=== PATIENT | male | born 1950 | race Caucasian/White ===

== ENCOUNTER 2016-04-13 21:10 | Observation (INO) ==
[2016-04-13] MEDS ORDERED: Ondansetron 4 MG/2 ML VIAL IV ONE (21:21)
[2016-04-13] MEDS ORDERED: Ipratropium/Albuterol Neb 3 ML IH ONE (21:21)
[2016-04-13] MEDS ORDERED: *HR* Morphine 2 MG/ML SYRINGE IV ONE (21:21)
--- NOTE | 2016-04-13 21:24 | Emergency Department Note ---
Disposition Clinical Impression: Chest pain, Edema, COPD (chronic obstructive pulmonary disease) Disposition: Admitted As Inpatient Condition: Fair Referrals: Talita Coffey, FIRE FIGHTER [Primary Care Provider] - Forms: ED Satisfaction Letter Time of Disposition: 23:10 Chest Pain HPI - General Chief Complaint: ED Chest Pain Stated Complaint: chest pain Time Seen by Provider: 04/13/16 21:22 Source: patient, EMS Mode of arrival: EMS Limitations: no limitations Vital Signs Reviewed: Yes Nursing Notes Reviewed: Yes - History of Present Illness HPI Narrative: This is a 65-year-old male who presents with midsternal chest pain starting about 2 hours ago. Patient states that associated shortness of breath. Patient 's not had any cardiac history but he does state he has chronic leg swelling. Patient states he was recently admitted last month for sepsis due to pneumonia. Patient does have COPD but does not wear oxygen at home although while he was rehabbing after his pneumonia he was wearing oxygen. Patient is not running any fevers. Pt complaint: chest pain Onset (ago): hour(s) (2) Severity scale (1-10): 4 - Related Data Home Medications Medication Instructions Recorded Confirmed Cyanocobalamin (Vitamin B-12) 1,000 mcg PO DAILY 01/25/16 03/01/16 [Vitamin B12] Folic Acid 400 mcg PO DAILY 01/25/16 03/01/16 Lovastatin [Mevacor] 20 mg PO DAILY 01/25/16 03/01/16 Mometasone/Formoterol [Dulera 200 2 puff IH BID 01/25/16 03/01/16 Mcg/5 Mcg Inhaler] Potassium Chloride [Klor-Con 10] 20 meq PO DAILY 01/25/16 03/01/16 Albuterol Sulfate [Albuterol 2 puff IH Q6HR PRN 03/01/16 03/01/16 Inhaler] Previous Rx's Medication Instructions Recorded Albuterol Neb [Proventil Neb] 2.5 mg IH Q4HR PRN #30 vial.neb 10/20/15 Ipratropium/Albuterol Neb [Duoneb] 3 ml IH Q6HR 30 Days 01/30/16 OxyCODONE Immed Rel [Roxicodone 5 5 mg PO Q6HR PRN #25 tablet 01/30/16 MG] Amlodipine [Norvasc] 10 mg PO DAILY #0 tablet 03/05/16 Beclomethasone Diprop 80mcg [QVAR 2 puff IH BIDR puff 03/05/16 80 mcg] Cefuroxime PO [Ceftin] 500 mg PO Q12HR #6 tablet 03/05/16 Metoprolol [Lopressor] 25 mg PO BID #60 tablet 03/05/16 Moxifloxacin HCl [Avelox] 400 mg PO DAILY #3 tablet 03/05/16 PredniSONE 40 mg PO DAILY tablet 03/05/16 Tiotropium [Spiriva] 18 mcg IH DAILYR inh 03/05/16 L.acidoph,Paracasei, B.lactis 1 each PO DAILY #30 capsule 04/01/16 [Probiotic] Ondansetron ODT [Zofran ODT] 4 mg SL Q6HR #14 tab.rapdis 04/01/16 Allergies Allergy/AdvReac Type Severity Reaction Status Date / Time ibuprofen [From Motrin] AdvReac Gastrointestinal Verified 04/13/16 21:16 Upset levofloxacin [From Levaquin] AdvReac See Verified 04/13/16 21:16 Comments All systems ED: reviewed and negative except as stated. Constitutional: Denies: fever, chills, weakness, weight change Eyes: Denies: eye pain, eye discharge, vision change ENT ED: Denies: ear pain, throat pain, dental pain, hearing loss, epistaxis, congestion, dysphagia Cardiovascular: Reports: chest pain. Denies: palpitations, dyspnea on exertion , edema, syncope Respiratory: Reports: dyspnea. Denies: cough, wheezes, hemoptysis, stridor Gastrointestinal: Denies: abdominal pain, nausea, vomiting, diarrhea, constipation, hematemesis, melena, hematochezia Genitourinary: Denies: urgency, dysuria, frequency, hematuria Musculoskeletal: Denies: back pain, neck pain, arthralgia, myalgia Integumentary: Denies: rash, abrasion, lesions Neurological: Denies: headache, weakness, numbness, paresthesias, confusion, abnormal gait, vertigo Psychiatric: Denies: anxiety, depression, suicidal thoughts, homicidal thoughts , auditory hallucinations, visual hallucinations Endocrine: Denies: fatigue Hematological/Lymphatic: Denies: easy bleeding, easy bruising Allergic/Immunologic: Denies: facial swelling, urticaria Chest Pain PMH - Past Medical History Medical history: Reports: asthma, COPD, hypertension Surgical history: Reports: other Psychiatric history: Reports: depression - Social History Smoking Status: Current every day smoker Alcohol use: Reports: none Drug use: Reports: none Physical Exam - General Limitations: no limitations General appearance: alert, in no apparent distress - Head Head exam: atraumatic, normocephalic, normal inspection - Eye Eye exam: Present: normal appearance, PERRL, EOMI - ENT ENT exam: normal exam, normal oropharynx, mucous membranes moist - Expanded ENT Exam External ear exam: Present: normal external inspection Mouth exam: Present: normal external inspection Teeth exam: Present: normal inspection Throat exam: Present: normal inspection - Neck Neck exam: Present: normal inspection, full ROM, trachea midline - Chest Chest inspection: Present: normal inspection, symmetric chest wall rise - Respiratory Respiratory exam: Present: wheezes, other (rhonchi) - Cardiovascular Cardiovascular exam: Present: regular rate, normal rhythm, normal heart sounds - Abdominal Exam Abdominal exam: Present: soft, Non-Tender. Absent: tenderness, distention, guarding, rebound, rigidity - Extremities Exam Extremities exam: Present: normal inspection, full ROM. Absent: tenderness, pedal edema - Expanded Upper Extremity Exam Shoulder exam: Present: normal inspection, full ROM Arm exam: Present: normal inspection, full ROM Elbow exam: Present: normal inspection, full ROM Forearm/Wrist exam: Present: normal inspection, full ROM Hand exam: Present: normal inspection, full ROM Vascular exam: Normal: capillary refill, radial pulse - Expanded Lower Extremity Exam Hip/Pelvis exam: Present: normal inspection, full ROM Upper leg exam: Present: normal inspection, full ROM Knee exam: Present: normal inspection, full ROM Lower leg exam: Present: normal inspection, full ROM Ankle exam: Present: normal inspection, full ROM Foot/toe exam: Present: normal inspection, full ROM Neurovascular/Tendon exam: Absent: motor deficit, sensory deficit, tendon deficit - Back Exam Back exam: Present: normal inspection, full ROM. Absent: tenderness - Neurological Exam Neurological exam: Present: alert, oriented X3 - Expanded Neurological Exam Patient oriented to: Present: person, place, time Coma Scale Eye Opening: Spontaneous Coma Scale Motor Response: Obeys Commands Coma Scale Verbal Response: Oriented Coma Scale Total: 15 - Psychiatric Psychiatric exam: Present: normal affect, normal mood - Skin Skin exam: Present: warm, dry, intact, normal color Course - Consultations Consultation #1: I spoke with Dr. Poonam kenyon to admit. Time: 23:27 Vital Signs Temperature 98.8 F 04/13/16 21:13 Pulse Rate 62 04/13/16 21:13 Respiratory Rate 16 04/13/16 21:13 Blood Pressure 185/106 04/13/16 21:13 O2 Sat by Pulse Oximetry 97 04/13/16 21:13 Temperature 98.8 F 04/13/16 21:13 Pulse Rate 62 04/13/16 22:03 Respiratory Rate 20 04/13/16 22:03 Blood Pressure 146/80 04/13/16 22:03 O2 Sat by Pulse Oximetry 100 04/13/16 22:03 Oxygen Delivery Oxygen Delivery Aerosol Mask Chest Pain - Medical Records Medical records reviewed: Yes I reviewed the patient's medical records. - Lab Data Lab results reviewed: Yes I reviewed the patient's lab results. Result diagrams: 04/13/16 21:15 04/13/16 21:15 Lab Results 04/13/16 04/13/16 04/13/16 Range/Units 21:15 21:15 21:15 WBC 7.1 (4.3-11.1) K/mcL RBC 4.92 (4.19-5.50) M/mcL Hgb 15.5 (12.9-16.9) g/dL Hct 48.3 (37.5-50.1) % MCV 98.2 (83.0-100.0) fL MCH 31.5 (28.0-33.3) pg MCHC 32.1 (31.6-35.5) g/dL RDW 13.2 (11.5-14.5) % Plt Count 229 (140-400) K/mcL MPV 9.9 (9.4-12.4) fL Immature Gran % 0.4 (0-4) % Seg Neutrophils % 73.7 % Lymphocytes % 15.0 % Monocytes % 9.9 % Eosinophils % 0.6 % Basophils % 0.4 % Neutrophils # 5.2 (1.6-8.9) K/mcL Lymphocytes # 1.1 (0.6-4.6) K/mcL Monocytes # 0.7 (0.0-1.3) K/mcL Eosinophils # 0.0 (0.0-0.6) K/mcL Basophils # 0.0 (0.0-0.2) K/mcL PT 12.3 H (9.4-12.1) Seconds INR 1.1 APTT 27.6 (26.0-36.0) Seconds D-Dimer 906 H (0-500) ng/mLFEU Sodium 142 (136-145) mEq/L Potassium 4.1 (3.5-4.5) mEq/L Chloride 101 (98-109) mEq/L Carbon Dioxide 30 H (19-29) mEq/L BUN 16 (8-26) mg/dL Creatinine 1.14 (0.72-1.25) mg/dL Est GFR ( Amer) > 60 (> 60) Est GFR (Non-Af Amer) > 60 (> 60) BUN/Creatinine Ratio 14 (6-26) Glucose 94 (70-99) mg/dL Calculated Osmolality 295 (280-300) Calcium 9.5 (8.6-10.8) mg/dL Troponin I (0-0.03) ng/mL B-Natriuretic Peptide (0-100) pg/mL 04/13/16 04/13/16 Range/Units 21:15 21:15 WBC (4.3-11.1) K/mcL RBC (4.19-5.50) M/mcL Hgb (12.9-16.9) g/dL Hct (37.5-50.1) % MCV (83.0-100.0) fL MCH (28.0-33.3) pg MCHC (31.6-35.5) g/dL RDW (11.5-14.5) % Plt Count (140-400) K/mcL MPV (9.4-12.4) fL Immature Gran % (0-4) % Seg Neutrophils % % Lymphocytes % % Monocytes % % Eosinophils % % Basophils % % Neutrophils # (1.6-8.9) K/mcL Lymphocytes # (0.6-4.6) K/mcL Monocytes # (0.0-1.3) K/mcL Eosinophils # (0.0-0.6) K/mcL Basophils # (0.0-0.2) K/mcL PT (9.4-12.1) Seconds INR APTT (26.0-36.0) Seconds D-Dimer (0-500) ng/mLFEU Sodium (136-145) mEq/L Potassium (3.5-4.5) mEq/L Chloride (98-109) mEq/L Carbon Dioxide (19-29) mEq/L BUN (8-26) mg/dL Creatinine (0.72-1.25) mg/dL Est GFR ( Amer) (> 60) Est GFR (Non-Af Amer) (> 60) BUN/Creatinine Ratio (6-26) Glucose (70-99) mg/dL Calculated Osmolality (280-300) Calcium (8.6-10.8) mg/dL Troponin I 0.01 (0-0.03) ng/mL B-Natriuretic Peptide 47 (0-100) pg/mL - Radiology Data Radiology results reviewed: Yes I reviewed the patient's radiology results. - EKG Data EKG attestation: Yes I reviewed and interpreted this EKG. EKG shows normal: sinus rhythm Rate: bradycardia (58) Rhythm: NSR Grabill/QRS: normal Interpretation: no acute changes, normal EKG
[2016-04-13 21:30] LABS: Basophils % 0.4 %; Eosinophils % 0.6 %; Hematocrit 48.3 % (37.5-50.1); Hemoglobin 15.5 g/dL (12.9-16.9); Immature Granulocytes % 0.4 % (0-4); Lymphocytes # 1.1 K/mcL (0.6-4.6); Mean Corpuscular HGB Conc 32.1 g/dL (31.6-35.5); Mean Corpuscular Hemoglobin 31.5 pg (28.0-33.3); Mean Corpuscular Volume 98.2 fL (83.0-100.0); Mean Platelet Volume 9.9 fL (9.4-12.4); Monocytes # 0.7 K/mcL (0.0-1.3); Monocytes % 9.9 %; Neutrophils # 5.2 K/mcL (1.6-8.9); Platelet Count 229 K/mcL (140-400); Red Blood Count 4.92 M/mcL (4.19-5.50); Red Cell Distribution Width 13.2 % (11.5-14.5); Segmented Neutrophils % 73.7 %
[2016-04-13 21:38] LABS: INR 1.1; Prothrombin Time 12.3 Seconds (9.4-12.1)
[2016-04-13 21:40] LABS: Activated Partial Thrombo Time 27.6 Seconds (26.0-36.0)
[2016-04-13 21:42] LABS: BUN/Creatinine Ratio 14 (6-26); Blood Urea Nitrogen 16 mg/dL (8-26); Calcium 9.5 mg/dL (8.6-10.8); Carbon Dioxide 30 mEq/L (19-29); Chloride 101 mEq/L (98-109); Glucose 94 mg/dL (70-99); Osmolality,Calculated 295 (280-300); Potassium 4.1 mEq/L (3.5-4.5); Sodium 142 mEq/L (136-145); eGFR For African Americans > 60 (> 60); eGFR For Non-African Americans > 60 (> 60)
[2016-04-14] MEDS ORDERED: Albuterol 2.5 MG/3 ML NEBULIZER IH PRN (04:02)
[2016-04-14] MEDS ORDERED: *HR* OxyCODONE Immed Rel 5 MG TABLET PO PRN (04:02)
[2016-04-14] MEDS ORDERED: Naloxone 0.4 MG/ML INJ IVP PRN (04:08)
[2016-04-14] MEDS ORDERED: Acetaminophen 325 MG TABLET PO PRN (04:08)
[2016-04-14] MEDS ORDERED: 0.9 % Sodium Chloride 1,000 ML IVC SCH (04:15)
--- NOTE | 2016-04-14 04:21 | Internal Med History&Physical ---
<Urszula Goldman Chad - Last Filed: 04/14/16 05:30> Date of Encounter: 04/14/16 Time of Encounter: 03:15 Assessment and Plan (1) Chest pain Status: Acute EKG: sinus rhythm without evidence of acute ischemia CTA: No evidence of PE -evidence of coronary artery calcification -severe emphysema -no pneumothorax Troponins 0.01, trend q 6hr 28% ASCVD 10-year risk Consult cardiology due significant to risk factors Qualifiers: Chest pain type: unspecified Qualified Code(s): R07.9 - Chest pain, unspecified (2) COPD (chronic obstructive pulmonary disease) Status: Chronic continue home medication Qualifiers: COPD type: emphysema Emphysema type: unspecified Qualified Code(s): J43.9 - Emphysema, unspecified (3) Hypertension Status: Chronic continue home medication Qualifiers: Hypertension type: essential hypertension Qualified Code(s): I10 - Essential (primary) hypertension (4) Tobacco abuse Status: Chronic continues to smoke mini-cigars despite recent PNA with sepsis (5) DVT prophylaxis Status: Acute Internal Medicine - H&P: HPI Chief complaint: chest pain Admitted From: Emergency Dept History of present illness: Mr. Steven is a 65 year old male who presented to the hospital with chest pain that began around 19:30. Patient was napping at the time and awakened with an "uncomfortable feeling" and located in sub-sternal area. Pain was 1/10 at onset and 3-4/10 at its worst. Pain radiated through body to scapulae bilaterally. Sitting up made chest pain worse. Nothing made pain better. He states that pain felt like pleuritic pain he has had in the past. However, this pain was more superior in the chest than previous pain. Patient called EMS. EMS administered baby aspirin en route to ED. Patient states that pain improved while on way to hospital. Patient with recent history of pneumonia with sepsis on 02/29/16. Admits dizziness, palpitations, dyspnea that improved with "fresh cold air. Denies headache, syncope, near syncope, diaphoresis, fever, chills, nasal discharge, racing heart, nausea, vomiting During the time of patient interview, patient complained of sudden onset left shoulder pain radiating down the left arm. Pain was a 3/10 and described as piercing. Patient denied associated chest pain, neck pain, or dyspnea. Past Med Surg Social Fam HX - Past Medical History Medical history: asthma, COPD, hypertension Psychiatric history: depression - Past Surgical History Surgical History: other - Social History Smoking Status: Current every day smoker Smokeless Tobacco Status: No Alcohol use: none Drug use: none - Family History Mother Adopted: No Family Member Ethnicity: Non- Living Status: Age at : 42 Cause of : Lung cancer Hx Family Cardiac Disorders: No Hx Family Respiratory Disorders: No Hx Family Cancer: Yes (lung cancer) Hx Family GI Disorders: No Hx Family Endocrine Disorder: No Hx Family Neuromuscular Disorders: No Hx Family Neurologic Disorders: No Hx Family HEENT Disorders: No Hx Family Autoimmune Disorders: No Father Hx Family Respiratory Disorders: Yes (COPD) Internal Medicine - H&P: Meds Albuterol Neb [Proventil Neb] 2.5 mg IH Q4HR PRN #30 vial.neb 10/20/15 [Rx] Cyanocobalamin (Vitamin B-12) [Vitamin B12] 1,000 mcg PO DAILY 01/25/16 [History ] Folic Acid 400 mcg PO DAILY 01/25/16 [History] Lovastatin [Mevacor] 20 mg PO DAILY 01/25/16 [History] Mometasone/Formoterol [Dulera 200 Mcg/5 Mcg Inhaler] 2 puff IH BID 01/25/16 [ History] Potassium Chloride [Klor-Con 10] 20 meq PO DAILY 01/25/16 [History] Ipratropium/Albuterol Neb [Duoneb] 3 ml IH Q6HR 30 Days 01/30/16 [Rx] Albuterol Sulfate [Albuterol Inhaler] 2 puff IH Q6HR PRN 03/01/16 [History] Metoprolol [Lopressor] 25 mg PO BID #60 tablet 04/14/16 [Rx] PredniSONE 10 mg PO DAILY 04/14/16 [History] Tiotropium [Spiriva] 18 mcg IH DAILY 04/14/16 [History] Allergies ibuprofen [From Motrin] Adverse Reaction (Verified 04/13/16 21:16) Gastrointestinal Upset levofloxacin [From Levaquin] Adverse Reaction (Verified 04/14/16 08:07) Weakness All Systems PM: A 10-system review of systems was performed and is negative for pertinent findings except as documented above in the HPI. - Constitutional Vitals: Temp Pulse Resp BP Pulse Ox 97.6 F 80 19 158/96 92 L 04/14/16 03:51 04/14/16 03:51 04/14/16 03:51 04/14/16 03:51 04/14/16 03:51 General appearance: Present: cooperative, A&O X 3, pleasant - Eye Eye exam: Present: EOMI - Neck Neck exam general surgery: Present: full ROM, supple - Respiratory Respiratory exam: Present: CTAB, prolonged expiratory phase - Cardiovascular Cardiovascular exam: Present: RRR, +S1, +S2 - GI/Abdominal GI/Abdominal exam: Present: normal bowel sounds. Absent: hepatomegaly, splenomegaly, tenderness - Extremities Exam Extremities exam: Present: pedal edema (trace pitting edema), tenderness ( palpation lower extremities bilaterally), warm - Psychiatric Psychiatric exam: Present: anxious, normal affect Internal Med - H&P Results - Labs CBC & Chem 7: 04/13/16 21:15 04/13/16 21:15 - Attending Attestation I examined this patient and my medical decision-making was reviewed with the CREDIT COLLECTION SPECIALIST/PA/Advanced Practice Nurse/Resident Physician. I agree with the documented findings, disposition and treatment plan as described except to the extent set forth below. <Arcelia Levin R - Last Filed: 04/15/16 11:28> Date of Encounter: 04/14/16 Internal Medicine - H&P: HPI History of present illness: Mr. Steven is a 65 year old male All Systems PM: A 10-system review of systems was performed and is negative for pertinent findings except as documented above in the HPI. - Constitutional Vitals: Temp Pulse Resp BP Pulse Ox 98.2 F 71 18 133/76 89 L 04/14/16 07:25 04/14/16 07:25 04/14/16 07:25 04/14/16 07:25 04/14/16 07:25 Internal Med - H&P Results - Labs CBC & Chem 7: 04/13/16 21:15 04/13/16 21:15 - Attending Attestation Agree with management plan
[2016-04-14] MEDS ORDERED: Cefuroxime PO 500 MG TABLET PO SCH (06:00)
[2016-04-14 07:29] VITALS: BP 133/76
[2016-04-14] MEDS ORDERED: levoFLOXacin 500 MG TABLET PO SCH (09:00)
[2016-04-14] MEDS ORDERED: Pantoprazole 40 MG VIAL IVP SCH (09:00)
[2016-04-14] MEDS ORDERED: predniSONE 20 MG TABLET PO SCH (09:00)
[2016-04-14] MEDS ORDERED: Tiotropium 18 MCG inhalation IH SCH (10:00)
[2016-04-14] MEDS ORDERED: Beclomethasone 80mcg MDI IH SCH (10:00)
[2016-04-14] MEDS ORDERED: Regadenoson 0.4 MG/5 ML SYRINGE IVP ONE (10:09)
[2016-04-14] MEDS: Ipratropium/Albuterol Neb 3 ML IH SCH ×2 (10:51→15:44)
[2016-04-14] MEDS ORDERED: Ipratropium/Albuterol Neb 3 ML IH SCH (11:00)
--- NOTE | 2016-04-14 11:50 | Electrocardiograph Report ---
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
--- NOTE | 2016-04-14 12:29 | Nuclear Medicine Stress Report ---
Regadenoson Nuclear Stress Name: Ellis Steven Date of Study: 04/14/2016 Date: 1950 Ht: 70.0 in Medical Record#: [id number] Age: 65 Wt: 166.0 lb Gender: Male Order #: [id number] Location: [facility] Room: [facility] Supervising Provider: Augie Vaughn CNP Reading Physician: Alex Reyes DO, TERRY BENSON FASNC Ordering Physician: Desiree Du CNP Primary Care Physician: Talita Coffey CNP Stress Technologist: Fina Arellano [employer]INDER STE[employer], [employer] Receiving Supervisor: Byron Moulton Indications: Chest Pain Impression: Pharmacologic stress ECG is negative for ischemia at level of heart rate achieved. Gated EF = 77%. Small size, mild intensity, fixed basal inferior perfusion defect. Wall motion is normal. These findings are consistent with artifact. Perfusion imaging was negative for ischemia or infarct. History: Hypertension Hypercholesteremia History of Smoking Stress Test Summary: Stress Test Type: Pharmacologic Regadenoson 0.4mg/5ml given IV Baseline Information: Initial Heart Rate: 79 Blood Pressure: 120/80 Stress Information: Test Terminated Due to (primary): As per protocol Maximum Blood Pressure: 104/70 Maximum Heart Rate: 96 Percent Maximum Heart Rate Achieved: 62 Double Product: 9984 METS Reached: 1 Symptoms: No chest symptoms Nuclear Summary: SPECT myocardial perfusion imaging using Tc99m Sestamibi given intravenously was performed at rest and following cardiac stress testing. The resting images were obtained following initial dose of 9.9 mCi. Following stress an additional dose of 28.0 mCi was given at peak exercise or 30 seconds post regadenoson infusion. Medication Given: Time Medication Dose Units Route Findings: Stress Note * Resting ECG demonstrated normal sinus rhythm. * No baseline arrhythmias were noted. * Pharmacologic stress ECG is negative for ischemia at level of heart rate achieved. * No arrhythmias were noted during stress. * Patient had no chest pain during stress. * Normal hemodynamic responses to pharmacologic stress. Study Quality * Study quality is average. Gated EF % * Gated EF = 77%. Left Ventricle * The left ventricle is not dilated. LVEDV = 66 mL. * Normal wall motion. Inferior Perfusion Rest * The basal inferior segment shows a mild reduction in perfusion. Inferior Perfusion Stress * The basal inferior segment shows a mild reduction in perfusion. TID * No evidence of transient ischemic dilatation. TID ratio = 1.12. Lung Uptake * There is no evidence of increase lung uptake. Updated by Alex Reyes DO, MARCELINO, TERRY, [place] on 04/14/2016 12:24:09 PM electronically signed on 04/14/2016 12:25:16 PM with status of Final
--- NOTE | 2016-04-14 14:10 | Electrocardiograph Report ---
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
--- NOTE | 2016-04-14 14:24 | Discharge Summary ---
Date of Encounter: 04/14/16 Time of Encounter: 13:15 - Discharge Diagnosis (1) Chest pain Priority: Primary Status: Resolved Comments: Patient has denied chest pain since admission. Chest x-ray negative. PE ruled out with CTA. Stress test negative for ischemia or infarct, ACS ruled out. Recommend follow-up outpatient. Qualifiers: Chest pain type: unspecified Qualified Code(s): R07.9 - Chest pain, unspecified (2) COPD (chronic obstructive pulmonary disease) Priority: Secondary Status: Chronic Comments: Patient stating he has recently been started on Xolair, Spiriva, and albuterol and states that his COPD is well controlled. Recommend continued follow-up outpatient. He denied shortness of breath above his normal day of discharge. Qualifiers: COPD type: emphysema Emphysema type: unspecified Qualified Code(s): J43.9 - Emphysema, unspecified (3) DVT prophylaxis Priority: Primary Status: Acute Comments: Observation patient. Up ad jose. (4) Hypertension Priority: Secondary Status: Chronic Comments: Hypertensive at times in the middle of the night however normotensive during the day, metoprolol dosage increased and changed to metoprolol tartrate to allow for BID dosing. Recommend continued outpatient monitoring at home, keeping a log, and following up outpatient. Qualifiers: Hypertension type: essential hypertension Qualified Code(s): I10 - Essential (primary) hypertension (5) Tobacco abuse Priority: Secondary Status: Chronic Comments: Patient declined smoking cessation counseling. - Discharge Medications Prescriptions: Metoprolol [Lopressor] 25 mg PO BID #60 tablet Home Medications: Albuterol Neb [Proventil Neb] 2.5 mg IH Q4HR PRN #30 vial.neb 10/20/15 [Rx] Cyanocobalamin (Vitamin B-12) [Vitamin B12] 1,000 mcg PO DAILY 01/25/16 [History ] Folic Acid 400 mcg PO DAILY 01/25/16 [History] Lovastatin [Mevacor] 20 mg PO DAILY 01/25/16 [History] Mometasone/Formoterol [Dulera 200 Mcg/5 Mcg Inhaler] 2 puff IH BID 01/25/16 [ History] Potassium Chloride [Klor-Con 10] 20 meq PO DAILY 01/25/16 [History] Ipratropium/Albuterol Neb [Duoneb] 3 ml IH Q6HR 30 Days 01/30/16 [Rx] Albuterol Sulfate [Albuterol Inhaler] 2 puff IH Q6HR PRN 03/01/16 [History] Metoprolol [Lopressor] 25 mg PO BID #60 tablet 04/14/16 [Rx] PredniSONE 10 mg PO DAILY 04/14/16 [History] Tiotropium [Spiriva] 18 mcg IH DAILY 04/14/16 [History] Allergies/Adverse Reactions: Allergies ibuprofen [From Motrin] Adverse Reaction (Verified 04/13/16 21:16) Gastrointestinal Upset levofloxacin [From Levaquin] Adverse Reaction (Verified 04/14/16 08:07) Weakness Procedures/tests Complete & Pending: Procedures Performed prior 72 hours Category Date Time Status NM kwan perf SPECT multi [NM] Routine Exams 04/14/16 08:25 Taken EKG [ECG 12 lead ECG] [ECG] Routine Y 04/14/16 03:30 Completed SP pharm nuclear stress Routine Y 04/14/16 08:25 Completed Date of admission: 04/13/16 23:49 Primary care physician: Tailta Coffey CNP Consults: 04/14/16 11:37 Consult to Pest Management Supervisor [CONS] Routine Reason for SW Consult: Discharge planning Discharging clinician: Desiree Du Anticipated date of discharge: 04/14/16 - Patient Status Disposition: Home, Self-Care Condition: Fair Functional capacity at discharge: independent ambulation Overall status at discharge: patient is back to baseline - Discharge Instructions Follow Up With: Talita Coffey CNP [Primary Care Provider] - 04/20/16 11:00 am Additional Instructions: Follow-up with primary care provider as scheduled - Diet and Activity Activity: increase activity as tolerated Diet: low salt diet Hospital course: Mr. Steven is a 65 year old male with past medical history of COPD, hypertension, tobacco abuse. Patient presented to the emergency department chief complaint chest pain that began on the evening of presentation. Patient sitting and was taking a nap and was awakened with an uncomfortable feeling located substernally. Patient stating this pain radiated through his body to her scapulae bilaterally. He stated the pain was worsened with sitting up and was not abated with anything. Patient stating his pain had improved via EMS on his way to the hospital. Of note, patient with recent admission secondary to pneumonia with sepsis on 02/29/16 with resultant ECF stay at [facility]. Workup in the emergency department unremarkable. Chest x-ray negative for acute processes and compatible with chronic COPD. Patient was admitted to the hospitalist service for further evaluation and management. Chest CTA negative for PE and also revealed nodules to the right lower lobe that are likely inflammatory etiology. Patient denies shortness of breath above his normal throughout this admission. He denied chest pain on day of discharge. He had a nuclear stress test that was negative for ischemia or infarct. As he was asymptomatic without chest pain or shortness of breath, he was discharged home in stable condition with close outpatient follow-up recommended. Of note, patient has acquired a portable pulse oximetry meter and was noted to be continually obssessing over his heart rate and pulse ox levels. Reassurance was provided and the patient was encouraged to stop monitoring unless he becomes symptomatic. ITS Impressions Chest X-Ray 04/13/16 21:20 IMPRESSION: 1. No acute cardiopulmonary process identified. 2. Chronic findings compatible with COPD. D/ / Dru Bonilla MD / Dru Bonilla MD Interpreting Provider: Dru Bonilla MD Chest CTA 04/13/16 22:14 IMPRESSION: 1. No definite scan evidence for pulmonary embolus. 2. Coronary artery disease. 3. Emphysema. 4. Clustered poorly defined nodules in the posterior right lower lobe are probably inflammatory. The smaller centrilobular nodules in the left lower lobe are also likely inflammatory or may represent atypical infection. D/ / Tommy Bonner MD / Tommy Bonner MD Interpreting Provider: Tommy Bonner MD Nuclear stress test impression: Pharmacologic stress ECG is negative for ischemia at the level of heart rate achieved. Gated ejection fraction equals 77 %. Small size, mild intensity, fixed basal inferior perfusion defect. Wall motion is normal. These findings are consistent with artifact. Perfusion imaging was negative for ischemia or infarct. - Time Spent with Patient Total time spent providing and/or coordinating discharge services: - Constitutional Vitals: Temp Pulse Resp BP Pulse Ox 98.2 F 71 18 133/76 89 L 04/14/16 07:25 04/14/16 07:25 04/14/16 07:25 04/14/16 07:25 04/14/16 07:25 General appearance: Present: cooperative, A&O X 3, pleasant, no acute distress, answers questions appropriately - Head Head exam: Present: atraumatic, normocephalic - Eye Eye exam: Present: PERRL, conjuntiva pink, sclera anicteric Pupils: Present: PERRL - Neck Neck exam general surgery: Present: supple, trachea midline. Absent: lymphadenopathy - Respiratory Respiratory exam: Present: decreased breath sounds. Absent: accessory muscle use, rales, respiratory distress, rhonchi, wheezes - Cardiovascular Cardiovascular exam: Present: RRR, +S1, +S2. Absent: diastolic murmur, gallop, rubs, systolic murmur - GI/Abdominal GI/Abdominal exam: Present: normal bowel sounds, soft, no peritoneal signs. Absent: distended, tenderness - Extremities Exam Extremities exam: Present: warm, radial pulses palpable and symetrical. Absent : calf tenderness, cyanotic, pedal edema - Neurological Exam Neurological exam: Present: alert, CN II-XII intact, normal gait, oriented X3, no focal deficits, strengths equal and symetr throughout. Absent: pronater drift, facial droop, speech deficit - Skin Skin exam: Present: dry, intact, normal color, warm
== END 2016-04-14 16:30 | disposition home or self-care (01) ==
LOC: EMEROO 21:10 → 3BNU 21:10
PROVIDERS: ADMIT Nurse Practitioner Family; ATTEND Nurse Practitioner Family

== ENCOUNTER 2016-05-17 09:37 | Inpatient (IN) ==
[2016-05-17 12:10] LABS: Bilirubin,Urine Negative (Negative); Blood,Urine Negative (Negative); Clarity,Urine Clear (Clear); Color,Urine Yellow (Yellow); Glucose,Urine (UA) Normal (Normal); Ketones,Urine Negative (Negative); Leukocyte Esterase,Urine Trace (Negative); Nitrite,Urine Negative (Negative); PH,Urine 6.5 pH Units (5.0-8.0); Protein,Urine Negative (Neg-Trace); Specific Gravity,Urine 1.011 (1.010-1.025); Urobilinogen,Urine Normal (Normal)
[2016-05-17 12:12] LABS: Bacteria,Urine None Seen per hpf (None-Few); Hyaline Casts,Urine None Seen per lpf (None-Few); RBC,Urine 0-3 per hpf (0-3); Squamous Epithelial Cell,Urine Moderate per lpf (None-Few); WBC,Urine 0-3 per hpf (0-3)
[2016-05-17 12:23] LABS: Basophils % 0.1 %; Hematocrit 49.7 % (37.5-50.1); Hemoglobin 15.8 g/dL (12.9-16.9); Immature Granulocytes % 0.4 % (0-4); Lymphocytes # 0.4 K/mcL (0.6-4.6); Lymphocytes % 4.3 %; Mean Corpuscular HGB Conc 31.8 g/dL (31.6-35.5); Mean Corpuscular Hemoglobin 31.3 pg (28.0-33.3); Mean Corpuscular Volume 98.4 fL (83.0-100.0); Mean Platelet Volume 9.4 fL (9.4-12.4); Monocytes # 0.2 K/mcL (0.0-1.3); Monocytes % 2.1 %; Platelet Count 172 K/mcL (140-400); Red Blood Count 5.05 M/mcL (4.19-5.50); Red Cell Distribution Width 13.8 % (11.5-14.5); Segmented Neutrophils % 93.1 %
[2016-05-17 12:36] LABS: BUN/Creatinine Ratio 15 (6-26); Blood Urea Nitrogen 17 mg/dL (8-26); C-Reactive Protein 1 mg/L (Less than 5); Calcium 9.2 mg/dL (8.6-10.8); Carbon Dioxide 32 mEq/L (19-29); Chloride 98 mEq/L (98-109); Creatine Kinase 57 Units/L (30-200); Glucose 98 mg/dL (70-99); Magnesium 2.2 mg/dL (1.6-2.6); Osmolality,Calculated 290 (280-300); Phosphorous 3.4 mg/dL (2.3-4.7); Potassium 4.4 mEq/L (3.5-4.5); Sodium 139 mEq/L (136-145); eGFR For African Americans > 60 (> 60); eGFR For Non-African Americans > 60 (> 60)
[2016-05-18 01:11] LABS: Basophils % 0.1 %; Eosinophils % 0.2 %; Hematocrit 42.1 % (37.5-50.1); Immature Granulocytes % 0.6 % (0-4); Lymphocytes # 1.1 K/mcL (0.6-4.6); Mean Corpuscular HGB Conc 32.5 g/dL (31.6-35.5); Mean Corpuscular Hemoglobin 32.2 pg (28.0-33.3); Mean Corpuscular Volume 98.8 fL (83.0-100.0); Mean Platelet Volume 9.7 fL (9.4-12.4); Monocytes # 0.8 K/mcL (0.0-1.3); Monocytes % 8.7 %; Neutrophils # 7.1 K/mcL (1.6-8.9); Platelet Count 157 K/mcL (140-400); Red Blood Count 4.26 M/mcL (4.19-5.50); Red Cell Distribution Width 13.7 % (11.5-14.5); Segmented Neutrophils % 78.4 %
[2016-05-18 01:22] LABS: BUN/Creatinine Ratio 15 (6-26); Blood Urea Nitrogen 19 mg/dL (8-26); Calcium 7.8 mg/dL (8.6-10.8); Carbon Dioxide 31 mEq/L (19-29); Chloride 99 mEq/L (98-109); Glucose 118 mg/dL (70-99); Osmolality,Calculated 289 (280-300); Potassium 4.4 mEq/L (3.5-4.5); Sodium 138 mEq/L (136-145); eGFR For African Americans > 60 (> 60); eGFR For Non-African Americans 58 (> 60)
[2016-05-18 01:26] LABS: Hemoglobin 13.7 g/dL (12.9-16.9)
[2016-05-19 06:12] LABS: Basophils % 0.1 %; Eosinophils # 0.1 K/mcL (0.0-0.6); Eosinophils % 0.7 %; Hematocrit 43.3 % (37.5-50.1); Hemoglobin 13.7 g/dL (12.9-16.9); Immature Granulocytes % 0.5 % (0-4); Lymphocytes # 1.3 K/mcL (0.6-4.6); Lymphocytes % 18.1 %; Mean Corpuscular HGB Conc 31.6 g/dL (31.6-35.5); Mean Corpuscular Hemoglobin 30.9 pg (28.0-33.3); Mean Corpuscular Volume 97.7 fL (83.0-100.0); Mean Platelet Volume 9.8 fL (9.4-12.4); Monocytes # 0.7 K/mcL (0.0-1.3); Monocytes % 9.1 %; Neutrophils # 5.3 K/mcL (1.6-8.9); Platelet Count 156 K/mcL (140-400); Red Blood Count 4.43 M/mcL (4.19-5.50); Red Cell Distribution Width 13.4 % (11.5-14.5); Segmented Neutrophils % 71.5 %
[2016-05-19 06:30] LABS: Chol/HDL Ratio 2.9 (0-4.9)
[2016-05-19 06:34] LABS: BUN/Creatinine Ratio 20 (6-26); Blood Urea Nitrogen 21 mg/dL (8-26); Calcium 7.8 mg/dL (8.6-10.8); Carbon Dioxide 32 mEq/L (19-29); Chloride 102 mEq/L (98-109); Glucose 106 mg/dL (70-99); Osmolality,Calculated 287 (280-300); Potassium 4.6 mEq/L (3.5-4.5); Sodium 137 mEq/L (136-145); eGFR For African Americans > 60 (> 60); eGFR For Non-African Americans > 60 (> 60)
[2016-05-19 06:50] LABS: Hemoglobin A1C 5.2 %
[2016-05-20 05:44] VITALS: BP 153/97
[2016-05-20 07:55] LABS: Bilirubin,Urine Negative (Negative); Blood,Urine Negative (Negative); Clarity,Urine Clear (Clear); Color,Urine Yellow (Yellow); Glucose,Urine (UA) Normal (Normal); Ketones,Urine Negative (Negative); Leukocyte Esterase,Urine Trace (Negative); Nitrite,Urine Negative (Negative); Protein,Urine Negative (Neg-Trace); Specific Gravity,Urine 1.013 (1.010-1.025); Urobilinogen,Urine Normal (Normal)
[2016-05-20 07:57] LABS: Bacteria,Urine None Seen per hpf (None-Few); Hyaline Casts,Urine None Seen per lpf (None-Few); RBC,Urine 0-3 per hpf (0-3); Squamous Epithelial Cell,Urine None Seen per lpf (None-Few); WBC,Urine 0-3 per hpf (0-3)
== END 2016-05-20 12:55 | disposition home or self-care (01) | DRG 66 ==
LOC: EMEROO 09:37 → 2NENU 09:37 → SUATTDRO 17:29 → 2NENU 20:48
PROVIDERS: ADMIT Internal Medicine; ATTEND Internal Medicine

== ENCOUNTER 2016-05-20 13:17 | Observation (INO) ==
[2016-05-20] MEDS ORDERED: Albuterol 2.5 MG/3 ML NEBULIZER IH ONE (14:06)
[2016-05-20 14:08] LABS: Basophils % 0.3 %; Eosinophils # 0.1 K/mcL (0.0-0.6); Hematocrit 45.2 % (37.5-50.1); Hemoglobin 14.6 g/dL (12.9-16.9); Immature Granulocytes % 0.3 % (0-4); Immature Platelets 4.7 % (1.1-6.1); Lymphocytes # 1.5 K/mcL (0.6-4.6); Lymphocytes % 16.3 %; Mean Corpuscular HGB Conc 32.3 g/dL (31.6-35.5); Mean Corpuscular Hemoglobin 31.3 pg (28.0-33.3); Mean Platelet Volume 9.6 fL (9.4-12.4); Monocytes # 0.8 K/mcL (0.0-1.3); Monocytes % 9.2 %; Neutrophils # 6.6 K/mcL (1.6-8.9); Platelet Count 172 K/mcL (140-400); Red Blood Count 4.66 M/mcL (4.19-5.50); Red Cell Distribution Width 13.6 % (11.5-14.5); Segmented Neutrophils % 72.9 %
[2016-05-20 14:21] LABS: Alanine Aminotransferase 26 Units/L (0-55); Albumin 2.8 g/dL (3.5-5.0); Alkaline Phosphatase 63 Units/L (38-126); Aspartate Amino Transferase 22 Units/L (5-34); BUN/Creatinine Ratio 17 (6-26); Bilirubin,Direct 0.2 mg/dL (0.0-0.5); Bilirubin,Indirect 0.2 mg/dL (0.0-1.2); Bilirubin,Total 0.4 mg/dL (0.2-1.2); Blood Urea Nitrogen 17 mg/dL (8-26); Calcium 7.5 mg/dL (8.6-10.8); Carbon Dioxide 24 mEq/L (19-29); Chloride 107 mEq/L (98-109); Ethanol < 10 mg/dL (0-10); Globulin 2.9 g/dL (2.4-3.5); Glucose 148 mg/dL (70-99); Osmolality,Calculated 290 (280-300); Potassium 4.4 mEq/L (3.5-4.5); Sodium 138 mEq/L (136-145); Total Protein 5.7 g/dL (6.0-8.3); eGFR For African Americans > 60 (> 60); eGFR For Non-African Americans > 60 (> 60)
[2016-05-20 14:22] LABS: INR 1.1; Prothrombin Time 11.4 Seconds (9.4-12.1)
[2016-05-20 14:24] LABS: Activated Partial Thrombo Time 26.7 Seconds (26.0-36.0)
--- NOTE | 2016-05-20 14:32 | Emergency Department Note ---
Disposition Clinical Impression: Ataxia Disposition: Admitted As Inpatient Condition: Fair Referrals: NO,PCP [Primary Care Provider] - Forms: ED Satisfaction Letter Time of Disposition: 14:43 General Adult HPI - General Chief complaint: ED General Medical Stated complaint: Unsteady Gait Time Seen by Provider: 05/20/16 13:57 Source: patient Mode of arrival: ambulatory Limitations: no limitations Nursing Notes Reviewed: Yes Vital Signs Reviewed: Yes - History of Present Illness HPI Narrative: Patient presents after having been discharged earlier this morning after several days admission for "mini strokes" and difficulty walking. On his way out the door the hospital to the [facility], he felt that he was unsteady and was not going to be able to go home. He turned around and signed into the emergency department. He does not report any new complaints since discharge. Just a continuation of the symptoms for which she was admitted. Pt Subjective Complaint: Unsteady walking Pain Scale: 0 Worsens with: other (Walking) Associated symptoms: Reports: denies other symptoms Treatments Prior to Arrival: none - Related Data Home Medications Medication Instructions Recorded Confirmed Cyanocobalamin (Vitamin B-12) 1,000 mcg PO DAILY 01/25/16 05/17/16 [Vitamin B12] Folic Acid 400 mcg PO DAILY 01/25/16 05/17/16 Lovastatin [Mevacor] 20 mg PO DAILY 01/25/16 05/17/16 Mometasone/Formoterol [Dulera 200 2 puff IH BID 01/25/16 05/17/16 Mcg/5 Mcg Inhaler] Potassium Chloride [Klor-Con 10] 20 meq PO DAILY 01/25/16 05/17/16 Albuterol Sulfate [Albuterol 2 puff IH Q6HR PRN 03/01/16 05/17/16 Inhaler] PredniSONE 10 mg PO DAILY 04/14/16 04/14/16 Tiotropium [Spiriva] 18 mcg IH DAILY 04/14/16 05/17/16 Furosemide [Lasix] 20 mg PO DAILY 05/17/16 05/17/16 Omeprazole 20 mg PO DAILY 05/18/16 05/18/16 Previous Rx's Medication Instructions Recorded Albuterol Neb [Proventil Neb] 2.5 mg IH Q4HR PRN #30 vial.neb 10/20/15 Metoprolol [Lopressor] 25 mg PO BID #60 tablet 04/14/16 PredniSONE 40 mg PO DAILY #14 tablet 05/09/16 Aspirin 81 mg PO DAILY #30 tab.chew 05/20/16 Allergies Allergy/AdvReac Type Severity Reaction Status Date / Time ibuprofen [From Motrin] AdvReac Gastrointestinal Verified 04/13/16 21:16 Upset levofloxacin [From Levaquin] AdvReac Weakness Verified 04/14/16 08:07 All systems ED: reviewed and negative except as stated. Constitutional: Denies: fever, chills Cardiovascular: Denies: chest pain Respiratory: Denies: dyspnea Gastrointestinal: Denies: abdominal pain Musculoskeletal: Denies: back pain Past Medical History - Past Medical History Attestation: Yes The following information was validated with the patient. Source: old records reviewed, nursing notes reviewed Medical history: Reports: asthma, COPD, GERD, hypertension, TIA Surgical history: Reports: other (tonsillectomy, inguinal hernia repair) Psychiatric history: Reports: depression - Social History Smoking Status: Current every day smoker Smokeless Tobacco Status: No Alcohol use: Reports: none Drug use: Reports: none Physical Exam - General Limitations: no limitations General appearance: alert, in no apparent distress - Head Head exam: atraumatic, normocephalic - Eye Eye exam: Present: normal appearance, PERRL - ENT ENT exam: normal exam, mucous membranes moist, normal external ear exam - Neck Neck exam: Present: normal inspection, full ROM - Chest Chest inspection: Present: normal inspection, symmetric chest wall rise. Absent : tenderness - Respiratory Respiratory exam: Present: wheezes (faint wheezes at bases). Absent: respiratory distress - Cardiovascular Cardiovascular exam: Present: regular rate, normal rhythm, normal heart sounds - Abdominal Exam Abdominal exam: Present: soft, Non-Tender - Extremities Exam Extremities exam: Present: full ROM. Absent: tenderness - Neurological Exam Neurological exam: Present: alert, oriented X3 - Psychiatric Psychiatric exam: Present: normal affect, normal mood - Skin Skin exam: Present: warm, dry Course Course Narrative: The patient was just discharged from the hospital for the complaint that he is pointing out at this time. He did not actually even get to the transport that was taking him home before he decided to turn around and sign back into the emergency department. I did not feel an ER visit was necessary for this and contacted hospitalist to evaluate the patient to decide whether he needed to be readmitted or discharged home. It was decided that he could just be sent upstairs to the room he was just discharged from. However we tried to make that arrangement, that management said that we were not allowed to do that and that he had to have a start over workup done. So I did not exam and did not find any acute illness. Laboratory workup was initiated and so far no acute changes. I put in an order for him to be admitted. We are waiting for the bed assignment. Vital Signs Temperature 97.7 F 05/20/16 13:22 Pulse Rate 87 05/20/16 13:22 Respiratory Rate 18 05/20/16 13:22 Blood Pressure 147/90 05/20/16 13:22 O2 Sat by Pulse Oximetry 96 05/20/16 13:22 Temperature 97.7 F 05/20/16 13:22 Pulse Rate 87 05/20/16 13:57 Respiratory Rate 18 05/20/16 13:57 Blood Pressure 147/90 05/20/16 13:57 O2 Sat by Pulse Oximetry 96 05/20/16 13:57 Oxygen Delivery Oxygen Delivery Room Air Medical Decision Making - Medical Records Medical records reviewed: Yes I reviewed the patient's medical records. - Lab Data Lab results reviewed: Yes I reviewed the patient's lab results. Result diagrams: 05/20/16 14:01 05/20/16 14:01 Lab Results 05/20/16 05/20/16 05/20/16 Range/Units 14:01 14:01 14:01 WBC 9.0 (4.3-11.1) K/mcL RBC 4.66 (4.19-5.50) M/mcL Hgb 14.6 (12.9-16.9) g/dL Hct 45.2 (37.5-50.1) % MCV 97.0 (83.0-100.0) fL MCH 31.3 (28.0-33.3) pg MCHC 32.3 (31.6-35.5) g/dL RDW 13.6 (11.5-14.5) % Plt Count 172 (140-400) K/mcL MPV 9.6 (9.4-12.4) fL Immature Gran % 0.3 (0-4) % Seg Neutrophils % 72.9 % Lymphocytes % 16.3 % Monocytes % 9.2 % Eosinophils % 1.0 % Basophils % 0.3 % Neutrophils # 6.6 (1.6-8.9) K/mcL Lymphocytes # 1.5 (0.6-4.6) K/mcL Monocytes # 0.8 (0.0-1.3) K/mcL Eosinophils # 0.1 (0.0-0.6) K/mcL Basophils # 0.0 (0.0-0.2) K/mcL Immature Plt Fraction 4.7 (1.1-6.1) % PT 11.4 (9.4-12.1) Seconds INR 1.1 APTT 26.7 (26.0-36.0) Seconds Sodium 138 (136-145) mEq/L Potassium 4.4 (3.5-4.5) mEq/L Chloride 107 (98-109) mEq/L Carbon Dioxide 24 (19-29) mEq/L BUN 17 (8-26) mg/dL Creatinine 1.03 (0.72-1.25) mg/dL Est GFR ( Amer) > 60 (> 60) Est GFR (Non-Af Amer) > 60 (> 60) BUN/Creatinine Ratio 17 (6-26) Glucose 148 H (70-99) mg/dL Calculated Osmolality 290 (280-300) Calcium 7.5 L (8.6-10.8) mg/dL Total Bilirubin 0.4 (0.2-1.2) mg/dL Direct Bilirubin 0.2 (0.0-0.5) mg/dL Indirect Bilirubin 0.2 (0.0-1.2) mg/dL AST 22 (5-34) Units/L ALT 26 (0-55) Units/L Alkaline Phosphatase 63 (38-126) Units/L Troponin I (0-0.03) ng/mL Serum Total Protein 5.7 L (6.0-8.3) g/dL Albumin 2.8 L (3.5-5.0) g/dL Globulin 2.9 (2.4-3.5) g/dL Albumin/Globulin Ratio 1.0 L (1.1-2.2) Ethyl Alcohol < 10 (0-10) mg/dL 05/20/16 Range/Units 14:01 WBC (4.3-11.1) K/mcL RBC (4.19-5.50) M/mcL Hgb (12.9-16.9) g/dL Hct (37.5-50.1) % MCV (83.0-100.0) fL MCH (28.0-33.3) pg MCHC (31.6-35.5) g/dL RDW (11.5-14.5) % Plt Count (140-400) K/mcL MPV (9.4-12.4) fL Immature Gran % (0-4) % Seg Neutrophils % % Lymphocytes % % Monocytes % % Eosinophils % % Basophils % % Neutrophils # (1.6-8.9) K/mcL Lymphocytes # (0.6-4.6) K/mcL Monocytes # (0.0-1.3) K/mcL Eosinophils # (0.0-0.6) K/mcL Basophils # (0.0-0.2) K/mcL Immature Plt Fraction (1.1-6.1) % PT (9.4-12.1) Seconds INR APTT (26.0-36.0) Seconds Sodium (136-145) mEq/L Potassium (3.5-4.5) mEq/L Chloride (98-109) mEq/L Carbon Dioxide (19-29) mEq/L BUN (8-26) mg/dL Creatinine (0.72-1.25) mg/dL Est GFR ( Amer) (> 60) Est GFR (Non-Af Amer) (> 60) BUN/Creatinine Ratio (6-26) Glucose (70-99) mg/dL Calculated Osmolality (280-300) Calcium (8.6-10.8) mg/dL Total Bilirubin (0.2-1.2) mg/dL Direct Bilirubin (0.0-0.5) mg/dL Indirect Bilirubin (0.0-1.2) mg/dL AST (5-34) Units/L ALT (0-55) Units/L Alkaline Phosphatase (38-126) Units/L Troponin I 0.01 (0-0.03) ng/mL Serum Total Protein (6.0-8.3) g/dL Albumin (3.5-5.0) g/dL Globulin (2.4-3.5) g/dL Albumin/Globulin Ratio (1.1-2.2) Ethyl Alcohol (0-10) mg/dL - EKG Data EKG #1 EKG attestation: Yes I reviewed and interpreted this EKG. EKG shows normal: sinus rhythm, axis, intervals, QRS complexes, ST-T waves Rate: normal Interpretation: no acute changes, normal EKG
[2016-05-20 16:10] LABS: Bilirubin,Urine Negative (Negative); Blood,Urine Negative (Negative); Clarity,Urine Clear (Clear); Color,Urine Yellow (Yellow); Glucose,Urine (UA) Normal (Normal); Ketones,Urine Negative (Negative); Leukocyte Esterase,Urine Trace (Negative); Nitrite,Urine Negative (Negative); PH,Urine 5.5 pH Units (5.0-8.0); Protein,Urine Negative (Neg-Trace); Specific Gravity,Urine 1.015 (1.010-1.025); Urobilinogen,Urine Normal (Normal)
[2016-05-20 16:15] LABS: Bacteria,Urine None Seen per hpf (None-Few); Hyaline Casts,Urine None Seen per lpf (None-Few); RBC,Urine 0-3 per hpf (0-3); Squamous Epithelial Cell,Urine Few per lpf (None-Few)
[2016-05-20 16:37] LABS: Amphetamine Screen,Urine Negative ng/mL (Cutoff=1000); Barbiturate Screen,Urine Negative ng/mL (Cutoff=200); Benzodiazepines Screen,Urine Negative ng/mL (Cutoff=200); Cannabinoid Screen,Urine Negative ng/mL (Cutoff = 50); Cocaine Screen,Urine Negative ng/mL (Cutoff= 300); Opiate Screen,Urine Negative ng/mL (Cutoff=300); Phencyclidine Screen,Urine Negative ng/mL (Cutoff=25)
[2016-05-20] MEDS ORDERED: Albuterol 2.5 MG/3 ML NEBULIZER IH PRN (19:54)
[2016-05-20] MEDS ORDERED: Naloxone 0.4 MG/ML INJ IVP PRN (19:56)
[2016-05-20] MEDS: Ipratropium/Albuterol Neb 3 ML IH SCH (21:41)
--- NOTE | 2016-05-20 22:48 | Internal Med History&Physical ---
<Tequila Guzman - Last Filed: 05/20/16 23:21> Date of Encounter: 05/20/16 Time of Encounter: 22:45 Assessment and Plan (1) Leg weakness, bilateral Current visit: No Status: Acute Patient presents with leg weakness bilaterally when trying to walk. He reports that this is the same he had on admission a few days ago. This has completely resolved at this time. On previous admission, patient had MRI showeing ischemic foci in the right semiovale and right MCA watershed area. I do not believe that this is a new stroke at this time. Seeing as patient just had a MRI, carotid duplex and ECHO within the last week, new tests are not indicated at this time. Will monitor patient overnight, consult PT/OT and provide symptomatic care. If patient does not feel safe going home, social consult might be indicated. (2) CVA (cerebral vascular accident) Current visit: No Status: Acute MRI during previous admission showed ischemic foci in the right centrum semiovale and right MCA [place] area. Patient's symptoms are a continuation of this and he reports no new symptoms at this time. Will continue with medical and supportive therapy. Qualifiers: CVA mechanism: embolism Precerebral and cerebral artery: unspecified cerebral artery Qualified Code(s): I63.40 - Cerebral infarction due to embolism of unspecified cerebral artery (3) COPD (chronic obstructive pulmonary disease) Current visit: No Status: Chronic Patient with history of COPD. Will continue home medications and nebulizer treatments. Qualifiers: COPD type: emphysema Emphysema type: unspecified Qualified Code(s): J43.9 - Emphysema, unspecified (4) Hypertension Current visit: No Status: Chronic Patient with history of hypertension. Will monitor blood pressure and continue home medications. Qualifiers: Hypertension type: essential hypertension Qualified Code(s): I10 - Essential (primary) hypertension (5) DVT prophylaxis Current visit: No Status: Acute Heparin for DVT prophylaxis. Internal Medicine - H&P: HPI Chief complaint: Unstead on feet Admitted From: Emergency Dept History of present illness: Mr. Steven is a 65 year old male with PMH of COPD, HTN, GERD and sepsis secondary to pneumonia who presented to the ED shortly after discharge stating he felt unstead on his feet. Patient was admitted 05/17/2016 with bilateral LE weakness, trouble walking and unsteady gate. MRI of brain showed small foci of acute iscemia at the right central semi ovale at the right MCA watershed territory. Patient was seen by neurology who receommended medicla and supportive care. Carotid duplex revealed no carotid artery stenosis and ECHO revelaed EFof 79% with mild left ventricular diastolic disfunction. Patient was discharged earlier today. On the way to his cab, he says he felt like his feet were unsteady, "like jello," exactly like when he first presented. He also reports some tingling in his left and numbness along his left crawford. He lives alone and did not feel safe going home so he returned to the ED for admission. Patient denies any ANTON, changes in vision, SOB, chest pain, nausea/ vomiting, abdominal pain, or changes in bowel or bladder. He reports no new symptoms. In the ED, patient was afebrile, vital signs within normal limits. On exam, patient is awake and alert. He reports that his symptoms have completely resolved and right now he has no complaints. Heart regular rate and rhythm. Lungs clear to auscultation. Extraoccular movements and peripheral vision intact. Upper and lower strength equal bilaterally. Sensation intact upper and lower extremities. No focal neurological changes on exam. Past Med Surg Social Fam HX - Past Medical History Medical history: asthma, COPD, GERD, hypertension, TIA Psychiatric history: depression - Past Surgical History Surgical History: other - Social History Smoking Status: Current every day smoker Smokeless Tobacco Status: No Alcohol use: none Drug use: none - Family History Mother Adopted: No Family Member Ethnicity: Non- Living Status: Hx Family Cardiac Disorders: No Hx Family Respiratory Disorders: No Hx Family Cancer: Yes (lung cancer) Hx Family GI Disorders: No Hx Family Endocrine Disorder: No Hx Family Neuromuscular Disorders: No Hx Family Neurologic Disorders: No Hx Family HEENT Disorders: No Hx Family Autoimmune Disorders: No Father Living Status: Hx Family Respiratory Disorders: Yes (COPD) Internal Medicine - H&P: Meds Albuterol Neb [Proventil Neb] 2.5 mg IH Q4HR PRN #30 vial.neb 10/20/15 [Rx] Cyanocobalamin (Vitamin B-12) [Vitamin B12] 1,000 mcg PO DAILY 01/25/16 [History ] Folic Acid 400 mcg PO DAILY 01/25/16 [History] Lovastatin [Mevacor] 20 mg PO DAILY 01/25/16 [History] Mometasone/Formoterol [Dulera 200 Mcg/5 Mcg Inhaler] 2 puff IH BID 01/25/16 [ History] Potassium Chloride [Klor-Con 10] 20 meq PO DAILY 01/25/16 [History] Albuterol Sulfate [Albuterol Inhaler] 2 puff IH Q6HR PRN 03/01/16 [History] Metoprolol [Lopressor] 25 mg PO BID #60 tablet 04/14/16 [Rx] PredniSONE 10 mg PO DAILY 04/14/16 [History] Tiotropium [Spiriva] 18 mcg IH DAILY 04/14/16 [History] PredniSONE 40 mg PO DAILY #14 tablet 05/09/16 [Rx] Furosemide [Lasix] 20 mg PO DAILY 05/17/16 [History] Omeprazole 20 mg PO DAILY 05/18/16 [History] Aspirin 81 mg PO DAILY #30 tab.chew 05/20/16 [Rx] Allergies ibuprofen [From Motrin] Adverse Reaction (Verified 04/13/16 21:16) Gastrointestinal Upset levofloxacin [From Levaquin] Adverse Reaction (Verified 04/14/16 08:07) Weakness All Systems PM: A 10-system review of systems was performed and is negative for pertinent findings except as documented above in the HPI. - Constitutional Constitutional: weakness, no chills, no fever(s) - EENT Eyes: no change in vision Nose, mouth and throat: no nasal congestion, no sore throat - Cardiovascular Cardiovascular ROS IM: no chest pain, no diaphoresis, no dyspnea on exertion, no edema, no irregular heart rhythm, no lightheadedness - Respiratory Respiratory: no cough, no dyspnea, no hemoptysis, no wheezing - Gastrointestinal Gastrointestinal: no abdominal pain, no constipation, no diarrhea, no nausea, no vomiting - Genitourinary Genitourinary ROS male: no difficulty urinating - Musculoskeletal Musculoskeletal ROS IM: tingling Additional comments: Unsteady gate. - Neurological Neurological ROS: tingling, weakness, no confusion, no headache(s), no loss of vision - Constitutional Vitals: Temp Pulse Resp BP Pulse Ox 98.0 F 64 16 123/73 96 05/20/16 20:18 05/20/16 20:18 05/20/16 21:42 05/20/16 20:18 05/20/16 21:42 General appearance: Present: A&O X 3, pleasant, no acute distress, answers questions appropriately - Head Head exam: Present: atraumatic, normal inspection, normocephalic - Eye Eye exam: Present: EOMI, normal appearance. Absent: nystagmus - Respiratory Respiratory exam: Present: CTAB. Absent: rales, rhonchi, wheezes - Cardiovascular Cardiovascular exam: Present: RRR - GI/Abdominal GI/Abdominal exam: Present: soft. Absent: guarding, rebound, rigid, tenderness - Extremities Exam Extremities exam: Present: normal inspection, warm. Absent: pedal edema - Neurological Exam Neurological exam: Present: alert, CN II-XII intact, oriented X3, no focal deficits Internal Med - H&P Results - Labs CBC & Chem 7: 05/20/16 14:01 05/20/16 14:01 Labs: Urine 05/20/16 Range/Units 15:49 Urine Color Yellow (Yellow) Urine Clarity Clear (Clear) Urine pH 5.5 (5.0-8.0) pH Units Ur Specific [place] 1.015 (1.010-1.025) Urine Protein Negative (Neg-Trace) mg/dL Urine Glucose (UA) Normal (Normal) mg/dL <Gigi Rahman - Last Filed: 05/21/16 01:32> Date of Encounter: 05/20/16 Time of Encounter: 21:30 Assessment and Plan (1) CVA (cerebral vascular accident) Current visit: No Status: Acute Qualifiers: CVA mechanism: embolism Precerebral and cerebral artery: unspecified cerebral artery Qualified Code(s): I63.40 - Cerebral infarction due to embolism of unspecified cerebral artery (2) COPD (chronic obstructive pulmonary disease) Current visit: No Status: Chronic Qualifiers: COPD type: emphysema Emphysema type: unspecified Qualified Code(s): J43.9 - Emphysema, unspecified (3) Hypertension Current visit: No Status: Chronic Qualifiers: Hypertension type: essential hypertension Qualified Code(s): I10 - Essential (primary) hypertension (4) Leg weakness, bilateral Current visit: No Status: Acute Internal Medicine - H&P: HPI History of present illness: Mr. Steven is a 65 year old male All Systems PM: A 10-system review of systems was performed and is negative for pertinent findings except as documented above in the HPI. - Constitutional Vitals: Temp Pulse Resp BP Pulse Ox 97.6 F 54 16 144/82 94 L 05/21/16 00:01 05/21/16 00:01 05/21/16 00:01 05/21/16 00:01 05/21/16 00:01 Internal Med - H&P Results - Labs CBC & Chem 7: 05/20/16 14:01 05/20/16 14:01 Labs: Urine 05/20/16 Range/Units 15:49 Urine Color Yellow (Yellow) Urine Clarity Clear (Clear) Urine pH 5.5 (5.0-8.0) pH Units Ur Specific [place] 1.015 (1.010-1.025) Urine Protein Negative (Neg-Trace) mg/dL Urine Glucose (UA) Normal (Normal) mg/dL - Attending Attestation This document has been at least partially created by [employer] recognition technology by Dr. Rahman. Errors in grammar, wording or other phrases may exist. If errors are found after the documentation is signed, they will be addressed individually in the addendum section of this document when appropriate. I examined this patient and my medical decision-making was reviewed with the Resident Physician. I agree with the documented history of present illness, review of systems, past medical, surgical social and family histories and examination findings, disposition and treatment plan as described above except to any changes set forth below. 65-year-old male patient with recently diagnosed stroke was discharged from the hospital earlier today and Returned to the ER with complaints of instability and ataxia. His symptoms have mostly subsided now. Prior to discharge he was evaluated by physical therapy and neurology and cleared for discharge. Patient lives alone at home and he did not feel safe to go home and so he returned to the ER. Denies any speech abnormalities, focal weakness or numbness. Physical examination: Patient is awake alert and oriented. Not in any distress. Respiratory exam shows normal breath sounds, prolonged expiration. Cardiovascular exam shows normal S1 and S2 and regular rhythm. Abdomen is soft and nontender. Neurologic exam shows normal cranial nerves, no focal deficits. Normal strength and sensation. Bilateral lower extremity weakness: Patient currently does not demonstrate any weakness on examination. Does not appear to be having new stroke at this time. Will continue management with physical therapy. Also social insurance administrator consult for discharge planning. Recent CVA: In the right MCA watershed area. Continue physical therapy. No focal deficits at this time. COPD: Not in acute exacerbation. Continue nebs as needed. Chest x-ray shows no pneumonia.
[2016-05-21] MEDS: Ipratropium/Albuterol Neb 3 ML IH SCH ×3 (04:33→15:47)
[2016-05-21] MEDS: *HR* Heparin 5,000 UNIT/ML VIAL SQ SCH ×2 (06:27→14:32)
[2016-05-21] MEDS ORDERED: Nicotine 14 MG PATCH.TD24 TD SCH (06:34)
[2016-05-21] MEDS ORDERED: Aspirin 81 MG TAB.CHEW PO SCH (09:00)
[2016-05-21] MEDS ORDERED: Furosemide 20 MG TABLET PO SCH (09:00)
[2016-05-21] MEDS ORDERED: Cyanocobalamin (B-12) 1,000 MCG TABLET PO SCH (09:00)
[2016-05-21] MEDS ORDERED: Tiotropium 18 MCG inhalation IH SCH (09:00)
[2016-05-21] MEDS ORDERED: Folic Acid 1 MG TABLET PO SCH (09:00)
[2016-05-21] MEDS ORDERED: predniSONE 10 MG TABLET PO SCH (09:00)
--- NOTE | 2016-05-21 09:40 | Internal Med Progress Note ---
Date of Encounter: 05/21/16 Time of Encounter: 08:55 - Assessment and plan (1) Leg weakness, bilateral Current Visit: No Status: Acute Assessment and plan: Pt states that he feels better today and that he did well with his PT. Labs and vitals are WNL. Will continue to monitor VS and labs. (2) CVA (cerebral vascular accident) Current Visit: No Status: Acute Assessment and plan: Pt has no deficits. Neuro exam is WNL. Pt reports chucky hand numbness which has been going on for at least a month. Pt has no difficulty with grasp, they are strong and equal chucky, as is leg strength. Pt's speech is normal. Monitor VS. Qualifiers: CVA mechanism: embolism Precerebral and cerebral artery: unspecified cerebral artery Qualified Code(s): I63.40 - Cerebral infarction due to embolism of unspecified cerebral artery (3) COPD (chronic obstructive pulmonary disease) Current Visit: Yes Status: Chronic Assessment and plan: Lungs are clear and diminished throughout. Pt denies increase in sputum, actually states that he has a decrease today. Sats 94% on room air. He speaks easily in full sentences and denies LAURENT with PT this a.m. Continue nebs prn Monitor labs Qualifiers: COPD type: emphysema Emphysema type: unspecified Qualified Code(s): J43.9 - Emphysema, unspecified (4) Hypertension Current Visit: No Status: Chronic Assessment and plan: Vitals stable today. Continue to monitor. Qualifiers: Hypertension type: essential hypertension Qualified Code(s): I10 - Essential (primary) hypertension - Subjective Interval history: Pt is alert and oriented, sitting at bs in chair. He recounts history of yesterday and states that he just didn't feel well. He does state that he feels better today, but does not think that he is ready to go home. He feels that another day would make him more ready to go home. He voiced concern that his friend who normally helps him is gone for the weekend, however, the friend goes away every weekend. He also feels that part of the problem yesterday was that he had his hospital slipper socks on with his shoes which made him feel as if he were "walking on bubbles". Today he is going to try his diabetic socks instead. He denies any SOB or dyspnea, reports decreased sputum with cough, and said that he felt really good after his PT this a.m. - Constitutional Vitals: Temp Pulse Resp BP Pulse Ox 98.4 F 71 16 134/88 94 L 05/21/16 07:30 05/21/16 07:30 05/21/16 07:30 05/21/16 07:30 05/21/16 07:30 General appearance: Present: cooperative, A&O X 3, pleasant, no acute distress, answers questions appropriately - Neck Neck exam general surgery: Absent: lymphadenopathy, tenderness - Respiratory Respiratory exam: Present: decreased breath sounds, CTAB. Absent: accessory muscle use, chest wall tenderness, rales, rhonchi, wheezes, tachypnea - Cardiovascular Cardiovascular exam: Present: RRR, +S1, +S2. Absent: tachycardia - GI/Abdominal GI/Abdominal exam: Present: normal bowel sounds, soft. Absent: tenderness - Extremities Exam Extremities exam: Present: normal capillary refill, pedal edema. Absent: calf tenderness Additional comments: Pt has edema to ankles and states that shins are tender to palpation, however, pulses are palpable and he has no pretibial edema. - Neurological Exam Neurological exam: Present: alert, oriented X3. Absent: no focal deficits, strengths equal and symetr throughout, facial droop, speech deficit - Psychiatric Psychiatric exam: Present: anxious, normal affect Additional comments: Pt verbalizes anxiety about going home alone. Internal Medicine: Result - Labs CBC & Chem 7: 05/20/16 14:01 05/20/16 14:01 Labs: Urine 05/20/16 Range/Units 15:49 Urine Color Yellow (Yellow) Urine Clarity Clear (Clear) Urine pH 5.5 (5.0-8.0) pH Units Ur Specific [place] 1.015 (1.010-1.025) Urine Protein Negative (Neg-Trace) mg/dL Urine Glucose (UA) Normal (Normal) mg/dL - ABG Interpretation ABG results: PT/INR, D-dimer PT 11.4 Seconds (9.4-12.1) 05/20/16 14:01 Consult Discharge Plan - Plan Referrals: Talita Coffey, [employer] [Primary Care Provider] -
--- NOTE | 2016-05-21 12:01 | Electrocardiograph Report ---
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
--- NOTE | 2016-05-21 14:43 | Discharge Summary ---
<Almaz Cohen - Last Filed: 05/21/16 14:38> Date of Encounter: 05/21/16 Time of Encounter: 14:30 - Discharge Diagnosis (1) Leg weakness, bilateral Priority: Primary Status: Acute Comments: Pt states that he feels better today and did well with his PT. Chucky hand grasp strong, as is chucky leg strength. Pt has +2 pedal pulses in BUE and BLE. Labs are WNL. Pt to f/u with PCP. (2) CVA (cerebral vascular accident) Priority: Secondary Status: Acute Comments: Stable. No deficits. Pt to follow up with PCP. Qualifiers: CVA mechanism: embolism Precerebral and cerebral artery: unspecified cerebral artery Qualified Code(s): I63.40 - Cerebral infarction due to embolism of unspecified cerebral artery (3) COPD (chronic obstructive pulmonary disease) Priority: Secondary Status: Chronic Comments: Pt well controlled at this time. Denies increase in need for nebs or increase in sputum. Lungs are clear, no leukocytosis, no need for antibiotics on discharge. Continue home medications and follow up with PCP. Qualifiers: COPD type: emphysema Emphysema type: unspecified Qualified Code(s): J43.9 - Emphysema, unspecified (4) Hypertension Priority: Secondary Status: Chronic Comments: Chronic. Continue home medications. Follow up with PCP. Qualifiers: Hypertension type: essential hypertension Qualified Code(s): I10 - Essential (primary) hypertension (5) Anxiety Priority: Secondary Status: Acute Comments: Will give Vistaril prn for anxiety. Follow up with PCP for evaluation. - Discharge Medications Prescriptions: HydrOXYzine Pamoate [Vistaril] 25 mg PO Q6H PRN #20 capsule PRN Reason: Anxiety Home Medications: Albuterol Neb [Proventil Neb] 2.5 mg IH Q4HR PRN #30 vial.neb 10/20/15 [Rx] Cyanocobalamin (Vitamin B-12) [Vitamin B12] 1,000 mcg PO DAILY 01/25/16 [History ] Folic Acid 400 mcg PO DAILY 01/25/16 [History] Lovastatin [Mevacor] 20 mg PO DAILY 01/25/16 [History] Mometasone/Formoterol [Dulera 200 Mcg/5 Mcg Inhaler] 2 puff IH BID 01/25/16 [ History] Potassium Chloride [Klor-Con 10] 20 meq PO DAILY 01/25/16 [History] Albuterol Sulfate [Albuterol Inhaler] 2 puff IH Q6HR PRN 03/01/16 [History] Metoprolol [Lopressor] 25 mg PO BID #60 tablet 04/14/16 [Rx] PredniSONE 10 mg PO DAILY 04/14/16 [History] Tiotropium [Spiriva] 18 mcg IH DAILY 04/14/16 [History] PredniSONE 40 mg PO DAILY #14 tablet 05/09/16 [Rx] Furosemide [Lasix] 20 mg PO DAILY 05/17/16 [History] Omeprazole 20 mg PO DAILY 05/18/16 [History] Aspirin 81 mg PO DAILY #30 tab.chew 05/20/16 [Rx] HydrOXYzine Pamoate [Vistaril] 25 mg PO Q6H PRN #20 capsule 05/21/16 [Rx] Allergies/Adverse Reactions: Allergies ibuprofen [From Motrin] Adverse Reaction (Verified 04/13/16 21:16) Gastrointestinal Upset levofloxacin [From Levaquin] Adverse Reaction (Verified 04/14/16 08:07) Weakness Date of admission: 05/20/16 14:43 Primary care physician: Talita Coffey CNP Consults: 05/20/16 19:58 Consult to Occupational Therapy [CONS] Routine Comment: Evaluate, develop and implement POC Consult to Physical Therapy [CONS] Routine Comment: Evaluate, develop and implement POC Consult to Fabrication Inspector [CONS] Routine Reason for SW Consult: Discharge Planning Discharging clinician: Almaz Cohen Anticipated date of discharge: 05/21/16 - Patient Status Disposition: Home, Self-Care Condition: Good Functional capacity at discharge: independent ambulation Overall status at discharge: patient is back to baseline - Discharge Instructions Follow Up With: Talita Coffey CNP [Primary Care Provider] - Additional Instructions: Follow up with your primary care provider within 1-2 weeks. - Diet and Activity Activity: resume usual activities as tolerated Diet: advance to your usual diet Hospital course: Mr. Steven is a 65 year old male who was discharged from [facility] yesterday after admission for pneumonia and sepsis, was outside to get into his taxi and began to not feel well, weak, and came back inside and signed in to be seen in the ED. Pt was readmitted for evaluation for weakness, CVA, COPD, and HTN. Pt had an uneventful night on the unit and today states that he feels better, however, would like to have another day in the hospital to "mentally prepare" for going home. Pt lives alone in a 1 bedroom apartment above a garage in town. He is close to public transportation, grocery shopping, and has food at home. He is concerned that his friend who normally helps him is out of town for the weekend. His lungs are clear and he is not in respiratory distress, speaks easily. Since imaging was done a few days ago, none were repeated. Labs are WNL exept for glucose, which was 148, however his A1c was WNL yesterday. Pt has no deficits from CVA, which was diagnosed by MRI on 05/18, few small foci of acute ischemia at the R central semi ovale at the R MCA watershed territory. During his last stay he was evaluated by PT and OT who determine he had no needs. Pt has an upright and steady gait during this admission. Pt is stable for discharge. ITS Impressions Chest X-Ray 05/20/16 13:58 IMPRESSION: Negative portable chest x-ray. No evidence of acute cardiopulmonary disease. D/ / Angel Cuenca MD / Angel Cuenca MD Interpreting Provider: Angel Cuenca MD - Time Spent with Patient Total time spent providing and/or coordinating discharge services: Greater than 30 minutes Specific discharge activities: Pt required extra encouragement with provider and Hiv/Aids Care Nurse for extended time. - Constitutional Vitals: Temp Pulse Resp BP Pulse Ox 97.8 F 58 16 133/81 94 L 05/21/16 11:00 05/21/16 11:21 05/21/16 11:21 05/21/16 11:21 05/21/16 11:21 General appearance: Present: cooperative, A&O X 3, pleasant, no acute distress, answers questions appropriately - Eye Eye exam: Present: normal appearance, conjuntiva pink - ENT ENT exam: Present: mucous membranes moist, normal external ear exam - Neck Neck exam general surgery: Present: normal inspection, trachea midline. Absent : lymphadenopathy, tenderness - Respiratory Respiratory exam: Present: decreased breath sounds, CTAB. Absent: rales, rhonchi, stridor, wheezes, tachypnea - Cardiovascular Cardiovascular exam: Present: RRR, +S1, +S2 - GI/Abdominal GI/Abdominal exam: Present: normal bowel sounds, soft. Absent: tenderness - Extremities Exam Extremities exam: Present: full ROM, normal capillary refill, normal inspection , warm, radial pulses palpable and symetrical. Absent: calf tenderness, pedal edema, tenderness - Neurological Exam Neurological exam: Present: alert, oriented X3, no focal deficits, strengths equal and symetr throughout. Absent: facial droop, speech deficit - Psychiatric Psychiatric exam: Present: anxious, normal affect <Orion DuDesiree - Last Filed: 05/21/16 15:35> Date of Encounter: 05/21/16 Procedures/tests Complete & Pending: Procedures Performed prior 72 hours Category Date Time Status ECG 12 lead ECG [ECG] Routine Y 05/20/16 14:06 Completed Date of admission: 05/20/16 14:43 Primary care physician: Talita Coffey CNP Consults: 05/20/16 19:58 Consult to Occupational Therapy [CONS] Routine Comment: Evaluate, develop and implement POC Consult to Physical Therapy [CONS] Routine Comment: Evaluate, develop and implement POC Consult to Fabrication Inspector [CONS] Routine Reason for SW Consult: Discharge Planning Hospital course: Patient seen and examined. On examination, patient alert and oriented 3. Patient stating he no longer has weakness and was noted to have an upright and steady gait throughout this admission. Abnormal urinalysis noted however urine culture from 05/19/16 negative. Patient denies dysuria. Tox screen negative. After lengthy discussion with the patient in concert with geriatric social worker, patient came back to the hospital for social reasons. He lives alone and the neighbor that typically checks on him bleeds every weekend and he states he does not want to be alone. He was evaluated before he was discharged yesterday and OT and PT surmise T had no needs. Patient was educated to do not stay in the hospital simply because he is lonely at home. He denies feeling unsafe. He denies any threats to himself. He has clear anxiety when speaking and tends to perseverate on worst care scenarios. He is scattered and unable to focus on one topic. He continually brings up his "sepsis" problem stating that it will never fully go away and he is scared that his sepsis will keep coming back. Overall, he is safe and he is able to make medical decisions. Strongly recommend outpatient therapy and becoming involved in extracurricular activities to make new acquaintances and to keep him busy. There is not a safety or medical issue that would necessitate this patient being kept in the inpatient hospital setting. He was discharged home in stable condition. - Time Spent with Patient Total time spent providing and/or coordinating discharge services: - Constitutional Vitals: Temp Pulse Resp BP Pulse Ox 97.7 F 74 18 128/81 96 05/21/16 15:04 05/21/16 15:04 05/21/16 15:04 05/21/16 15:04 05/21/16 15:04 General appearance: Present: cooperative, A&O X 3, pleasant, no acute distress, answers questions appropriately - Head Head exam: Present: atraumatic, normocephalic - Eye Eye exam: Present: PERRL, conjuntiva pink, sclera anicteric Pupils: Present: PERRL - Neck Neck exam general surgery: Present: supple, trachea midline. Absent: lymphadenopathy - Respiratory Respiratory exam: Present: decreased breath sounds. Absent: accessory muscle use, CTAB, rales, respiratory distress, rhonchi, wheezes - Cardiovascular Cardiovascular exam: Present: RRR, +S1, +S2. Absent: diastolic murmur, gallop, rubs, systolic murmur - GI/Abdominal GI/Abdominal exam: Present: normal bowel sounds, soft, no peritoneal signs. Absent: distended, tenderness - Extremities Exam Extremities exam: Present: warm, radial pulses palpable and symetrical. Absent : calf tenderness, cyanotic, pedal edema - Neurological Exam Neurological exam: Present: alert, CN II-XII intact, normal gait, oriented X3, no focal deficits, strengths equal and symetr throughout. Absent: pronater drift, facial droop, speech deficit - Psychiatric Psychiatric exam: Present: anxious. Absent: suicidal ideation - Expanded Psychiatric Exam Focused psych exam: Present: loose associations, perseverating, pressured speech , psychomotor agitation, restlessness - Skin Skin exam: Present: dry, intact, normal color, warm
[2016-05-21 15:05] VITALS: BP 128/81
--- NOTE | 2016-05-21 17:10 | Electrocardiograph Report ---
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
== END 2016-05-21 16:15 | disposition home or self-care (01) ==
LOC: EMEROO 13:17 → 3NENU 13:17 → SUATTDRO 14:43 → 3BNU 15:06
PROVIDERS: ADMIT Internal Medicine; ATTEND Nurse Practitioner Family

== ENCOUNTER 2016-08-26 14:17 | Inpatient (IN) ==
--- NOTE | 2016-08-26 14:27 | Emergency Department Note ---
Disposition Clinical Impression: Acute exacerbation of chronic obstructive airways disease, Abnormal EKG, HTN ( hypertension), HLD (hyperlipidemia), Frail elderly, Cerebrovascular disease, History of stroke Disposition: Admitted As Inpatient Referrals: NO,PCP [Primary Care Provider] - General Adult HPI - General Stated complaint: LIZETH Time Seen by Provider: 08/26/16 14:23 - History of Present Illness HPI Narrative: 65-year-old male with a history of COPD reports emergency department complaining of shortness of breath. The patient has had a cough. He states he is becoming increasingly short of breath with particular exacerbations while ambulating. He reports he cannot walk very for without becoming significantly short of breath. He has taken 3 nebulizers today. He has had a cough but no coughing of blood leg swelling or pain or syncope. There is no history of acute chest pain no abdominal pain vomiting or diarrhea. No back pain urinary symptoms sore throat runny nose or ear pain. No trouble moving the arms or legs independently. The patient reports a remote stroke about 3-4 months ago, he underwent rehabilitation denies any significant residual or acute neurologic changes. There is no history of rash. The patient usually wears oxygen at home , 2 L nasal cannula. - Related Data Home Medications Medication Instructions Recorded Confirmed Cyanocobalamin (Vitamin B-12) 1,000 mcg PO DAILY 01/25/16 05/20/16 [Vitamin B12] Folic Acid 400 mcg PO DAILY 01/25/16 05/20/16 Lovastatin [Mevacor] 20 mg PO DAILY 01/25/16 05/20/16 Mometasone/Formoterol [Dulera 200 2 puff IH BID 01/25/16 05/20/16 Mcg/5 Mcg Inhaler] Potassium Chloride [Klor-Con 10] 20 meq PO DAILY 01/25/16 05/20/16 Albuterol Sulfate [Albuterol 2 puff IH Q6HR PRN 03/01/16 05/20/16 Inhaler] Tiotropium [Spiriva] 18 mcg IH DAILY 04/14/16 05/20/16 predniSONE [PredniSONE] 10 mg PO DAILY 04/14/16 05/20/16 Furosemide [Lasix] 20 mg PO DAILY 05/17/16 05/20/16 Omeprazole 20 mg PO DAILY 05/18/16 05/20/16 Previous Rx's Medication Instructions Recorded Albuterol Neb [Proventil Neb] 2.5 mg IH Q4HR PRN #30 vial.neb 10/20/15 Metoprolol [Lopressor] 25 mg PO BID #60 tablet 04/14/16 predniSONE [PredniSONE] 40 mg PO DAILY #14 tablet 05/09/16 Aspirin 81 mg PO DAILY #30 tab.chew 05/20/16 HydrOXYzine Pamoate [Vistaril] 25 mg PO Q6H PRN #20 capsule 05/21/16 GuaiFENesin ER [Mucinex] 1,200 mg PO BID #20 tbbp.12hr 07/27/16 cephALEXin [Keflex] 500 mg PO QID #40 capsule 07/27/16 predniSONE [PredniSONE] 60 mg PO DAILY 5 Days 07/27/16 predniSONE [PredniSONE] 20 mg PO BIDWM #12 tablet 08/09/16 Allergies Allergy/AdvReac Type Severity Reaction Status Date / Time ibuprofen [From Motrin] AdvReac Gastrointestinal Verified 06/11/16 21:48 Upset levofloxacin [From Levaquin] AdvReac Weakness Verified 06/11/16 21:48 All systems ED: reviewed and negative except as stated. Past Medical History - Past Medical History Medical history: Reports: COPD, hypertension, other Surgical history: Reports: other Psychiatric history: Reports: depression - Social History Smoking Status: Current every day smoker Smokeless Tobacco Status: No Alcohol use: Reports: none Drug use: Reports: none Physical Exam - General Limitations: no limitations General appearance: alert, in no apparent distress - Head Head exam: atraumatic, normocephalic, normal inspection - Eye Eye exam: Present: normal appearance, PERRL, EOMI. Absent: scleral icterus, conjunctival injection, miosis, mydriasis, periorbital swelling - ENT ENT exam: normal exam, normal oropharynx, mucous membranes moist, TM's normal bilaterally, normal external ear exam - Neck Neck exam: Present: normal inspection, full ROM, trachea midline - Chest Chest inspection: Present: symmetric chest wall rise. Absent: tenderness - Respiratory Respiratory exam: Present: prolonged expiratory phase. Absent: normal lung sounds bilaterally, respiratory distress, wheezes, stridor, accessory muscle use - Cardiovascular Cardiovascular exam: Present: regular rate, normal rhythm, normal heart sounds - Abdominal Exam Abdominal exam: Present: soft, Non-Tender, normal bowel sounds. Absent: tenderness, distention, guarding, rebound, rigidity, pulsatile mass - Extremities Exam Extremities exam: Present: normal inspection, full ROM, normal capillary refill. Absent: tenderness, pedal edema, joint swelling, calf tenderness - Expanded Lower Extremity Exam Lower leg exam: Absent: Homans' sign Neurovascular/Tendon exam: Absent: normal capillary refill, pulse deficit, motor deficit, sensory deficit, tendon deficit, extremity cold to touch, pallor - Back Exam Back exam: Present: normal inspection, full ROM. Absent: tenderness, CVA tenderness (R), CVA tenderness (L), vertebral tenderness - Neurological Exam Neurological exam: Present: alert, oriented X3, CN II-XII intact. Absent: motor sensory deficit - Psychiatric Psychiatric exam: Present: normal affect, normal mood - Skin Skin exam: Present: warm, dry, intact. Absent: normal color (Forearms bilaterally dorsal surface show what appear to be darkened lesions non- blanchable purpural type. No crepitance or bleeding or open lesion. Other exposed skin is unremarkable in appearance.), rash, cyanosis, diaphoresis, erythema, pallor, mottled Course Vital Signs Temperature 98.4 F 08/26/16 14:18 Pulse Rate 61 08/26/16 14:18 Respiratory Rate 22 08/26/16 14:18 Blood Pressure 137/96 08/26/16 14:18 O2 Sat by Pulse Oximetry 98 08/26/16 14:18 Temperature 98.4 F 08/26/16 14:18 Pulse Rate 60 08/26/16 16:33 Respiratory Rate 18 08/26/16 16:33 Blood Pressure 142/83 08/26/16 16:33 O2 Sat by Pulse Oximetry 98 08/26/16 16:33 Oxygen Delivery Oxygen Delivery Nasal Cannula Medical Decision Making - [facility] Narrative Medical decision making narrative: The patient is elderly, has a history of CPD and does not usually require oxygen. He was somewhat tachypneic in the ED and describes significant dyspnea particularly with exertion. He had taken 3 nebulizer treatments at home and was still short of breath on arrival. We gave him an albuterol neb (because he does not like duo nebs, he reports they cause him difficulty and a medication reaction) and noted his peak flow was still 90. Solu-Medrol was given in the ED as well as antibiotic therapy. Blood cultures were sent. The patient was provided with 2 L of oxygen which brought his saturations into the 90s. He appeared to be stable. The patient states that he is so short of breath when he exerts himself that he does not feel comfortable going home. When he went to radiology describes significant dyspnea as well. Based on the patient's apparent failed outpatient therapy with 4 nebulizers and a peak flow reportedly about 90 and known COPD I thought it be appropriate to admit the patient for observation. He is highly agreeable. The patient does display abnormalities on his EKG, troponin negative, he is not experiencing chest pain. I discussed the case with the hospitalist on-call who has accepted the patient to their care. The patient is currently stable on oxygen pending admission. - Lab Data Lab results reviewed: Yes I reviewed the patient's lab results. Result diagrams: 08/26/16 15:36 08/26/16 15:36 Lab Results 08/26/16 08/26/16 08/26/16 Range/Units 15:36 15:36 15:36 WBC 7.1 (4.3-11.1) K/mcL RBC 4.96 (4.19-5.50) M/mcL Hgb 15.6 (12.9-16.9) g/dL Hct 49.2 (37.5-50.1) % MCV 99.2 (83.0-100.0) fL MCH 31.5 (28.0-33.3) pg MCHC 31.7 (31.6-35.5) g/dL RDW 13.1 (11.5-14.5) % Plt Count 171 (140-400) K/mcL MPV 9.9 (9.4-12.4) fL Immature Gran % 0.1 (0-4) % Seg Neutrophils % 85.3 % Lymphocytes % 7.5 % Monocytes % 6.6 % Eosinophils % 0.1 % Basophils % 0.4 % Neutrophils # 6.0 (1.6-8.9) K/mcL Lymphocytes # 0.5 L (0.6-4.6) K/mcL Monocytes # 0.5 (0.0-1.3) K/mcL Eosinophils # 0.0 (0.0-0.6) K/mcL Basophils # 0.0 (0.0-0.2) K/mcL PT (9.4-12.1) Seconds INR APTT (26.0-36.0) Seconds Sodium 141 (136-145) mEq/L Potassium 4.4 (3.5-4.5) mEq/L Chloride 100 (98-109) mEq/L Carbon Dioxide 33 H (19-29) mEq/L BUN 17 (8-26) mg/dL Creatinine 1.04 (0.72-1.25) mg/dL Est GFR ( Amer) > 60 (> 60) Est GFR (Non-Af Amer) > 60 (> 60) BUN/Creatinine Ratio 16 (6-26) Glucose 101 H (70-99) mg/dL Calculated Osmolality 294 (280-300) Lactic Acid 0.9 (0.5-2.2) mmol/L Calcium 9.0 (8.6-10.8) mg/dL Total Bilirubin 0.6 (0.2-1.2) mg/dL Direct Bilirubin 0.2 (0.0-0.5) mg/dL Indirect Bilirubin 0.4 (0.0-1.2) mg/dL AST 20 (5-34) Units/L ALT 22 (0-55) Units/L Alkaline Phosphatase 87 (38-126) Units/L Troponin I (0-0.03) ng/mL C-Reactive Protein (Less than 5) mg/L B-Natriuretic Peptide (0-100) pg/mL Serum Total Protein 6.9 (6.0-8.3) g/dL Albumin 3.5 (3.5-5.0) g/dL Globulin 3.4 (2.4-3.5) g/dL Albumin/Globulin Ratio 1.0 L (1.1-2.2) 08/26/16 08/26/16 08/26/16 Range/Units 15:36 15:36 15:36 WBC (4.3-11.1) K/mcL RBC (4.19-5.50) M/mcL Hgb (12.9-16.9) g/dL Hct (37.5-50.1) % MCV (83.0-100.0) fL MCH (28.0-33.3) pg MCHC (31.6-35.5) g/dL RDW (11.5-14.5) % Plt Count (140-400) K/mcL MPV (9.4-12.4) fL Immature Gran % (0-4) % Seg Neutrophils % % Lymphocytes % % Monocytes % % Eosinophils % % Basophils % % Neutrophils # (1.6-8.9) K/mcL Lymphocytes # (0.6-4.6) K/mcL Monocytes # (0.0-1.3) K/mcL Eosinophils # (0.0-0.6) K/mcL Basophils # (0.0-0.2) K/mcL PT 12.1 (9.4-12.1) Seconds INR 1.1 APTT 27.9 (26.0-36.0) Seconds Sodium (136-145) mEq/L Potassium (3.5-4.5) mEq/L Chloride (98-109) mEq/L Carbon Dioxide (19-29) mEq/L BUN (8-26) mg/dL Creatinine (0.72-1.25) mg/dL Est GFR ( Amer) (> 60) Est GFR (Non-Af Amer) (> 60) BUN/Creatinine Ratio (6-26) Glucose (70-99) mg/dL Calculated Osmolality (280-300) Lactic Acid (0.5-2.2) mmol/L Calcium (8.6-10.8) mg/dL Total Bilirubin (0.2-1.2) mg/dL Direct Bilirubin (0.0-0.5) mg/dL Indirect Bilirubin (0.0-1.2) mg/dL AST (5-34) Units/L ALT (0-55) Units/L Alkaline Phosphatase (38-126) Units/L Troponin I 0.00 (0-0.03) ng/mL C-Reactive Protein (Less than 5) mg/L B-Natriuretic Peptide 38 (0-100) pg/mL Serum Total Protein (6.0-8.3) g/dL Albumin (3.5-5.0) g/dL Globulin (2.4-3.5) g/dL Albumin/Globulin Ratio (1.1-2.2) 08/26/16 Range/Units 15:36 WBC (4.3-11.1) K/mcL RBC (4.19-5.50) M/mcL Hgb (12.9-16.9) g/dL Hct (37.5-50.1) % MCV (83.0-100.0) fL MCH (28.0-33.3) pg MCHC (31.6-35.5) g/dL RDW (11.5-14.5) % Plt Count (140-400) K/mcL MPV (9.4-12.4) fL Immature Gran % (0-4) % Seg Neutrophils % % Lymphocytes % % Monocytes % % Eosinophils % % Basophils % % Neutrophils # (1.6-8.9) K/mcL Lymphocytes # (0.6-4.6) K/mcL Monocytes # (0.0-1.3) K/mcL Eosinophils # (0.0-0.6) K/mcL Basophils # (0.0-0.2) K/mcL PT (9.4-12.1) Seconds INR APTT (26.0-36.0) Seconds Sodium (136-145) mEq/L Potassium (3.5-4.5) mEq/L Chloride (98-109) mEq/L Carbon Dioxide (19-29) mEq/L BUN (8-26) mg/dL Creatinine (0.72-1.25) mg/dL Est GFR ( Amer) (> 60) Est GFR (Non-Af Amer) (> 60) BUN/Creatinine Ratio (6-26) Glucose (70-99) mg/dL Calculated Osmolality (280-300) Lactic Acid (0.5-2.2) mmol/L Calcium (8.6-10.8) mg/dL Total Bilirubin (0.2-1.2) mg/dL Direct Bilirubin (0.0-0.5) mg/dL Indirect Bilirubin (0.0-1.2) mg/dL AST (5-34) Units/L ALT (0-55) Units/L Alkaline Phosphatase (38-126) Units/L Troponin I (0-0.03) ng/mL C-Reactive Protein 8 H (Less than 5) mg/L B-Natriuretic Peptide (0-100) pg/mL Serum Total Protein (6.0-8.3) g/dL Albumin (3.5-5.0) g/dL Globulin (2.4-3.5) g/dL Albumin/Globulin Ratio (1.1-2.2) - Radiology Data Radiology results reviewed: Yes I reviewed the patient's radiology results.
[2016-08-26] MEDS ORDERED: methylPREDNISolone 125 MG/2 ML VIAL IVP ONE (14:34)
[2016-08-26] MEDS ORDERED: Albuterol 2.5 MG/3 ML NEBULIZER IH ONE (14:40)
[2016-08-26] MEDS ORDERED: Azithromycin 500 MG in D5% in Water 250 ML IVPB ONE (15:22)
[2016-08-26 15:46] LABS: Basophils % 0.4 %; Eosinophils % 0.1 %; Hematocrit 49.2 % (37.5-50.1); Hemoglobin 15.6 g/dL (12.9-16.9); Immature Granulocytes % 0.1 % (0-4); Lymphocytes # 0.5 K/mcL (0.6-4.6); Lymphocytes % 7.5 %; Mean Corpuscular HGB Conc 31.7 g/dL (31.6-35.5); Mean Corpuscular Hemoglobin 31.5 pg (28.0-33.3); Mean Corpuscular Volume 99.2 fL (83.0-100.0); Mean Platelet Volume 9.9 fL (9.4-12.4); Monocytes # 0.5 K/mcL (0.0-1.3); Monocytes % 6.6 %; Platelet Count 171 K/mcL (140-400); Red Blood Count 4.96 M/mcL (4.19-5.50); Red Cell Distribution Width 13.1 % (11.5-14.5); Segmented Neutrophils % 85.3 %
[2016-08-26 15:54] LABS: INR 1.1; Prothrombin Time 12.1 Seconds (9.4-12.1)
[2016-08-26 15:56] LABS: Activated Partial Thrombo Time 27.9 Seconds (26.0-36.0)
[2016-08-26 16:01] LABS: Alanine Aminotransferase 22 Units/L (0-55); Albumin 3.5 g/dL (3.5-5.0); Alkaline Phosphatase 87 Units/L (38-126); Aspartate Amino Transferase 20 Units/L (5-34); BUN/Creatinine Ratio 16 (6-26); Bilirubin,Direct 0.2 mg/dL (0.0-0.5); Bilirubin,Indirect 0.4 mg/dL (0.0-1.2); Bilirubin,Total 0.6 mg/dL (0.2-1.2); Blood Urea Nitrogen 17 mg/dL (8-26); Carbon Dioxide 33 mEq/L (19-29); Chloride 100 mEq/L (98-109); Globulin 3.4 g/dL (2.4-3.5); Glucose 101 mg/dL (70-99); Osmolality,Calculated 294 (280-300); Potassium 4.4 mEq/L (3.5-4.5); Sodium 141 mEq/L (136-145); Total Protein 6.9 g/dL (6.0-8.3); eGFR For African Americans > 60 (> 60); eGFR For Non-African Americans > 60 (> 60)
[2016-08-26] MEDS ORDERED: Ondansetron 4 MG/2 ML VIAL IVP PRN (19:44)
[2016-08-26] MEDS ORDERED: Naloxone 0.4 MG/ML INJ IVP PRN (19:44)
[2016-08-26] MEDS ORDERED: Acetaminophen 325 MG TABLET PO PRN (19:44)
--- NOTE | 2016-08-26 19:48 | Internal Med History&Physical ---
Date of Encounter: 08/26/16 Time of Encounter: 19:46 Assessment and Plan (1) Acute exacerbation of chronic obstructive airways disease Current visit: Yes Status: Acute Patient is acute COPD his admission. Patient will be admitted to inpatient status. Expected to be in the hospital for at least 2 midnights. Moderate risk of worsening respiratory failure and the possible need for intubation. Expected discharge disposition is to home. Breathing treatments around the clock. Steroids and antibiotics. (2) HTN (hypertension) Current visit: Yes Status: Chronic Patient has well-controlled blood pressure. Continue home medications. Qualifiers: Hypertension type: essential hypertension Qualified Code(s): I10 - Essential (primary) hypertension (3) History of stroke Current visit: Yes Status: Chronic History of the stroke in the past (4) Tobacco abuse Current visit: Yes Status: Chronic Counseled regarding cessation. Nicotine patch Internal Medicine - H&P: HPI Chief complaint: Shortness of breath Admitted From: Emergency Dept Plans for Post Hospital Care: Home History of present illness: Mr. Steven is a 65 year old male with a history of COPD who continues to smoke cigarettes present is emergency Department due to sudden onset shortness of breath. Patient states that he does not use oxygen at home. His shortness of breath started worsening today morning associated with chest tightness and wheezing. He denies having any cough or sputum production. He denies any fever or chills. He denies feeling lightheaded, having chest pain, orthopnea or paroxysmal nocturnal dyspnea. The patient denies any headache or palpitations. He denies any changes in his weight or appetite. He reports some rash on both his arms. Past Med Surg Social Fam HX - Past Medical History Attestation: Yes The following information was validated with the patient. Source: patient Medical history: COPD, CVA, hypertension, other Psychiatric history: depression - Past Surgical History Surgical History: non-contributory, other - Social History Smoking Status: Current every day smoker Packs per day: 1/2 Smokeless Tobacco Status: No Alcohol use: none Drug use: none Current living situation: Home - Independent Activity Level: Independent ambulation Recent Out of Country Travel Within the Last 8 Weeks: No Exposure or Possible Exposure to Illness During Travel: No - Family History Mother Adopted: No Family Member Ethnicity: Non- Living Status: Hx Family Cardiac Disorders: No Hx Family Respiratory Disorders: No Hx Family Cancer: Yes (lung cancer) Hx Family GI Disorders: No Hx Family Endocrine Disorder: No Hx Family Neuromuscular Disorders: No Hx Family Neurologic Disorders: No Hx Family HEENT Disorders: No Hx Family Autoimmune Disorders: No Father Living Status: Hx Family Respiratory Disorders: Yes (COPD) Internal Medicine - H&P: Meds Albuterol Neb [Proventil Neb] 2.5 mg IH Q4HR PRN #30 vial.neb 10/20/15 [Rx] Cyanocobalamin (Vitamin B-12) [Vitamin B12] 1,000 mcg PO DAILY 01/25/16 [History ] Lovastatin [Mevacor] 40 mg PO DAILY 01/25/16 [History] Mometasone/Formoterol [Dulera 200 Mcg/5 Mcg Inhaler] 2 puff IH BID 01/25/16 [ History] Potassium Chloride [Klor-Con 10] 20 meq PO DAILY 01/25/16 [History] Albuterol Sulfate [Albuterol Inhaler] 2 puff IH Q4H PRN 03/01/16 [History] Metoprolol [Lopressor] 25 mg PO BID #60 tablet 04/14/16 [Rx] Tiotropium [Spiriva] 18 mcg IH DAILY 04/14/16 [History] Furosemide [Lasix] 20 mg PO DAILY 05/17/16 [History] Aspirin 81 mg PO DAILY #30 tab.chew 05/20/16 [Rx] Acetaminophen [Tylenol] 500 mg PO Q6H PRN 08/26/16 [History] Ergocalciferol (VITAMIN D2) [Vitamin D] 400 unit PO DAILY 08/26/16 [History] Folic Acid 0.4 mg PO DAILY 08/26/16 [History] Lansoprazole [Prevacid] 15 mg PO QAM 08/26/16 [History] Primidone [Mysoline] 50 mg PO BID 08/26/16 [History] predniSONE [PredniSONE] 10 mg PO DAILY 08/26/16 [History] Allergies ibuprofen [From Motrin] Adverse Reaction (Verified 06/11/16 21:48) Gastrointestinal Upset levofloxacin [From Levaquin] Adverse Reaction (Verified 06/11/16 21:48) Weakness All Systems PM: A 10-system review of systems was performed and is negative for pertinent findings except as documented above in the HPI. Review of systems: 10 systems have been reviewed and are negative except as mentioned in the history of present illness - Constitutional Vitals: Temp Pulse Resp BP Pulse Ox 98.4 F 60 19 135/86 97 08/26/16 14:18 08/26/16 19:01 08/26/16 19:38 08/26/16 19:38 08/26/16 19:01 Exam: Gen.: Lying in bed. Mild distress. Eyes: Pupils equal, round and reactive to light. Extraocular muscles intact. ENT: Moist mucous membranes. No oropharyngeal erythema or discharge. Chest: Reduced air entry bilaterally. Intermittent end expiratory wheezing present. Not using accessory muscles of respiration. CVS: First and second heart sounds present. No murmurs, rubs or gallops. Abdomen: Soft, nontender, nondistended. Bowel sounds present. No hepatosplenomegaly. Skin: No decubitus ulcers appreciated. Erythematous rash on bilateral forearms on the dorsal aspect. EXCEL ANALYST: No focal neuro deficits present. Psychiatric: Alert, awake and oriented to time, place and person. Lymphatic system: No lymphadenopathy appreciated Internal Med - H&P Results - Labs CBC & Chem 7: 08/26/16 15:36 08/26/16 15:36 - Diagnostic Studies Chest x-ray Status: image reviewed by me (No acute infiltrate or abnormality detected)
[2016-08-26] MEDS: Ipratropium Neb 0.5 MG NEBULIZER IH SCH ×2 (19:53→23:09)
[2016-08-26] MEDS: Albuterol 2.5 MG/3 ML NEBULIZER IH SCH ×2 (19:53→23:10)
[2016-08-26] MEDS: Doxycycline 100 MG CAPSULE PO SCH (20:56)
[2016-08-26] MEDS: 0.9 % Sodium Chloride 1,000 ML IVC SCH (20:57)
[2016-08-26] MEDS: methylPREDNISolone 125 MG/2 ML VIAL IVP SCH (23:50)
[2016-08-27] MEDS: Albuterol 2.5 MG/3 ML NEBULIZER IH SCH ×6 (03:22→23:13)
[2016-08-27] MEDS: Ipratropium Neb 0.5 MG NEBULIZER IH SCH (03:22)
[2016-08-27 05:16] LABS: Basophils % 0.1 %; Hematocrit 43.7 % (37.5-50.1); Hemoglobin 14.2 g/dL (12.9-16.9); Immature Granulocytes % 0.3 % (0-4); Immature Platelets 5.3 % (1.1-6.1); Lymphocytes # 0.4 K/mcL (0.6-4.6); Lymphocytes % 5.2 %; Mean Corpuscular HGB Conc 32.5 g/dL (31.6-35.5); Mean Corpuscular Hemoglobin 31.8 pg (28.0-33.3); Mean Corpuscular Volume 97.8 fL (83.0-100.0); Mean Platelet Volume 10.3 fL (9.4-12.4); Monocytes # 0.1 K/mcL (0.0-1.3); Monocytes % 1.8 %; Neutrophils # 6.2 K/mcL (1.6-8.9); Platelet Count 172 K/mcL (140-400); Red Blood Count 4.47 M/mcL (4.19-5.50); Red Cell Distribution Width 12.9 % (11.5-14.5); Segmented Neutrophils % 92.6 %
[2016-08-27 05:34] LABS: Alanine Aminotransferase 19 Units/L (0-55); Albumin 3.1 g/dL (3.5-5.0); Alkaline Phosphatase 75 Units/L (38-126); Aspartate Amino Transferase 20 Units/L (5-34); BUN/Creatinine Ratio 18 (6-26); Bilirubin,Total 0.7 mg/dL (0.2-1.2); Blood Urea Nitrogen 17 mg/dL (8-26); Calcium 8.5 mg/dL (8.6-10.8); Carbon Dioxide 29 mEq/L (19-29); Chloride 100 mEq/L (98-109); Globulin 3.1 g/dL (2.4-3.5); Glucose 132 mg/dL (70-99); Osmolality,Calculated 291 (280-300); Potassium 4.4 mEq/L (3.5-4.5); Sodium 139 mEq/L (136-145); Total Protein 6.2 g/dL (6.0-8.3); eGFR For African Americans > 60 (> 60); eGFR For Non-African Americans > 60 (> 60)
[2016-08-27] MEDS: methylPREDNISolone 125 MG/2 ML VIAL IVP SCH ×2 (07:48→16:54)
[2016-08-27] MEDS: Doxycycline 100 MG CAPSULE PO SCH ×2 (07:49→20:09)
[2016-08-27] MEDS: Nicotine 7 MG PATCH.TD24 TD SCH (07:49)
[2016-08-27] MEDS: 0.9 % Sodium Chloride 1,000 ML IVC SCH (09:33)
--- NOTE | 2016-08-27 15:32 | Internal Med Progress Note ---
Date of Encounter: 08/27/16 Time of Encounter: 09:00 - Assessment and plan (1) Acute exacerbation of chronic obstructive airways disease Current Visit: No Status: Acute Assessment and plan: Patient reports having shortness of breath and chest tightness for the last 4 days. He follows closely with his nurse navigator who urged him to go to urgent care, instead he came to the emergency department. He is been admitted for exacerbation of COPD. His lungs are very tight, lung sounds are diminished but clear. There is no wheezing, rhonchi, Rales. He is not in respiratory distress, he speaks easily in full sentences. He is wearing supplemental oxygen. Sats are within normal limits. There is no peripheral edema. He does have a moist sounding nonproductive cough. I have added Robitussin-DM to his regimen. Continue steroids and antibiotics Breathing treatments Monitor labs and patient condition Oxygen, titrate to maintain sats greater than 92%. (2) HTN (hypertension) Current Visit: Yes Status: Chronic Assessment and plan: Chronic. Well controlled in inpatient setting. Continue home medications. Qualifiers: Hypertension type: essential hypertension Qualified Code(s): I10 - Essential (primary) hypertension (3) HLD (hyperlipidemia) Current Visit: Yes Status: Acute Assessment and plan: Chronic. Continue home medications. Qualifiers: Hyperlipidemia type: unspecified Qualified Code(s): E78.5 - Hyperlipidemia , unspecified (4) History of stroke Current Visit: Yes Status: Chronic (5) Tobacco abuse Current Visit: Yes Status: Chronic Assessment and plan: We discussed smoking cessation. Patient is currently using a nicotine patch. Will discuss on discharge whether he will take them home. - Time Spent With Patient less than 15 minutes - Subjective Interval history: Patient sitting up in bed, alert and oriented, eating breakfast and watching TV. He is a very pleasant talkative man. He was seen and assessed at about 09 100. He says he began having trouble approximately 4 days ago. He does follow closely with his nurse navigator. Apparently she instructed him to go to urgent care, however he went to the emergency department was admitted. Patient' s lungs sound tight, clear no wheezing or rhonchi or rales heard. Patient is wearing oxygen and maintaining his sats well. He reports having dry skin and is requesting lotion. It is at his bedside. He also states he has not had a bowel movement and I will add Colace to his regimen, as well as Robitussin for his moist sounding nonproductive cough. - Constitutional Vitals: Temp Pulse Resp BP Pulse Ox 98.2 F 88 16 137/76 95 08/27/16 15:08 08/27/16 15:08 08/27/16 15:08 08/27/16 15:08 08/27/16 15:08 General appearance: Present: cooperative, A&O X 3, pleasant, answers questions appropriately - Head Head exam: Present: normal inspection - Eye Eye exam: Present: normal appearance, conjuntiva pink - ENT ENT exam: Present: mucous membranes moist, normal exam, normal external ear exam - Neck Neck exam general surgery: Present: normal inspection. Absent: lymphadenopathy , tenderness - Respiratory Respiratory exam: Present: decreased breath sounds, CTAB. Absent: accessory muscle use, rales, respiratory distress, rhonchi, wheezes - Cardiovascular Cardiovascular exam: Present: RRR, +S1, +S2. Absent: clicks, diastolic murmur, gallop, systolic murmur - GI/Abdominal GI/Abdominal exam: Present: normal bowel sounds, soft. Absent: distended, firm , hepatomegaly, tenderness - Extremities Exam Extremities exam: Present: warm, radial pulses palpable and symetrical. Absent : pedal edema, tenderness - Skin Skin exam: Present: dry, normal color, warm. Absent: rash Internal Medicine: Result - Labs CBC & Chem 7: 08/27/16 03:59 08/27/16 03:59 Labs: Short CBC 08/27/16 Range/Units 03:59 WBC 6.7 (4.3-11.1) K/mcL Hgb 14.2 (12.9-16.9) g/dL Hct 43.7 (37.5-50.1) % Plt Count 172 (140-400) K/mcL Neutrophils # 6.2 (1.6-8.9) K/mcL BMP 08/27/16 03:59 Sodium 139 Potassium 4.4 Chloride 100 Carbon Dioxide 29 BUN 17 Creatinine 0.93 Glucose 132 H Calcium 8.5 L Liver Function 08/27/16 Range/Units 03:59 Total Bilirubin 0.7 (0.2-1.2) mg/dL AST 20 (5-34) Units/L ALT 19 (0-55) Units/L Alkaline Phosphatase 75 (38-126) Units/L Albumin 3.1 L (3.5-5.0) g/dL - ABG Interpretation ABG results: PT/INR, D-dimer PT 12.1 Seconds (9.4-12.1) 08/26/16 15:36 Consult Discharge Plan - Plan
[2016-08-27] MEDS: Furosemide 20 MG TABLET PO SCH (16:54)
[2016-08-27] MEDS: Primidone 50 MG TABLET PO SCH (20:09)
[2016-08-28] MEDS: 0.9 % Sodium Chloride 1,000 ML IVC SCH
[2016-08-28] MEDS: Albuterol 2.5 MG/3 ML NEBULIZER IH SCH ×4 (04:01→16:13)
--- NOTE | 2016-08-28 08:51 | Electrocardiograph Report ---
[place] [address] Test Date: 2016-08-26 Pat Name: Ellis Steven Department: 104 Room: 3B16 Gender: M [employer] Supervisor: VI : 1950 Requested By: [place] Order Number: [id number] Reading MD: Alex Reyes DO Measurements Intervals Tibbie Rate: 61 P: 80 CT: 148 QRS: 63 QRSD: 81 T: 66 QT: 405 QTc: 408 Interpretive Statements SINUS RHYTHM WITH SINUS ARRHYTHMIA INTERPRETATION BASED ON A DEFAULT AGE OF 40 YEARS Electronically Signed On 08-28-2016 8:49:24 EDT by Alex Reyes DO
[2016-08-28] MEDS ORDERED: Cholecalciferol (D-3) 1,000 UNIT TABLET PO SCH (09:00)
[2016-08-28] MEDS ORDERED: predniSONE 10 MG TABLET PO SCH (09:00)
[2016-08-28] MEDS ORDERED: Cyanocobalamin (B-12) 1,000 MCG TABLET PO SCH (09:00)
[2016-08-28] MEDS ORDERED: Aspirin 81 MG TAB.CHEW PO SCH (09:00)
[2016-08-28] MEDS ORDERED: Tiotropium 18 MCG inhalation IH SCH (09:00)
[2016-08-28] MEDS ORDERED: Famotidine 20 MG TABLET PO SCH (09:00)
[2016-08-28] MEDS ORDERED: (Folic Acid [Folic Acid] 0.4 MG) PO SCH (09:00)
[2016-08-28] MEDS: Primidone 50 MG TABLET PO SCH (09:27)
[2016-08-28] MEDS: Doxycycline 100 MG CAPSULE PO SCH (09:27)
[2016-08-28] MEDS: methylPREDNISolone 125 MG/2 ML VIAL IVP SCH ×2 (09:27)
[2016-08-28] MEDS: Furosemide 20 MG TABLET PO SCH (09:27)
[2016-08-28] MEDS: Nicotine 7 MG PATCH.TD24 TD SCH (09:28)
[2016-08-28 15:29] VITALS: BP 134/79
--- NOTE | 2016-08-28 16:09 | Discharge Summary ---
Date of Encounter: 08/28/16 Time of Encounter: 09:55 - Discharge Diagnosis (1) Acute exacerbation of chronic obstructive airways disease Priority: Primary Status: Acute Comments: Patient reports shortness of breath and chest tightness for the last 5 days. Patient states he follows closely with his nurse navigator and will get good follow-up on discharge. He has much better air movement in his lungs today. He is not as tight. He remains diminished but clear. There are no rales, rhonchi, or wheezing. He denies cough today, states that the Robitussin is working for him. I will send home a prescription for this. He is in no respiratory distress progressed and speaks easily in full sentences. He has been weaned off supplemental oxygen. His tach remained within normal limits. He did not pass his 6 minute walk for oxygen qualification. Staff states the patient was holding his breath to decrease his sats, with start breathing again and then say he was short of breath. Staff kept pulse ox on his finger and spoke to him and his sats remained stable and above 95 continuously while he was talking. Patient will go home on a steroid taper and with Robitussin and antibiotics. (2) HTN (hypertension) Priority: Secondary Status: Chronic Comments: Chronic. Continue home medications. Qualifiers: Hypertension type: essential hypertension Qualified Code(s): I10 - Essential (primary) hypertension (3) HLD (hyperlipidemia) Priority: Secondary Status: Chronic Comments: Chronic. Continue home medications. Qualifiers: Hyperlipidemia type: unspecified Qualified Code(s): E78.5 - Hyperlipidemia , unspecified (4) History of stroke Priority: Secondary Status: Chronic (5) Tobacco abuse Priority: Secondary Status: Chronic Comments: Patient has been successfully using a nicotine patch while he was here. I will give patient a prescription to take home with him to aid in his smoking cessation. - Discharge Medications Prescriptions: GuaiFENesin/Dextromethorphan [Robitussin/Dm] 10 ml PO Q6HR PRN #240 udc PRN Reason: Cough Doxycycline 100 mg PO BID #14 capsule Nicotine Patch [Nicoderm] 7 mg TD DAILY #15 patch.td24 predniSONE [PredniSONE] 40 mg PO DAILY #41 tablet Home Medications: Albuterol Neb [Proventil Neb] 2.5 mg IH Q4HR PRN #30 vial.neb 10/20/15 [Rx] Cyanocobalamin (Vitamin B-12) [Vitamin B12] 1,000 mcg PO DAILY 01/25/16 [History ] Lovastatin [Mevacor] 40 mg PO DAILY 01/25/16 [History] Mometasone/Formoterol [Dulera 200 Mcg/5 Mcg Inhaler] 2 puff IH BID 01/25/16 [ History] Potassium Chloride [Klor-Con 10] 20 meq PO DAILY 01/25/16 [History] Albuterol Sulfate [Albuterol Inhaler] 2 puff IH Q4H PRN 03/01/16 [History] Metoprolol [Lopressor] 25 mg PO BID #60 tablet 04/14/16 [Rx] Tiotropium [Spiriva] 18 mcg IH DAILY 04/14/16 [History] Furosemide [Lasix] 20 mg PO DAILY 05/17/16 [History] Aspirin 81 mg PO DAILY #30 tab.chew 05/20/16 [Rx] Acetaminophen [Tylenol] 500 mg PO Q6H PRN 08/26/16 [History] Ergocalciferol (VITAMIN D2) [Vitamin D] 400 unit PO DAILY 08/26/16 [History] Folic Acid 0.4 mg PO DAILY 08/26/16 [History] Lansoprazole [Prevacid] 15 mg PO QAM 08/26/16 [History] Primidone [Mysoline] 50 mg PO BID 08/26/16 [History] predniSONE [PredniSONE] 10 mg PO DAILY 08/26/16 [History] Doxycycline 100 mg PO BID #14 capsule 08/28/16 [Rx] GuaiFENesin/Dextromethorphan [Robitussin/Dm] 10 ml PO Q6HR PRN #240 udc [Rx] Nicotine Patch [Nicoderm] 7 mg TD DAILY #15 patch.td24 08/28/16 [Rx] predniSONE [PredniSONE] 40 mg PO DAILY #41 tablet 08/28/16 [Rx] Allergies/Adverse Reactions: Allergies ibuprofen [From Motrin] Adverse Reaction (Verified 06/11/16 21:48) Gastrointestinal Upset levofloxacin [From Levaquin] Adverse Reaction (Verified 06/11/16 21:48) Weakness Date of admission: 08/26/16 19:44 Primary care physician: Talita Coffey CNP Consults: 08/26/16 20:37 Consult to Nutrition [CONS] Routine Comment: Consulting Provider: NUTRITION Reason for Dietary Consult: MST Score 08/27/16 13:53 Consult to Pickling Solution Maker [CONS] Routine Reason for SW Consult: Patient Nurse Navigator requesting social service Discharging clinician: Almaz Cohen Anticipated date of discharge: 08/28/16 - Patient Status Disposition: Home, Self-Care Condition: Good Functional capacity at discharge: independent ambulation Overall status at discharge: patient is progressing back to baseline - Discharge Instructions Follow Up With: NO,PCP [Non-Partnered Physician] - Forms: ED Satisfaction Letter Additional Instructions: Please take your antibiotic, steroids, Robitussin as directed. I have given you a prescription for NicoDerm patches for smoking cessation Follow up with her primary care provider within the next week to 10 days for a follow-up appointment. Return to the emergency department as needed. Please stay in contact with your nurse navigator. Interval History: Patient presented to the emergency department for all T day history of shortness of breath, dyspnea. Patient admitted for acute exacerbation of COPD. He was requiring supplemental oxygen, he was weaned successfully. He does not qualify for home oxygen. His lung sounds are diminished throughout, there is air movement and there are no rales, wheezing, rhonchi. Patient does not have peripheral edema. He has been treated with steroids antibiotics, breathing treatments. He will continue this treatment at home. He remains in good contact with his nurse navigator, I have encouraged him to reach out to her for assistance. I also recommend he follow-up with his primary care provider for hospital follow-up visit. He is agreeable. We discussed smoking cessation and he has been successfully using a nicotine patch but he has been in the hospital. I sent him a prescription for these. He will do a long steroid taper, as well as doxycycline for 7 days. He is in no distress. He is able to walk in the hallways and speak with staff without any difficulty. He speaks easily in full sentences. His vital signs and labs are within normal limits. He has adequate resources upon discharge for assistance with COPD. He says he is going to call a cab for transportation , he says he has money to pay for it. He says he has neighbors who help with transportation issues. He is a very pleasant, well spoken man. He is ready for discharge. Hospital course: Mr. Steven is a 65 year old male Time spent discussing smoking cessation with patient: 3 to 10 minutes - Time Spent with Patient Total time spent providing and/or coordinating discharge services: Less than 30 minutes - Constitutional Vitals: Temp Pulse Resp BP Pulse Ox 97.3 F L 61 18 134/79 95 08/28/16 15:29 08/28/16 15:29 08/28/16 15:29 08/28/16 15:29 08/28/16 16:02 General appearance: Present: cooperative, A&O X 3, pleasant, no acute distress, answers questions appropriately - Head Head exam: Present: normal inspection - Eye Eye exam: Present: normal appearance, conjuntiva pink - ENT ENT exam: Present: mucous membranes moist, normal exam, normal external ear exam - Neck Neck exam general surgery: Present: normal inspection. Absent: lymphadenopathy , tenderness - Respiratory Respiratory exam: Present: decreased breath sounds, CTAB. Absent: rales, respiratory distress, rhonchi, stridor, wheezes - Cardiovascular Cardiovascular exam: Present: RRR, +S1, +S2. Absent: clicks, diastolic murmur, gallop, systolic murmur - GI/Abdominal GI/Abdominal exam: Present: soft. Absent: distended, hepatomegaly, tenderness - Extremities Exam Extremities exam: Present: warm, radial pulses palpable and symetrical. Absent : pedal edema, tenderness - Neurological Exam Neurological exam: Present: alert, oriented X3, no focal deficits, strengths equal and symetr throughout. Absent: altered, facial droop, speech deficit
[2016-08-29] MEDS ORDERED: predniSONE 20 MG TABLET PO SCH (09:00)
== END 2016-08-28 17:17 | disposition home or self-care (01) | DRG 192 ==
LOC: EMEROO 14:17 → 3BNU 14:17
PROVIDERS: ADMIT Registered Nurse; ATTEND Registered Nurse

== ENCOUNTER 2016-10-03 20:10 | Observation (INO) ==
[2016-10-03] MEDS ORDERED: Ipratropium/Albuterol Neb 3 ML IH ONE (20:14)
[2016-10-03] MEDS ORDERED: methylPREDNISolone 125 MG/2 ML VIAL IVP ONE (20:14)
--- NOTE | 2016-10-03 20:34 | Emergency Department Note ---
Disposition Clinical Impression: COPD exacerbation Disposition: Admitted As Inpatient Condition: Fair SOB HPI - General Chief Complaint: ED Shortness of Breath/Dyspnea Stated Complaint: "chapo" Time Seen by Provider: 10/03/16 20:14 Source: patient, EMS Mode of arrival: EMS Limitations: no limitations Nursing Notes Reviewed: Yes Vital Signs Reviewed: Yes - History of Present Illness Patient is a 65-year-old male with a history of COPD presents to the emergency department via EMS for shortness of breath. He states that this began Tuesday and progressively gotten worse. He has tried to use his inhalers and nebulizers at home. He states that he is having to use them more frequently and went to urgent care today. Patient says his oxygen saturation is 94% resting and 83% with exertion at home. Patient denies having any fever or chills. He states that he tries to cough to clear his lungs but it is nonproductive. Patient denies ever having a based on BiPAP or intubated. He states that moving or exerting himself seems to make his shortness of breath worse. - Related Data Home Medications Medication Instructions Recorded Confirmed Cyanocobalamin (Vitamin B-12) 1,000 mcg PO DAILY 01/25/16 08/26/16 [Vitamin B12] Lovastatin [Mevacor] 40 mg PO DAILY 01/25/16 08/26/16 Mometasone/Formoterol [Dulera 200 2 puff IH BID 01/25/16 08/26/16 Mcg/5 Mcg Inhaler] Potassium Chloride [Klor-Con 10] 20 meq PO DAILY 01/25/16 08/26/16 Albuterol Sulfate [Albuterol 2 puff IH Q4H PRN 03/01/16 08/26/16 Inhaler] Tiotropium [Spiriva] 18 mcg IH DAILY 04/14/16 08/26/16 Furosemide [Lasix] 20 mg PO DAILY 05/17/16 08/26/16 Acetaminophen [Tylenol] 500 mg PO Q6H PRN 08/26/16 08/26/16 Ergocalciferol (VITAMIN D2) 400 unit PO DAILY 08/26/16 08/26/16 [Vitamin D] Folic Acid 0.4 mg PO DAILY 08/26/16 08/26/16 Lansoprazole [Prevacid] 15 mg PO QAM 08/26/16 08/26/16 Primidone [Mysoline] 50 mg PO BID 08/26/16 08/26/16 predniSONE [PredniSONE] 10 mg PO DAILY 08/26/16 08/26/16 Previous Rx's Medication Instructions Recorded Albuterol Neb [Proventil Neb] 2.5 mg IH Q4HR PRN #30 vial.neb 10/20/15 Metoprolol [Lopressor] 25 mg PO BID #60 tablet 04/14/16 Aspirin 81 mg PO DAILY #30 tab.chew 05/20/16 Doxycycline 100 mg PO BID #14 capsule 08/28/16 GuaiFENesin/Dextromethorphan 10 ml PO Q6HR PRN #240 udc 08/28/16 [Robitussin/Dm] Nicotine Patch [Nicoderm] 7 mg TD DAILY #15 patch.td24 08/28/16 Docusate Sodium [Colace] 100 mg PO BID #60 capsule 09/12/16 Polyethylene Glycol 3350 [MiraLAX 1 scoop PO BID 7 Days 09/12/16 Powder Bulk 17.9 Oz] Allergies Allergy/AdvReac Type Severity Reaction Status Date / Time ibuprofen [From Motrin] AdvReac Gastrointestinal Verified 06/11/16 21:48 Upset levofloxacin [From Levaquin] AdvReac Weakness Verified 06/11/16 21:48 All systems ED: reviewed and negative except as stated. Constitutional: Denies: fever, chills Cardiovascular: Reports: other (Chest tightness) Respiratory: Reports: dyspnea Gastrointestinal: Denies: abdominal pain, nausea Genitourinary: Denies: urgency, dysuria Past Medical History - Past Medical History Medical history: Reports: COPD Surgical history: Reports: non-contributory, other Psychiatric history: Reports: anxiety, depression - Social History Smoking Status: Unknown if ever smoked Smokeless Tobacco Status: No Alcohol use: Reports: none Drug use: Reports: none Physical Exam - General Limitations: no limitations General appearance: alert - Head Head exam: atraumatic, normocephalic - Neck Neck exam: Present: normal inspection, full ROM, trachea midline - Chest Chest inspection: Present: symmetric chest wall rise - Respiratory Respiratory exam: Present: other (Patient has increased respiratory rate with decreased breath sounds bilaterally.) - Cardiovascular Cardiovascular exam: Present: regular rate, normal rhythm, normal heart sounds, +S1, +S2 - Abdominal Exam Abdominal exam: Present: soft, tenderness Abdominal tenderness: Present: RUQ, epigastrium - Extremities Exam Extremities exam: Present: other (Mild swelling bilateral lower extremities) - Neurological Exam Neurological exam: Present: alert, oriented X3 - Psychiatric Psychiatric exam: Present: normal affect, normal mood - Skin Skin exam: Present: other (Patient has multiple bruising and skin lesions on his arms.) Course Vital Signs Temperature 98.3 F 10/03/16 20:15 Pulse Rate 69 10/03/16 20:15 Respiratory Rate 18 10/03/16 20:15 Blood Pressure 147/107 10/03/16 20:15 O2 Sat by Pulse Oximetry 95 10/03/16 20:15 Temperature 98.3 F 10/03/16 20:15 Pulse Rate 68 10/03/16 22:57 Respiratory Rate 16 10/03/16 22:57 Blood Pressure 129/76 10/03/16 22:57 O2 Sat by Pulse Oximetry 97 10/03/16 22:57 Oxygen Delivery Oxygen Delivery Nasal Cannula Shortness of Breath/Dyspnea - [facility] Narrative Medical decision making narrative: Patient 65-year-old male presents to the emergency room for shortness of breath. D-Dimer was elevated at 3947 so we have ordered a CTA of the chest to evaluate for a pulmonary embolism. CT of the chest was negative for pulmonary embolism but shows extensive emphysema. Due to the patient requiring oxygen to maintain his oxygen saturations we will admit the patient the hospital. I spoke with the hospitalist Dr. Quinn at 11:25pm and he has accepted the patient to their service. - Medical Records Medical records reviewed: Yes I reviewed the patient's medical records. - Lab Data Lab results reviewed: Yes I reviewed the patient's lab results. Result diagrams: 10/03/16 20:16 10/03/16 20:16 Lab Results 10/03/16 10/03/16 10/03/16 Range/Units 20:16 20:16 20:16 WBC 5.4 (4.3-11.1) K/mcL RBC 4.57 (4.19-5.50) M/mcL Hgb 14.2 (12.9-16.9) g/dL Hct 45.1 (37.5-50.1) % MCV 98.7 (83.0-100.0) fL MCH 31.1 (28.0-33.3) pg MCHC 31.5 L (31.6-35.5) g/dL RDW 13.2 (11.5-14.5) % Plt Count 235 (140-400) K/mcL MPV 9.8 (9.4-12.4) fL Immature Gran % 0.2 (0-4) % Seg Neutrophils % 74.0 % Lymphocytes % 14.2 % Monocytes % 11.0 % Eosinophils % 0.2 % Basophils % 0.4 % Neutrophils # 4.0 (1.6-8.9) K/mcL Lymphocytes # 0.8 (0.6-4.6) K/mcL Monocytes # 0.6 (0.0-1.3) K/mcL Eosinophils # 0.0 (0.0-0.6) K/mcL Basophils # 0.0 (0.0-0.2) K/mcL Immature Plt Fraction 3.7 (1.1-6.1) % D-Dimer (0-500) ng/mLFEU Sodium 145 (136-145) mEq/L Potassium 4.2 (3.5-4.5) mEq/L Chloride 107 (98-109) mEq/L Carbon Dioxide 34 H (19-29) mEq/L BUN 13 (8-26) mg/dL Creatinine 0.95 (0.72-1.25) mg/dL Est GFR ( Amer) > 60 (> 60) Est GFR (Non-Af Amer) > 60 (> 60) BUN/Creatinine Ratio 14 (6-26) Glucose 118 H (70-99) mg/dL Calculated Osmolality 301 H (280-300) Lactic Acid (0.5-2.2) mmol/L Calcium 8.7 (8.6-10.8) mg/dL Total Bilirubin 0.4 (0.2-1.2) mg/dL Direct Bilirubin 0.2 (0.0-0.5) mg/dL Indirect Bilirubin 0.2 (0.0-1.2) mg/dL AST 20 (5-34) Units/L ALT 16 (0-55) Units/L Alkaline Phosphatase 85 (38-126) Units/L Troponin I 0.02 (0-0.03) ng/mL B-Natriuretic Peptide (0-100) pg/mL Serum Total Protein 6.2 (6.0-8.3) g/dL Albumin 3.1 L (3.5-5.0) g/dL Globulin 3.1 (2.4-3.5) g/dL Albumin/Globulin Ratio 1.0 L (1.1-2.2) 10/03/16 10/03/16 10/03/16 Range/Units 20:16 20:16 20:36 WBC (4.3-11.1) K/mcL RBC (4.19-5.50) M/mcL Hgb (12.9-16.9) g/dL Hct (37.5-50.1) % MCV (83.0-100.0) fL MCH (28.0-33.3) pg MCHC (31.6-35.5) g/dL RDW (11.5-14.5) % Plt Count (140-400) K/mcL MPV (9.4-12.4) fL Immature Gran % (0-4) % Seg Neutrophils % % Lymphocytes % % Monocytes % % Eosinophils % % Basophils % % Neutrophils # (1.6-8.9) K/mcL Lymphocytes # (0.6-4.6) K/mcL Monocytes # (0.0-1.3) K/mcL Eosinophils # (0.0-0.6) K/mcL Basophils # (0.0-0.2) K/mcL Immature Plt Fraction (1.1-6.1) % D-Dimer 3947 H (0-500) ng/mLFEU Sodium (136-145) mEq/L Potassium (3.5-4.5) mEq/L Chloride (98-109) mEq/L Carbon Dioxide (19-29) mEq/L BUN (8-26) mg/dL Creatinine (0.72-1.25) mg/dL Est GFR ( Amer) (> 60) Est GFR (Non-Af Amer) (> 60) BUN/Creatinine Ratio (6-26) Glucose (70-99) mg/dL Calculated Osmolality (280-300) Lactic Acid 0.8 (0.5-2.2) mmol/L Calcium (8.6-10.8) mg/dL Total Bilirubin (0.2-1.2) mg/dL Direct Bilirubin (0.0-0.5) mg/dL Indirect Bilirubin (0.0-1.2) mg/dL AST (5-34) Units/L ALT (0-55) Units/L Alkaline Phosphatase (38-126) Units/L Troponin I (0-0.03) ng/mL B-Natriuretic Peptide 244 H (0-100) pg/mL Serum Total Protein (6.0-8.3) g/dL Albumin (3.5-5.0) g/dL Globulin (2.4-3.5) g/dL Albumin/Globulin Ratio (1.1-2.2) - Radiology Data Radiology results reviewed: Yes I reviewed the patient's radiology results. Chest X-Ray 10/03/16 20:25 IMPRESSION: No acute process. D/ / Alex Tan MD / Alex Tan MD Interpreting Provider: Alex Tan MD Chest CTA 10/03/16 20:59 IMPRESSION: No evidence of pulmonary embolus. Severe emphysema. Unchanged pulmonary nodules measuring up to 6 mm since 2016. RECOMMENDATIONS: Fleischner Society guidelines for follow-up and management of incidentally detected pulmonary nodules: Multiple Solid Nodules: Nodule size equals 6-8 mm In a low-risk patient, CT at 3-6 months, then consider CT at 18-24 months. In a high-risk patient, CT at 3-6 months, then CT at 18-24 months. D/ / Skylar Rai MD / Skylar Rai MD Interpreting Provider: Skylar Rai MD - EKG Data EKG attestation: Yes I reviewed and interpreted this EKG. EKG results narrative: EKG shows sinus rhythm at a rate of 65 bpm, MD interval 145, QRS duration of 74 , QTC 394 with a normal axis. No ischemic changes noted on this EKG. Attestation Statement - Attestation Attestation: I personally interviewed and examined this patient and my medical decision- making was reviewed with the ED Resident Physician, Dr. Mercado. I agree with the documented findings, disposition and treatment plan as described except to the extent set forth below. Patient is a 65-year-old white male with a history of COPD who comes in today with gradually worsening shortness of breath and nonproductive cough over the past 24-48 hours. Patient denies any fevers or chills, no chest pain pressure or heaviness, no production of cough, no hemoptysis. No posttussive emesis. I agree patient's physical exam findings as documented. Patient had some mild improvement following serial do nebs and IV steroids. Portal chest x-ray was unremarkable. Labs revealed a significantly elevated d- dimer cepacia did undergo CTA of the chest which shows severe emphysema but no evidence of PE or infiltrate. He should still requiring supplemental oxygen which he is not currently on at home. The patient would benefit from hospitalization and continued pulmonary therapy. Patient was accepted by the hospitalist for further evaluation and management.
[2016-10-03 20:37] LABS: Basophils % 0.4 %; Eosinophils % 0.2 %; Hematocrit 45.1 % (37.5-50.1); Hemoglobin 14.2 g/dL (12.9-16.9); Immature Granulocytes % 0.2 % (0-4); Immature Platelets 3.7 % (1.1-6.1); Lymphocytes # 0.8 K/mcL (0.6-4.6); Lymphocytes % 14.2 %; Mean Corpuscular HGB Conc 31.5 g/dL (31.6-35.5); Mean Corpuscular Hemoglobin 31.1 pg (28.0-33.3); Mean Corpuscular Volume 98.7 fL (83.0-100.0); Mean Platelet Volume 9.8 fL (9.4-12.4); Monocytes # 0.6 K/mcL (0.0-1.3); Platelet Count 235 K/mcL (140-400); Red Blood Count 4.57 M/mcL (4.19-5.50); Red Cell Distribution Width 13.2 % (11.5-14.5)
[2016-10-03 20:46] LABS: Alanine Aminotransferase 16 Units/L (0-55); Albumin 3.1 g/dL (3.5-5.0); Alkaline Phosphatase 85 Units/L (38-126); Aspartate Amino Transferase 20 Units/L (5-34); BUN/Creatinine Ratio 14 (6-26); Bilirubin,Direct 0.2 mg/dL (0.0-0.5); Bilirubin,Indirect 0.2 mg/dL (0.0-1.2); Bilirubin,Total 0.4 mg/dL (0.2-1.2); Blood Urea Nitrogen 13 mg/dL (8-26); Calcium 8.7 mg/dL (8.6-10.8); Carbon Dioxide 34 mEq/L (19-29); Chloride 107 mEq/L (98-109); Globulin 3.1 g/dL (2.4-3.5); Glucose 118 mg/dL (70-99); Osmolality,Calculated 301 (280-300); Potassium 4.2 mEq/L (3.5-4.5); Sodium 145 mEq/L (136-145); Total Protein 6.2 g/dL (6.0-8.3); eGFR For African Americans > 60 (> 60); eGFR For Non-African Americans > 60 (> 60)
[2016-10-03] MEDS ORDERED: Albuterol 2.5 MG/3 ML NEBULIZER IH ONE (21:35)
--- NOTE | 2016-10-04 00:13 | Internal Med History&Physical ---
Date of Encounter: 10/04/16 Time of Encounter: 00:10 Assessment and Plan (1) COPD exacerbation Current visit: Yes Status: Acute Support with breathing treatments, supplemental oxygen, cough suppressants/ expectorants He did receive 125 mg of Solumedrol in ED, will continue 40 mg q8hr Start Zithromax IV and continue home Dulera As stated in HPI, patient does not want fpc oxygen at home (2) HTN (hypertension) Current visit: No Status: Chronic Vitals stable since admission Continue home Lopressor Qualifiers: Hypertension type: essential hypertension Qualified Code(s): I10 - Essential (primary) hypertension (3) History of stroke Current visit: No Status: Chronic Continue home ASA, Statin, BB (4) Tobacco abuse Current visit: No Status: Chronic Nicotine patch (5) DVT prophylaxis Current visit: No Status: Acute Heparin 5000 units BID Internal Medicine - H&P: HPI Chief complaint: shortness of breath Admitted From: Home Plans for Post Hospital Care: Home History of present illness: Mr. Steven is a 65 year old male who presents to emergency department with shortness of breath that started Tuesday. Patient states that he woke up on Tuesday and was more short of breath in usual, given his emphysema. He has a pulse oximetry on home and it read in the low 90s which is slightly lower than average. When he tried to exert himself, his shortness of breath worsened and his O2 fell in the 80s. He states the symptoms are getting worse since then and his inhalers have not been as effective as a normally are. He has also had a nonproductive cough during that time but was able to cough up some clear sputum while in the ED. He also complains of chest pain with inspiration. He denies any fevers, chills, nausea, vomiting, diarrhea. He was at home alone and is not on oxygen, and does not want to rely on it in the future either. Past Med Surg Social Fam HX - Past Medical History Medical history: COPD Psychiatric history: anxiety, depression - Past Surgical History Surgical History: non-contributory, other - Social History Smoking Status: Unknown if ever smoked Smokeless Tobacco Status: No Alcohol use: none Drug use: none - Family History Mother Adopted: No Family Member Ethnicity: Non- Living Status: Hx Family Cardiac Disorders: No Hx Family Respiratory Disorders: No Hx Family Cancer: Yes (lung cancer) Hx Family GI Disorders: No Hx Family Endocrine Disorder: No Hx Family Neuromuscular Disorders: No Hx Family Neurologic Disorders: No Hx Family HEENT Disorders: No Hx Family Autoimmune Disorders: No Father Living Status: Hx Family Respiratory Disorders: Yes (COPD) Internal Medicine - H&P: Meds Albuterol Neb [Proventil Neb] 2.5 mg IH Q4HR PRN #30 vial.neb 10/20/15 [Rx] Cyanocobalamin (Vitamin B-12) [Vitamin B12] 1,000 mcg PO DAILY 01/25/16 [History ] Lovastatin [Mevacor] 40 mg PO DAILY 01/25/16 [History] Mometasone/Formoterol [Dulera 200 Mcg/5 Mcg Inhaler] 2 puff IH BID 01/25/16 [ History] Potassium Chloride [Klor-Con 10] 20 meq PO DAILY 01/25/16 [History] Albuterol Sulfate [Albuterol Inhaler] 2 puff IH Q4H PRN 03/01/16 [History] Metoprolol [Lopressor] 25 mg PO BID #60 tablet 04/14/16 [Rx] Tiotropium [Spiriva] 18 mcg IH DAILY 04/14/16 [History] Furosemide [Lasix] 20 mg PO DAILY 05/17/16 [History] Aspirin 81 mg PO DAILY #30 tab.chew 05/20/16 [Rx] Acetaminophen [Tylenol] 500 mg PO Q6H PRN 08/26/16 [History] Ergocalciferol (VITAMIN D2) [Vitamin D] 400 unit PO DAILY 08/26/16 [History] Folic Acid 0.4 mg PO DAILY 08/26/16 [History] Lansoprazole [Prevacid] 15 mg PO QAM 08/26/16 [History] Primidone [Mysoline] 50 mg PO BID 08/26/16 [History] predniSONE [PredniSONE] 10 mg PO DAILY 08/26/16 [History] Doxycycline 100 mg PO BID #14 capsule 08/28/16 [Rx] GuaiFENesin/Dextromethorphan [Robitussin/Dm] 10 ml PO Q6HR PRN #240 udc [Rx] Nicotine Patch [Nicoderm] 7 mg TD DAILY #15 patch.td24 08/28/16 [Rx] Docusate Sodium [Colace] 100 mg PO BID #60 capsule 09/12/16 [Rx] Polyethylene Glycol 3350 [MiraLAX Powder Bulk 17.9 Oz] 1 scoop PO BID 7 Days [Rx] Allergies ibuprofen [From Motrin] Adverse Reaction (Verified 06/11/16 21:48) Gastrointestinal Upset levofloxacin [From Levaquin] Adverse Reaction (Verified 06/11/16 21:48) Weakness All Systems PM: A 10-system review of systems was performed and is negative for pertinent findings except as documented above in the HPI. - Constitutional Constitutional: no chills, no fever(s), no night sweats - EENT Eyes: no change in vision, no discharge, no pain, no photophobia Ears: no ear discharge, no ear pain, no tinnitus Nose, mouth and throat: no dysphagia, no nasal discharge, no neck pain, no sore throat - Cardiovascular Cardiovascular ROS IM: no chest pain, no diaphoresis, no dyspnea, no lightheadedness, no palpitations, no syncope - Respiratory Respiratory: dyspnea, dyspnea on exertion, pain on inspiration, change in phlegm color, no cough, no wheezing, no excessive phlegm production - Gastrointestinal Gastrointestinal: constipation, no abdominal pain, no diarrhea, no hematemesis, no hematochezia, no melena, no nausea, no vomiting - Musculoskeletal Musculoskeletal ROS IM: no numbness, no tingling - Integumentary Integumentary IM: no rash, no unusual bruising - Neurological Neurological ROS: no confusion, no convulsions, no focal weakness, no numbness, no tingling, no tremor(s) - Hematologic/Lymphatic Hematologic/Lymphatic: no easy bruising - Constitutional Vitals: Temp Pulse Resp BP Pulse Ox 98.3 F 68 18 137/80 97 10/03/16 20:15 10/03/16 22:57 10/03/16 23:51 10/03/16 23:51 10/03/16 22:57 General appearance: Present: cooperative, pleasant, no acute distress, answers questions appropriately - Head Head exam: Present: atraumatic, normocephalic - Eye Eye exam: Present: PERRL, conjuntiva pink, sclera anicteric - Neck Neck exam general surgery: Present: supple, trachea midline. Absent: lymphadenopathy - Respiratory Respiratory exam: Present: decreased breath sounds. Absent: accessory muscle use, rales, rhonchi, wheezes - Cardiovascular Cardiovascular exam: Present: RRR, +S1, +S2. Absent: diastolic murmur, gallop, rubs, systolic murmur - GI/Abdominal GI/Abdominal exam: Present: normal bowel sounds, soft, no peritoneal signs. Absent: distended, tenderness - Extremities Exam Extremities exam: Present: pedal edema (trace pitting), warm, radial pulses palpable and symetrical. Absent: calf tenderness, cyanotic - Neurological Exam Neurological exam: Present: alert, no focal deficits. Absent: facial droop, speech deficit - Skin Skin exam: Present: dry, intact Internal Med - H&P Results - Labs CBC & Chem 7: 10/03/16 20:16 10/03/16 20:16
[2016-10-04] MEDS ORDERED: Ondansetron ODT 4 MG TAB.RAPDIS SL PRN (00:39)
[2016-10-04] MEDS ORDERED: Naloxone 0.4 MG/ML INJ IVP PRN (00:39)
[2016-10-04] MEDS ORDERED: Acetaminophen 325 MG TABLET PO PRN (00:39)
[2016-10-04] MEDS ORDERED: Albuterol 2.5 MG/3 ML NEBULIZER IH PRN (00:44)
[2016-10-04] MEDS ORDERED: Azithromycin 500 MG in D5% in Water 250 ML IVPB SCH (01:00)
[2016-10-04] MEDS ORDERED: Ipratropium/Albuterol Neb 3 ML IH SCH (04:00)
[2016-10-04] MEDS: Ipratropium/Albuterol Neb 3 ML IH SCH ×4 (04:58→21:45)
[2016-10-04 05:41] LABS: Hematocrit 44.1 % (37.5-50.1); Hemoglobin 13.8 g/dL (12.9-16.9); Immature Granulocytes % 0.2 % (0-4); Lymphocytes # 0.3 K/mcL (0.6-4.6); Lymphocytes % 6.3 %; Mean Corpuscular HGB Conc 31.3 g/dL (31.6-35.5); Mean Corpuscular Hemoglobin 30.9 pg (28.0-33.3); Mean Corpuscular Volume 98.7 fL (83.0-100.0); Mean Platelet Volume 9.9 fL (9.4-12.4); Monocytes # 0.1 K/mcL (0.0-1.3); Monocytes % 2.7 %; Neutrophils # 4.3 K/mcL (1.6-8.9); Platelet Count 199 K/mcL (140-400); Red Blood Count 4.47 M/mcL (4.19-5.50); Red Cell Distribution Width 13.2 % (11.5-14.5); Segmented Neutrophils % 90.8 %
[2016-10-04] MEDS: *HR* Heparin 5,000 UNIT/ML VIAL SQ SCH ×2 (05:48→18:09)
[2016-10-04 05:55] LABS: BUN/Creatinine Ratio 14 (6-26); Blood Urea Nitrogen 13 mg/dL (8-26); Calcium 8.5 mg/dL (8.6-10.8); Carbon Dioxide 34 mEq/L (19-29); Chloride 102 mEq/L (98-109); Glucose 131 mg/dL (70-99); Osmolality,Calculated 294 (280-300); Sodium 141 mEq/L (136-145); eGFR For African Americans > 60 (> 60); eGFR For Non-African Americans > 60 (> 60)
[2016-10-04] MEDS: Aspirin 81 MG TAB.CHEW PO SCH (08:21)
[2016-10-04] MEDS: Primidone 50 MG TABLET PO SCH ×2 (08:21→21:54)
[2016-10-04] MEDS: Nicotine 7 MG PATCH.TD24 TD SCH (08:21)
[2016-10-04] MEDS: MethylPREDNISolone 40 MG/ML VIAL IVP SCH ×2 (08:21→15:30)
[2016-10-04] MEDS: Tiotropium 18 MCG inhalation IH SCH (11:10)
--- NOTE | 2016-10-04 12:46 | Event Note ---
Date of Encounter: 10/04/16 Time of Encounter: 10:00 Patient seen and examined. On examination, patient sitting upright in bed. Patient alert and oriented 3 and quite verbose. He denies pain at this time. He states his shortness of breath is improving. Chest x-ray negative. Chest CTA negative for acute processes. He is currently on 2 L per nasal cannula continuously. He does not use oxygen at home and at this point, he is adamantly refusing to be on oxygen at home. He does however continue to smoke. He states that he smokes a pack of cigarette type cigars with a filter every 3 -4 days. Patient justifies continuing to smoke because he states he does not inhale very deeply and he states that after he smokes, that he is able to cough up all of his phlegm. He states that he has tried Mucinex for this but it does not work as well as his cigars do. He was counseled at length regarding progression of his COPD with continued cigar abuse but he continues to justify it as an expectorant and because he does not inhale very deeply. He did not want to discuss smoking cessation and Justifying smoking. On examination, patient with mildly increased work of breathing. Aeration is poor with diffuse expiratory wheezing present throughout. If he continues to smoke, he was informed that he will likely need oxygen at home in the near future which is something he is trying to avoid. Patient also stating that he will now refused to take azithromycin. Patient has thin skin to his posterior forearms that are slightly ecchymotic and he blames this on azithromycin. He states he does not want it. He also has an adverse reaction listed on levofloxacin, will try him on PO Doxycycline. He is endorsing a regular diet. We will continue to wean his oxygen as he tolerates and continue treatment for COPD exacerbation. ITS Impressions Chest X-Ray 10/03/16 20:25 IMPRESSION: No acute process. D/ / Alex Tan MD / Alex Tan MD Interpreting Provider: Alex Tan MD Chest CTA 10/03/16 20:59 IMPRESSION: No evidence of pulmonary embolus. Severe emphysema. Unchanged pulmonary nodules measuring up to 6 mm since 2016. RECOMMENDATIONS: Fleischner Society guidelines for follow-up and management of incidentally detected pulmonary nodules: Multiple Solid Nodules: Nodule size equals 6-8 mm In a low-risk patient, CT at 3-6 months, then consider CT at 18-24 months. In a high-risk patient, CT at 3-6 months, then CT at 18-24 months. D/ / Skylar Rai MD / Skylar Rai MD Interpreting Provider: Skylar Rai MD
[2016-10-04] MEDS ORDERED: Mag Hydrox/Al Hydrox/Simeth 30 ML UDC PO PRN (14:30)
[2016-10-04] MEDS: Doxycycline 100 MG CAPSULE PO SCH (21:54)
[2016-10-05] MEDS: MethylPREDNISolone 40 MG/ML VIAL IVP SCH ×3 (00:11→17:33)
[2016-10-05] MEDS: Ipratropium/Albuterol Neb 3 ML IH SCH ×4 (04:01→22:24)
--- NOTE | 2016-10-05 06:16 | Electrocardiograph Report ---
[place] [id number] Test Date: 2016-10-03 Pat Name: Ellis Steven Department: 102 Room: 3B Gender: M Cage Manager: Isrrael : 1950 Requested By: Victorino Mercado Order Number: [id number] Reading MD: Phu Howard MD Measurements Intervals [place] Rate: 65 P: 76 MT: 145 QRS: 70 QRSD: 74 T: 72 QT: 382 QTc: 394 Interpretive Statements SINUS RHYTHM LOW QRS VOLTAGE IN PRECORDIAL LEADS Electronically Signed On 10-05-2016 6:14:43 EDT by Phu Hoawrd MD
[2016-10-05] MEDS: *HR* Heparin 5,000 UNIT/ML VIAL SQ SCH ×2 (06:57→17:38)
[2016-10-05] MEDS: Primidone 50 MG TABLET PO SCH ×2 (08:27→20:08)
[2016-10-05] MEDS: Aspirin 81 MG TAB.CHEW PO SCH (08:27)
[2016-10-05] MEDS: Doxycycline 100 MG CAPSULE PO SCH ×2 (08:27→20:08)
[2016-10-05] MEDS: Tiotropium 18 MCG inhalation IH SCH (08:27)
[2016-10-05] MEDS: Nicotine 7 MG PATCH.TD24 TD SCH (08:28)
--- NOTE | 2016-10-05 16:21 | Internal Med Progress Note ---
Date of Encounter: 10/05/16 Time of Encounter: 09:50 - Assessment and plan (1) Acute exacerbation of chronic obstructive airways disease Current Visit: No Status: Acute Assessment and plan: Acute exacerbation. Continue breathing treatments, oxygen, Mucinex. Continue Solu-Medrol 40 mg q8h Zithromax 500 mg IV daily Continue Dulera home dose (2) Hypertension Current Visit: No Status: Chronic Assessment and plan: Stable. Chronic. Continue home medication. Qualifiers: Hypertension type: essential hypertension Qualified Code(s): I10 - Essential (primary) hypertension (3) Tobacco abuse Current Visit: No Status: Chronic Assessment and plan: Patient using nicotine patch. We will continue to school guidance counselor on smoking cessation (4) DVT prophylaxis Current Visit: No Status: Acute Assessment and plan: Subcutaneous heparin daily. - Time Spent With Patient less than 15 minutes - Subjective Interval history: Patient was seen and assessed at about 950 this morning. He is sitting up in his chair, watching TV. He is alert awake, oriented, engaging. He appears to have some anxiety about his pulse ox. He has his own portable pulse ox and he monitors his pulse ox frequently. Patient alerts primary nurse to the fact that even when he is on oxygen, his sats decrease into the 60s when he is up moving around his room. He is in no distress, his lungs are diminished with some faint wheezing heard. He is wearing supplemental oxygen. His no peripheral edema. Will continue current treatment plan and plan to discharge tomorrow. - Constitutional Vitals: Temp Pulse Resp BP Pulse Ox 97.9 F 56 18 135/75 98 10/05/16 16:12 10/05/16 16:12 10/05/16 16:12 10/05/16 16:12 10/05/16 16:12 General appearance: Present: cooperative, pleasant, no acute distress, answers questions appropriately - Head Head exam: Present: normal inspection - Eye Eye exam: Present: normal appearance, conjuntiva pink - ENT ENT exam: Present: mucous membranes moist, normal exam, normal external ear exam - Neck Neck exam general surgery: Present: normal inspection. Absent: lymphadenopathy , tenderness - Respiratory Respiratory exam: Present: decreased breath sounds, CTAB, wheezes. Absent: chest wall tenderness, prolonged expiratory phase, rales, respiratory distress, rhonchi, stridor, tachypnea - Cardiovascular Cardiovascular exam: Present: RRR, +S1, +S2. Absent: clicks, diastolic murmur, gallop, systolic murmur - GI/Abdominal GI/Abdominal exam: Present: normal bowel sounds, soft. Absent: hepatomegaly, tenderness - Extremities Exam Extremities exam: Present: normal capillary refill, warm, radial pulses palpable and symetrical. Absent: pedal edema, tenderness - Neurological Exam Neurological exam: Present: alert, oriented X3, no focal deficits. Absent: facial droop, speech deficit - Skin Skin exam: Present: dry, intact, normal color, rash, warm Internal Medicine: Result - Labs CBC & Chem 7: 10/04/16 05:13 10/04/16 05:13 - ABG Interpretation ABG results: PT/INR, D-dimer D-Dimer 3947 ng/mLFEU (0-500) H 10/03/16 20:16 Consult Discharge Plan - Plan Referrals: Talita Coffey, [employer]ORD[employer] [Primary Care Provider] -
[2016-10-06] MEDS: MethylPREDNISolone 40 MG/ML VIAL IVP SCH ×3 (00:35→18:25)
[2016-10-06] MEDS: Ipratropium/Albuterol Neb 3 ML IH SCH ×3 (04:18→15:30)
[2016-10-06] MEDS: *HR* Heparin 5,000 UNIT/ML VIAL SQ SCH ×2 (05:41→18:25)
[2016-10-06] MEDS: Primidone 50 MG TABLET PO SCH (09:00)
[2016-10-06] MEDS: Doxycycline 100 MG CAPSULE PO SCH (09:00)
[2016-10-06] MEDS: Aspirin 81 MG TAB.CHEW PO SCH (09:00)
[2016-10-06] MEDS: Nicotine 7 MG PATCH.TD24 TD SCH (09:01)
[2016-10-06] MEDS: Tiotropium 18 MCG inhalation IH SCH (10:36)
--- NOTE | 2016-10-06 15:05 | Discharge Summary ---
Date of Encounter: 10/06/16 Time of Encounter: 09:40 - Discharge Diagnosis (1) Acute exacerbation of chronic obstructive airways disease Priority: Primary Status: Acute Comments: Acute exacerbation. Patient has been treated with steroids and antibiotics. He will continue his inhalers and home medications. He will be discharged with antibiotics and steroid taper. He also qualifies for home oxygen during this visit. Initially he refused to try to qualify, the qualify for 2 L. Lungs are clear diminished with faint wheezing heard. Right base. Patient will need to follow-up for pulmonary nodules with primary care physician for repeat CT in 3-6 months. Chest X-Ray 10/03/16 20:25 IMPRESSION: No acute process. D/ / Alex Tan MD / Alex Tan MD Interpreting Provider: Alex Tan MD Chest CTA 10/03/16 20:59 IMPRESSION: No evidence of pulmonary embolus. Severe emphysema. Unchanged pulmonary nodules measuring up to 6 mm since 2016. RECOMMENDATIONS: Fleischner Society guidelines for follow-up and management of incidentally detected pulmonary nodules: Multiple Solid Nodules: Nodule size equals 6-8 mm In a low-risk patient, CT at 3-6 months, then consider CT at 18-24 months. In a high-risk patient, CT at 3-6 months, then CT at 18-24 months. D/ / Skylar Rai MD / Skylar Rai MD Interpreting Provider: Skylar Rai MD (2) Hypertension Priority: Secondary Status: Chronic Comments: Chronic. Continue home medications. Qualifiers: Hypertension type: essential hypertension Qualified Code(s): I10 - Essential (primary) hypertension (3) Tobacco abuse Priority: Secondary Status: Chronic Comments: Patient is using nicotine patches. We discussed smoking cessation. He will go home with nicotine patches. (4) DVT prophylaxis Priority: Secondary Status: Acute Comments: Subcutaneous heparin. - Discharge Medications Prescriptions: Azithromycin [Zithromax] 250 mg PO Q24H #7 tablet GuaiFENesin ER [Mucinex] 1,200 mg PO BID PRN #60 PRN Reason: Cough Nicotine Patch [Nicoderm] 7 mg TD DAILY #28 predniSONE [PredniSONE] 10 mg PO DAILY #41 Home Medications: Albuterol Neb [Proventil Neb] 2.5 mg IH Q4HR PRN #30 vial.neb 10/20/15 [Rx] Lovastatin [Mevacor] 40 mg PO HS 01/25/16 [History] Mometasone/Formoterol [Dulera 200 Mcg/5 Mcg Inhaler] 2 puff IH BID 01/25/16 [ History] Albuterol Sulfate [Albuterol Inhaler] 2 puff IH Q4H PRN 03/01/16 [History] Metoprolol [Lopressor] 25 mg PO BID #60 tablet 04/14/16 [Rx] Aspirin 81 mg PO DAILY #30 tab.chew 05/20/16 [Rx] Acetaminophen [Tylenol] 500 mg PO Q6H PRN 08/26/16 [History] Lansoprazole [Prevacid] 15 mg PO QAM 08/26/16 [History] Primidone [Mysoline] 50 mg PO BID 08/26/16 [History] Calcium Carbonate/Vitamin D3 [Calcium 600-Vit D3 400 Tablet] 1 tab PO DAILY [History] Theophylline Anhydrous [Curt-24] 100 mg PO DAILY 10/04/16 [History] hydrOXYzine pamoate [HydrOXYzine Pamoate] 25 mg PO Q6H PRN 10/04/16 [History] Azithromycin [Zithromax] 250 mg PO Q24H #7 tablet 10/06/16 [Rx] GuaiFENesin ER [Mucinex] 1,200 mg PO BID PRN #60 10/06/16 [Rx] Nicotine Patch [Nicoderm] 7 mg TD DAILY #28 10/06/16 [Rx] Tiotropium [Spiriva] 18 mcg IH DAILY inh 10/06/16 [Rx] predniSONE [PredniSONE] 10 mg PO DAILY #41 10/06/16 [Rx] Allergies/Adverse Reactions: Allergies ibuprofen [From Motrin] Adverse Reaction (Verified 06/11/16 21:48) Gastrointestinal Upset levofloxacin [From Levaquin] Adverse Reaction (Verified 06/11/16 21:48) Weakness Date of admission: 10/03/16 23:46 Primary care physician: Talita Coffey CNP Discharging clinician: Almaz Cohen Anticipated date of discharge: 10/06/16 - Patient Status Disposition: Home, Self-Care Condition: Good Functional capacity at discharge: independent ambulation Overall status at discharge: patient is progressing back to baseline - Discharge Instructions Follow Up With: Talita Coffey CNP [Primary Care Provider] - Forms: ED Satisfaction Letter Additional Instructions: Please follow-up with her primary care physician in the next 7-10 days for repeat evaluation. Wear your oxygen as needed. Continue home medications To continue medications as directed. Follow-up with your nurse navigator. Wear your nicotine patches daily. Turning to the emergency department as needed for any new or concerning problems or if her symptoms return or worsen. - Diet and Activity Activity: increase activity as tolerated, wear oxygen at all times Diet: advance to your usual diet Interval History: Mr. Amor is a 65-year-old male who presents to the emergency department shortness of breath that started 2 days prior to admission. Patient states that he awakened on Tuesday was more short of breath than usual. He patient has his own portable pulse ox read in the low 90s which is slightly lower than average for him. Patient does have a lot of anxiety and spends a great deal of time monitoring has pulse ox. Patient stated when he tried to exert himself is short of breath became worse and his oxygen following the 80s percent. Reports increased need for inhalers recently and a nonproductive cough. He denies fever , chills, nausea, vomiting, diarrhea. Patient was initially resistant to having home oxygen, however he did qualify today. He is in chronic, stable state, still requiring oxygen 2 L via nasal cannula at discharge. He will be discharged with home oxygen. He is in frequent close contact with his nurse navigator and I have encouraged him to notify her of the change. He has been treated with IV antibiotics, IV steroids, oxygen, breathing treatments. Home with Zithromax for 5 days, long steroid taper, home oxygen, he will continue his normal inhalers and breathing treatments at home. His lungs are diminished in all posterior garcia with faint wheezing heard in right base. Patient does not have any difficulty talking, speaks easily in full sentences. He does however become short of breath and his sats drop with exertion. Chest CTA showed no evidence of pulmonary embolus, severe emphysema, and unchanged pulmonary nodules measuring up to 6 mm that are stable, first seen in 2016. He will need to follow up with primary care for repeat CT in 3-6 months. Labs are stable, vital signs are stable within normal limits. Patient is ready for discharge. Hospital course: Mr. Amor is a 65 year old male - Time Spent with Patient Total time spent providing and/or coordinating discharge services: Less than 30 minutes - Constitutional Vitals: Temp Pulse Resp BP Pulse Ox 97.7 F 74 16 147/84 90 10/06/16 11:24 10/06/16 11:24 10/06/16 11:24 10/06/16 11:24 10/06/16 14:48 General appearance: Present: cooperative, A&O X 3, pleasant, no acute distress, answers questions appropriately - Head Head exam: Present: normal inspection - Eye Eye exam: Present: normal appearance, conjuntiva pink - ENT ENT exam: Present: mucous membranes moist, normal exam, normal external ear exam - Neck Neck exam general surgery: Present: normal inspection. Absent: lymphadenopathy , tenderness - Respiratory Respiratory exam: Present: decreased breath sounds, wheezes, tachypnea. Absent : chest wall tenderness, CTAB, rales, respiratory distress, rhonchi, stridor - Cardiovascular Cardiovascular exam: Present: RRR, +S1, +S2. Absent: clicks, diastolic murmur, gallop, systolic murmur - GI/Abdominal GI/Abdominal exam: Present: normal bowel sounds. Absent: distended, hepatomegaly (000), tenderness - Extremities Exam Extremities exam: Present: normal capillary refill, warm, radial pulses palpable and symetrical. Absent: pedal edema, tenderness - Neurological Exam Neurological exam: Present: alert, normal gait, oriented X3, strengths equal and symetr throughout. Absent: altered, facial droop, speech deficit - Skin Skin exam: Present: dry, intact, normal color, warm
[2016-10-06 16:05] VITALS: BP 157/92
== END 2016-10-06 19:12 | disposition home or self-care (01) ==
LOC: 3BNU 20:10 → EMEROO 20:10 → 3BNU 23:51
PROVIDERS: ADMIT Internal Medicine; ATTEND Nurse Practitioner Family

== ENCOUNTER 2017-02-28 18:45 | Inpatient (IN) ==
[2017-02-28] MEDS ORDERED: predniSONE 20 MG TABLET PO ONE (18:53)
[2017-02-28] MEDS ORDERED: Ipratropium/Albuterol Neb 3 ML IH ONE (18:53)
--- NOTE | 2017-02-28 19:03 | Emergency Department Note ---
Disposition Clinical Impression: COPD exacerbation Disposition: Admitted As Inpatient Condition: Good Time of Disposition: 20:10 General Adult HPI - General Chief complaint: ED Shortness of Breath/Dyspnea Stated complaint: LIZETH Time Seen by Provider: 02/28/17 18:51 Source: patient, EMS Mode of arrival: EMS Limitations: no limitations Nursing Notes Reviewed: Yes Vital Signs Reviewed: Yes - History of Present Illness HPI Narrative: 66-year-old male presenting to the emergency department with chief complaint of increased shortness of breath. Patient states for the past week he is not having progressive shortness of breath. Then just prior to arrival started getting worse. Patient does have a significant history of COPD. EMS provided him with 1 DuoNeb treatment which he states made him feel moderately better. Patient also describes having chest tightness. He believes this is from the cough that he is not having. He denies any stent placement or open-heart surgeries. He denies being on any anticoagulation. Patient states his cough has progressively change and has now become productive. He denies any fever, nausea or vomiting. - Related Data Home Medications Medication Instructions Recorded Confirmed Lovastatin [Mevacor] 40 mg PO HS 01/25/16 02/28/17 Mometasone/Formoterol [Dulera 200 2 puff IH BID 01/25/16 02/28/17 Mcg/5 Mcg Inhaler] Albuterol Sulfate [Albuterol 2 puff IH Q4H PRN 03/01/16 02/28/17 Inhaler] Acetaminophen [Tylenol] 500 mg PO Q6H PRN 08/26/16 02/28/17 Primidone [Mysoline] 50 mg PO BID 08/26/16 02/28/17 Calcium Carbonate/Vitamin D3 1 tab PO BID 10/04/16 02/28/17 [Calcium 600-Vit D3 400 Tablet] Theophylline Anhydrous [Curt-24] 100 mg PO DAILY 10/04/16 02/28/17 Docusate [Colace] 100 mg PO BID PRN 11/02/16 02/28/17 Furosemide [Lasix] 20 mg PO DAILY PRN 11/02/16 02/28/17 Potassium Chloride [Klor-Con] 20 meq PO DAILY PRN 11/02/16 02/28/17 Roflumilast [Daliresp] 500 mcg PO DAILY 11/02/16 02/28/17 Buspirone HCl [Buspar] 15 mg PO BID 02/28/17 02/28/17 Famotidine [Pepcid] 20 mg PO DAILY 02/28/17 02/28/17 GuaiFENesin ER [Mucinex] 600 mg PO BID PRN 02/28/17 02/28/17 Ipratropium/Albuterol Neb [Duoneb] 3 ml IH Q6H PRN 02/28/17 02/28/17 Tiotropium [place] [Spiriva 2 puff IH DAILY 02/28/17 02/28/17 Respimat] predniSONE [PredniSONE] 10 mg PO DAILY 02/28/17 02/28/17 Previous Rx's Medication Instructions Recorded Metoprolol [Lopressor] 25 mg PO BID #60 tablet 04/14/16 Aspirin 81 mg PO DAILY #30 tab.chew 05/20/16 Allergies Allergy/AdvReac Type Severity Reaction Status Date / Time azithromycin [From Zithromax] AdvReac See Verified 12/06/16 17:31 Comments hydrochlorothiazide AdvReac Difficulty Verified 12/06/16 17:31 Breathing ibuprofen [From Motrin] AdvReac Gastrointestinal Verified 12/06/16 17:31 Upset levofloxacin [From Levaquin] AdvReac See Verified 12/06/16 17:31 Comments All systems ED: reviewed and negative except as stated. Constitutional: Denies: fever, chills Eyes: Reports: as per HPI ENT ED: Reports: as per HPI Cardiovascular: Denies: chest pain, palpitations Respiratory: Reports: cough, dyspnea, sputum production Gastrointestinal: Denies: abdominal pain, nausea, vomiting Genitourinary: Reports: as per HPI Musculoskeletal: Reports: as per HPI Integumentary: Denies: rash, abrasion Neurological: Reports: as per HPI Psychiatric: Reports: as per HPI Endocrine: Reports: as per HPI Hematological/Lymphatic: Reports: as per HPI Allergic/Immunologic: Reports: as per HPI Past Medical History - Past Medical History Attestation: Yes The following information was validated with the patient. Medical history: Reports: COPD Surgical history: Reports: non-contributory, other Psychiatric history: Reports: anxiety, depression - Social History Smoking Status: Current every day smoker Smokeless Tobacco Status: No Alcohol use: Reports: none Drug use: Reports: none Physical Exam - General Limitations: no limitations General appearance: alert, in no apparent distress - Head Head exam: atraumatic, normocephalic, normal inspection - Eye Eye exam: Present: normal appearance. Absent: scleral icterus, conjunctival injection - Chest Chest inspection: Present: normal inspection, symmetric chest wall rise. Absent : tenderness, rash - Respiratory Respiratory exam: Present: other (Decreased breath sounds bilaterally anterior and posterior) - Cardiovascular Cardiovascular exam: Present: regular rate, normal rhythm, normal heart sounds - Abdominal Exam Abdominal exam: Present: soft, Non-Tender. Absent: distention, guarding, rebound - Extremities Exam Extremities exam: Present: normal inspection, full ROM - Neurological Exam Neurological exam: Present: alert, oriented X3 - Psychiatric Psychiatric exam: Present: normal affect, normal mood - Skin Skin exam: Present: warm, intact Course Course Narrative: 66-year-old male with known history of COPD presenting to the emergency department with chief complaint of shortness of breath and increase sputum production and cough. Patient has decreased breath sounds on physical exam. He is alert and oriented 3 and room stable vital signs at this time. We will provide him with duo nebs along with steroids, chest x-ray and basic labs. Disposition most likely be admission for COPD exacerbation. Pending results. Patient agrees with this plan. - Reevaluation(s) Reevaluation #1: All the patient's lab work and radiographs have resulted within normal limits. We will admit the patient at this time for a COPD exacerbation. Patient is alert and oriented 3 in the room and stable vital signs at this time. He agrees with this plan. Dr. Mcclain accepts the patient. Vital Signs Temperature 98.0 F 02/28/17 18:57 Pulse Rate 81 02/28/17 18:57 Respiratory Rate 22 02/28/17 18:57 Blood Pressure 197/119 02/28/17 18:57 O2 Sat by Pulse Oximetry 99 02/28/17 18:57 Temperature 98.0 F 02/28/17 18:57 Pulse Rate 81 02/28/17 18:57 Respiratory Rate 20 02/28/17 19:14 Blood Pressure 197/119 02/28/17 18:57 O2 Sat by Pulse Oximetry 97 02/28/17 20:04 Oxygen Delivery Oxygen Delivery Nasal Cannula Medical Decision Making - Lab Data Result diagrams: 02/28/17 19:31 02/28/17 19:31 Lab Results 02/28/17 02/28/17 02/28/17 Range/Units 19:31 19:31 19:31 WBC 6.0 (4.3-11.1) K/mcL RBC 5.09 (4.19-5.50) M/mcL Hgb 15.7 (12.9-16.9) g/dL Hct 49.3 (37.5-50.1) % MCV 96.9 (83.0-100.0) fL MCH 30.8 (28.0-33.3) pg MCHC 31.8 (31.6-35.5) g/dL RDW 13.7 (11.5-14.5) % Plt Count 191 (140-400) K/mcL MPV 9.9 (9.4-12.4) fL Immature Gran % 0.2 (0-4) % Seg Neutrophils % 74.8 % Lymphocytes % 14.8 % Monocytes % 9.5 % Eosinophils % 0.2 % Basophils % 0.5 % Neutrophils # 4.5 (1.6-8.9) K/mcL Lymphocytes # 0.9 (0.6-4.6) K/mcL Monocytes # 0.6 (0.0-1.3) K/mcL Eosinophils # 0.0 (0.0-0.6) K/mcL Basophils # 0.0 (0.0-0.2) K/mcL Sodium 144 (136-145) mEq/L Potassium 4.4 (3.5-4.5) mEq/L Chloride 103 (98-109) mEq/L Carbon Dioxide 32 H (19-29) mEq/L BUN 15 (8-26) mg/dL Creatinine 1.18 (0.72-1.25) mg/dL Est GFR ( Amer) > 60 (> 60) Est GFR (Non-Af Amer) > 60 (> 60) BUN/Creatinine Ratio 13 (6-26) Glucose 103 H (70-99) mg/dL Calculated Osmolality 299 (280-300) Calcium 10.1 (8.6-10.8) mg/dL Troponin I 0.01 (0-0.03) ng/mL
[2017-02-28 19:41] LABS: Basophils % 0.5 %; Eosinophils % 0.2 %; Hematocrit 49.3 % (37.5-50.1); Hemoglobin 15.7 g/dL (12.9-16.9); Immature Granulocytes % 0.2 % (0-4); Lymphocytes # 0.9 K/mcL (0.6-4.6); Lymphocytes % 14.8 %; Mean Corpuscular HGB Conc 31.8 g/dL (31.6-35.5); Mean Corpuscular Hemoglobin 30.8 pg (28.0-33.3); Mean Corpuscular Volume 96.9 fL (83.0-100.0); Mean Platelet Volume 9.9 fL (9.4-12.4); Monocytes # 0.6 K/mcL (0.0-1.3); Monocytes % 9.5 %; Neutrophils # 4.5 K/mcL (1.6-8.9); Platelet Count 191 K/mcL (140-400); Red Blood Count 5.09 M/mcL (4.19-5.50); Red Cell Distribution Width 13.7 % (11.5-14.5); Segmented Neutrophils % 74.8 %
[2017-02-28 19:59] LABS: BUN/Creatinine Ratio 13 (6-26); Blood Urea Nitrogen 15 mg/dL (8-26); Calcium 10.1 mg/dL (8.6-10.8); Carbon Dioxide 32 mEq/L (19-29); Chloride 103 mEq/L (98-109); Glucose 103 mg/dL (70-99); Osmolality,Calculated 299 (280-300); Potassium 4.4 mEq/L (3.5-4.5); Sodium 144 mEq/L (136-145); eGFR For African Americans > 60 (> 60); eGFR For Non-African Americans > 60 (> 60)
--- NOTE | 2017-02-28 20:12 | Emergency Department Note ---
START Narrative - START START: I examined this patient and my medical decision-making was reviewed with the SCIENTIFIC AIDE/PA/Advanced Practice Nurse/Resident Physician. I agree with the documented findings, disposition and treatment plan as described except to the extent set forth below. ED attending: Patient's emergency medicine resident Dr. Divine Maddox. Please see copy of this note for H&P evaluation and management and ED disposition. We both had independent [id number] time in contact with this patient. Briefly: A 66-year-old male smoker COPD presents with a cough and shortness of breath. Chest x-ray shows no acute process CBC troponin within normal limits patient's lungs mild expiratory wheezing despite IV steroids and DuoNeb's. Patient admitted to the hospitalist in stable condition.
[2017-02-28] MEDS ORDERED: Nitroglycerin 1 INCH/GM PACKET TP ONE (20:59)
[2017-02-28] MEDS ORDERED: Nitroglycerin 1 INCH/GM PACKET ONE (21:01)
[2017-02-28] MEDS ORDERED: Furosemide 20 MG TABLET PO PRN (21:35)
[2017-02-28] MEDS ORDERED: *HR* Morphine 2 MG/ML SYRINGE IVP PRN (21:38)
[2017-02-28] MEDS ORDERED: Ondansetron 4 MG/2 ML VIAL IVP PRN (21:38)
[2017-02-28] MEDS ORDERED: Naloxone 0.4 MG/ML INJ IVP PRN (21:38)
--- NOTE | 2017-02-28 21:42 | Internal Med History&Physical ---
Date of Encounter: 02/28/17 Time of Encounter: 21:10 Assessment and Plan (1) Acute exacerbation of chronic obstructive airways disease Current visit: Yes Status: Acute Acute exacerbation of COPD Continue DuoNeb breathing treatment, IV Solu-Medrol, Spiriva, Mucinex, Theophylline IV Morphine PRN, Tylenol PRN, O2 via NC Chest x-ray - no acute process, moderate to severe emphysema EKG - sinus rhythm with no acute ST-T changes Troponin - 0.01 BNP - 52 Cardiac telemetry, pulse ox, labs in a.m., monitor closely (2) Hypertension Current visit: Yes Status: Chronic Essential hypertension, controlled, monitor Continue home dose of Lopressor Qualifiers: Hypertension type: essential hypertension Qualified Code(s): I10 - Essential (primary) hypertension (3) Tobacco abuse Current visit: Yes Status: Chronic Patient states he smokes cigars daily, counseled about cessation Declines nicotine patch (4) HLD (hyperlipidemia) Current visit: Yes Status: Chronic Continue Zocor Qualifiers: Hyperlipidemia type: unspecified Qualified Code(s): E78.5 - Hyperlipidemia , unspecified (5) History of stroke Current visit: Yes Status: Chronic History of CVA, with no residual deficits Continue aspirin, Zocor (6) DVT prophylaxis Current visit: Yes Status: Acute Heparin subcutaneous Internal Medicine - H&P: HPI Chief complaint: Shortness of breath Admitted From: Emergency Dept Plans for Post Hospital Care: Home History of present illness: Mr. Steven is a 66 year old male with past medical history of advanced COPD, hypertension, essential tremor, hyperlipidemia, anxiety and depression. Patient presented to ED with complaints of shortness of breath and cough. Examined in the room. Patient is awake and alert. Not in any distress. Able to provide all history. No family members at bedside. Patient states he developed shortness of breath cough about a week ago. Symptoms are gradually worsening. He states he does have a productive cough with clear sputum. Symptoms are worse with exertion. Patient uses 2 L O2 via NC at home. Patient denies chest pain or palpitations. States he has used his rescue inhaler and breathing treatments without any relief. He decided to come to the ED because of worsening shortness of breath even at rest. No alleviating factors. No other associated symptoms. No other acute complaints. Initial workup in the ED is negative. Patient is being admitted for acute COPD exacerbation. He will need DuoNeb breathing treatment, IV steroids and empiric IV antibiotics. Patient has been explained about his condition and plan of care in detail. He understood and agreed. No unanswered questions. CODE STATUS full code. Past Med Surg Social Fam HX - Past Medical History Medical history: COPD, CVA, hyperlipidemia, hypertension Psychiatric history: anxiety, depression - Past Surgical History Surgical History: non-contributory, other - Social History Smoking Status: Current every day smoker Packs per day: 0.5 Smokeless Tobacco Status: No Alcohol use: none Drug use: none - Family History Mother Adopted: No Family Member Ethnicity: Non- Living Status: Hx Family Cardiac Disorders: Yes (uncle, grandparents) Hx Family Respiratory Disorders: Yes (self,father) Hx Family Cancer: Yes (mother) Hx Family GI Disorders: No Hx Family Endocrine Disorder: No Hx Family Neuromuscular Disorders: No Hx Family Neurologic Disorders: Yes (self) Hx Family HEENT Disorders: No Hx Family Autoimmune Disorders: No Father Living Status: Hx Family Respiratory Disorders: Yes (COPD) Internal Medicine - H&P: Meds Lovastatin [Mevacor] 40 mg PO HS 01/25/16 [History] Mometasone/Formoterol [Dulera 200 Mcg/5 Mcg Inhaler] 2 puff IH BID 01/25/16 [ History] Albuterol Sulfate [Albuterol Inhaler] 2 puff IH Q4H PRN 03/01/16 [History] Metoprolol [Lopressor] 25 mg PO BID #60 tablet 04/14/16 [Rx] Aspirin 81 mg PO DAILY #30 tab.chew 05/20/16 [Rx] Acetaminophen [Tylenol] 500 mg PO Q6H PRN 08/26/16 [History] Primidone [Mysoline] 50 mg PO BID 08/26/16 [History] Calcium Carbonate/Vitamin D3 [Calcium 600-Vit D3 400 Tablet] 1 tab PO BID [History] Theophylline Anhydrous [Curt-24] 100 mg PO DAILY 10/04/16 [History] Docusate [Colace] 100 mg PO BID PRN 11/02/16 [History] Furosemide [Lasix] 20 mg PO DAILY PRN 11/02/16 [History] Potassium Chloride [Klor-Con] 20 meq PO DAILY PRN 11/02/16 [History] Roflumilast [Daliresp] 500 mcg PO DAILY 11/02/16 [History] Buspirone HCl [Buspar] 15 mg PO BID 02/28/17 [History] Famotidine [Pepcid] 20 mg PO DAILY 02/28/17 [History] GuaiFENesin ER [Mucinex] 600 mg PO BID PRN 02/28/17 [History] Ipratropium/Albuterol Neb [Duoneb] 3 ml IH Q6H PRN 02/28/17 [History] Tiotropium [place] [Spiriva Respimat] 2 puff IH DAILY 02/28/17 [History] predniSONE [PredniSONE] 10 mg PO DAILY 02/28/17 [History] 3 Allergy/AdvReac Type Severity Reaction Status Date / Time azithromycin [From Zithromax] AdvReac See Verified 12/06/16 17:31 Comments hydrochlorothiazide AdvReac Difficulty Verified 12/06/16 17:31 Breathing ibuprofen [From Motrin] AdvReac Gastrointestinal Verified 12/06/16 17:31 Upset levofloxacin [From Levaquin] AdvReac See Verified 12/06/16 17:31 Comments All Systems PM: A 10-system review of systems was performed and is negative for pertinent findings except as documented above in the HPI. - Constitutional Constitutional: fatigue, no fever(s), no weakness - EENT Eyes: no blurry vision - Cardiovascular Cardiovascular ROS IM: dyspnea, dyspnea on exertion, orthopnea, no chest pain, no diaphoresis, no edema, no lightheadedness, no palpitations, no syncope - Respiratory Respiratory: cough, dyspnea, dyspnea on exertion, wheezing, chest congestion, excessive phlegm production, no hemoptysis - Gastrointestinal Gastrointestinal: no abdominal pain, no bloating, no cramping, no diarrhea, no hematemesis, no hematochezia, no melena, no nausea, no vomiting - Genitourinary Genitourinary ROS male: no dysuria - Neurological Neurological ROS: no abnormal gait, no confusion, no dizziness, no focal weakness, no memory loss, no numbness, no tingling - Constitutional Vitals: Temp Pulse Resp BP Pulse Ox 97.9 F 90 16 158/83 99 02/28/17 21:23 02/28/17 21:23 02/28/17 21:23 02/28/17 21:23 02/28/17 21:41 General appearance: Present: cooperative, A&O X 3, pleasant, no acute distress, answers questions appropriately - Head Head exam: Present: atraumatic - Eye Eye exam: Present: EOMI - ENT ENT exam: Present: mucous membranes dry - Respiratory Respiratory exam: Present: decreased breath sounds (Diminished breath sounds in both bases), wheezes (Mild bilateral), tachypnea. Absent: accessory muscle use , rales, respiratory distress, rhonchi - Cardiovascular Cardiovascular exam: Present: RRR, +S1, +S2 - GI/Abdominal GI/Abdominal exam: Present: soft. Absent: distended, firm, guarding, tenderness - Extremities Exam Extremities exam: Present: radial pulses palpable and symmetrical. Absent: calf tenderness, cyanotic, pedal edema - Neurological Exam Neurological exam: Present: alert, oriented X3, no focal deficits. Absent: facial droop, speech deficit Internal Med - H&P Results - Labs CBC & Chem 7: 02/28/17 19:31 02/28/17 19:31
[2017-02-28 22:37] LABS: INR 1.1; Prothrombin Time 12.1 Seconds (9.4-12.1)
[2017-02-28] MEDS: MethylPREDNISolone 40 MG/ML VIAL IVP SCH (22:59)
[2017-02-28] MEDS: Aspirin 81 MG TAB.CHEW PO SCH (22:59)
[2017-02-28] MEDS: Ipratropium/Albuterol Neb 3 ML IH SCH (23:26)
[2017-03-01 01:43] LABS: Bilirubin,Urine Negative (Negative); Blood,Urine Negative (Negative); Clarity,Urine Clear (Clear); Color,Urine Yellow (Yellow); Glucose,Urine (UA) Normal (Normal); Ketones,Urine Negative (Negative); Leukocyte Esterase,Urine Negative (Negative); Nitrite,Urine Negative (Negative); Protein,Urine Negative (Neg-Trace); Specific Gravity,Urine 1.028 (1.010-1.025); Urobilinogen,Urine Normal (Normal)
[2017-03-01] MEDS: Ipratropium/Albuterol Neb 3 ML IH SCH ×5 (03:34→22:06)
[2017-03-01] MEDS: *HR* Heparin 5,000 UNIT/ML VIAL SQ SCH ×2 (06:06→17:04)
[2017-03-01 06:33] LABS: BUN/Creatinine Ratio 18 (6-26); Blood Urea Nitrogen 18 mg/dL (8-26); Calcium 8.4 mg/dL (8.6-10.8); Carbon Dioxide 29 mEq/L (19-29); Chloride 102 mEq/L (98-109); Glucose 130 mg/dL (70-99); Magnesium 1.6 mg/dL (1.6-2.6); Osmolality,Calculated 294 (280-300); Potassium 4.6 mEq/L (3.5-4.5); Sodium 140 mEq/L (136-145); eGFR For African Americans > 60 (> 60); eGFR For Non-African Americans > 60 (> 60)
[2017-03-01] MEDS: MethylPREDNISolone 40 MG/ML VIAL IVP SCH ×2 (08:29→21:04)
[2017-03-01] MEDS: Primidone 50 MG TABLET PO SCH ×2 (08:30→21:06)
[2017-03-01] MEDS: Aspirin 81 MG TAB.CHEW PO SCH (08:30)
[2017-03-01] MEDS: Famotidine 20 MG TABLET PO SCH (08:30)
[2017-03-01] MEDS: (Roflumilast [Daliresp] 500 MCG) PO SCH (08:33)
[2017-03-01] MEDS: (Mometasone/Formoterol [Dulera 200 Mcg/5 Mcg Inhaler]) IH SCH ×2 (08:33→21:18)
[2017-03-01] MEDS ORDERED: CALCIUM CARBONATE PO SCH (09:00)
[2017-03-01] MEDS ORDERED: VITAMIN D3 PO SCH (09:00)
[2017-03-01] MEDS ORDERED: Ipratropium/Albuterol Neb 3 ML IH PRN (09:20)
[2017-03-01] MEDS ORDERED: Tiotropium 18 MCG inhalation IH SCH (10:00)
--- NOTE | 2017-03-01 10:02 | Internal Med Progress Note ---
Date of Encounter: 03/01/17 Time of Encounter: 09:05 - Assessment and plan (1) Acute exacerbation of chronic obstructive airways disease Current Visit: Yes Status: Acute Assessment and plan: continue systemic steroids (solumedrol 40mg IV q12h), bronchodilator support O2 supplementation monitor O2 sat, goal O2 sat: 88-92% will continue to closely monitor (2) Difficulty urinating Current Visit: Yes Status: Acute Assessment and plan: started on Tamsulosin 0.4mg PO qd if symptoms persist, will consider urology evaluation (3) History of stroke Current Visit: Yes Status: Chronic Assessment and plan: no residual deficits continue asa, statin (4) HLD (hyperlipidemia) Current Visit: Yes Status: Chronic Assessment and plan: continue statin therapy Qualifiers: Hyperlipidemia type: unspecified Qualified Code(s): E78.5 - Hyperlipidemia , unspecified (5) Hypertension Current Visit: Yes Status: Chronic Assessment and plan: BP within acceptable range continue home meds Qualifiers: Hypertension type: essential hypertension Qualified Code(s): I10 - Essential (primary) hypertension (6) Tobacco abuse Current Visit: Yes Status: Chronic Assessment and plan: smoking cessation counseling provided patient refused nicotine replacement therapy (7) DVT prophylaxis Current Visit: Yes Status: Acute Assessment and plan: Heparin SQ - Subjective Interval history: Patient seen and examined at bedside. Resting in bed and reports of improvement from previous day. reports of being an everyday smoker and is not ready to quit. States at home he uses oxygen as needed, however currently remains O2 dependent. Also reports of difficulty urinating, reports of straining during urination and has extensive family history of BPH. - Constitutional Vitals: Temp Pulse Resp BP Pulse Ox 98.0 F 62 18 126/76 98 03/01/17 09:55 03/01/17 09:55 03/01/17 09:55 03/01/17 09:55 03/01/17 09:55 General appearance: Present: cooperative, A&O X 3, pleasant, no acute distress, answers questions appropriately - Head Head exam: Present: atraumatic, normocephalic - Eye Eye exam: Present: conjuntiva pink, sclera anicteric - Respiratory Respiratory exam: Present: decreased breath sounds (diffusely), wheezes ( bilateral expiratory wheezing). Absent: respiratory distress - Cardiovascular Cardiovascular exam: Present: RRR, +S1, +S2. Absent: diastolic murmur, gallop, rubs, systolic murmur - GI/Abdominal GI/Abdominal exam: Present: normal bowel sounds, soft, no peritoneal signs. Absent: distended, tenderness - Extremities Exam Extremities exam: Present: warm, radial pulses palpable and symmetrical. Absent : calf tenderness, cyanotic, pedal edema - Neurological Exam Neurological exam: Present: alert, oriented X3 - Psychiatric Psychiatric exam: Present: normal affect, normal mood Internal Medicine: Result - Labs CBC & Chem 7: 02/28/17 19:31 03/01/17 05:32 Labs: BMP 03/01/17 05:32 Sodium 140 Potassium 4.6 H Chloride 102 Carbon Dioxide 29 BUN 18 Creatinine 1.02 Glucose 130 H Calcium 8.4 L D Urine 03/01/17 Range/Units 01:15 Urine Color Yellow (Yellow) Urine Clarity Clear (Clear) Urine pH 6.0 (5.0-8.0) pH Units Ur Specific [place] 1.028 H (1.010-1.025) Urine Protein Negative (Neg-Trace) mg/dL Urine Glucose (UA) Normal (Normal) mg/dL - ABG Interpretation ABG results: PT/INR, D-dimer PT 12.1 Seconds (9.4-12.1) 02/28/17 00:36 Consult Discharge Plan - Plan Referrals: Talita Coffey, HAT BINDER [Primary Care Provider] -
--- NOTE | 2017-03-01 11:44 | Electrocardiograph Report ---
[place] [id number] Test Date: 2017-02-28 Pat Name: Ellis Steven Department: 103 Room: 3B Gender: M [employer] Agent: JOCELYN : 1950 Requested By: Divine Maddox Order Number: [id number] Reading MD: Graciela Mulligan Measurements Intervals [place] Rate: 73 P: 70 CO: 142 QRS: 71 QRSD: 77 T: 70 QT: 371 QTc: 396 Interpretive Statements SINUS RHYTHM Electronically Signed On 03-01-2017 11:42:20 EST by Graciela Mulligan
[2017-03-02] MEDS: Ipratropium/Albuterol Neb 3 ML IH SCH ×4 (03:55→21:35)
[2017-03-02 05:08] LABS: Hematocrit 38.7 % (37.5-50.1); Immature Granulocytes % 0.1 % (0-4); Lymphocytes # 0.3 K/mcL (0.6-4.6); Lymphocytes % 4.2 %; Mean Corpuscular Hemoglobin 30.7 pg (28.0-33.3); Mean Corpuscular Volume 95.8 fL (83.0-100.0); Mean Platelet Volume 10.3 fL (9.4-12.4); Monocytes # 0.5 K/mcL (0.0-1.3); Monocytes % 6.5 %; Neutrophils # 6.4 K/mcL (1.6-8.9); Platelet Count 154 K/mcL (140-400); Red Blood Count 4.04 M/mcL (4.19-5.50); Red Cell Distribution Width 13.6 % (11.5-14.5); Segmented Neutrophils % 89.2 %
[2017-03-02 05:10] LABS: Hemoglobin 12.4 g/dL (12.9-16.9)
[2017-03-02 05:15] LABS: BUN/Creatinine Ratio 19 (6-26); Blood Urea Nitrogen 24 mg/dL (8-26); Calcium 8.1 mg/dL (8.6-10.8); Carbon Dioxide 33 mEq/L (19-29); Chloride 102 mEq/L (98-109); Glucose 140 mg/dL (70-99); Osmolality,Calculated 298 (280-300); Potassium 4.5 mEq/L (3.5-4.5); Sodium 141 mEq/L (136-145); eGFR For African Americans > 60 (> 60); eGFR For Non-African Americans 57 (> 60)
[2017-03-02] MEDS: *HR* Heparin 5,000 UNIT/ML VIAL SQ SCH ×2 (08:00→17:32)
[2017-03-02] MEDS: Aspirin 81 MG TAB.CHEW PO SCH (08:16)
[2017-03-02] MEDS: Primidone 50 MG TABLET PO SCH ×2 (08:16→21:51)
[2017-03-02] MEDS: Cholecalciferol (D-3) 1,000 UNIT TABLET PO SCH (08:16)
[2017-03-02] MEDS: Famotidine 20 MG TABLET PO SCH (08:17)
[2017-03-02] MEDS: MethylPREDNISolone 40 MG/ML VIAL IVP SCH ×2 (08:17→21:50)
[2017-03-02] MEDS: (Mometasone/Formoterol [Dulera 200 Mcg/5 Mcg Inhaler]) IH SCH ×2 (08:18→21:52)
[2017-03-02] MEDS: (Roflumilast [Daliresp] 500 MCG) PO SCH (08:18)
--- NOTE | 2017-03-02 08:42 | Internal Med Progress Note ---
Date of Encounter: 03/02/17 Time of Encounter: 08:35 - Assessment and plan (1) Acute exacerbation of chronic obstructive airways disease Current Visit: Yes Status: Acute Assessment and plan: continue systemic steroids (solumedrol 40mg IV q12h), bronchodilator support O2 supplementation monitor O2 sat, goal O2 sat: 88-92% will continue to closely monitor (2) Urinary retention Current Visit: Yes Status: Acute Assessment and plan: continue Tamsulosin 0.4mg PO qd Pt unable to void due to which indwelling carrasco cath was placed urology consultation requested f/u renal US (3) History of stroke Current Visit: Yes Status: Chronic Assessment and plan: no residual deficits continue asa, statin (4) HLD (hyperlipidemia) Current Visit: Yes Status: Chronic Assessment and plan: continue statin therapy Qualifiers: Hyperlipidemia type: unspecified Qualified Code(s): E78.5 - Hyperlipidemia , unspecified (5) Hypertension Current Visit: Yes Status: Chronic Assessment and plan: BP within acceptable range continue home meds Qualifiers: Hypertension type: essential hypertension Qualified Code(s): I10 - Essential (primary) hypertension (6) Tobacco abuse Current Visit: Yes Status: Chronic Assessment and plan: smoking cessation counseling provided patient refused nicotine replacement therapy (7) DVT prophylaxis Current Visit: Yes Status: Acute Assessment and plan: Heparin SQ (8) EMILIANO (acute kidney injury) Current Visit: Yes Status: Acute Assessment and plan: likely secondary to diuretic therapy vs. urinary retention will hold today's Lasix dose will obtain Renal US avoid nephrotoxic agents closely monitor renal function - Subjective Interval history: Patient seen and examined at bedside. Patient reports of improvement in his shortness of breath, however noted to become hypoxic with minimal ambulation. Will continue systemic steroids. Also noted to have difficulty voiding, due to which carrasco catheter was placed. Urology consultation requested for urinary retention noted to have EMILIANO, will obtain renal US - Constitutional Vitals: Temp Pulse Resp BP Pulse Ox 98.1 F 63 16 136/82 100 03/02/17 08:10 03/02/17 08:10 03/02/17 08:10 03/02/17 08:10 03/02/17 08:26 General appearance: Present: cooperative, A&O X 3, pleasant, no acute distress, answers questions appropriately - Head Head exam: Present: atraumatic, normocephalic - Eye Eye exam: Present: conjuntiva pink, sclera anicteric - Respiratory Respiratory exam: Present: decreased breath sounds. Absent: accessory muscle use, respiratory distress, wheezes - Cardiovascular Cardiovascular exam: Present: RRR, +S1, +S2. Absent: diastolic murmur, gallop, rubs, systolic murmur - GI/Abdominal GI/Abdominal exam: Present: normal bowel sounds, soft, no peritoneal signs. Absent: distended, tenderness - Extremities Exam Extremities exam: Present: warm, radial pulses palpable and symmetrical. Absent : calf tenderness - Neurological Exam Neurological exam: Present: alert, oriented X3 - Psychiatric Psychiatric exam: Present: normal affect, normal mood Internal Medicine: Result - Labs CBC & Chem 7: 03/02/17 03:36 03/02/17 03:36 Labs: Short CBC 03/02/17 Range/Units 03:36 WBC 7.2 (4.3-11.1) K/mcL Hgb 12.4 L D (12.9-16.9) g/dL Hct 38.7 (37.5-50.1) % Plt Count 154 (140-400) K/mcL Neutrophils # 6.4 (1.6-8.9) K/mcL BMP 03/02/17 03:36 Sodium 141 Potassium 4.5 Chloride 102 Carbon Dioxide 33 H BUN 24 Creatinine 1.26 H Glucose 140 H Calcium 8.1 L - ABG Interpretation ABG results: PT/INR, D-dimer PT 12.1 Seconds (9.4-12.1) 02/28/17 00:36 Consult Discharge Plan - Plan Referrals: Talita Coffey, INDUSTRIAL CAFETERIA MANAGER [Primary Care Provider] -
--- NOTE | 2017-03-02 10:49 | Event Note ---
Date of Encounter: 03/02/17 Time of Encounter: 10:49 attempted to see patient. patient off floor. will reeval tomorrow am.
[2017-03-03] MEDS: Ipratropium/Albuterol Neb 3 ML IH SCH ×4 (04:09→22:11)
[2017-03-03 04:11] LABS: Hematocrit 39.8 % (37.5-50.1); Hemoglobin 12.5 g/dL (12.9-16.9); Immature Granulocytes % 0.2 % (0-4); Lymphocytes # 0.2 K/mcL (0.6-4.6); Lymphocytes % 4.4 %; Mean Corpuscular HGB Conc 31.4 g/dL (31.6-35.5); Mean Corpuscular Hemoglobin 30.3 pg (28.0-33.3); Mean Corpuscular Volume 96.4 fL (83.0-100.0); Mean Platelet Volume 10.2 fL (9.4-12.4); Monocytes # 0.2 K/mcL (0.0-1.3); Monocytes % 3.3 %; Neutrophils # 4.8 K/mcL (1.6-8.9); Platelet Count 147 K/mcL (140-400); Red Blood Count 4.13 M/mcL (4.19-5.50); Red Cell Distribution Width 13.7 % (11.5-14.5); Segmented Neutrophils % 92.1 %
[2017-03-03 04:16] LABS: BUN/Creatinine Ratio 20 (6-26); Blood Urea Nitrogen 19 mg/dL (8-26); Calcium 7.8 mg/dL (8.6-10.8); Carbon Dioxide 30 mEq/L (19-29); Chloride 104 mEq/L (98-109); Glucose 139 mg/dL (70-99); Magnesium 1.9 mg/dL (1.6-2.6); Osmolality,Calculated 295 (280-300); Phosphorous 2.7 mg/dL (2.3-4.7); Potassium 4.8 mEq/L (3.5-4.5); Sodium 140 mEq/L (136-145); eGFR For African Americans > 60 (> 60); eGFR For Non-African Americans > 60 (> 60)
[2017-03-03] MEDS: *HR* Heparin 5,000 UNIT/ML VIAL SQ SCH ×2 (06:31→17:24)
[2017-03-03] MEDS: MethylPREDNISolone 40 MG/ML VIAL IVP SCH ×2 (07:33→20:39)
[2017-03-03] MEDS: Primidone 50 MG TABLET PO SCH ×2 (07:34→20:39)
[2017-03-03] MEDS: Famotidine 20 MG TABLET PO SCH (07:34)
[2017-03-03] MEDS: Cholecalciferol (D-3) 1,000 UNIT TABLET PO SCH (07:34)
[2017-03-03] MEDS: Aspirin 81 MG TAB.CHEW PO SCH (07:34)
[2017-03-03] MEDS: (Roflumilast [Daliresp] 500 MCG) PO SCH (07:37)
--- NOTE | 2017-03-03 09:00 | Internal Med Progress Note ---
Date of Encounter: 03/03/17 Time of Encounter: 08:20 - Assessment and plan (1) Acute exacerbation of chronic obstructive airways disease Current Visit: Yes Status: Acute Assessment and plan: continue systemic steroids (solumedrol 40mg IV q12h), bronchodilator support. Will d/c IV steroids after tonight's dose and start Prednisone 40mg PO qd in am O2 supplementation monitor O2 sat, goal O2 sat: 88-92% will continue to closely monitor likely d/c in am if remains clinically stable (2) Urinary retention Current Visit: Yes Status: Acute Assessment and plan: continue Tamsulosin 0.4mg PO qd Pt unable to void due to which indwelling carrasco cath was placed renal US: No mass, atrophy, or hydronephrosis noted (3) History of stroke Current Visit: Yes Status: Chronic Assessment and plan: no residual deficits continue asa, statin (4) HLD (hyperlipidemia) Current Visit: Yes Status: Chronic Assessment and plan: continue statin therapy Qualifiers: Hyperlipidemia type: unspecified Qualified Code(s): E78.5 - Hyperlipidemia , unspecified (5) Hypertension Current Visit: Yes Status: Chronic Assessment and plan: BP within acceptable range continue home meds Qualifiers: Hypertension type: essential hypertension Qualified Code(s): I10 - Essential (primary) hypertension (6) Tobacco abuse Current Visit: Yes Status: Chronic Assessment and plan: smoking cessation counseling provided patient refused nicotine replacement therapy (7) DVT prophylaxis Current Visit: Yes Status: Acute Assessment and plan: Heparin SQ (8) EMILIANO (acute kidney injury) Current Visit: Yes Status: Resolved Assessment and plan: likely secondary to diuretic therapy vs. urinary retention Resolved Will restart lasix at a lower dose given pedal edema avoid nephrotoxic agents closely monitor renal function - Subjective Interval history: Patient seen and examined at bedside. Patient states overnight he felt short of breath despite nebulizer treatments, and does not feel he is ready to go home. Currently saturating well on room air however requires oxygen with ambulation. - Constitutional Vitals: Temp Pulse Resp BP Pulse Ox 98.4 F 65 16 129/79 98 03/03/17 07:06 03/03/17 07:06 03/03/17 07:06 03/03/17 07:06 03/03/17 07:06 General appearance: Present: cooperative, A&O X 3, pleasant, no acute distress, answers questions appropriately - Head Head exam: Present: atraumatic, normocephalic - Eye Eye exam: Present: conjuntiva pink, sclera anicteric - Respiratory Respiratory exam: Present: decreased breath sounds. Absent: respiratory distress, wheezes - Cardiovascular Cardiovascular exam: Present: RRR, +S1, +S2. Absent: diastolic murmur, gallop, rubs, systolic murmur - GI/Abdominal GI/Abdominal exam: Present: normal bowel sounds, soft, no peritoneal signs. Absent: distended, tenderness - Extremities Exam Extremities exam: Present: pedal edema (trace pedal edema), warm, radial pulses palpable and symmetrical. Absent: calf tenderness - Neurological Exam Neurological exam: Present: alert, oriented X3 - Psychiatric Psychiatric exam: Present: normal affect, normal mood Internal Medicine: Result - Labs CBC & Chem 7: 03/03/17 03:39 03/03/17 03:39 Labs: Short CBC 03/03/17 Range/Units 03:39 WBC 5.2 (4.3-11.1) K/mcL Hgb 12.5 L (12.9-16.9) g/dL Hct 39.8 (37.5-50.1) % Plt Count 147 (140-400) K/mcL Neutrophils # 4.8 (1.6-8.9) K/mcL BMP 03/03/17 03:39 Sodium 140 Potassium 4.8 H Chloride 104 Carbon Dioxide 30 H BUN 19 Creatinine 0.95 Glucose 139 H Calcium 7.8 L - ABG Interpretation ABG results: PT/INR, D-dimer PT 12.1 Seconds (9.4-12.1) 02/28/17 00:36 - Impressions Impressions Retroperitoneum Ultrasound 03/02/17 10:30 IMPRESSION: No focal renal mass, atrophy, or hydronephrosis. Incidental note made of moderately increased echotexture diffusely throughout the liver related to hepatic steatosis. D/ / Oneil Schaffer MD / Oneil Schaffer MD Interpreting Provider: Oneil Schaffer MD Consult Discharge Plan - Plan Referrals: Talita Coffey, VULNERABILITY RESEARCHER [Primary Care Provider] -
[2017-03-03] MEDS: Furosemide 20 MG TABLET PO SCH (10:04)
[2017-03-03] MEDS: Budesonide/Formoterol 160/4.5 MDI IH SCH ×2 (11:31→22:11)
--- NOTE | 2017-03-03 16:20 | Urology - Consult Note ---
Date of Encounter: 03/03/17 Time of Encounter: 16:18 - Assessment and Plan (1) Urinary retention Current Visit: Yes Status: Acute Assessment and plan: Recommend for patient to keep catheter in place. Continue with Flomax. Patient will need follow-up with me next Tuesday or Tuesday for voiding trial. Urology CN:ANDREW Consult date: 03/03/17 Reason for consult Urology: Other (urinary retention) Requesting physician: Nazia Crowe History of present illness: Ellis is a 66-year-old male who was admitted for COPD exacerbation was found to be in urinary retention. Catheter was placed with 500 mL's of urine returned. Patient believes this issue has been slowly worsening over the past few months. He has been placed on Flomax since arriving to the hospital. Past Med Surg Social Fam HX - Past Medical History Medical history: COPD, CVA, hyperlipidemia, hypertension Psychiatric history: anxiety, depression - Past Surgical History Surgical History: non-contributory, other - Social History Smoking Status: Current every day smoker Packs per day: 0.5 Smokeless Tobacco Status: No Alcohol use: none Drug use: none - Family History Mother Adopted: No Family Member Ethnicity: Non- Living Status: Hx Family Cardiac Disorders: Yes (uncle, grandparents) Hx Family Respiratory Disorders: Yes (self,father) Hx Family Cancer: Yes (mother) Hx Family GI Disorders: No Hx Family Endocrine Disorder: No Hx Family Neuromuscular Disorders: No Hx Family Neurologic Disorders: Yes (self) Hx Family HEENT Disorders: No Hx Family Autoimmune Disorders: No Father Living Status: Hx Family Respiratory Disorders: Yes (COPD) Medications and Allergies Lovastatin [Mevacor] 40 mg PO HS 01/25/16 [History] Mometasone/Formoterol [Dulera 200 Mcg/5 Mcg Inhaler] 2 puff IH BID 01/25/16 [ History] Albuterol Sulfate [Albuterol Inhaler] 2 puff IH Q4H PRN 03/01/16 [History] Metoprolol [Lopressor] 25 mg PO BID #60 tablet 04/14/16 [Rx] Aspirin 81 mg PO DAILY #30 tab.chew 05/20/16 [Rx] Acetaminophen [Tylenol] 500 mg PO Q6H PRN 08/26/16 [History] Primidone [Mysoline] 50 mg PO BID 08/26/16 [History] Calcium Carbonate/Vitamin D3 [Calcium 600-Vit D3 400 Tablet] 1 tab PO BID [History] Theophylline Anhydrous [Curt-24] 100 mg PO DAILY 10/04/16 [History] Docusate [Colace] 100 mg PO BID PRN 11/02/16 [History] Furosemide [Lasix] 20 mg PO DAILY PRN 11/02/16 [History] Potassium Chloride [Klor-Con] 20 meq PO DAILY PRN 11/02/16 [History] Roflumilast [Daliresp] 500 mcg PO DAILY 11/02/16 [History] Buspirone HCl [Buspar] 15 mg PO BID 02/28/17 [History] Famotidine [Pepcid] 20 mg PO DAILY 02/28/17 [History] GuaiFENesin ER [Mucinex] 600 mg PO BID PRN 02/28/17 [History] Ipratropium/Albuterol Neb [Duoneb] 3 ml IH Q6H PRN 02/28/17 [History] Tiotropium [place] [Spiriva Respimat] 2 puff IH DAILY 02/28/17 [History] predniSONE [PredniSONE] 10 mg PO DAILY 02/28/17 [History] 3 Allergy/AdvReac Type Severity Reaction Status Date / Time azithromycin [From Zithromax] AdvReac See Verified 12/06/16 17:31 Comments hydrochlorothiazide AdvReac Difficulty Verified 12/06/16 17:31 Breathing ibuprofen [From Motrin] AdvReac Gastrointestinal Verified 12/06/16 17:31 Upset levofloxacin [From Levaquin] AdvReac See Verified 12/06/16 17:31 Comments Review of Systems - Constitutional no chills - EENT Nose, mouth and throat: no dizziness - Cardiovascular no chest pain - Respiratory as per HPI - Gastrointestinal no abdominal pain - Genitourinary as per HPI - Musculoskeletal no back pain - Integumentary no erythema - Neurological no confusion - Psychiatric no anxiety Exam Initial Vital Signs Temp Pulse Resp BP Pulse Ox 98.0 F 81 22 197/119 99 02/28/17 18:57 02/28/17 18:57 02/28/17 18:57 02/28/17 18:57 02/28/17 18:57 - General physical appearance Present: well developed - Eyes Present: PERRL - ENT Present: normal nares - Respiratory Present: normal respiratory effort - Cardiovascular Cardiovascular exam IM: RRR - Abdomen Abdomen: Present: soft - Genitourinary other (Urine clear in catheter) - Integumentary Present: no rash - Neurologic Present: normal coordination Urology Results - Labs 03/03/17 03:39 03/03/17 03:39 Abnormal lab results RBC 4.13 M/mcL (4.19-5.50) L 03/03/17 03:39 Hgb 12.5 g/dL (12.9-16.9) L 03/03/17 03:39 MCHC 31.4 g/dL (31.6-35.5) L 03/03/17 03:39 Lymphocytes # 0.2 K/mcL (0.6-4.6) L 03/03/17 03:39 Potassium 4.8 mEq/L (3.5-4.5) H 03/03/17 03:39 Carbon Dioxide 30 mEq/L (19-29) H 03/03/17 03:39 Glucose 139 mg/dL (70-99) H 03/03/17 03:39 POC Glucose 107 (58-89) H 03/02/17 20:53 Calcium 7.8 mg/dL (8.6-10.8) L 03/03/17 03:39 Ur Specific [place] 1.028 (1.010-1.025) H 03/01/17 01:15 Diabetes panel 03/03/17 Range/Units 03:39 Sodium 140 (136-145) mEq/L Potassium 4.8 H (3.5-4.5) mEq/L Chloride 104 (98-109) mEq/L Carbon Dioxide 30 H (19-29) mEq/L BUN 19 (8-26) mg/dL Creatinine 0.95 (0.72-1.25) mg/dL Glucose 139 H (70-99) mg/dL Calcium 7.8 L (8.6-10.8) mg/dL Calcium panel 03/03/17 Range/Units 03:39 Calcium 7.8 L (8.6-10.8) mg/dL Phosphorus 2.7 (2.3-4.7) mg/dL Pituitary panel 03/03/17 Range/Units 03:39 Sodium 140 (136-145) mEq/L Potassium 4.8 H (3.5-4.5) mEq/L Chloride 104 (98-109) mEq/L Carbon Dioxide 30 H (19-29) mEq/L BUN 19 (8-26) mg/dL Creatinine 0.95 (0.72-1.25) mg/dL Glucose 139 H (70-99) mg/dL Calcium 7.8 L (8.6-10.8) mg/dL Adrenal panel 03/03/17 Range/Units 03:39 Sodium 140 (136-145) mEq/L Potassium 4.8 H (3.5-4.5) mEq/L Chloride 104 (98-109) mEq/L Carbon Dioxide 30 H (19-29) mEq/L BUN 19 (8-26) mg/dL Creatinine 0.95 (0.72-1.25) mg/dL Glucose 139 H (70-99) mg/dL Calcium 7.8 L (8.6-10.8) mg/dL All other labs normal. Consult Discharge Plan - Plan Referrals: Talita Coffey, POWDER CORE TESTER [Primary Care Provider] -
[2017-03-04] MEDS: Ipratropium/Albuterol Neb 3 ML IH SCH ×4 (03:52→21:37)
[2017-03-04] MEDS: *HR* Heparin 5,000 UNIT/ML VIAL SQ SCH ×2 (05:49→17:00)
[2017-03-04 06:12] LABS: Hematocrit 39.5 % (37.5-50.1); Hemoglobin 12.4 g/dL (12.9-16.9); Immature Granulocytes % 0.4 % (0-4); Lymphocytes # 0.4 K/mcL (0.6-4.6); Lymphocytes % 6.8 %; Mean Corpuscular HGB Conc 31.4 g/dL (31.6-35.5); Mean Corpuscular Hemoglobin 30.5 pg (28.0-33.3); Mean Corpuscular Volume 97.1 fL (83.0-100.0); Mean Platelet Volume 10.4 fL (9.4-12.4); Monocytes # 0.5 K/mcL (0.0-1.3); Monocytes % 8.7 %; Neutrophils # 4.7 K/mcL (1.6-8.9); Platelet Count 153 K/mcL (140-400); Red Blood Count 4.07 M/mcL (4.19-5.50); Red Cell Distribution Width 13.5 % (11.5-14.5); Segmented Neutrophils % 84.1 %
[2017-03-04 06:23] LABS: BUN/Creatinine Ratio 18 (6-26); Blood Urea Nitrogen 18 mg/dL (8-26); Calcium 8.1 mg/dL (8.6-10.8); Carbon Dioxide 29 mEq/L (19-29); Chloride 104 mEq/L (98-109); Glucose 156 mg/dL (70-99); Magnesium 2.1 mg/dL (1.6-2.6); Osmolality,Calculated 295 (280-300); Phosphorous 2.3 mg/dL (2.3-4.7); Potassium 4.3 mEq/L (3.5-4.5); Sodium 140 mEq/L (136-145); eGFR For African Americans > 60 (> 60); eGFR For Non-African Americans > 60 (> 60)
[2017-03-04] MEDS: Cholecalciferol (D-3) 1,000 UNIT TABLET PO SCH (08:21)
[2017-03-04] MEDS: Furosemide 20 MG TABLET PO SCH (08:21)
[2017-03-04] MEDS: Primidone 50 MG TABLET PO SCH ×2 (08:21→20:03)
[2017-03-04] MEDS: Famotidine 20 MG TABLET PO SCH (08:24)
[2017-03-04] MEDS: predniSONE 20 MG TABLET PO SCH (08:37)
[2017-03-04] MEDS: (Roflumilast [Daliresp] 500 MCG) PO SCH (08:37)
[2017-03-04] MEDS: Aspirin 81 MG TAB.CHEW PO SCH (08:37)
[2017-03-04] MEDS: Budesonide/Formoterol 160/4.5 MDI IH SCH ×2 (10:21→21:37)
[2017-03-04] MEDS ORDERED: Benzonatate 100 MG CAPSULE PO PRN (10:21)
--- NOTE | 2017-03-04 10:25 | Internal Med Progress Note ---
Date of Encounter: 03/04/17 Time of Encounter: 10:22 - Assessment and plan (1) Tobacco abuse Current Visit: Yes Status: Chronic Assessment and plan: smoking cessation counseling provided patient refused nicotine replacement therapy (2) Acute exacerbation of chronic obstructive airways disease Current Visit: Yes Status: Acute Assessment and plan: Improved patient is hesitant to be discharged today despite being clinically improved Repeat CXR shows no acute disease Continue current management add tessalonn pearls and flonase Possible discharge home [place] (3) HTN (hypertension) Current Visit: Yes Status: Chronic Assessment and plan: Controlled, continue home meds Qualifiers: Hypertension type: essential hypertension Qualified Code(s): I10 - Essential (primary) hypertension (4) HLD (hyperlipidemia) Current Visit: Yes Status: Chronic Assessment and plan: continue statin therapy Qualifiers: Hyperlipidemia type: unspecified Qualified Code(s): E78.5 - Hyperlipidemia , unspecified (5) Urinary retention Current Visit: Yes Status: Acute Assessment and plan: continue Tamsulosin 0.4mg PO qd Pt unable to void due to which indwelling carrasco cath was placed renal US: No mass, atrophy, or hydronephrosis noted eval noted, for follow up in clinic for voiding trial (6) History of stroke Current Visit: Yes Status: Chronic Assessment and plan: no residual deficits continue asa, statin - Subjective Interval history: Seen and evaluated at bedside No new complains - Constitutional Vitals: Temp Pulse Resp BP Pulse Ox 98.1 F 65 18 152/84 100 03/04/17 06:43 03/04/17 06:43 03/04/17 06:43 03/04/17 06:43 03/04/17 06:43 General appearance: Present: cooperative, A&O X 3, pleasant, no acute distress, answers questions appropriately - Head Head exam: Present: atraumatic, normocephalic - Eye Eye exam: Present: PERRL, conjuntiva pink, sclera anicteric Pupils: Present: PERRL - Neck Neck exam general surgery: Present: supple, trachea midline. Absent: lymphadenopathy - Respiratory Respiratory exam: Present: CTAB. Absent: accessory muscle use, rales, rhonchi, wheezes - Cardiovascular Cardiovascular exam: Present: RRR, +S1, +S2. Absent: diastolic murmur, gallop, rubs, systolic murmur - GI/Abdominal GI/Abdominal exam: Present: normal bowel sounds, soft, no peritoneal signs. Absent: distended, tenderness - Extremities Exam Extremities exam: Present: warm, radial pulses palpable and symmetrical. Absent : calf tenderness, cyanotic, pedal edema - Neurological Exam Neurological exam: Present: alert, CN II-XII intact, oriented X3, no focal deficits. Absent: pronater drift, facial droop, speech deficit - Skin Skin exam: Present: dry, intact Internal Medicine: Result - Labs CBC & Chem 7: 03/04/17 05:39 03/04/17 05:39 Labs: Short CBC 03/04/17 Range/Units 05:39 WBC 5.6 (4.3-11.1) K/mcL Hgb 12.4 L (12.9-16.9) g/dL Hct 39.5 (37.5-50.1) % Plt Count 153 (140-400) K/mcL Neutrophils # 4.7 (1.6-8.9) K/mcL BMP 03/04/17 05:39 Sodium 140 Potassium 4.3 Chloride 104 Carbon Dioxide 29 BUN 18 Creatinine 1.01 Glucose 156 H Calcium 8.1 L - ABG Interpretation ABG results: PT/INR, D-dimer PT 12.1 Seconds (9.4-12.1) 02/28/17 00:36 Consult Discharge Plan - Plan Referrals: Talita Coffey TRIAGE LICENSED PRACTICAL NURSE [Primary Care Provider] - 03/10/17 11:00 am
[2017-03-04] MEDS: Fluticasone Propionate Nasal 50 MCG/SPRAY BOTTLE NS SCH (11:13)
[2017-03-05] MEDS: Ipratropium/Albuterol Neb 3 ML IH SCH ×4 (03:53→20:48)
[2017-03-05] MEDS: *HR* Heparin 5,000 UNIT/ML VIAL SQ SCH ×2 (05:37→16:58)
[2017-03-05] MEDS: Cholecalciferol (D-3) 1,000 UNIT TABLET PO SCH (08:14)
[2017-03-05] MEDS: Aspirin 81 MG TAB.CHEW PO SCH (08:15)
[2017-03-05] MEDS: Furosemide 20 MG TABLET PO SCH (08:15)
[2017-03-05] MEDS: Famotidine 20 MG TABLET PO SCH (08:15)
[2017-03-05] MEDS: Primidone 50 MG TABLET PO SCH ×2 (08:16→20:41)
[2017-03-05] MEDS: predniSONE 20 MG TABLET PO SCH (08:16)
[2017-03-05] MEDS: (Roflumilast [Daliresp] 500 MCG) PO SCH (08:16)
[2017-03-05] MEDS: Fluticasone Propionate Nasal 50 MCG/SPRAY BOTTLE NS SCH (08:24)
[2017-03-05] MEDS: Budesonide/Formoterol 160/4.5 MDI IH SCH ×2 (10:45→20:48)
--- NOTE | 2017-03-05 11:49 | Internal Med Progress Note ---
Date of Encounter: 03/05/17 Time of Encounter: 11:47 - Assessment and plan (1) Tobacco abuse Current Visit: Yes Status: Chronic Assessment and plan: smoking cessation counseling provided patient refused nicotine replacement therapy (2) Acute exacerbation of chronic obstructive airways disease Current Visit: Yes Status: Acute Assessment and plan: Improved patient is hesitant to be discharged today despite being clinically improved Repeat CXR shows no acute disease Continue current management (3) HTN (hypertension) Current Visit: Yes Status: Chronic Assessment and plan: Controlled, continue home meds Qualifiers: Hypertension type: essential hypertension Qualified Code(s): I10 - Essential (primary) hypertension (4) HLD (hyperlipidemia) Current Visit: Yes Status: Chronic Assessment and plan: continue statin therapy Qualifiers: Hyperlipidemia type: unspecified Qualified Code(s): E78.5 - Hyperlipidemia , unspecified (5) Urinary retention Current Visit: Yes Status: Acute Assessment and plan: continue Tamsulosin 0.4mg PO qd Pt unable to void due to which indwelling carrasco cath was placed renal US: No mass, atrophy, or hydronephrosis noted eval noted, for follow up in clinic for voiding trial (6) History of stroke Current Visit: Yes Status: Chronic Assessment and plan: no residual deficits continue asa, statin - Subjective Interval history: Seen and evaluated at bedside No new complains - Constitutional Vitals: Temp Pulse Resp BP Pulse Ox 98.4 F 83 16 130/84 94 03/05/17 10:59 03/05/17 10:59 03/05/17 10:59 03/05/17 10:59 03/05/17 10:59 General appearance: Present: cooperative, A&O X 3, pleasant, no acute distress, answers questions appropriately - Head Head exam: Present: atraumatic, normocephalic - Eye Eye exam: Present: PERRL, conjuntiva pink, sclera anicteric Pupils: Present: PERRL - Neck Neck exam general surgery: Present: supple, trachea midline. Absent: lymphadenopathy - Respiratory Respiratory exam: Present: CTAB. Absent: accessory muscle use, rales, rhonchi, wheezes - Cardiovascular Cardiovascular exam: Present: RRR, +S1, +S2. Absent: diastolic murmur, gallop, rubs, systolic murmur - GI/Abdominal GI/Abdominal exam: Present: normal bowel sounds, soft, no peritoneal signs. Absent: distended, tenderness - Extremities Exam Extremities exam: Present: warm, radial pulses palpable and symmetrical. Absent : calf tenderness, cyanotic, pedal edema - Neurological Exam Neurological exam: Present: alert, CN II-XII intact, oriented X3, no focal deficits. Absent: pronater drift, facial droop, speech deficit - Skin Skin exam: Present: dry, intact Internal Medicine: Result - Labs CBC & Chem 7: 03/04/17 05:39 03/04/17 05:39 - ABG Interpretation ABG results: PT/INR, D-dimer PT 12.1 Seconds (9.4-12.1) 02/28/17 00:36 Consult Discharge Plan - Plan Referrals: Talita Coffey FREIGHT BROKER AGENT [Primary Care Provider] - 03/10/17 11:00 am
[2017-03-06] MEDS: Ipratropium/Albuterol Neb 3 ML IH SCH ×4 (03:24→22:12)
[2017-03-06] MEDS: *HR* Heparin 5,000 UNIT/ML VIAL SQ SCH ×2 (05:12→16:50)
[2017-03-06] MEDS: Fluticasone Propionate Nasal 50 MCG/SPRAY BOTTLE NS SCH (07:28)
[2017-03-06] MEDS: Primidone 50 MG TABLET PO SCH ×2 (07:28→19:46)
[2017-03-06] MEDS: Aspirin 81 MG TAB.CHEW PO SCH (07:28)
[2017-03-06] MEDS: Cholecalciferol (D-3) 1,000 UNIT TABLET PO SCH (07:28)
[2017-03-06] MEDS: Famotidine 20 MG TABLET PO SCH (07:29)
[2017-03-06] MEDS: Furosemide 20 MG TABLET PO SCH (07:29)
[2017-03-06] MEDS: (Roflumilast [Daliresp] 500 MCG) PO SCH (07:29)
[2017-03-06] MEDS: Budesonide/Formoterol 160/4.5 MDI IH SCH ×2 (08:27→22:13)
[2017-03-06 08:31] LABS: Basophils % 0.3 %; Eosinophils % 0.4 %; Hematocrit 43.4 % (37.5-50.1); Hemoglobin 13.6 g/dL (12.9-16.9); Immature Granulocytes % 0.1 % (0-4); Lymphocytes # 0.5 K/mcL (0.6-4.6); Lymphocytes % 6.1 %; Mean Corpuscular HGB Conc 31.3 g/dL (31.6-35.5); Mean Corpuscular Hemoglobin 30.4 pg (28.0-33.3); Mean Corpuscular Volume 97.1 fL (83.0-100.0); Mean Platelet Volume 10.1 fL (9.4-12.4); Monocytes # 0.8 K/mcL (0.0-1.3); Monocytes % 10.9 %; Platelet Count 142 K/mcL (140-400); Red Blood Count 4.47 M/mcL (4.19-5.50); Red Cell Distribution Width 13.8 % (11.5-14.5); Segmented Neutrophils % 82.2 %
[2017-03-06 08:44] LABS: Alanine Aminotransferase 22 Units/L (0-55); Albumin 2.8 g/dL (3.5-5.0); Albumin/Globulin Ratio 0.9 (1.1-2.2); Alkaline Phosphatase 60 Units/L (38-126); Aspartate Amino Transferase 19 Units/L (5-34); BUN/Creatinine Ratio 14 (6-26); Bilirubin,Total 0.3 mg/dL (0.2-1.2); Blood Urea Nitrogen 14 mg/dL (8-26); Calcium 8.3 mg/dL (8.6-10.8); Carbon Dioxide 33 mEq/L (19-29); Chloride 97 mEq/L (98-109); Glucose 102 mg/dL (70-99); Osmolality,Calculated 283 (280-300); Potassium 4.5 mEq/L (3.5-4.5); Sodium 136 mEq/L (136-145); Total Protein 5.8 g/dL (6.0-8.3); eGFR For African Americans > 60 (> 60); eGFR For Non-African Americans > 60 (> 60)
--- NOTE | 2017-03-06 09:46 | Internal Med Progress Note ---
Date of Encounter: 03/06/17 Time of Encounter: 09:42 - Assessment and plan (1) Influenza A Current Visit: Yes Status: Acute Assessment and plan: Tamiflu 03/25 Supportive care (2) Tobacco abuse Current Visit: Yes Status: Chronic Assessment and plan: smoking cessation counseling provided patient refused nicotine replacement therapy (3) Acute exacerbation of chronic obstructive airways disease Current Visit: Yes Status: Acute Assessment and plan: Improved Repeat CXR 03/04 shows no acute disease Now has influenza, nit wheezing this morning Donebs prn Has completed his course of steroids Continue current management (4) HTN (hypertension) Current Visit: Yes Status: Chronic Assessment and plan: Controlled, continue home meds Qualifiers: Hypertension type: essential hypertension Qualified Code(s): I10 - Essential (primary) hypertension (5) HLD (hyperlipidemia) Current Visit: Yes Status: Chronic Assessment and plan: continue statin therapy Qualifiers: Hyperlipidemia type: unspecified Qualified Code(s): E78.5 - Hyperlipidemia , unspecified (6) Urinary retention Current Visit: Yes Status: Acute Assessment and plan: continue Tamsulosin 0.4mg PO qd Pt unable to void due to which indwelling carrasco cath was placed renal US: No mass, atrophy, or hydronephrosis noted eval noted, for follow up in clinic for voiding trial (7) History of stroke Current Visit: Yes Status: Chronic Assessment and plan: no residual deficits continue asa, statin - Subjective Interval history: Seen and evaluated at bedside Admitted for COPDE which has moslty resolved and patient completed therapy He developed high grade fevers this morning, sepsis work up sent Patient does not meet criteria Blood culture sent and pending Urine analysis and Urine culture ordered CXR not repeated, normal 03/04 Influenza A positive, will start Tamiflu 75 mg bid - Constitutional Vitals: Temp Pulse Resp BP Pulse Ox 100.2 F H 85 15 139/76 91 03/06/17 07:28 03/06/17 07:28 03/06/17 07:28 03/06/17 07:28 03/06/17 07:28 General appearance: Present: cooperative, A&O X 3, pleasant, no acute distress, answers questions appropriately - Head Head exam: Present: atraumatic, normocephalic - Eye Eye exam: Present: PERRL, conjuntiva pink, sclera anicteric Pupils: Present: PERRL - Neck Neck exam general surgery: Present: supple, trachea midline. Absent: lymphadenopathy - Respiratory Respiratory exam: Present: CTAB. Absent: accessory muscle use, rales, rhonchi, wheezes - Cardiovascular Cardiovascular exam: Present: RRR, +S1, +S2. Absent: diastolic murmur, gallop, rubs, systolic murmur - GI/Abdominal GI/Abdominal exam: Present: normal bowel sounds, soft, no peritoneal signs. Absent: distended, tenderness - Extremities Exam Extremities exam: Present: warm, radial pulses palpable and symmetrical. Absent : calf tenderness, cyanotic, pedal edema - Neurological Exam Neurological exam: Present: alert, CN II-XII intact, oriented X3, no focal deficits. Absent: pronater drift, facial droop, speech deficit - Skin Skin exam: Present: dry, intact Internal Medicine: Result - Labs CBC & Chem 7: 03/06/17 08:19 03/06/17 08:19 Labs: Short CBC 03/06/17 Range/Units 08:19 WBC 7.4 (4.3-11.1) K/mcL Hgb 13.6 (12.9-16.9) g/dL Hct 43.4 (37.5-50.1) % Plt Count 142 (140-400) K/mcL Neutrophils # 6.0 (1.6-8.9) K/mcL BMP 03/06/17 08:19 Sodium 136 Potassium 4.5 Chloride 97 L Carbon Dioxide 33 H BUN 14 Creatinine 1.00 Glucose 102 H Calcium 8.3 L Liver Function 03/06/17 Range/Units 08:19 Total Bilirubin 0.3 (0.2-1.2) mg/dL AST 19 (5-34) Units/L ALT 22 (0-55) Units/L Alkaline Phosphatase 60 (38-126) Units/L Albumin 2.8 L (3.5-5.0) g/dL - ABG Interpretation ABG results: PT/INR, D-dimer PT 12.1 Seconds (9.4-12.1) 02/28/17 00:36 Consult Discharge Plan - Plan Referrals: Talita Coffey, VICE PRESIDENT [employer] [Primary Care Provider] - 03/10/17 11:00 am
[2017-03-06 10:37] LABS: Bilirubin,Urine Negative (Negative); Blood,Urine Moderate (Negative); Clarity,Urine Clear (Clear); Color,Urine Yellow (Yellow); Glucose,Urine (UA) Normal (Normal); Ketones,Urine Negative (Negative); Leukocyte Esterase,Urine Negative (Negative); Nitrite,Urine Negative (Negative); PH,Urine 6.5 pH Units (5.0-8.0); Protein,Urine Negative (Neg-Trace); Specific Gravity,Urine 1.013 (1.010-1.025); Urobilinogen,Urine Normal (Normal)
[2017-03-06 10:39] LABS: Bacteria,Urine None Seen per hpf (None-Few); Hyaline Casts,Urine None Seen per lpf (None-Few); Squamous Epithelial Cell,Urine None Seen per lpf (None-Few); WBC,Urine 0-3 per hpf (0-3)
[2017-03-06] MEDS: Acetaminophen 325 MG TABLET PO PRN ×2 (15:39→23:53)
[2017-03-07] MEDS: Ipratropium/Albuterol Neb 3 ML IH SCH ×4 (04:06→21:24)
[2017-03-07] MEDS: *HR* Heparin 5,000 UNIT/ML VIAL SQ SCH ×2 (05:26→17:24)
[2017-03-07 08:18] LABS: Basophils % 0.4 %; Eosinophils % 0.8 %; Hematocrit 46.4 % (37.5-50.1); Hemoglobin 14.5 g/dL (12.9-16.9); Immature Granulocytes % 0.2 % (0-4); Lymphocytes # 0.3 K/mcL (0.6-4.6); Lymphocytes % 6.1 %; Mean Corpuscular HGB Conc 31.3 g/dL (31.6-35.5); Mean Corpuscular Hemoglobin 30.4 pg (28.0-33.3); Mean Corpuscular Volume 97.3 fL (83.0-100.0); Mean Platelet Volume 10.7 fL (9.4-12.4); Monocytes # 0.5 K/mcL (0.0-1.3); Monocytes % 10.4 %; Neutrophils # 4.2 K/mcL (1.6-8.9); Platelet Count 138 K/mcL (140-400); Red Blood Count 4.77 M/mcL (4.19-5.50); Red Cell Distribution Width 13.6 % (11.5-14.5); Segmented Neutrophils % 82.1 %
[2017-03-07 08:22] LABS: BUN/Creatinine Ratio 17 (6-26); Blood Urea Nitrogen 18 mg/dL (8-26); Calcium 8.8 mg/dL (8.6-10.8); Carbon Dioxide 37 mEq/L (19-29); Chloride 90 mEq/L (98-109); Glucose 119 mg/dL (70-99); Osmolality,Calculated 281 (280-300); Potassium 4.4 mEq/L (3.5-4.5); Sodium 134 mEq/L (136-145); eGFR For African Americans > 60 (> 60); eGFR For Non-African Americans > 60 (> 60)
[2017-03-07] MEDS: Primidone 50 MG TABLET PO SCH ×2 (09:07→19:48)
[2017-03-07] MEDS: Acetaminophen 325 MG TABLET PO PRN ×2 (09:08→17:24)
[2017-03-07] MEDS: Aspirin 81 MG TAB.CHEW PO SCH (09:08)
[2017-03-07] MEDS: Cholecalciferol (D-3) 1,000 UNIT TABLET PO SCH (09:08)
[2017-03-07] MEDS: Famotidine 20 MG TABLET PO SCH (09:08)
[2017-03-07] MEDS: Furosemide 20 MG TABLET PO SCH (09:09)
[2017-03-07] MEDS: Fluticasone Propionate Nasal 50 MCG/SPRAY BOTTLE NS SCH (09:11)
[2017-03-07] MEDS: Budesonide/Formoterol 160/4.5 MDI IH SCH ×2 (10:56→21:24)
[2017-03-07] MEDS: (Roflumilast [Daliresp] 500 MCG) PO SCH (11:56)
--- NOTE | 2017-03-07 14:45 | Internal Med Progress Note ---
Date of Encounter: 03/07/17 Time of Encounter: 14:45 - Assessment and plan (1) Influenza A Current Visit: Yes Status: Acute Assessment and plan: Tamiflu 2/5 Supportive care (2) Tobacco abuse Current Visit: Yes Status: Chronic Assessment and plan: smoking cessation counseling provided patient refused nicotine replacement therapy (3) Acute exacerbation of chronic obstructive airways disease Current Visit: Yes Status: Acute Assessment and plan: Improved Repeat CXR 03/04 shows no acute disease Now has influenza, nit wheezing this morning Donebs prn Has completed his course of steroids Continue current management (4) HTN (hypertension) Current Visit: Yes Status: Chronic Assessment and plan: Controlled, continue home meds Qualifiers: Hypertension type: essential hypertension Qualified Code(s): I10 - Essential (primary) hypertension (5) HLD (hyperlipidemia) Current Visit: Yes Status: Chronic Assessment and plan: continue statin therapy Qualifiers: Hyperlipidemia type: unspecified Qualified Code(s): E78.5 - Hyperlipidemia , unspecified (6) Urinary retention Current Visit: Yes Status: Acute Assessment and plan: continue Tamsulosin 0.4mg PO qd Pt unable to void due to which indwelling carrasco cath was placed renal US: No mass, atrophy, or hydronephrosis noted eval noted, for follow up in clinic for voiding trial (7) History of stroke Current Visit: Yes Status: Chronic Assessment and plan: no residual deficits continue asa, statin - Subjective Interval history: Seen and evaluated at bedside Admitted for COPDE which has moslty resolved and patient completed therapy He developed high grade fevers 03/06, sepsis work up negative till date Patient does not meet sepsis criteria Blood culture sent and pending Urine analysis and Urine culture ordered CXR not repeatedX2 normal Influenza A positive, continue Tamiflu 75 mg bid He has no new complains today, he is very anxious at baseline - Constitutional Vitals: Temp Pulse Resp BP Pulse Ox 99.2 F 71 16 103/66 98 03/07/17 11:15 03/07/17 11:15 03/07/17 11:15 03/07/17 11:15 03/07/17 11:15 General appearance: Present: cooperative, A&O X 3, pleasant, no acute distress, answers questions appropriately - Head Head exam: Present: atraumatic, normocephalic - Eye Eye exam: Present: PERRL, conjuntiva pink, sclera anicteric Pupils: Present: PERRL - Neck Neck exam general surgery: Present: supple, trachea midline. Absent: lymphadenopathy - Respiratory Respiratory exam: Present: CTAB. Absent: accessory muscle use, rales, rhonchi, wheezes - Cardiovascular Cardiovascular exam: Present: RRR, +S1, +S2. Absent: diastolic murmur, gallop, rubs, systolic murmur - GI/Abdominal GI/Abdominal exam: Present: normal bowel sounds, soft, no peritoneal signs. Absent: distended, tenderness - Extremities Exam Extremities exam: Present: warm, radial pulses palpable and symmetrical. Absent : calf tenderness, cyanotic, pedal edema - Neurological Exam Neurological exam: Present: alert, CN II-XII intact, oriented X3, no focal deficits. Absent: pronater drift, facial droop, speech deficit - Skin Skin exam: Present: dry, intact Internal Medicine: Result - Labs CBC & Chem 7: 03/07/17 06:19 03/07/17 06:19 Labs: Short CBC 03/07/17 Range/Units 06:19 WBC 5.1 (4.3-11.1) K/mcL Hgb 14.5 (12.9-16.9) g/dL Hct 46.4 (37.5-50.1) % Plt Count 138 L (140-400) K/mcL Neutrophils # 4.2 (1.6-8.9) K/mcL BMP 03/07/17 06:19 Sodium 134 L Potassium 4.4 Chloride 90 L Carbon Dioxide 37 H BUN 18 Creatinine 1.07 Glucose 119 H Calcium 8.8 - ABG Interpretation ABG results: PT/INR, D-dimer PT 12.1 Seconds (9.4-12.1) 02/28/17 00:36 - Impressions Impressions Chest X-Ray 03/07/17 08:05 IMPRESSION: Mild bibasilar atelectasis. D/ / 03/07/2017 09:01:29 Oliver Snow MD / benji Interpreting Provider: Oliver Snow MD Consult Discharge Plan - Plan Referrals: Talita Coffey, INFORMATION CLERK [Primary Care Provider] - 03/10/17 11:00 am
[2017-03-08] MEDS: Ipratropium/Albuterol Neb 3 ML IH SCH ×4 (04:13→22:08)
[2017-03-08] MEDS: *HR* Heparin 5,000 UNIT/ML VIAL SQ SCH ×2 (05:51→18:06)
[2017-03-08] MEDS: Furosemide 20 MG TABLET PO SCH (08:02)
[2017-03-08] MEDS: Primidone 50 MG TABLET PO SCH ×2 (08:03→20:24)
[2017-03-08] MEDS: Aspirin 81 MG TAB.CHEW PO SCH (08:03)
[2017-03-08] MEDS: Famotidine 20 MG TABLET PO SCH (08:03)
[2017-03-08] MEDS: Cholecalciferol (D-3) 1,000 UNIT TABLET PO SCH (08:03)
[2017-03-08] MEDS: (Roflumilast [Daliresp] 500 MCG) PO SCH (08:04)
[2017-03-08] MEDS: Fluticasone Propionate Nasal 50 MCG/SPRAY BOTTLE NS SCH (08:04)
[2017-03-08] MEDS: Budesonide/Formoterol 160/4.5 MDI IH SCH ×2 (10:30→22:07)
--- NOTE | 2017-03-08 18:10 | Internal Med Progress Note ---
Date of Encounter: 03/08/17 Time of Encounter: 14:25 - Assessment and plan (1) Tobacco abuse Current Visit: Yes Status: Chronic Assessment and plan: smoking cessation counseling provided patient refused nicotine replacement therapy Patient states he does not want nicotine patches for discharge. (2) HTN (hypertension) Current Visit: Yes Status: Chronic Assessment and plan: Controlled, continue home meds. Follow with primary care for any necessary adjustments modifications. Qualifiers: Hypertension type: essential hypertension Qualified Code(s): I10 - Essential (primary) hypertension (3) HLD (hyperlipidemia) Current Visit: Yes Status: Chronic Assessment and plan: Chronic. Continue home medications. Qualifiers: Hyperlipidemia type: unspecified Qualified Code(s): E78.5 - Hyperlipidemia , unspecified (4) History of stroke Current Visit: Yes Status: Chronic Assessment and plan: Prior history of CVA. No residual deficits. Continue aspirin and statin. (5) COPD exacerbation Current Visit: Yes Status: Acute Assessment and plan: Patient appears to be in no distress. Lungs are clear and diminished throughout. He is not requiring subtotal oxygen. Repeat chest x-ray on 12:15 shows no acute disease. Continue duo nebs as needed Patient continued his course of steroids prior to today. Patient will be discharged tomorrow. No need for steroids or antibiotics on discharge. He will continue his normal home medications. (6) Urinary retention Current Visit: Yes Status: Acute Assessment and plan: Patient was unable to void. Arguelles was placed. He is expecting it to be removed today in the office, however he was still admitted. He has been placed on stimulus and 0.4 mg by mouth daily. Patient had a renal ultrasound with no mass, no atrophy, no hydronephrosis or hydroureter noted. Patient will follow up in the office for Arguelles removal and voiding trial. (7) Influenza A Current Visit: Yes Status: Acute Assessment and plan: Tamiflu 5/10 Supportive care. In no distress. There is no wheezing, rhonchi, rails, productive cough. Patient is stable for discharge tomorrow. He will continue Tamiflu and supportive treatment at home. - Time Spent With Patient less than 15 minutes - Subjective Interval history: Patient was seen and assessed at 1425. He is sitting up in the bedside chair. He is in no distress. I suggested patient go home today, he became anxious and stated that he needed to go home tomorrow. He came up with multiple barriers to his discharge. He denies headache, blurred vision, neck pain, nausea vomiting or diarrhea, abdominal pain. We discussed him preparing for discharge tomorrow. - Constitutional Vitals: Temp Pulse Resp BP Pulse Ox 98.5 F 86 16 132/87 98 03/08/17 15:02 03/08/17 15:02 03/08/17 15:18 03/08/17 15:02 03/08/17 15:18 General appearance: Present: cooperative, A&O X 3, pleasant, no acute distress, answers questions appropriately - Head Head exam: Present: atraumatic, normal inspection, normocephalic - Eye Eye exam: Present: normal appearance, conjuntiva pink, sclera anicteric - Neck Neck exam general surgery: Present: normal inspection, supple, trachea midline. Absent: lymphadenopathy, tenderness - Respiratory Respiratory exam: Present: CTAB. Absent: accessory muscle use, chest wall tenderness, decreased breath sounds, prolonged expiratory phase, rales, rhonchi , stridor, wheezes - Cardiovascular Cardiovascular exam: Present: RRR, +S1, +S2. Absent: diastolic murmur, gallop, rubs, systolic murmur - GI/Abdominal GI/Abdominal exam: Present: normal bowel sounds, soft, no peritoneal signs. Absent: distended, hepatomegaly, tenderness - Extremities Exam Extremities exam: Present: warm, radial pulses palpable and symmetrical. Absent : calf tenderness, cyanotic, pedal edema - Neurological Exam Neurological exam: Present: alert, oriented X3, no focal deficits, strengths equal and symetr throughout, pronater drift. Absent: facial droop, speech deficit - Skin Skin exam: Present: dry, intact, normal color, warm. Absent: rash Internal Medicine: Result - Labs CBC & Chem 7: 03/07/17 06:19 03/07/17 06:19 - ABG Interpretation ABG results: PT/INR, D-dimer PT 12.1 Seconds (9.4-12.1) 02/28/17 00:36 Consult Discharge Plan - Plan Referrals: Talita Coffey, CHINCHILLA FARMER [Primary Care Provider] - 03/10/17 11:00 am
[2017-03-09] MEDS: Ipratropium/Albuterol Neb 3 ML IH SCH ×4 (04:30→21:36)
[2017-03-09] MEDS: *HR* Heparin 5,000 UNIT/ML VIAL SQ SCH ×2 (05:04→17:49)
[2017-03-09] MEDS: Fluticasone Propionate Nasal 50 MCG/SPRAY BOTTLE NS SCH (08:53)
[2017-03-09] MEDS: Famotidine 20 MG TABLET PO SCH (08:54)
[2017-03-09] MEDS: Primidone 50 MG TABLET PO SCH ×2 (08:54→20:59)
[2017-03-09] MEDS: Furosemide 20 MG TABLET PO SCH (08:54)
[2017-03-09] MEDS: Cholecalciferol (D-3) 1,000 UNIT TABLET PO SCH (08:54)
[2017-03-09] MEDS: Aspirin 81 MG TAB.CHEW PO SCH (08:54)
[2017-03-09] MEDS: (Roflumilast [Daliresp] 500 MCG) PO SCH (08:55)
[2017-03-09] MEDS: Budesonide/Formoterol 160/4.5 MDI IH SCH ×2 (10:26→21:36)
--- NOTE | 2017-03-09 17:36 | Internal Med Progress Note ---
Date of Encounter: 03/09/17 Time of Encounter: 08:55 - Assessment and plan (1) Tobacco abuse Current Visit: Yes Status: Chronic Assessment and plan: Patient continues to nicotine replacement therapy Patient states he does not want nicotine patches for discharge. States he has doing well on his own. (2) HTN (hypertension) Current Visit: Yes Status: Chronic Assessment and plan: Well-controlled in the hospital. Continue home meds. Continue monitor vital signs per orders. Qualifiers: Hypertension type: essential hypertension Qualified Code(s): I10 - Essential (primary) hypertension (3) HLD (hyperlipidemia) Current Visit: Yes Status: Chronic Assessment and plan: Chronic. Continue home medications. Qualifiers: Hyperlipidemia type: unspecified Qualified Code(s): E78.5 - Hyperlipidemia , unspecified (4) History of stroke Current Visit: Yes Status: Chronic Assessment and plan: Prior history of CVA. No residual deficits. Continue aspirin and statin. (5) COPD exacerbation Current Visit: Yes Status: Acute Assessment and plan: Patient appears to be in no distress. Lungs are clear and diminished throughout. He is requiring supplemental oxygen. Repeat chest x-ray on 03/04 shows no acute disease. Continue duo nebs as needed Patient no longer receiving steroids. No need for steroids or antibiotics on discharge. He will continue his normal home medications. (6) Urinary retention Current Visit: Yes Status: Acute Assessment and plan: Patient was unable to void. Arguelles was placed. He is expecting it to be removed today in the office, however he was still admitted. He has been placed on Tamulosin 0.4 mg by mouth daily. Patient had a renal ultrasound with no mass, no atrophy, no hydronephrosis or hydroureter noted. Patient will follow up in the office for Arguelles removal and voiding trial. (7) Influenza A Current Visit: Yes Status: Acute Assessment and plan: Tamiflu 09/27 Supportive care. In no distress. There is no wheezing, rhonchi, rails, productive cough. Patient is stable for discharge when accepted at [facility]. He will continue Tamiflu and supportive treatment. - Time Spent With Patient less than 15 minutes - Subjective Interval history: Patient was seen and assessed at 0855. He is sitting up in the bedside chair. He is in no distress. Patient reports that he is weak and unable to walk today. He came up with multiple barriers to his discharge again today. He denies headache, blurred vision, neck pain, nausea vomiting or diarrhea, abdominal pain. We discussed him preparing for discharge tomorrow. He was evaluated by physical therapy today. They have recommended SNF rehabilitation. Patient is agreeable. public health social worker is on board. Patient would like to go to the [facility]. - Constitutional Vitals: Temp Pulse Resp BP Pulse Ox 98.2 F 89 18 123/80 98 03/09/17 15:53 03/09/17 15:53 03/09/17 15:53 03/09/17 15:53 03/09/17 15:53 General appearance: Present: cooperative, A&O X 3, pleasant, no acute distress, answers questions appropriately - Head Head exam: Present: atraumatic, normocephalic - Eye Eye exam: Present: PERRL, conjuntiva pink, sclera anicteric Pupils: Present: PERRL - Neck Neck exam general surgery: Present: supple, trachea midline. Absent: lymphadenopathy, tenderness - Respiratory Respiratory exam: Present: CTAB, rhonchi. Absent: accessory muscle use, chest wall tenderness, rales, respiratory distress, wheezes - Cardiovascular Cardiovascular exam: Present: RRR, +S1, +S2. Absent: diastolic murmur, gallop, rubs, systolic murmur - GI/Abdominal GI/Abdominal exam: Present: normal bowel sounds, soft, no peritoneal signs. Absent: distended, hepatomegaly, tenderness - Extremities Exam Extremities exam: Present: warm, radial pulses palpable and symmetrical. Absent : calf tenderness, cyanotic, pedal edema - Neurological Exam Neurological exam: Present: alert, oriented X3, no focal deficits. Absent: facial droop, speech deficit - Skin Skin exam: Present: dry, intact, normal color, warm. Absent: petechiae Internal Medicine: Result - Labs CBC & Chem 7: 03/07/17 06:19 03/07/17 06:19 - ABG Interpretation ABG results: PT/INR, D-dimer PT 12.1 Seconds (9.4-12.1) 02/28/17 00:36 Consult Discharge Plan - Plan Referrals: Talita Coffey, AUTOMOTIVE GLASS TECHNICIAN [Primary Care Provider] - 03/10/17 11:00 am
[2017-03-10] MEDS: Ipratropium/Albuterol Neb 3 ML IH SCH ×3 (04:22→16:06)
[2017-03-10] MEDS: *HR* Heparin 5,000 UNIT/ML VIAL SQ SCH (05:50)
[2017-03-10] MEDS ORDERED: Nitrofurantoin (BID) 100 MG CAPSULE PO SCH (08:00)
[2017-03-10] MEDS: Furosemide 20 MG TABLET PO SCH (08:54)
[2017-03-10] MEDS: Cholecalciferol (D-3) 1,000 UNIT TABLET PO SCH (08:56)
[2017-03-10] MEDS: Primidone 50 MG TABLET PO SCH (08:56)
[2017-03-10] MEDS: Famotidine 20 MG TABLET PO SCH (08:57)
[2017-03-10] MEDS: Aspirin 81 MG TAB.CHEW PO SCH (08:57)
[2017-03-10 10:28] VITALS: BP 142/88
[2017-03-10] MEDS: (Roflumilast [Daliresp] 500 MCG) PO SCH (10:53)
[2017-03-10] MEDS: Budesonide/Formoterol 160/4.5 MDI IH SCH (11:29)
--- NOTE | 2017-03-10 13:12 | Discharge Summary ---
Date of Encounter: 03/10/17 Time of Encounter: 10:15 - Discharge Diagnosis (1) COPD exacerbation Priority: Primary Status: Acute Comments: Patient appears to be in no distress. Lungs are clear and diminished throughout with some ronchi in the anterior inferior lung garcia. He is requiring supplemental oxygen. Repeat chest x-ray on 03/04 shows no acute disease. Continue duo nebs as needed at [facility]. Patient no longer receiving steroids. No need for steroids or antibiotics on discharge. He will continue his normal home medications. (2) Urinary retention Priority: Secondary Status: Acute Comments: His Arguelles catheter placed, he missed her appointment with urology for voiding trial. Arguelles was removed yesterday patient is voiding normally. (3) Tobacco abuse Priority: Secondary Status: Chronic Comments: Patient has had no nicotine replacement therapy since he has been here. He declines need for nicotine patches on discharge. (4) HTN (hypertension) Priority: Secondary Status: Chronic Comments: Chronic. Continue home medications. Qualifiers: Hypertension type: essential hypertension Qualified Code(s): I10 - Essential (primary) hypertension (5) HLD (hyperlipidemia) Priority: Secondary Status: Chronic Comments: Chronic. Continue home medications. Qualifiers: Hyperlipidemia type: unspecified Qualified Code(s): E78.5 - Hyperlipidemia , unspecified (6) History of stroke Priority: Secondary Status: Chronic Comments: Prior history of CVA. No residual deficits. Continue ASA and Statin. (7) Influenza A Priority: Secondary Status: Acute Comments: Supportive treatment. Patient has received 9/10 doses. Last dose will be tonight. (8) UTI (urinary tract infection) due to Enterococcus Priority: Secondary Status: Acute Comments: Positive UTI. Urine culture. Bacteria is enterococcus faecalis, pt has started Macrobid 100mg po bid. Continue at discharge. - Discharge Medications Prescriptions: Nitrofurantoin (BID) [Macrobid] 100 mg PO BIDWM #20 capsule Oseltamivir [Tamiflu] 75 mg PO BID #1 capsule Home Medications: Lovastatin [Mevacor] 40 mg PO HS 01/25/16 [History] Mometasone/Formoterol [Dulera 200 Mcg/5 Mcg Inhaler] 2 puff IH BID 01/25/16 [ History] Albuterol Sulfate [Albuterol Inhaler] 2 puff IH Q4H PRN 12/12/16 [History] Metoprolol [Lopressor] 25 mg PO BID #60 tablet 04/14/16 [Rx] Aspirin 81 mg PO DAILY #30 tab.chew 05/20/16 [Rx] Acetaminophen [Tylenol] 500 mg PO Q6H PRN 08/26/16 [History] Primidone [Mysoline] 50 mg PO BID 08/26/16 [History] Calcium Carbonate/Vitamin D3 [Calcium 600-Vit D3 400 Tablet] 1 tab PO BID [History] Theophylline Anhydrous [Curt-24] 100 mg PO DAILY 10/04/16 [History] Docusate [Colace] 100 mg PO BID PRN 11/02/16 [History] Furosemide [Lasix] 20 mg PO DAILY PRN 11/02/16 [History] Potassium Chloride [Klor-Con] 20 meq PO DAILY PRN 11/02/16 [History] Roflumilast [Daliresp] 500 mcg PO DAILY 11/02/16 [History] Buspirone HCl [Buspar] 15 mg PO BID 02/28/17 [History] Famotidine [Pepcid] 20 mg PO DAILY 02/28/17 [History] GuaiFENesin ER [Mucinex] 600 mg PO BID PRN 02/28/17 [History] Ipratropium/Albuterol Neb [Duoneb] 3 ml IH Q6H PRN 02/28/17 [History] Tiotropium Cambria [Spiriva Respimat] 2 puff IH DAILY 02/28/17 [History] predniSONE [PredniSONE] 10 mg PO DAILY 02/28/17 [History] Nitrofurantoin (BID) [Macrobid] 100 mg PO BIDWM #20 capsule 03/10/17 [Rx] Oseltamivir [Tamiflu] 75 mg PO BID #1 capsule 03/10/17 [Rx] Allergies/Adverse Reactions: 3 Allergy/AdvReac Type Severity Reaction Status Date / Time azithromycin [From Zithromax] AdvReac See Verified 12/06/16 17:31 Comments hydrochlorothiazide AdvReac Difficulty Verified 12/06/16 17:31 Breathing ibuprofen [From Motrin] AdvReac Gastrointestinal Verified 12/06/16 17:31 Upset levofloxacin [From Levaquin] AdvReac See Verified 12/06/16 17:31 Comments Date of admission: 02/28/17 21:38 Primary care physician: Talita Coffey CNP Consults: 03/02/17 08:37 Consult to Urology [CONS] Routine Consulting Provider: Nelson Hernandez Reason for Consult: urinary retention Call Completed: Yes 03/08/17 15:44 Consult to Physical Therapy [CONS] Routine Comment: Evaluate, develop and implement POC Reason for Consult: Evaluation OT [Consult to Occupational Therapy] [CONS] Routine Comment: Evaluate, develop and implement POC Reason for Consult: Evaluation Discharging clinician: Almaz Cohen Anticipated date of discharge: 03/10/17 - Patient Status Disposition: Transfer SNF Condition: Good Functional capacity at discharge: uses cane/walker Overall status at discharge: patient is progressing back to baseline - Discharge Instructions Follow Up With: Talita Coffey CNP [Primary Care Provider] - 03/10/17 11:00 am - Diet and Activity Activity: as per physical therapy Diet: advance to your usual diet Hospital course: Mr. Steven is a 66 year old male with prior history of COPD, hypertension, hyperlipidemia. Patient presents with shortness of breath and cough. Diagnosed with the flu. He has completed 9/10 doses of Tamiflu. Last dose will be tonight. He is being treated for COPD exacerbation, there are no antibiotics or steroids needed at this time. Patient is not using supplemental oxygen above his normal baseline of 2 L. Patient is also being treated for urinary tract infection, patient had a Arguelles for urinary retention, and his been discontinued and patient is voiding normally. He is being sent to the [facility] with a prescription for Macrobid 100 mg by mouth twice a day 7 days. He will need to follow up with primary care and urology. His labs are stable, vitals are stable and within normal limits. Patient is stable and ready for discharge. - Time Spent with Patient Total time spent providing and/or coordinating discharge services: Less than 30 minutes - Constitutional Vitals: Temp Pulse Resp BP Pulse Ox 98.0 F 71 18 142/88 97 03/10/17 10:27 03/10/17 10:27 03/10/17 11:33 03/10/17 10:27 03/10/17 11:33 General appearance: Present: cooperative, A&O X 3, pleasant, no acute distress, answers questions appropriately - Head Head exam: Present: atraumatic, normal inspection, normocephalic - Eye Eye exam: Present: conjuntiva pink, sclera anicteric - Neck Neck exam general surgery: Present: supple, trachea midline. Absent: lymphadenopathy - Respiratory Respiratory exam: Present: decreased breath sounds, CTAB, rhonchi, wheezes. Absent: accessory muscle use, chest wall tenderness, rales - Cardiovascular Cardiovascular exam: Present: RRR, +S1, +S2. Absent: diastolic murmur, gallop, rubs, systolic murmur - GI/Abdominal GI/Abdominal exam: Present: normal bowel sounds, soft, no peritoneal signs. Absent: distended, tenderness - Extremities Exam Extremities exam: Present: warm, radial pulses palpable and symmetrical. Absent : calf tenderness, cyanotic, pedal edema - Neurological Exam Neurological exam: Present: alert, oriented X3, no focal deficits, strengths equal and symetr throughout. Absent: facial droop, speech deficit - Skin Skin exam: Present: dry, intact, normal color, warm. Absent: rash
--- NOTE | 2017-03-10 13:34 | Physician Discharge Referral ---
ExtendedCare Referral Info Transfer To: [facility] Provider in Charge after Transfer: PCP Institutional Level of Care: Intermediate - Diagnosis (1) COPD exacerbation Priority: Primary Status: Acute (2) Urinary retention Priority: Secondary Status: Acute (3) Tobacco abuse Priority: Secondary Status: Chronic (4) HTN (hypertension) Priority: Secondary Status: Chronic (5) HLD (hyperlipidemia) Priority: Secondary Status: Chronic (6) History of stroke Priority: Secondary Status: Chronic (7) Influenza A Priority: Secondary Status: Acute (8) UTI (urinary tract infection) due to Enterococcus Priority: Secondary Status: Acute Prognosis: Good Aware of Diagnosis: Patient - Transfer Medications Prescriptions: Nitrofurantoin (BID) [Macrobid] 100 mg PO BIDWM #20 capsule Oseltamivir [Tamiflu] 75 mg PO BID #1 capsule Home Medications: Lovastatin [Mevacor] 40 mg PO HS 01/25/16 [History] Mometasone/Formoterol [Dulera 200 Mcg/5 Mcg Inhaler] 2 puff IH BID 01/25/16 [ History] Albuterol Sulfate [Albuterol Inhaler] 2 puff IH Q4H PRN 03/01/16 [History] Metoprolol [Lopressor] 25 mg PO BID #60 tablet 04/14/16 [Rx] Aspirin 81 mg PO DAILY #30 tab.chew 05/20/16 [Rx] Acetaminophen [Tylenol] 500 mg PO Q6H PRN 08/26/16 [History] Primidone [Mysoline] 50 mg PO BID 08/26/16 [History] Calcium Carbonate/Vitamin D3 [Calcium 600-Vit D3 400 Tablet] 1 tab PO BID [History] Theophylline Anhydrous [Curt-24] 100 mg PO DAILY 10/04/16 [History] Docusate [Colace] 100 mg PO BID PRN 11/02/16 [History] Furosemide [Lasix] 20 mg PO DAILY PRN 11/02/16 [History] Potassium Chloride [Klor-Con] 20 meq PO DAILY PRN 11/02/16 [History] Roflumilast [Daliresp] 500 mcg PO DAILY 11/02/16 [History] Buspirone HCl [Buspar] 15 mg PO BID 02/28/17 [History] Famotidine [Pepcid] 20 mg PO DAILY 02/28/17 [History] GuaiFENesin ER [Mucinex] 600 mg PO BID PRN 02/28/17 [History] Ipratropium/Albuterol Neb [Duoneb] 3 ml IH Q6H PRN 02/28/17 [History] Tiotropium [place] [Spiriva Respimat] 2 puff IH DAILY 02/28/17 [History] predniSONE [PredniSONE] 10 mg PO DAILY 02/28/17 [History] Nitrofurantoin (BID) [Macrobid] 100 mg PO BIDWM #20 capsule 03/10/17 [Rx] Oseltamivir [Tamiflu] 75 mg PO BID #1 capsule 03/10/17 [Rx] Allergies/Adverse Reactions: 3 Allergy/AdvReac Type Severity Reaction Status Date / Time azithromycin [From Zithromax] AdvReac See Verified 12/06/16 17:31 Comments hydrochlorothiazide AdvReac Difficulty Verified 12/06/16 17:31 Breathing ibuprofen [From Motrin] AdvReac Gastrointestinal Verified 12/06/16 17:31 Upset levofloxacin [From Levaquin] AdvReac See Verified 12/06/16 17:31 Comments - Respiratory Orders Oxygen / L per min (2L/nasal canula) Smoking Cessation: Smoking cessation has been advised. For more information, call the [place] Tobacco Quit Line at 5-596-KSNR-NOW. - Lab Orders Lab Orders: CBC, U/A - Ancillary Orders May use pressure relief devices daily prn, May go on GEO w/family/respon green party w /meds at nurse discretion PRN, May consult with Dentist, Body Design Checker, Field Human Resources Manager PRN - Advance Directives Living Will: No Code Status: Full Code - Mobility Orders Ambulate - Rehabiliation Orders Rehab Potential: Good Rehab Orders: ROM Exercises, Evaluation for Physical Therapy, Evaluation for Occupational Therapy, Evaluation for Speech Therapy - Treatments Skin tear care topically daily PRN per policy, May check for fecal impaction rectally daily PRN, Fleet enema rectally every other day PRN cleansing purposes - Diet Orders Regular CERTIFICATION: I certify that the transfer of the above named patient to an Extended Care Facility is necessary for the continuing treatment of the diagnosis listed. The above information is true and accurate reflection of patient's current condition. Confidential - Redisclosure prohibited without a patient's written consent.
== END 2017-03-10 16:32 | DRG 191 ==
LOC: 3BNU 18:45 → EMEROO 18:45 → 3BNU 21:09 → SUATTDRO 21:38
PROVIDERS: ADMIT Family Medicine; ATTEND Internal Medicine

== ENCOUNTER 2017-03-23 07:36 | Inpatient (IN) ==
[2017-03-23 08:45] LABS: Basophils % 0.5 %; Eosinophils # 0.1 K/mcL (0.0-0.6); Eosinophils % 0.9 %; Hematocrit 40.1 % (37.5-50.1); Hemoglobin 12.6 g/dL (12.9-16.9); Immature Granulocytes % 0.4 % (0-4); Lymphocytes # 1.2 K/mcL (0.6-4.6); Lymphocytes % 15.4 %; Mean Corpuscular HGB Conc 31.4 g/dL (31.6-35.5); Mean Corpuscular Hemoglobin 30.4 pg (28.0-33.3); Mean Corpuscular Volume 96.9 fL (83.0-100.0); Mean Platelet Volume 10.2 fL (9.4-12.4); Monocytes # 0.7 K/mcL (0.0-1.3); Monocytes % 9.7 %; Neutrophils # 5.4 K/mcL (1.6-8.9); Platelet Count 258 K/mcL (140-400); Red Blood Count 4.14 M/mcL (4.19-5.50); Red Cell Distribution Width 13.5 % (11.5-14.5); Segmented Neutrophils % 73.1 %
[2017-03-23] MEDS ORDERED: Ipratropium/Albuterol Neb 3 ML IH ONE (08:49)
[2017-03-23] MEDS ORDERED: methylPREDNISolone 125 MG/2 ML VIAL IVP ONE (08:49)
--- NOTE | 2017-03-23 08:53 | Emergency Department Note ---
Disposition Clinical Impression: Healthcare-associated pneumonia Disposition: Admitted As Inpatient Condition: Good Chest Pain HPI - General Chief Complaint: ED Chest Pain Stated Complaint: chest pain Time Seen by Provider: 03/23/17 07:38 Source: patient, EMS Mode of arrival: EMS Limitations: no limitations Vital Signs Reviewed: Yes Nursing Notes Reviewed: Yes - History of Present Illness HPI Narrative: 66-year-old male history of COPD on oxygen as needed who presents to the ER with a chief complaint of chest pain and shortness of breath. Patient reports he started having some intermittent chest pain starting this morning. States he is also had a cough that became productive this morning. Recent hospitalization for influenza and COPD exacerbation. Went to longterm facility for rehabilitation. Denies a prior history of cardiac disease. No fevers, nausea, vomiting. Has had productive sputum which is yellow. Patient given 1 DuoNeb treatment prior to arrival. No other complaints. Pt complaint: chest pain Onset (ago): hour(s) Duration: intermittent Onset: during rest Pain Location: left chest Severity: mild Severity scale (1-10): 2 Quality: sharp Pain Radiation: none Improves with: nothing Worsens with: movement Context: recent illness Associated symptoms: Reports: dyspnea. Denies: nausea, vomiting Treatments prior to arrival chest pain: other - Related Data On Oral Contraceptives: No Home Medications Medication Instructions Recorded Confirmed Lovastatin [Mevacor] 40 mg PO HS 01/25/16 03/23/17 Mometasone/Formoterol [Dulera 200 2 puff IH BID 01/25/16 03/23/17 Mcg/5 Mcg Inhaler] Acetaminophen [Tylenol] 500 mg PO Q6H PRN 08/26/16 03/23/17 Primidone [Mysoline] 50 mg PO BID 08/26/16 03/23/17 Calcium Carbonate/Vitamin D3 1 tab PO BID 10/04/16 03/23/17 [Calcium 600-Vit D3 400 Tablet] Theophylline Anhydrous [Curt-24] 100 mg PO DAILY 10/04/16 03/23/17 Docusate [Colace] 100 mg PO BID PRN 11/02/16 03/23/17 Roflumilast [Daliresp] 500 mcg PO DAILY 11/02/16 03/23/17 Buspirone HCl [Buspar] 15 mg PO BID 02/28/17 03/23/17 Famotidine [Pepcid] 20 mg PO DAILY 02/28/17 03/23/17 GuaiFENesin ER [Mucinex] 600 mg PO Q12H 02/28/17 03/23/17 Ipratropium/Albuterol Neb [Duoneb] 3 ml IH Q6H PRN 02/28/17 03/23/17 predniSONE [PredniSONE] 10 mg PO DAILY 02/28/17 03/23/17 Tiotropium [Spiriva] 18 mcg IH 0700 03/23/17 03/23/17 Previous Rx's Medication Instructions Recorded Metoprolol [Lopressor] 25 mg PO BID #60 tablet 04/14/16 Aspirin 81 mg PO DAILY #30 tab.chew 05/20/16 Allergies Allergy/AdvReac Type Severity Reaction Status Date / Time azithromycin [From Zithromax] AdvReac See Verified 03/23/17 07:44 Comments hydrochlorothiazide AdvReac Difficulty Verified 03/23/17 07:44 Breathing ibuprofen [From Motrin] AdvReac Gastrointestinal Verified 03/23/17 07:44 Upset levofloxacin [From Levaquin] AdvReac See Verified 03/23/17 07:44 Comments All systems ED: reviewed and negative except as stated. Constitutional: Denies: fever Cardiovascular: Reports: chest pain Respiratory: Reports: cough, dyspnea, sputum production Gastrointestinal: Denies: abdominal pain, nausea, vomiting Chest Pain PMH - Past Medical History Medical history: Reports: COPD, CVA, hyperlipidemia, hypertension Surgical history: Reports: non-contributory, other Psychiatric history: Reports: anxiety, depression - Social History Smoking Status: Current some day smoker Alcohol use: Reports: none Drug use: Reports: none Physical Exam - General Limitations: no limitations General appearance: alert, in no apparent distress - Head Head exam: atraumatic, normocephalic - Eye Eye exam: Present: normal appearance - ENT ENT exam: normal exam - Neck Neck exam: Present: normal inspection, full ROM - Chest Chest inspection: Present: normal inspection, symmetric chest wall rise - Respiratory Respiratory exam: Present: prolonged expiratory phase, other (Diminished breath sounds bilaterally) - Cardiovascular Cardiovascular exam: Present: regular rate, normal rhythm, normal heart sounds - Abdominal Exam Abdominal exam: Present: soft, Non-Tender. Absent: tenderness - Extremities Exam Extremities exam: Present: normal inspection, full ROM - Expanded Upper Extremity Exam Shoulder exam: Present: normal inspection, full ROM Arm exam: Present: normal inspection, full ROM Elbow exam: Present: normal inspection, full ROM Forearm/Wrist exam: Present: normal inspection, full ROM Hand exam: Present: normal inspection, full ROM - Expanded Lower Extremity Exam Hip/Pelvis exam: Present: normal inspection, full ROM Upper leg exam: Present: normal inspection, full ROM Knee exam: Present: normal inspection, full ROM Lower leg exam: Present: normal inspection, full ROM Ankle exam: Present: normal inspection, full ROM Foot/toe exam: Present: normal inspection, full ROM - Neurological Exam Neurological exam: Present: alert, other (GCS 15. Nonfocal) - Psychiatric Psychiatric exam: Present: normal affect - Skin Skin exam: Present: warm, dry, intact Course Course Narrative: Patient seen and examined. Vital signs reviewed. Noted to be 90% on room air here. We will obtain an EKG, chest x-ray as well as labs including troponin. DuoNeb and IV Solu-Medrol ordered. - Reevaluation(s) Reevaluation #1: Updated patient on findings. Agreeable with staying in the hospital. Vital Signs Temperature 97.9 F 03/23/17 07:37 Pulse Rate 75 03/23/17 07:37 Respiratory Rate 16 03/23/17 07:37 Blood Pressure 149/92 03/23/17 07:37 O2 Sat by Pulse Oximetry 97 03/23/17 07:37 Temperature 97.9 F 03/23/17 07:37 Pulse Rate 81 03/23/17 09:40 Respiratory Rate 16 03/23/17 09:40 Blood Pressure 138/87 03/23/17 09:40 O2 Sat by Pulse Oximetry 95 03/23/17 09:40 Oxygen Delivery Oxygen Delivery Nasal Cannula Chest Pain - MDM Narrative Medical decision making narrative: 66-year-old male presents to the ER due to chest pain and productive cough. Recent hospitalization for influenza and COPD exacerbation. Hemodynamically stable. X-ray showing bilateral lower lobe opacities. Likely post-influenza pneumonia. Patient given vancomycin and cefepime. Admitted to the hospitalist service. - Lab Data Lab results reviewed: Yes I reviewed the patient's lab results. Result diagrams: 03/23/17 08:16 03/23/17 08:16 Lab Results 03/23/17 03/23/17 03/23/17 Range/Units 08:16 08:16 08:16 WBC 7.5 (4.3-11.1) K/mcL RBC 4.14 L (4.19-5.50) M/mcL Hgb 12.6 L (12.9-16.9) g/dL Hct 40.1 (37.5-50.1) % MCV 96.9 (83.0-100.0) fL MCH 30.4 (28.0-33.3) pg MCHC 31.4 L (31.6-35.5) g/dL RDW 13.5 (11.5-14.5) % Plt Count 258 (140-400) K/mcL MPV 10.2 (9.4-12.4) fL Immature Gran % 0.4 (0-4) % Seg Neutrophils % 73.1 % Lymphocytes % 15.4 % Monocytes % 9.7 % Eosinophils % 0.9 % Basophils % 0.5 % Neutrophils # 5.4 (1.6-8.9) K/mcL Lymphocytes # 1.2 (0.6-4.6) K/mcL Monocytes # 0.7 (0.0-1.3) K/mcL Eosinophils # 0.1 (0.0-0.6) K/mcL Basophils # 0.0 (0.0-0.2) K/mcL Sodium 139 (136-145) mEq/L Potassium 3.8 (3.5-5.1) mEq/L Chloride 101 (98-107) mEq/L Carbon Dioxide 33 H (23-29) mEq/L BUN 18 (8-23) mg/dL Creatinine 1.05 (0.70-1.30) mg/dL Est GFR ( Amer) > 60 (> 60) Est GFR (Non-Af Amer) > 60 (> 60) BUN/Creatinine Ratio 17 (6-26) Glucose 97 (70-105) mg/dL Calculated Osmolality 290 (280-300) Lactic Acid (0.5-2.2) mmol/L Calcium 8.8 (8.6-10.3) mg/dL Troponin I (< 0.04) ng/mL B-Natriuretic Peptide 89 (Less than 100) pg/mL 03/23/17 03/23/17 Range/Units 08:16 09:19 WBC (4.3-11.1) K/mcL RBC (4.19-5.50) M/mcL Hgb (12.9-16.9) g/dL Hct (37.5-50.1) % MCV (83.0-100.0) fL MCH (28.0-33.3) pg MCHC (31.6-35.5) g/dL RDW (11.5-14.5) % Plt Count (140-400) K/mcL MPV (9.4-12.4) fL Immature Gran % (0-4) % Seg Neutrophils % % Lymphocytes % % Monocytes % % Eosinophils % % Basophils % % Neutrophils # (1.6-8.9) K/mcL Lymphocytes # (0.6-4.6) K/mcL Monocytes # (0.0-1.3) K/mcL Eosinophils # (0.0-0.6) K/mcL Basophils # (0.0-0.2) K/mcL Sodium (136-145) mEq/L Potassium (3.5-5.1) mEq/L Chloride (98-107) mEq/L Carbon Dioxide (23-29) mEq/L BUN (8-23) mg/dL Creatinine (0.70-1.30) mg/dL Est GFR ( Amer) (> 60) Est GFR (Non-Af Amer) (> 60) BUN/Creatinine Ratio (6-26) Glucose (70-105) mg/dL Calculated Osmolality (280-300) Lactic Acid 0.8 (0.5-2.2) mmol/L Calcium (8.6-10.3) mg/dL Troponin I < 0.03 (< 0.04) ng/mL B-Natriuretic Peptide (Less than 100) pg/mL - Radiology Data Radiology results reviewed: Yes I reviewed the patient's radiology results. Chest X-Ray 03/23/17 07:59 IMPRESSION: 1. Emphysema. 2. Patchy bibasilar airspace opacities, appear similar compared to 03/07/2017. Cannot exclude evolving pneumonia. Continued radiographic follow-up recommended. D/ / 03/23/2017 08:18:47 Oneil Aguirre MD / [facility] Interpreting Provider: Oneil Aguirre MD - EKG Data EKG attestation: Yes I reviewed and interpreted this EKG. EKG results narrative: EKG demonstrates sinus rhythm with PACs with a rate of 64 bpm. Normal axis. Normal intervals. Normal R-wave progression. No gross ST elevations or depressions. No acute ischemic findings. No significant changes from previous EKG dated 02/28/17. Matthew - Matthew Situation: Demographics, MOA Background: Presenting Complaint, Relevant PMH, Meds, & Allergies Assessment: Vital Signs, Course and respsone to treatment, Exam Concerns, Patient/Family Expectation, Pertinant Lab Results Recommendation: Barrier(s) to disposition, Recommendation based on pending studies, treatments, or consults SCarmen Report Given to: Dr. Vik Castro Repor Time: 10:04 Attestation Statement - Attestation Attestation: I examined this patient and my medical decision-making was reviewed with the Resident Physician, Dr. Dang. I agree with the documented findings, disposition and treatment plan as described except to the extent set forth below. Patient is a 66-year-old white male with history of COPD with recent hospitalization for COPD exacerbation and influenza. Patient presents today with complaints of chest tightness diffusely across the anterior chest associated with shortness of breath and wheezing for the past 24 hours and has gradually worsened. Patient with occasional cough with productive sputum. No fevers or chills. Patient is hypoxic on room air on arrival 89-90%. Agree with the patient's physical exam findings as documented. Patient received aerosols and steroids on arrival and chest x-ray shows concerning for bilateral pneumonia. Patient was started on antibiotics for hospital-acquired pneumonia. Aerosols and continued. Patient will be admitted for an acute exacerbation COPD and bilateral pneumonia. Case was discussed with the hospitalist.
[2017-03-23] MEDS ORDERED: Cefepime HCl 2,000 MG in Water for inj. (sterile) 20 ML IVP ONE (09:07)
[2017-03-23] MEDS ORDERED: Vancomycin 1,000 MG in D5% in Water 250 ML IVPB ONE (09:07)
[2017-03-23 09:32] LABS: BUN/Creatinine Ratio 17 (6-26); Blood Urea Nitrogen 18 mg/dL (8-23); Calcium 8.8 mg/dL (8.6-10.3); Carbon Dioxide 33 mEq/L (23-29); Chloride 101 mEq/L (98-107); Glucose 97 mg/dL (70-105); Osmolality,Calculated 290 (280-300); Potassium 3.8 mEq/L (3.5-5.1); Sodium 139 mEq/L (136-145); eGFR For African Americans > 60 (> 60); eGFR For Non-African Americans > 60 (> 60)
[2017-03-23] MEDS ORDERED: Ondansetron 4 MG/2 ML VIAL IVP PRN (11:15)
[2017-03-23] MEDS ORDERED: *HR* HYDROcodone/Acet 5/325 mg TABLET PO PRN (11:15)
[2017-03-23] MEDS ORDERED: Acetaminophen 325 MG TABLET PO PRN (11:15)
[2017-03-23] MEDS ORDERED: Naloxone 0.4 MG/ML INJ IVP PRN (11:21)
[2017-03-23] MEDS: Ipratropium/Albuterol Neb 3 ML IH ONE ×2 (12:07→13:20)
--- NOTE | 2017-03-23 12:38 | Internal Med History&Physical ---
<Lucian Villar - Last Filed: 03/23/17 13:21> Date of Encounter: 03/23/17 Time of Encounter: 11:30 Assessment and Plan (1) HCAP (healthcare-associated pneumonia) Current visit: Yes Status: Acute Acute HCAP. Pt. reports being hospitalized 02/27 for flu and discharged 11 days later to SNF. Pt. developed SOB/dyspnea/cough at SNF and states he had the same sx one year ago when he had pneumonia and sepsis. 1-View CXR today shows emphysema and patchy bibasilar airspace opacities, appear similar compared to . Cannot exclude evolving pneumonia. Pt. does not currently meet sepsis criteria but will be monitored closely d/t hx of sepsis/pneumonia. Blood cultures x2. Sputum culture ordered. Legionella and strep pneumoniae antigens ordered. Cefepime and vancomycin started in ED. Will continue IVPB cefepime 2, 000 mg Q8, vancomycin w/pharmacy dosing, and add PO doxycycline 100 mg BID for infection coverage. We will adjust abx coverage based on culture results if warranted. Supplemental O2 w/titration and SpO2 monitoring. DuoNebs Q6 scheduled. Prednisone PO 20 mg BIDWM. Monitor pt., VS, and f/u labs. Pt. discussed w/Dr. Chery who agrees w/plan of care. Pt. is high risk for further morbidity d/t current sx, HCAP from recent hospitalization, COPD, and risk factors (including hx of sepsis and pneumonia). Inpatient. (2) Cough with sputum Current visit: Yes Status: Acute Acute cough w/yellow/green sputum production. Sputum culture ordered. Continue pts. Mucinex. DuoNebs Q6 scheduled. Supplemental O2 w/titration and SpO2 monitoring. Continue pts. inhalers. (3) Abnormal hemoglobin (Hgb) Current visit: Yes Status: Chronic Hx of abnormal Hgb. Hgb is 12.6 on admission today which is at same range as in February when previously admitted. Monitor H/H in a.m. labs. Fecal hemoccult ordered. (4) Difficulty urinating Current visit: Yes Status: Chronic Chronic difficulty w/urination. Pt. is unsure of prostate status or any BPH dx. PSA ordered in a.m. labs. Bladder scans PRN. Will insert Arguelles if warranted for urinary retention. Monitor I&O. (5) COPD (chronic obstructive pulmonary disease) Current visit: Yes Status: Chronic Hx of chronic COPD currently complicated by HCAP dx. Pt. is steroid-dependent for his COPD. Will increase prednisone to 20 mg BIDWM which is to be tapered back to pts. 10 mg daily by discharge w/continuation of 10 mg daily in post- discharge orders. Supplemental O2 w/titration and SpO2 monitoring. DuoNebs Q6 scheduled. Will continue pts. inhalers. Pt. being treated w/abx for current pneumonia dx which will cover any possible bronchitis. Monitor pt. and VS. Qualifiers: COPD type: unspecified COPD Qualified Code(s): J44.9 - Chronic obstructive pulmonary disease, unspecified (6) HLD (hyperlipidemia) Current visit: Yes Status: Chronic Hx of chronic HLD. Lipid panel in a.m. labs. Continue pts. lovastatin. Qualifiers: Hyperlipidemia type: pure hypercholesterolemia Qualified Code(s): E78.00 - Pure hypercholesterolemia, unspecified; E78.0 - Pure hypercholesterolemia (7) HTN (hypertension) Current visit: Yes Status: Chronic Hx of chronic HTN. Monitor pt. and VS. Continue pts. Lopressor. Qualifiers: Hypertension type: essential hypertension Qualified Code(s): I10 - Essential (primary) hypertension (8) Anxiety Current visit: Yes Status: Chronic Hx of chronic anxiety. Continue pts. Buspar. (9) DVT prophylaxis Current visit: Yes Status: Acute Heparin 5,000 units SQ Q8 for DVT prophylaxis. Monitor pt. for signs of bleeding. Internal Medicine - H&P: HPI Chief complaint: SOB/Dyspnea/Chest congestion Admitted From: Emergency Dept Plans for Post Hospital Care: Home History of present illness: Mr. Steven is a 66 year old male with medical hx of COPD, CVA, atrial defect and HTN presents from ED with chief complaint chest congestion/discomfort, shortness of breath, and dyspnea for the past several days. Pt. states he was admitted on February 27 for 11 days w/dx of flu and discharged to [facility]. While at the SNF, pt. states he was swabbed again and found + for flu. Reports yellow/green sputum and cough for the past several days. He also reports being admitted one year ago w/pneumonia and sepsis. Hx of COPD w/inhaler use, home O2 , and breathing tx PRN. Pt. reports pain in left foot/difficulty w/ambulation but denies fever, chills, nausea, vomiting, headache, changes in vision, abdominal pain, chest pain, palpitations, diarrhea, constipation, numbness, tingling, dizziness, pre-syncope, or syncope. Past Med Surg Social Fam HX - Past Medical History Source: patient, old records reviewed Medical history: COPD, CVA, hyperlipidemia, hypertension Psychiatric history: anxiety, depression - Past Surgical History Surgical History: other - Social History Smoking Status: Current some day smoker Packs per day: 2-3 filtered cigars daily Smokeless Tobacco Status: No Alcohol use: none Drug use: none Current living situation: Home, Assisted Living Activity Level: Uses cane/walker Recent Out of Country Travel Within the Last 8 Weeks: No Exposure or Possible Exposure to Illness During Travel: No - Family History Mother Adopted: No Race: Family Member Ethnicity: Non- Living Status: Age at : 42 Cause of : Lung cancer Hx Family Cancer: Yes (Lung) Hx Family Medical Disorders: No Father Adopted: No Race: Family Member Ethnicity: Non- Living Status: Age at : 45 Cause of : Emphysema Hx Family Respiratory Disorders: Yes (Emphysema from tobacco abuse) Hx Family Medical Disorders: No Brother Race: Family Member Ethnicity: Non- Living Status: Age at : 36 Cause of : Alcoholism Hx Family Psychosocial Disorders: Yes (EtOH abuse) Internal Medicine - H&P: Meds Lovastatin [Mevacor] 40 mg PO HS 01/25/16 [History] Mometasone/Formoterol [Dulera 200 Mcg/5 Mcg Inhaler] 2 puff IH BID 01/25/16 [ History] Metoprolol [Lopressor] 25 mg PO BID #60 tablet 04/14/16 [Rx] Aspirin 81 mg PO DAILY #30 tab.chew 05/20/16 [Rx] Acetaminophen [Tylenol] 500 mg PO Q6H PRN 08/26/16 [History] Primidone [Mysoline] 50 mg PO BID 08/26/16 [History] Calcium Carbonate/Vitamin D3 [Calcium 600-Vit D3 400 Tablet] 1 tab PO BID [History] Theophylline Anhydrous [Curt-24] 100 mg PO DAILY 10/04/16 [History] Docusate [Colace] 100 mg PO BID PRN 11/02/16 [History] Roflumilast [Daliresp] 500 mcg PO DAILY 11/02/16 [History] Buspirone HCl [Buspar] 15 mg PO BID 02/28/17 [History] Famotidine [Pepcid] 20 mg PO DAILY 02/28/17 [History] GuaiFENesin ER [Mucinex] 600 mg PO Q12H 02/28/17 [History] Ipratropium/Albuterol Neb [Duoneb] 3 ml IH Q6H PRN 02/28/17 [History] predniSONE [PredniSONE] 10 mg PO DAILY 02/28/17 [History] Tiotropium [Spiriva] 18 mcg IH 0700 03/23/17 [History] 3 Allergy/AdvReac Type Severity Reaction Status Date / Time azithromycin [From Zithromax] AdvReac See Verified 03/23/17 07:44 Comments hydrochlorothiazide AdvReac Difficulty Verified 03/23/17 07:44 Breathing ibuprofen [From Motrin] AdvReac Gastrointestinal Verified 03/23/17 07:44 Upset levofloxacin [From Levaquin] AdvReac See Verified 03/23/17 07:44 Comments All Systems PM: A 10-system review of systems was performed and is negative for pertinent findings except as documented above in the HPI. - Constitutional Constitutional: no chills, no fever(s), no night sweats - EENT Eyes: no change in vision, no discharge, no pain, no photophobia Ears: no ear discharge, no ear pain, no tinnitus Nose, mouth and throat: no dysphagia, no nasal discharge, no neck pain, no sore throat - Breasts Breasts: as per HPI - Cardiovascular Cardiovascular ROS IM: dyspnea, dyspnea on exertion, no chest pain, no diaphoresis, no lightheadedness, no palpitations, no syncope - Respiratory Respiratory: as per HPI, cough, dyspnea, dyspnea on exertion, wheezing, chest congestion, change in phlegm color - Gastrointestinal Gastrointestinal: no abdominal pain, no diarrhea, no hematemesis, no hematochezia, no melena, no nausea, no vomiting - Genitourinary Genitourinary ROS male: as per HPI - Musculoskeletal Musculoskeletal ROS IM: other (Pain in left foot), no numbness, no tingling - Integumentary Integumentary IM: no rash, no unusual bruising - Neurological Neurological ROS: no confusion, no convulsions, no focal weakness, no numbness, no tingling, no tremor(s) - Psychiatric Psychiatric: as per HPI, anxiety - Endocrine Endocrine IM: as per HPI - Hematologic/Lymphatic Hematologic/Lymphatic: no easy bruising - Allergic/Immunologic Allergic/Immunologic: as per HPI - Constitutional Vitals: Temp Pulse Resp BP Pulse Ox 97.9 F 78 16 142/58 96 03/23/17 07:37 03/23/17 11:00 03/23/17 11:00 03/23/17 11:00 03/23/17 12:11 General appearance: Present: cooperative, mild distress (Respiratory), A&O X 3, pleasant, answers questions appropriately - Head Head exam: Present: atraumatic, normocephalic - Eye Eye exam: Present: PERRL, conjuntiva pink, sclera anicteric Pupils: Present: PERRL - ENT ENT exam: Present: normal exam - Neck Neck exam general surgery: Present: normal inspection, supple, trachea midline. Absent: lymphadenopathy - Respiratory Respiratory exam: Present: accessory muscle use, wheezes (Inspiratory in all lobes) - Cardiovascular Cardiovascular exam: Present: RRR, +S1, +S2. Absent: diastolic murmur, gallop, rubs, systolic murmur - GI/Abdominal GI/Abdominal exam: Present: normal bowel sounds, soft, no peritoneal signs. Absent: distended, tenderness - Rectal Rectal exam: Present: deferred - Additional comments: exam deferred. - Extremities Exam Extremities exam: Present: tenderness (Left foot), warm, radial pulses palpable and symmetrical. Absent: calf tenderness, cyanotic, pedal edema - Back Exam Back exam: Present: normal inspection - Neurological Exam Neurological exam: Present: CN II-XII intact, oriented X3, no focal deficits. Absent: pronater drift, facial droop, speech deficit - Psychiatric Psychiatric exam: Present: normal affect, normal mood - Skin Skin exam: Present: dry, intact Internal Med - H&P Results - Labs CBC & Chem 7: 03/23/17 08:16 03/23/17 08:16 - EKG Data EKG shows normal: sinus rhythm - EKG Data Prior EKG available for review: yes EKG comments: 03/23/17 12:44 EKG dated 02/28/17 shows sinus rhythm. EKG dated 03/23/17 shows sinus rhythm with occasional supraventricular premature complexes and nonspecific T-wave abnormality. - Diagnostic Studies Chest x-ray Additional comments: Impressions Chest X-Ray 03/23/17 07:59 IMPRESSION: 1. Emphysema. 2. Patchy bibasilar airspace opacities, appear similar compared to 03/07/2017. Cannot exclude evolving pneumonia. Continued radiographic follow-up recommended. D/ / 03/23/2017 08:18:47 Oneil Aguirre MD / [facility] Interpreting Provider: Oneil Aguirre MD <El Chery - Last Filed: 03/23/17 16:35> Date of Encounter: 03/23/17 Time of Encounter: 13:00 - Constitutional Vitals: Temp Pulse Resp BP Pulse Ox 97.8 F 84 20 135/81 97 03/23/17 14:16 03/23/17 14:16 03/23/17 15:22 03/23/17 14:16 03/23/17 15:22 General appearance: Present: cooperative, mild distress, A&O X 3, pleasant - ENT ENT exam: Present: mucous membranes dry, normal exam - Neck Neck exam general surgery: Present: normal inspection, supple - Respiratory Respiratory exam: Present: rales (few scattered), rhonchi, wheezes. Absent: chest wall tenderness, CTAB - Cardiovascular Cardiovascular exam: Present: RRR, +S1, +S2 - GI/Abdominal GI/Abdominal exam: Present: normal bowel sounds, soft. Absent: distended, rebound, tenderness - Extremities Exam Extremities exam: Present: warm, radial pulses palpable and symmetrical. Absent : joint swelling - Back Exam Back exam: Present: normal inspection. Absent: CVA tenderness (L), CVA tenderness (R) - Skin Skin exam: Present: dry, warm. Absent: rash Internal Med - H&P Results - Labs CBC & Chem 7: 03/23/17 08:16 03/23/17 08:16 - EKG Data -: EKG Interpreted by Myself EKG shows normal: sinus rhythm - EKG Data EKG comments: 03/23/17 16:24 NSR; no acute changes - Diagnostic Studies Chest x-ray Status: image reviewed by me (scant bibasilar opacities) - Attending Attestation I discussed the patient KING [place]MON, PMH, ROS, lab data, and exam findings with Brandon Villar CNP. I then saw and examined patient independently as well. Patient recently hospitalized with Influenza and now has signs and symptoms of pneumonia. Patient at high risk for decompensation and increased morbidity due to his COPD, recent hospitalization and ECF stay. I agree with the need for IV antibiotics, COPD treatment, and re-admission to the hospital. Other than my comments above and noted exam findings, I agree with Brandon's assessment and plan.
[2017-03-23] MEDS: 0.9 % Sodium Chloride 1,000 ML IVC SCH (14:22)
[2017-03-23] MEDS: Ipratropium/Albuterol Neb 3 ML IH SCH ×2 (15:22→22:01)
--- NOTE | 2017-03-23 16:22 | Electrocardiograph Report ---
[place] [id number] Test Date: 2017-03-23 Pat Name: Ellis Steven Department: 104 Room: 3B Gender: M [employer]: AM : 1950 Requested By: Barrie Dang Order Number: [id number] Reading MD: Zamzam De Santiago Measurements Intervals [place] Rate: 64 P: 29 MN: 139 QRS: 61 QRSD: 78 T: 67 QT: 304 QTc: 314 Interpretive Statements SINUS RHYTHM WITH OCCASIONAL SUPRAVENTRICULAR PREMATURE COMPLEXES NONSPECIFIC T-WAVE ABNORMALITY Electronically Signed On 03-23-2017 16:20:56 EST by Zamzam De Santiago
[2017-03-23] MEDS: predniSONE 20 MG TABLET PO SCH (16:28)
[2017-03-23] MEDS: Cefepime HCl 2,000 MG in Water for inj. (sterile) 20 ML 20 ML IVP SCH ×2 (16:28→23:56)
[2017-03-23] MEDS: *HR* Heparin 5,000 UNIT/ML VIAL SQ SCH ×2 (16:28→23:55)
[2017-03-23] MEDS ORDERED: NON-FORMULARY MEDICATION 1 EACH EACH (Calcium Carbonate/Vitamin D3 [Calcium 600-Vit D3 400 PO SCH (21:00)
[2017-03-23] MEDS ORDERED: Vancomycin 1,000 MG in D5% in Water 250 ML IVPB SCH (21:00)
[2017-03-23] MEDS: Doxycycline 100 MG CAPSULE PO SCH (21:17)
[2017-03-23] MEDS: Vancomycin 1,000 MG in D5% in Water 250 ML IVPB SCH (21:17)
[2017-03-23] MEDS: Primidone 50 MG TABLET PO SCH (21:19)
[2017-03-23] MEDS: Budesonide/Formoterol 160/4.5 MDI IH SCH (22:01)
[2017-03-24] MEDS: Ipratropium/Albuterol Neb 3 ML IH SCH ×4 (03:58→21:38)
[2017-03-24 05:41] LABS: Basophils % 0.1 %; Hematocrit 36.1 % (37.5-50.1); Hemoglobin 11.4 g/dL (12.9-16.9); Immature Granulocytes % 0.4 % (0-4); Lymphocytes % 8.8 %; Mean Corpuscular HGB Conc 31.6 g/dL (31.6-35.5); Mean Corpuscular Hemoglobin 30.2 pg (28.0-33.3); Mean Corpuscular Volume 95.8 fL (83.0-100.0); Mean Platelet Volume 10.1 fL (9.4-12.4); Monocytes % 7.4 %; Platelet Count 227 K/mcL (140-400); Red Blood Count 3.77 M/mcL (4.19-5.50); Red Cell Distribution Width 13.3 % (11.5-14.5); Segmented Neutrophils % 83.3 %
[2017-03-24 05:42] LABS: Lymphocytes # 0.7 K/mcL (0.6-4.6); Monocytes # 0.6 K/mcL (0.0-1.3); Neutrophils # 6.9 K/mcL (1.6-8.9)
[2017-03-24 05:55] LABS: Alanine Aminotransferase 22 Units/L (7-52); Albumin 2.7 g/dL (3.5-5.7); Albumin/Globulin Ratio 0.9 (1.1-2.2); Alkaline Phosphatase 50 Units/L (34-104); Aspartate Amino Transferase 13 Units/L (13-39); BUN/Creatinine Ratio 20 (6-26); Bilirubin,Total 0.3 mg/dL (0.3-1.0); Blood Urea Nitrogen 19 mg/dL (8-23); Calcium 8.1 mg/dL (8.6-10.3); Carbon Dioxide 29 mEq/L (23-29); Chloride 104 mEq/L (98-107); Chol/HDL Ratio 3.3 (0-4.9); Cholesterol 159 mg/dL (< 200); Globulin 2.9 g/dL (2.4-3.5); Glucose 157 mg/dL (70-105); HDL Cholesterol 48 mg/dL (40-59); Hemoglobin A1C 5.1 %; LDL Cholesterol,Calculated 99 mg/dL (0-99); Magnesium 1.9 mg/dL (1.6-2.6); Osmolality,Calculated 290 (280-300); Potassium 3.9 mEq/L (3.5-5.1); Sodium 137 mEq/L (136-145); Total Protein 5.6 g/dL (6.4-8.9); Triglycerides 62 mg/dL (< 150); eGFR For African Americans > 60 (> 60); eGFR For Non-African Americans > 60 (> 60)
[2017-03-24] MEDS ORDERED: Tiotropium 18 MCG inhalation IH SCH (07:00)
[2017-03-24] MEDS ORDERED: (Roflumilast [Daliresp] 500 MCG) PO SCH (09:00)
[2017-03-24] MEDS: *HR* Heparin 5,000 UNIT/ML VIAL SQ SCH ×3 (09:32→23:20)
[2017-03-24] MEDS: Cefepime HCl 2,000 MG in Water for inj. (sterile) 20 ML 20 ML IVP SCH ×3 (09:32→23:21)
[2017-03-24] MEDS: Doxycycline 100 MG CAPSULE PO SCH ×2 (09:32→19:55)
[2017-03-24] MEDS: Primidone 50 MG TABLET PO SCH ×2 (09:32→19:55)
[2017-03-24] MEDS: predniSONE 20 MG TABLET PO SCH ×2 (09:33→16:08)
[2017-03-24] MEDS: Vancomycin 1,000 MG in D5% in Water 250 ML IVPB SCH ×2 (09:33→22:07)
[2017-03-24] MEDS: Famotidine 20 MG TABLET PO SCH (09:33)
[2017-03-24] MEDS: Aspirin 81 MG TAB.CHEW PO SCH (09:33)
[2017-03-24] MEDS: Budesonide/Formoterol 160/4.5 MDI IH SCH ×2 (10:07→21:38)
[2017-03-24] MEDS: 0.9 % Sodium Chloride 1,000 ML IVC SCH (12:29)
--- NOTE | 2017-03-24 17:48 | Internal Med Progress Note ---
Date of Encounter: 03/24/17 Time of Encounter: 10:45 - Assessment and plan (1) HCAP (healthcare-associated pneumonia) Current Visit: Yes Status: Acute Assessment and plan: Patient was admitted in February for flu, he stayed for 11 days was sent to [facility]. He developed shortness of breath, dyspnea, productive cough and states that he told the nursing staff for multiple days that he needed to come to the emergency room and they were hesitant to send him. Patient insists that he is still septic from one year ago and he has never gotten better. X-ray showed emphysema and patchy bibasilar airspace opacities that appears similar to chest x-ray from 03/07/2017. Evolving pneumonia cannot be excluded. Patient has no sepsis criteria Legionella and strep pneumo antigens were negative, sputum culture was negative. Patient is being treated with vancomycin and cefepime and by mouth doxycycline. We will continue oxygen, DuoNeb nebs and prednisone. (2) COPD (chronic obstructive pulmonary disease) Current Visit: Yes Status: Chronic Assessment and plan: Plan as above. Qualifiers: COPD type: unspecified COPD Qualified Code(s): J44.9 - Chronic obstructive pulmonary disease, unspecified (3) Hypertension Current Visit: Yes Status: Chronic Assessment and plan: Chronic. Monitor vital signs continue home medications. Qualifiers: Hypertension type: essential hypertension Qualified Code(s): I10 - Essential (primary) hypertension (4) DVT prophylaxis Current Visit: Yes Status: Acute Assessment and plan: Heparin subcutaneous daily. (5) HLD (hyperlipidemia) Current Visit: Yes Status: Chronic Assessment and plan: Chronic. Continue home medications. Qualifiers: Hyperlipidemia type: pure hypercholesterolemia Qualified Code(s): E78.00 - Pure hypercholesterolemia, unspecified; E78.0 - Pure hypercholesterolemia (6) Anxiety Current Visit: Yes Status: Chronic Assessment and plan: Patient with chronic anxiety. Continue home medications. May add hydroxyzine as needed. (7) Cough with sputum Current Visit: Yes Status: Acute Assessment and plan: Plan as above. (8) Abnormal hemoglobin (Hgb) Current Visit: Yes Status: Chronic Assessment and plan: Stool occult blood was positive. Hemoglobin is 11.4. Patient has no signs of bleeding and denies dark tarry stools. Monitor labs in the morning. Iron studies, B12, folate have been ordered. - Time Spent With Patient less than 15 minutes - Subjective Interval history: Patient was seen and assessed at bedside at 10:45 AM. He is alert, awake, oriented. His lungs are clear diminished. Patient states that he is not feeling well. He verbalizes concern that despite having the flu when he left here, he was diagnosed with flu again at the [facility] and placed in a room with the patient who also had the flu. He denies any headache, nausea vomiting , abdominal pain. He denies any back pain. He denies productive cough. - Constitutional Vitals: Temp Pulse Resp BP Pulse Ox 98.0 F 64 16 117/71 97 03/24/17 16:10 03/24/17 16:10 03/24/17 16:28 03/24/17 16:10 03/24/17 16:28 General appearance: Present: cooperative, mild distress, A&O X 3, pleasant, no acute distress, answers questions appropriately - Head Head exam: Present: atraumatic, normal inspection, normocephalic - Eye Eye exam: Present: conjuntiva pink, sclera anicteric - Neck Neck exam general surgery: Present: normal inspection, supple, trachea midline. Absent: lymphadenopathy, tenderness - Respiratory Respiratory exam: Present: decreased breath sounds, CTAB. Absent: accessory muscle use, chest wall tenderness, rales, respiratory distress, rhonchi, wheezes - Cardiovascular Cardiovascular exam: Present: RRR, +S1, +S2. Absent: diastolic murmur, gallop, rubs, systolic murmur - GI/Abdominal GI/Abdominal exam: Present: normal bowel sounds, soft, no peritoneal signs. Absent: distended, hepatomegaly, tenderness - Extremities Exam Extremities exam: Present: normal capillary refill, normal inspection, warm, radial pulses palpable and symmetrical. Absent: calf tenderness, cyanotic, pedal edema, tenderness - Neurological Exam Neurological exam: Present: alert, CN II-XII intact, oriented X3, no focal deficits. Absent: altered, facial droop, speech deficit - Skin Skin exam: Present: dry, intact, normal color, warm. Absent: rash Internal Medicine: Result - Labs CBC & Chem 7: 03/24/17 05:22 03/24/17 05:22 Labs: Short CBC 03/24/17 Range/Units 05:22 WBC 8.3 (4.3-11.1) K/mcL Hgb 11.4 L (12.9-16.9) g/dL Hct 36.1 L (37.5-50.1) % Plt Count 227 (140-400) K/mcL Neutrophils # 6.9 (1.6-8.9) K/mcL BMP 03/24/17 05:22 Sodium 137 Potassium 3.9 Chloride 104 Carbon Dioxide 29 BUN 19 Creatinine 0.95 Glucose 157 H Calcium 8.1 L Liver Function 03/24/17 Range/Units 05:22 Total Bilirubin 0.3 (0.3-1.0) mg/dL AST 13 (13-39) Units/L ALT 22 (7-52) Units/L Alkaline Phosphatase 50 (34-104) Units/L Albumin 2.7 L (3.5-5.7) g/dL Consult Discharge Plan - Plan Referrals: Talita Coffey, FIRE TECHNICIAN [Primary Care Provider] -
[2017-03-24] MEDS ORDERED: Aminoglycoside Consult 1 EACH MC ONE (20:59)
[2017-03-25] MEDS: 0.9 % Sodium Chloride 1,000 ML IVC SCH (02:36)
[2017-03-25] MEDS: Ipratropium/Albuterol Neb 3 ML IH SCH ×4 (03:41→22:51)
[2017-03-25 06:37] LABS: Basophils % 0.4 %; Eosinophils % 0.1 %; Hematocrit 34.1 % (37.5-50.1); Immature Granulocytes % 0.3 % (0-4); Lymphocytes # 0.8 K/mcL (0.6-4.6); Lymphocytes % 11.7 %; Mean Corpuscular HGB Conc 32.3 g/dL (31.6-35.5); Mean Corpuscular Hemoglobin 30.8 pg (28.0-33.3); Mean Corpuscular Volume 95.5 fL (83.0-100.0); Mean Platelet Volume 10.1 fL (9.4-12.4); Monocytes # 0.7 K/mcL (0.0-1.3); Monocytes % 9.5 %; Neutrophils # 5.3 K/mcL (1.6-8.9); Platelet Count 190 K/mcL (140-400); Red Blood Count 3.57 M/mcL (4.19-5.50); Red Cell Distribution Width 13.3 % (11.5-14.5)
[2017-03-25 06:55] LABS: % Iron Saturation 35 % (20-55); Alanine Aminotransferase 26 Units/L (7-52); Albumin 2.6 g/dL (3.5-5.7); Alkaline Phosphatase 44 Units/L (34-104); Aspartate Amino Transferase 16 Units/L (13-39); BUN/Creatinine Ratio 18 (6-26); Bilirubin,Total 0.2 mg/dL (0.3-1.0); Blood Urea Nitrogen 17 mg/dL (8-23); Calcium 7.8 mg/dL (8.6-10.3); Carbon Dioxide 26 mEq/L (23-29); Chloride 108 mEq/L (98-107); Globulin 2.5 g/dL (2.4-3.5); Glucose 104 mg/dL (70-105); Iron 80 mcg/dL (65-175); Osmolality,Calculated 288 (280-300); Potassium 4.1 mEq/L (3.5-5.1); Sodium 138 mEq/L (136-145); Total Protein 5.1 g/dL (6.4-8.9); Transferrin 161 mg/dL (203-362); eGFR For African Americans > 60 (> 60); eGFR For Non-African Americans > 60 (> 60)
[2017-03-25 07:17] LABS: Folate 8.2 ng/mL (3.0-16.0)
[2017-03-25] MEDS: *HR* Heparin 5,000 UNIT/ML VIAL SQ SCH ×2 (08:47→15:48)
[2017-03-25] MEDS: predniSONE 20 MG TABLET PO SCH ×2 (08:48→15:48)
[2017-03-25] MEDS: Aspirin 81 MG TAB.CHEW PO SCH (08:48)
[2017-03-25] MEDS: Cefepime HCl 2,000 MG in Water for inj. (sterile) 20 ML 20 ML IVP SCH ×2 (08:48→15:48)
[2017-03-25] MEDS: Vancomycin 1,000 MG in D5% in Water 250 ML IVPB SCH ×2 (08:49→18:54)
[2017-03-25] MEDS: Primidone 50 MG TABLET PO SCH (08:49)
[2017-03-25] MEDS: Famotidine 20 MG TABLET PO SCH (08:49)
[2017-03-25] MEDS: Doxycycline 100 MG CAPSULE PO SCH (08:49)
[2017-03-25] MEDS: Budesonide/Formoterol 160/4.5 MDI IH SCH ×2 (10:03→22:51)
--- NOTE | 2017-03-25 11:41 | Gastroenterology Consult Note ---
<Charo Ceja - Last Filed: 03/25/17 11:39> Date of Encounter: 03/25/17 Time of Encounter: 10:30 - Assessment and plan (1) Anemia Status: Acute Assessment and plan: 66 year old with multiple comorbid conditions who has had drop in hemoglobin. He denies any abdominal symptoms or bloody, tarry stools. He has never had colonoscopy. Will schedule for outpatient scopes once pneumonia is improved. Qualifiers: Anemia type: unspecified type Qualified Code(s): D64.9 - Anemia, unspecified - Time Spent With Patient Total time spent is greater than 50% in coordination of care (as documented) at patient's floor/unit and/or counseling patient: GI History of Present Illness - Data of Consult Patient: new to practice Consult date: 03/25/17 Requesting Physician: Newton Hightower MD - Consult Narrative Reason for consult: anemia History of present illness: Mr. Steven is a 66 year old male with medical hx of COPD, CVA, atrial defect and HTN. He presents from ED with chief complaint of chest congestion/discomfort , shortness of breath, and dyspnea for the past several days. He was admitted on February 27 for 11 days w/dx of flu and discharged to [facility]. He denies fever, chills, nausea, vomiting, headache, changes in vision, abdominal pain, chest pain, palpitations, diarrhea, constipation, numbness, tingling, dizziness, pre-syncope, or syncope. He has had drop in hgb forom 14.5 in February to . He denies any bloody or tarry stools. He denies diarrhea. He has occasional constipation and takes docusate as needed. He has occasional GERD and is controlled on omeprazole at home. He has ate breakfast this morning. Colonoscopy: denies EGD: denies NSAIDS/ASA: ASA 81 mg Anticoagulants: none Past Med Surg Social Fam HX - Past Medical History Medical history: COPD, CVA, hyperlipidemia, hypertension Psychiatric history: anxiety, depression - Past Surgical History Surgical History: other - Social History Smoking Status: Current some day smoker Packs per day: 2-3 filtered cigars daily Smokeless Tobacco Status: No Alcohol use: none Drug use: none - Family History Brother Race: Family Member Ethnicity: Non- Living Status: Age at : 36 Cause of : Alcoholism Hx Family Psychosocial Disorders: Yes (EtOH abuse) Mother Adopted: No Race: Family Member Ethnicity: Non- Living Status: Age at : 42 Cause of : Lung cancer Hx Family Cardiac Disorders: No Hx Family Respiratory Disorders: No Hx Family Cancer: Yes (Lung) Hx Family GI Disorders: No Hx Family Genitourinary Disorders: No Hx Family Endocrine Disorder: No Hx Family Musculoskeletal Disorders: No Hx Family Neuromuscular Disorders: No Hx Family Neurologic Disorders: No Hx Family HEENT Disorders: No Hx Family Autoimmune Disorders: No Hx Family Reproductive Disorders: No Hx Family Psychosocial Disorders: No Hx Family Medical Disorders: No Father Adopted: No Race: Family Member Ethnicity: Non- Living Status: Age at : 45 Cause of : Emphysema Hx Family Cardiac Disorders: No Hx Family Respiratory Disorders: Yes (Emphysema from tobacco abuse) Hx Family Cancer: No Hx Family GI Disorders: No Hx Family Genitourinary Disorders: No Hx Family Endocrine Disorder: No Hx Family Musculoskeletal Disorders: No Hx Family Neuromuscular Disorders: No Hx Family Neurologic Disorders: No Hx Family HEENT Disorders: No Hx Family Autoimmune Disorders: No Hx Family Reproductive Disorders: No Hx Family Psychosocial Disorders: No Hx Family Medical Disorders: No Review of Systems: GI: as per [facility] GENERAL: denies fever, has some chills EYES: denies yellow discoloration ENT: denies pain with swallowing or difficulty swallowing CARDIO: see HPI RESP: No Shortness of breath with exertion : denies change in color of urine NEURO: weakness HEME: Denies any bruising MS: chronic joint and back pain. DERM: denies rash or itching PSYCH: history of anxiety or depression - Constitutional Vitals: Temp Pulse Resp BP Pulse Ox 98.1 F 60 15 123/78 98 03/25/17 07:12 03/25/17 07:12 03/25/17 07:12 03/25/17 07:12 03/25/17 07:12 Exam: CONSTITUTIONAL:~alert, no acute distress.~HEAD:~normocephalic.~EYES:~no jaundice.~NECK:~no obvious swelling.~HEART:~regular rate and rhythm, no murmurs. ~LUNGS:~bilateral good air entry.~ABDOMEN:~non distended, soft, non tender, no masses papable, no organomegaly.~RECTAL EXAM:~Deferred.~EXTREMITIES:~no clubbing , cyanosis or edema.~SKIN:~no stigmata of chronic liver disease.~NEUROLOGIC:~no obvious focal defect.~~~~ Results - Labs CBC & Chem 7: 03/25/17 06:19 03/25/17 06:19 Labs: Last Result Calcium 7.8 mg/dL (8.6-10.3) L 03/25/17 06:19 Iron 80 mcg/dL (65-175) 03/25/17 06:19 % Saturation 35 % (20-55) 03/25/17 06:19 Transferrin 161 mg/dL (203-362) L 03/25/17 06:19 Troponin I < 0.03 ng/mL (< 0.04) 03/23/17 08:16 Triglycerides 62 mg/dL (< 150) 03/24/17 05:22 Vitamin B12 429 pg/mL (250-1100) 03/25/17 06:19 Folate 8.2 ng/mL (3.0-16.0) 03/25/17 06:19 Stool Occult Blood Positive (Negative) A 03/23/17 17:30 Entire Visit Hgb 11.0 g/dL (12.9-16.9) L 03/25/17 06:19 Hct 34.1 % (37.5-50.1) L 03/25/17 06:19 Total Bilirubin 0.2 mg/dL (0.3-1.0) L 03/25/17 06:19 AST 16 Units/L (13-39) 03/25/17 06:19 ALT 26 Units/L (7-52) 03/25/17 06:19 Folate 8.2 ng/mL (3.0-16.0) 03/25/17 06:19 Consult Discharge Plan - Plan Referrals: Talita Coffey, PSYCHOLOGY LECTURER [Primary Care Provider] - Prescriptions: Doxycycline 100 mg PO BID #12 capsule <Chris Munroe - Last Filed: 04/06/17 13:25> Date of Encounter: 03/25/17 - Time Spent With Patient Total time spent is greater than 50% in coordination of care (as documented) at patient's floor/unit and/or counseling patient: GI History of Present Illness - Data of Consult Requesting Physician: Newton Hightower MD - Consult Narrative History of present illness: Mr. Steven is a 66 year old male - Constitutional Vitals: Temp Pulse Resp BP Pulse Ox 97.8 F 64 16 111/71 98 03/25/17 15:59 03/25/17 15:59 03/25/17 15:59 03/25/17 15:59 03/25/17 15:59 Results - Labs CBC & Chem 7: 03/25/17 06:19 03/25/17 06:19 Labs: Last Result Calcium 7.8 mg/dL (8.6-10.3) L 03/25/17 06:19 Iron 80 mcg/dL (65-175) 03/25/17 06:19 % Saturation 35 % (20-55) 03/25/17 06:19 Transferrin 161 mg/dL (203-362) L 03/25/17 06:19 Troponin I < 0.03 ng/mL (< 0.04) 03/23/17 08:16 Triglycerides 62 mg/dL (< 150) 03/24/17 05:22 Vitamin B12 429 pg/mL (250-1100) 03/25/17 06:19 Folate 8.2 ng/mL (3.0-16.0) 03/25/17 06:19 Stool Occult Blood Positive (Negative) A 03/23/17 17:30 Entire Visit Hgb 11.0 g/dL (12.9-16.9) L 03/25/17 06:19 Hct 34.1 % (37.5-50.1) L 03/25/17 06:19 Total Bilirubin 0.2 mg/dL (0.3-1.0) L 03/25/17 06:19 AST 16 Units/L (13-39) 03/25/17 06:19 ALT 26 Units/L (7-52) 03/25/17 06:19 Folate 8.2 ng/mL (3.0-16.0) 03/25/17 06:19 - Attending Attestation I have personally performed a face to face evaluation on this patient. I have reviewed and agree with the care plan. History and Exam by me shows:pneumonia. Plan outpatient work up. Thank you.
--- NOTE | 2017-03-25 12:08 | Discharge Summary ---
Date of Encounter: 03/25/17 Time of Encounter: 11:05 - Discharge Diagnosis (1) HCAP (healthcare-associated pneumonia) Priority: Primary Status: Acute Comments: Patient was admitted in February for flu, after 11 days was sent to [facility]. He developed shortness of breath, dyspnea, productive cough and states that he told the nursing staff for multiple days that he needed to come to the emergency room and they were hesitant to send him. Patient insists that he is still septic from one year ago and he has never gotten better. X-ray showed emphysema and patchy bibasilar airspace opacities that appears similar to chest x-ray from 03/07/2017. Evolving pneumonia cannot be excluded. Patient has no sepsis criteria Legionella and strep pneumo antigens were negative, sputum culture was negative. Patient is being treated with vancomycin and cefepime and by mouth doxycycline, will continue at [facility]. PowerGlyde is being placed. We will continue oxygen, DuoNeb nebs and prednisone at [facility]CF. Pt with faint wheezing in post bases, he is in no distress. He is wearing supplemental 02 and will continue at [facility]CF. He has a productive cough with off white sputum. He has no fever, chills, diaphoresis. (2) COPD (chronic obstructive pulmonary disease) Priority: Secondary Status: Chronic Comments: Plan as above. Qualifiers: COPD type: unspecified COPD Qualified Code(s): J44.9 - Chronic obstructive pulmonary disease, unspecified (3) Hypertension Priority: Secondary Status: Chronic Comments: chronic. Continue home medications. Qualifiers: Hypertension type: essential hypertension Qualified Code(s): I10 - Essential (primary) hypertension (4) HLD (hyperlipidemia) Priority: Secondary Status: Chronic Comments: Chronic. Continue home medications. Qualifiers: Hyperlipidemia type: pure hypercholesterolemia Qualified Code(s): E78.00 - Pure hypercholesterolemia, unspecified; E78.0 - Pure hypercholesterolemia (5) Anxiety Priority: Secondary Status: Chronic Comments: Chronic. Continue home medications. (6) Cough with sputum Priority: Secondary Status: Acute Comments: Plan as above. (7) Abnormal hemoglobin (Hgb) Priority: Secondary Status: Chronic Comments: Stool occult blood was positive. Hemoglobin is 11.0. Patient has no signs of bleeding and denies dark tarry stools or abdominal pain. Iron studies, B12, folate are WNL. GI was consulted, will follow up with pt and colonoscopy outpatient. (8) DVT prophylaxis Priority: Secondary Status: Acute Comments: Heparin SQ BID - Discharge Medications Prescriptions: Doxycycline 100 mg PO BID #12 capsule Home Medications: Lovastatin [Mevacor] 40 mg PO HS 01/25/16 [History] Mometasone/Formoterol [Dulera 200 Mcg/5 Mcg Inhaler] 2 puff IH BID 01/25/16 [ History] Metoprolol [Lopressor] 25 mg PO BID #60 tablet 04/14/16 [Rx] Aspirin 81 mg PO DAILY #30 tab.chew 05/20/16 [Rx] Acetaminophen [Tylenol] 500 mg PO Q6H PRN 08/26/16 [History] Primidone [Mysoline] 50 mg PO BID 08/26/16 [History] Calcium Carbonate/Vitamin D3 [Calcium 600-Vit D3 400 Tablet] 1 tab PO BID [History] Theophylline Anhydrous [Curt-24] 100 mg PO DAILY 10/04/16 [History] Docusate [Colace] 100 mg PO BID PRN 11/02/16 [History] Roflumilast [Daliresp] 500 mcg PO DAILY 11/02/16 [History] Buspirone HCl [Buspar] 15 mg PO BID 02/28/17 [History] Famotidine [Pepcid] 20 mg PO DAILY 02/28/17 [History] GuaiFENesin ER [Mucinex] 600 mg PO Q12H 02/28/17 [History] Ipratropium/Albuterol Neb [Duoneb] 3 ml IH Q6H PRN 02/28/17 [History] Tiotropium [Spiriva] 18 mcg IH 0700 03/23/17 [History] Doxycycline 100 mg PO BID #12 capsule 03/25/17 [Rx] Ipratropium/Albuterol Neb [Duoneb] 3 ml IH [id number] inhsol 03/25/17 [Rx] predniSONE [PredniSONE] 20 mg PO BIDWM tablet 03/25/17 [Rx] Allergies/Adverse Reactions: 3 Allergy/AdvReac Type Severity Reaction Status Date / Time azithromycin [From Zithromax] AdvReac See Verified 03/23/17 07:44 Comments hydrochlorothiazide AdvReac Difficulty Verified 03/23/17 07:44 Breathing ibuprofen [From Motrin] AdvReac Gastrointestinal Verified 03/23/17 07:44 Upset levofloxacin [From Levaquin] AdvReac See Verified 03/23/17 07:44 Comments Date of admission: 03/23/17 13:03 Primary care physician: Talita Coffey CNP Consults: 03/25/17 07:43 Consult to Gastroenterology [CONS] Routine Consulting Provider: Gastroenterology Gordon Reason for Consult: Anemia and positive stool occult blood. Iron studies, B12 , Folate normal. Hgb 12.6-11.0 since 03/23. Call Completed: Yes 03/25/17 11:25 Consult to Urology [CONS] Routine Consulting Provider: Urology Mary Reason for Consult: Urinary retention with elevated PSA. Spoke with Dr. Kong. Time Notified: 11:26 Call Completed: Yes Discharging clinician: Almaz Cohen Anticipated date of discharge: 03/25/17 - Patient Status Disposition: Transfer SNF Condition: Good Functional capacity at discharge: uses cane/walker Overall status at discharge: patient is progressing back to baseline - Discharge Instructions Follow Up With: Talita Coffey CNP [Primary Care Provider] - - Diet and Activity Activity: as per physical therapy Diet: advance to your usual diet Hospital course: Mr. Steven is a 66 year old male with PMH of anxiety, HLD, HTN, COPD who presents to the ED with c/o increased SOB. Pt with suspected evolving pneumonia. He is being treated with PO doxycycline, IV Vancomycin and IV Cefepime. He is getting Duonebs, po steroids, and 02, as well as his home medications. He will continue the IV medications at the ECF. He is stable, vitals are WNL and pt is wearing 3L 02, maintaining sats at 99-100%. Pt has mild anemia and a positive stool occult blood, has been seen by GI and will be able to follow up with GI outpatient for evaluation and possible colonoscopy. Pt has been seen by urology for elevated PSA and difficulty urinating. Patient had a postvoid bladder scan of 0 mL's. PSA is probably falsely elevated due to recent Arguelles catheter placement. Patient will follow-up in the office with urology for further testing and evaluation. Patient is stable and appropriate for discharge and will return to [facility] with IV antibiotics. - Time Spent with Patient Total time spent providing and/or coordinating discharge services: Less than 30 minutes - Constitutional Vitals: Temp Pulse Resp BP Pulse Ox 97.4 F L 59 17 120/68 99 03/25/17 11:50 03/25/17 11:50 03/25/17 11:50 03/25/17 11:50 03/25/17 11:50 General appearance: Present: cooperative, mild distress, A&O X 3, pleasant, no acute distress, answers questions appropriately - Head Head exam: Present: atraumatic, normal inspection, normocephalic - Eye Eye exam: Present: normal appearance, conjuntiva pink, sclera anicteric - Neck Neck exam general surgery: Present: supple, trachea midline. Absent: lymphadenopathy, tenderness - Respiratory Respiratory exam: Present: CTAB. Absent: accessory muscle use, rales, rhonchi, wheezes - Cardiovascular Cardiovascular exam: Present: RRR, +S1, +S2. Absent: diastolic murmur, gallop, rubs, systolic murmur - GI/Abdominal GI/Abdominal exam: Present: normal bowel sounds, soft. Absent: distended, hepatomegaly, tenderness - Extremities Exam Extremities exam: Present: normal inspection, warm. Absent: calf tenderness, cyanotic, pedal edema - Neurological Exam Neurological exam: Present: alert, oriented X3, no focal deficits. Absent: facial droop, speech deficit - Skin Skin exam: Present: dry, intact, normal color, warm. Absent: rash
[2017-03-25 16:00] VITALS: BP 111/71
[2017-03-25] MEDS ORDERED: hydrALAZINE 10 MG TABLET PO PRN (17:05)
--- NOTE | 2017-03-25 17:13 | Urology - Consult Note ---
Date of Encounter: 03/25/17 Time of Encounter: 17:12 - Assessment and Plan (1) Elevated PSA Current Visit: Yes Status: Acute Assessment and plan: We will plan on having the patient follow up with me in 2-3 weeks for repeat PSA. I would not have recommended checking a PSA this closely to a catheter placement. This can falsely elevate the PSA test. (2) Urinary retention Current Visit: Yes Status: Acute Assessment and plan: Patient had bladder scan today which revealed post for residual of 0. Patient satisfied with how he is emptying his bladder. Urology CN:HPI Consult date: 03/25/17 Requesting physician: Almaz Cohen History of present illness: Ellis is a 66-year-old male with a history of urinary retention. Patient was evaluated by me in mid February for this problem. He failed to follow up after this episode. Patient now admitted for pneumonia. Patient had PSA drawn which was slightly above 15 area unsure why PSA was drawn. Minimal urinary symptoms at this time. Past Med Surg Social Fam HX - Past Medical History Medical history: COPD, CVA, hyperlipidemia, hypertension Psychiatric history: anxiety, depression - Past Surgical History Surgical History: other - Social History Smoking Status: Current some day smoker Packs per day: 2-3 filtered cigars daily Smokeless Tobacco Status: No Alcohol use: none Drug use: none - Family History Brother Race: Family Member Ethnicity: Non- Living Status: Age at : 36 Cause of : Alcoholism Hx Family Psychosocial Disorders: Yes (EtOH abuse) Mother Adopted: No Race: Family Member Ethnicity: Non- Living Status: Age at : 42 Cause of : Lung cancer Hx Family Cardiac Disorders: No Hx Family Respiratory Disorders: No Hx Family Cancer: Yes (Lung) Hx Family GI Disorders: No Hx Family Genitourinary Disorders: No Hx Family Endocrine Disorder: No Hx Family Musculoskeletal Disorders: No Hx Family Neuromuscular Disorders: No Hx Family Neurologic Disorders: No Hx Family HEENT Disorders: No Hx Family Autoimmune Disorders: No Hx Family Reproductive Disorders: No Hx Family Psychosocial Disorders: No Hx Family Medical Disorders: No Father Adopted: No Race: Family Member Ethnicity: Non- Living Status: Age at : 45 Cause of : Emphysema Hx Family Cardiac Disorders: No Hx Family Respiratory Disorders: Yes (Emphysema from tobacco abuse) Hx Family Cancer: No Hx Family GI Disorders: No Hx Family Genitourinary Disorders: No Hx Family Endocrine Disorder: No Hx Family Musculoskeletal Disorders: No Hx Family Neuromuscular Disorders: No Hx Family Neurologic Disorders: No Hx Family HEENT Disorders: No Hx Family Autoimmune Disorders: No Hx Family Reproductive Disorders: No Hx Family Psychosocial Disorders: No Hx Family Medical Disorders: No Medications and Allergies Lovastatin [Mevacor] 40 mg PO HS 01/25/16 [History] Mometasone/Formoterol [Dulera 200 Mcg/5 Mcg Inhaler] 2 puff IH BID 01/25/16 [ History] Metoprolol [Lopressor] 25 mg PO BID #60 tablet 04/14/16 [Rx] Aspirin 81 mg PO DAILY #30 tab.chew 05/20/16 [Rx] Acetaminophen [Tylenol] 500 mg PO Q6H PRN 08/26/16 [History] Primidone [Mysoline] 50 mg PO BID 08/26/16 [History] Calcium Carbonate/Vitamin D3 [Calcium 600-Vit D3 400 Tablet] 1 tab PO BID [History] Theophylline Anhydrous [Curt-24] 100 mg PO DAILY 10/04/16 [History] Docusate [Colace] 100 mg PO BID PRN 11/02/16 [History] Roflumilast [Daliresp] 500 mcg PO DAILY 11/02/16 [History] Buspirone HCl [Buspar] 15 mg PO BID 02/28/17 [History] Famotidine [Pepcid] 20 mg PO DAILY 02/28/17 [History] GuaiFENesin ER [Mucinex] 600 mg PO Q12H 02/28/17 [History] Ipratropium/Albuterol Neb [Duoneb] 3 ml IH Q6H PRN 02/28/17 [History] Tiotropium [Spiriva] 18 mcg IH 0700 03/23/17 [History] Doxycycline 100 mg PO BID #12 capsule 03/25/17 [Rx] Ipratropium/Albuterol Neb [Duoneb] 3 ml IH [id number] inhsol 03/25/17 [Rx] predniSONE [PredniSONE] 20 mg PO BIDWM tablet 03/25/17 [Rx] 3 Allergy/AdvReac Type Severity Reaction Status Date / Time azithromycin [From Zithromax] AdvReac See Verified 03/23/17 07:44 Comments hydrochlorothiazide AdvReac Difficulty Verified 03/23/17 07:44 Breathing ibuprofen [From Motrin] AdvReac Gastrointestinal Verified 03/23/17 07:44 Upset levofloxacin [From Levaquin] AdvReac See Verified 03/23/17 07:44 Comments Review of Systems - Constitutional no chills, no fever(s) - EENT Nose, mouth and throat: no throat swelling - Cardiovascular no chest pain - Respiratory no cough - Gastrointestinal no abdominal pain - Genitourinary as per HPI - Musculoskeletal no back pain - Integumentary no erythema - Neurological no confusion - Psychiatric no anxiety - Hematologic/Lymphatic no easy bleeding - Allergic/Immunologic no throat swelling Exam Initial Vital Signs Temp Pulse Resp BP Pulse Ox 97.9 F 75 16 149/92 97 03/23/17 07:37 03/23/17 07:37 03/23/17 07:37 03/23/17 07:37 03/23/17 07:37 - General physical appearance Present: well nourished - Eyes Present: PERRL - ENT Present: normal nares - Neck Present: no lymphadenopathy - Respiratory Present: normal respiratory effort - Cardiovascular Cardiovascular exam IM: RRR - Abdomen Abdomen: Present: soft. Absent: masses - Integumentary Present: no rash, no abnormal pigmentation - Neurologic Present: normal coordination Urology Results - Labs 03/25/17 06:19 03/25/17 06:19 Abnormal lab results RBC 3.57 M/mcL (4.19-5.50) L 03/25/17 06:19 Hgb 11.0 g/dL (12.9-16.9) L 03/25/17 06:19 Hct 34.1 % (37.5-50.1) L 03/25/17 06:19 Chloride 108 mEq/L (98-107) H 03/25/17 06:19 Calcium 7.8 mg/dL (8.6-10.3) L 03/25/17 06:19 Transferrin 161 mg/dL (203-362) L 03/25/17 06:19 Total Bilirubin 0.2 mg/dL (0.3-1.0) L 03/25/17 06:19 Serum Total Protein 5.1 g/dL (6.4-8.9) L 03/25/17 06:19 Albumin 2.6 g/dL (3.5-5.7) L 03/25/17 06:19 Albumin/Globulin Ratio 1.0 (1.1-2.2) L 03/25/17 06:19 Prostate Specific Ag 15.49 ng/mL (Less than 4.00) H 03/24/17 05:22 Stool Occult Blood Positive (Negative) A 03/23/17 17:30 Diabetes panel 03/25/17 Range/Units 06:19 Sodium 138 (136-145) mEq/L Potassium 4.1 (3.5-5.1) mEq/L Chloride 108 H (98-107) mEq/L Carbon Dioxide 26 (23-29) mEq/L BUN 17 (8-23) mg/dL Creatinine 0.93 (0.70-1.30) mg/dL Glucose 104 (70-105) mg/dL Calcium 7.8 L (8.6-10.3) mg/dL AST 16 (13-39) Units/L ALT 26 (7-52) Units/L Alkaline Phosphatase 44 (34-104) Units/L Albumin 2.6 L (3.5-5.7) g/dL Calcium panel 03/25/17 Range/Units 06:19 Calcium 7.8 L (8.6-10.3) mg/dL Albumin 2.6 L (3.5-5.7) g/dL Pituitary panel 03/25/17 Range/Units 06:19 Sodium 138 (136-145) mEq/L Potassium 4.1 (3.5-5.1) mEq/L Chloride 108 H (98-107) mEq/L Carbon Dioxide 26 (23-29) mEq/L BUN 17 (8-23) mg/dL Creatinine 0.93 (0.70-1.30) mg/dL Glucose 104 (70-105) mg/dL Calcium 7.8 L (8.6-10.3) mg/dL Adrenal panel 03/25/17 Range/Units 06:19 Sodium 138 (136-145) mEq/L Potassium 4.1 (3.5-5.1) mEq/L Chloride 108 H (98-107) mEq/L Carbon Dioxide 26 (23-29) mEq/L BUN 17 (8-23) mg/dL Creatinine 0.93 (0.70-1.30) mg/dL Glucose 104 (70-105) mg/dL Calcium 7.8 L (8.6-10.3) mg/dL Total Bilirubin 0.2 L (0.3-1.0) mg/dL AST 16 (13-39) Units/L ALT 26 (7-52) Units/L Alkaline Phosphatase 44 (34-104) Units/L Albumin 2.6 L (3.5-5.7) g/dL All other labs normal. Consult Discharge Plan - Plan Referrals: Talita Coffey, PAN[facility] STEWARD/STEWARDESS [Primary Care Provider] - Prescriptions: Doxycycline 100 mg PO BID #12 capsule
--- NOTE | 2017-03-25 18:36 | Physician Discharge Referral ---
ExtendedCare Referral Info Transfer To: [facility] Provider in Charge after Transfer: PCP Institutional Level of Care: Skilled - Diagnosis (1) HCAP (healthcare-associated pneumonia) Priority: Primary Status: Acute (2) COPD (chronic obstructive pulmonary disease) Priority: Secondary Status: Chronic (3) Hypertension Priority: Secondary Status: Chronic (4) HLD (hyperlipidemia) Priority: Secondary Status: Chronic (5) Anxiety Priority: Secondary Status: Chronic (6) Cough with sputum Priority: Secondary Status: Acute (7) Abnormal hemoglobin (Hgb) Priority: Secondary Status: Chronic (8) DVT prophylaxis Priority: Secondary Status: Acute Prognosis: Good - Transfer Medications Prescriptions: Doxycycline 100 mg PO BID #12 capsule Home Medications: Lovastatin [Mevacor] 40 mg PO HS 01/25/16 [History] Mometasone/Formoterol [Dulera 200 Mcg/5 Mcg Inhaler] 2 puff IH BID 01/25/16 [ History] Metoprolol [Lopressor] 25 mg PO BID #60 tablet 04/14/16 [Rx] Aspirin 81 mg PO DAILY #30 tab.chew 05/20/16 [Rx] Acetaminophen [Tylenol] 500 mg PO Q6H PRN 08/26/16 [History] Primidone [Mysoline] 50 mg PO BID 08/26/16 [History] Calcium Carbonate/Vitamin D3 [Calcium 600-Vit D3 400 Tablet] 1 tab PO BID [History] Theophylline Anhydrous [Curt-24] 100 mg PO DAILY 10/04/16 [History] Docusate [Colace] 100 mg PO BID PRN 11/02/16 [History] Roflumilast [Daliresp] 500 mcg PO DAILY 11/02/16 [History] Buspirone HCl [Buspar] 15 mg PO BID 02/28/17 [History] Famotidine [Pepcid] 20 mg PO DAILY 02/28/17 [History] GuaiFENesin ER [Mucinex] 600 mg PO Q12H 02/28/17 [History] Ipratropium/Albuterol Neb [Duoneb] 3 ml IH Q6H PRN 02/28/17 [History] Tiotropium [Spiriva] 18 mcg IH 0700 03/23/17 [History] Doxycycline 100 mg PO BID #12 capsule 03/25/17 [Rx] Ipratropium/Albuterol Neb [Duoneb] 3 ml IH [id number] inhsol 03/25/17 [Rx] predniSONE [PredniSONE] 20 mg PO BIDWM tablet 03/25/17 [Rx] Allergies/Adverse Reactions: 3 Allergy/AdvReac Type Severity Reaction Status Date / Time azithromycin [From Zithromax] AdvReac See Verified 03/23/17 07:44 Comments hydrochlorothiazide AdvReac Difficulty Verified 03/23/17 07:44 Breathing ibuprofen [From Motrin] AdvReac Gastrointestinal Verified 03/23/17 07:44 Upset levofloxacin [From Levaquin] AdvReac See Verified 03/23/17 07:44 Comments - Respiratory Orders Oxygen / L per min Smoking Cessation: Smoking cessation has been advised. For more information, call the [employer] Tobacco Quit Line at 3-676-MLLB-NOW. - Lab Orders Lab Orders: CBC, U/A, Torey 17 - Ancillary Orders May use pressure relief devices daily prn, May consult with Dentist, Broke Beater Machine Operator, Restrictive Preparation Operator PRN - Advance Directives Code Status: Full Code - Mobility Orders Chair, Ambulate - Rehabiliation Orders Rehab Potential: Good Rehab Orders: ROM Exercises, Evaluation for Physical Therapy, Evaluation for Occupational Therapy, Evaluation for Speech Therapy - Treatments Skin tear care topically daily PRN per policy, May check for fecal impaction rectally daily PRN, Fleet enema rectally every other day PRN cleansing purposes - Diet Orders Regular CERTIFICATION: I certify that the transfer of the above named patient to an Extended Care Facility is necessary for the continuing treatment of the diagnosis listed. The above information is true and accurate reflection of patient's current condition. Confidential - Redisclosure prohibited without a patient's written consent.
== END 2017-03-25 21:00 | DRG 190 ==
LOC: EMEROO 07:36 → 2ANU 07:36 → 3BNU 13:02
PROVIDERS: ADMIT Pediatrics; ATTEND Internal Medicine

== ENCOUNTER 2017-04-22 18:09 | Inpatient (IN) ==
--- NOTE | 2017-04-22 18:51 | Emergency Department Note ---
Disposition Clinical Impression: Acute kidney injury, Bilateral lower extremity edema Disposition: Admitted As Inpatient Condition: Good Time of Disposition: 20:52 Extremity Problem HPI - General Chief complaint: ED Extremity Problem,Nontraumatic Stated complaint: Leg edema with pain Time Seen by Provider: 04/22/17 18:30 Source: patient Limitations: no limitations Nursing Notes Reviewed: Yes Vital Signs Reviewed: Yes - History of Present Illness HPI Narrative: Mr. Amor, 56-year-old male, presents for evaluation of bilateral lower extremity swelling. Noticed 3-4 days ago. Patient is currently at [facility] for rehabilitation. He was previously on Lasix 20 mg daily when necessary lower extremity swelling. He has not been on his Lasix for some time. He discussed this with the physician at [facility] and, 2 days ago, they began him on his Lasix home dose. Patient notes the swelling has improved in this 2 day interval. Patient has a healing wound on the anterior distal left tibia which is being cared for by nursing [facility]. Concerned it may be developing cellulitis as it is painful to weight-bear on his left lower extremity. At baseline, he ambulates with a cane. PMH: Emphysema with COPD; 2 L nasal cannula continuous. ROS: Positive: As above Negative: Fever, chills, nausea, vomiting, chest pains, palpitations, trauma Pain Scale: 1 - Related Data Home Medications Medication Instructions Recorded Confirmed Mometasone/Formoterol [Dulera 200 2 puff IH BID 01/25/16 04/22/17 Mcg/5 Mcg Inhaler] Acetaminophen [Tylenol] 500 mg PO Q6H PRN 08/26/16 04/22/17 Primidone [Mysoline] 50 mg PO BID 08/26/16 04/22/17 Calcium Carbonate/Vitamin D3 1 tab PO BID 10/04/16 04/22/17 [Calcium 600-Vit D3 400 Tablet] Theophylline Anhydrous [Curt-24] 100 mg PO DAILY 10/04/16 04/22/17 Docusate [Colace] 100 mg PO BID PRN 11/02/16 04/22/17 Roflumilast [Daliresp] 500 mcg PO DAILY 11/02/16 04/22/17 Buspirone HCl [Buspar] 15 mg PO BID 02/28/17 04/22/17 Famotidine [Pepcid] 20 mg PO DAILY 02/28/17 04/22/17 GuaiFENesin ER [Mucinex] 600 mg PO Q12H 02/28/17 04/22/17 Tiotropium [Spiriva] 18 mcg IH 0700 03/23/17 04/22/17 Ergocalciferol (VITAMIN D2) 50,000 unit PO FR 04/22/17 04/22/17 [Vitamin D2] Furosemide [Lasix] 40 mg PO DAILY 04/22/17 04/22/17 predniSONE [PredniSONE] 10 mg PO DAILY 04/22/17 04/22/17 Previous Rx's Medication Instructions Recorded Metoprolol [Lopressor] 25 mg PO BID #60 tablet 04/14/16 Aspirin 81 mg PO DAILY #30 tab.chew 05/20/16 Ipratropium/Albuterol Neb [Duoneb] 3 ml IH [id number] inhsol 03/25/17 Lidocaine Patch [Lidoderm 5% patch] 1 each TP DAILY PRN #7 adh..patch 04/01/17 Allergies Allergy/AdvReac Type Severity Reaction Status Date / Time azithromycin [From Zithromax] AdvReac See Verified 03/23/17 07:44 Comments hydrochlorothiazide AdvReac Difficulty Verified 03/23/17 07:44 Breathing ibuprofen [From Motrin] AdvReac Gastrointestinal Verified 03/23/17 07:44 Upset levofloxacin [From Levaquin] AdvReac See Verified 03/23/17 07:44 Comments All systems ED: reviewed and negative except as stated. Review of Systems: As Per HPI Past Medical History - Past Medical History Medical history: Reports: COPD, CVA, hyperlipidemia, hypertension Surgical history: Reports: other Psychiatric history: Reports: anxiety, depression - Social History Smoking Status: Current some day smoker Smokeless Tobacco Status: No Alcohol use: Reports: none Drug use: Reports: none Physical Exam Vital Signs Reviewed General: Patient is alert, oriented, and in no acute distress. HEENT: No facial asymmetry. Head is normocephalic and atraumatic. PERRLA, EOMI. oral mucosa moist. Trachea midline. Cardiovascular: Heart regular rate and rhythm without clicks, rubs, gallops, or murmurs. No JVD. PMI nondisplaced. Bilateral posterior tibial and dorsalis pedis pulses 2/4 and equal. 1+ pitting pedal edema equal bilaterally to just proximal of the ankle. Respiratory: Symmetric chest rise with poor respiratory effort. Prolonged x- ray phase. Bilateral breath sounds are globally diminished without wheezing, crackles, or rhonchi. Abdomen: Bowel sounds present normoactive x-4 quadrants. Abdomen is soft, nondistended, and nontender. No organomegaly noted. Musculoskeletal: Spontaneously moving all extremities. Skin: 1 cm diameter as sharp with overlying Steri-Strips on distal left anterior tibia; nonbleeding, no discharge, surrounding erythema and is nontender and extends to but not beyond his sock line. Neuro: Alert and oriented x4. Sensation light touch intact with decreased sensation bilaterally in the plantar surfaces. Psych: Patient's affect is appropriate for situation. - General Limitations: no limitations General appearance: alert, in no apparent distress Course Course Narrative: Patient presents for evaluation of bilateral lower extremity edema that has been slightly improving with Lasix. He is a history of acute kidney injury secondary to sepsis. Labwork returned showing acute kidney injury in the setting of volume overload with pedal edema. Additionally, he has peripheral vascular disease with ecchymosis overlying several of his left toes and left lateral aspect of his foot likely secondary to the injury just proximal to this ecchymosis. LARRY: Right brachial 160, right PT 180, right BP 180. Right PT/brachial 1.13. Right DP/brachial 1.11. Left brachial 160, left PT 173, left DP 180. Left PT/brachial 1.08. Left DP/ brachial 1.13 I discussed the patient with the hospitalist who agrees to accept the patient for continued evaluation and management for acute kidney injury in the setting of volume overload edema. Patient is clinically not in congestive heart failure. Vital Signs Temperature 97.6 F 04/22/17 18:12 Pulse Rate 85 04/22/17 18:12 Respiratory Rate 18 04/22/17 18:12 Blood Pressure 130/83 04/22/17 18:12 O2 Sat by Pulse Oximetry 96 04/22/17 18:12 Temperature 97.6 F 04/22/17 21:37 Pulse Rate 76 04/22/17 21:37 Respiratory Rate 18 04/22/17 21:37 Blood Pressure 168/96 04/22/17 21:37 O2 Sat by Pulse Oximetry 95 04/22/17 21:49 Oxygen Delivery Oxygen Delivery Room Air Extremity Problem, Nontraumati - Lab Data Lab results reviewed: Yes I reviewed the patient's lab results. Result diagrams: 04/22/17 19:07 04/22/17 19:07 Lab Results 04/22/17 04/22/17 04/22/17 Range/Units 19:07 19:07 19:07 WBC 6.5 (4.3-11.1) K/mcL RBC 4.52 (4.19-5.50) M/mcL Hgb 13.8 (12.9-16.9) g/dL Hct 44.0 (37.5-50.1) % MCV 97.3 (83.0-100.0) fL MCH 30.5 (28.0-33.3) pg MCHC 31.4 L (31.6-35.5) g/dL RDW 15.3 H (11.5-14.5) % Plt Count 171 (140-400) K/mcL MPV 9.5 (9.4-12.4) fL Immature Gran % 0.5 (0-4) % Seg Neutrophils % 71.6 % Lymphocytes % 14.3 % Monocytes % 12.8 % Eosinophils % 0.3 % Basophils % 0.5 % Neutrophils # 4.7 (1.6-8.9) K/mcL Lymphocytes # 0.9 (0.6-4.6) K/mcL Monocytes # 0.8 (0.0-1.3) K/mcL Eosinophils # 0.0 (0.0-0.6) K/mcL Basophils # 0.0 (0.0-0.2) K/mcL Sodium 141 (136-145) mEq/L Potassium 4.2 (3.5-5.1) mEq/L Chloride 101 (98-107) mEq/L Carbon Dioxide 35 H (23-29) mEq/L BUN 27 H (8-23) mg/dL Creatinine 1.41 H (0.70-1.30) mg/dL Est GFR ( Amer) > 60 (> 60) Est GFR (Non-Af Amer) 50 L (> 60) BUN/Creatinine Ratio 19 (6-26) Glucose 100 (70-105) mg/dL Calculated Osmolality 297 (280-300) Calcium 8.5 L (8.6-10.3) mg/dL Troponin I < 0.03 (< 0.04) ng/mL B-Natriuretic Peptide (Less than 100) pg/mL 04/22/17 Range/Units 19:07 WBC (4.3-11.1) K/mcL RBC (4.19-5.50) M/mcL Hgb (12.9-16.9) g/dL Hct (37.5-50.1) % MCV (83.0-100.0) fL MCH (28.0-33.3) pg MCHC (31.6-35.5) g/dL RDW (11.5-14.5) % Plt Count (140-400) K/mcL MPV (9.4-12.4) fL Immature Gran % (0-4) % Seg Neutrophils % % Lymphocytes % % Monocytes % % Eosinophils % % Basophils % % Neutrophils # (1.6-8.9) K/mcL Lymphocytes # (0.6-4.6) K/mcL Monocytes # (0.0-1.3) K/mcL Eosinophils # (0.0-0.6) K/mcL Basophils # (0.0-0.2) K/mcL Sodium (136-145) mEq/L Potassium (3.5-5.1) mEq/L Chloride (98-107) mEq/L Carbon Dioxide (23-29) mEq/L BUN (8-23) mg/dL Creatinine (0.70-1.30) mg/dL Est GFR ( Amer) (> 60) Est GFR (Non-Af Amer) (> 60) BUN/Creatinine Ratio (6-26) Glucose (70-105) mg/dL Calculated Osmolality (280-300) Calcium (8.6-10.3) mg/dL Troponin I (< 0.04) ng/mL B-Natriuretic Peptide 52 (Less than 100) pg/mL - EKG Data EKG attestation: Yes I reviewed and interpreted this EKG. EKG results narrative: EKG dated to April 2017 and 19:16 interpreted as sinus rhythm with a rate of 75. Normal intervals. Normal axis. Nonspecific ST-T wave changes. Compared to previous dated 03/23/2017 showing no acute change in comparison. Attestation Statement - Attestation Attestation: I, Chris Lunsford, examined this patient and my medical decision-making was reviewed with the INCLUSION SPECIALIST/PA/Advanced Practice Nurse/Resident Physician. I agree with the documented findings, disposition and treatment plan as described except to the extent set forth below. 56-year-old male presents emergency Department with concerns of bilateral lower extremity swelling. Patient states his symptoms have been worsening over the past few days. Patient has a history of congestive heart failure and generally takes Lasix 20 mg a day. Patient has not been given his Lasix at the correction facility. Patient also has a nonhealing wound on the lateral aspect of his leg distal left lower extremity which he sustained when he hit his leg on a wheelchair. Patient has difficulty ambulating secondary to the pain. Patient has acute kidney injury on his laboratory testing today. He is volume overloaded. He will be admitted to the hospital for further care and evaluation.
[2017-04-22 19:19] LABS: Basophils % 0.5 %; Eosinophils % 0.3 %; Hemoglobin 13.8 g/dL (12.9-16.9); Immature Granulocytes % 0.5 % (0-4); Lymphocytes # 0.9 K/mcL (0.6-4.6); Lymphocytes % 14.3 %; Mean Corpuscular HGB Conc 31.4 g/dL (31.6-35.5); Mean Corpuscular Hemoglobin 30.5 pg (28.0-33.3); Mean Corpuscular Volume 97.3 fL (83.0-100.0); Mean Platelet Volume 9.5 fL (9.4-12.4); Monocytes # 0.8 K/mcL (0.0-1.3); Monocytes % 12.8 %; Neutrophils # 4.7 K/mcL (1.6-8.9); Platelet Count 171 K/mcL (140-400); Red Blood Count 4.52 M/mcL (4.19-5.50); Red Cell Distribution Width 15.3 % (11.5-14.5); Segmented Neutrophils % 71.6 %
[2017-04-22 19:34] LABS: BUN/Creatinine Ratio 19 (6-26); Blood Urea Nitrogen 27 mg/dL (8-23); Calcium 8.5 mg/dL (8.6-10.3); Carbon Dioxide 35 mEq/L (23-29); Chloride 101 mEq/L (98-107); Glucose 100 mg/dL (70-105); Osmolality,Calculated 297 (280-300); Potassium 4.2 mEq/L (3.5-5.1); Sodium 141 mEq/L (136-145); eGFR For African Americans > 60 (> 60); eGFR For Non-African Americans 50 (> 60)
[2017-04-23] MEDS ORDERED: Naloxone 0.4 MG/ML INJ IVP PRN (00:01)
[2017-04-23] MEDS ORDERED: Acetaminophen 325 MG TABLET PO PRN (00:01)
[2017-04-23] MEDS ORDERED: traMADol 50 MG TABLET PO PRN (00:01)
--- NOTE | 2017-04-23 00:23 | Internal Med History&Physical ---
Date of Encounter: 04/22/17 Time of Encounter: 23:15 Assessment and Plan (1) Cellulitis of leg, left Current visit: Yes Status: Acute 1. Will order blood cultures. 2. Will place on Zyvox and Zosyn and monitor area of cellulitis. 3. Consult wound care for his lesion from his wheelchair accident. (2) Acute kidney injury Current visit: Yes Status: Acute 1. Likely due to intravascular volume depletion. 2. Stop Lasix and hydrate orally and intravenously. 3. Monitor I/O and renal function. 4. Adjust medications accordingly. (3) Bilateral lower extremity edema Current visit: Yes Status: Acute 1. Will check serum protein, albumin levels, and TSH. 2. Do not suspect any CHF at this time. 3. Likely due to low protein state (low oncotic pressure). 4. May need nutrition consult pending above labs. (4) DVT prophylaxis Current visit: No Status: Acute 1. Heparin SQ. Internal Medicine - H&P: HPI Chief complaint: leg swelling; redness on left leg Admitted From: Emergency Dept Plans for Post Hospital Care: Home History of present illness: Mr. Steven is a 66 year old male who presents with complaints of bilateral lower extremity edema, and redness, warmth, tenderness of his left leg. Because of increased swelling in his legs, he was started on Lasix at the [facility] where he currently resides for rehabilitation. He noticed his urine output decreasing but the edema persisting. He came to the ER for evaluation, and he was noted to have acute kidney injury. He was subsequently admitted to the hospitalist service. Patient did not receive any fluids or treatment in ER and just jsut admitted to the hospitalist service. Upon my assessment of the patient, I noticed a significant area in his left leg which appears to be acute cellulitis. It is warm, red, and tender. He states that the redness and warmth started a few days ago after he injured his foot/ leg on his wheelchair. He does have some mild bilateral edema. He states his urine output has been decreasing the last few days especially with Lasix. He feels and appears dehydrated. He was recently admitted for pneumonia and COPD, and he was in [facility] recovering with rehabilitation. He denies any fevers, worsening cough, or worsening dyspnea. He states his lung function and COPD are at their baseline presently. Past Med Surg Social Fam HX - Past Medical History Attestation: Yes The following information was validated with the patient. Source: patient, old records reviewed Medical history: COPD, CVA, hyperlipidemia, hypertension Psychiatric history: anxiety, depression - Past Surgical History Surgical History: other - Social History Smoking Status: Current some day smoker Smokeless Tobacco Status: No Alcohol use: none Drug use: none Current living situation: [facility] Activity Level: Uses cane/walker Recent Out of Country Travel Within the Last 8 Weeks: No - Family History Brother Family Member Ethnicity: Non- Living Status: Hx Family Medical Disorders: Yes (alcoholism) Mother Adopted: No Family Member Ethnicity: Non- Living Status: Hx Family Cardiac Disorders: No Hx Family Respiratory Disorders: No Hx Family Cancer: Yes (lung) Hx Family GI Disorders: No Hx Family Endocrine Disorder: No Hx Family Neuromuscular Disorders: No Hx Family Neurologic Disorders: No Hx Family HEENT Disorders: No Hx Family Autoimmune Disorders: No Father Adopted: No Family Member Ethnicity: Non- Living Status: Hx Family Cardiac Disorders: No Hx Family Respiratory Disorders: Yes (emphysemza) Hx Family Cancer: No Hx Family GI Disorders: No Hx Family Endocrine Disorder: No Hx Family Neuromuscular Disorders: No Hx Family Neurologic Disorders: No Hx Family HEENT Disorders: No Hx Family Autoimmune Disorders: No Internal Medicine - H&P: Meds Mometasone/Formoterol [Dulera 200 Mcg/5 Mcg Inhaler] 2 puff IH BID 01/25/16 [ History] Metoprolol [Lopressor] 25 mg PO BID #60 tablet 04/14/16 [Rx] Aspirin 81 mg PO DAILY #30 tab.chew 05/20/16 [Rx] Acetaminophen [Tylenol] 500 mg PO Q6H PRN 08/26/16 [History] Primidone [Mysoline] 50 mg PO BID 08/26/16 [History] Calcium Carbonate/Vitamin D3 [Calcium 600-Vit D3 400 Tablet] 1 tab PO BID [History] Theophylline Anhydrous [Curt-24] 100 mg PO DAILY 10/04/16 [History] Docusate [Colace] 100 mg PO BID PRN 11/02/16 [History] Roflumilast [Daliresp] 500 mcg PO DAILY 11/02/16 [History] Buspirone HCl [Buspar] 15 mg PO BID 02/28/17 [History] Famotidine [Pepcid] 20 mg PO DAILY 02/28/17 [History] GuaiFENesin ER [Mucinex] 600 mg PO Q12H 02/28/17 [History] Tiotropium [Spiriva] 18 mcg IH 0700 03/23/17 [History] Ipratropium/Albuterol Neb [Duoneb] 3 ml IH [id number] inhsol 03/25/17 [Rx] Lidocaine Patch [Lidoderm 5% patch] 1 each TP DAILY PRN #7 adh..patch 04/01/17 [ Rx] Ergocalciferol (VITAMIN D2) [Vitamin D2] 50,000 unit PO FR 04/22/17 [History] Furosemide [Lasix] 40 mg PO DAILY 04/22/17 [History] predniSONE [PredniSONE] 10 mg PO DAILY 04/22/17 [History] 3 Allergy/AdvReac Type Severity Reaction Status Date / Time azithromycin [From Zithromax] AdvReac See Verified 03/23/17 07:44 Comments hydrochlorothiazide AdvReac Difficulty Verified 03/23/17 07:44 Breathing ibuprofen [From Motrin] AdvReac Gastrointestinal Verified 03/23/17 07:44 Upset levofloxacin [From Levaquin] AdvReac See Verified 03/23/17 07:44 Comments - Constitutional Constitutional: no chills, no fever(s), no falls, no night sweats - EENT Eyes: no blurry vision, no change in vision Ears: no ear pain, no tinnitus Nose, mouth and throat: no nasal congestion, no sinus pressure, no sore throat - Cardiovascular Cardiovascular ROS IM: edema, no chest pain, no dyspnea, no dyspnea on exertion , no palpitations - Respiratory Respiratory: dyspnea (chronic), no cough, no hemoptysis, no dyspnea on exertion , no chest congestion, no excessive phlegm production, no change in phlegm color - Gastrointestinal Gastrointestinal: no abdominal pain, no diarrhea, no hematemesis, no hematochezia, no melena, no vomiting - Genitourinary Genitourinary ROS male: difficulty urinating (decreased urine output), no dysuria, no flank pain, no hematuria - Musculoskeletal Musculoskeletal ROS IM: no muscle cramps, no muscle weakness - Integumentary Integumentary IM: erythema (left lower leg with small skin tear), no rash, no jaundice - Neurological Neurological ROS: no dizziness, no focal weakness, no frequent falls, no headache(s) - Psychiatric Psychiatric: no anxiety, no depression - Endocrine Endocrine IM: no polydipsia, no polyphagia - Hematologic/Lymphatic Hematologic/Lymphatic: easy bruising - Allergic/Immunologic Allergic/Immunologic: wheezing (chronic), no GI upset with certain foods - Constitutional Vitals: Temp Pulse Resp BP Pulse Ox 97.6 F 76 18 168/96 95 04/22/17 21:37 04/22/17 21:37 04/22/17 21:37 04/22/17 21:37 04/22/17 21:49 General appearance: Present: cooperative, A&O X 3, pleasant, no acute distress, answers questions appropriately - Head Head exam: Present: atraumatic, normal inspection - Eye Eye exam: Present: EOMI, normal appearance, PERRL. Absent: scleral icterus Pupils: Present: normal accommodation - ENT ENT exam: Present: mucous membranes dry, normal exam - Neck Neck exam general surgery: Present: full ROM, supple. Absent: tenderness - Respiratory Respiratory exam: Present: prolonged expiratory phase, rhonchi, wheezes (faint wheezes). Absent: accessory muscle use, chest wall tenderness, rales, respiratory distress - Cardiovascular Cardiovascular exam: Present: RRR, +S1, +S2. Absent: diastolic murmur, JVD, systolic murmur - GI/Abdominal GI/Abdominal exam: Present: normal bowel sounds, soft. Absent: hepatomegaly, mass, splenomegaly, tenderness - Extremities Exam Extremities exam: Present: full ROM, normal capillary refill, pedal edema (1+ bilaterally), tenderness (area of redness, warmth, and tenderness along lower pretibial area). Absent: calf tenderness, joint swelling - Back Exam Back exam: Absent: CVA tenderness (L), CVA tenderness (R) - Neurological Exam Neurological exam: Present: alert, CN II-XII intact, oriented X3, no focal deficits - Psychiatric Psychiatric exam: Present: normal affect, normal mood - Skin Skin exam: Present: dry, erythema (LLE as noted above), warm Internal Med - H&P Results - Labs CBC & Chem 7: 04/22/17 19:07 04/22/17 19:07 - EKG Data -: EKG Interpreted by Myself - EKG Data EKG comments: 04/23/17 00:30 Sinus rhythm; no acute ST changes - Diagnostic Studies Chest x-ray Status: image reviewed by me (negative)
[2017-04-23] MEDS: 0.9 % Sodium Chloride 1,000 ML IVC SCH ×2 (00:49→11:06)
[2017-04-23 00:50] LABS: Basophils % 0.1 %; Eosinophils # 0.1 K/mcL (0.0-0.6); Eosinophils % 0.9 %; Hematocrit 40.1 % (37.5-50.1); Hemoglobin 12.7 g/dL (12.9-16.9); Immature Granulocytes % 0.6 % (0-4); Immature Platelets 3.6 % (1.1-6.1); Lymphocytes # 1.1 K/mcL (0.6-4.6); Lymphocytes % 15.6 %; Mean Corpuscular HGB Conc 31.7 g/dL (31.6-35.5); Mean Corpuscular Hemoglobin 31.1 pg (28.0-33.3); Mean Platelet Volume 9.8 fL (9.4-12.4); Monocytes # 0.7 K/mcL (0.0-1.3); Neutrophils # 4.9 K/mcL (1.6-8.9); Platelet Count 154 K/mcL (140-400); Red Blood Count 4.09 M/mcL (4.19-5.50); Red Cell Distribution Width 15.2 % (11.5-14.5); Segmented Neutrophils % 71.8 %
[2017-04-23 01:43] LABS: Alanine Aminotransferase 36 Units/L (7-52); Albumin/Globulin Ratio 1.4 (1.1-2.2); Alkaline Phosphatase 45 Units/L (34-104); Aspartate Amino Transferase 21 Units/L (13-39); BUN/Creatinine Ratio 21 (6-26); Bilirubin,Total 0.3 mg/dL (0.3-1.0); Blood Urea Nitrogen 27 mg/dL (8-23); Calcium 8.1 mg/dL (8.6-10.3); Carbon Dioxide 31 mEq/L (23-29); Chloride 104 mEq/L (98-107); Globulin 2.2 g/dL (2.4-3.5); Glucose 100 mg/dL (70-105); Magnesium 2.1 mg/dL (1.6-2.6); Osmolality,Calculated 295 (280-300); Potassium 3.7 mEq/L (3.5-5.1); Sodium 140 mEq/L (136-145); Total Protein 5.2 g/dL (6.4-8.9); eGFR For African Americans > 60 (> 60); eGFR For Non-African Americans 55 (> 60)
[2017-04-23] MEDS: Ipratropium/Albuterol Neb 3 ML IH SCH ×4 (03:38→22:31)
[2017-04-23 04:37] LABS: Bilirubin,Urine Negative (Negative); Blood,Urine Negative (Negative); Clarity,Urine Clear (Clear); Color,Urine Yellow (Yellow); Glucose,Urine (UA) Normal (Normal); Ketones,Urine Negative (Negative); Leukocyte Esterase,Urine Negative (Negative); Nitrite,Urine Negative (Negative); Protein,Urine Negative (Neg-Trace); Specific Gravity,Urine 1.024 (1.010-1.025); Urobilinogen,Urine Normal (Normal)
[2017-04-23] MEDS: *HR* Heparin 5,000 UNIT/ML VIAL SQ SCH ×2 (05:21→17:48)
[2017-04-23] MEDS: Famotidine 20 MG TABLET PO SCH (07:22)
[2017-04-23] MEDS: Aspirin 81 MG TAB.CHEW PO SCH (07:22)
[2017-04-23] MEDS: Primidone 50 MG TABLET PO SCH ×2 (07:22→21:02)
[2017-04-23] MEDS: predniSONE 10 MG TABLET PO SCH (07:22)
[2017-04-23] MEDS ORDERED: (Roflumilast [Daliresp] 500 MCG) PO SCH (09:00)
[2017-04-23] MEDS ORDERED: NON-FORMULARY MEDICATION 1 EACH EACH (Mometasone/Formoterol [Dulera 200 Mcg/5 Mcg Inhaler] IH SCH (09:00)
--- NOTE | 2017-04-23 10:37 | Internal Med Progress Note ---
Date of Encounter: 04/23/17 Time of Encounter: 10:05 - Assessment and plan (1) Cellulitis of leg, left Current Visit: Yes Status: Acute Assessment and plan: will obtain wound cultures continue IV abx (Vanco and Zosyn) f/u blood cultures pain control daily wound care will obtain b/l LE venous doppler to rule out DVT (2) Acute kidney injury Current Visit: Yes Status: Resolved Assessment and plan: Resolved renal function back to baseline will continue IV fluids x 2L total and hold lasix at this time (3) Bilateral lower extremity edema Current Visit: Yes Status: Acute Assessment and plan: likely secondary to low oncotic pressure will obtain b/l LE venous doppler (4) DVT prophylaxis Current Visit: No Status: Acute Assessment and plan: Heparin SQ (5) COPD (chronic obstructive pulmonary disease) Current Visit: No Status: Chronic Assessment and plan: not in acute exacerbation continue home meds Qualifiers: COPD type: unspecified COPD Qualified Code(s): J44.9 - Chronic obstructive pulmonary disease, unspecified (6) Tobacco abuse Current Visit: No Status: Chronic Assessment and plan: smoking cessation counseling provided pt refused nicotine replacement therapy - Subjective Interval history: Patient seen and examined at bedside. Resting in bed and reports of feeling mildly better compared to previous day. Noted to have b/l LE edema. Distal left lower extremity erythema noted, dressing intact. Mild calf tenderness on LLE. Will obtain Venous doppler to rule out DVT. - Constitutional Vitals: Temp Pulse Resp BP Pulse Ox 97.7 F 85 16 128/70 95 04/23/17 06:44 04/23/17 06:44 04/23/17 06:44 04/23/17 06:44 04/23/17 07:25 General appearance: Present: cooperative, A&O X 3, pleasant, no acute distress, answers questions appropriately - Head Head exam: Present: atraumatic, normocephalic - Eye Eye exam: Present: conjuntiva pink, sclera anicteric - Respiratory Respiratory exam: Present: CTAB. Absent: respiratory distress, wheezes - Cardiovascular Cardiovascular exam: Present: RRR, +S1, +S2. Absent: diastolic murmur, gallop, rubs, systolic murmur - GI/Abdominal GI/Abdominal exam: Present: normal bowel sounds, soft, no peritoneal signs. Absent: distended, tenderness - Extremities Exam Extremities exam: Present: calf tenderness (mild LLE calf tenderness), warm, radial pulses palpable and symmetrical (b/l LE edema, distal LLE dorsal surface erythema, open wound-dressing intact ) - Neurological Exam Neurological exam: Present: alert, oriented X3 - Psychiatric Psychiatric exam: Present: normal affect, normal mood Internal Medicine: Result - Labs CBC & Chem 7: 04/23/17 00:42 04/23/17 00:42 Labs: Short CBC 04/23/17 Range/Units 00:42 WBC 6.8 (4.3-11.1) K/mcL Hgb 12.7 L (12.9-16.9) g/dL Hct 40.1 (37.5-50.1) % Plt Count 154 (140-400) K/mcL Neutrophils # 4.9 (1.6-8.9) K/mcL BMP 04/23/17 00:42 Sodium 140 Potassium 3.7 Chloride 104 Carbon Dioxide 31 H BUN 27 H Creatinine 1.30 Glucose 100 Calcium 8.1 L Liver Function 04/23/17 Range/Units 00:42 Total Bilirubin 0.3 (0.3-1.0) mg/dL AST 21 (13-39) Units/L ALT 36 (7-52) Units/L Alkaline Phosphatase 45 (34-104) Units/L Albumin 3.0 L (3.5-5.7) g/dL Urine 04/23/17 Range/Units 04:12 Urine Color Yellow (Yellow) Urine Clarity Clear (Clear) Urine pH 6.0 (5.0-8.0) pH Units Ur Specific [place] 1.024 (1.010-1.025) Urine Protein Negative (Neg-Trace) mg/dL Urine Glucose (UA) Normal (Normal) mg/dL Consult Discharge Plan - Plan Referrals: Talita Coffey, LOCKSTITCH COAT JOINER [Primary Care Provider] -
[2017-04-23] MEDS ORDERED: Vancomycin 1,000 MG in D5% in Water 250 ML IVPB SCH ×2 (11:00→12:00)
[2017-04-23] MEDS: Tiotropium 18 MCG inhalation IH SCH (11:25)
[2017-04-24] MEDS: Ipratropium/Albuterol Neb 3 ML IH SCH ×4 (03:59→22:50)
[2017-04-24] MEDS: *HR* Heparin 5,000 UNIT/ML VIAL SQ SCH ×2 (05:24→18:26)
[2017-04-24 07:37] LABS: BUN/Creatinine Ratio 16 (6-26); Blood Urea Nitrogen 20 mg/dL (8-23); Calcium 7.8 mg/dL (8.6-10.3); Carbon Dioxide 31 mEq/L (23-29); Chloride 102 mEq/L (98-107); Glucose 112 mg/dL (70-105); Magnesium 2.1 mg/dL (1.6-2.6); Osmolality,Calculated 285 (280-300); Phosphorous 2.5 mg/dL (2.7-4.5); Potassium 3.8 mEq/L (3.5-5.1); Sodium 136 mEq/L (136-145); eGFR For African Americans > 60 (> 60); eGFR For Non-African Americans 59 (> 60)
[2017-04-24 07:54] LABS: Basophils % 0.3 %; Eosinophils # 0.1 K/mcL (0.0-0.6); Hematocrit 40.6 % (37.5-50.1); Immature Granulocytes % 0.2 % (0-4); Lymphocytes # 0.7 K/mcL (0.6-4.6); Mean Corpuscular Hemoglobin 31.3 pg (28.0-33.3); Mean Corpuscular Volume 97.6 fL (83.0-100.0); Mean Platelet Volume 10.3 fL (9.4-12.4); Monocytes # 0.5 K/mcL (0.0-1.3); Monocytes % 8.2 %; Neutrophils # 4.8 K/mcL (1.6-8.9); Platelet Count 144 K/mcL (140-400); Red Blood Count 4.16 M/mcL (4.19-5.50); Red Cell Distribution Width 14.8 % (11.5-14.5); Segmented Neutrophils % 78.3 %
[2017-04-24] MEDS: Primidone 50 MG TABLET PO SCH ×2 (09:01→21:44)
[2017-04-24] MEDS: Aspirin 81 MG TAB.CHEW PO SCH (09:01)
[2017-04-24] MEDS: Famotidine 20 MG TABLET PO SCH (09:01)
[2017-04-24] MEDS: predniSONE 10 MG TABLET PO SCH (09:01)
[2017-04-24] MEDS: Vancomycin 1,500 MG in D5% in Water 250 ML IVPB SCH (10:07)
[2017-04-24] MEDS: Tiotropium 18 MCG inhalation IH SCH (10:12)
--- NOTE | 2017-04-24 15:28 | Internal Med Progress Note ---
Date of Encounter: 04/24/17 Time of Encounter: 14:59 - Assessment and plan (1) Cellulitis of leg, left Current Visit: Yes Status: Acute Assessment and plan: continue IV abx (Vanco and Zosyn) blood cultures prelim report NO growth wound cultures prelim no growth pain control daily wound care (2) Acute kidney injury Current Visit: Yes Status: Resolved Assessment and plan: Resolved renal function back to baseline (3) Bilateral lower extremity edema Current Visit: Yes Status: Acute Assessment and plan: likely secondary to low oncotic pressure LE doppler negative for DVT (4) DVT prophylaxis Current Visit: No Status: Acute Assessment and plan: Heparin SQ (5) COPD (chronic obstructive pulmonary disease) Current Visit: No Status: Chronic Assessment and plan: not in acute exacerbation continue home meds Qualifiers: COPD type: unspecified COPD Qualified Code(s): J44.9 - Chronic obstructive pulmonary disease, unspecified (6) Tobacco abuse Current Visit: No Status: Chronic Assessment and plan: smoking cessation counseling provided pt refused nicotine replacement therapy - Subjective Interval history: Patient seen and examined at bedside. Resting in bed and reports of improvement in pain from pervious day. LE edema improved b/l LE venous doppler negative for DVT - Constitutional Vitals: Temp Pulse Resp BP Pulse Ox 98.2 F 80 16 138/85 94 04/24/17 11:28 04/24/17 11:28 04/24/17 11:28 04/24/17 11:28 04/24/17 11:28 General appearance: Present: cooperative, A&O X 3, pleasant, no acute distress, answers questions appropriately - Head Head exam: Present: atraumatic, normocephalic - Eye Eye exam: Present: conjuntiva pink, sclera anicteric - Respiratory Respiratory exam: Absent: CTAB, respiratory distress, wheezes - Cardiovascular Cardiovascular exam: Present: RRR, +S1, +S2. Absent: diastolic murmur, gallop, rubs, systolic murmur - GI/Abdominal GI/Abdominal exam: Present: normal bowel sounds, soft, no peritoneal signs. Absent: distended, tenderness - Extremities Exam Extremities exam: Present: warm, radial pulses palpable and symmetrical. Absent : calf tenderness (trace pedal edema, distal left leg erythema noted on the crawford , dressing intact ) - Neurological Exam Neurological exam: Present: alert, oriented X3 - Psychiatric Psychiatric exam: Present: normal affect, normal mood Internal Medicine: Result - Labs CBC & Chem 7: 04/24/17 06:16 04/24/17 06:16 Labs: Short CBC 04/24/17 Range/Units 06:16 WBC 6.1 (4.3-11.1) K/mcL Hgb 13.0 (12.9-16.9) g/dL Hct 40.6 (37.5-50.1) % Plt Count 144 (140-400) K/mcL Neutrophils # 4.8 (1.6-8.9) K/mcL BMP 04/24/17 06:16 Sodium 136 Potassium 3.8 Chloride 102 Carbon Dioxide 31 H BUN 20 Creatinine 1.22 Glucose 112 H Calcium 7.8 L Consult Discharge Plan - Plan Referrals: Talita Coffey, SURGERY TECHNICIAN [Primary Care Provider] -
[2017-04-24] MEDS ORDERED: Aminoglycoside Consult 1 EACH MC ONE (21:04)
[2017-04-25] MEDS: Ipratropium/Albuterol Neb 3 ML IH SCH ×2 (04:07→11:22)
[2017-04-25] MEDS: *HR* Heparin 5,000 UNIT/ML VIAL SQ SCH ×2 (05:30→17:27)
[2017-04-25 05:54] LABS: Basophils % 0.3 %; Eosinophils # 0.1 K/mcL (0.0-0.6); Eosinophils % 1.7 %; Hematocrit 43.3 % (37.5-50.1); Hemoglobin 13.6 g/dL (12.9-16.9); Immature Granulocytes % 0.3 % (0-4); Lymphocytes # 1.1 K/mcL (0.6-4.6); Lymphocytes % 19.1 %; Mean Corpuscular HGB Conc 31.4 g/dL (31.6-35.5); Mean Corpuscular Hemoglobin 30.8 pg (28.0-33.3); Mean Corpuscular Volume 98.2 fL (83.0-100.0); Mean Platelet Volume 9.9 fL (9.4-12.4); Monocytes # 0.7 K/mcL (0.0-1.3); Monocytes % 12.1 %; Neutrophils # 3.9 K/mcL (1.6-8.9); Platelet Count 158 K/mcL (140-400); Red Blood Count 4.41 M/mcL (4.19-5.50); Red Cell Distribution Width 14.7 % (11.5-14.5); Segmented Neutrophils % 66.5 %
[2017-04-25 06:36] LABS: BUN/Creatinine Ratio 16 (6-26); Blood Urea Nitrogen 19 mg/dL (8-23); Calcium 8.2 mg/dL (8.6-10.3); Carbon Dioxide 28 mEq/L (23-29); Chloride 105 mEq/L (98-107); Glucose 81 mg/dL (70-105); Magnesium 2.2 mg/dL (1.6-2.6); Osmolality,Calculated 287 (280-300); Phosphorous 3.3 mg/dL (2.7-4.5); Potassium 4.2 mEq/L (3.5-5.1); Sodium 138 mEq/L (136-145); eGFR For African Americans > 60 (> 60); eGFR For Non-African Americans > 60 (> 60)
[2017-04-25] MEDS: Aspirin 81 MG TAB.CHEW PO SCH (08:19)
[2017-04-25] MEDS: Primidone 50 MG TABLET PO SCH ×2 (08:19→21:54)
[2017-04-25] MEDS: Famotidine 20 MG TABLET PO SCH (08:20)
[2017-04-25] MEDS: predniSONE 10 MG TABLET PO SCH (08:20)
[2017-04-25] MEDS: Ipratropium/Albuterol Neb 3 ML IH PRN (11:21)
[2017-04-25] MEDS: Tiotropium 18 MCG inhalation IH SCH (11:22)
--- NOTE | 2017-04-25 12:09 | Internal Med Progress Note ---
Date of Encounter: 04/25/17 Time of Encounter: 11:05 - Assessment and plan (1) Cellulitis of leg, left Current Visit: Yes Status: Acute Assessment and plan: continue IV abx(discontinue Vanco, will continue IV Zosyn) blood cultures prelim report NO growth wound cultures prelim no growth pain control daily wound care tentative d/c in am with PO abx if continues to clinically improve (2) Acute kidney injury Current Visit: Yes Status: Resolved Assessment and plan: Resolved renal function back to baseline (3) Bilateral lower extremity edema Current Visit: Yes Status: Acute Assessment and plan: likely secondary to low oncotic pressure LE doppler negative for DVT LE edema improved since admission with leg elevation (4) DVT prophylaxis Current Visit: No Status: Acute Assessment and plan: Heparin SQ (5) COPD (chronic obstructive pulmonary disease) Current Visit: No Status: Chronic Assessment and plan: not in acute exacerbation continue home meds Qualifiers: COPD type: unspecified COPD Qualified Code(s): J44.9 - Chronic obstructive pulmonary disease, unspecified (6) Tobacco abuse Current Visit: No Status: Chronic Assessment and plan: smoking cessation counseling provided pt refused nicotine replacement therapy - Subjective Interval history: Patient seen and examined at bedside. Resting in bed and reports of improvement in pain from pervious day. LE edema improved Pt reports of having mild shortness of breath and states he is supposed to be on continuous 2L NC however he has been using it intermittently. Pt educated about the need to remain compliant with home O2. Continue O2 supplementation - Constitutional Vitals: Temp Pulse Resp BP Pulse Ox 98.2 F 73 14 119/77 95 04/25/17 11:56 04/25/17 11:56 04/25/17 11:56 04/25/17 11:56 04/25/17 11:56 General appearance: Present: cooperative, A&O X 3, pleasant, no acute distress, answers questions appropriately - Head Head exam: Present: atraumatic, normocephalic - Eye Eye exam: Present: conjuntiva pink, sclera anicteric - Respiratory Respiratory exam: Present: CTAB. Absent: respiratory distress, wheezes - Cardiovascular Cardiovascular exam: Present: RRR, +S1, +S2. Absent: diastolic murmur, gallop, rubs, systolic murmur - GI/Abdominal GI/Abdominal exam: Present: normal bowel sounds, soft, no peritoneal signs. Absent: distended, tenderness - Extremities Exam Extremities exam: Present: warm, radial pulses palpable and symmetrical (left distal LE erythema noted, wound clean with steri strips intact-improved from previous day). Absent: calf tenderness Internal Medicine: Result - Labs CBC & Chem 7: 04/25/17 05:09 04/25/17 05:09 Labs: Short CBC 04/25/17 Range/Units 05:09 WBC 5.9 (4.3-11.1) K/mcL Hgb 13.6 (12.9-16.9) g/dL Hct 43.3 (37.5-50.1) % Plt Count 158 (140-400) K/mcL Neutrophils # 3.9 (1.6-8.9) K/mcL BMP 04/25/17 05:09 Sodium 138 Potassium 4.2 Chloride 105 Carbon Dioxide 28 BUN 19 Creatinine 1.17 Glucose 81 Calcium 8.2 L Consult Discharge Plan - Plan Referrals: Talita Coffey, MANUFACTURING MAINTENANCE TECHNICIAN [Primary Care Provider] -
[2017-04-26] MEDS: Ipratropium/Albuterol Neb 3 ML IH PRN ×2 (00:06→08:01)
[2017-04-26] MEDS: Vancomycin 1,500 MG in D5% in Water 250 ML IVPB SCH (02:52)
[2017-04-26] MEDS: *HR* Heparin 5,000 UNIT/ML VIAL SQ SCH (04:55)
[2017-04-26 05:40] LABS: Basophils % 0.2 %; Eosinophils # 0.1 K/mcL (0.0-0.6); Eosinophils % 2.3 %; Hematocrit 42.6 % (37.5-50.1); Hemoglobin 13.7 g/dL (12.9-16.9); Immature Granulocytes % 0.4 % (0-4); Lymphocytes % 18.8 %; Mean Corpuscular HGB Conc 32.2 g/dL (31.6-35.5); Mean Corpuscular Hemoglobin 30.9 pg (28.0-33.3); Mean Corpuscular Volume 96.2 fL (83.0-100.0); Mean Platelet Volume 9.8 fL (9.4-12.4); Monocytes # 0.5 K/mcL (0.0-1.3); Monocytes % 9.2 %; Neutrophils # 3.6 K/mcL (1.6-8.9); Platelet Count 151 K/mcL (140-400); Red Blood Count 4.43 M/mcL (4.19-5.50); Red Cell Distribution Width 14.6 % (11.5-14.5); Segmented Neutrophils % 69.1 %
[2017-04-26 05:56] LABS: BUN/Creatinine Ratio 16 (6-26); Blood Urea Nitrogen 17 mg/dL (8-23); Calcium 8.1 mg/dL (8.6-10.3); Carbon Dioxide 31 mEq/L (23-29); Chloride 104 mEq/L (98-107); Glucose 131 mg/dL (70-105); Osmolality,Calculated 289 (280-300); Phosphorous 3.1 mg/dL (2.7-4.5); Potassium 4.1 mEq/L (3.5-5.1); Sodium 138 mEq/L (136-145); eGFR For African Americans > 60 (> 60); eGFR For Non-African Americans > 60 (> 60)
[2017-04-26] MEDS: Tiotropium 18 MCG inhalation IH SCH (08:01)
[2017-04-26] MEDS ORDERED: Furosemide 40 MG TABLET PO SCH (09:00)
[2017-04-26] MEDS: Famotidine 20 MG TABLET PO SCH (09:16)
[2017-04-26] MEDS: Aspirin 81 MG TAB.CHEW PO SCH (09:16)
[2017-04-26] MEDS: predniSONE 10 MG TABLET PO SCH (09:16)
[2017-04-26] MEDS: Primidone 50 MG TABLET PO SCH (09:17)
[2017-04-26 10:54] VITALS: BP 114/74
--- NOTE | 2017-04-26 14:23 | Discharge Summary ---
Date of Encounter: 04/26/17 Time of Encounter: 14:20 - Discharge Diagnosis (1) Cellulitis of leg, left Priority: Primary Status: Acute (2) Acute kidney injury Priority: Secondary Status: Resolved (3) Bilateral lower extremity edema Priority: Secondary Status: Acute (4) DVT prophylaxis Priority: Secondary Status: Acute (5) COPD (chronic obstructive pulmonary disease) Priority: Secondary Status: Chronic Qualifiers: COPD type: unspecified COPD Qualified Code(s): J44.9 - Chronic obstructive pulmonary disease, unspecified (6) Tobacco abuse Priority: Secondary Status: Chronic - Discharge Medications Prescriptions: Amoxicillin/Clavulanate [Augmentin] 875 mg PO BIDWM #13 tablet Tramadol HCl [Ultram] 50 mg PO Q6H PRN 3 Days #10 tab PRN Reason: moderate to severe pain Home Medications: Mometasone/Formoterol [Dulera 200 Mcg/5 Mcg Inhaler] 2 puff IH BID 01/25/16 [ History] Metoprolol [Lopressor] 25 mg PO BID #60 tablet 04/14/16 [Rx] Aspirin 81 mg PO DAILY #30 tab.chew 05/20/16 [Rx] Acetaminophen [Tylenol] 500 mg PO Q6H PRN 08/26/16 [History] Primidone [Mysoline] 50 mg PO BID 08/26/16 [History] Calcium Carbonate/Vitamin D3 [Calcium 600-Vit D3 400 Tablet] 1 tab PO BID [History] Theophylline Anhydrous [Curt-24] 100 mg PO DAILY 10/04/16 [History] Docusate [Colace] 100 mg PO BID PRN 11/02/16 [History] Roflumilast [Daliresp] 500 mcg PO DAILY 11/02/16 [History] Buspirone HCl [Buspar] 15 mg PO BID 02/28/17 [History] Famotidine [Pepcid] 20 mg PO DAILY 02/28/17 [History] GuaiFENesin ER [Mucinex] 600 mg PO Q12H 02/28/17 [History] Tiotropium [Spiriva] 18 mcg IH 0700 03/23/17 [History] Ipratropium/Albuterol Neb [Duoneb] 3 ml IH [id number] inhsol 03/25/17 [Rx] Lidocaine Patch [Lidoderm 5% patch] 1 each TP DAILY PRN #7 adh..patch 04/01/17 [ Rx] Ergocalciferol (VITAMIN D2) [Vitamin D2] 50,000 unit PO FR 04/22/17 [History] Furosemide [Lasix] 40 mg PO DAILY 04/22/17 [History] predniSONE [PredniSONE] 10 mg PO DAILY 04/22/17 [History] Amoxicillin/Clavulanate [Augmentin] 875 mg PO BIDWM #13 tablet 04/26/17 [Rx] Tramadol HCl [Ultram] 50 mg PO Q6H PRN 3 Days #10 tab 04/26/17 [Rx] Allergies/Adverse Reactions: 3 Allergy/AdvReac Type Severity Reaction Status Date / Time azithromycin [From Zithromax] AdvReac See Verified 03/23/17 07:44 Comments hydrochlorothiazide AdvReac Difficulty Verified 03/23/17 07:44 Breathing ibuprofen [From Motrin] AdvReac Gastrointestinal Verified 03/23/17 07:44 Upset levofloxacin [From Levaquin] AdvReac See Verified 03/23/17 07:44 Comments Date of admission: 04/26/17 10:06 Primary care physician: Talita Coffey CNP Discharging clinician: Nazia Crowe Anticipated date of discharge: 04/26/17 - Patient Status Disposition: Transfer SNF Condition: Good Functional capacity at discharge: independent ambulation Overall status at discharge: patient is back to baseline - Discharge Instructions Instructions: Cellulitis (DC) Follow Up With: Talita Coffey CNP [Primary Care Provider] - 04/29/17 11:00 am (Please follow up as schedule..) Additional Instructions: Please follow up with your primary care physician within five days after your discharge from the hospital. Please continue oral antibiotics as prescribed. Please continue daily wound care Resume all other medications as prescribed by your primary care physician. - Diet and Activity Activity: resume usual activities as tolerated, wear oxygen at all times, wear oxygen at night Diet: low salt diet Hospital course: Mr. Steven is a 66 year old male with PMH Of CoPD on LTOT, HTN, HLD who was admitted for LE edema and cellulitis. He was started on IV abx. He responded well to therapy with improvement in his leg pain and edema. He is from a [place] and is currently stable for discharge back to [facility] with PO abx. Pt demonstrates understanding of his diagnosis and agrees with the discharge care and plan. - Time Spent with Patient Total time spent providing and/or coordinating discharge services: Less than 30 minutes - Constitutional Vitals: Temp Pulse Resp BP Pulse Ox 98.2 F 63 16 114/74 99 04/26/17 10:53 04/26/17 10:53 04/26/17 10:53 04/26/17 10:53 04/26/17 10:53 General appearance: Present: cooperative, A&O X 3, pleasant, no acute distress, answers questions appropriately - Head Head exam: Present: atraumatic, normocephalic - Eye Eye exam: Present: conjuntiva pink, sclera anicteric - Respiratory Respiratory exam: Present: CTAB. Absent: respiratory distress, wheezes - Cardiovascular Cardiovascular exam: Present: RRR, +S1, +S2. Absent: diastolic murmur, gallop, rubs, systolic murmur - GI/Abdominal GI/Abdominal exam: Present: normal bowel sounds, soft, no peritoneal signs. Absent: distended, tenderness - Extremities Exam Extremities exam: Present: warm, radial pulses palpable and symmetrical (distal LLE erythema improved from previous day, dressing intact ). Absent: calf tenderness - Neurological Exam Neurological exam: Present: alert, oriented X3 - Psychiatric Psychiatric exam: Present: normal affect, normal mood
--- NOTE | 2017-04-26 14:26 | Physician Discharge Referral ---
ExtendedCare Referral Info Transfer To: [facility] - Diagnosis (1) Cellulitis of leg, left Priority: Primary Status: Acute (2) Acute kidney injury Priority: Secondary Status: Resolved (3) Bilateral lower extremity edema Priority: Secondary Status: Acute (4) DVT prophylaxis Priority: Secondary Status: Acute (5) COPD (chronic obstructive pulmonary disease) Priority: Secondary Status: Chronic (6) Tobacco abuse Priority: Secondary Status: Chronic - Transfer Medications Prescriptions: Amoxicillin/Clavulanate [Augmentin] 875 mg PO BIDWM #13 tablet Tramadol HCl [Ultram] 50 mg PO Q6H PRN 3 Days #10 tab PRN Reason: moderate to severe pain Home Medications: Mometasone/Formoterol [Dulera 200 Mcg/5 Mcg Inhaler] 2 puff IH BID 01/25/16 [ History] Metoprolol [Lopressor] 25 mg PO BID #60 tablet 04/14/16 [Rx] Aspirin 81 mg PO DAILY #30 tab.chew 05/20/16 [Rx] Acetaminophen [Tylenol] 500 mg PO Q6H PRN 08/26/16 [History] Primidone [Mysoline] 50 mg PO BID 08/26/16 [History] Calcium Carbonate/Vitamin D3 [Calcium 600-Vit D3 400 Tablet] 1 tab PO BID [History] Theophylline Anhydrous [Curt-24] 100 mg PO DAILY 10/04/16 [History] Docusate [Colace] 100 mg PO BID PRN 11/02/16 [History] Roflumilast [Daliresp] 500 mcg PO DAILY 11/02/16 [History] Buspirone HCl [Buspar] 15 mg PO BID 02/28/17 [History] Famotidine [Pepcid] 20 mg PO DAILY 02/28/17 [History] GuaiFENesin ER [Mucinex] 600 mg PO Q12H 02/28/17 [History] Tiotropium [Spiriva] 18 mcg IH 0700 03/23/17 [History] Ipratropium/Albuterol Neb [Duoneb] 3 ml IH [id number] inhsol 03/25/17 [Rx] Lidocaine Patch [Lidoderm 5% patch] 1 each TP DAILY PRN #7 adh..patch 04/01/17 [ Rx] Ergocalciferol (VITAMIN D2) [Vitamin D2] 50,000 unit PO FR 04/22/17 [History] Furosemide [Lasix] 40 mg PO DAILY 04/22/17 [History] predniSONE [PredniSONE] 10 mg PO DAILY 04/22/17 [History] Amoxicillin/Clavulanate [Augmentin] 875 mg PO BIDWM #13 tablet 04/26/17 [Rx] Tramadol HCl [Ultram] 50 mg PO Q6H PRN 3 Days #10 tab 04/26/17 [Rx] Allergies/Adverse Reactions: 3 Allergy/AdvReac Type Severity Reaction Status Date / Time azithromycin [From Zithromax] AdvReac See Verified 03/23/17 07:44 Comments hydrochlorothiazide AdvReac Difficulty Verified 03/23/17 07:44 Breathing ibuprofen [From Motrin] AdvReac Gastrointestinal Verified 03/23/17 07:44 Upset levofloxacin [From Levaquin] AdvReac See Verified 03/23/17 07:44 Comments - Respiratory Orders Smoking Cessation: Smoking cessation has been advised. For more information, call the [place] Tobacco Quit Line at 7-427-QWYENOW. - Rehabiliation Orders Other: Please follow up with your primary care physician within five days after your discharge from the hospital. Please continue oral antibiotics as prescribed. Please continue daily wound care Resume all other medications as prescribed by your primary care physician. CERTIFICATION: I certify that the transfer of the above named patient to an Extended Care Facility is necessary for the continuing treatment of the diagnosis listed. The above information is true and accurate reflection of patient's current condition. Confidential - Redisclosure prohibited without a patient's written consent.
--- NOTE | 2017-04-26 18:33 | Electrocardiograph Report ---
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
== END 2017-04-26 16:15 | DRG 603 ==
LOC: EMEROO 18:09 → 2ANU 18:09
PROVIDERS: ADMIT Internal Medicine; ATTEND Internal Medicine

== ENCOUNTER 2017-05-27 18:06 | Inpatient (IN) ==
--- NOTE | 2017-05-27 19:31 | Emergency Department Note ---
Disposition Clinical Impression: Lower extremity weakness Disposition: Admitted As Inpatient Condition: Fair General Adult HPI - General Chief complaint: ED Extremity Injury, Lower Stated complaint: Left leg weak/shakes in legs Time Seen by Provider: 05/27/17 19:01 Source: patient Limitations: no limitations Nursing Notes Reviewed: Yes Vital Signs Reviewed: Yes - History of Present Illness Pain Scale: 0 - Related Data Home Medications Medication Instructions Recorded Confirmed Mometasone/Formoterol [Dulera 200 2 puff IH BID 01/25/16 04/22/17 Mcg/5 Mcg Inhaler] Acetaminophen [Tylenol] 500 mg PO Q6H PRN 08/26/16 04/22/17 Primidone [Mysoline] 50 mg PO BID 08/26/16 04/22/17 Calcium Carbonate/Vitamin D3 1 tab PO BID 10/04/16 04/22/17 [Calcium 600-Vit D3 400 Tablet] Theophylline Anhydrous [Curt-24] 100 mg PO DAILY 10/04/16 04/22/17 Docusate [Colace] 100 mg PO BID PRN 11/02/16 04/22/17 Roflumilast [Daliresp] 500 mcg PO DAILY 11/02/16 04/22/17 Buspirone HCl [Buspar] 15 mg PO BID 02/28/17 04/22/17 Famotidine [Pepcid] 20 mg PO DAILY 02/28/17 04/22/17 GuaiFENesin ER [Mucinex] 600 mg PO Q12H 02/28/17 04/22/17 Tiotropium [Spiriva] 18 mcg IH 0700 03/23/17 04/22/17 Ergocalciferol (VITAMIN D2) 50,000 unit PO FR 04/22/17 04/22/17 [Vitamin D2] Furosemide [Lasix] 40 mg PO DAILY 04/22/17 04/22/17 predniSONE [PredniSONE] 10 mg PO DAILY 04/22/17 04/22/17 Previous Rx's Medication Instructions Recorded Metoprolol [Lopressor] 25 mg PO BID #60 tablet 04/14/16 Aspirin 81 mg PO DAILY #30 tab.chew 05/20/16 Ipratropium/Albuterol Neb [Duoneb] 3 ml IH [id number] inhsol 03/25/17 Lidocaine Patch [Lidoderm 5% patch] 1 each TP DAILY PRN #7 adh..patch 04/01/17 Amoxicillin/Clavulanate [Augmentin] 875 mg PO BIDWM #13 tablet 04/26/17 Tramadol HCl [Ultram] 50 mg PO Q6H PRN 3 Days #10 tab 04/26/17 Sulfamethoxazole/Trimeth DS 1 each PO BID #14 tablet 05/05/17 [Bactrim DS] predniSONE [Prednisone] 50 mg PO DAILY #5 tablet 05/05/17 Amoxicillin/Clavulanate [Augmentin] 875 mg PO BIDWM #20 tablet 05/09/17 Amoxicillin/Clavulanate [Augmentin] 875 mg PO BIDWM #20 tablet 05/09/17 Allergies Allergy/AdvReac Type Severity Reaction Status Date / Time azithromycin [From Zithromax] AdvReac See Verified 05/27/17 18:37 Comments hydrochlorothiazide AdvReac Difficulty Verified 05/27/17 18:37 Breathing ibuprofen [From Motrin] AdvReac Gastrointestinal Verified 05/27/17 18:37 Upset levofloxacin [From Levaquin] AdvReac See Verified 05/27/17 18:37 Comments Past Medical History - Past Medical History Medical history: Reports: COPD, CVA, hyperlipidemia, hypertension Surgical history: Reports: other Psychiatric history: Reports: anxiety, depression - Social History Smoking Status: Current some day smoker Smokeless Tobacco Status: No Alcohol use: Reports: none Drug use: Reports: none Physical Exam - General Limitations: no limitations General appearance: alert Course Vital Signs Temperature 98 F 05/27/17 18:38 Pulse Rate 64 05/27/17 18:38 Respiratory Rate 20 05/27/17 18:38 Blood Pressure 118/78 05/27/17 18:38 O2 Sat by Pulse Oximetry 95 05/27/17 18:38 Temperature 98 F 05/27/17 18:38 Pulse Rate 52 05/27/17 20:26 Respiratory Rate 18 05/27/17 20:26 Blood Pressure 152/99 05/27/17 20:26 O2 Sat by Pulse Oximetry 98 05/27/17 20:26 Oxygen Delivery Oxygen Delivery Room Air Medical Decision Making - MDM Narrative Medical decision making narrative: This documentation is done with the assistance of Dragon dictation. Despite efforts made to ensure accuracy, there may be inaccuracies in room service runner or spelling and typographical errors. I examined this patient and my medical decision-making was reviewed with the Resident Physician. I agree with the documented findings, disposition and treatment plan as described except to the extent set forth below. Patient seen and evaluated on arrival with Dr. Arvizu and myself, I agree with her evaluation and management plan, I supervised the care the patient's stay. Patient comes in today stays been having some weakness is been on for more than a couple days. He says maybe up to a week. He says seems affect is of slightly more on exam is using more right side he has difficulty keeping his right leg elevated his right hand he has tremors in both arms which she states had in the past 2 previous strokes before 2012 2015. Nothing new. He said he could have had a stroke recently does not any speech problems notices acute. He does walk with a cane same visits upstairs well but he just feels like his weakness makes him in stable and today did have a fall he denies any injuries. Return to CT his head check some basic labs and reassess. He does see a primary care physician but does not see neurology. 194 hrs.: Patient had an EKG performed which shows a sinus bradycardia with a rate of 50, QRS is 78, QTC of 400 he has no signs of acute ischemia compared this EKG with one he had done in April of this year and shows no changes except for rate. Head CT 05/27/17 19:26 IMPRESSION: Stable CT brain with no acute intracranial abnormality. D/ / Luis E Palmer MD / Luis E Palmer MD Interpreting Provider: Luis E Palmer MD 2020 hrs.: Patient's CT shows no signs of stroke or bleed. Were waiting on his labs to come back. And then will determine best disposition for him. It sounds like he like to go home if his lab work looks okay. Vytorin we discuss everything once his lab results come back and he is in agreement with this plan. - Lab Data Result diagrams: 05/27/17 20:02 05/27/17 20:02 Lab Results 05/27/17 05/27/17 Range/Units 20:02 20:02 WBC 7.4 (4.3-11.1) K/mcL RBC 4.51 (4.19-5.50) M/mcL Hgb 14.0 (12.9-16.9) g/dL Hct 43.5 (37.5-50.1) % MCV 96.5 (83.0-100.0) fL MCH 31.0 (28.0-33.3) pg MCHC 32.2 (31.6-35.5) g/dL RDW 13.2 (11.5-14.5) % Plt Count 190 (140-400) K/mcL MPV 10.1 (9.4-12.4) fL Immature Gran % 0.5 (0-4) % Seg Neutrophils % 80.6 % Lymphocytes % 9.7 % Monocytes % 8.6 % Eosinophils % 0.1 % Basophils % 0.5 % Neutrophils # 6.0 (1.6-8.9) K/mcL Lymphocytes # 0.7 (0.6-4.6) K/mcL Monocytes # 0.6 (0.0-1.3) K/mcL Eosinophils # 0.0 (0.0-0.6) K/mcL Basophils # 0.0 (0.0-0.2) K/mcL Sodium 140 (136-145) mEq/L Potassium 4.1 (3.5-5.1) mEq/L Chloride 107 (98-107) mEq/L Carbon Dioxide 31 H (23-29) mEq/L BUN 17 (8-23) mg/dL Creatinine 0.96 (0.70-1.30) mg/dL Est GFR ( Amer) > 60 (> 60) Est GFR (Non-Af Amer) > 60 (> 60) BUN/Creatinine Ratio 18 (6-26) Glucose 87 (70-105) mg/dL Calculated Osmolality 291 (280-300) Calcium 8.6 (8.6-10.3) mg/dL
[2017-05-27 20:23] LABS: Basophils % 0.5 %; Eosinophils % 0.1 %; Hematocrit 43.5 % (37.5-50.1); Immature Granulocytes % 0.5 % (0-4); Lymphocytes # 0.7 K/mcL (0.6-4.6); Lymphocytes % 9.7 %; Mean Corpuscular HGB Conc 32.2 g/dL (31.6-35.5); Mean Corpuscular Volume 96.5 fL (83.0-100.0); Mean Platelet Volume 10.1 fL (9.4-12.4); Monocytes # 0.6 K/mcL (0.0-1.3); Monocytes % 8.6 %; Platelet Count 190 K/mcL (140-400); Red Blood Count 4.51 M/mcL (4.19-5.50); Red Cell Distribution Width 13.2 % (11.5-14.5); Segmented Neutrophils % 80.6 %
[2017-05-27 20:38] LABS: BUN/Creatinine Ratio 18 (6-26); Blood Urea Nitrogen 17 mg/dL (8-23); Calcium 8.6 mg/dL (8.6-10.3); Carbon Dioxide 31 mEq/L (23-29); Chloride 107 mEq/L (98-107); Glucose 87 mg/dL (70-105); Osmolality,Calculated 291 (280-300); Potassium 4.1 mEq/L (3.5-5.1); Sodium 140 mEq/L (136-145); eGFR For African Americans > 60 (> 60); eGFR For Non-African Americans > 60 (> 60)
--- NOTE | 2017-05-27 20:50 | Emergency Department Note ---
Disposition Clinical Impression: Lower extremity weakness Qualifiers: Laterality: bilateral Qualified Code(s): R29.898 - Other symptoms and signs involving the musculoskeletal system Disposition: Admitted As Inpatient Condition: Fair Referrals: Talita Coffey CNP [Primary Care Provider] - Forms: ED Satisfaction Letter Time of Disposition: 20:58 General Adult HPI - General Chief complaint: ED Extremity Injury, Lower Stated complaint: Left leg weak/shakes in legs Time Seen by Provider: 05/27/17 19:01 Source: patient Limitations: no limitations Nursing Notes Reviewed: Yes Vital Signs Reviewed: Yes - History of Present Illness HPI Narrative: Patient is a 66-year-old male who presents to [facility] ED with a chief complaint of left lower extremity weakness as well as shaking in the legs. States he had a fall earlier today. Denies any head injury or loss of consciousness. States he was seen by his primary care doctor who recommended he come to the emergency department to get checked out for possible stroke. States he feels like he is not talking right either. Denies any nausea , vomiting, fever or chills. No chest pain, difficulty breathing, abdominal pain, problems with urination or bowel movements. States he has had had 2 prior strokes most recent of which was last April. States his arms have been shaky ever since then. Onset (ago): unknown Pain Scale: 0 Improves with: nothing Worsens with: nothing Associated symptoms: Reports: denies other symptoms, weakness. Denies: chest pain, fever/chills, loss of appetite, nausea/vomiting Treatments Prior to Arrival: none - Related Data Home Medications Medication Instructions Recorded Confirmed Mometasone/Formoterol [Dulera 200 2 puff IH BID 01/25/16 04/22/17 Mcg/5 Mcg Inhaler] Acetaminophen [Tylenol] 500 mg PO Q6H PRN 08/26/16 04/22/17 Primidone [Mysoline] 50 mg PO BID 08/26/16 04/22/17 Calcium Carbonate/Vitamin D3 1 tab PO BID 10/04/16 04/22/17 [Calcium 600-Vit D3 400 Tablet] Theophylline Anhydrous [Curt-24] 100 mg PO DAILY 10/04/16 04/22/17 Docusate [Colace] 100 mg PO BID PRN 11/02/16 04/22/17 Roflumilast [Daliresp] 500 mcg PO DAILY 11/02/16 04/22/17 Buspirone HCl [Buspar] 15 mg PO BID 02/28/17 04/22/17 Famotidine [Pepcid] 20 mg PO DAILY 02/28/17 04/22/17 GuaiFENesin ER [Mucinex] 600 mg PO Q12H 02/28/17 04/22/17 Tiotropium [Spiriva] 18 mcg IH 0700 03/23/17 04/22/17 Ergocalciferol (VITAMIN D2) 50,000 unit PO FR 04/22/17 04/22/17 [Vitamin D2] Furosemide [Lasix] 40 mg PO DAILY 04/22/17 04/22/17 predniSONE [PredniSONE] 10 mg PO DAILY 04/22/17 04/22/17 Previous Rx's Medication Instructions Recorded Metoprolol [Lopressor] 25 mg PO BID #60 tablet 04/14/16 Aspirin 81 mg PO DAILY #30 tab.chew 05/20/16 Ipratropium/Albuterol Neb [Duoneb] 3 ml IH [id number] inhsol 03/25/17 Lidocaine Patch [Lidoderm 5% patch] 1 each TP DAILY PRN #7 adh..patch 04/01/17 Amoxicillin/Clavulanate [Augmentin] 875 mg PO BIDWM #13 tablet 04/26/17 Tramadol HCl [Ultram] 50 mg PO Q6H PRN 3 Days #10 tab 04/26/17 Sulfamethoxazole/Trimeth DS 1 each PO BID #14 tablet 05/05/17 [Bactrim DS] predniSONE [Prednisone] 50 mg PO DAILY #5 tablet 05/05/17 Amoxicillin/Clavulanate [Augmentin] 875 mg PO BIDWM #20 tablet 05/09/17 Amoxicillin/Clavulanate [Augmentin] 875 mg PO BIDWM #20 tablet 05/09/17 Allergies Allergy/AdvReac Type Severity Reaction Status Date / Time azithromycin [From Zithromax] AdvReac See Verified 05/27/17 18:37 Comments hydrochlorothiazide AdvReac Difficulty Verified 05/27/17 18:37 Breathing ibuprofen [From Motrin] AdvReac Gastrointestinal Verified 05/27/17 18:37 Upset levofloxacin [From Levaquin] AdvReac See Verified 05/27/17 18:37 Comments All systems ED: reviewed and negative except as stated. Past Medical History - Past Medical History Attestation: Yes The following information was validated with the patient. Source: patient Medical history: Reports: COPD, CVA, hyperlipidemia, hypertension Surgical history: Reports: other Psychiatric history: Reports: anxiety, depression - Social History Smoking Status: Current some day smoker Smokeless Tobacco Status: No Alcohol use: Reports: none Drug use: Reports: none Physical Exam - General Limitations: no limitations General appearance: alert - Head Head exam: atraumatic, normocephalic, normal inspection - Eye Eye exam: Present: normal appearance, PERRL, EOMI - ENT ENT exam: normal exam, normal oropharynx, mucous membranes moist - Neck Neck exam: Present: normal inspection, full ROM, trachea midline - Chest Chest inspection: Present: normal inspection, symmetric chest wall rise - Respiratory Respiratory exam: Present: normal lung sounds bilaterally - Cardiovascular Cardiovascular exam: Present: regular rate, normal rhythm, normal heart sounds - Abdominal Exam Abdominal exam: Present: soft, Non-Tender. Absent: tenderness, distention, guarding, rebound, rigidity - Extremities Exam Extremities exam: Present: normal inspection, full ROM. Absent: tenderness, pedal edema - Back Exam Back exam: Present: normal inspection, full ROM. Absent: tenderness - Neurological Exam Neurological exam: Present: alert, oriented X3 - Expanded Neurological Exam Patient oriented to: Present: person, place, time Speech: Present: fluid speech Motor strength - LUE: 4/5 Motor strength - RUE: 4/5 Motor strength - LLE: 3/5 Motor strength - RLE: 3/5 Coma Scale Eye Opening: Spontaneous Coma Scale Motor Response: Obeys Commands Coma Scale Verbal Response: Oriented Coma Scale Total: 15 - Psychiatric Psychiatric exam: Present: normal affect, normal mood - Skin Skin exam: Present: warm, dry, intact, normal color Course Course Narrative: Patient seen and examined. Left lower extremity weakness worse today. States he fell. Unknown last known well. There was some concern for CVA. Last known well is unknown, stroke alert was not called. However CVA workup will be done in the emergency department. NIH 3- slurred speech (per pt), LLE and RLE weakness. - Reevaluation(s) Reevaluation #1: Labwork unremarkable. Patient's is a fall risk due to him being unsteady on his feet. We will need a PT evaluation. CT scan unremarkable. I discussed these findings with the patient. We will admit for weakness, CVA workup. Time: 20:56 Vital Signs Temperature 98 F 05/27/17 18:38 Pulse Rate 64 05/27/17 18:38 Respiratory Rate 20 05/27/17 18:38 Blood Pressure 118/78 05/27/17 18:38 O2 Sat by Pulse Oximetry 95 05/27/17 18:38 Temperature 98 F 05/27/17 18:38 Pulse Rate 52 05/27/17 20:26 Respiratory Rate 18 05/27/17 20:26 Blood Pressure 152/99 05/27/17 20:26 O2 Sat by Pulse Oximetry 98 05/27/17 20:26 Oxygen Delivery Oxygen Delivery Room Air Medical Decision Making - Medical Records Medical records reviewed: Yes I reviewed the patient's medical records. - Lab Data Lab results reviewed: Yes I reviewed the patient's lab results. Result diagrams: 05/27/17 20:02 05/27/17 20:02 Lab Results 05/27/17 05/27/17 Range/Units 20:02 20:02 WBC 7.4 (4.3-11.1) K/mcL RBC 4.51 (4.19-5.50) M/mcL Hgb 14.0 (12.9-16.9) g/dL Hct 43.5 (37.5-50.1) % MCV 96.5 (83.0-100.0) fL MCH 31.0 (28.0-33.3) pg MCHC 32.2 (31.6-35.5) g/dL RDW 13.2 (11.5-14.5) % Plt Count 190 (140-400) K/mcL MPV 10.1 (9.4-12.4) fL Immature Gran % 0.5 (0-4) % Seg Neutrophils % 80.6 % Lymphocytes % 9.7 % Monocytes % 8.6 % Eosinophils % 0.1 % Basophils % 0.5 % Neutrophils # 6.0 (1.6-8.9) K/mcL Lymphocytes # 0.7 (0.6-4.6) K/mcL Monocytes # 0.6 (0.0-1.3) K/mcL Eosinophils # 0.0 (0.0-0.6) K/mcL Basophils # 0.0 (0.0-0.2) K/mcL Sodium 140 (136-145) mEq/L Potassium 4.1 (3.5-5.1) mEq/L Chloride 107 (98-107) mEq/L Carbon Dioxide 31 H (23-29) mEq/L BUN 17 (8-23) mg/dL Creatinine 0.96 (0.70-1.30) mg/dL Est GFR ( Amer) > 60 (> 60) Est GFR (Non-Af Amer) > 60 (> 60) BUN/Creatinine Ratio 18 (6-26) Glucose 87 (70-105) mg/dL Calculated Osmolality 291 (280-300) Calcium 8.6 (8.6-10.3) mg/dL - Radiology Data Radiology results reviewed: Yes I reviewed the patient's radiology results. Head CT 05/27/17 19:26 IMPRESSION: Stable CT brain with no acute intracranial abnormality. D/ / Luis E Palmer MD / Luis E Palmer MD Interpreting Provider: Luis E Palmer MD
[2017-05-27] MEDS ORDERED: Acetaminophen 325 MG TABLET PO PRN (21:47)
[2017-05-27] MEDS ORDERED: traMADol 50 MG TABLET PO PRN (21:47)
[2017-05-27] MEDS ORDERED: Naloxone 0.4 MG/ML INJ IVP PRN (21:47)
--- NOTE | 2017-05-27 22:07 | Internal Med History&Physical ---
Date of Encounter: 05/27/17 Time of Encounter: 21:10 Assessment and Plan (1) Weakness of right lower extremity Current visit: Yes Status: Acute 1. Will proceed with stroke work-up given current presentation and history of stroke. 2. Will order MRI head, ECHO, Carotid Dopplers, PT/OT/ST consults. 3. Will place on ASA and STATIN. (2) COPD (chronic obstructive pulmonary disease) Current visit: Yes Status: Chronic 1. Continue home meds as appropriate. 2. Will order CXR. 3. Follow clinically and adjust meds as needed. 4. Continue home meds. Qualifiers: COPD type: emphysema Emphysema type: panlobular Qualified Code(s): J43.1 - Panlobular emphysema (3) Hypertension Current visit: No Status: Chronic 1. Continue home meds and monitor. 2. Adjust meds as necessary for BP control. Qualifiers: Hypertension type: essential hypertension Qualified Code(s): I10 - Essential (primary) hypertension (4) Bradycardia Current visit: Yes Status: Acute 1. Hold Lopressor and monitor closely. (5) DVT prophylaxis Current visit: Yes Status: Acute 1. Heparin SQ. Internal Medicine - H&P: HPI Chief complaint: RLE weakness Admitted From: Emergency Dept Plans for Post Hospital Care: Home History of present illness: Mr. Amor is a 66 year old male who presents with with a roughly 24 hour history of weakness, stumbling, and falling. He states the weakness is in his right leg. He called his PCP this afternoon who advised him to come to the ER. Workup in the ER was negative. However, given his history of 2 prior strokes and his risk of falling, he was admitted to hospitalist service for further workup and care. I saw patient in the ER and evaluated him. He complains of weakness in his right leg, which is chronic. However, the weakness is more pronounced now. He uses a cane to ambulate since his initial stroke in 2014. He ambulates fairly well with a cane, but he has been falling and stumbling more so the last 24-48 hours. He recently was just discharged from a rehabilitation/[facility] facility in last couple weeks. He lives alone at home and cares for himself. He denies any dysarthria, dysphagia, focal paralysis or numbness. 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 Despite his severe lung disease, he continues to smoke. Past Med Surg Social Fam HX - Past Medical History Attestation: Yes The following information was validated with the patient. Source: patient, old records reviewed, other (discussion with ER staff) Medical history: COPD, CVA, hyperlipidemia, hypertension Psychiatric history: anxiety, depression - Past Surgical History Surgical History: other - Social History Smoking Status: Current some day smoker Smokeless Tobacco Status: No Alcohol use: none Drug use: none Current living situation: Home - Independent Activity Level: Uses cane/walker Recent Out of Country Travel Within the Last 8 Weeks: No - Family History Brother Family Member Ethnicity: Non- Living Status: Mother Adopted: No Family Member Ethnicity: Non- Living Status: Hx Family Cardiac Disorders: No Hx Family Respiratory Disorders: No Hx Family Cancer: Yes (lung) Hx Family GI Disorders: No Hx Family Endocrine Disorder: No Hx Family Neuromuscular Disorders: No Hx Family Neurologic Disorders: No Hx Family HEENT Disorders: No Hx Family Autoimmune Disorders: No Father Adopted: No Family Member Ethnicity: Non- Living Status: Hx Family Cardiac Disorders: No Hx Family Respiratory Disorders: Yes (emphysemza) Hx Family Cancer: No Hx Family GI Disorders: No Hx Family Endocrine Disorder: No Hx Family Neuromuscular Disorders: No Hx Family Neurologic Disorders: No Hx Family HEENT Disorders: No Hx Family Autoimmune Disorders: No Internal Medicine - H&P: Meds Mometasone/Formoterol [Dulera 200 Mcg/5 Mcg Inhaler] 2 puff IH BID 01/25/16 [ History] Metoprolol [Lopressor] 25 mg PO BID #60 tablet 04/14/16 [Rx] Aspirin 81 mg PO DAILY #30 tab.chew 05/20/16 [Rx] Acetaminophen [Tylenol] 500 mg PO Q6H PRN 08/26/16 [History] Primidone [Mysoline] 50 mg PO BID 08/26/16 [History] Theophylline Anhydrous [Curt-24] 100 mg PO DAILY 10/04/16 [History] Docusate [Colace] 100 mg PO BID PRN 11/02/16 [History] Roflumilast [Daliresp] 500 mcg PO DAILY 11/02/16 [History] Buspirone HCl [Buspar] 15 mg PO BID 02/28/17 [History] Famotidine [Pepcid] 20 mg PO DAILY 02/28/17 [History] GuaiFENesin ER [Mucinex] 600 mg PO Q12H PRN 02/28/17 [History] Ipratropium/Albuterol Neb [Duoneb] 3 ml IH [id number] inhsol 03/25/17 [Rx] Ergocalciferol (VITAMIN D2) [Vitamin D2] 50,000 unit PO FR 04/22/17 [History] predniSONE [PredniSONE] 10 mg PO DAILY 04/22/17 [History] Calcium Carbonate [Calcium] 600 mg PO BIDWM 05/27/17 [History] Furosemide [Lasix] 20 mg PO DAILY PRN 05/27/17 [History] Lovastatin 40 mg PO HS 05/27/17 [History] Sertraline [Zoloft] 50 mg PO DAILY 05/27/17 [History] Tiotropium [place] [Spiriva Respimat] 2 puff IH DAILY 05/27/17 [History] 3 Allergy/AdvReac Type Severity Reaction Status Date / Time azithromycin [From Zithromax] AdvReac See Verified 05/27/17 18:37 Comments hydrochlorothiazide AdvReac Difficulty Verified 05/27/17 18:37 Breathing ibuprofen [From Motrin] AdvReac Gastrointestinal Verified 05/27/17 18:37 Upset levofloxacin [From Levaquin] AdvReac See Verified 05/27/17 18:37 Comments - Constitutional Constitutional: no chills, no fever(s), no night sweats - EENT Eyes: no blurry vision, no change in vision Ears: no ear pain, no tinnitus Nose, mouth and throat: no nasal congestion, no sinus pressure, no sore throat - Cardiovascular Cardiovascular ROS IM: no chest pain, no dyspnea, no palpitations, no syncope - Respiratory Respiratory: cough, wheezing, no hemoptysis, no chest congestion, no excessive phlegm production, no change in phlegm color - Gastrointestinal Gastrointestinal: no abdominal pain, no diarrhea, no hematemesis, no hematochezia, no melena, no vomiting - Genitourinary Genitourinary ROS male: difficulty urinating, dysuria, flank pain, no hematuria - Musculoskeletal Musculoskeletal ROS IM: no arthralgias, no back pain - Integumentary Integumentary IM: no rash, no jaundice - Neurological Neurological ROS: focal weakness (RLE weakness), frequent falls, no dizziness, no headache(s), no numbness, no paresthesias - Psychiatric Psychiatric: no anxiety, no depression - Endocrine Endocrine IM: no polydipsia, no polyuria - Hematologic/Lymphatic Hematologic/Lymphatic: no easy bruising, no lymphadenopathy - Allergic/Immunologic Allergic/Immunologic: wheezing, no GI upset with certain foods - Constitutional Vitals: Temp Pulse Resp BP Pulse Ox 97.9 F 63 18 157/80 95 05/27/17 21:14 05/27/17 21:15 05/27/17 21:15 05/27/17 22:01 05/27/17 21:14 General appearance: Present: cooperative, A&O X 3, pleasant, no acute distress, answers questions appropriately - Head Head exam: Present: atraumatic, normal inspection - Eye Eye exam: Present: EOMI, PERRL. Absent: scleral icterus Pupils: Present: normal accommodation - ENT ENT exam: Present: mucous membranes dry, normal exam, normal oropharynx - Neck Neck exam general surgery: Present: full ROM, supple. Absent: lymphadenopathy, tenderness, nuchal rigidity - Respiratory Respiratory exam: Present: decreased breath sounds, prolonged expiratory phase, rhonchi. Absent: accessory muscle use, chest wall tenderness, rales, respiratory distress, wheezes, tachypnea - Cardiovascular Cardiovascular exam: Present: distant heart sounds, RRR, +S1, +S2. Absent: diastolic murmur, JVD, systolic murmur - GI/Abdominal GI/Abdominal exam: Present: normal bowel sounds, soft. Absent: guarding, hepatomegaly, mass, rebound, splenomegaly, tenderness - Extremities Exam Extremities exam: Present: full ROM, normal capillary refill, warm, radial pulses palpable and symmetrical. Absent: calf tenderness, joint swelling, pedal edema, tenderness - Back Exam Back exam: Absent: CVA tenderness (L), CVA tenderness (R) - Neurological Exam Neurological exam: Present: alert, CN II-XII intact, oriented X3, reflexes normal. Absent: no focal deficits (subtle RLE wekaness; no loss of sensation), facial droop, speech deficit - Psychiatric Psychiatric exam: Present: normal affect, normal mood - Skin Skin exam: Present: dry, warm. Absent: rash Internal Med - H&P Results - Labs CBC & Chem 7: 05/27/17 20:02 05/27/17 20:02 - EKG Data -: EKG Interpreted by Myself EKG shows normal: sinus rhythm Rate: bradycardia - EKG Data Prior EKG available for review: yes When compared to previous EKG: there is no significant change EKG comments: 05/27/17 22:31 Sinus bradycardia - Diagnostic Studies CT scan - head Status: image reviewed by me (negative)
[2017-05-27] MEDS: Ipratropium/Albuterol Neb 3 ML IH SCH (22:19)
[2017-05-27] MEDS: Aspirin 81 MG TAB.CHEW PO SCH (22:38)
[2017-05-28 00:37] LABS: Bilirubin,Urine Negative (Negative); Blood,Urine Negative (Negative); Clarity,Urine Clear (Clear); Color,Urine Yellow (Yellow); Glucose,Urine (UA) Normal (Normal); Ketones,Urine Trace mg/dL (Negative); Leukocyte Esterase,Urine Negative (Negative); Nitrite,Urine Negative (Negative); PH,Urine 5.5 pH Units (5.0-8.0); Protein,Urine Negative (Neg-Trace); Specific Gravity,Urine > 1.030 (1.010-1.025); Urobilinogen,Urine Normal (Normal)
[2017-05-28] MEDS: Ipratropium/Albuterol Neb 3 ML IH SCH ×4 (03:59→21:36)
[2017-05-28 04:38] LABS: Basophils % 0.6 %; Eosinophils # 0.1 K/mcL (0.0-0.6); Eosinophils % 1.1 %; Hematocrit 37.6 % (37.5-50.1); Immature Granulocytes % 0.4 % (0-4); Lymphocytes # 1.1 K/mcL (0.6-4.6); Lymphocytes % 20.2 %; Mean Corpuscular HGB Conc 32.4 g/dL (31.6-35.5); Mean Corpuscular Hemoglobin 30.9 pg (28.0-33.3); Mean Corpuscular Volume 95.2 fL (83.0-100.0); Mean Platelet Volume 10.5 fL (9.4-12.4); Monocytes # 0.5 K/mcL (0.0-1.3); Neutrophils # 3.7 K/mcL (1.6-8.9); Platelet Count 165 K/mcL (140-400); Red Blood Count 3.95 M/mcL (4.19-5.50); Red Cell Distribution Width 13.2 % (11.5-14.5); Segmented Neutrophils % 67.7 %
[2017-05-28 04:45] LABS: Hemoglobin 12.2 g/dL (12.9-16.9)
[2017-05-28 04:51] LABS: INR 1.2; Prothrombin Time 12.6 Seconds (9.4-12.1)
[2017-05-28 04:53] LABS: Activated Partial Thrombo Time 27.1 Seconds (26.0-36.0)
[2017-05-28 04:59] LABS: Alanine Aminotransferase 20 Units/L (7-52); Albumin 2.8 g/dL (3.5-5.7); Albumin/Globulin Ratio 1.6 (1.1-2.2); Alkaline Phosphatase 61 Units/L (34-104); Aspartate Amino Transferase 18 Units/L (13-39); BUN/Creatinine Ratio 17 (6-26); Bilirubin,Total 0.3 mg/dL (0.3-1.0); Blood Urea Nitrogen 15 mg/dL (8-23); Carbon Dioxide 28 mEq/L (23-29); Chloride 108 mEq/L (98-107); Chol/HDL Ratio 3.2 (0-4.9); Cholesterol 160 mg/dL (< 200); Globulin 1.8 g/dL (2.4-3.5); Glucose 90 mg/dL (70-105); HDL Cholesterol 50 mg/dL (40-59); LDL Cholesterol,Calculated 98 mg/dL (0-99); Magnesium 1.9 mg/dL (1.6-2.6); Osmolality,Calculated 292 (280-300); Potassium 3.5 mEq/L (3.5-5.1); Sodium 141 mEq/L (136-145); Total Protein 4.6 g/dL (6.4-8.9); Triglycerides 61 mg/dL (< 150); eGFR For African Americans > 60 (> 60); eGFR For Non-African Americans > 60 (> 60)
[2017-05-28] MEDS: *HR* Heparin 5,000 UNIT/ML VIAL SQ SCH ×2 (06:30→17:00)
[2017-05-28] MEDS ORDERED: predniSONE 10 MG TABLET PO SCH (09:00)
[2017-05-28] MEDS ORDERED: Budesonide/Formoterol 160/4.5 MDI IH SCH (10:00)
[2017-05-28] MEDS ORDERED: Tiotropium 18 MCG inhalation IH SCH (10:00)
[2017-05-28] MEDS: Roflumilast [Daliresp] 500 MCG PO SCH (10:56)
[2017-05-28] MEDS: Aspirin 81 MG TAB.CHEW PO SCH (11:03)
[2017-05-28] MEDS: Primidone 50 MG TABLET PO SCH ×2 (11:03→20:43)
[2017-05-28] MEDS: Famotidine 20 MG TABLET PO SCH (11:03)
--- NOTE | 2017-05-28 16:41 | Internal Med Progress Note ---
Date of Encounter: 05/28/17 Time of Encounter: 16:38 - Assessment and plan (1) Weakness of right lower extremity Current Visit: Yes Status: Acute Assessment and plan: presented with bilateral lower extremity weakness which she reports was similar to previous CVAs. Head CT nonacute, brain MRI without evidence of acute infarct. Bilateral carotid Dopplers and echocardiogram pending. Cont home ASA (2) Bradycardia Current Visit: Yes Status: Acute Assessment and plan: with HRs in 50s. Heart rate continues to fluctuate but appears to be improving. Continue holding home BB. Monitor heart rate. Resume BP when able. (3) COPD (chronic obstructive pulmonary disease) Current Visit: Yes Status: Chronic Assessment and plan: per hx. Suspect exacerbation with shortness of breath, cough and wheezing. CXR non-acute. On chronic steroids at home. Increased to steroid burst, no increase in sputum production, afebrile and no elevated WBC. Hold on ATB at this time. Continue steroid burst, bronchodilators. Qualifiers: COPD type: emphysema Emphysema type: panlobular Qualified Code(s): J43.1 - Panlobular emphysema (4) History of stroke Current Visit: No Status: Chronic Assessment and plan: hx 2 prior CVAs with no neurological deficit. Head CT nonacute. Brain MRI negative for acute infarct. Continue home ASA, statin. Resume BB when heart rate allows. (5) HLD (hyperlipidemia) Current Visit: No Status: Chronic Assessment and plan: per hx. Cont home statin Qualifiers: Hyperlipidemia type: pure hypercholesterolemia Qualified Code(s): E78.00 - Pure hypercholesterolemia, unspecified; E78.0 - Pure hypercholesterolemia (6) HTN (hypertension) Current Visit: No Status: Chronic Assessment and plan: per hx. BP on the high side with SBP's in 150s. Home BB on hold secondary to bradycardia. Add amlodipine. Monitor BP and titrate PRN Qualifiers: Hypertension type: essential hypertension Qualified Code(s): I10 - Essential (primary) hypertension (7) DVT prophylaxis Current Visit: Yes Status: Acute Assessment and plan: heparin - Subjective Interval history: Seen and examined at bedside. Patient is new to me. Information obtained from chart review and patient report. Patient says he feels better on my exam. Reports an episode of right flank pain earlier this morning which is now resolved. No further lower extremity weakness. Still with some shortness of breath and nonproductive cough. Does not feel he is ready to go home today. - Constitutional Vitals: Temp Pulse Resp BP Pulse Ox 97.6 F 62 18 156/89 96 05/28/17 16:16 05/28/17 16:16 05/28/17 16:16 05/28/17 16:16 05/28/17 16:16 General appearance: Present: cooperative, A&O X 3, pleasant, no acute distress, answers questions appropriately - Head Head exam: Present: atraumatic, normocephalic - Eye Eye exam: Present: PERRL, conjuntiva pink, sclera anicteric Pupils: Present: PERRL - Neck Neck exam general surgery: Present: supple, trachea midline. Absent: lymphadenopathy - Respiratory Respiratory exam: Present: decreased breath sounds, rhonchi. Absent: accessory muscle use, rales, wheezes - Cardiovascular Cardiovascular exam: Present: RRR, +S1, +S2. Absent: diastolic murmur, gallop, rubs, systolic murmur - GI/Abdominal GI/Abdominal exam: Present: normal bowel sounds, soft, no peritoneal signs. Absent: distended, tenderness - Extremities Exam Extremities exam: Present: warm, radial pulses palpable and symmetrical. Absent : calf tenderness, cyanotic, pedal edema - Neurological Exam Neurological exam: Present: CN II-XII intact, oriented X3, no focal deficits. Absent: pronater drift, facial droop, speech deficit - Skin Skin exam: Present: dry, intact Internal Medicine: Result - Labs CBC & Chem 7: 05/28/17 03:28 05/28/17 03:28 Labs: Short CBC 05/28/17 Range/Units 03:28 WBC 5.4 (4.3-11.1) K/mcL Hgb 12.2 L D (12.9-16.9) g/dL Hct 37.6 (37.5-50.1) % Plt Count 165 (140-400) K/mcL Neutrophils # 3.7 (1.6-8.9) K/mcL BMP 05/28/17 03:28 Sodium 141 Potassium 3.5 Chloride 108 H Carbon Dioxide 28 BUN 15 Creatinine 0.89 Glucose 90 Calcium 8.0 L Liver Function 05/28/17 Range/Units 03:28 Total Bilirubin 0.3 (0.3-1.0) mg/dL AST 18 (13-39) Units/L ALT 20 (7-52) Units/L Alkaline Phosphatase 61 (34-104) Units/L Albumin 2.8 L (3.5-5.7) g/dL Urine 05/28/17 Range/Units 00:15 Urine Color Yellow (Yellow) Urine Clarity Clear (Clear) Urine pH 5.5 (5.0-8.0) pH Units Ur Specific [place] > 1.030 H (1.010-1.025) Urine Protein Negative (Neg-Trace) mg/dL Urine Glucose (UA) Normal (Normal) mg/dL - ABG Interpretation ABG results: PT/INR, D-dimer PT 12.6 Seconds (9.4-12.1) H 05/28/17 03:28 - Impressions Impressions Chest X-Ray 05/27/17 21:54 IMPRESSION: No acute process. D/ / Dru Bonilla MD / Dru Bonilla MD Interpreting Provider: Dru Bonilla MD Brain MRI 05/28/17 21:47 IMPRESSION: Cerebral atrophy. Moderate chronic small vessel ischemic changes. No acute brain parenchymal abnormality. D/ / 05/28/2017 08:44:51 Ebony Armas MD / rico Interpreting Provider: Ebony Armas MD Consult Discharge Plan - Plan Referrals: Talita Coffey, ADMIN ASST [Primary Care Provider] -
[2017-05-28] MEDS: predniSONE 20 MG TABLET PO SCH (16:59)
[2017-05-28 18:13] LABS: Adenovirus Not Detected (Not Detect); Bordetella Pertussis Not Detected (Not Detect); Chlamydophila pneumoniae Not Detected (Not Detect); Coronavirus 229E Not Detected (Not Detect); Coronavirus HKU1 Not Detected (Not Detect); Coronavirus NL63 Not Detected (Not Detect); Coronavirus OC43 Not Detected (Not Detect); Human Metapneumovirus Not Detected (Not Detect); Human Rhinovirus/Enterovirus Not Detected (Not Detect); Influenza A Subtype 2009 H1 Not Detected (Not Detect); Influenza A Untypeable Not Detected (Not Detect); Influenza B Not Detected (Not Detect); Mycoplasma pneumoniae Not Detected (Not Detect); Parainfluenza Virus 1 Not Detected (Not Detect); Parainfluenza Virus 2 Not Detected (Not Detect); Parainfluenza Virus 3 Not Detected (Not Detect); Parainfluenza Virus 4 Not Detected (Not Detect); Respiratory Syncytial Virus Not Detected (Not Detect)
[2017-05-29] MEDS: Ipratropium/Albuterol Neb 3 ML IH SCH ×4 (03:41→22:41)
[2017-05-29] MEDS: *HR* Heparin 5,000 UNIT/ML VIAL SQ SCH ×2 (05:57→17:51)
[2017-05-29 08:33] LABS: Hematocrit 38.3 % (37.5-50.1); Hemoglobin 12.2 g/dL (12.9-16.9); Mean Corpuscular HGB Conc 31.9 g/dL (31.6-35.5); Mean Corpuscular Hemoglobin 30.7 pg (28.0-33.3); Mean Corpuscular Volume 96.5 fL (83.0-100.0); Mean Platelet Volume 10.5 fL (9.4-12.4); Platelet Count 176 K/mcL (140-400); Red Blood Count 3.97 M/mcL (4.19-5.50); Red Cell Distribution Width 13.1 % (11.5-14.5)
[2017-05-29] MEDS: Primidone 50 MG TABLET PO SCH ×2 (08:48→20:18)
[2017-05-29] MEDS: predniSONE 20 MG TABLET PO SCH (08:49)
[2017-05-29] MEDS: Famotidine 20 MG TABLET PO SCH (08:50)
[2017-05-29] MEDS: Aspirin 81 MG TAB.CHEW PO SCH (08:51)
[2017-05-29] MEDS: Roflumilast [Daliresp] 500 MCG PO SCH (08:52)
--- NOTE | 2017-05-29 16:40 | Internal Med Progress Note ---
Date of Encounter: 05/29/17 Time of Encounter: 16:38 - Assessment and plan (1) Weakness of right lower extremity Current Visit: Yes Status: Acute Assessment and plan: presented with bilateral lower extremity weakness which she reports was similar to previous CVAs. Head CT nonacute, brain MRI without evidence of acute infarct. TTE with EF 60%, no valvular abnormalities, no wall motion abnormalities. Bilateral carotid Dopplers pending. Cont home ASA (2) Bradycardia Current Visit: Yes Status: Acute Assessment and plan: with HRs in 50s on arrival. HR improved with holding home BB. Resume home BB at lower dose. Monitor BP and HR (3) COPD (chronic obstructive pulmonary disease) Current Visit: Yes Status: Chronic Assessment and plan: per hx. Suspect exacerbation with shortness of breath, cough and wheezing. CXR non-acute. On chronic steroids at home. Increased to steroid burst, no increase in sputum production, afebrile and no elevated WBC. Hold on ATB at this time. Continue steroid burst, bronchodilators. Qualifiers: COPD type: emphysema Emphysema type: panlobular Qualified Code(s): J43.1 - Panlobular emphysema (4) History of stroke Current Visit: No Status: Chronic Assessment and plan: hx 2 prior CVAs with no neurological deficit. Head CT nonacute. Brain MRI negative for acute infarct. Continue home ASA, statin. Resume BB when heart rate allows. (5) HLD (hyperlipidemia) Current Visit: No Status: Chronic Assessment and plan: per hx. Cont home statin Qualifiers: Hyperlipidemia type: pure hypercholesterolemia Qualified Code(s): E78.00 - Pure hypercholesterolemia, unspecified; E78.0 - Pure hypercholesterolemia (6) HTN (hypertension) Current Visit: No Status: Chronic Assessment and plan: per hx. BP on the high side with SBP's in 150s. Home BB initially on hold due to bradycardia. BP remains slightly elevated even with the addition of amlodipine. Restart home BB at lower dose. Monitor BP and titrate PRN Qualifiers: Hypertension type: essential hypertension Qualified Code(s): I10 - Essential (primary) hypertension (7) DVT prophylaxis Current Visit: Yes Status: Acute Assessment and plan: heparin - Subjective Interval history: Seen and examined at bedside; says he feels better but does not feel well enough to go home. He is requesting another night in the hospital. No further lower extremity weakness. Has nonproductive cough but overall improved. - Constitutional Vitals: Temp Pulse Resp BP Pulse Ox 98.1 F 74 17 136/83 98 05/29/17 11:29 05/29/17 11:29 05/29/17 11:29 05/29/17 11:29 05/29/17 11:29 General appearance: Present: cooperative, A&O X 3, pleasant, no acute distress, answers questions appropriately Internal Medicine: Result - Labs CBC & Chem 7: 05/29/17 05:44 05/28/17 03:28 Labs: Short CBC 05/29/17 Range/Units 05:44 WBC 5.3 (4.3-11.1) K/mcL Hgb 12.2 L (12.9-16.9) g/dL Hct 38.3 (37.5-50.1) % Plt Count 176 (140-400) K/mcL - ABG Interpretation ABG results: PT/INR, D-dimer PT 12.6 Seconds (9.4-12.1) H 05/28/17 03:28 - Impressions Impressions Echocardiogram 05/28/17 21:47 Impressions: LVEF 60%. Normal LV chamber size, wall thickness and function. Normal right ventricular structure and function. No significant valvular dysfunction. No pulmonary hypertension. Left Ventricular Wall Motion: Rest Echo Findings All wall segments showed normal motion. Findings: Study Quality * Technically adequate exam. ECG Findings * Sinus bradycardia. Left Ventricle * LVEF 60%. * Normal LV chamber size, wall thickness and function. * Indeterminate diastolic function. Right Ventricle * Normal right ventricular structure and function. Left Atrium * Normal left atrial size. Right Atrium * Normal right atrial size. Aortic Valve * No aortic regurgitation. * No aortic stenosis. * Mildly sclerotic aortic valve leaflets. Mitral Valve * Normal mitral valve structure. * No mitral regurgitation. * No mitral stenosis. Tricuspid Valve * No tricuspid regurgitation. * Normal tricuspid valve structure. Pulmonic Valve * Pulmonic valve is not well visualized. * No pulmonic stenosis. * Trace pulmonic regurgitation. Pulmonary Artery * Normal visualized portions of the main pulmonary artery. Aorta * Normally sized aortic root. * Ascending aorta not well visualized. Pericardium * There is no pericardial effusion present. Interatrial Septum * No evidence of PFO by color Doppler. IVC * The IVC is not well evaluated. Consult Discharge Plan - Plan Referrals: Talita Coffey, RECREATION ENGINEER [Primary Care Provider] -
[2017-05-29] MEDS: Metoprolol XL (24 HR) Succ 25 MG TAB.ER.24H PO SCH (17:50)
[2017-05-29] MEDS: Furosemide 20 MG TABLET PO PRN (17:52)
[2017-05-29] MEDS: Budesonide/Formoterol 160/4.5 MDI IH SCH (22:40)
[2017-05-30] MEDS: Ipratropium/Albuterol Neb 3 ML IH SCH ×4 (04:01→22:01)
[2017-05-30] MEDS: *HR* Heparin 5,000 UNIT/ML VIAL SQ SCH ×2 (05:52→18:02)
[2017-05-30] MEDS: Aspirin 81 MG TAB.CHEW PO SCH (08:55)
[2017-05-30] MEDS: predniSONE 20 MG TABLET PO SCH (08:56)
[2017-05-30] MEDS: Famotidine 20 MG TABLET PO SCH (08:57)
[2017-05-30] MEDS: Primidone 50 MG TABLET PO SCH ×2 (08:57→20:22)
[2017-05-30] MEDS: Metoprolol XL (24 HR) Succ 25 MG TAB.ER.24H PO SCH (08:57)
[2017-05-30] MEDS: Roflumilast [Daliresp] 500 MCG PO SCH (08:59)
[2017-05-30] MEDS: Furosemide 20 MG TABLET PO PRN (09:26)
[2017-05-30] MEDS: Budesonide/Formoterol 160/4.5 MDI IH SCH ×2 (10:59→22:01)
--- NOTE | 2017-05-30 16:20 | Internal Med Progress Note ---
Date of Encounter: 05/30/17 Time of Encounter: 16:18 - Assessment and plan (1) Weakness of right lower extremity Current Visit: Yes Status: Acute Assessment and plan: presented with bilateral lower extremity weakness which she reports was similar to previous CVAs. Head CT nonacute, brain MRI without evidence of acute infarct. TTE with EF 60%, no valvular abnormalities, no wall motion abnormalities. Bilateral carotid Dopplers with non-stenotic plaque. Etiology unknown but suspect mechanical etiology with multiple comorbidities. PT/OT consult. (2) Bradycardia Current Visit: Yes Status: Acute Assessment and plan: with HRs in 50s on arrival. HR improved with holding home BB. Resume home BB at lower dose. Monitor BP and HR (3) COPD (chronic obstructive pulmonary disease) Current Visit: Yes Status: Chronic Assessment and plan: per hx. Suspect exacerbation with shortness of breath, cough and wheezing. CXR non-acute. On chronic steroids at home. Increased to steroid burst, no increase in sputum production, afebrile and no elevated WBC. Hold on ATB at this time. Continue steroid burst, bronchodilators. Qualifiers: COPD type: emphysema Emphysema type: panlobular Qualified Code(s): J43.1 - Panlobular emphysema (4) History of stroke Current Visit: No Status: Chronic Assessment and plan: hx 2 prior CVAs with no neurological deficit. Head CT nonacute. Brain MRI negative for acute infarct. Continue home ASA, statin. Resume BB when heart rate allows. (5) HLD (hyperlipidemia) Current Visit: No Status: Chronic Assessment and plan: per hx. Cont home statin Qualifiers: Hyperlipidemia type: pure hypercholesterolemia Qualified Code(s): E78.00 - Pure hypercholesterolemia, unspecified; E78.0 - Pure hypercholesterolemia (6) HTN (hypertension) Current Visit: No Status: Chronic Assessment and plan: per hx. BP on the high side with SBP's in 150s. Home BB initially on hold due to bradycardia. BP remains slightly elevated even with the addition of amlodipine. Restart home BB at lower dose. Monitor BP and titrate PRN Qualifiers: Hypertension type: essential hypertension Qualified Code(s): I10 - Essential (primary) hypertension (7) DVT prophylaxis Current Visit: Yes Status: Acute Assessment and plan: heparin - Subjective Interval history: Seen and examined at bedside; says he feels better but does not feel well enough to go home. He is requesting another night in the hospital. No further lower extremity weakness. Has nonproductive cough but overall improved. - Constitutional Vitals: Temp Pulse Resp BP Pulse Ox 97.2 F L 64 18 106/67 98 05/30/17 15:45 05/30/17 15:45 05/30/17 15:45 05/30/17 15:45 05/30/17 15:45 General appearance: Present: cooperative, A&O X 3, pleasant, no acute distress, answers questions appropriately Internal Medicine: Result - Labs CBC & Chem 7: 05/29/17 05:44 05/28/17 03:28 - ABG Interpretation ABG results: PT/INR, D-dimer PT 12.6 Seconds (9.4-12.1) H 05/28/17 03:28 - Impressions Impressions Brain MRI 05/28/17 21:47 IMPRESSION: Cerebral atrophy. Moderate chronic small vessel ischemic changes. No acute brain parenchymal abnormality. D/ / 05/28/2017 08:44:51 Ebony Armas MD / rico Interpreting Provider: Ebony Armas MD Consult Discharge Plan - Plan Referrals: Talita Coffey, LICENSING ENGINEER [Primary Care Provider] -
--- NOTE | 2017-05-30 18:42 | Electrocardiograph Report ---
[address] [place], [place] [address] Test Date: 2017-05-27 Pat Name: Ellis Amor Department: 103 Room: 3B Gender: M Chief Innovation Officer: : 1950 Requested By: Adelso Lopez Order Number: [id number] Reading MD: Phu Howard MD Measurements Intervals [place] Rate: 51 P: 33 MT: 137 QRS: 68 QRSD: 78 T: 67 QT: 422 QTc: 399 Interpretive Statements SINUS BRADYCARDIA Electronically Signed On 05-30-2017 18:40:40 EDT by Phu Howard MD
[2017-05-31] MEDS: Ipratropium/Albuterol Neb 3 ML IH SCH ×4 (04:04→21:45)
[2017-05-31] MEDS: *HR* Heparin 5,000 UNIT/ML VIAL SQ SCH ×2 (06:20→17:55)
[2017-05-31] MEDS: Primidone 50 MG TABLET PO SCH ×2 (08:20→20:40)
[2017-05-31] MEDS: Aspirin 81 MG TAB.CHEW PO SCH (08:20)
[2017-05-31] MEDS: Metoprolol XL (24 HR) Succ 25 MG TAB.ER.24H PO SCH (08:21)
[2017-05-31] MEDS: Furosemide 20 MG TABLET PO PRN (08:21)
[2017-05-31] MEDS: Famotidine 20 MG TABLET PO SCH (08:22)
[2017-05-31] MEDS: predniSONE 20 MG TABLET PO SCH (08:22)
[2017-05-31] MEDS: Roflumilast [Daliresp] 500 MCG PO SCH (08:23)
[2017-05-31] MEDS: Budesonide/Formoterol 160/4.5 MDI IH SCH ×2 (10:45→21:44)
--- NOTE | 2017-05-31 15:25 | Internal Med Progress Note ---
Date of Encounter: 05/31/17 Time of Encounter: 15:18 - Assessment and plan (1) Weakness of right lower extremity Current Visit: Yes Status: Acute Assessment and plan: presented with bilateral lower extremity weakness which she reports was similar to previous CVAs. Head CT nonacute, brain MRI without evidence of acute infarct. TTE with EF 60%, no valvular abnormalities, no wall motion abnormalities. Bilateral carotid Dopplers with non-stenotic plaque. Etiology unknown but suspect mechanical etiology with multiple comorbidities. PT/OT following (2) Bradycardia Current Visit: Yes Status: Acute Assessment and plan: with HRs in 50s on arrival. HR improved with holding home BB. Resume home BB at lower dose. Monitor BP and HR (3) COPD (chronic obstructive pulmonary disease) Current Visit: Yes Status: Chronic Assessment and plan: per hx. Suspect exacerbation with shortness of breath, cough and wheezing. CXR non-acute. On chronic steroids at home. Increased to steroid burst, no increase in sputum production, afebrile and no elevated WBC. Hold on ATB at this time. Continue steroid burst, bronchodilators. Qualifiers: COPD type: emphysema Emphysema type: panlobular Qualified Code(s): J43.1 - Panlobular emphysema (4) History of stroke Current Visit: No Status: Chronic Assessment and plan: hx 2 prior CVAs with no neurological deficit. Head CT nonacute. Brain MRI negative for acute infarct. Continue home ASA, statin, BB (5) HLD (hyperlipidemia) Current Visit: No Status: Chronic Assessment and plan: per hx. Cont home statin Qualifiers: Hyperlipidemia type: pure hypercholesterolemia Qualified Code(s): E78.00 - Pure hypercholesterolemia, unspecified; E78.0 - Pure hypercholesterolemia (6) HTN (hypertension) Current Visit: No Status: Chronic Assessment and plan: per hx. BP on the high side with SBP's in 150s. Home BB initially on hold due to bradycardia. BP remains slightly elevated even with the addition of amlodipine. Restart home BB at lower dose. Monitor BP and titrate PRN. BP improved 05/31/17 Qualifiers: Hypertension type: essential hypertension Qualified Code(s): I10 - Essential (primary) hypertension (7) Hematuria Current Visit: Yes Status: Acute Assessment and plan: On 05/31/17 afternoon. He does report right flank pain a few days ago and prior history of renal stones. Bladder scan shows 156 mL's postvoid residual. Check stat H&H, ABD/pelvis CT. Qualifiers: Hematuria type: gross Qualified Code(s): R31.0 - Gross hematuria (8) DVT prophylaxis Current Visit: Yes Status: Acute Assessment and plan: hepain - Subjective Interval history: Seen and examined at bedside; says he feels better overall but he is still unsure about discharge. Says he is unsteady on his feet and is concerned to go home. He also had an episode of acute, gross hematuria this afternoon. He does report intermittent right flank pain. Says it was severe the other morning when he woke up. Denies flank pain now. No dysuria. - Constitutional Vitals: Temp Pulse Resp BP Pulse Ox 98.7 F 94 16 126/77 95 05/31/17 15:06 05/31/17 15:06 05/31/17 15:06 05/31/17 15:06 05/31/17 15:06 General appearance: Present: cooperative, A&O X 3, pleasant, no acute distress, answers questions appropriately - Head Head exam: Present: atraumatic, normocephalic - Eye Eye exam: Present: PERRL, conjuntiva pink, sclera anicteric Pupils: Present: PERRL - Neck Neck exam general surgery: Present: supple, trachea midline. Absent: lymphadenopathy - Respiratory Respiratory exam: Present: CTAB. Absent: accessory muscle use, rales, rhonchi, wheezes - Cardiovascular Cardiovascular exam: Present: RRR, +S1, +S2. Absent: diastolic murmur, gallop, rubs, systolic murmur - GI/Abdominal GI/Abdominal exam: Present: normal bowel sounds, soft, no peritoneal signs. Absent: distended, tenderness - Extremities Exam Extremities exam: Present: warm, radial pulses palpable and symmetrical. Absent : calf tenderness, cyanotic, pedal edema - Neurological Exam Neurological exam: Present: CN II-XII intact, oriented X3, no focal deficits. Absent: pronater drift, facial droop, speech deficit - Skin Skin exam: Present: dry, intact Internal Medicine: Result - Labs CBC & Chem 7: 05/29/17 05:44 05/28/17 03:28 - ABG Interpretation ABG results: PT/INR, D-dimer PT 12.6 Seconds (9.4-12.1) H 05/28/17 03:28 Consult Discharge Plan - Plan Referrals: Talita Coffey, ONLINE MARKETING STRATEGIST [Primary Care Provider] -
[2017-05-31 16:50] LABS: Hemoglobin 12.2 g/dL (12.9-16.9)
[2017-06-01] MEDS: Ipratropium/Albuterol Neb 3 ML IH SCH ×4 (04:25→22:32)
[2017-06-01 04:46] LABS: Hematocrit 35.8 % (37.5-50.1); Hemoglobin 11.6 g/dL (12.9-16.9)
[2017-06-01] MEDS: *HR* Heparin 5,000 UNIT/ML VIAL SQ SCH ×2 (06:13→17:43)
[2017-06-01] MEDS: Metoprolol XL (24 HR) Succ 25 MG TAB.ER.24H PO SCH (09:27)
[2017-06-01] MEDS: Aspirin 81 MG TAB.CHEW PO SCH (09:27)
[2017-06-01] MEDS: Famotidine 20 MG TABLET PO SCH (09:27)
[2017-06-01] MEDS: Roflumilast [Daliresp] 500 MCG PO SCH (09:27)
[2017-06-01] MEDS: Primidone 50 MG TABLET PO SCH ×2 (09:27→21:19)
[2017-06-01] MEDS: predniSONE 20 MG TABLET PO SCH (09:27)
[2017-06-01] MEDS: Budesonide/Formoterol 160/4.5 MDI IH SCH ×2 (10:34→22:32)
[2017-06-01] MEDS: Furosemide 20 MG TABLET PO PRN (14:54)
[2017-06-01 16:39] LABS: Bilirubin,Urine Negative (Negative); Blood,Urine Negative (Negative); Clarity,Urine Turbid (Clear); Color,Urine Yellow (Yellow); Glucose,Urine (UA) Normal (Normal); Ketones,Urine Negative (Negative); Leukocyte Esterase,Urine Negative (Negative); Nitrite,Urine Negative (Negative); PH,Urine 7.5 pH Units (5.0-8.0); Protein,Urine Negative (Neg-Trace); Specific Gravity,Urine 1.023 (1.010-1.025); Urobilinogen,Urine Normal (Normal)
[2017-06-01 16:41] LABS: Bacteria,Urine None Seen per hpf (None-Few); Hyaline Casts,Urine None Seen per lpf (None-Few); Squamous Epithelial Cell,Urine Few per lpf (None-Few); WBC,Urine 0-3 per hpf (0-3)
--- NOTE | 2017-06-01 18:05 | Internal Med Progress Note ---
Date of Encounter: 06/01/17 Time of Encounter: 18:16 - Assessment and plan (1) Weakness of right lower extremity Current Visit: Yes Status: Acute Assessment and plan: presented with bilateral lower extremity weakness which she reports was similar to previous CVAs. Head CT nonacute, brain MRI without evidence of acute infarct. TTE with EF 60%, no valvular abnormalities, no wall motion abnormalities. Bilateral carotid Dopplers with non-stenotic plaque. Etiology unknown but suspect mechanical etiology with multiple comorbidities. PT/OT consult. (2) Bradycardia Current Visit: Yes Status: Acute Assessment and plan: with HRs in 50s on arrival. HR improved with holding home BB. Resume home BB at lower dose. Monitor BP and HR (3) COPD (chronic obstructive pulmonary disease) Current Visit: Yes Status: Chronic Assessment and plan: per hx. Suspect exacerbation with shortness of breath, cough and wheezing. CXR non-acute. On chronic steroids at home. Increased to steroid burst, no increase in sputum production, afebrile and no elevated WBC. Hold on ATB at this time. Continue steroid burst, bronchodilators. Qualifiers: COPD type: emphysema Emphysema type: panlobular Qualified Code(s): J43.1 - Panlobular emphysema (4) History of stroke Current Visit: No Status: Chronic Assessment and plan: hx 2 prior CVAs with no neurological deficit. Head CT nonacute. Brain MRI negative for acute infarct. Continue home ASA, statin. Resume BB when heart rate allows. (5) HLD (hyperlipidemia) Current Visit: No Status: Chronic Assessment and plan: per hx. Cont home statin Qualifiers: Hyperlipidemia type: pure hypercholesterolemia Qualified Code(s): E78.00 - Pure hypercholesterolemia, unspecified; E78.0 - Pure hypercholesterolemia (6) HTN (hypertension) Current Visit: No Status: Chronic Assessment and plan: per hx. BP on the high side with SBP's in 150s. Home BB initially on hold due to bradycardia. BP remains slightly elevated even with the addition of amlodipine. Restart home BB at lower dose. Monitor BP and titrate PRN Qualifiers: Hypertension type: essential hypertension Qualified Code(s): I10 - Essential (primary) hypertension (7) Hematuria Current Visit: Yes Status: Acute Assessment and plan: reported on 05/31 exam however UA negative for blood. ABD CT with to M&M nonobstructing left renal calculus. Hgb stable. No further workup indicated at this time. Qualifiers: Hematuria type: gross Qualified Code(s): R31.0 - Gross hematuria (8) DVT prophylaxis Current Visit: Yes Status: Acute Assessment and plan: heparin - Subjective Interval history: Seen and examined at bedside. He says he feels okay however he still does not want to be discharged home today he is asking for another night in the hospital. Will encourage patient to return home with outpatient follow-up however he stated he would just turn around and come back to the emergency room. Reviewed testing with him in detail. Plan to discharge home tomorrow - Constitutional Vitals: Temp Pulse Resp BP Pulse Ox 98.6 F 62 18 126/77 97 06/01/17 15:47 06/01/17 15:47 06/01/17 16:04 06/01/17 15:47 06/01/17 16:04 General appearance: Present: cooperative, A&O X 3, pleasant, no acute distress, answers questions appropriately - Head Head exam: Present: atraumatic, normocephalic - Eye Eye exam: Present: PERRL, conjuntiva pink, sclera anicteric Pupils: Present: PERRL - Neck Neck exam general surgery: Present: supple, trachea midline. Absent: lymphadenopathy - Respiratory Respiratory exam: Present: CTAB. Absent: accessory muscle use, rales, rhonchi, wheezes - Cardiovascular Cardiovascular exam: Present: RRR, +S1, +S2. Absent: diastolic murmur, gallop, rubs, systolic murmur - GI/Abdominal GI/Abdominal exam: Present: normal bowel sounds, soft, no peritoneal signs. Absent: distended, tenderness - Extremities Exam Extremities exam: Present: warm, radial pulses palpable and symmetrical. Absent : calf tenderness, cyanotic, pedal edema - Neurological Exam Neurological exam: Present: CN II-XII intact, oriented X3, no focal deficits. Absent: pronater drift, facial droop, speech deficit - Skin Skin exam: Present: dry, intact Internal Medicine: Result - Labs CBC & Chem 7: 06/01/17 03:25 18 03:28 Labs: Short CBC 06/01/17 Range/Units 03:25 Hgb 11.6 L (12.9-16.9) g/dL Hct 35.8 L (37.5-50.1) % Urine 06/01/17 Range/Units 16:20 Urine Color Yellow (Yellow) Urine Clarity Turbid A (Clear) Urine pH 7.5 (5.0-8.0) pH Units Ur Specific [place] 1.023 (1.010-1.025) Urine Protein Negative (Neg-Trace) mg/dL Urine Glucose (UA) Normal (Normal) mg/dL - ABG Interpretation ABG results: PT/INR, D-dimer PT 12.6 Seconds (9.4-12.1) H 05/28/17 03:28 Consult Discharge Plan - Plan Referrals: Talita Coffey, ELECTRICIAN MASTER [Primary Care Provider] -
[2017-06-01] MEDS: Neosporin OINT 15 GM TUBE TP SCH (21:18)
[2017-06-02] MEDS: Ipratropium/Albuterol Neb 3 ML IH SCH ×2 (04:10→09:29)
[2017-06-02] MEDS: *HR* Heparin 5,000 UNIT/ML VIAL SQ SCH (05:35)
[2017-06-02 09:07] LABS: Hematocrit 39.4 % (37.5-50.1); Hemoglobin 12.3 g/dL (12.9-16.9)
[2017-06-02] MEDS: Budesonide/Formoterol 160/4.5 MDI IH SCH (09:29)
[2017-06-02] MEDS: Famotidine 20 MG TABLET PO SCH (09:57)
[2017-06-02] MEDS: predniSONE 20 MG TABLET PO SCH (09:57)
[2017-06-02] MEDS: Primidone 50 MG TABLET PO SCH (09:57)
[2017-06-02] MEDS: Metoprolol XL (24 HR) Succ 25 MG TAB.ER.24H PO SCH (09:57)
[2017-06-02] MEDS: Roflumilast [Daliresp] 500 MCG PO SCH (09:58)
[2017-06-02] MEDS: Aspirin 81 MG TAB.CHEW PO SCH (09:58)
[2017-06-02] MEDS: Neosporin OINT 15 GM TUBE TP SCH (09:59)
--- NOTE | 2017-06-02 10:34 | Discharge Summary ---
Orders not resulted at time of discharge: Pending orders 06/02/17 08:06 Occult Blood,Stool [BF] Stat Date of Encounter: 06/02/17 Time of Encounter: 10:15 - Discharge Diagnosis (1) Anemia Priority: Secondary Status: Chronic Comments: Pt with intermittent anemia dating back to 2015. Repeat H and H this am was 12.3 , almost back to WNL. Pt has no hematuria, iron, percent saturation, folate, and B12 were all within normal limits in March,. Patient is stable and denies further hematuria, melena, or hematochezia. Most likely due to chronic disease, specifically COPD. Patient will need to follow up with primary care provider. Qualifiers: Anemia type: unspecified type Qualified Code(s): D64.9 - Anemia, unspecified (2) Bradycardia Priority: Secondary Status: Acute Comments: Patient's pulses within normal limits this morning. Beta rodríguez was held initially, it has been resumed at a lower dose. Follow with primary care. (3) COPD (chronic obstructive pulmonary disease) Priority: Secondary Status: Chronic Comments: Chronic. Patient is back at his baseline use. He has no wheezing. Lungs are clear and diminished throughout and he is in no respiratory distress. Continue steroid taper and bronchodilators/inhalers at home. Patient is afebrile and has no leukocytosis. Patient is back at his normal baseline O2 use. Patient has a portable tank in his room, he has oxygen at home. Qualifiers: COPD type: emphysema Emphysema type: panlobular Qualified Code(s): J43.1 - Panlobular emphysema (4) Hematuria Priority: Secondary Status: Acute Comments: Patient reported hematuria on exam to previous nurse practitioner, UA is negative for blood. Abdomen CT showed nonobstructing left renal calculus. Hemoglobin is improving and stable. No further required workup. Qualifiers: Hematuria type: gross Qualified Code(s): R31.0 - Gross hematuria (5) History of stroke Priority: Secondary Status: Chronic Comments: Per pt history. Head CT negative for acute stroke, Brain MRI negative for acute infarct. Continue ASA, statin and resume BB at lowered dose at home. (6) HLD (hyperlipidemia) Priority: Secondary Status: Chronic Comments: Continue home medications. Qualifiers: Hyperlipidemia type: pure hypercholesterolemia Qualified Code(s): E78.00 - Pure hypercholesterolemia, unspecified; E78.0 - Pure hypercholesterolemia (7) HTN (hypertension) Priority: Secondary Status: Chronic Comments: Chronic. Continue home medications. Qualifiers: Hypertension type: essential hypertension Qualified Code(s): I10 - Essential (primary) hypertension (8) Weakness of right lower extremity Priority: Primary Status: Acute Comments: Pt presented to the ED with c/o BLE weakness and reports that is was the same as his prior CVA symptoms. Heat CT and Brain MRI negative for acute infarct. Echo with preserved EF, no valvular dysfunction, no wall motion abnormalities. [place] carotid dopplers with non-stenotic plaque. Suspect mechanical etiology, pt with multiple comorbidiites that would precipitate physical deconditioning including prior CVA and COPD with frequent exacerbations. Pt will have PT/OT at home with [facility]. (9) DVT prophylaxis Priority: Secondary Status: Acute Comments: Heparin subcutaneous. Hospital course: Mr. Amor is a 66 year old male with past medical history of hypertension, hyperlipidemia, CVA, COPD. Patient presented to the emergency department with right lower extremity weakness acute exacerbation of COPD. All imaging was negative, echocardiogram with preserved ejection fraction and no valvular dysfunction, normal wall motion. Carotids are normal with nonstenotic plaque bilaterally. Unclear etiology other than mechanical, patient with multiple comorbidities that would precipitate physical deconditioning and weakness. Patient reported hematuria one point, urine was negative. Patient has intermittent anemia dating back 2 years, his hemoglobin has improved and is stable. Iron, folate, B12 all within normal limits. Patient will be discharged with [facility] and orders for physical therapy. He will continue his home medications other than metoprolol twice daily due to bradycardia. He has been switched to Toprol-XL 25 mg daily instead. This pulses within normal limits. He will also be sent home with a lengthy prednisone taper. She has returned to his normal baseline oxygen use, he has home O2, and a portable tank in his room. He is to return to his normal prednisone use after taper is completed. This [facility]. I recommend close follow-up with primary care, nurse navigator, home health, and physical therapy to avoid readmissions. Patient is stable and appropriate for discharge. - Time Spent with Patient Total time spent providing and/or coordinating discharge services: Less than 30 minutes - Discharge Medications Prescriptions: Metoprolol XL (24 HR) Succ [Toprol Xl] 25 mg PO DAILY #30 tab.er.24h predniSONE [PredniSONE] 10 mg PO DAILY #40 tablet Home Medications: Mometasone/Formoterol [Dulera 200 Mcg/5 Mcg Inhaler] 2 puff IH BID 01/25/16 [ History] Aspirin 81 mg PO DAILY #30 tab.chew 05/20/16 [Rx] Acetaminophen [Tylenol] 500 mg PO Q6H PRN 08/26/16 [History] Primidone [Mysoline] 50 mg PO BID 08/26/16 [History] Theophylline Anhydrous [Curt-24] 100 mg PO DAILY 10/04/16 [History] Docusate [Colace] 100 mg PO BID PRN 11/02/16 [History] Roflumilast [Daliresp] 500 mcg PO DAILY 11/02/16 [History] Buspirone HCl [Buspar] 15 mg PO BID 02/28/17 [History] Famotidine [Pepcid] 20 mg PO DAILY 02/28/17 [History] GuaiFENesin ER [Mucinex] 600 mg PO Q12H PRN 02/28/17 [History] Ipratropium/Albuterol Neb [Duoneb] 3 ml IH [id number] inhsol 03/25/17 [Rx] Ergocalciferol (VITAMIN D2) [Vitamin D2] 50,000 unit PO FR 04/22/17 [History] predniSONE [PredniSONE] 10 mg PO DAILY 04/22/17 [History] Calcium Carbonate [Calcium] 600 mg PO BIDWM 05/27/17 [History] Furosemide [Lasix] 20 mg PO DAILY PRN 05/27/17 [History] Lovastatin 40 mg PO HS 05/27/17 [History] Sertraline [Zoloft] 50 mg PO DAILY 05/27/17 [History] Tiotropium [place] [Spiriva Respimat] 2 puff IH DAILY 05/27/17 [History] Metoprolol XL (24 HR) Succ [Toprol Xl] 25 mg PO DAILY #30 tab.er.24h 06/02/17 [ Rx] predniSONE [PredniSONE] 10 mg PO DAILY #40 tablet 06/02/17 [Rx] Allergies/Adverse Reactions: 3 Allergy/AdvReac Type Severity Reaction Status Date / Time azithromycin [From Zithromax] AdvReac See Verified 05/27/17 18:37 Comments hydrochlorothiazide AdvReac Difficulty Verified 05/27/17 18:37 Breathing ibuprofen [From Motrin] AdvReac Gastrointestinal Verified 05/27/17 18:37 Upset levofloxacin [From Levaquin] AdvReac See Verified 05/27/17 18:37 Comments Date of admission: 05/31/17 15:30 Primary care physician: Talita Coffey CNP Consults: 05/31/17 16:37 Consult to Equipment Operat0R [CONS] Routine Reason for SW Consult: may need home health Discharging clinician: Almaz Cohen Anticipated date of discharge: 06/02/17 - Constitutional Vitals: Temp Pulse Resp BP Pulse Ox 98.6 F 62 17 140/82 97 06/02/17 07:02 06/02/17 07:02 06/02/17 09:29 06/02/17 07:02 06/02/17 09:29 General appearance: Present: cooperative, A&O X 3, pleasant, no acute distress, answers questions appropriately - Head Head exam: Present: atraumatic, normal inspection, normocephalic - Eye Eye exam: Present: normal appearance, conjuntiva pink, sclera anicteric - Neck Neck exam general surgery: Present: normal inspection, supple, trachea midline. Absent: lymphadenopathy, tenderness - Respiratory Respiratory exam: Present: CTAB. Absent: accessory muscle use, rales, rhonchi, wheezes - Cardiovascular Cardiovascular exam: Present: RRR, +S1, +S2. Absent: diastolic murmur, gallop, rubs, systolic murmur - GI/Abdominal GI/Abdominal exam: Present: normal bowel sounds, soft. Absent: distended, hepatomegaly, tenderness - Extremities Exam Extremities exam: Present: normal capillary refill, normal inspection, warm, radial pulses palpable and symmetrical. Absent: calf tenderness, cyanotic, pedal edema, tenderness - Neurological Exam Neurological exam: Present: alert, no focal deficits, strengths equal and symetr throughout. Absent: facial droop, speech deficit - Skin Skin exam: Present: dry, intact, normal color, warm. Absent: rash - Patient Status Disposition: Home Health Service Condition: Good Functional capacity at discharge: uses cane/walker Overall status at discharge: patient is back to baseline - Discharge Instructions Follow Up With: Donini,Talita N, MACHINE STITCHER [Primary Care Provider] - Additional Instructions: The prescription for your steroid taper and your new blood pressure medication has been called into [facility]. Stop taking your metoprolol twice daily and start taking Toprol XL once daily After you finish or steroid taper, he may begin taking your 10 mg prednisone daily as you normally would. You will be getting physical therapy through [facility]. Return to your normal activities and diet as tolerated. Resume your other home medications. Follow up with your nurse navigator frequently, take your medications as directed, wear your oxygen, and follow up with your primary care provider as scheduled. - Diet and Activity Activity: as per physical therapy, increase activity as tolerated, wear oxygen at all times Diet: advance to your usual diet
[2017-06-02 11:26] VITALS: BP 125/74
--- NOTE | 2017-06-02 12:26 | Physician Discharge Referral ---
Home Health/Hosp Referral Info Transfer to: Home Health Provider in Charge Post Discharge: PCP - Diagnosis (1) Anemia Priority: Secondary Status: Chronic (2) Bradycardia Priority: Secondary Status: Acute (3) COPD (chronic obstructive pulmonary disease) Priority: Primary Status: Chronic (4) Hematuria Priority: Secondary Status: Acute (5) History of stroke Priority: Secondary Status: Chronic (6) HLD (hyperlipidemia) Priority: Secondary Status: Chronic (7) HTN (hypertension) Status: Chronic (8) Weakness of right lower extremity Priority: Secondary Status: Acute (9) DVT prophylaxis Priority: Secondary Status: Acute - Respiratory Orders Oxygen / L per min (2 liters 02) Smoking Cessation: Smoking cessation has been advised. For more information, call the [place] Tobacco Quit Line at 1-533-TREA-NOW. - Diet/Nutrition Diet/Nutrition Orders: Regular - Activity Activity Orders: Up ad jose, Walker - Services Needed Following services are medically necessary services: Nursing, Home Health Aide, Physical Therapy, Occupational Therapy, Med Social Work - Transfer Medications Prescriptions: Metoprolol XL (24 HR) Succ [Toprol Xl] 25 mg PO DAILY #30 tab.er.24h predniSONE [PredniSONE] 10 mg PO DAILY #40 tablet Home Medications: Mometasone/Formoterol [Dulera 200 Mcg/5 Mcg Inhaler] 2 puff IH BID 01/25/16 [ History] Aspirin 81 mg PO DAILY #30 tab.chew 05/20/16 [Rx] Acetaminophen [Tylenol] 500 mg PO Q6H PRN 08/26/16 [History] Primidone [Mysoline] 50 mg PO BID 08/26/16 [History] Theophylline Anhydrous [Curt-24] 100 mg PO DAILY 10/04/16 [History] Docusate [Colace] 100 mg PO BID PRN 11/02/16 [History] Roflumilast [Daliresp] 500 mcg PO DAILY 11/02/16 [History] Buspirone HCl [Buspar] 15 mg PO BID 02/28/17 [History] Famotidine [Pepcid] 20 mg PO DAILY 02/28/17 [History] GuaiFENesin ER [Mucinex] 600 mg PO Q12H PRN 02/28/17 [History] Ipratropium/Albuterol Neb [Duoneb] 3 ml IH [id number] inhsol 03/25/17 [Rx] Ergocalciferol (VITAMIN D2) [Vitamin D2] 50,000 unit PO FR 04/22/17 [History] predniSONE [PredniSONE] 10 mg PO DAILY 04/22/17 [History] Calcium Carbonate [Calcium] 600 mg PO BIDWM 05/27/17 [History] Furosemide [Lasix] 20 mg PO DAILY PRN 05/27/17 [History] Lovastatin 40 mg PO HS 05/27/17 [History] Sertraline [Zoloft] 50 mg PO DAILY 05/27/17 [History] Tiotropium [place] [Spiriva Respimat] 2 puff IH DAILY 05/27/17 [History] Metoprolol XL (24 HR) Succ [Toprol Xl] 25 mg PO DAILY #30 tab.er.24h 06/02/17 [ Rx] predniSONE [PredniSONE] 10 mg PO DAILY #40 tablet 06/02/17 [Rx] Allergies/Adverse Reactions: 3 Allergy/AdvReac Type Severity Reaction Status Date / Time azithromycin [From Zithromax] AdvReac See Verified 05/27/17 18:37 Comments hydrochlorothiazide AdvReac Difficulty Verified 05/27/17 18:37 Breathing ibuprofen [From Motrin] AdvReac Gastrointestinal Verified 05/27/17 18:37 Upset levofloxacin [From Levaquin] AdvReac See Verified 05/27/17 18:37 Comments Certification: Further, I certify that my clinical findings support that this patient is homebound (i.e. absences from home require considerable and taxing effort and are for medical reasons or sikh services or infrequently or short duration when for other reasons) because: Homebound Reason: Patient requires assistance of a person or device to safely leave home, Leaving home requires considerable and taxing effort due to condition Attestation: My signature below is to certify that this patient is under my care and that I, or nurse practitioner, or a physician's benefits assistant working with me, has a face-to -face encounter with this patient.
== END 2017-06-02 14:16 | disposition home health service (06) | DRG 310 ==
LOC: EMEROO 18:06 → 3BNU 18:06
PROVIDERS: ADMIT Internal Medicine; ATTEND Registered Nurse

== ENCOUNTER 2017-06-05 17:25 | Inpatient (IN) ==
[2017-06-05] MEDS ORDERED: Ipratropium/Albuterol Neb 3 ML IH ONE (17:31)
[2017-06-05] MEDS ORDERED: Aspirin 81 MG TAB.CHEW PO ONE (17:31)
[2017-06-05] MEDS ORDERED: predniSONE 20 MG TABLET PO ONE (17:31)
--- NOTE | 2017-06-05 17:39 | Emergency Department Note ---
Disposition Clinical Impression: COPD exacerbation Chest pain Qualifiers: Chest pain type: unspecified Qualified Code(s): R07.9 - Chest pain, unspecified Cellulitis Qualifiers: Site of cellulitis: extremity Site of cellulitis of extremity: lower extremity Laterality: left Qualified Code(s): L03.116 - Cellulitis of left lower limb Disposition: Admitted As Inpatient Condition: Undetermined Time of Disposition: 19:59 Chest Pain HPI - General Chief Complaint: ED Chest Pain Stated Complaint: CP/SOB Time Seen by Provider: 06/05/17 17:31 Source: patient, EMS Mode of arrival: EMS Limitations: no limitations Vital Signs Reviewed: Yes Nursing Notes Reviewed: Yes - History of Present Illness HPI Narrative: 66-year-old male with history of COPD, hypertension, hyperlipidemia, arrives in the emergency department with shortness of breath as well as chest discomfort. The patient states this started at 4 PM this afternoon. Patient wears oxygen when necessary and last wore at roughly noon today, 5 hours ago. The patient states that he was using a breathing treatment and started experiencing some worsening shortness of breath and chest discomfort primarily on the left side. He states that it hurts worse when he takes a very deep breath but also states he is a dull aching entire time. The patient denies any previous history of FL. He states his last stress test was quite some time ago. He denies any other complaints at this time. Severity scale (1-10): 6 Quality: dull - Related Data Home Medications Medication Instructions Recorded Confirmed Mometasone/Formoterol [Dulera 200 2 puff IH BID 01/25/16 05/27/17 Mcg/5 Mcg Inhaler] Acetaminophen [Tylenol] 500 mg PO Q6H PRN 08/26/16 05/27/17 Primidone [Mysoline] 50 mg PO BID 08/26/16 05/27/17 Theophylline Anhydrous [Curt-24] 100 mg PO DAILY 10/04/16 05/27/17 Docusate [Colace] 100 mg PO BID PRN 11/02/16 05/27/17 Roflumilast [Daliresp] 500 mcg PO DAILY 11/02/16 05/27/17 Buspirone HCl [Buspar] 15 mg PO BID 02/28/17 05/27/17 Famotidine [Pepcid] 20 mg PO DAILY 02/28/17 05/27/17 GuaiFENesin ER [Mucinex] 600 mg PO Q12H PRN 02/28/17 05/27/17 Ergocalciferol (VITAMIN D2) 50,000 unit PO FR 04/22/17 05/27/17 [Vitamin D2] predniSONE [PredniSONE] 10 mg PO DAILY 04/22/17 05/27/17 Calcium Carbonate [Calcium] 600 mg PO BIDWM 05/27/17 05/27/17 Furosemide [Lasix] 20 mg PO DAILY PRN 05/27/17 05/27/17 Lovastatin 40 mg PO HS 05/27/17 05/27/17 Sertraline [Zoloft] 50 mg PO DAILY 05/27/17 05/27/17 Tiotropium [place] [Spiriva 2 puff IH DAILY 05/27/17 05/27/17 Respimat] Previous Rx's Medication Instructions Recorded Aspirin 81 mg PO DAILY #30 tab.chew 05/20/16 Ipratropium/Albuterol Neb [Duoneb] 3 ml IH [id number] inhsol 03/25/17 Metoprolol XL (24 HR) Succ [Toprol 25 mg PO DAILY #30 tab.er.24h 06/02/17 Xl] predniSONE [PredniSONE] 10 mg PO DAILY #40 tablet 06/02/17 Allergies Allergy/AdvReac Type Severity Reaction Status Date / Time azithromycin [From Zithromax] AdvReac See Verified 05/27/17 18:37 Comments hydrochlorothiazide AdvReac Difficulty Verified 05/27/17 18:37 Breathing ibuprofen [From Motrin] AdvReac Gastrointestinal Verified 05/27/17 18:37 Upset levofloxacin [From Levaquin] AdvReac See Verified 05/27/17 18:37 Comments All systems ED: reviewed and negative except as stated. Constitutional: Denies: fever, chills, weakness ENT ED: Denies: congestion Cardiovascular: Reports: chest pain, dyspnea on exertion. Denies: orthopnea, edema, syncope Respiratory: Reports: dyspnea, wheezes. Denies: cough, hemoptysis, stridor, sputum production Gastrointestinal: Denies: abdominal pain, nausea Genitourinary: Denies: urgency, dysuria Musculoskeletal: Denies: back pain, neck pain Integumentary: Denies: rash Neurological: Denies: weakness, numbness Chest Pain PMH - Past Medical History Medical history: Reports: COPD, CVA, hyperlipidemia, hypertension Surgical history: Reports: non-contributory, other Psychiatric history: Reports: anxiety, depression Prior Cardiac Testing/Procedures: Stress Test - Social History Smoking Status: Current some day smoker Alcohol use: Reports: none Drug use: Reports: none Physical Exam - General Limitations: no limitations General appearance: alert, in distress (Mild respiratory) - Head Head exam: atraumatic, normocephalic, normal inspection - Eye Eye exam: Present: normal appearance, PERRL, EOMI - ENT ENT exam: normal exam, normal oropharynx, mucous membranes moist - Neck Neck exam: Present: normal inspection, full ROM, trachea midline - Chest Chest inspection: Present: normal inspection, symmetric chest wall rise - Respiratory Respiratory exam: Present: wheezes (And poor air movement bilaterally.) - Cardiovascular Cardiovascular exam: Present: regular rate, normal rhythm, normal heart sounds - Abdominal Exam Abdominal exam: Present: soft, Non-Tender. Absent: tenderness, distention, guarding, rebound, rigidity - Extremities Exam Extremities exam: Present: full ROM, tenderness. Absent: pedal edema - Expanded Lower Extremity Exam Lower leg exam: Present: tenderness, erythema (Bilaterally worse on the left with previous surgical wounds that are well-healing.) Course Vital Signs Temperature 97.5 F L 06/05/17 17:28 Pulse Rate 54 06/05/17 17:28 Respiratory Rate 20 06/05/17 17:28 Blood Pressure 152/81 06/05/17 17:28 O2 Sat by Pulse Oximetry 97 06/05/17 17:28 Temperature 97.5 F L 06/05/17 17:28 Pulse Rate 87 06/05/17 17:53 Respiratory Rate 18 06/05/17 17:53 Blood Pressure 143/85 06/05/17 17:53 O2 Sat by Pulse Oximetry 96 06/05/17 17:53 Oxygen Delivery Oxygen Delivery Nasal Cannula Chest Pain - [facility] Narrative Medical decision making narrative: Workup in the emergency department demonstrates findings consistent with cellulitis of the left lower extremity with some mild erythema of the right lower extremity. Patient has a history of cellulitis in the past. In addition the patient did see have some relief with his DuoNeb as well as steroids. His chest pain is now subsided. Given the patient's medical history we will admit the patient to the hospital to trend troponins as well as administer medications as necessary. In addition the patient will get IV antibiotics for his cellulitis. Accepted by Dr. Edgar. - Medical Records Medical records reviewed: Yes I reviewed the patient's medical records. - Lab Data Lab results reviewed: Yes I reviewed the patient's lab results. Result diagrams: 06/05/17 18:11 06/05/17 18:11 Lab Results 06/05/17 06/05/17 06/05/17 Range/Units 18:11 18:11 18:11 WBC 7.6 (4.3-11.1) K/mcL RBC 4.70 (4.19-5.50) M/mcL Hgb 14.7 D (12.9-16.9) g/dL Hct 46.1 (37.5-50.1) % MCV 98.1 (83.0-100.0) fL MCH 31.3 (28.0-33.3) pg MCHC 31.9 (31.6-35.5) g/dL RDW 13.9 (11.5-14.5) % Plt Count 229 (140-400) K/mcL MPV 9.9 (9.4-12.4) fL Immature Gran % 0.3 (0-4) % Seg Neutrophils % 71.2 % Lymphocytes % 14.9 % Monocytes % 12.0 % Eosinophils % 1.1 % Basophils % 0.5 % Neutrophils # 5.4 (1.6-8.9) K/mcL Lymphocytes # 1.1 (0.6-4.6) K/mcL Monocytes # 0.9 (0.0-1.3) K/mcL Eosinophils # 0.1 (0.0-0.6) K/mcL Basophils # 0.0 (0.0-0.2) K/mcL PT 11.5 (9.4-12.1) Seconds INR 1.1 APTT 25.9 L (26.0-36.0) Seconds Sodium 141 (136-145) mEq/L Potassium 3.6 (3.5-5.1) mEq/L Chloride 102 (98-107) mEq/L Carbon Dioxide 32 H (23-29) mEq/L BUN 17 (8-23) mg/dL Creatinine 1.04 (0.70-1.30) mg/dL Est GFR ( Amer) > 60 (> 60) Est GFR (Non-Af Amer) > 60 (> 60) BUN/Creatinine Ratio 16 (6-26) Glucose 98 (70-105) mg/dL Calculated Osmolality 294 (280-300) Calcium 8.9 (8.6-10.3) mg/dL Troponin I < 0.03 (< 0.04) ng/mL - Radiology Data Radiology results reviewed: Yes I reviewed the patient's radiology results. Chest X-Ray 06/05/17 17:31 IMPRESSION: No acute abnormality detected. D/ / Brad Olvera MD / Brad Olvera MD Interpreting Provider: Brad Olvera MD - EKG Data EKG attestation: Yes I reviewed and interpreted this EKG. EKG results narrative: Heart rate 53 bpm. Sinus bradycardia. No ST depression, mild ST elevation that appears similar to previous EKG on 06/06/2017. No acute changes noted. Attestation Statement - Attestation Attestation: I examined this patient and my medical decision-making was reviewed with the Resident Physician, Dr. Hutchins. I agree with the documented findings, disposition and treatment plan as described except to the extent set forth below. This 66-year-old white male with a history of COPD oxygen requiring, hyperlipidemia hypertension who was just discharged from the hospital with an acute exacerbation of COPD approximately 3 days ago. She comes in with increased oxygen requirements increased work of breathing, diffuse wheezing in the bases and complaints of shortness of breath as well as left-sided chest tightness. Patient denies any change with exertion, no prior history of FL. Patient did have cycled enzymes 3 days ago during his admission which were all within normal limits. Patient also complains of some pain increased warmth to touch and redness of the left lower extremity of his lower leg and foot. He has some old scarring from prior I&D that was done remotely that is now well healed on the lower anterior surface of the leg but there is no new wounds abscess or skin breakdown that I see as a source. Patient's hemodynamically stable on arrival. I agree with patient's physical exam findings as documented. Vital signs stable on arrival. Patient's EKG was sinus rhythm with no acute ischemia. Patient placed on threat monitoring analyst continuous pulse ox breathing treatments and steroids were initiated as well as aspirin. No acute ischemia on initial EKG. Patient did get some improvement clinically with breathing treatments and relief of his chest pain. Chest x-ray shows no pneumonia. Patient was started on antibiotics for his cellulitis. Patient will be admitted for further evaluation and management, case discussed with hospitalist.
[2017-06-05 18:55] LABS: Basophils % 0.5 %; Eosinophils # 0.1 K/mcL (0.0-0.6); Eosinophils % 1.1 %; Hematocrit 46.1 % (37.5-50.1); Immature Granulocytes % 0.3 % (0-4); Lymphocytes # 1.1 K/mcL (0.6-4.6); Lymphocytes % 14.9 %; Mean Corpuscular HGB Conc 31.9 g/dL (31.6-35.5); Mean Corpuscular Hemoglobin 31.3 pg (28.0-33.3); Mean Corpuscular Volume 98.1 fL (83.0-100.0); Mean Platelet Volume 9.9 fL (9.4-12.4); Monocytes # 0.9 K/mcL (0.0-1.3); Neutrophils # 5.4 K/mcL (1.6-8.9); Platelet Count 229 K/mcL (140-400); Red Cell Distribution Width 13.9 % (11.5-14.5); Segmented Neutrophils % 71.2 %
[2017-06-05 18:56] LABS: Hemoglobin 14.7 g/dL (12.9-16.9)
[2017-06-05 19:02] LABS: INR 1.1; Prothrombin Time 11.5 Seconds (9.4-12.1)
[2017-06-05] MEDS ORDERED: cefTRIAXone 1,000 MG in Water for inj. (sterile) 20 ML 10 ML IVP ONE (19:04)
[2017-06-05 19:05] LABS: Activated Partial Thrombo Time 25.9 Seconds (26.0-36.0)
[2017-06-05 19:15] LABS: BUN/Creatinine Ratio 16 (6-26); Blood Urea Nitrogen 17 mg/dL (8-23); Calcium 8.9 mg/dL (8.6-10.3); Carbon Dioxide 32 mEq/L (23-29); Chloride 102 mEq/L (98-107); Glucose 98 mg/dL (70-105); Osmolality,Calculated 294 (280-300); Potassium 3.6 mEq/L (3.5-5.1); Sodium 141 mEq/L (136-145); eGFR For African Americans > 60 (> 60); eGFR For Non-African Americans > 60 (> 60)
[2017-06-05 19:16] LABS: Troponin I < 0.03 ng/mL (< 0.04)
[2017-06-05] MEDS ORDERED: Acetaminophen 325 MG TABLET PO PRN (22:22)
[2017-06-05] MEDS ORDERED: Naloxone 0.4 MG/ML INJ IVP PRN (22:22)
[2017-06-05] MEDS ORDERED: Ipratropium/Albuterol Neb 3 ML IH PRN (22:27)
--- NOTE | 2017-06-05 23:38 | Internal Med History&Physical ---
Date of Encounter: 06/05/17 Time of Encounter: 22:30 Assessment and Plan (1) COPD exacerbation Current visit: Yes Status: Acute Patient has a history of COPD. Presented with shortness of breath with wheezing. Chest x-ray negative. Consider COPD exacerbation. - Place patient on steroid and bronchodilator - Oxygen supportive treatment (2) Cellulitis Current visit: Yes Status: Acute Patient has skin redness. Consider cellulitis. Place patient on Vanco and Rocephin IV. May switch to by mouth antibiotic after symptoms has improved. Qualifiers: Site of cellulitis: extremity Site of cellulitis of extremity: lower extremity Laterality: left Qualified Code(s): L03.116 - Cellulitis of left lower limb (3) Chest pain Current visit: Yes Status: Acute Patient has bilateral chest wall tenderness. Chest pain has improved after nebulizer treatment. Patient denies nausea vomiting or diaphoresis. Less likely heart ischemia. However, we will close monitor patient and rule out ACS. Patient had stress test 1 year ago, which is negative per patient. - Continuous cardiac monitoring - Track 3 sets of troponin Qualifiers: Chest pain type: chest pain on breathing Qualified Code(s): R07.1 - Chest pain on breathing; R07.81 - Pleurodynia (4) DVT prophylaxis Current visit: No Status: Acute Heparin subcutaneously Internal Medicine - H&P: HPI Chief complaint: Shortness of breath Admitted From: Home Plans for Post Hospital Care: Home History of present illness: Mr. Amor is a 66 year old male with history of COPD, hypertension, presented to ER for shortness of breath and chest pain. Patient said he started having shortness of breath since 4 PM this afternoon. Patient also complaining of chest pain on bilateral chest, worsening with deep breathing. No radiation. Patient denies nausea or diaphoresis. Patient has no cough, no fever. In emergency room, he was found wheezing. He was treated with steroid and nebulizer, his shortness of breath has significantly improved. His chest pain get down from previous 3-4 out of 10 to 0.5 out of 10. Patient also complaining of lower extremity skin redness bilaterally, left more than right. Patient said he has similar problem before, diagnosed as cellulitis and improved after by mouth antibiotics. Patient was admitted for COPD exacerbation , chest pain rule out ACS, and cellulitis. Past Med Surg Social Fam HX - Past Medical History Medical history: COPD, CVA, hyperlipidemia, hypertension Psychiatric history: anxiety, depression - Past Surgical History Surgical History: non-contributory, other - Social History Smoking Status: Current some day smoker Smokeless Tobacco Status: No Alcohol use: none Drug use: none - Family History Brother Family Member Ethnicity: Non- Living Status: Mother Adopted: No Family Member Ethnicity: Non- Living Status: Hx Family Cardiac Disorders: No Hx Family Respiratory Disorders: No Hx Family Cancer: Yes (lung) Hx Family GI Disorders: No Hx Family Endocrine Disorder: No Hx Family Neuromuscular Disorders: No Hx Family Neurologic Disorders: No Hx Family HEENT Disorders: No Hx Family Autoimmune Disorders: No Father Adopted: No Family Member Ethnicity: Non- Living Status: Hx Family Cardiac Disorders: No Hx Family Respiratory Disorders: Yes (emphysemza) Hx Family Cancer: No Hx Family GI Disorders: No Hx Family Endocrine Disorder: No Hx Family Neuromuscular Disorders: No Hx Family Neurologic Disorders: No Hx Family HEENT Disorders: No Hx Family Autoimmune Disorders: No Internal Medicine - H&P: Meds Mometasone/Formoterol [Dulera 200 Mcg/5 Mcg Inhaler] 2 puff IH BID 01/25/16 [ History] Aspirin 81 mg PO DAILY #30 tab.chew 05/20/16 [Rx] Acetaminophen [Tylenol] 500 mg PO Q6H PRN 08/26/16 [History] Primidone [Mysoline] 50 mg PO BID 08/26/16 [History] Theophylline Anhydrous [Curt-24] 100 mg PO DAILY 10/04/16 [History] Docusate [Colace] 100 mg PO BID PRN 11/02/16 [History] Roflumilast [Daliresp] 500 mcg PO DAILY 11/02/16 [History] Buspirone HCl [Buspar] 15 mg PO BID 02/28/17 [History] Famotidine [Pepcid] 20 mg PO DAILY 02/28/17 [History] GuaiFENesin ER [Mucinex] 600 mg PO Q12H PRN 02/28/17 [History] Ipratropium/Albuterol Neb [Duoneb] 3 ml IH [id number] inhsol 03/25/17 [Rx] Ergocalciferol (VITAMIN D2) [Vitamin D2] 50,000 unit PO FR 04/22/17 [History] predniSONE [PredniSONE] 10 mg PO DAILY 04/22/17 [History] Calcium Carbonate [Calcium] 600 mg PO BIDWM 05/27/17 [History] Furosemide [Lasix] 20 mg PO DAILY PRN 05/27/17 [History] Lovastatin 40 mg PO HS 05/27/17 [History] Sertraline [Zoloft] 50 mg PO DAILY 05/27/17 [History] Tiotropium [place] [Spiriva Respimat] 2 puff IH DAILY 05/27/17 [History] Metoprolol XL (24 HR) Succ [Toprol Xl] 25 mg PO DAILY #30 tab.er.24h 06/02/17 [ Rx] predniSONE [PredniSONE] 10 mg PO DAILY #40 tablet 06/02/17 [Rx] 3 Allergy/AdvReac Type Severity Reaction Status Date / Time azithromycin [From Zithromax] AdvReac See Verified 05/27/17 18:37 Comments hydrochlorothiazide AdvReac Difficulty Verified 05/27/17 18:37 Breathing ibuprofen [From Motrin] AdvReac Gastrointestinal Verified 05/27/17 18:37 Upset levofloxacin [From Levaquin] AdvReac See Verified 05/27/17 18:37 Comments All Systems PM: A 10-system review of systems was performed and is negative for pertinent findings except as documented above in the HPI. - Constitutional Vitals: Temp Pulse Resp BP Pulse Ox 98.0 F 56 18 158/83 97 06/05/17 21:06 06/05/17 21:06 06/05/17 21:06 06/05/17 21:06 06/05/17 21:06 General appearance: Present: A&O X 3, no acute distress, answers questions appropriately - Head Head exam: Present: atraumatic, normocephalic - Eye Eye exam: Present: PERRL, conjuntiva pink, sclera anicteric Pupils: Present: PERRL - Neck Neck exam general surgery: Present: supple, trachea midline. Absent: lymphadenopathy - Respiratory Respiratory exam: Present: chest wall tenderness (Bilateral on the lateral chest wall), CTAB. Absent: accessory muscle use, rales, rhonchi, wheezes Additional comments: Coarse breath sounds bilaterally, no wheezing at this point - Cardiovascular Cardiovascular exam: Present: RRR, +S1, +S2. Absent: diastolic murmur, gallop, rubs, systolic murmur - GI/Abdominal GI/Abdominal exam: Present: normal bowel sounds, soft, no peritoneal signs. Absent: distended, tenderness - Extremities Exam Extremities exam: Present: warm, radial pulses palpable and symmetrical. Absent : calf tenderness, cyanotic, pedal edema Additional comments: Skin redness on bilateral lower extremity. No significant edema. No calf tenderness - Neurological Exam Neurological exam: Present: CN II-XII intact, oriented X3, no focal deficits. Absent: pronater drift, facial droop, speech deficit - Skin Skin exam: Present: dry, intact Internal Med - H&P Results - Labs CBC & Chem 7: 06/05/17 18:11 06/05/17 18:11 - EKG Data -: EKG Interpreted by Myself EKG shows normal: sinus rhythm Rate: bradycardia
[2017-06-06] MEDS ORDERED: Melatonin 3 MG TABLET PO ONE (02:06)
[2017-06-06] MEDS: Ipratropium/Albuterol Neb 3 ML IH SCH ×4 (03:43→21:59)
[2017-06-06] MEDS: *HR* Heparin 5,000 UNIT/ML VIAL SQ SCH ×2 (05:07→16:30)
[2017-06-06 05:35] LABS: Hematocrit 39.8 % (37.5-50.1); Immature Granulocytes % 0.3 % (0-4); Lymphocytes # 0.4 K/mcL (0.6-4.6); Lymphocytes % 5.9 %; Mean Corpuscular HGB Conc 31.9 g/dL (31.6-35.5); Mean Corpuscular Hemoglobin 30.7 pg (28.0-33.3); Mean Corpuscular Volume 96.1 fL (83.0-100.0); Mean Platelet Volume 10.1 fL (9.4-12.4); Monocytes # 0.4 K/mcL (0.0-1.3); Monocytes % 6.8 %; Neutrophils # 5.3 K/mcL (1.6-8.9); Platelet Count 213 K/mcL (140-400); Red Blood Count 4.14 M/mcL (4.19-5.50); Red Cell Distribution Width 13.8 % (11.5-14.5)
[2017-06-06 05:36] LABS: Hemoglobin 12.7 g/dL (12.9-16.9)
[2017-06-06 05:49] LABS: Potassium 4.5 mEq/L (3.5-5.1)
[2017-06-06 06:32] LABS: BUN/Creatinine Ratio 19 (6-26); Blood Urea Nitrogen 19 mg/dL (8-23); Calcium 8.5 mg/dL (8.6-10.3); Carbon Dioxide 27 mEq/L (23-29); Chloride 105 mEq/L (98-107); Glucose 136 mg/dL (70-105); Osmolality,Calculated 290 (280-300); Sodium 138 mEq/L (136-145); eGFR For African Americans > 60 (> 60); eGFR For Non-African Americans > 60 (> 60)
[2017-06-06] MEDS: Metoprolol XL (24 HR) Succ 25 MG TAB.ER.24H PO SCH (08:50)
[2017-06-06] MEDS: Aspirin 81 MG TAB.CHEW PO SCH (08:50)
[2017-06-06] MEDS: predniSONE 20 MG TABLET PO SCH (08:50)
[2017-06-06] MEDS: cefTRIAXone 1,000 MG in Water for inj. (sterile) 20 ML 10 ML IVP SCH (08:52)
--- NOTE | 2017-06-06 09:15 | Internal Med Progress Note ---
Date of Encounter: 06/06/17 Time of Encounter: 09:12 - Assessment and plan (1) COPD exacerbation Current Visit: Yes Status: Acute Assessment and plan: 1 patient has a history of COPD he originally presented to the ER with shortness of breath and wheezing. His chest x-ray was negative. Presently he does not have any wheezes he does not appear to be respiratory distress we will continue with his steroids as well as bronchodilators Oxygen as needed (2) Cellulitis Current Visit: Yes Status: Acute Assessment and plan: 1 lower extremities skin with redness, considered cellulitis patient was placed on vancomycin and Rocephin. We will switch to oral antibiotics after symptoms have improved. Qualifiers: Site of cellulitis: extremity Site of cellulitis of extremity: lower extremity Laterality: left Qualified Code(s): L03.116 - Cellulitis of left lower limb (3) Chest pain Current Visit: Yes Status: Acute Assessment and plan: 1 presently he has no chest pain he originally presented with chest pain on the left side during inspiration. Troponins are negative No EKG changes I do not suspect this is cardiac more likely pleuritic Qualifiers: Chest pain type: chest pain on breathing Qualified Code(s): R07.1 - Chest pain on breathing; R07.81 - Pleurodynia (4) DVT prophylaxis Current Visit: No Status: Acute Assessment and plan: Heparin subcutaneous - Subjective Interval history: Patient seen and examine at bedside. Patient denies any pain states breathing much better. Presently feel that he is breathing much better. - Constitutional Vitals: Temp Pulse Resp BP Pulse Ox 98.1 F 60 20 138/78 98 06/06/17 07:26 06/06/17 07:26 06/06/17 07:26 06/06/17 07:26 06/06/17 07:26 General appearance: Present: A&O X 3, no acute distress, answers questions appropriately - Head Head exam: Present: atraumatic, normocephalic - Eye Eye exam: Present: PERRL, conjuntiva pink, sclera anicteric Pupils: Present: PERRL - Neck Neck exam general surgery: Present: supple, trachea midline. Absent: lymphadenopathy - Respiratory Respiratory exam: Present: CTAB. Absent: accessory muscle use, rales, rhonchi, wheezes - Cardiovascular Cardiovascular exam: Present: RRR, +S1, +S2. Absent: diastolic murmur, gallop, rubs, systolic murmur - GI/Abdominal GI/Abdominal exam: Present: normal bowel sounds, soft, no peritoneal signs. Absent: distended, tenderness - Extremities Exam Extremities exam: Present: warm, radial pulses palpable and symmetrical. Absent : calf tenderness, cyanotic, pedal edema - Neurological Exam Neurological exam: Present: CN II-XII intact, oriented X3, no focal deficits. Absent: pronater drift, facial droop, speech deficit - Skin Skin exam: Present: dry, intact Internal Medicine: Result - Labs CBC & Chem 7: 06/06/17 05:02 06/06/17 05:02 Labs: Short CBC 06/06/17 Range/Units 05:02 WBC 6.1 (4.3-11.1) K/mcL Hgb 12.7 L D (12.9-16.9) g/dL Hct 39.8 (37.5-50.1) % Plt Count 213 (140-400) K/mcL Neutrophils # 5.3 (1.6-8.9) K/mcL BMP 06/06/17 05:02 Sodium 138 Potassium 4.5 Chloride 105 Carbon Dioxide 27 BUN 19 Creatinine 0.98 Glucose 136 H Calcium 8.5 L Cardiac Enzymes 06/05/17 06/06/17 Range/Units 23:03 05:02 Troponin I < 0.03 < 0.03 (< 0.04) ng/mL - ABG Interpretation ABG results: PT/INR, D-dimer PT 11.5 Seconds (9.4-12.1) 06/05/17 18:11 Consult Discharge Plan - Plan Referrals: Talita Coffey, NEUROLOGY HOSPITALIST [Primary Care Provider] -
[2017-06-07] MEDS: Ipratropium/Albuterol Neb 3 ML IH SCH ×3 (03:43→16:02)
[2017-06-07 05:26] LABS: BUN/Creatinine Ratio 20 (6-26); Blood Urea Nitrogen 21 mg/dL (8-23); Calcium 8.3 mg/dL (8.6-10.3); Carbon Dioxide 29 mEq/L (23-29); Chloride 107 mEq/L (98-107); Glucose 99 mg/dL (70-105); Osmolality,Calculated 295 (280-300); Potassium 3.9 mEq/L (3.5-5.1); Sodium 141 mEq/L (136-145); eGFR For African Americans > 60 (> 60); eGFR For Non-African Americans > 60 (> 60)
[2017-06-07 05:30] LABS: Basophils % 0.3 %; Eosinophils % 0.4 %; Hematocrit 36.7 % (37.5-50.1); Hemoglobin 11.8 g/dL (12.9-16.9); Immature Granulocytes % 0.4 % (0-4); Lymphocytes # 0.8 K/mcL (0.6-4.6); Lymphocytes % 10.8 %; Mean Corpuscular HGB Conc 32.2 g/dL (31.6-35.5); Mean Corpuscular Hemoglobin 31.4 pg (28.0-33.3); Mean Corpuscular Volume 97.6 fL (83.0-100.0); Mean Platelet Volume 10.2 fL (9.4-12.4); Monocytes # 0.9 K/mcL (0.0-1.3); Monocytes % 12.4 %; Neutrophils # 5.3 K/mcL (1.6-8.9); Platelet Count 192 K/mcL (140-400); Red Blood Count 3.76 M/mcL (4.19-5.50); Red Cell Distribution Width 13.9 % (11.5-14.5); Segmented Neutrophils % 75.7 %
[2017-06-07] MEDS: *HR* Heparin 5,000 UNIT/ML VIAL SQ SCH (06:27)
[2017-06-07] MEDS: cefTRIAXone 1,000 MG in Water for inj. (sterile) 20 ML 10 ML IVP SCH (08:31)
[2017-06-07] MEDS: Aspirin 81 MG TAB.CHEW PO SCH (08:31)
[2017-06-07] MEDS: Metoprolol XL (24 HR) Succ 25 MG TAB.ER.24H PO SCH (08:31)
[2017-06-07] MEDS: predniSONE 20 MG TABLET PO SCH (08:31)
[2017-06-07 15:16] VITALS: BP 149/87
--- NOTE | 2017-06-07 15:20 | Discharge Summary ---
- NOTES TO OUTPATIENT PROVIDER Notes to Outpatient Provider: PT recommending home PT. Date of Encounter: 06/07/17 Time of Encounter: 15:15 - Discharge Diagnosis (1) COPD exacerbation Priority: Primary Status: Acute Comments: Patient to resume his duo nebs and rhonchi dilator. He will also complete his previous prescribed course of steroids. His pulse ox has been stable on O2 at 2-3 L Minimal wheezing and no bronchospasm on exam (2) Cellulitis Priority: Primary Status: Acute Comments: Torey on left lower extremity without redness warmth or edema. No drainage noted site is healing well. We will discharge on a course of oral antibiotics. Patient is afebrile and white count is within normal limits Qualifiers: Site of cellulitis: extremity Site of cellulitis of extremity: lower extremity Laterality: left Qualified Code(s): L03.116 - Cellulitis of left lower limb (3) Chest pain Priority: Primary Status: Acute Comments: Patient had no chest pain on exam Qualifiers: Chest pain type: chest pain on breathing Qualified Code(s): R07.1 - Chest pain on breathing; R07.81 - Pleurodynia (4) Generalized weakness Priority: Primary Status: Acute Comments: The sacral therapy evaluated the patient and felt that he could get around his apartment without difficulty, they did recommend home health which has been ordered. The patient also told the physical therapist that he presents to the hospital because his apartment is in such a mass and he has had area on agency clean it multiple times. Hospital course: Mr. Amor is a 66 year old male with frequent admissions. Discussed that he has met discharge criteria. He was not happy about his discharge he felt he needed to stay a few more days. Explained that his cellulitis has resolved and his breathing is back to baseline. He then stated that he was not able to walk. Physical therapy evaluated the patient and recommended home health with physical therapy. The patient then agreed to be discharged. Please refer to the details under the assessment and plan for other information from this admission Discharge discussed with: patient, nurse, social work, other - Time Spent with Patient Total time spent providing and/or coordinating discharge services: Less than 30 minutes - Discharge Medications Prescriptions: Amoxicillin/Clavulanate [Augmentin] 875 mg PO BIDWM #14 tablet Home Medications: Mometasone/Formoterol [Dulera 200 Mcg/5 Mcg Inhaler] 2 puff IH BID 01/25/16 [ History] Aspirin 81 mg PO DAILY #30 tab.chew 05/20/16 [Rx] Acetaminophen [Tylenol] 500 mg PO Q6H PRN 08/26/16 [History] Primidone [Mysoline] 50 mg PO BID 08/26/16 [History] Theophylline Anhydrous [Curt-24] 100 mg PO DAILY 10/04/16 [History] Docusate [Colace] 100 mg PO BID PRN 11/02/16 [History] Roflumilast [Daliresp] 500 mcg PO DAILY 11/02/16 [History] Buspirone HCl [Buspar] 15 mg PO BID 02/28/17 [History] Famotidine [Pepcid] 20 mg PO DAILY 02/28/17 [History] GuaiFENesin ER [Mucinex] 600 mg PO Q12H PRN 02/28/17 [History] Ipratropium/Albuterol Neb [Duoneb] 3 ml IH [id number] inhsol 03/25/17 [Rx] Ergocalciferol (VITAMIN D2) [Vitamin D2] 50,000 unit PO FR 04/22/17 [History] Calcium Carbonate [Calcium] 600 mg PO BIDWM 05/27/17 [History] Furosemide [Lasix] 20 mg PO DAILY PRN 05/27/17 [History] Lovastatin 40 mg PO HS 05/27/17 [History] Sertraline [Zoloft] 50 mg PO DAILY 05/27/17 [History] Tiotropium [place] [Spiriva Respimat] 2 puff IH DAILY 05/27/17 [History] predniSONE [PredniSONE] 10 mg PO DAILY #40 tablet 06/02/17 [Rx] Metoprolol [Lopressor] 25 mg PO BID 06/06/17 [History] Amoxicillin/Clavulanate [Augmentin] 875 mg PO BIDWM #14 tablet 06/07/17 [Rx] Allergies/Adverse Reactions: 3 Allergy/AdvReac Type Severity Reaction Status Date / Time azithromycin [From Zithromax] AdvReac See Verified 05/27/17 18:37 Comments hydrochlorothiazide AdvReac Difficulty Verified 05/27/17 18:37 Breathing ibuprofen [From Motrin] AdvReac Gastrointestinal Verified 05/27/17 18:37 Upset levofloxacin [From Levaquin] AdvReac See Verified 05/27/17 18:37 Comments Date of admission: 06/05/17 22:22 Primary care physician: Talita Coffey CNP Consults: 06/07/17 12:57 Consult to Physical Therapy [CONS] Routine Comment: Evaluate, develop and implement POC Reason for Consult: Evaluation, patient states he can not walk Does patient have active BEDREST order?: No Is patient medically & hemodynamically stable?: Yes Consult to Physical Therapy [CONS] Stat Comment: Evaluate, develop and implement POC Reason for Consult: patient needs seen for discharged Does patient have active BEDREST order?: No Is patient medically & hemodynamically stable?: Yes Discharging clinician: Hailey Villegas Anticipated date of discharge: 06/07/17 - Constitutional Vitals: Temp Pulse Resp BP Pulse Ox 98.1 F 56 16 154/86 97 06/07/17 10:36 06/07/17 10:36 06/07/17 10:41 06/07/17 10:36 06/07/17 10:41 General appearance: Present: cooperative, A&O X 3, pleasant, no acute distress, answers questions appropriately - Head Head exam: Present: atraumatic, normocephalic - Eye Eye exam: Present: PERRL, conjuntiva pink, sclera anicteric Pupils: Present: PERRL - Neck Neck exam general surgery: Present: supple, trachea midline. Absent: lymphadenopathy - Respiratory Respiratory exam: Present: CTAB. Absent: accessory muscle use, chest wall tenderness, rales, respiratory distress, rhonchi, wheezes - Cardiovascular Cardiovascular exam: Present: RRR, +S1, +S2. Absent: diastolic murmur, gallop, rubs, systolic murmur - GI/Abdominal GI/Abdominal exam: Present: normal bowel sounds, soft, no peritoneal signs. Absent: distended, tenderness - Extremities Exam Extremities exam: Present: warm, radial pulses palpable and symmetrical. Absent : calf tenderness, cyanotic, pedal edema - Neurological Exam Neurological exam: Present: alert, CN II-XII intact, oriented X3, no focal deficits. Absent: pronater drift, facial droop, speech deficit - Skin Skin exam: Present: dry, intact, warm Additional comments: Wound on left lower extremity is healing well without any drainage, redness, heat, warmth. Patient states the spot is char filter tank tender head. He is concerned about swelling but no swelling was noted. - Patient Status Disposition: Home Health Service Condition: Undetermined Functional capacity at discharge: independent ambulation Overall status at discharge: patient is progressing back to baseline - Discharge Instructions Follow Up With: Talita Coffey CNP [Primary Care Provider] - 06/10/17 11:00 am - Diet and Activity Activity: as per physical therapy, resume usual activities as tolerated Diet: advance to your usual diet
--- NOTE | 2017-06-07 15:34 | Physician Discharge Referral ---
Home Health/Hosp Referral Info Transfer to: Home Health ([facility]) Attending Provider: armida - Diagnosis (1) COPD exacerbation Priority: Primary Status: Acute (2) Cellulitis Priority: Primary Status: Acute (3) Chest pain Priority: Primary Status: Acute - Respiratory Orders Oxygen / L per min (02 as previously ordered, patient adjusts with his own pulse ox) Smoking Cessation: Smoking cessation has been advised. For more information, call the [place] Tobacco Quit Line at 0-960-RZUH-NOW. - Diet/Nutrition Diet/Nutrition Orders: No Added Salt (TAL), Cardiac - Activity Activity Orders: Up ad jose - Services Needed Following services are medically necessary services: Nursing, Home Health Aide, Physical Therapy, Med Social Work - Transfer Medications Prescriptions: Amoxicillin/Clavulanate [Augmentin] 875 mg PO BIDWM #14 tablet Home Medications: Mometasone/Formoterol [Dulera 200 Mcg/5 Mcg Inhaler] 2 puff IH BID 01/25/16 [ History] Aspirin 81 mg PO DAILY #30 tab.chew 05/20/16 [Rx] Acetaminophen [Tylenol] 500 mg PO Q6H PRN 08/26/16 [History] Primidone [Mysoline] 50 mg PO BID 08/26/16 [History] Theophylline Anhydrous [Curt-24] 100 mg PO DAILY 10/04/16 [History] Docusate [Colace] 100 mg PO BID PRN 11/02/16 [History] Roflumilast [Daliresp] 500 mcg PO DAILY 11/02/16 [History] Buspirone HCl [Buspar] 15 mg PO BID 02/28/17 [History] Famotidine [Pepcid] 20 mg PO DAILY 02/28/17 [History] GuaiFENesin ER [Mucinex] 600 mg PO Q12H PRN 02/28/17 [History] Ipratropium/Albuterol Neb [Duoneb] 3 ml IH [id number] inhsol 03/25/17 [Rx] Ergocalciferol (VITAMIN D2) [Vitamin D2] 50,000 unit PO FR 04/22/17 [History] Calcium Carbonate [Calcium] 600 mg PO BIDWM 05/27/17 [History] Furosemide [Lasix] 20 mg PO DAILY PRN 05/27/17 [History] Lovastatin 40 mg PO HS 05/27/17 [History] Sertraline [Zoloft] 50 mg PO DAILY 05/27/17 [History] Tiotropium [place] [Spiriva Respimat] 2 puff IH DAILY 05/27/17 [History] predniSONE [PredniSONE] 10 mg PO DAILY #40 tablet 06/02/17 [Rx] Metoprolol [Lopressor] 25 mg PO BID 06/06/17 [History] Amoxicillin/Clavulanate [Augmentin] 875 mg PO BIDWM #14 tablet 06/07/17 [Rx] Allergies/Adverse Reactions: 3 Allergy/AdvReac Type Severity Reaction Status Date / Time azithromycin [From Zithromax] AdvReac See Verified 05/27/17 18:37 Comments hydrochlorothiazide AdvReac Difficulty Verified 05/27/17 18:37 Breathing ibuprofen [From Motrin] AdvReac Gastrointestinal Verified 05/27/17 18:37 Upset levofloxacin [From Levaquin] AdvReac See Verified 05/27/17 18:37 Comments Certification: Further, I certify that my clinical findings support that this patient is homebound (i.e. absences from home require considerable and taxing effort and are for medical reasons or scientology services or infrequently or short duration when for other reasons) because: Homebound Reason: Patient requires assistance of a person or device to safely leave home Attestation: My signature below is to certify that this patient is under my care and that I, or nurse practitioner, or a physician's assistant counsel working with me, has a face-to -face encounter with this patient.
[2017-06-07] MEDS ORDERED: Aminoglycoside Consult 1 EACH MC ONE (16:41)
--- NOTE | 2017-06-07 23:53 | Electrocardiograph Report ---
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
== END 2017-06-07 16:42 | disposition home health service (06) | DRG 191 ==
LOC: 3BNU 17:25 → EMEROO 17:25 → 3BNU 20:36
PROVIDERS: ADMIT Internal Medicine; ATTEND Registered Nurse

== ENCOUNTER 2017-09-02 10:06 | Inpatient (IN) ==
--- NOTE | 2017-09-02 10:14 | Emergency Department Note ---
Disposition Clinical Impression: Pleuritic chest pain Pneumonia Qualifiers: Pneumonia type: due to unspecified organism Laterality: right Lung location: lower lobe of lung Qualified Code(s): J18.1 - Lobar pneumonia, unspecified organism Disposition: Admitted As Inpatient Condition: Undetermined General Adult HPI - General Chief complaint: ED Chest Pain Stated complaint: Chest Pain Time Seen by Provider: 09/02/17 10:09 Source: EMS Limitations: no limitations - History of Present Illness Pain Scale: 7 - Related Data Home Medications Medication Instructions Recorded Confirmed Acetaminophen [Tylenol] 500 mg PO Q6H PRN 08/26/16 09/02/17 Primidone [Mysoline] 50 mg PO BID 08/26/16 09/02/17 Theophylline Anhydrous [Curt-24] 100 mg PO DAILY 10/04/16 09/02/17 Docusate [Colace] 100 mg PO BID PRN 11/02/16 09/02/17 Roflumilast [Daliresp] 500 mcg PO DAILY 11/02/16 09/02/17 Buspirone HCl [Buspar] 15 mg PO BID 02/28/17 09/02/17 GuaiFENesin ER [Mucinex] 600 mg PO Q12H PRN 02/28/17 09/02/17 Calcium Carbonate [Calcium] 600 mg PO BIDWM 05/27/17 09/02/17 Furosemide [Lasix] 20 mg PO DAILY PRN 05/27/17 09/02/17 Lovastatin 40 mg PO HS 05/27/17 09/02/17 Sertraline [Zoloft] 50 mg PO DAILY 05/27/17 09/02/17 Tiotropium [place] [Spiriva 2 puff IH DAILY 05/27/17 09/02/17 Respimat] Metoprolol [Lopressor] 25 mg PO BID 06/06/17 09/02/17 Mometasone/Formoterol [Dulera 100 2 puff IH BID 09/02/17 09/02/17 Mcg/5 Mcg Inhaler] Omeprazole [PriLOSEC] 20 mg PO DAILY 09/02/17 09/02/17 Simethicone [Gas Relief] 180 mg PO TID PRN 09/02/17 09/02/17 Tramadol HCl [Ultram] 50 - 100 mg PO QID PRN 09/02/17 09/02/17 predniSONE [PredniSONE] 20 mg PO DAILY 09/02/17 09/02/17 Previous Rx's Medication Instructions Recorded Aspirin 81 mg PO DAILY #30 tab.chew 05/20/16 Ipratropium/Albuterol Neb [Duoneb] 3 ml IH QIDR inhsol 06/17/17 Allergies Allergy/AdvReac Type Severity Reaction Status Date / Time azithromycin [From Zithromax] AdvReac See Verified 05/27/17 18:37 Comments hydrochlorothiazide AdvReac Difficulty Verified 05/27/17 18:37 Breathing ibuprofen [From Motrin] AdvReac Gastrointestinal Verified 05/27/17 18:37 Upset levofloxacin [From Levaquin] AdvReac See Verified 05/27/17 18:37 Comments Past Medical History - Past Medical History Medical history: Reports: COPD, CVA, hyperlipidemia, hypertension Surgical history: Reports: non-contributory, other Psychiatric history: Reports: anxiety, depression - Social History Smoking Status: Former smoker Smokeless Tobacco Status: No Alcohol use: Reports: none Drug use: Reports: none Physical Exam - General Limitations: no limitations General appearance: alert, in no apparent distress Course Vital Signs Temperature 97.9 F 09/02/17 10:07 Pulse Rate 60 09/02/17 10:07 Respiratory Rate 18 09/02/17 10:07 Blood Pressure 143/88 09/02/17 10:07 O2 Sat by Pulse Oximetry 98 09/02/17 10:07 Temperature 97.9 F 09/02/17 10:07 Pulse Rate 60 09/02/17 10:07 Respiratory Rate 18 09/02/17 13:01 Blood Pressure 141/81 09/02/17 13:01 O2 Sat by Pulse Oximetry 98 09/02/17 10:07 Oxygen Delivery Oxygen Delivery Nasal Cannula Medical Decision Making - Lab Data Result diagrams: 09/02/17 10:18 09/02/17 10:18 Lab Results 09/02/17 09/02/17 09/02/17 Range/Units 10:18 10:18 10:18 WBC 11.2 H (4.3-11.1) K/mcL RBC 4.68 (4.19-5.50) M/mcL Hgb 13.6 (12.9-16.9) g/dL Hct 43.6 (37.5-50.1) % MCV 93.2 (83.0-100.0) fL MCH 29.1 (28.0-33.3) pg MCHC 31.2 L (31.6-35.5) g/dL RDW 13.7 (11.5-14.5) % Plt Count 206 (140-400) K/mcL MPV 10.5 (9.4-12.4) fL Immature Gran % 0.4 (0-4) % Seg Neutrophils % 83.0 % Lymphocytes % 4.7 % Monocytes % 10.4 % Eosinophils % 1.1 % Basophils % 0.4 % Neutrophils # 9.3 H (1.6-8.9) K/mcL Lymphocytes # 0.5 L (0.6-4.6) K/mcL Monocytes # 1.2 (0.0-1.3) K/mcL Eosinophils # 0.1 (0.0-0.6) K/mcL Basophils # 0.0 (0.0-0.2) K/mcL D-Dimer 808 H (0-500) ng/mLFEU Sodium 138 (136-145) mEq/L Potassium 4.1 (3.5-5.1) mEq/L Chloride 101 (98-107) mEq/L Carbon Dioxide 31 H (23-29) mEq/L BUN 14 (8-23) mg/dL Creatinine 1.08 (0.70-1.30) mg/dL Est GFR ( Amer) > 60 (> 60) Est GFR (Non-Af Amer) > 60 (> 60) BUN/Creatinine Ratio 13 (6-26) Glucose 103 (70-105) mg/dL Calculated Osmolality 287 (280-300) Calcium 9.1 (8.6-10.3) mg/dL Total Bilirubin 0.5 (0.3-1.0) mg/dL Direct Bilirubin 0.2 (0.0-0.2) mg/dL Indirect Bilirubin 0.3 (0.0-1.2) mg/dL AST 16 (13-39) Units/L ALT 20 (7-52) Units/L Alkaline Phosphatase 74 (34-104) Units/L Troponin I < 0.03 (< 0.04) ng/mL B-Natriuretic Peptide (Less than 100) pg/mL Serum Total Protein 6.4 (6.4-8.9) g/dL Albumin 3.5 (3.5-5.7) g/dL Globulin 2.9 (2.4-3.5) g/dL Albumin/Globulin Ratio 1.2 (1.1-2.2) Lipase 23 (11-82) Units/L /15/18 Range/Units 10:18 WBC (4.3-11.1) K/mcL RBC (4.19-5.50) M/mcL Hgb (12.9-16.9) g/dL Hct (37.5-50.1) % MCV (83.0-100.0) fL MCH (28.0-33.3) pg MCHC (31.6-35.5) g/dL RDW (11.5-14.5) % Plt Count (140-400) K/mcL MPV (9.4-12.4) fL Immature Gran % (0-4) % Seg Neutrophils % % Lymphocytes % % Monocytes % % Eosinophils % % Basophils % % Neutrophils # (1.6-8.9) K/mcL Lymphocytes # (0.6-4.6) K/mcL Monocytes # (0.0-1.3) K/mcL Eosinophils # (0.0-0.6) K/mcL Basophils # (0.0-0.2) K/mcL D-Dimer (0-500) ng/mLFEU Sodium (136-145) mEq/L Potassium (3.5-5.1) mEq/L Chloride (98-107) mEq/L Carbon Dioxide (23-29) mEq/L BUN (8-23) mg/dL Creatinine (0.70-1.30) mg/dL Est GFR ( Amer) (> 60) Est GFR (Non-Af Amer) (> 60) BUN/Creatinine Ratio (6-26) Glucose (70-105) mg/dL Calculated Osmolality (280-300) Calcium (8.6-10.3) mg/dL Total Bilirubin (0.3-1.0) mg/dL Direct Bilirubin (0.0-0.2) mg/dL Indirect Bilirubin (0.0-1.2) mg/dL AST (13-39) Units/L ALT (7-52) Units/L Alkaline Phosphatase (34-104) Units/L Troponin I (< 0.04) ng/mL B-Natriuretic Peptide 295 H (Less than 100) pg/mL Serum Total Protein (6.4-8.9) g/dL Albumin (3.5-5.7) g/dL Globulin (2.4-3.5) g/dL Albumin/Globulin Ratio (1.1-2.2) Lipase (11-82) Units/L Attestation Statement - Attestation Attestation: I examined this patient and my medical decision-making was reviewed with the COTTON DISPATCHER/PA/Advanced Practice Nurse/Resident Physician. I agree with the documented findings, disposition and treatment plan as described except to the extent set forth below. I did see the patient immediately upon arrival, he does have shortness of breath as well as left-sided chest pain which is pleuritic and I did review the previous record. Patient has had [address] scans. Evaluation in progress including EKG and I did review which shows sinus bradycardia with a rate of 88 and without acute ischemic change as well as a laboratory evaluation and chest x -ray. Results pending. [id number]
--- NOTE | 2017-09-02 10:19 | Emergency Department Note ---
Disposition Clinical Impression: Pleuritic chest pain Pneumonia Qualifiers: Pneumonia type: due to unspecified organism Laterality: right Lung location: lower lobe of lung Qualified Code(s): J18.1 - Lobar pneumonia, unspecified organism Disposition: Admitted As Inpatient Condition: Undetermined Referrals: NONE,PCP [Non-Partnered Physician] - Forms: ED Satisfaction Letter Time of Disposition: 12:30 General Adult HPI - General Chief complaint: ED Chest Pain Stated complaint: Chest Pain Time Seen by Provider: 09/02/17 10:09 Source: patient, EMS Mode of arrival: EMS Limitations: no limitations Nursing Notes Reviewed: Yes Vital Signs Reviewed: Yes - History of Present Illness HPI Narrative: 66-year-old male with history of hypertension, emphysema, arrives to the emergency department with complaint of left-sided chest wall pain in his lower left chest radiating distally. He is sitting and is very sharp in nature. It is worse with taking a deep breath. In addition the patient states it is also worse with movement. He denies any other associated symptoms other than mild dyspnea but he describes the dyspnea as more associated with pain with taking a deep breath. The patient denies any hemoptysis but does admit to some green and white colored sputum change. Patient denies any unilateral leg swelling, history of DVT or PE, recent surgeries, recent immobilizations. The patient is resting comfortably in the room when lying still but any time he is moving his left chest hurts. Patient wears 2 L nasal cannula [id number]. He has no hypoxia noted on monitor at this time. Patient denies any other radiation of the pain. He denies any traumatic injury or any rashes associated with this left chest wall pain. During examination, I personally placed patient onto oxygen. Pain Scale: 7 - Related Data Home Medications Medication Instructions Recorded Confirmed Mometasone/Formoterol [Dulera 200 2 puff IH BID 01/25/16 06/13/17 Mcg/5 Mcg Inhaler] Acetaminophen [Tylenol] 500 mg PO Q6H PRN 08/26/16 06/13/17 Primidone [Mysoline] 50 mg PO BID 08/26/16 06/13/17 Theophylline Anhydrous [Curt-24] 100 mg PO DAILY 10/04/16 06/13/17 Docusate [Colace] 100 mg PO BID PRN 11/02/16 06/13/17 Roflumilast [Daliresp] 500 mcg PO DAILY 11/02/16 06/13/17 Buspirone HCl [Buspar] 15 mg PO BID 02/28/17 06/13/17 Famotidine [Pepcid] 20 mg PO DAILY 02/28/17 06/13/17 GuaiFENesin ER [Mucinex] 600 mg PO Q12H PRN 02/28/17 06/13/17 Ergocalciferol (VITAMIN D2) 50,000 unit PO FR 04/22/17 06/13/17 [Vitamin D2] Calcium Carbonate [Calcium] 600 mg PO BIDWM 05/27/17 06/13/17 Furosemide [Lasix] 20 mg PO DAILY PRN 05/27/17 06/13/17 Lovastatin 40 mg PO HS 05/27/17 06/13/17 Sertraline [Zoloft] 50 mg PO DAILY 05/27/17 06/13/17 Tiotropium [place] [Spiriva 2 puff IH DAILY 05/27/17 06/13/17 Respimat] Metoprolol [Lopressor] 25 mg PO BID 06/06/17 06/13/17 predniSONE [PredniSONE] See Taper PO DAILY 06/13/17 06/13/17 Previous Rx's Medication Instructions Recorded Aspirin 81 mg PO DAILY #30 tab.chew 05/20/16 Ipratropium/Albuterol Neb [Duoneb] 3 ml IH [id number] inhsol 03/25/17 Amoxicillin/Clavulanate [Augmentin] 875 mg PO BIDWM #14 tablet 06/07/17 Ipratropium/Albuterol Neb [Duoneb] 3 ml IH QIDR inhsol 06/17/17 Albuterol Neb [Proventil Neb] 2.5 mg IH Q4HR #30 vial.neb 06/28/17 Albuterol Sulfate [Albuterol 2 puff IH Q4HR #1 inhaler 06/28/17 Inhaler] predniSONE [PredniSONE] See Taper PO DAILY 9 Days #18 06/28/17 tablet Allergies Allergy/AdvReac Type Severity Reaction Status Date / Time azithromycin [From Zithromax] AdvReac See Verified 05/27/17 18:37 Comments hydrochlorothiazide AdvReac Difficulty Verified 05/27/17 18:37 Breathing ibuprofen [From Motrin] AdvReac Gastrointestinal Verified 05/27/17 18:37 Upset levofloxacin [From Levaquin] AdvReac See Verified 05/27/17 18:37 Comments All systems ED: reviewed and negative except as stated. Constitutional: Denies: fever, chills, weakness ENT ED: Denies: congestion Cardiovascular: Reports: chest pain (Chest wall). Denies: dyspnea on exertion, edema Respiratory: Reports: cough, dyspnea, sputum production. Denies: wheezes, hemoptysis, stridor Gastrointestinal: Denies: abdominal pain, nausea, vomiting Genitourinary: Denies: urgency, dysuria Musculoskeletal: Denies: back pain, neck pain, arthralgia, myalgia Integumentary: Denies: rash Neurological: Denies: headache, weakness, numbness, paresthesias, confusion Past Medical History - Past Medical History Attestation: Yes The following information was validated with the patient. Source: patient Medical history: Reports: COPD, CVA, hyperlipidemia, hypertension Surgical history: Reports: non-contributory, other Psychiatric history: Reports: anxiety, depression - Social History Smoking Status: Former smoker Smokeless Tobacco Status: No Alcohol use: Reports: none Drug use: Reports: none Physical Exam - General Limitations: no limitations General appearance: alert, in no apparent distress - Head Head exam: atraumatic, normocephalic, normal inspection - Eye Eye exam: Present: normal appearance, PERRL, EOMI - ENT ENT exam: normal exam, normal oropharynx, mucous membranes moist - Neck Neck exam: Present: normal inspection, full ROM, trachea midline - Chest Chest inspection: Present: normal inspection, symmetric chest wall rise, tenderness (Left chest wall along rib 10) - Respiratory Respiratory exam: Present: normal lung sounds bilaterally - Cardiovascular Cardiovascular exam: Present: regular rate, normal rhythm, normal heart sounds - Abdominal Exam Abdominal exam: Present: soft, Non-Tender, tenderness (LUQ along rib line). Absent: distention, guarding, rebound, rigidity, Medina's sign, Rovsing's sign, tenderness at McBurney's Point, hernia - Extremities Exam Extremities exam: Present: normal inspection, full ROM. Absent: tenderness, pedal edema - Neurological Exam Neurological exam: Present: alert, oriented X3 - Skin Skin exam: Present: warm, dry, intact, normal color Course Vital Signs Temperature 97.9 F 09/02/17 10:07 Pulse Rate 60 09/02/17 10:07 Respiratory Rate 18 09/02/17 10:07 Blood Pressure 143/88 09/02/17 10:07 O2 Sat by Pulse Oximetry 98 09/02/17 10:07 Temperature 97.9 F 09/02/17 10:07 Pulse Rate 60 09/02/17 10:07 Respiratory Rate 18 09/02/17 10:07 Blood Pressure 143/88 09/02/17 10:07 O2 Sat by Pulse Oximetry 98 09/02/17 10:07 Oxygen Delivery Oxygen Delivery Room Air Medical Decision Making - MDM Narrative Medical decision making narrative: Patient's workup in the emergency department demonstrates a mildly elevated leukocytosis as well as Eric d-dimer that was elevated. The patient received a CTA of the chest. At that time right lower lobe groundglass opacity was noted. Patient is allergic to Cipro and levofloxacin and currently lives at a longterm facility sent the patient was given Rocephin and vancomycin. The patient is not hypoxic this time. Given the patient's quick oxygen desaturation on ambulation and any exertion, we will admit the patient to the hospital at this time. The patient made aware and agrees to plan. No further questions or concerns noted. - Lab Data Lab results reviewed: Yes I reviewed the patient's lab results. Result diagrams: 09/02/17 10:18 09/02/17 10:18 Lab Results 09/02/17 09/02/17 09/02/17 Range/Units 10:18 10:18 10:18 WBC 11.2 H (4.3-11.1) K/mcL RBC 4.68 (4.19-5.50) M/mcL Hgb 13.6 (12.9-16.9) g/dL Hct 43.6 (37.5-50.1) % MCV 93.2 (83.0-100.0) fL MCH 29.1 (28.0-33.3) pg MCHC 31.2 L (31.6-35.5) g/dL RDW 13.7 (11.5-14.5) % Plt Count 206 (140-400) K/mcL MPV 10.5 (9.4-12.4) fL Immature Gran % 0.4 (0-4) % Seg Neutrophils % 83.0 % Lymphocytes % 4.7 % Monocytes % 10.4 % Eosinophils % 1.1 % Basophils % 0.4 % Neutrophils # 9.3 H (1.6-8.9) K/mcL Lymphocytes # 0.5 L (0.6-4.6) K/mcL Monocytes # 1.2 (0.0-1.3) K/mcL Eosinophils # 0.1 (0.0-0.6) K/mcL Basophils # 0.0 (0.0-0.2) K/mcL D-Dimer 808 H (0-500) ng/mLFEU Sodium 138 (136-145) mEq/L Potassium 4.1 (3.5-5.1) mEq/L Chloride 101 (98-107) mEq/L Carbon Dioxide 31 H (23-29) mEq/L BUN 14 (8-23) mg/dL Creatinine 1.08 (0.70-1.30) mg/dL Est GFR ( Amer) > 60 (> 60) Est GFR (Non-Af Amer) > 60 (> 60) BUN/Creatinine Ratio 13 (6-26) Glucose 103 (70-105) mg/dL Calculated Osmolality 287 (280-300) Calcium 9.1 (8.6-10.3) mg/dL Total Bilirubin 0.5 (0.3-1.0) mg/dL Direct Bilirubin 0.2 (0.0-0.2) mg/dL Indirect Bilirubin 0.3 (0.0-1.2) mg/dL AST 16 (13-39) Units/L ALT 20 (7-52) Units/L Alkaline Phosphatase 74 (34-104) Units/L Troponin I < 0.03 (< 0.04) ng/mL B-Natriuretic Peptide (Less than 100) pg/mL Serum Total Protein 6.4 (6.4-8.9) g/dL Albumin 3.5 (3.5-5.7) g/dL Globulin 2.9 (2.4-3.5) g/dL Albumin/Globulin Ratio 1.2 (1.1-2.2) Lipase 23 (11-82) Units/L /15/18 Range/Units 10:18 WBC (4.3-11.1) K/mcL RBC (4.19-5.50) M/mcL Hgb (12.9-16.9) g/dL Hct (37.5-50.1) % MCV (83.0-100.0) fL MCH (28.0-33.3) pg MCHC (31.6-35.5) g/dL RDW (11.5-14.5) % Plt Count (140-400) K/mcL MPV (9.4-12.4) fL Immature Gran % (0-4) % Seg Neutrophils % % Lymphocytes % % Monocytes % % Eosinophils % % Basophils % % Neutrophils # (1.6-8.9) K/mcL Lymphocytes # (0.6-4.6) K/mcL Monocytes # (0.0-1.3) K/mcL Eosinophils # (0.0-0.6) K/mcL Basophils # (0.0-0.2) K/mcL D-Dimer (0-500) ng/mLFEU Sodium (136-145) mEq/L Potassium (3.5-5.1) mEq/L Chloride (98-107) mEq/L Carbon Dioxide (23-29) mEq/L BUN (8-23) mg/dL Creatinine (0.70-1.30) mg/dL Est GFR ( Amer) (> 60) Est GFR (Non-Af Amer) (> 60) BUN/Creatinine Ratio (6-26) Glucose (70-105) mg/dL Calculated Osmolality (280-300) Calcium (8.6-10.3) mg/dL Total Bilirubin (0.3-1.0) mg/dL Direct Bilirubin (0.0-0.2) mg/dL Indirect Bilirubin (0.0-1.2) mg/dL AST (13-39) Units/L ALT (7-52) Units/L Alkaline Phosphatase (34-104) Units/L Troponin I (< 0.04) ng/mL B-Natriuretic Peptide 295 H (Less than 100) pg/mL Serum Total Protein (6.4-8.9) g/dL Albumin (3.5-5.7) g/dL Globulin (2.4-3.5) g/dL Albumin/Globulin Ratio (1.1-2.2) Lipase (11-82) Units/L - Radiology Data Radiology results reviewed: Yes I reviewed the patient's radiology results. Chest X-Ray 09/02/17 10:09 IMPRESSION: 1. No active pulmonary disease. 2. COPD with lower lobe chronic inflammation. D/ / Michoacano Tarango MD / Michoacano Tarango MD Interpreting Provider: Michoacano Tarango MD Chest CTA 09/02/17 11:00 IMPRESSION: No evidence of pulmonary embolism. Trace bilateral pleural effusions. Bilateral lower lobe peribronchial cuffing suggesting infectious/inflammatory bronchitis. Patchy subpleural right lower lobe ground-glass opacities suggesting atypical pneumonia. Severe paraseptal emphysema and moderate centrilobular emphysema throughout the lungs. Cholelithiasis without evidence of acute cholecystitis. D/ / 09/02/2017 12:18:32 Esteban Johnson MD / heather Interpreting Provider: Esteban Johnson MD - EKG Data EKG #1 EKG attestation: Yes I reviewed and interpreted this EKG. EKG results narrative: Heart rate 58 BPM. Sinus bradycardia. No ST elevation or depression. Similar to previous EKG on 06/28/17
[2017-09-02 10:35] LABS: Basophils % 0.4 %; Eosinophils # 0.1 K/mcL (0.0-0.6); Eosinophils % 1.1 %; Hematocrit 43.6 % (37.5-50.1); Hemoglobin 13.6 g/dL (12.9-16.9); Immature Granulocytes % 0.4 % (0-4); Lymphocytes # 0.5 K/mcL (0.6-4.6); Lymphocytes % 4.7 %; Mean Corpuscular HGB Conc 31.2 g/dL (31.6-35.5); Mean Corpuscular Hemoglobin 29.1 pg (28.0-33.3); Mean Corpuscular Volume 93.2 fL (83.0-100.0); Mean Platelet Volume 10.5 fL (9.4-12.4); Monocytes # 1.2 K/mcL (0.0-1.3); Monocytes % 10.4 %; Neutrophils # 9.3 K/mcL (1.6-8.9); Platelet Count 206 K/mcL (140-400); Red Blood Count 4.68 M/mcL (4.19-5.50); Red Cell Distribution Width 13.7 % (11.5-14.5)
[2017-09-02 10:53] LABS: Alanine Aminotransferase 20 Units/L (7-52); Albumin 3.5 g/dL (3.5-5.7); Albumin/Globulin Ratio 1.2 (1.1-2.2); Alkaline Phosphatase 74 Units/L (34-104); Aspartate Amino Transferase 16 Units/L (13-39); BUN/Creatinine Ratio 13 (6-26); Bilirubin,Direct 0.2 mg/dL (0.0-0.2); Bilirubin,Indirect 0.3 mg/dL (0.0-1.2); Bilirubin,Total 0.5 mg/dL (0.3-1.0); Blood Urea Nitrogen 14 mg/dL (8-23); Calcium 9.1 mg/dL (8.6-10.3); Carbon Dioxide 31 mEq/L (23-29); Chloride 101 mEq/L (98-107); Globulin 2.9 g/dL (2.4-3.5); Glucose 103 mg/dL (70-105); Lipase 23 Units/L (11-82); Osmolality,Calculated 287 (280-300); Potassium 4.1 mEq/L (3.5-5.1); Sodium 138 mEq/L (136-145); Total Protein 6.4 g/dL (6.4-8.9); Troponin I < 0.03 ng/mL (< 0.04); eGFR For African Americans > 60 (> 60); eGFR For Non-African Americans > 60 (> 60)
[2017-09-02] MEDS ORDERED: Isovue-370 500 ML INFUS..BTL IV ONE (11:00)
[2017-09-02] MEDS ORDERED: cefTRIAXone 1,000 MG in Water for inj. (sterile) 20 ML 10 ML IVP ONE (12:27)
--- NOTE | 2017-09-02 13:40 | Internal Med History&Physical ---
Date of Encounter: 09/02/17 Time of Encounter: 13:37 Internal Medicine - H&P: HPI History of present illness: Mr. Amor is a 66 year old male with a history of COPD, quit smoking, baseline uses 2 L nasal cannula as needed, on chronic prednisone 10 mg daily for many months now, assisted resident since June 05 for generalized weakness who presents with acute onset of left lower lung pain. Imaging evidence suspicious for atypical pneumonia. He reports waking up at 3:30 in the morning with extreme left lower lung pain that is pleuritic in character, worse on inspiration, rate 6-8 out of 10, described as sharp. Associated with cough productive of greenish sputum. Denies any fevers and chills EKG personally reviewed with rate 58, sinus bradycardia CT/CT angio chest IMPRESSION: No evidence of pulmonary embolism. Trace bilateral pleural effusions. Bilateral lower lobe peribronchial cuffing suggesting infectious/inflammatory bronchitis. Patchy subpleural right lower lobe ground-glass opacities suggesting atypical pneumonia. Severe paraseptal emphysema and moderate centrilobular emphysema throughout the lungs. Cholelithiasis without evidence of acute cholecystitis. XR/XR chest 1V portable IMPRESSION: 1. No active pulmonary disease. 2. COPD with lower lobe chronic inflammation. Past Med Surg Social Fam HX - Past Medical History Medical history: COPD, CVA, hyperlipidemia, hypertension Additional medical history: impaired mobility from previous CVA Psychiatric history: anxiety, depression - Past Surgical History Surgical History: non-contributory, other Additional surgical history: dental, herniated testicle - Social History Smoking Status: Former smoker Smokeless Tobacco Status: No Alcohol use: none Drug use: none - Family History Brother Family Member Ethnicity: Non- Living Status: Mother Adopted: No Family Member Ethnicity: Non- Living Status: Hx Family Cardiac Disorders: No Hx Family Respiratory Disorders: No Hx Family Cancer: Yes (lung) Hx Family GI Disorders: No Hx Family Endocrine Disorder: No Hx Family Neuromuscular Disorders: No Hx Family Neurologic Disorders: No Hx Family HEENT Disorders: No Hx Family Autoimmune Disorders: No Father Adopted: No Family Member Ethnicity: Non- Living Status: Hx Family Cardiac Disorders: No Hx Family Respiratory Disorders: Yes (emphysema) Hx Family Cancer: No Hx Family GI Disorders: No Hx Family Endocrine Disorder: No Hx Family Neuromuscular Disorders: No Hx Family Neurologic Disorders: No Hx Family HEENT Disorders: No Hx Family Autoimmune Disorders: No Internal Medicine - H&P: Meds Aspirin 81 mg PO DAILY #30 tab.chew 05/20/16 [Rx] Acetaminophen [Tylenol] 500 mg PO Q6H PRN 08/26/16 [History] Primidone [Mysoline] 50 mg PO BID 08/26/16 [History] Theophylline Anhydrous [Curt-24] 100 mg PO DAILY 10/04/16 [History] Docusate [Colace] 100 mg PO BID PRN 11/02/16 [History] Roflumilast [Daliresp] 500 mcg PO DAILY 11/02/16 [History] Buspirone HCl [Buspar] 15 mg PO BID 02/28/17 [History] GuaiFENesin ER [Mucinex] 600 mg PO Q12H PRN 02/28/17 [History] Calcium Carbonate [Calcium] 600 mg PO BIDWM 05/27/17 [History] Furosemide [Lasix] 20 mg PO DAILY PRN 05/27/17 [History] Lovastatin 40 mg PO HS 05/27/17 [History] Sertraline [Zoloft] 50 mg PO DAILY 05/27/17 [History] Tiotropium [place] [Spiriva Respimat] 2 puff IH DAILY 05/27/17 [History] Metoprolol [Lopressor] 25 mg PO BID 06/06/17 [History] Ipratropium/Albuterol Neb [Duoneb] 3 ml IH QIDR inhsol 06/17/17 [Rx] Mometasone/Formoterol [Dulera 100 Mcg/5 Mcg Inhaler] 2 puff IH BID 09/02/17 [ History] Omeprazole [PriLOSEC] 20 mg PO DAILY 09/02/17 [History] Simethicone [Gas Relief] 180 mg PO TID PRN 09/02/17 [History] Tramadol HCl [Ultram] 50 - 100 mg PO QID PRN 09/02/17 [History] predniSONE [PredniSONE] 20 mg PO DAILY 09/02/17 [History] 3 Allergy/AdvReac Type Severity Reaction Status Date / Time azithromycin [From Zithromax] AdvReac See Verified 05/27/17 18:37 Comments hydrochlorothiazide AdvReac Difficulty Verified 05/27/17 18:37 Breathing ibuprofen [From Motrin] AdvReac Gastrointestinal Verified 05/27/17 18:37 Upset levofloxacin [From Levaquin] AdvReac See Verified 05/27/17 18:37 Comments All Systems PM: A 10-system review of systems was performed and is negative for pertinent findings except as documented above in the HPI. Review of systems: ROS 14 point review of systems reviewed as best as possible given presentation. Pertinent positive or negative as per HPI or otherwise reviewed as negative - Constitutional Vitals: Temp Pulse Resp BP Pulse Ox 97.9 F 60 18 141/81 98 09/02/17 10:07 09/02/17 10:07 09/02/17 13:01 09/02/17 13:01 09/02/17 10:07 Exam: General - AAO x 3 Psych - Appropriate affect/speech. No agitation Eyes - NISHI. Eye lids intact. No scleral icterus Heart - Sinus heavenly. RRR. S1 and S2 present. No added HS/murmurs appreciated. No elevated JVD appreciated. Lung - Adequate air entry b/l, left lower zone crackles. No wheeze appreciated GI - Soft, non-tender. No hepatosplenomegaly/ascites. BS+ - No CVA/suprapubic tenderness or palpable bladder distension Skin - Intact. No rash/petechiae/ecchymosis. Warm extremities Internal Med - H&P Results - Labs CBC & Chem 7: 09/02/17 10:18 09/02/17 10:18 - Assessment and plan (1) HCAP (healthcare-associated pneumonia) Current Visit: No Status: Acute Assessment and plan: empiric IV cefepime, vanc, doxy send serologies incentive spirometry duonebs (2) Pleurisy Current Visit: Yes Status: Acute Assessment and plan: 2/2 PNA above (3) Hypertension Current Visit: No Status: Chronic Assessment and plan: continue medicines Qualifiers: Hypertension type: essential hypertension Qualified Code(s): I10 - Essential (primary) hypertension (4) History of stroke Current Visit: No Status: Chronic Assessment and plan: no acute findings (5) COPD (chronic obstructive pulmonary disease) Current Visit: Yes Status: Acute Assessment and plan: chronic, no acute flare continue 10 mg prednisone daily consider pred taper slowly Qualifiers: COPD type: chronic bronchitis Qualified Code(s): J41.0 - Simple chronic bronchitis - Time Spent With Patient Total time spent is greater than 50% in coordination of care (as documented) at patient's floor/unit and/or counseling patient:
[2017-09-02] MEDS ORDERED: Naloxone 0.4 MG/ML INJ IVP PRN (13:47)
[2017-09-02] MEDS ORDERED: Vancomycin 0 MG in 0.9 % Sodium Chloride 250 ML IVPB SCH (14:00)
[2017-09-02] MEDS: Doxycycline 100 MG in 0.9 % Sodium Chloride Mini Bag 100 ML IVPB SCH (15:27)
[2017-09-02] MEDS: traMADol 50 MG TABLET PO PRN (15:27)
[2017-09-02] MEDS: Ringers Solution, Lactated 1,000 ML IVC SCH (15:28)
[2017-09-02] MEDS: *HR* OxyCODONE Immed Rel 5 MG TABLET PO PRN (18:49)
[2017-09-02] MEDS: Budesonide/Formoterol 80/4.5 MDI IH SCH (20:40)
[2017-09-02] MEDS: Primidone 50 MG TABLET PO SCH (21:13)
[2017-09-02] MEDS: Cefepime HCl 2,000 MG in 0.9 % Sodium Chloride Mini Bag 100 ML IVPB SCH (21:14)
[2017-09-02] MEDS: Ipratropium/Albuterol Neb 3 ML IH SCH (22:37)
[2017-09-03] MEDS: Ipratropium/Albuterol Neb 3 ML IH SCH ×4 (03:26→23:28)
[2017-09-03] MEDS: traMADol 50 MG TABLET PO PRN ×2 (04:04→16:15)
[2017-09-03 05:39] LABS: Basophils % 0.3 %; Eosinophils # 0.1 K/mcL (0.0-0.6); Eosinophils % 1.8 %; Hematocrit 37.6 % (37.5-50.1); Immature Granulocytes % 0.3 % (0-4); Mean Corpuscular HGB Conc 31.4 g/dL (31.6-35.5); Mean Corpuscular Hemoglobin 29.1 pg (28.0-33.3); Mean Corpuscular Volume 92.6 fL (83.0-100.0); Mean Platelet Volume 10.5 fL (9.4-12.4); Monocytes % 12.3 %; Neutrophils # 5.8 K/mcL (1.6-8.9); Platelet Count 167 K/mcL (140-400); Red Blood Count 4.06 M/mcL (4.19-5.50); Red Cell Distribution Width 13.6 % (11.5-14.5); Segmented Neutrophils % 72.3 %
[2017-09-03 05:41] LABS: Hemoglobin 11.8 g/dL (12.9-16.9)
[2017-09-03 05:51] LABS: BUN/Creatinine Ratio 14 (6-26); Blood Urea Nitrogen 15 mg/dL (8-23); Calcium 8.2 mg/dL (8.6-10.3); Carbon Dioxide 29 mEq/L (23-29); Chloride 103 mEq/L (98-107); Glucose 95 mg/dL (70-105); Magnesium 1.7 mg/dL (1.6-2.6); Osmolality,Calculated 285 (280-300); Sodium 137 mEq/L (136-145); eGFR For African Americans > 60 (> 60); eGFR For Non-African Americans > 60 (> 60)
[2017-09-03] MEDS: Doxycycline 100 MG in 0.9 % Sodium Chloride Mini Bag 100 ML IVPB SCH ×2 (06:37→18:16)
[2017-09-03] MEDS: *HR* Enoxaparin 40 MG/0.4 ML SYRINGE SQ SCH (06:37)
[2017-09-03] MEDS: Ringers Solution, Lactated 1,000 ML IVC SCH (06:38)
[2017-09-03] MEDS: predniSONE 10 MG TABLET PO SCH (08:09)
[2017-09-03] MEDS: Cefepime HCl 2,000 MG in 0.9 % Sodium Chloride Mini Bag 100 ML IVPB SCH ×2 (08:09→20:23)
[2017-09-03] MEDS: Aspirin 81 MG TAB.CHEW PO SCH (08:09)
[2017-09-03] MEDS: Primidone 50 MG TABLET PO SCH ×2 (08:09→20:23)
[2017-09-03] MEDS ORDERED: (Roflumilast [Daliresp] 500 MCG) PO SCH (09:00)
[2017-09-03] MEDS ORDERED: Tiotropium 18 MCG inhalation IH SCH (10:00)
[2017-09-03] MEDS: *HR* OxyCODONE Immed Rel 5 MG TABLET PO PRN ×2 (10:12→20:23)
--- NOTE | 2017-09-03 10:19 | Internal Med Progress Note ---
Date of Encounter: 09/03/17 Time of Encounter: 10:18 - Assessment and plan (1) HCAP (healthcare-associated pneumonia) Current Visit: No Status: Acute Assessment and plan: Presents with shortness of breath, generalized weakness and pleuritic lung pain with inspiration Improving today, lungs clear/dim CTA AP&L, 2LNC,, afebrile, hemodynamically stable Imaging suspicious for atypical PNA Leukocytosis on admission Recent hospitalizations and lives in SNF Treat for HCAP Continue empiric IV cefepime, vanc, and doxy-adjust based on culture results De-escalate antibiotics and patient afebrile and stable for 48 hours serologies negative Continue incentive spirometry Continue duonebs Continue oral steroids (2) Pleurisy Current Visit: Yes Status: Acute Assessment and plan: 2/2 PNA see above (3) Hypertension Current Visit: No Status: Chronic Assessment and plan: H/O HTN, BP stable, continue anti-HTN meds, monitor Qualifiers: Hypertension type: essential hypertension Qualified Code(s): I10 - Essential (primary) hypertension (4) History of stroke Current Visit: No Status: Chronic Assessment and plan: no stroke s/sx (5) COPD (chronic obstructive pulmonary disease) Current Visit: Yes Status: Acute Assessment and plan: chronic, not in acute exacerbation continue 10 mg prednisone daily Qualifiers: COPD type: unspecified COPD Qualified Code(s): J44.9 - Chronic obstructive pulmonary disease, unspecified - Time Spent With Patient Total time spent is greater than 50% in coordination of care (as documented) at patient's floor/unit and/or counseling patient: 25 - 35 minutes - Subjective Interval history: Patient seen and examined at bedside today. No acute changes overnight. Patient reporting that shortness of breath is improving, however does continue to experience some shortness of breath with activity. Denies any cough fever or chills. Main complaints of pain on left lateral ribs likely due to pleurisy. - Constitutional Vitals: Temp Pulse Resp BP Pulse Ox 98.2 F 68 16 146/81 95 09/03/17 07:09 09/03/17 07:09 09/03/17 07:09 09/03/17 07:09 09/03/17 07:09 General appearance: Present: A&O X 3 - Head Head exam: Present: atraumatic, normocephalic - Eye Eye exam: Present: PERRL, conjuntiva pink, sclera anicteric Pupils: Present: PERRL - Neck Neck exam general surgery: Present: supple, trachea midline. Absent: lymphadenopathy - Respiratory Respiratory exam: Present: chest wall tenderness, decreased breath sounds, CTAB. Absent: accessory muscle use, rales, respiratory distress, rhonchi, wheezes, tachypnea Additional comments: Lower left lateral ribs, likely due to pleurisy - Cardiovascular Cardiovascular exam: Present: RRR, +S1, +S2. Absent: diastolic murmur, gallop, rubs, systolic murmur - GI/Abdominal GI/Abdominal exam: Present: normal bowel sounds, soft, no peritoneal signs. Absent: distended, tenderness - Extremities Exam Extremities exam: Present: warm, radial pulses palpable and symmetrical. Absent : calf tenderness, cyanotic, pedal edema - Neurological Exam Neurological exam: Present: CN II-XII intact, oriented X3, no focal deficits. Absent: pronater drift, facial droop, speech deficit - Skin Skin exam: Present: dry, intact Internal Medicine: Result - Labs CBC & Chem 7: 09/03/17 05:03 09/03/17 05:03 Labs: Short CBC 09/03/17 Range/Units 05:03 WBC 8.0 (4.3-11.1) K/mcL Hgb 11.8 L D (12.9-16.9) g/dL Hct 37.6 (37.5-50.1) % Plt Count 167 (140-400) K/mcL Neutrophils # 5.8 (1.6-8.9) K/mcL BMP 09/03/17 05:03 Sodium 137 Potassium 4.0 Chloride 103 Carbon Dioxide 29 BUN 15 Creatinine 1.05 Glucose 95 Calcium 8.2 L - ABG Interpretation ABG results: PT/INR, D-dimer D-Dimer 808 ng/mLFEU (0-500) H 09/02/17 10:18 Consult Discharge Plan - Plan Referrals: Flex De La Garza MD [Primary Care Provider] -
[2017-09-03] MEDS: Budesonide/Formoterol 80/4.5 MDI IH SCH ×2 (10:34→23:28)
[2017-09-03] MEDS ORDERED: Ketorolac 30 MG/ML VIAL IVP ONE (22:02)
[2017-09-04 02:30] LABS: Basophils # 0.1 K/mcL (0.0-0.2); Basophils % 0.7 %; Eosinophils # 0.2 K/mcL (0.0-0.6); Eosinophils % 3.1 %; Hematocrit 35.6 % (37.5-50.1); Hemoglobin 10.9 g/dL (12.9-16.9); Immature Granulocytes % 0.3 % (0-4); Lymphocytes # 0.9 K/mcL (0.6-4.6); Lymphocytes % 13.9 %; Mean Corpuscular HGB Conc 30.6 g/dL (31.6-35.5); Mean Corpuscular Hemoglobin 28.5 pg (28.0-33.3); Mean Corpuscular Volume 93.2 fL (83.0-100.0); Mean Platelet Volume 10.2 fL (9.4-12.4); Monocytes # 0.8 K/mcL (0.0-1.3); Monocytes % 12.5 %; Neutrophils # 4.7 K/mcL (1.6-8.9); Platelet Count 158 K/mcL (140-400); Red Blood Count 3.82 M/mcL (4.19-5.50); Red Cell Distribution Width 13.8 % (11.5-14.5); Segmented Neutrophils % 69.5 %
[2017-09-04 02:52] LABS: BUN/Creatinine Ratio 14 (6-26); Blood Urea Nitrogen 16 mg/dL (8-23); Calcium 8.1 mg/dL (8.6-10.3); Carbon Dioxide 30 mEq/L (23-29); Chloride 104 mEq/L (98-107); Glucose 116 mg/dL (70-105); Osmolality,Calculated 286 (280-300); Potassium 4.1 mEq/L (3.5-5.1); Sodium 137 mEq/L (136-145); eGFR For African Americans > 60 (> 60); eGFR For Non-African Americans > 60 (> 60)
[2017-09-04] MEDS: Ipratropium/Albuterol Neb 3 ML IH SCH ×4 (03:29→21:34)
[2017-09-04] MEDS: *HR* OxyCODONE Immed Rel 5 MG TABLET PO PRN ×2 (04:14→20:44)
[2017-09-04] MEDS: *HR* Enoxaparin 40 MG/0.4 ML SYRINGE SQ SCH (06:26)
[2017-09-04] MEDS: Doxycycline 100 MG in 0.9 % Sodium Chloride Mini Bag 100 ML IVPB SCH ×2 (06:27→17:28)
[2017-09-04] MEDS: predniSONE 10 MG TABLET PO SCH (07:49)
[2017-09-04] MEDS: Primidone 50 MG TABLET PO SCH ×2 (07:50→20:44)
[2017-09-04] MEDS: Aspirin 81 MG TAB.CHEW PO SCH (07:50)
[2017-09-04] MEDS: Cefepime HCl 2,000 MG in 0.9 % Sodium Chloride Mini Bag 100 ML IVPB SCH (07:50)
[2017-09-04] MEDS ORDERED: Aminoglycoside Consult 1 EACH MC ONE (08:21)
[2017-09-04] MEDS: traMADol 50 MG TABLET PO PRN (09:16)
[2017-09-04] MEDS: Budesonide/Formoterol 80/4.5 MDI IH SCH ×2 (09:44→21:35)
--- NOTE | 2017-09-04 13:03 | Internal Med Progress Note ---
Date of Encounter: 09/04/17 Time of Encounter: 13:01 - Assessment and plan (1) HCAP (healthcare-associated pneumonia) Current Visit: No Status: Acute Assessment and plan: Presents with shortness of breath, generalized weakness and pleuritic lung pain with inspiration Having productive cough with thick green/alan Imaging suspicious for atypical PNA Leukocytosis on admission today's WBC 6.7 Recent hospitalizations and lives in SNF Treat for HCAP Respiratory status Improving today, lungs continue to be clear/dim CTA AP&L. patient is on 2LNC,, afebrile, hemodynamically stable De-escalate antibiotic therapy as the patient has been afebrile and hemodynamically stable for greater than 48 hours Sputum cultures, no growth to date, blood cultures no growth to date serology negative Continue incentive spirometry Continue duonebs Continue oral steroids Check labs daily On discharge plan is to return to SNF Consult social welfare research worker (2) Pleurisy Current Visit: Yes Status: Acute Assessment and plan: 2/2 PNA see above (3) Hypertension Current Visit: No Status: Chronic Assessment and plan: H/O HTN, BP stable today, 09/04/17, continue anti-HTN meds, monitor Qualifiers: Hypertension type: essential hypertension Qualified Code(s): I10 - Essential (primary) hypertension (4) History of stroke Current Visit: No Status: Chronic Assessment and plan: History of CVA, No residual deficits Nonfocal neuro exam (5) COPD (chronic obstructive pulmonary disease) Current Visit: Yes Status: Acute Assessment and plan: chronic, not in acute exacerbation, lungs clear/diminished today was 09/04/17 continue 10 mg prednisone daily Respiratory support when necessary per [place] Qualifiers: COPD type: unspecified COPD Qualified Code(s): J44.9 - Chronic obstructive pulmonary disease, unspecified - Time Spent With Patient Total time spent is greater than 50% in coordination of care (as documented) at patient's floor/unit and/or counseling patient: 25 - 35 minutes - Subjective Interval history: Patient seen and examined at bedside today. No acute changes overnight. Patient reporting that shortness of breath is improving, however does continue to experience some shortness of breath with activity. Reporting a productive cough today, reporting thick green sputum. Continued to have complaints of pain on left lateral ribs likely due to pleurisy. - Constitutional Vitals: Temp Pulse Resp BP Pulse Ox 98.0 F 66 16 119/72 97 06/17/18 10:52 09/04/17 10:52 09/04/17 10:52 09/04/17 10:52 09/04/17 10:52 General appearance: Present: A&O X 3 - Head Head exam: Present: atraumatic, normocephalic - Eye Eye exam: Present: PERRL, conjuntiva pink, sclera anicteric Pupils: Present: PERRL - Neck Neck exam general surgery: Present: supple, trachea midline. Absent: lymphadenopathy - Respiratory Respiratory exam: Present: chest wall tenderness (Distal left lateral rib pain to palpation), decreased breath sounds, CTAB. Absent: accessory muscle use, rales, respiratory distress, rhonchi, wheezes, tachypnea - Cardiovascular Cardiovascular exam: Present: RRR, +S1, +S2. Absent: diastolic murmur, gallop, rubs, systolic murmur, tachycardia - GI/Abdominal GI/Abdominal exam: Present: normal bowel sounds, soft, tenderness (Diffuse), no peritoneal signs. Absent: distended - Extremities Exam Extremities exam: Present: warm, radial pulses palpable and symmetrical. Absent : calf tenderness, cyanotic, pedal edema - Neurological Exam Neurological exam: Present: CN II-XII intact, oriented X3, no focal deficits. Absent: pronater drift, facial droop, speech deficit - Skin Skin exam: Present: dry, intact Internal Medicine: Result - Labs CBC & Chem 7: 09/04/17 02:11 09/04/17 02:11 Labs: Short CBC 09/04/17 Range/Units 02:11 WBC 6.7 (4.3-11.1) K/mcL Hgb 10.9 L (12.9-16.9) g/dL Hct 35.6 L (37.5-50.1) % Plt Count 158 (140-400) K/mcL Neutrophils # 4.7 (1.6-8.9) K/mcL BMP 09/04/17 02:11 Sodium 137 Potassium 4.1 Chloride 104 Carbon Dioxide 30 H BUN 16 Creatinine 1.18 Glucose 116 H Calcium 8.1 L - ABG Interpretation ABG results: PT/INR, D-dimer D-Dimer 808 ng/mLFEU (0-500) H 09/02/17 10:18 Consult Discharge Plan - Plan Referrals: Flex De La Garza MD [Primary Care Provider] -
[2017-09-05] MEDS: Ipratropium/Albuterol Neb 3 ML IH SCH ×2 (03:50→12:00)
[2017-09-05 05:04] LABS: Basophils # 0.1 K/mcL (0.0-0.2); Basophils % 0.7 %; Eosinophils # 0.2 K/mcL (0.0-0.6); Hemoglobin 11.1 g/dL (12.9-16.9); Immature Granulocytes % 0.3 % (0-4); Lymphocytes % 14.7 %; Mean Corpuscular HGB Conc 30.8 g/dL (31.6-35.5); Mean Corpuscular Hemoglobin 28.6 pg (28.0-33.3); Mean Corpuscular Volume 92.8 fL (83.0-100.0); Mean Platelet Volume 10.7 fL (9.4-12.4); Monocytes # 0.8 K/mcL (0.0-1.3); Platelet Count 182 K/mcL (140-400); Red Blood Count 3.88 M/mcL (4.19-5.50); Red Cell Distribution Width 13.7 % (11.5-14.5); Segmented Neutrophils % 70.3 %
[2017-09-05 05:29] LABS: BUN/Creatinine Ratio 13 (6-26); Blood Urea Nitrogen 14 mg/dL (8-23); Calcium 8.4 mg/dL (8.6-10.3); Carbon Dioxide 30 mEq/L (23-29); Chloride 104 mEq/L (98-107); Glucose 94 mg/dL (70-105); Osmolality,Calculated 288 (280-300); Potassium 4.2 mEq/L (3.5-5.1); Sodium 139 mEq/L (136-145); eGFR For African Americans > 60 (> 60); eGFR For Non-African Americans > 60 (> 60)
[2017-09-05] MEDS: *HR* Enoxaparin 40 MG/0.4 ML SYRINGE SQ SCH (06:33)
[2017-09-05] MEDS: traMADol 50 MG TABLET PO PRN (06:39)
[2017-09-05] MEDS: Doxycycline 100 MG in 0.9 % Sodium Chloride Mini Bag 100 ML IVPB SCH (06:50)
[2017-09-05] MEDS: predniSONE 10 MG TABLET PO SCH (08:55)
[2017-09-05] MEDS: Aspirin 81 MG TAB.CHEW PO SCH (08:55)
[2017-09-05] MEDS: Primidone 50 MG TABLET PO SCH (08:55)
--- NOTE | 2017-09-05 09:08 | Electrocardiograph Report ---
[address] [address] Test Date: 2017-09-02 Pat Name: Ellis Amor Department: 103 Room: 3B Gender: M Training Instructor: : [id number] Requested By: Lucian Hutchins Order Number: [id number] Reading MD: Phu Howard Measurements Intervals [place] Rate: 58 P: 46 TN: 155 QRS: 62 QRSD: 72 T: 60 QT: 390 QTc: 386 Interpretive Statements SINUS BRADYCARDIA WITH SINUS ARRHYTHMIA Electronically Signed On 09-05-2017 9:06:23 EDT by Phu Howard
[2017-09-05 10:07] LABS: Mycoplasma pneumoniae IgG 1.22 U/L (<=0.09)
[2017-09-05] MEDS: *HR* OxyCODONE Immed Rel 5 MG TABLET PO PRN (10:50)
[2017-09-05 11:42] VITALS: BP 109/62
[2017-09-05] MEDS: Budesonide/Formoterol 80/4.5 MDI IH SCH (12:00)
--- NOTE | 2017-09-05 14:04 | Discharge Summary ---
- NOTES TO OUTPATIENT PROVIDER Notes to Outpatient Provider: treated for PNA. Back to baseline o2 use on day of D/C. No labs or diagnostic studies pending Orders not resulted at time of discharge: Pending orders 09/03/17 10:30 Culture,Blood [BC] Routine 09/04/17 12:58 Culture,Sputum with Gram Stain [RM] Routine 09/06/17 04:00 Basic Metabolic Panel AM 0400 Complete Blood Count [HEME] AM 0400 Date of Encounter: 09/05/17 Time of Encounter: 14:01 - Discharge Diagnosis (1) HCAP (healthcare-associated pneumonia) Priority: Primary Status: Acute Assessment and Plan: Presents with shortness of breath, generalized weakness and pleuritic lung pain with inspiration Patient has had recent hospitalizations and lives in SNF, likely HCAP Having productive cough with thick green/alan sputum; continuing to have cough with sputum production but it is improving Back on baseline O2, 2LNC, No respiratory distress today, Lungs; C/DIM CTA AP&L Imaging on admission suspicious for atypical PNA Leukocytosis on admission but has resolved, Today's WBC 7.1 Sputum cultures, no growth to date Discharge with doxycycline x 3 days blood cultures no growth to date serology negative Continue incentive spirometry Continue COPD medications at DC Continue oral steroids and DC Uneventful hospital course. Instructed to follow-up with PCP within 1 week of discharge. Also, return to the ED shortness of breath, fevers and rib pain persist or worsen. Patient verbalizes understanding, denies any further questions. (2) Pleurisy Priority: Secondary Status: Acute Assessment and Plan: 2/2 PNA Continues to have pain with inspiration reports pain improving in intensity today see above (3) Hypertension Priority: Secondary Status: Chronic Assessment and Plan: H/O HTN, BP stable today, 09/05/17, continue anti-HTN meds at d/c Qualifiers: Hypertension type: essential hypertension Qualified Code(s): I10 - Essential (primary) hypertension (4) History of stroke Priority: Secondary Status: Chronic Assessment and Plan: History of CVA, No residual deficits Nonfocal neuro exam (5) COPD (chronic obstructive pulmonary disease) Priority: Secondary Status: Acute Assessment and Plan: chronic, not in acute exacerbation, lungs clear/diminished today was 09/05/17 continue 10 mg prednisone daily Respiratory support when necessary per [place] Qualifiers: COPD type: unspecified COPD Qualified Code(s): J44.9 - Chronic obstructive pulmonary disease, unspecified Hospital course: Mr. Amor is a 66 year old male Please see assessment and plan for hospital course Discharge discussed with: patient, nurse, social work - Time Spent with Patient Total time spent providing and/or coordinating discharge services: Less than 30 minutes - Discharge Medications Prescriptions: Tramadol HCl [Ultram] 50 - 100 mg PO QID PRN 3 Days #12 tablet PRN Reason: Pain Home Medications: Aspirin 81 mg PO DAILY #30 tab.chew 05/20/16 [Rx] Acetaminophen [Tylenol] 500 mg PO Q6H PRN 08/26/16 [History] Primidone [Mysoline] 50 mg PO BID 08/26/16 [History] Theophylline Anhydrous [Curt-24] 100 mg PO DAILY 10/04/16 [History] Docusate [Colace] 100 mg PO BID PRN 11/02/16 [History] Roflumilast [Daliresp] 500 mcg PO DAILY 11/02/16 [History] Buspirone HCl [Buspar] 15 mg PO BID 02/28/17 [History] GuaiFENesin ER [Mucinex] 600 mg PO Q12H PRN 02/28/17 [History] Calcium Carbonate [Calcium] 600 mg PO BIDWM 05/27/17 [History] Furosemide [Lasix] 20 mg PO DAILY PRN 05/27/17 [History] Lovastatin 40 mg PO HS 05/27/17 [History] Sertraline [Zoloft] 50 mg PO DAILY 05/27/17 [History] Tiotropium [place] [Spiriva Respimat] 2 puff IH DAILY 05/27/17 [History] Metoprolol [Lopressor] 25 mg PO BID 06/06/17 [History] Ipratropium/Albuterol Neb [Duoneb] 3 ml IH QIDR inhsol 06/17/17 [Rx] Mometasone/Formoterol [Dulera 100 Mcg/5 Mcg Inhaler] 2 puff IH BID 09/02/17 [ History] Omeprazole [PriLOSEC] 20 mg PO DAILY 09/02/17 [History] Simethicone [Gas Relief] 180 mg PO TID PRN 09/02/17 [History] predniSONE [PredniSONE] 20 mg PO DAILY 09/02/17 [History] Doxycycline 100 mg PO BID 3 Days #6 capsule 09/05/17 [Rx] Tramadol HCl [Ultram] 50 - 100 mg PO QID PRN 3 Days #12 tablet 09/05/17 [Rx] Allergies/Adverse Reactions: 3 Allergy/AdvReac Type Severity Reaction Status Date / Time azithromycin [From Zithromax] AdvReac See Verified 05/27/17 18:37 Comments hydrochlorothiazide AdvReac Difficulty Verified 05/27/17 18:37 Breathing ibuprofen [From Motrin] AdvReac Gastrointestinal Verified 05/27/17 18:37 Upset levofloxacin [From Levaquin] AdvReac See Verified 05/27/17 18:37 Comments Date of admission: 09/02/17 13:47 Primary care physician: Flex De La Garza MD Consults: 09/02/17 14:04 Consult to Convenience Store Clerk [CONS] Routine Reason for SW Consult: patient from [facility] Discharging clinician: Barak Wang Anticipated date of discharge: 09/05/17 - Constitutional Vitals: Temp Pulse Resp BP Pulse Ox 98.9 F 74 18 109/62 96 09/05/17 11:41 09/05/17 11:41 09/05/17 11:41 09/05/17 11:41 09/05/17 11:41 General appearance: Present: cooperative, A&O X 3 - Head Head exam: Present: atraumatic, normocephalic - Eye Eye exam: Present: EOMI, PERRL, conjuntiva pink, sclera anicteric Pupils: Present: PERRL - Neck Neck exam general surgery: Present: supple, trachea midline. Absent: lymphadenopathy - Respiratory Respiratory exam: Present: decreased breath sounds, CTAB. Absent: accessory muscle use, rales, rhonchi, wheezes - Cardiovascular Cardiovascular exam: Present: RRR, +S1, +S2. Absent: diastolic murmur, gallop, rubs, systolic murmur - GI/Abdominal GI/Abdominal exam: Present: normal bowel sounds, soft, no peritoneal signs. Absent: distended, tenderness - Extremities Exam Extremities exam: Present: warm, radial pulses palpable and symmetrical. Absent : calf tenderness, cyanotic, pedal edema - Neurological Exam Neurological exam: Present: alert, CN II-XII intact, oriented X3, no focal deficits. Absent: pronater drift, facial droop, speech deficit - Skin Skin exam: Present: dry, intact - Patient Status Disposition: Transfer SNF Condition: Good Functional capacity at discharge: independent ambulation Overall status at discharge: patient is progressing back to baseline - Discharge Instructions Instructions: Chronic Obstructive Pulmonary Disease (DC), Pneumonia (DC) Follow Up With: Flex De La Garza MD [Primary Care Provider] - - Diet and Activity Activity: increase activity as tolerated, resume usual activities as tolerated, wear oxygen at all times, wear oxygen at night Diet: advance to your usual diet
--- NOTE | 2017-09-05 14:23 | Physician Discharge Referral ---
ExtendedCare Referral Info Transfer To: [facility] Provider in Charge after Transfer: PCP Institutional Level of Care: Skilled - Diagnosis (1) HCAP (healthcare-associated pneumonia) Priority: Primary Status: Acute (2) Pleurisy Priority: Secondary Status: Acute (3) Hypertension Priority: Secondary Status: Chronic (4) History of stroke Priority: Secondary Status: Chronic (5) COPD (chronic obstructive pulmonary disease) Priority: Secondary Status: Acute Prognosis: Good Aware of Diagnosis: Patient, Family Aware of Prognosis: Patient, Family - Transfer Medications Prescriptions: Doxycycline 100 mg PO BID 3 Days #6 capsule Tramadol HCl [Ultram] 50 - 100 mg PO QID PRN 3 Days #12 tablet PRN Reason: Pain Home Medications: Aspirin 81 mg PO DAILY #30 tab.chew 05/20/16 [Rx] Acetaminophen [Tylenol] 500 mg PO Q6H PRN 08/26/16 [History] Primidone [Mysoline] 50 mg PO BID 08/26/16 [History] Theophylline Anhydrous [Curt-24] 100 mg PO DAILY 10/04/16 [History] Docusate [Colace] 100 mg PO BID PRN 11/02/16 [History] Roflumilast [Daliresp] 500 mcg PO DAILY 11/02/16 [History] Buspirone HCl [Buspar] 15 mg PO BID 02/28/17 [History] GuaiFENesin ER [Mucinex] 600 mg PO Q12H PRN 02/28/17 [History] Calcium Carbonate [Calcium] 600 mg PO BIDWM 05/27/17 [History] Furosemide [Lasix] 20 mg PO DAILY PRN 05/27/17 [History] Lovastatin 40 mg PO HS 05/27/17 [History] Sertraline [Zoloft] 50 mg PO DAILY 05/27/17 [History] Tiotropium [place] [Spiriva Respimat] 2 puff IH DAILY 05/27/17 [History] Metoprolol [Lopressor] 25 mg PO BID 06/06/17 [History] Ipratropium/Albuterol Neb [Duoneb] 3 ml IH QIDR inhsol 06/17/17 [Rx] Mometasone/Formoterol [Dulera 100 Mcg/5 Mcg Inhaler] 2 puff IH BID 09/02/17 [ History] Omeprazole [PriLOSEC] 20 mg PO DAILY 09/02/17 [History] Simethicone [Gas Relief] 180 mg PO TID PRN 09/02/17 [History] predniSONE [PredniSONE] 20 mg PO DAILY 09/02/17 [History] Doxycycline 100 mg PO BID 3 Days #6 capsule 09/05/17 [Rx] Tramadol HCl [Ultram] 50 - 100 mg PO QID PRN 3 Days #12 tablet 09/05/17 [Rx] Allergies/Adverse Reactions: 3 Allergy/AdvReac Type Severity Reaction Status Date / Time azithromycin [From Zithromax] AdvReac See Verified 05/27/17 18:37 Comments hydrochlorothiazide AdvReac Difficulty Verified 05/27/17 18:37 Breathing ibuprofen [From Motrin] AdvReac Gastrointestinal Verified 05/27/17 18:37 Upset levofloxacin [From Levaquin] AdvReac See Verified 05/27/17 18:37 Comments - Respiratory Orders Oxygen / L per min (2LPM) Smoking Cessation: Smoking cessation has been advised. For more information, call the [place] Tobacco Quit Line at 5-175-RPBD-NOW. - Advance Directives Code Status: Full Code - Mobility Orders Ambulate - Rehabiliation Orders Rehab Potential: Good Rehab Orders: Evaluation for Physical Therapy, Evaluation for Occupational Therapy - Diet Orders Regular CERTIFICATION: I certify that the transfer of the above named patient to an Extended Care Facility is necessary for the continuing treatment of the diagnosis listed. The above information is true and accurate reflection of patient's current condition. Confidential - Redisclosure prohibited without a patient's written consent.
== END 2017-09-05 15:23 | DRG 195 ==
LOC: 3BNU 10:06 → EMEROO 10:06 → 3BNU 13:17
PROVIDERS: ADMIT Family Medicine; ATTEND Family Medicine

== ENCOUNTER 2018-01-10 15:38 | Inpatient (IN) ==
[2018-01-10] MEDS ORDERED: *HR* OxyCODONE Immed Rel 5 MG TABLET PO STA (16:11)
[2018-01-10] MEDS ORDERED: *HR* HYDROcodone/Acet 10/325 mg TABLET PO ONE (16:34)
--- NOTE | 2018-01-10 16:50 | Emergency Department Note ---
Disposition Clinical Impression: Compression fracture Compression fracture of lumbar spine, non-traumatic Qualifiers: Encounter type: subsequent encounter Lumbar vertebra fracture level: L4 Fracture healing: with routine healing Qualified Code(s): M48.56XD - Collapsed vertebra, not elsewhere classified, lumbar region, subsequent encounter for fracture with routine healing Pneumonia Qualifiers: Pneumonia type: due to unspecified organism Laterality: unspecified laterality Lung location: unspecified part of lung Qualified Code(s): J18.9 - Pneumonia, unspecified organism Disposition: Still a Patient Condition: Fair Referrals: NONE,PCP [Primary Care Provider] - Forms: ED Satisfaction Letter Back Pain HPI - General Chief Complaint: ED Back Pain/Injury Stated Complaint: back pain Time Seen by Provider: 01/10/18 15:43 Source: patient, EMS Mode of arrival: EMS Limitations: no limitations Nursing Notes Reviewed: Yes Vital Signs Reviewed: Yes - History of Present Illness HPI Narrative: 67-year-old male history of remote compression fracture presents emergency department with back pain. He is complaining of worsening pain today after taking a shower and heard a pop. He had removed his back brace at that time. Typically the pain is worse upon sitting from standing. Reports pain in the mid and lower back. Over the past month he has had required surgery for compression fracture and was then told that he had a new one which has been surgically repaired with Dr. Patterson. He has been noncompliant with physical therapy as well as his pain management and back brace while at [facility]. He typically takes 10 mg Broughton twice a day for pain as well as tramadol. He has not taken any for the past 2 days as the pain has been more tolerable. Today he had 2 hard stool bowel movements. He denies any incontinence. Denies any new injury or trauma. Denies any fall. He reports some tingling in the left leg which is chronic and nothing new. He denies any new weakness. He does not take any anticoagulants. No history of malignancy. Pt Subjective Complaint: back pain - Related Data Home Medications Medication Instructions Recorded Confirmed Acetaminophen [Tylenol] 500 mg PO Q6H PRN 08/26/16 12/16/17 Primidone [Mysoline] 50 mg PO BID 08/26/16 12/16/17 Theophylline Anhydrous [Curt-24] 100 mg PO DAILY 10/04/16 12/16/17 Docusate [Colace] 100 mg PO BID PRN 11/02/16 12/16/17 Roflumilast [Daliresp] 500 mcg PO DAILY 11/02/16 12/16/17 Buspirone HCl [Buspar] 15 mg PO BID 02/28/17 12/16/17 GuaiFENesin ER [Mucinex] 600 mg PO Q12H PRN 02/28/17 12/16/17 Calcium Carbonate [Calcium] 600 mg PO BIDWM 05/27/17 12/16/17 Lovastatin 40 mg PO HS 05/27/17 12/16/17 Sertraline [Zoloft] 50 mg PO DAILY 05/27/17 12/16/17 Tiotropium [place] [Spiriva 2 puff IH DAILY 05/27/17 12/16/17 Respimat] Metoprolol [Lopressor] 25 mg PO BID 06/06/17 12/16/17 Mometasone/Formoterol [Dulera 100 2 puff IH BID 09/02/17 12/16/17 Mcg/5 Mcg Inhaler] Omeprazole [PriLOSEC] 20 mg PO DAILY 09/02/17 12/16/17 Simethicone [Gas Relief] 180 mg PO Q4H PRN 09/02/17 12/16/17 predniSONE [PredniSONE] 20 mg PO DAILY 09/02/17 12/16/17 Calcitonin,[place],Synthetic 1 spr NS DAILY 12/16/17 12/16/17 [Calcitonin-[place]] GuaiFENesin Liq [Robitussin Liq] 200 mg PO Q6HR PRN 12/16/17 12/16/17 HYDROcodone/Acet 5/325 mg [[place] 1 tab PO Q6H PRN 12/16/17 12/16/17 5-325 mg] Ipratropium/Albuterol Neb [Duoneb] 3 ml IH QIDR PRN 12/16/17 12/16/17 Tramadol HCl [Ultram] 50 - 100 mg PO QID PRN 12/16/17 12/16/17 Previous Rx's Medication Instructions Recorded Aspirin 81 mg PO DAILY #30 tab.chew 05/20/16 Lidocaine Patch [Lidoderm 5% patch] 1 each TP DAILY PRN #10 adh..patch 09/10/17 Allergies Allergy/AdvReac Type Severity Reaction Status Date / Time azithromycin [From Zithromax] AdvReac See Verified 12/16/17 10:00 Comments hydrochlorothiazide AdvReac Difficulty Verified 12/16/17 10:00 Breathing ibuprofen [From Motrin] AdvReac Gastrointestinal Verified 12/16/17 10:00 Upset levofloxacin [From Levaquin] AdvReac See Verified 12/16/17 10:00 Comments All systems ED: reviewed and negative except as stated. Review of Systems: As Per HPI Constitutional: Denies: fever, chills, weakness ENT ED: Denies: congestion Cardiovascular: Denies: chest pain Respiratory: Denies: cough, dyspnea Gastrointestinal: Denies: abdominal pain, nausea, vomiting Musculoskeletal: Reports: back pain. Denies: neck pain, arthralgia Integumentary: Denies: rash, abrasion Neurological: Reports: numbness, paresthesias. Denies: weakness Past Medical History - Past Medical History Attestation: Yes The following information was validated with the patient. Source: patient Medical history: Reports: atrial fibrillation, COPD, CVA, DVT, hyperlipidemia, hypertension, kidney stones Surgical history: Reports: tonsilectomy, other Psychiatric history: Reports: anxiety, depression - Social History Smoking Status: Former smoker Smokeless Tobacco Status: No Alcohol use: Reports: none Drug use: Reports: none Physical Exam - General Limitations: no limitations General appearance: alert, in no apparent distress - Head Head exam: atraumatic, normocephalic, normal inspection - Chest Chest inspection: Present: normal inspection, symmetric chest wall rise - Respiratory Respiratory exam: Present: normal lung sounds bilaterally, wheezes - Cardiovascular Cardiovascular exam: Present: regular rate, normal rhythm, normal heart sounds - Abdominal Exam Abdominal exam: Present: soft, Non-Tender. Absent: tenderness, distention, guarding, rebound, rigidity - Back Exam Back exam: Present: tenderness (Lower lumbar), vertebral tenderness, straight leg raise (L). Absent: full ROM (Limited receptive peritoneal), CVA tenderness (R), CVA tenderness (L), paraspinal tenderness - Neurological Exam Neurological exam: Present: alert, oriented X3 - Expanded Neurological Exam Motor strength - LUE: 5/5 Motor strength - RUE: 5/5 Motor strength - LLE: 4/5 Motor strength - RLE: 4/5 - Psychiatric Psychiatric exam: Present: normal affect, normal mood - Skin Skin exam: Present: warm, dry, intact, normal color. Absent: rash, cyanosis, diaphoresis Course Course Narrative: Patient presents with atraumatic back pain with chronic compression fracture. Denies any red flags such as incontinence, no weakness or anticoagulation use. He has some minimal weakness to bilateral lower extremities that he reports is not new. Sensation is intact bilaterally. Low suspicion for cauda equina at this time however with the new pain and midline tenderness will evaluate with CT scan. Will give Broughton for pain. - Reevaluation(s) Reevaluation #1: CT scan shows worsening compression fracture to L1 and L2. Patient is still unable to sit up due to the pain. The CT also has incidental findings of right lower lobe pneumonia as well as a kidney stone. After further interrogation patient reports recent cough for past 4 days with some shortness of breath. Patient has history of COPD. He currently resides at nursing facility for his rehab. At this time recommend admission for the suspected pneumonia as well as pain control for his worsening compression fracture. Further workup has been initiated including laboratory workup EKG chest x-ray and initiation of antibiotics. Patient will be placed on level Floxin and cefepime. Patients in agreement with this plan. Impression is worsening compression fracture, pneumonia and kidney stone. Patient has been signed out to nighttime physician is Dr. Diaz and Dr. Garcia pending laboratory results and final disposition. Please see note for further details. Time: 19:20 Vital Signs Temperature 98.2 F 01/10/18 15:42 Pulse Rate 70 01/10/18 15:42 Respiratory Rate 18 01/10/18 15:42 Blood Pressure 144/88 01/10/18 15:42 O2 Sat by Pulse Oximetry 98 01/10/18 15:42 Temperature 98.2 F 01/10/18 15:42 Pulse Rate 50 01/10/18 18:59 Respiratory Rate 20 01/10/18 18:59 Blood Pressure 158/83 01/10/18 18:59 O2 Sat by Pulse Oximetry 99 01/10/18 18:59 Oxygen Delivery Oxygen Delivery Room Air Back Pain/Injury - MDM Narrative Medical decision making narrative: Patient was discussed with my attending physician who agrees with ED management and final disposition. They independently evaluated the patient. Please refer to their attestation to this encounter for additional information. This note was generated by Dragon voice recognition software and as a result grammatical or spelling errors may occur using this program. - Medical Records Medical records reviewed: Yes I reviewed the patient's medical records. - Radiology Data Radiology results reviewed: Yes I reviewed the patient's radiology results. Lumbar Spine CT 01/10/18 16:17 IMPRESSION: L1-L2 compression fractures of indeterminate age but new since September 11, 2017. Interval progression of loss of height of the L4 compression fracture which was present on the prior study. Right lower lobe consolidation and small right pleural effusion. Correlation for pneumonia is recommended. Follow-up to resolution is recommended. 3 mm proximal left ureteral stone with mild prominence of the proximal left ureter. D/ / Anabel Caro Cha, MD / Anabel Caro Cha, MD Interpreting Provider: Anabel Caro Cha, MD Thoracic Spine CT 01/10/18 16:17 IMPRESSION: L1-L2 compression fractures of indeterminate age but new since September 11, 2017. Interval progression of loss of height of the L4 compression fracture which was present on the prior study. Right lower lobe consolidation and small right pleural effusion. Correlation for pneumonia is recommended. Follow-up to resolution is recommended. 3 mm proximal left ureteral stone with mild prominence of the proximal left ureter. D/ / Anabel Caro Cha, MD / Anabel Caro Cha, MD Interpreting Provider: Anabel Caro Cha, MD [facility]. - [facility].B.A.[facility]. Situation: Demographics, MOA Background: Presenting Complaint, Relevant PMH, Meds, & Allergies Assessment: Vital Signs, Course and respsone to treatment, Exam Concerns, Patient/Family Expectation, Pertinant Lab Results, Outstanding Labs Recommendation: Barrier(s) to disposition, Recommendation based on pending studies, treatments, or consults [facility].B.A.R. Report Given to: Dr. Diaz and Dr. Garcia SElzaBElzaASarah Repor Time: 19:00
[2018-01-10] MEDS ORDERED: Cefepime HCl 2,000 MG in Water for inj. (sterile) 20 ML 20 ML IVP ONE (19:18)
--- NOTE | 2018-01-10 19:21 | Emergency Department Note ---
Disposition Clinical Impression: Compression fracture Compression fracture of lumbar spine, non-traumatic Qualifiers: Encounter type: subsequent encounter Lumbar vertebra fracture level: L4 Fracture healing: with routine healing Qualified Code(s): M48.56XD - Collapsed vertebra, not elsewhere classified, lumbar region, subsequent encounter for fracture with routine healing Pneumonia Qualifiers: Pneumonia type: due to unspecified organism Laterality: unspecified laterality Lung location: unspecified part of lung Qualified Code(s): J18.9 - Pneumonia, unspecified organism Disposition: Admitted As Inpatient Condition: Fair Referrals: NONE,PCP [Primary Care Provider] - Forms: ED Satisfaction Letter General Adult HPI - General Chief complaint: ED Back Pain/Injury Stated complaint: back pain Time Seen by Provider: 01/10/18 15:43 Source: patient, EMS Mode of arrival: EMS Limitations: no limitations - History of Present Illness Pain Scale: 3 - Related Data Home Medications Medication Instructions Recorded Confirmed Acetaminophen [Tylenol] 500 mg PO Q6H PRN 08/26/16 12/16/17 Primidone [Mysoline] 50 mg PO BID 08/26/16 12/16/17 Theophylline Anhydrous [Curt-24] 100 mg PO DAILY 10/04/16 12/16/17 Docusate [Colace] 100 mg PO BID PRN 11/02/16 12/16/17 Roflumilast [Daliresp] 500 mcg PO DAILY 11/02/16 12/16/17 Buspirone HCl [Buspar] 15 mg PO BID 02/28/17 12/16/17 GuaiFENesin ER [Mucinex] 600 mg PO Q12H PRN 02/28/17 12/16/17 Calcium Carbonate [Calcium] 600 mg PO BIDWM 05/27/17 12/16/17 Lovastatin 40 mg PO HS 05/27/17 12/16/17 Sertraline [Zoloft] 50 mg PO DAILY 05/27/17 12/16/17 Tiotropium [place] [Spiriva 2 puff IH DAILY 05/27/17 12/16/17 Respimat] Metoprolol [Lopressor] 25 mg PO BID 06/06/17 12/16/17 Mometasone/Formoterol [Dulera 100 2 puff IH BID 09/02/17 12/16/17 Mcg/5 Mcg Inhaler] Omeprazole [PriLOSEC] 20 mg PO DAILY 09/02/17 12/16/17 Simethicone [Gas Relief] 180 mg PO Q4H PRN 09/02/17 12/16/17 predniSONE [PredniSONE] 20 mg PO DAILY 09/02/17 12/16/17 Calcitonin,[place],Synthetic 1 spr NS DAILY 12/16/17 12/16/17 [Calcitonin-[place]] GuaiFENesin Liq [Robitussin Liq] 200 mg PO Q6HR PRN 12/16/17 12/16/17 HYDROcodone/Acet 5/325 mg [[place] 1 tab PO Q6H PRN 12/16/17 12/16/17 5-325 mg] Ipratropium/Albuterol Neb [Duoneb] 3 ml IH QIDR PRN 12/16/17 12/16/17 Tramadol HCl [Ultram] 50 - 100 mg PO QID PRN 12/16/17 12/16/17 Previous Rx's Medication Instructions Recorded Aspirin 81 mg PO DAILY #30 tab.chew 05/20/16 Lidocaine Patch [Lidoderm 5% patch] 1 each TP DAILY PRN #10 adh..patch 09/10/17 Allergies Allergy/AdvReac Type Severity Reaction Status Date / Time azithromycin [From Zithromax] AdvReac See Verified 12/16/17 10:00 Comments hydrochlorothiazide AdvReac Difficulty Verified 12/16/17 10:00 Breathing ibuprofen [From Motrin] AdvReac Gastrointestinal Verified 12/16/17 10:00 Upset levofloxacin [From Levaquin] AdvReac See Verified 12/16/17 10:00 Comments Constitutional: Denies: fever, chills, weakness ENT ED: Denies: congestion Cardiovascular: Denies: chest pain Respiratory: Denies: cough, dyspnea Gastrointestinal: Denies: abdominal pain, nausea, vomiting Musculoskeletal: Reports: back pain. Denies: neck pain, arthralgia Integumentary: Denies: rash, abrasion Neurological: Reports: numbness, paresthesias. Denies: weakness Past Medical History - Past Medical History Medical history: Reports: atrial fibrillation, COPD, CVA, DVT, hyperlipidemia, hypertension, kidney stones Surgical history: Reports: tonsilectomy, other Psychiatric history: Reports: anxiety, depression - Social History Smoking Status: Former smoker Smokeless Tobacco Status: No Alcohol use: Reports: none Drug use: Reports: none Physical Exam - General Limitations: no limitations General appearance: alert, in no apparent distress Course Vital Signs Temperature 98.2 F 01/10/18 15:42 Pulse Rate 70 01/10/18 15:42 Respiratory Rate 18 01/10/18 15:42 Blood Pressure 144/88 01/10/18 15:42 O2 Sat by Pulse Oximetry 98 01/10/18 15:42 Temperature 98.2 F 01/10/18 15:42 Pulse Rate 50 01/10/18 18:59 Respiratory Rate 20 01/10/18 18:59 Blood Pressure 158/83 01/10/18 18:59 O2 Sat by Pulse Oximetry 99 01/10/18 18:59 Oxygen Delivery Oxygen Delivery Room Air Attestation Statement - Attestation Attestation: Resident Attestation: I examined this patient and my medical decision making was reviewed with the Resident Physician. I agree with the documented findings, disposition and treatment plan as described except to the extent set forth below. We independently had [id number] contact with the patient Patient with a recent history of lumbar compression fractures. Patient has been seen by Dr. Patterson and had kyphoplasty. Patient here today for evaluation of worsening back pain. He was taking a shower and felt a pop. Patient has not been taking his pain medications at home. He will undergo analgesic therapy as well as further investigation with CT scan. Awake alert and oriented times acute distress. Patient does have significant amounts of pain when trying to sit up. He has tenderness over the lower lumbar as well as midthoracic spine. No step-off or deformity. Neurovascularly intact to the lower extremities he does have chronic weakness to the left leg. No numbness and tingling in the groin. Skin no difficulty with urination. CT scan resulted showing concern for pneumonia as well as kidney stone. Incidental findings. Patient does have an L1 and L2 compression fracture that are new from last study performed in August. The patient L1 fracture is new with 10% height loss. The L2 compression fracture he states was treated but the 40% height loss is a progression of the prior disease. Patient is unable to sit up in bed. Patient has had cough for the last several days it is turned productive in nature. He believes that he has had kidney stones in the past but has never received official diagnosis. Patient will be treated for all of the above. Patient will require admission secondary to being from a residential, having uncontrolled back pain, and inability to sit up in bed alone ambulate. Please see resident note for further details and disposition. A full workup has been ordered in regards to pneumonia and kidney stones. The pending results and admission is been signed out to Dr. Garcia.
[2018-01-10 20:05] LABS: Basophils % 0.2 %; Eosinophils % 0.4 %; Hematocrit 40.6 % (37.5-50.1); Hemoglobin 12.5 g/dL (12.9-16.9); Immature Granulocytes % 0.5 % (0-4); Lymphocytes # 0.8 K/mcL (0.6-4.6); Lymphocytes % 10.1 %; Mean Corpuscular HGB Conc 30.8 g/dL (31.6-35.5); Mean Corpuscular Hemoglobin 28.9 pg (28.0-33.3); Mean Corpuscular Volume 93.8 fL (83.0-100.0); Mean Platelet Volume 9.8 fL (9.4-12.4); Monocytes # 0.7 K/mcL (0.0-1.3); Monocytes % 8.7 %; Neutrophils # 6.5 K/mcL (1.6-8.9); Platelet Count 192 K/mcL (140-400); Red Blood Count 4.33 M/mcL (4.19-5.50); Red Cell Distribution Width 13.6 % (11.5-14.5); Segmented Neutrophils % 80.1 %
[2018-01-10] MEDS: Levofloxacin 750 MG/150 ML 750 MG/150 ML BAG IVPB ONE ×2 (20:11→20:14)
[2018-01-10] MEDS ORDERED: Azithromycin 250 MG TABLET PO ONE (20:21)
[2018-01-10 20:27] LABS: Alanine Aminotransferase 24 Units/L (7-52); Albumin 3.3 g/dL (3.5-5.7); Albumin/Globulin Ratio 1.2 (1.1-2.2); Alkaline Phosphatase 79 Units/L (34-104); Aspartate Amino Transferase 16 Units/L (13-39); BUN/Creatinine Ratio 21 (6-26); Bilirubin,Direct 0.1 mg/dL (0.0-0.2); Bilirubin,Indirect 0.2 mg/dL (0.0-1.2); Bilirubin,Total 0.3 mg/dL (0.3-1.0); Blood Urea Nitrogen 22 mg/dL (8-23); Calcium 8.4 mg/dL (8.6-10.3); Carbon Dioxide 31 mEq/L (23-29); Chloride 105 mEq/L (98-107); Globulin 2.7 g/dL (2.4-3.5); Glucose 115 mg/dL (70-105); Osmolality,Calculated 292 (280-300); Potassium 4.3 mEq/L (3.5-5.1); Sodium 139 mEq/L (136-145); Troponin I 0.03 ng/mL (< 0.04); eGFR For Non-African Americans > 60 (> 60)
--- NOTE | 2018-01-10 20:27 | Emergency Department Note ---
Disposition Clinical Impression: Compression fracture, Left ureteral calculus Compression fracture of lumbar spine, non-traumatic Qualifiers: Encounter type: subsequent encounter Lumbar vertebra fracture level: L4 Fracture healing: with routine healing Qualified Code(s): M48.56XD - Collapsed vertebra, not elsewhere classified, lumbar region, subsequent encounter for fracture with routine healing Pneumonia Qualifiers: Pneumonia type: due to unspecified organism Laterality: unspecified laterality Lung location: unspecified part of lung Qualified Code(s): J18.9 - Pneumonia, unspecified organism Disposition: Admitted As Inpatient Condition: Fair General Adult HPI - General Chief complaint: ED Back Pain/Injury Stated complaint: back pain Time Seen by Provider: 01/10/18 15:43 Source: patient, EMS Mode of arrival: EMS Limitations: no limitations Nursing Notes Reviewed: Yes Vital Signs Reviewed: Yes - History of Present Illness HPI Narrative: 67-year-old male presents emergency department with concern for worsening back pain. Patient nursing facility patient. Reports no pain in the thoracic and lumbar spine more central in nature. History of having compression fractures. Patient denies any cough, sputum production, shortness of breath, nausea, vomiting, chest pain. Refer to previous notes of the history of present illness, physical exam, medical decision-making from Dr. Garnica and Dr. Laughlin as these were signouts. Pain Scale: 3 - Related Data Home Medications Medication Instructions Recorded Confirmed Acetaminophen [Tylenol] 500 mg PO Q6H PRN 08/26/16 01/10/18 Primidone [Mysoline] 50 mg PO BID 08/26/16 01/10/18 Theophylline Anhydrous [Curt-24] 100 mg PO DAILY 10/04/16 01/10/18 Docusate [Colace] 100 mg PO BID PRN 11/02/16 01/10/18 Roflumilast [Daliresp] 500 mcg PO DAILY 11/02/16 01/10/18 Buspirone HCl [Buspar] 15 mg PO BID 02/28/17 01/10/18 GuaiFENesin ER [Mucinex] 600 mg PO Q12H PRN 02/28/17 01/10/18 Calcium Carbonate [Calcium] 600 mg PO BIDWM 05/27/17 01/10/18 Lovastatin 40 mg PO HS 05/27/17 01/10/18 Sertraline [Zoloft] 50 mg PO DAILY 05/27/17 01/10/18 Tiotropium [place] [Spiriva 2 puff IH DAILY 05/27/17 01/10/18 Respimat] Metoprolol [Lopressor] 25 mg PO BID 06/06/17 01/10/18 Mometasone/Formoterol [Dulera 100 2 puff IH BID 09/02/17 01/10/18 Mcg/5 Mcg Inhaler] Omeprazole [PriLOSEC] 20 mg PO DAILY 09/02/17 01/10/18 Simethicone [Gas Relief] 180 mg PO Q4H PRN 09/02/17 01/10/18 predniSONE [PredniSONE] 20 mg PO DAILY 09/02/17 01/10/18 Calcitonin,[place],Synthetic 1 spr NS DAILY 12/16/17 01/10/18 [Calcitonin-Jack] GuaiFENesin Liq [Robitussin Liq] 200 mg PO Q6HR PRN 12/16/17 01/10/18 HYDROcodone/Acet 5/325 mg [[place] 1 tab PO Q6H PRN 12/16/17 01/10/18 5-325 mg] Ipratropium/Albuterol Neb [Duoneb] 3 ml IH QIDR PRN 12/16/17 01/10/18 Tramadol HCl [Ultram] 50 - 100 mg PO QID PRN 12/16/17 01/10/18 HYDROcodone/Acet 5/325 mg [[place] 1 tab PO Q4H PRN 01/10/18 01/10/18 5-325 mg] Ipratropium/Albuterol Neb [Duoneb] 3 ml IH Q4HR PRN 01/10/18 01/10/18 Previous Rx's Medication Instructions Recorded Aspirin 81 mg PO DAILY #30 tab.chew 05/20/16 Allergies Allergy/AdvReac Type Severity Reaction Status Date / Time azithromycin [From Zithromax] AdvReac See Verified 12/16/17 10:00 Comments hydrochlorothiazide AdvReac Difficulty Verified 12/16/17 10:00 Breathing ibuprofen [From Motrin] AdvReac Gastrointestinal Verified 12/16/17 10:00 Upset levofloxacin [From Levaquin] AdvReac See Verified 12/16/17 10:00 Comments All systems ED: reviewed and negative except as stated. Review of Systems: As Per HPI Constitutional: Denies: fever, chills, weakness ENT ED: Denies: congestion Cardiovascular: Denies: chest pain Respiratory: Denies: cough, dyspnea Gastrointestinal: Denies: abdominal pain, nausea, vomiting Musculoskeletal: Reports: back pain. Denies: neck pain, arthralgia Integumentary: Denies: rash, abrasion Neurological: Reports: numbness, paresthesias. Denies: weakness Past Medical History - Past Medical History Medical history: Reports: atrial fibrillation, COPD, CVA, DVT, hyperlipidemia, hypertension, kidney stones Surgical history: Reports: tonsilectomy, other Psychiatric history: Reports: anxiety, depression - Social History Smoking Status: Former smoker Smokeless Tobacco Status: No Alcohol use: Reports: none Drug use: Reports: none Physical Exam - General Limitations: no limitations General appearance: alert, in no apparent distress Course Vital Signs Temperature 98.2 F 01/10/18 15:42 Pulse Rate 70 01/10/18 15:42 Respiratory Rate 18 01/10/18 15:42 Blood Pressure 144/88 01/10/18 15:42 O2 Sat by Pulse Oximetry 98 01/10/18 15:42 Temperature 98.2 F 01/10/18 15:42 Pulse Rate 79 01/10/18 22:29 Respiratory Rate 18 01/10/18 22:29 Blood Pressure 173/92 01/10/18 22:29 O2 Sat by Pulse Oximetry 98 01/10/18 22:29 Oxygen Delivery Oxygen Delivery Room Air Medical Decision Making - MDM Narrative Medical decision making narrative: CT scan of the thoracic spine reveals concern for right-sided pleural effusion and pneumonia of the right lower lobe. Does reveal interval progression of loss of height of the L4 compression fracture as well as new L1-L2 compression fractures. Patient does not havea leukocytosis. Not complaining of shortness of breath, cough, fever. However, patient states that he has had pneumonias when he has not had any symptoms before. Patient was given cefepime. We have also provided oral azithromycin. Patient reports that he thinks azithromycin IV has made him hallucinate in the past. Not an absolute contraindication to provide this medication. Patient admitted to the hospitalist who agrees to accept. Patient was in agreement with the plan as well. Still hemodynamically stable AND oxygen saturation 99% on 2 L via nasal cannula. Lumbar Spine CT 01/10/18 16:17 IMPRESSION: L1-L2 compression fractures of indeterminate age but new since September 11, 2017. Interval progression of loss of height of the L4 compression fracture which was present on the prior study. Right lower lobe consolidation and small right pleural effusion. Correlation for pneumonia is recommended. Follow-up to resolution is recommended. 3 mm proximal left ureteral stone with mild prominence of the proximal left ureter. D/ / Anabel Caro Cha, MD / Anabel Caro Cha, MD Interpreting Provider: Anabel Caro Cha, MD Thoracic Spine CT 01/10/18 16:17 IMPRESSION: L1-L2 compression fractures of indeterminate age but new since September 11, 2017. Interval progression of loss of height of the L4 compression fracture which was present on the prior study. Right lower lobe consolidation and small right pleural effusion. Correlation for pneumonia is recommended. Follow-up to resolution is recommended. 3 mm proximal left ureteral stone with mild prominence of the proximal left ureter. D/ / Anabel Caro Cha, MD / Anabel Caro Cha, MD Interpreting Provider: Anabel Caro Cha, MD Chest X-Ray 01/10/18 19:19 IMPRESSION: Bibasilar lung aeration overall improved from August 2017. D/ / Mark Maguire MD / Mark Maguire MD Interpreting Provider: Mark Maguire MD - Lab Data Result diagrams: 01/10/18 19:36 01/10/18 19:36 Lab Results 01/10/18 01/10/18 01/10/18 Range/Units 19:36 19:36 19:36 WBC 8.1 (4.3-11.1) K/mcL RBC 4.33 (4.19-5.50) M/mcL Hgb 12.5 L (12.9-16.9) g/dL Hct 40.6 (37.5-50.1) % MCV 93.8 (83.0-100.0) fL MCH 28.9 (28.0-33.3) pg MCHC 30.8 L (31.6-35.5) g/dL RDW 13.6 (11.5-14.5) % Plt Count 192 (140-400) K/mcL MPV 9.8 (9.4-12.4) fL Immature Gran % 0.5 (0-4) % Seg Neutrophils % 80.1 % Lymphocytes % 10.1 % Monocytes % 8.7 % Eosinophils % 0.4 % Basophils % 0.2 % Neutrophils # 6.5 (1.6-8.9) K/mcL Lymphocytes # 0.8 (0.6-4.6) K/mcL Monocytes # 0.7 (0.0-1.3) K/mcL Eosinophils # 0.0 (0.0-0.6) K/mcL Basophils # 0.0 (0.0-0.2) K/mcL Sodium 139 (136-145) mEq/L Potassium 4.3 (3.5-5.1) mEq/L Chloride 105 (98-107) mEq/L Carbon Dioxide 31 H (23-29) mEq/L BUN 22 (8-23) mg/dL Creatinine 1.05 (0.70-1.30) mg/dL Est GFR ( Amer) > 60 (> 60) Est GFR (Non-Af Amer) > 60 (> 60) BUN/Creatinine Ratio 21 (6-26) Glucose 115 H (70-105) mg/dL Calculated Osmolality 292 (280-300) Calcium 8.4 L (8.6-10.3) mg/dL Total Bilirubin 0.3 (0.3-1.0) mg/dL Direct Bilirubin 0.1 (0.0-0.2) mg/dL Indirect Bilirubin 0.2 (0.0-1.2) mg/dL AST 16 (13-39) Units/L ALT 24 (7-52) Units/L Alkaline Phosphatase 79 (34-104) Units/L Troponin I 0.03 (< 0.04) ng/mL B-Natriuretic Peptide 242 H (Less than 100) pg/mL Serum Total Protein 6.0 L (6.4-8.9) g/dL Albumin 3.3 L (3.5-5.7) g/dL Globulin 2.7 (2.4-3.5) g/dL Albumin/Globulin Ratio 1.2 (1.1-2.2) Urine Color (Yellow) Urine Clarity (Clear) Urine pH (5.0-8.0) pH Units Ur Specific [place] (1.010-1.025) Urine Protein (Neg-Trace) mg/dL Urine Glucose (UA) (Normal) mg/dL Urine Ketones (Negative) mg/dL Urine Blood (Negative) Urine Nitrite (Negative) Urine Bilirubin (Negative) Urine Urobilinogen (Normal) mg/dL Ur Leukocyte Esterase (Negative) Urine Microscopic RBC (0-3) per hpf Urine Microscopic WBC (0-3) per hpf Ur Squamous Epith Cells (None-Few) per lpf Urine Bacteria (None-Few) per hpf Hyaline Casts (None-Few) per lpf Ur Culture Indicated? (NO) 01/10/18 Range/Units 20:13 WBC (4.3-11.1) K/mcL RBC (4.19-5.50) M/mcL Hgb (12.9-16.9) g/dL Hct (37.5-50.1) % MCV (83.0-100.0) fL MCH (28.0-33.3) pg MCHC (31.6-35.5) g/dL RDW (11.5-14.5) % Plt Count (140-400) K/mcL MPV (9.4-12.4) fL Immature Gran % (0-4) % Seg Neutrophils % % Lymphocytes % % Monocytes % % Eosinophils % % Basophils % % Neutrophils # (1.6-8.9) K/mcL Lymphocytes # (0.6-4.6) K/mcL Monocytes # (0.0-1.3) K/mcL Eosinophils # (0.0-0.6) K/mcL Basophils # (0.0-0.2) K/mcL Sodium (136-145) mEq/L Potassium (3.5-5.1) mEq/L Chloride (98-107) mEq/L Carbon Dioxide (23-29) mEq/L BUN (8-23) mg/dL Creatinine (0.70-1.30) mg/dL Est GFR ( Amer) (> 60) Est GFR (Non-Af Amer) (> 60) BUN/Creatinine Ratio (6-26) Glucose (70-105) mg/dL Calculated Osmolality (280-300) Calcium (8.6-10.3) mg/dL Total Bilirubin (0.3-1.0) mg/dL Direct Bilirubin (0.0-0.2) mg/dL Indirect Bilirubin (0.0-1.2) mg/dL AST (13-39) Units/L ALT (7-52) Units/L Alkaline Phosphatase (34-104) Units/L Troponin I (< 0.04) ng/mL B-Natriuretic Peptide (Less than 100) pg/mL Serum Total Protein (6.4-8.9) g/dL Albumin (3.5-5.7) g/dL Globulin (2.4-3.5) g/dL Albumin/Globulin Ratio (1.1-2.2) Urine Color Yellow (Yellow) Urine Clarity Clear (Clear) Urine pH 6.5 (5.0-8.0) pH Units Ur Specific [place] 1.029 H (1.010-1.025) Urine Protein Negative (Neg-Trace) mg/dL Urine Glucose (UA) Normal (Normal) mg/dL Urine Ketones Negative (Negative) mg/dL Urine Blood Large H (Negative) Urine Nitrite Negative (Negative) Urine Bilirubin Negative (Negative) Urine Urobilinogen Normal (Normal) mg/dL Ur Leukocyte Esterase Negative (Negative) Urine Microscopic RBC TNTC H (0-3) per hpf Urine Microscopic WBC 0-3 (0-3) per hpf Ur Squamous Epith Cells Many H (None-Few) per lpf Urine Bacteria None Seen (None-Few) per hpf Hyaline Casts None Seen (None-Few) per lpf Ur Culture Indicated? NO (NO)
[2018-01-10 20:31] LABS: Bilirubin,Urine Negative (Negative); Blood,Urine Large (Negative); Clarity,Urine Clear (Clear); Color,Urine Yellow (Yellow); Glucose,Urine (UA) Normal (Normal); Ketones,Urine Negative (Negative); Leukocyte Esterase,Urine Negative (Negative); Nitrite,Urine Negative (Negative); PH,Urine 6.5 pH Units (5.0-8.0); Protein,Urine Negative (Neg-Trace); Specific Gravity,Urine 1.029 (1.010-1.025); Urobilinogen,Urine Normal (Normal)
[2018-01-10 20:35] LABS: Bacteria,Urine None Seen per hpf (None-Few); Hyaline Casts,Urine None Seen per lpf (None-Few); RBC,Urine TNTC per hpf (0-3); Squamous Epithelial Cell,Urine Many per lpf (None-Few); WBC,Urine 0-3 per hpf (0-3)
--- NOTE | 2018-01-10 20:59 | Emergency Department Note ---
Disposition Clinical Impression: Compression fracture, Left ureteral calculus Compression fracture of lumbar spine, non-traumatic Qualifiers: Encounter type: subsequent encounter Lumbar vertebra fracture level: L4 Fracture healing: with routine healing Qualified Code(s): M48.56XD - Collapsed vertebra, not elsewhere classified, lumbar region, subsequent encounter for fracture with routine healing Pneumonia Qualifiers: Pneumonia type: due to unspecified organism Laterality: unspecified laterality Lung location: unspecified part of lung Qualified Code(s): J18.9 - Pneumonia, unspecified organism Disposition: Admitted As Inpatient Condition: Fair Referrals: NONE,PCP [Primary Care Provider] - Forms: ED Satisfaction Letter General Adult HPI - General Chief complaint: ED Back Pain/Injury Stated complaint: back pain Time Seen by Provider: 01/10/18 15:43 Source: patient, EMS Mode of arrival: EMS Limitations: no limitations Nursing Notes Reviewed: Yes Vital Signs Reviewed: Yes - History of Present Illness Pain Scale: 3 - Related Data Home Medications Medication Instructions Recorded Confirmed Acetaminophen [Tylenol] 500 mg PO Q6H PRN 08/26/16 01/10/18 Primidone [Mysoline] 50 mg PO BID 08/26/16 01/10/18 Theophylline Anhydrous [Curt-24] 100 mg PO DAILY 10/04/16 01/10/18 Docusate [Colace] 100 mg PO BID PRN 11/02/16 01/10/18 Roflumilast [Daliresp] 500 mcg PO DAILY 11/02/16 01/10/18 Buspirone HCl [Buspar] 15 mg PO BID 02/28/17 01/10/18 GuaiFENesin ER [Mucinex] 600 mg PO Q12H PRN 02/28/17 01/10/18 Calcium Carbonate [Calcium] 600 mg PO BIDWM 05/27/17 01/10/18 Lovastatin 40 mg PO HS 05/27/17 01/10/18 Sertraline [Zoloft] 50 mg PO DAILY 05/27/17 01/10/18 Tiotropium [place] [Spiriva 2 puff IH DAILY 05/27/17 01/10/18 Respimat] Metoprolol [Lopressor] 25 mg PO BID 06/06/17 01/10/18 Mometasone/Formoterol [Dulera 100 2 puff IH BID 09/02/17 01/10/18 Mcg/5 Mcg Inhaler] Omeprazole [PriLOSEC] 20 mg PO DAILY 09/02/17 01/10/18 Simethicone [Gas Relief] 180 mg PO Q4H PRN 09/02/17 01/10/18 predniSONE [PredniSONE] 20 mg PO DAILY 09/02/17 01/10/18 Calcitonin,[place],Synthetic 1 spr NS DAILY 12/16/17 01/10/18 [Calcitonin-[place]] GuaiFENesin Liq [Robitussin Liq] 200 mg PO Q6HR PRN 12/16/17 01/10/18 HYDROcodone/Acet 5/325 mg [[place] 1 tab PO Q6H PRN 12/16/17 01/10/18 5-325 mg] Ipratropium/Albuterol Neb [Duoneb] 3 ml IH QIDR PRN 12/16/17 01/10/18 Tramadol HCl [Ultram] 50 - 100 mg PO QID PRN 12/16/17 01/10/18 HYDROcodone/Acet 5/325 mg [[place] 1 tab PO Q4H PRN 01/10/18 01/10/18 5-325 mg] Ipratropium/Albuterol Neb [Duoneb] 3 ml IH Q4HR PRN 01/10/18 01/10/18 Previous Rx's Medication Instructions Recorded Aspirin 81 mg PO DAILY #30 tab.chew 05/20/16 Allergies Allergy/AdvReac Type Severity Reaction Status Date / Time azithromycin [From Zithromax] AdvReac See Verified 12/16/17 10:00 Comments hydrochlorothiazide AdvReac Difficulty Verified 12/16/17 10:00 Breathing ibuprofen [From Motrin] AdvReac Gastrointestinal Verified 12/16/17 10:00 Upset levofloxacin [From Levaquin] AdvReac See Verified 12/16/17 10:00 Comments Constitutional: Denies: fever, chills, weakness ENT ED: Denies: congestion Cardiovascular: Denies: chest pain Respiratory: Denies: cough, dyspnea Gastrointestinal: Denies: abdominal pain, nausea, vomiting Musculoskeletal: Reports: back pain. Denies: neck pain, arthralgia Integumentary: Denies: rash, abrasion Neurological: Reports: numbness, paresthesias. Denies: weakness Past Medical History - Past Medical History Medical history: Reports: atrial fibrillation, COPD, CVA, DVT, hyperlipidemia, hypertension, kidney stones Surgical history: Reports: tonsilectomy, other Psychiatric history: Reports: anxiety, depression - Social History Smoking Status: Former smoker Smokeless Tobacco Status: No Alcohol use: Reports: none Drug use: Reports: none Physical Exam - General Limitations: no limitations General appearance: alert, in no apparent distress Course Vital Signs Temperature 98.2 F 01/10/18 15:42 Pulse Rate 70 01/10/18 15:42 Respiratory Rate 18 01/10/18 15:42 Blood Pressure 144/88 01/10/18 15:42 O2 Sat by Pulse Oximetry 98 01/10/18 15:42 Temperature 98.2 F 01/10/18 15:42 Pulse Rate 67 01/10/18 21:18 Respiratory Rate 16 01/10/18 21:18 Blood Pressure 162/109 01/10/18 21:18 O2 Sat by Pulse Oximetry 97 01/10/18 21:18 Oxygen Delivery Oxygen Delivery Nasal Cannula Medical Decision Making - Medical Records Medical records reviewed: Yes I reviewed the patient's medical records. - Lab Data Lab results reviewed: Yes I reviewed the patient's lab results. Result diagrams: 01/10/18 19:36 01/10/18 19:36 Lab Results 01/10/18 01/10/18 01/10/18 Range/Units 19:36 19:36 19:36 WBC 8.1 (4.3-11.1) K/mcL RBC 4.33 (4.19-5.50) M/mcL Hgb 12.5 L (12.9-16.9) g/dL Hct 40.6 (37.5-50.1) % MCV 93.8 (83.0-100.0) fL MCH 28.9 (28.0-33.3) pg MCHC 30.8 L (31.6-35.5) g/dL RDW 13.6 (11.5-14.5) % Plt Count 192 (140-400) K/mcL MPV 9.8 (9.4-12.4) fL Immature Gran % 0.5 (0-4) % Seg Neutrophils % 80.1 % Lymphocytes % 10.1 % Monocytes % 8.7 % Eosinophils % 0.4 % Basophils % 0.2 % Neutrophils # 6.5 (1.6-8.9) K/mcL Lymphocytes # 0.8 (0.6-4.6) K/mcL Monocytes # 0.7 (0.0-1.3) K/mcL Eosinophils # 0.0 (0.0-0.6) K/mcL Basophils # 0.0 (0.0-0.2) K/mcL Sodium 139 (136-145) mEq/L Potassium 4.3 (3.5-5.1) mEq/L Chloride 105 (98-107) mEq/L Carbon Dioxide 31 H (23-29) mEq/L BUN 22 (8-23) mg/dL Creatinine 1.05 (0.70-1.30) mg/dL Est GFR ( Amer) > 60 (> 60) Est GFR (Non-Af Amer) > 60 (> 60) BUN/Creatinine Ratio 21 (6-26) Glucose 115 H (70-105) mg/dL Calculated Osmolality 292 (280-300) Calcium 8.4 L (8.6-10.3) mg/dL Total Bilirubin 0.3 (0.3-1.0) mg/dL Direct Bilirubin 0.1 (0.0-0.2) mg/dL Indirect Bilirubin 0.2 (0.0-1.2) mg/dL AST 16 (13-39) Units/L ALT 24 (7-52) Units/L Alkaline Phosphatase 79 (34-104) Units/L Troponin I 0.03 (< 0.04) ng/mL B-Natriuretic Peptide 242 H (Less than 100) pg/mL Serum Total Protein 6.0 L (6.4-8.9) g/dL Albumin 3.3 L (3.5-5.7) g/dL Globulin 2.7 (2.4-3.5) g/dL Albumin/Globulin Ratio 1.2 (1.1-2.2) Urine Color (Yellow) Urine Clarity (Clear) Urine pH (5.0-8.0) pH Units Ur Specific [place] (1.010-1.025) Urine Protein (Neg-Trace) mg/dL Urine Glucose (UA) (Normal) mg/dL Urine Ketones (Negative) mg/dL Urine Blood (Negative) Urine Nitrite (Negative) Urine Bilirubin (Negative) Urine Urobilinogen (Normal) mg/dL Ur Leukocyte Esterase (Negative) Urine Microscopic RBC (0-3) per hpf Urine Microscopic WBC (0-3) per hpf Ur Squamous Epith Cells (None-Few) per lpf Urine Bacteria (None-Few) per hpf Hyaline Casts (None-Few) per lpf Ur Culture Indicated? (NO) 01/10/18 Range/Units 20:13 WBC (4.3-11.1) K/mcL RBC (4.19-5.50) M/mcL Hgb (12.9-16.9) g/dL Hct (37.5-50.1) % MCV (83.0-100.0) fL MCH (28.0-33.3) pg MCHC (31.6-35.5) g/dL RDW (11.5-14.5) % Plt Count (140-400) K/mcL MPV (9.4-12.4) fL Immature Gran % (0-4) % Seg Neutrophils % % Lymphocytes % % Monocytes % % Eosinophils % % Basophils % % Neutrophils # (1.6-8.9) K/mcL Lymphocytes # (0.6-4.6) K/mcL Monocytes # (0.0-1.3) K/mcL Eosinophils # (0.0-0.6) K/mcL Basophils # (0.0-0.2) K/mcL Sodium (136-145) mEq/L Potassium (3.5-5.1) mEq/L Chloride (98-107) mEq/L Carbon Dioxide (23-29) mEq/L BUN (8-23) mg/dL Creatinine (0.70-1.30) mg/dL Est GFR ( Amer) (> 60) Est GFR (Non-Af Amer) (> 60) BUN/Creatinine Ratio (6-26) Glucose (70-105) mg/dL Calculated Osmolality (280-300) Calcium (8.6-10.3) mg/dL Total Bilirubin (0.3-1.0) mg/dL Direct Bilirubin (0.0-0.2) mg/dL Indirect Bilirubin (0.0-1.2) mg/dL AST (13-39) Units/L ALT (7-52) Units/L Alkaline Phosphatase (34-104) Units/L Troponin I (< 0.04) ng/mL B-Natriuretic Peptide (Less than 100) pg/mL Serum Total Protein (6.4-8.9) g/dL Albumin (3.5-5.7) g/dL Globulin (2.4-3.5) g/dL Albumin/Globulin Ratio (1.1-2.2) Urine Color Yellow (Yellow) Urine Clarity Clear (Clear) Urine pH 6.5 (5.0-8.0) pH Units Ur Specific [place] 1.029 H (1.010-1.025) Urine Protein Negative (Neg-Trace) mg/dL Urine Glucose (UA) Normal (Normal) mg/dL Urine Ketones Negative (Negative) mg/dL Urine Blood Large H (Negative) Urine Nitrite Negative (Negative) Urine Bilirubin Negative (Negative) Urine Urobilinogen Normal (Normal) mg/dL Ur Leukocyte Esterase Negative (Negative) Urine Microscopic RBC TNTC H (0-3) per hpf Urine Microscopic WBC 0-3 (0-3) per hpf Ur Squamous Epith Cells Many H (None-Few) per lpf Urine Bacteria None Seen (None-Few) per hpf Hyaline Casts None Seen (None-Few) per lpf Ur Culture Indicated? NO (NO) - Radiology Data Radiology results reviewed: Yes I reviewed the patient's radiology results. Lumbar Spine CT 01/10/18 16:17 IMPRESSION: L1-L2 compression fractures of indeterminate age but new since September 11, 2017. Interval progression of loss of height of the L4 compression fracture which was present on the prior study. Right lower lobe consolidation and small right pleural effusion. Correlation for pneumonia is recommended. Follow-up to resolution is recommended. 3 mm proximal left ureteral stone with mild prominence of the proximal left ureter. D/ / Anabel Caro Cha, MD / Anabel Caro Cha, MD Interpreting Provider: Anabel Caro Cha, MD Thoracic Spine CT 01/10/18 16:17 IMPRESSION: L1-L2 compression fractures of indeterminate age but new since September 11, 2017. Interval progression of loss of height of the L4 compression fracture which was present on the prior study. Right lower lobe consolidation and small right pleural effusion. Correlation for pneumonia is recommended. Follow-up to resolution is recommended. 3 mm proximal left ureteral stone with mild prominence of the proximal left ureter. D/ / Anabel Caro Cha, MD / Anabel Caro Cha, MD Interpreting Provider: Anabel Caro Cha, MD Chest X-Ray 01/10/18 19:19 IMPRESSION: Bibasilar lung aeration overall improved from August 2017. D/ / Mark Maguire MD / Mark Maguire MD Interpreting Provider: Mark Maguire MD - EKG Data EKG #1 EKG attestation: Yes I reviewed and interpreted this EKG. EKG results narrative: EKG shows a sinus bradycardia with ventricular rate of 52. PAC. SD 133. QT 431. QTC 401. No ST segment elevation or depression or other acute ischemic changes. Attestation Statement - Attestation Attestation: I, Sree Garcia MD, personally evaluated this patient and discussed their management with the resident physician. I reviewed the resident's note and agree with the documented findings, medical decision making, and plan of care. This patient was signed out at shift change from Dr. Laughlin and Dr. Garnica. Please refer to their notes for complete details of the history and physical examination. Patient presented with increased lower back pain. He has a prior history of lumbar compression fractures. Workup revealed new compression fractures of L1 and L2 with worsening compression fracture of L4. Incidentally during workup it was also discovered that patient had a 3 mm proximal left ureteral stone with mild prominence of the proximal left ureter. Hematuria. He was also noted to have a right lower lobe consolidation and small right pleural effusion. At shift change patient is awaiting further lab workup for these additional findings prior to consulting the hospitalist for admission. He was started on antibiotics for the pneumonia. On examination patient is a well-developed well-nourished elderly male in no acute distress. He is alert and oriented 3. There is no cyanosis or diaphoresis. Breath sounds are decreased but equal bilaterally with no rales or wheezes noted. Heart regular with a mild bradycardia. Abdomen soft and nontender with normal bowel sounds. Labs and imaging reviewed. EKG shows a sinus bradycardia with a rate of 52 and a PAC but otherwise no acute changes. The hospitalist, Dr. Rodriguez, was consulted and accepted admission of the patient.
[2018-01-10] MEDS ORDERED: Naloxone 0.4 MG/ML INJ IVP PRN (23:27)
[2018-01-10] MEDS ORDERED: *HR* OxyCODONE Immed Rel 5 MG TABLET PO PRN (23:27)
[2018-01-10] MEDS ORDERED: Acetaminophen 325 MG TABLET PO PRN (23:27)
[2018-01-10] MEDS ORDERED: 0.9 % Sodium Chloride 1,000 ML IVC SCH (23:30)
[2018-01-11] MEDS: traMADol 50 MG TABLET PO PRN (00:56)
[2018-01-11] MEDS: *HR* Heparin 5,000 UNIT/ML VIAL SQ SCH ×4 (00:56→21:57)
[2018-01-11 03:47] LABS: Basophils % 0.5 %; Eosinophils # 0.1 K/mcL (0.0-0.6); Eosinophils % 1.3 %; Hematocrit 38.6 % (37.5-50.1); Immature Granulocytes % 0.5 % (0-4); Lymphocytes # 1.2 K/mcL (0.6-4.6); Lymphocytes % 15.6 %; Mean Corpuscular HGB Conc 31.1 g/dL (31.6-35.5); Mean Corpuscular Hemoglobin 29.1 pg (28.0-33.3); Mean Corpuscular Volume 93.5 fL (83.0-100.0); Mean Platelet Volume 9.8 fL (9.4-12.4); Monocytes # 0.8 K/mcL (0.0-1.3); Monocytes % 10.4 %; Neutrophils # 5.6 K/mcL (1.6-8.9); Platelet Count 174 K/mcL (140-400); Red Blood Count 4.13 M/mcL (4.19-5.50); Red Cell Distribution Width 13.8 % (11.5-14.5); Segmented Neutrophils % 71.7 %
[2018-01-11 04:10] LABS: Alanine Aminotransferase 21 Units/L (7-52); Albumin 3.2 g/dL (3.5-5.7); Albumin/Globulin Ratio 1.2 (1.1-2.2); Alkaline Phosphatase 73 Units/L (34-104); Aspartate Amino Transferase 15 Units/L (13-39); BUN/Creatinine Ratio 21 (6-26); Bilirubin,Total 0.4 mg/dL (0.3-1.0); Blood Urea Nitrogen 20 mg/dL (8-23); Calcium 8.6 mg/dL (8.6-10.3); Carbon Dioxide 31 mEq/L (23-29); Chloride 105 mEq/L (98-107); Globulin 2.6 g/dL (2.4-3.5); Glucose 86 mg/dL (70-105); Osmolality,Calculated 294 (280-300); Sodium 141 mEq/L (136-145); Total Protein 5.8 g/dL (6.4-8.9); eGFR For Non-African Americans > 60 (> 60)
[2018-01-11] MEDS ORDERED: Ipratropium/Albuterol Neb 3 ML IH PRN ×2 (06:27)
--- NOTE | 2018-01-11 08:20 | Internal Med History&Physical ---
Date of Encounter: 01/11/18 Time of Encounter: 03:00 Internal Medicine - H&P: HPI Chief complaint: Back Pain History of present illness: Mr. Amor is a 67 year old male with a past medical history of COPD, hypertension, history of CVA and recent admission and treatment for compression fracture of the L4 vertebral body status post kyphoplasty who now presents with acute back pain. Patient states that yesterday while sitting in his wheelchair he reached out to pet a dog and suddenly felt a sharp pain throughout his back. Patient reports he did not have his back brace on at that time. He denies any numbness or tingling in his extremities. Pain was exacerbated with movement involving leaning forward or backwards. CT of the lumbar spine without contrast showed L1-L2 compression fractures of indeterminate age but new since 09/11/2017. A 3 mm left ureteral stone was also noted. Patient however denies any dysuria or flank pain radiating to his groin. He was also noted to have a right lower lobe consolidation and small right pleural effusion. However pedro gustafson again denies any fever, chills, shortness of breath, or productive cough. Back pain currently stable. Labs were otherwise unremarkable. Past Med Surg Social Fam HX - Past Medical History Medical history: atrial fibrillation, COPD, CVA, DVT, hyperlipidemia, hypertension, kidney stones Additional medical history: L4 fracture. benign essential tremors. hepatitis C (patient denies - states one test positive and later test negative) Psychiatric history: anxiety, depression - Past Surgical History Surgical History: tonsilectomy, other Additional surgical history: Herniated testical repair 1961, teeth removed - Social History Smoking Status: Former smoker Smokeless Tobacco Status: No Alcohol use: none Drug use: none - Family History Brother Family Member Ethnicity: Non- Living Status: Mother Adopted: No Family Member Ethnicity: Non- Living Status: Hx Family Cardiac Disorders: No Hx Family Respiratory Disorders: No Hx Family Cancer: Yes (lung) Hx Family GI Disorders: No Hx Family Endocrine Disorder: No Hx Family Neuromuscular Disorders: No Hx Family Neurologic Disorders: No Hx Family HEENT Disorders: No Hx Family Autoimmune Disorders: No Father Adopted: No Family Member Ethnicity: Non- Living Status: Hx Family Cardiac Disorders: No Hx Family Respiratory Disorders: Yes (emphysema) Hx Family Cancer: No Hx Family GI Disorders: No Hx Family Endocrine Disorder: No Hx Family Neuromuscular Disorders: No Hx Family Neurologic Disorders: No Hx Family HEENT Disorders: No Hx Family Autoimmune Disorders: No Internal Medicine - H&P: Meds Aspirin 81 mg PO DAILY #30 tab.chew 05/20/16 [Rx] Acetaminophen [Tylenol] 500 mg PO Q6H PRN 08/26/16 [History] Primidone [Mysoline] 50 mg PO BID 08/26/16 [History] Theophylline Anhydrous [Curt-24] 100 mg PO DAILY 10/04/16 [History] Docusate [Colace] 100 mg PO BID PRN 11/02/16 [History] Roflumilast [Daliresp] 500 mcg PO DAILY 11/02/16 [History] Buspirone HCl [Buspar] 15 mg PO BID 02/28/17 [History] GuaiFENesin ER [Mucinex] 600 mg PO Q12H PRN 02/28/17 [History] Calcium Carbonate [Calcium] 600 mg PO BIDWM 05/27/17 [History] Lovastatin 40 mg PO HS 05/27/17 [History] Sertraline [Zoloft] 50 mg PO DAILY 05/27/17 [History] Tiotropium [place] [Spiriva Respimat] 2 puff IH DAILY 05/27/17 [History] Metoprolol [Lopressor] 25 mg PO BID 06/06/17 [History] Mometasone/Formoterol [Dulera 100 Mcg/5 Mcg Inhaler] 2 puff IH BID 09/02/17 [History] Omeprazole [PriLOSEC] 20 mg PO DAILY 09/02/17 [History] Simethicone [Gas Relief] 180 mg PO Q4H PRN 09/02/17 [History] predniSONE [PredniSONE] 20 mg PO DAILY 09/02/17 [History] Calcitonin,Driscoll,Synthetic [Calcitonin-Driscoll] 1 spr NS DAILY 12/16/17 [History] GuaiFENesin Liq [Robitussin Liq] 200 mg PO Q6HR PRN 12/16/17 [History] HYDROcodone/Acet 5/325 mg [[place] 5-325 mg] 1 tab PO Q6H PRN 12/16/17 [History] Ipratropium/Albuterol Neb [Duoneb] 3 ml IH QIDR PRN 12/16/17 [History] Tramadol HCl [Ultram] 50 - 100 mg PO QID PRN 12/16/17 [History] HYDROcodone/Acet 5/325 mg [[place] 5-325 mg] 1 tab PO Q4H PRN 01/10/18 [History] Ipratropium/Albuterol Neb [Duoneb] 3 ml IH Q4HR PRN 01/10/18 [History] Allergy/AdvReac Type Severity Reaction Status Date / Time azithromycin [From Zithromax] AdvReac See Verified 12/16/17 10:00 Comments hydrochlorothiazide AdvReac Difficulty Verified 12/16/17 10:00 Breathing ibuprofen [From Motrin] AdvReac Gastrointestinal Verified 12/16/17 10:00 Upset levofloxacin [From Levaquin] AdvReac See Verified 12/16/17 10:00 Comments All Systems PM: A 10-system review of systems was performed and is negative for pertinent findings except as documented above in the HPI. - Constitutional Constitutional: no chills, no fever(s), no night sweats - EENT Eyes: no change in vision, no discharge, no pain, no photophobia Ears: no ear discharge, no ear pain, no tinnitus Nose, mouth and throat: no dysphagia, no nasal discharge, no neck pain, no sore throat - Cardiovascular Cardiovascular ROS IM: no chest pain, no diaphoresis, no dyspnea, no lighthead edness, no palpitations, no syncope - Respiratory Respiratory: no cough, no dyspnea, no wheezing, no excessive phlegm production - Gastrointestinal Gastrointestinal: no abdominal pain, no diarrhea, no hematemesis, no hemat ochezia, no melena, no nausea, no vomiting - Musculoskeletal Musculoskeletal ROS IM: no numbness, no tingling - Integumentary Integumentary IM: no rash, no unusual bruising - Neurological Neurological ROS: no confusion, no convulsions, no focal weakness, no numbness, no tingling, no tremor(s) - Hematologic/Lymphatic Hematologic/Lymphatic: no easy bruising - Constitutional Vitals: Temp Pulse Resp BP Pulse Ox 98.3 F 63 16 161/88 97 01/11/18 07:14 01/11/18 07:14 01/11/18 07:14 01/11/18 07:14 01/11/18 07:14 Exam: General: Alert and oriented 3; lying in bed in no acute distress Skin:Normal color, no rash, no lesions. HEENT:EOM, pupils equal, round and reactive. Cardiovascular:Normal S1 & S2, no rubs, murmurs or gallops. No JVD. Pulse regular. Lungs:Normal breath sounds, no wheezes or crackles. Abdomen:Soft, non-tender, no rigidity. Extremities:No deformity, no edema or tenderness, no numbness; no joint swelling or clubbing. Neurological:Normal cognition and motor skills. Pulses:Carotid and radial pulses normal +2. Musculoskeletal: Tenderness palpation along the lumbar spine at the level of L1- L2. Internal Med - H&P Results - Labs CBC & Chem 7: 01/11/18 03:28 01/11/18 03:28 Labs: Short CBC 01/10/18 01/11/18 Range/Units 19:36 03:28 WBC 8.1 7.9 (4.3-11.1) K/mcL Hgb 12.5 L 12.0 L (12.9-16.9) g/dL Hct 40.6 38.6 (37.5-50.1) % Plt Count 192 174 (140-400) K/mcL Neutrophils # 6.5 5.6 (1.6-8.9) K/mcL BMP 01/10/18 01/11/18 19:36 03:28 Sodium 139 141 Potassium 4.3 4.0 Chloride 105 105 Carbon Dioxide 31 H 31 H BUN 22 20 Creatinine 1.05 0.94 Glucose 115 H 86 Calcium 8.4 L 8.6 Cardiac Enzymes 01/10/18 Range/Units 19:36 Troponin I 0.03 (< 0.04) ng/mL Liver Function 01/10/18 01/11/18 Range/Units 19:36 03:28 Total Bilirubin 0.3 0.4 (0.3-1.0) mg/dL Direct Bilirubin 0.1 (0.0-0.2) mg/dL AST 16 15 (13-39) Units/L ALT 24 21 (7-52) Units/L Alkaline Phosphatase 79 73 (34-104) Units/L Albumin 3.3 L 3.2 L (3.5-5.7) g/dL Urine 01/10/18 Range/Units 20:13 Urine Color Yellow (Yellow) Urine Clarity Clear (Clear) Urine pH 6.5 (5.0-8.0) pH Units Ur Specific [place] 1.029 H (1.010-1.025) Urine Protein Negative (Neg-Trace) mg/dL Urine Glucose (UA) Normal (Normal) mg/dL - Impressions ITS Impressions Lumbar Spine CT 01/10/18 16:17 IMPRESSION: L1-L2 compression fractures of indeterminate age but new since September 11, 2017. Interval progression of loss of height of the L4 compression fracture which was present on the prior study. Right lower lobe consolidation and small right pleural effusion. Correlation for pneumonia is recommended. Follow-up to resolution is recommended. 3 mm proximal left ureteral stone with mild prominence of the proximal left ureter. D/ / Anabel Caro Cha, MD / Anabel Caro Cha, MD Interpreting Provider: Anabel Caro Cha, MD Thoracic Spine CT 01/10/18 16:17 IMPRESSION: L1-L2 compression fractures of indeterminate age but new since September 11, 2017. Interval progression of loss of height of the L4 compression fracture which was present on the prior study. Right lower lobe consolidation and small right pleural effusion. Correlation for pneumonia is recommended. Follow-up to resolution is recommended. 3 mm proximal left ureteral stone with mild prominence of the proximal left ureter. D/ / Anabel Caro Cha, MD / Anabel Caro Cha, MD Interpreting Provider: Anabel Caro Cha, MD Chest X-Ray 01/10/18 19:19 IMPRESSION: Bibasilar lung aeration overall improved from August 2017. D/ / Mark Maguire MD / Mark Maguire MD Interpreting Provider: Mark Maguire MD - Assessment and plan (1) Compression fracture of lumbar spine, non-traumatic Current Visit: Yes Status: Chronic Assessment and plan: L1-L2 compression fracture of indeterminate age but new since 09/11/2017 in the setting of acute back pain. No other focal neurological findings at this point. Pain currently controlled. We will continue with pain management. We will keep patient NPO. Orthopedic consult in the morning. Qualifiers: Encounter type: subsequent encounter Lumbar vertebra fracture level: L2 Fracture healing: with routine healing Qualified Code(s): M48.56XD - Collapsed vertebra, not elsewhere classified, lumbar region, subsequent encounter for fracture with routine healing (2) Pleural effusion, right Current Visit: Yes Status: Acute Assessment and plan: Right lower lobe consolidation and small right pleural effusion noted on thoracic CT. Patient currently not complaining of any shortness of breath, fever or productive cough. Lung sounds clear. Appears to be chronic. We will monitor for now. Incentive spirometer due to reported mild pain with deep inspiration. (3) Left ureteral calculus Current Visit: Yes Status: Acute Assessment and plan: 3 mm proximal left ureteral stone noted on CT of spine. Patient currently asymptomatic. Likely pass on its own given its small size. We will monitor for now. (4) COPD (chronic obstructive pulmonary disease) Current Visit: No Status: Acute Assessment and plan: No evidence of acute exacerbation. Continue with home inhalers. Qualifiers: COPD type: unspecified COPD Qualified Code(s): J44.9 - Chronic obstructive pulmonary disease, unspecified (5) DVT prophylaxis Current Visit: No Status: Acute Assessment and plan: Subcutaneous heparin - Time Spent With Patient Total time spent is greater than 50% in coordination of care (as documented) at patient's floor/unit and/or counseling patient:
[2018-01-11] MEDS: Budesonide/Formoterol 80/4.5 MDI IH SCH ×2 (08:35→20:03)
[2018-01-11] MEDS ORDERED: Tiotropium 18 MCG inhalation IH SCH (09:00)
--- NOTE | 2018-01-11 09:43 | Internal Med Progress Note ---
<Poncho Ramírez - Last Filed: 01/11/18 17:48> Hospitalist Progress Note - Exam Vitals: Temp Pulse Resp BP Pulse Ox 98.3 F 63 16 161/88 98 01/11/18 07:14 01/11/18 07:14 01/11/18 08:35 01/11/18 08:35 01/11/18 08:35 - Assessment and Plan (1) DVT prophylaxis Current Visit: No Status: Acute (2) Pneumonia Current Visit: Yes Status: Acute (3) COPD (chronic obstructive pulmonary disease) Current Visit: No Status: Acute (4) Compression fracture of lumbar spine, non-traumatic Current Visit: Yes Status: Chronic (5) Left ureteral calculus Current Visit: Yes Status: Acute (6) Pleural effusion, right Current Visit: Yes Status: Acute - Time Spent with Patient Total time spent is greater than 50% in coordination of care (as documented) at patient's floor/unit and/or counseling patient: Internal Medicine: Result - Labs CBC & Chem 7: 01/11/18 03:28 01/11/18 03:28 Labs: Short CBC 01/10/18 01/11/18 Range/Units 19:36 03:28 WBC 8.1 7.9 (4.3-11.1) K/mcL Hgb 12.5 L 12.0 L (12.9-16.9) g/dL Hct 40.6 38.6 (37.5-50.1) % Plt Count 192 174 (140-400) K/mcL Neutrophils # 6.5 5.6 (1.6-8.9) K/mcL BMP 01/10/18 01/11/18 19:36 03:28 Sodium 139 141 Potassium 4.3 4.0 Chloride 105 105 Carbon Dioxide 31 H 31 H BUN 22 20 Creatinine 1.05 0.94 Glucose 115 H 86 Calcium 8.4 L 8.6 Cardiac Enzymes 01/10/18 Range/Units 19:36 Troponin I 0.03 (< 0.04) ng/mL Liver Function 01/10/18 01/11/18 Range/Units 19:36 03:28 Total Bilirubin 0.3 0.4 (0.3-1.0) mg/dL Direct Bilirubin 0.1 (0.0-0.2) mg/dL AST 16 15 (13-39) Units/L ALT 24 21 (7-52) Units/L Alkaline Phosphatase 79 73 (34-104) Units/L Albumin 3.3 L 3.2 L (3.5-5.7) g/dL Urine 01/10/18 Range/Units 20:13 Urine Color Yellow (Yellow) Urine Clarity Clear (Clear) Urine pH 6.5 (5.0-8.0) pH Units Ur Specific [place] 1.029 H (1.010-1.025) Urine Protein Negative (Neg-Trace) mg/dL Urine Glucose (UA) Normal (Normal) mg/dL - Impressions Impressions Lumbar Spine CT 01/10/18 16:17 IMPRESSION: L1-L2 compression fractures of indeterminate age but new since September 11, 2017. Interval progression of loss of height of the L4 compression fracture which was present on the prior study. Right lower lobe consolidation and small right pleural effusion. Correlation for pneumonia is recommended. Follow-up to resolution is recommended. 3 mm proximal left ureteral stone with mild prominence of the proximal left ureter. D/ / Anabel Caro Cha, MD / Anabel Caro Cha, MD Interpreting Provider: Anabel Caro Cha, MD Thoracic Spine CT 01/10/18 16:17 IMPRESSION: L1-L2 compression fractures of indeterminate age but new since September 11, 2017. Interval progression of loss of height of the L4 compression fracture which was present on the prior study. Right lower lobe consolidation and small right pleural effusion. Correlation for pneumonia is recommended. Follow-up to resolution is recommended. 3 mm proximal left ureteral stone with mild prominence of the proximal left ureter. D/ / Anabel Caro Cha, MD / Anabel Caro Cha, MD Interpreting Provider: Anabel Caro Cha, MD Chest X-Ray 01/10/18 19:19 IMPRESSION: Bibasilar lung aeration overall improved from August 2017. D/ / Mark Maguire MD / Mark Maguire MD Interpreting Provider: Mark Maguire MD Consult Discharge Plan - Plan Referrals: NONE,PCP [Primary Care Provider] - - Attending Attestation I examined this patient and my medical decision-making was reviewed with the Resident Physician on 01/11/18. I agree with the documented findings, dis position and treatment plan as described except to the extent set forth below. Mr Amor was placed in observation earlier today for back pain. Exam Alert Moderate distress moving around in bed. Mucus membranes dry Heart reg Agree with assessment and plan as above and in H&P <Micheal Corado - Last Filed: 01/11/18 18:46> Hospitalist Progress Note - Encounter Date of Encounter: 01/11/18 Time of Encounter: 09:15 - Subjective Interval History: Mr. Amor is a 61-year-old pleasant male with a past medical history of COPD, hypertension, history of CVA who was admitted to the floor because of back pain was found to have L1-L2 compression fracture on CT. Patient was admitted not too long ago for L4 vertebral body fracture status post kyphoplasty at [facility]. Endorses that he has a chronic history of COPD this endorses no worsening shortness of breath or productive sputum. Denies any sick contacts or recent travels. She endorses that he has had multiple episodes of pneumonia and was admitted to the hospital not too long ago. Endorses that he was on wheelchair trying to bend forward [place] when he heard something snap. Patient denies any radiating pain to his lower extremities. Patient was seen at the bedside. He seems to be in moderate pain because of his compression fracture. - Exam Vitals: Temp Pulse Resp BP Pulse Ox 98.3 F 63 16 161/88 97 01/11/18 07:14 01/11/18 07:14 01/11/18 07:14 01/11/18 07:14 01/11/18 07:14 Exam: gen : A&O 3, no acute distress. resp: Mild bilateral expiratory wheezing. No rhonchi/ rales. cardio: Regular rhythm, no rubs murmurs or gallops. -abdomen: Off, nontender, nondistended. - Extremities: non- Edematous, no cyanosis or clubbing. - Assessment and Plan (1) COPD (chronic obstructive pulmonary disease) Current Visit: No Status: Acute Assessment and Plan: Patient has a history of COPD. During this admission he does not appear to be an exacerbation of COPD. -Endorses no worsening cough productive sputum or shortness of breath. -Currently on DuoNeb's when necessary, symbiort 2 puffs BID, prednisone 20 mg. (2) Pneumonia Current Visit: Yes Status: Acute Assessment and Plan: - Insulin the lumbar CT showed right lower lobe consolidation and small right pleural effusion. - On Physical exam he had mild expiratory wheezing. - Currently on cefepime, continue to monitor (3) Compression fracture of lumbar spine, non-traumatic Current Visit: Yes Status: Chronic Assessment and Plan: - She due to stretching his back getting forward, in the context of recent kyphoplasty to L4 vertebrae. - Patient's lumbar CT showed L1-L2 compression fracture of indeterminate age but new since 09/11/2017. -On physical exam patient manifested be back pain but non radiating in nature with no evidence of numbness or tingling in extremities. - As per the recommendation of pain consult, there is no plan to go to the OR now . Patient is scheduled for follow-up in Dr. Patterson's office next week. (4) Left ureteral calculus Current Visit: Yes Status: Acute Assessment and Plan: - CT showed 3 mm proximal left ureteral stone noted on CT of spine. Patient currently asymptomatic. L- on physical exam patient appears to be in no acute distress for his ureteral stone. No indication for any invasive procedure because of the size of the stone. - Continue to monitor. (5) Pleural effusion, right Current Visit: Yes Status: Acute Assessment and Plan: - CT thoracic showed Right lower lobe consolidation and small right pleural effusion -On physical exam not endorsing any shortness of breath, fever or productive cough. He does have mild bilateral wheezing. -Incentive spirometry to rectify the V/Q mismatch secondary to atelectasis. (6) DVT prophylaxis Current Visit: No Status: Acute Assessment and Plan: Subcutaneous heparin - Time Spent with Patient Total time spent is greater than 50% in coordination of care (as documented) at patient's floor/unit and/or counseling patient: Internal Medicine: Result - Labs CBC & Chem 7: 01/11/18 03:28 01/11/18 03:28 Labs: Short CBC 01/10/18 01/11/18 Range/Units 19:36 03:28 WBC 8.1 7.9 (4.3-11.1) K/mcL Hgb 12.5 L 12.0 L (12.9-16.9) g/dL Hct 40.6 38.6 (37.5-50.1) % Plt Count 192 174 (140-400) K/mcL Neutrophils # 6.5 5.6 (1.6-8.9) K/mcL BMP 01/10/18 01/11/18 19:36 03:28 Sodium 139 141 Potassium 4.3 4.0 Chloride 105 105 Carbon Dioxide 31 H 31 H BUN 22 20 Creatinine 1.05 0.94 Glucose 115 H 86 Calcium 8.4 L 8.6 Cardiac Enzymes 01/10/18 Range/Units 19:36 Troponin I 0.03 (< 0.04) ng/mL Liver Function 01/10/18 01/11/18 Range/Units 19:36 03:28 Total Bilirubin 0.3 0.4 (0.3-1.0) mg/dL Direct Bilirubin 0.1 (0.0-0.2) mg/dL AST 16 15 (13-39) Units/L ALT 24 21 (7-52) Units/L Alkaline Phosphatase 79 73 (34-104) Units/L Albumin 3.3 L 3.2 L (3.5-5.7) g/dL Urine 01/10/18 Range/Units 20:13 Urine Color Yellow (Yellow) Urine Clarity Clear (Clear) Urine pH 6.5 (5.0-8.0) pH Units Ur Specific [place] 1.029 H (1.010-1.025) Urine Protein Negative (Neg-Trace) mg/dL Urine Glucose (UA) Normal (Normal) mg/dL - Impressions Impressions Lumbar Spine CT 01/10/18 16:17 IMPRESSION: L1-L2 compression fractures of indeterminate age but new since September 11, 2017. Interval progression of loss of height of the L4 compression fracture which was present on the prior study. Right lower lobe consolidation and small right pleural effusion. Correlation for pneumonia is recommended. Follow-up to resolution is recommended. 3 mm proximal left ureteral stone with mild prominence of the proximal left ureter. D/ / Anabel Caro Cha, MD / Anabel Caro Cha, MD Interpreting Provider: Anabel Caro Cha, MD Thoracic Spine CT 01/10/18 16:17 IMPRESSION: L1-L2 compression fractures of indeterminate age but new since September 11, 2017. Interval progression of loss of height of the L4 compression fracture which was present on the prior study. Right lower lobe consolidation and small right pleural effusion. Correlation for pneumonia is recommended. Follow-up to resolution is recommended. 3 mm proximal left ureteral stone with mild prominence of the proximal left ureter. D/ / Anabel Caro Cha, MD / Anabel Caro Cha, MD Interpreting Provider: Anabel Caro Cha, MD Chest X-Ray 01/10/18 19:19 IMPRESSION: Bibasilar lung aeration overall improved from August 2017. D/ / Mark Maguire MD / Mark Maguire MD Interpreting Provider: Mark Maguire MD <Poncho Ramírez - Last Filed: 01/11/18 17:48> (2) Pneumonia Qualifiers: Pneumonia type: due to unspecified organism Laterality: unspecified laterality Lung location: unspecified part of lung Qualified Code(s): J18.9 - Pneumonia, unspecified organism (3) COPD (chronic obstructive pulmonary disease) Qualifiers: COPD type: unspecified COPD Qualified Code(s): J44.9 - Chronic obstructive pulmonary disease, unspecified (4) Compression fracture of lumbar spine, non-traumatic Qualifiers: Encounter type: subsequent encounter Lumbar vertebra fracture level: L2 Fracture healing: with routine healing Qualified Code(s): M48.56XD - Collapsed vertebra, not elsewhere classified, lumbar region, subsequent encounter for fracture with routine healing <Micheal Corado - Last Filed: 01/11/18 18:46> (1) COPD (chronic obstructive pulmonary disease) Qualifiers: COPD type: unspecified COPD Qualified Code(s): J44.9 - Chronic obstructive pulmonary disease, unspecified (2) Pneumonia Qualifiers: Pneumonia type: due to unspecified organism Laterality: unspecified laterality Lung location: unspecified part of lung Qualified Code(s): J18.9 - Pneumonia, unspecified organism (3) Compression fracture of lumbar spine, non-traumatic Qualifiers: Encounter type: subsequent encounter Lumbar vertebra fracture level: L2 Fracture healing: with routine healing Qualified Code(s): M48.56XD - Collapsed vertebra, not elsewhere classified, lumbar region, subsequent encounter for fracture with routine healing
[2018-01-11] MEDS: predniSONE 20 MG TABLET PO SCH (10:14)
--- NOTE | 2018-01-11 14:03 | Pain Management Consultation ---
Date of Encounter: 01/11/18 Time of Encounter: 15:31 Assessment and Plan (1) Compression fracture of lumbar spine, non-traumatic Current Visit: Yes Status: Chronic The patient has new compression deformities at L1 and L2 1. The patient should be allowed to eat and drink normally. We do not have plans to go to the OR now. 2. The patient's is currently scheduled for follow-up in my office next week. At that time, we will ascertain whether or not he is having spontaneous healing of his new fractures or whether or not he would like to proceed with surgical repair. 3. I would like the patient had the benefit of ongoing antibiotic infusion to control suspected pneumonia prior to surgery. 4. The patient should continue as needed oral opioid as well as back bracing and rest. I encouraged him to be as active as possible. Physical therapy treatment both in the hospital and at his living facility are indicated and should be done. 5. I would also ask my hospitalist colleagues to initiate Fosamax therapy for him. Dosing should be 70 mg weekly. The assessment and plan as outlined above was discussed with the patient and/or family members who expressed understanding and agreement. All questions were answered. Qualifiers: Encounter type: subsequent encounter Lumbar vertebra fracture level: L2 Fracture healing: with routine healing Qualified Code(s): M48.56XD - Collapsed vertebra, not elsewhere classified, lumbar region, subsequent encounter for fracture with routine healing History of Present Illness Chief complaint: back pain HPI: Mr. Amor is a 67 year old male suffering with pain in the back. The patient underwent successful L4 kyphoplasty on 12/16/2017. The patient felt well for approximately one week but just prior to his postoperative visit, he noticed that the pain increased in his lower back. The pain began gradually and he experienced no falls or injuries prior to the pain in his back returning. Repeat x-ray testing indicated that there were new fractures developing at L2 and possibly at L1. The patient now has been admitted to the hospital because he had a sudden increase in his pain while bending forward. The pain began in the lower back and did not involve pain radiating into his legs. He describes the pain now as midrange, 5/10. Pain medication eases the pain and he is able to find a comfortable position while lying in bed. He does have a back brace. Past Med Surg Social Fam HX - Past Medical History Medical history: atrial fibrillation, COPD, CVA, DVT, hyperlipidemia, hypertension, kidney stones Additional medical history: L4 fracture. benign essential tremors. hepatitis C (patient denies - states one test positive and later test negative) Psychiatric history: anxiety, depression - Past Surgical History Surgical History: tonsilectomy, other Additional surgical history: Herniated testical repair 1961, teeth removed - Social History Smoking Status: Former smoker Smokeless Tobacco Status: No Alcohol use: none Drug use: none - Family History Brother Family Member Ethnicity: Non- Living Status: Mother Adopted: No Family Member Ethnicity: Non- Living Status: Hx Family Cardiac Disorders: No Hx Family Respiratory Disorders: No Hx Family Cancer: Yes (lung) Hx Family GI Disorders: No Hx Family Endocrine Disorder: No Hx Family Neuromuscular Disorders: No Hx Family Neurologic Disorders: No Hx Family HEENT Disorders: No Hx Family Autoimmune Disorders: No Father Adopted: No Family Member Ethnicity: Non- Living Status: Hx Family Cardiac Disorders: No Hx Family Respiratory Disorders: Yes (emphysema) Hx Family Cancer: No Hx Family GI Disorders: No Hx Family Endocrine Disorder: No Hx Family Neuromuscular Disorders: No Hx Family Neurologic Disorders: No Hx Family HEENT Disorders: No Hx Family Autoimmune Disorders: No Medications and Allergies Aspirin 81 mg PO DAILY #30 tab.chew 05/20/16 [Rx] Acetaminophen [Tylenol] 500 mg PO Q6H PRN 08/26/16 [History] Primidone [Mysoline] 50 mg PO BID 08/26/16 [History] Theophylline Anhydrous [Curt-24] 100 mg PO DAILY 10/04/16 [History] Docusate [Colace] 100 mg PO BID PRN 11/02/16 [History] Roflumilast [Daliresp] 500 mcg PO DAILY 11/02/16 [History] Buspirone HCl [Buspar] 15 mg PO BID 02/28/17 [History] GuaiFENesin ER [Mucinex] 600 mg PO Q12H PRN 02/28/17 [History] Calcium Carbonate [Calcium] 600 mg PO BIDWM 05/27/17 [History] Lovastatin 40 mg PO HS 05/27/17 [History] Sertraline [Zoloft] 50 mg PO DAILY 05/27/17 [History] Tiotropium [place] [Spiriva Respimat] 2 puff IH DAILY 05/27/17 [History] Metoprolol [Lopressor] 25 mg PO BID 06/06/17 [History] Mometasone/Formoterol [Dulera 100 Mcg/5 Mcg Inhaler] 2 puff IH BID 09/02/17 [History] Omeprazole [PriLOSEC] 20 mg PO DAILY 09/02/17 [History] Simethicone [Gas Relief] 180 mg PO Q4H PRN 09/02/17 [History] predniSONE [PredniSONE] 20 mg PO DAILY 09/02/17 [History] Calcitonin,[place],Synthetic [Calcitonin-[place]] 1 spr NS DAILY 12/16/17 [History] GuaiFENesin Liq [Robitussin Liq] 200 mg PO Q6HR PRN 12/16/17 [History] HYDROcodone/Acet 5/325 mg [[place] 5-325 mg] 1 tab PO Q6H PRN 12/16/17 [History] Ipratropium/Albuterol Neb [Duoneb] 3 ml IH QIDR PRN 12/16/17 [History] Tramadol HCl [Ultram] 50 - 100 mg PO QID PRN 12/16/17 [History] HYDROcodone/Acet 5/325 mg [[place] 5-325 mg] 1 tab PO Q4H PRN 01/10/18 [History] Ipratropium/Albuterol Neb [Duoneb] 3 ml IH Q4HR PRN 01/10/18 [History] Allergy/AdvReac Type Severity Reaction Status Date / Time azithromycin [From Zithromax] AdvReac See Verified 12/16/17 10:00 Comments hydrochlorothiazide AdvReac Difficulty Verified 12/16/17 10:00 Breathing ibuprofen [From Motrin] AdvReac Gastrointestinal Verified 12/16/17 10:00 Upset levofloxacin [From Levaquin] AdvReac See Verified 12/16/17 10:00 Comments Review of Systems - Constitutional Constitutional ROS IM: no photophobia, no phonophobia, no daytime sleepiness, no fever(s), no stops breathing during sleep - EENT Nose, mouth and throat: no headache(s), no neck pain, no neck trauma - Cardiovascular Cardiovascular ROS: no chest pain, no leg edema, no lightheadedness - Respiratory Respiratory: no pain on inspiration, no pain with cough - Gastrointestinal Gastrointestinal: no abdominal pain, no constipation, no diarrhea, no heartburn - Genitourinary Genitourinary ROS: no difficulty urinating, no flank pain, no urinary hesitancy - Musculoskeletal Musculoskeletal ROS: no muscle weakness, no numbness, no radiating pain into limb, no tingling - Integumentary Integumentary: no erythema, no lesions, no swelling - Neurological Neurological ROS: no abnormal gait, no behavioral changes, no focal weakness, no radicular pain - Psychiatric Psychiatric general: no anxiety, no confusion, no depression - Hematologic/Lymphatic Hematologic/Lymphatic pediatric: no easy bleeding, no easy bruising Physical Exam Initial Vital Signs Temp Pulse Resp BP Pulse Ox 98.2 F 70 18 144/88 98 01/10/18 15:42 01/10/18 15:42 01/10/18 15:42 01/10/18 15:42 01/10/18 15:42 - Additional Findings EYES:: pupils equal and round, no myosis. SKIN:: no areas of echymoses or petechiae CARDIOVASCULAR:: regular rate and rhythm, no murmurs PULMONARY:: lung garcia clear to auscultation bilaterally. Quiet, normal respiratory pattern. GASTROINTESTINAL:: active bowel sounds. MUSCULOSKELETAL PALPATION:: paraspinous musculature is tender to deep palpation in the lumbar area bilaterally. Tender in lower back STRENGTH:: RIGHT ankle dorsiflexion 5/5 :: LEFT ankle dorsiflexion 5/5 RIGHT ankle plantarflexion 5/5 :: LEFT ankle plantarflexion 5/5 RIGHT great toe dorsiflexion 5/5 :: LEFT great toe dorsiflexion 5/5 RIGHT great toe plantarflexion 5/5 :: LEFT great toe plantarflexion 5/5 NEUROLOGIC SENSATION:: hypesthesia is not noted in lower extremity dermatomes. PSYCHIATRIC:: ORIENTATION:: awake and alert. INSIGHT:: good awareness of illness. AFFECT:: pleasant. Radiology Images Viewed By Ma:: December [address] scan shows progression of L4 compression fracture and development of new are compression fractures at L1 and L2. Kyphoplasty bone cement present in L4 vertebral body. White blood cell count normal from current admission I have reviewed and agree with information documented in the scribed documentation, ROS, patient medications, allergies, medical history, surgical history, social history, and family history. Results - Labs 01/11/18 03:28 01/11/18 03:28 Abnormal lab results RBC 4.13 M/mcL (4.19-5.50) L 01/11/18 03:28 Hgb 12.0 g/dL (12.9-16.9) L 01/11/18 03:28 MCHC 31.1 g/dL (31.6-35.5) L 01/11/18 03:28 Carbon Dioxide 31 mEq/L (23-29) H 01/11/18 03:28 B-Natriuretic Peptide 242 pg/mL (Less than 100) H 01/10/18 19:36 Serum Total Protein 5.8 g/dL (6.4-8.9) L 01/11/18 03:28 Albumin 3.2 g/dL (3.5-5.7) L 01/11/18 03:28 Ur Specific [place] 1.029 (1.010-1.025) H 01/10/18 20:13 Urine Blood Large (Negative) H 01/10/18 20:13 Urine Microscopic RBC TNTC per hpf (0-3) H 01/10/18 20:13 Ur Squamous Epith Cells Many per lpf (None-Few) H 01/10/18 20:13 Diabetes panel 01/10/18 01/11/18 Range/Units 19:36 03:28 Sodium 139 141 (136-145) mEq/L Potassium 4.3 4.0 (3.5-5.1) mEq/L Chloride 105 105 (98-107) mEq/L Carbon Dioxide 31 H 31 H (23-29) mEq/L BUN 22 20 (8-23) mg/dL Creatinine 1.05 0.94 (0.70-1.30) mg/dL Glucose 115 H 86 (70-105) mg/dL Calcium 8.4 L 8.6 (8.6-10.3) mg/dL AST 16 15 (13-39) Units/L ALT 24 21 (7-52) Units/L Alkaline Phosphatase 79 73 (34-104) Units/L Albumin 3.3 L 3.2 L (3.5-5.7) g/dL Calcium panel 01/10/18 01/11/18 Range/Units 19:36 03:28 Calcium 8.4 L 8.6 (8.6-10.3) mg/dL Albumin 3.3 L 3.2 L (3.5-5.7) g/dL Pituitary panel 01/10/18 01/11/18 Range/Units 19:36 03:28 Sodium 139 141 (136-145) mEq/L Potassium 4.3 4.0 (3.5-5.1) mEq/L Chloride 105 105 (98-107) mEq/L Carbon Dioxide 31 H 31 H (23-29) mEq/L BUN 22 20 (8-23) mg/dL Creatinine 1.05 0.94 (0.70-1.30) mg/dL Glucose 115 H 86 (70-105) mg/dL Calcium 8.4 L 8.6 (8.6-10.3) mg/dL Adrenal panel 01/10/18 01/11/18 Range/Units 19:36 03:28 Sodium 139 141 (136-145) mEq/L Potassium 4.3 4.0 (3.5-5.1) mEq/L Chloride 105 105 (98-107) mEq/L Carbon Dioxide 31 H 31 H (23-29) mEq/L BUN 22 20 (8-23) mg/dL Creatinine 1.05 0.94 (0.70-1.30) mg/dL Glucose 115 H 86 (70-105) mg/dL Calcium 8.4 L 8.6 (8.6-10.3) mg/dL Total Bilirubin 0.3 0.4 (0.3-1.0) mg/dL AST 16 15 (13-39) Units/L ALT 24 21 (7-52) Units/L Alkaline Phosphatase 79 73 (34-104) Units/L Albumin 3.3 L 3.2 L (3.5-5.7) g/dL All other labs normal. Consult Discharge Plan - Plan Referrals: NONE,PCP [Primary Care Provider] -
[2018-01-11] MEDS: Cefepime HCl 2,000 MG in Water for inj. (sterile) 20 ML 20 ML IVP SCH (18:15)
[2018-01-11] MEDS: Primidone 50 MG TABLET PO SCH (21:57)
[2018-01-12 04:25] LABS: Basophils % 0.3 %; Eosinophils # 0.1 K/mcL (0.0-0.6); Eosinophils % 1.9 %; Hematocrit 40.8 % (37.5-50.1); Hemoglobin 12.7 g/dL (12.9-16.9); Immature Granulocytes % 0.3 % (0-4); Lymphocytes # 1.1 K/mcL (0.6-4.6); Lymphocytes % 17.8 %; Mean Corpuscular HGB Conc 31.1 g/dL (31.6-35.5); Mean Corpuscular Hemoglobin 28.9 pg (28.0-33.3); Mean Corpuscular Volume 92.9 fL (83.0-100.0); Monocytes # 0.7 K/mcL (0.0-1.3); Monocytes % 10.3 %; Neutrophils # 4.4 K/mcL (1.6-8.9); Platelet Count 189 K/mcL (140-400); Red Blood Count 4.39 M/mcL (4.19-5.50); Red Cell Distribution Width 13.4 % (11.5-14.5); Segmented Neutrophils % 69.4 %
[2018-01-12 04:42] LABS: BUN/Creatinine Ratio 19 (6-26); Blood Urea Nitrogen 17 mg/dL (8-23); Calcium 8.5 mg/dL (8.6-10.3); Carbon Dioxide 29 mEq/L (23-29); Chloride 102 mEq/L (98-107); Glucose 88 mg/dL (70-105); Osmolality,Calculated 285 (280-300); Potassium 4.1 mEq/L (3.5-5.1); Sodium 137 mEq/L (136-145); eGFR For Non-African Americans > 60 (> 60)
[2018-01-12] MEDS: *HR* Heparin 5,000 UNIT/ML VIAL SQ SCH ×3 (05:05→20:21)
[2018-01-12] MEDS: Cefepime HCl 2,000 MG in Water for inj. (sterile) 20 ML 20 ML IVP SCH ×2 (05:06→18:38)
[2018-01-12] MEDS: Budesonide/Formoterol 80/4.5 MDI IH SCH ×2 (07:55→20:26)
[2018-01-12] MEDS: Tiotropium 18 MCG inhalation IH SCH (09:05)
[2018-01-12] MEDS: Primidone 50 MG TABLET PO SCH ×2 (10:09→20:20)
[2018-01-12] MEDS: predniSONE 20 MG TABLET PO SCH (10:10)
[2018-01-12] MEDS: traMADol 50 MG TABLET PO PRN ×2 (10:14→20:22)
--- NOTE | 2018-01-12 10:48 | Internal Med Progress Note ---
<Corado,Micheal - Last Filed: 01/12/18 17:45> Hospitalist Progress Note - Encounter Date of Encounter: 01/12/18 Time of Encounter: 09:00 - Subjective Interval History: 01/12 Patient seen today at the bedside. He endorses no acute distress. Patient is currently on oxycodone and Tramadol for pain control for his L1-L2 compression fracture. Dr. Patterson wants to initiate Fosamax therapy for him at 70 mg weekly dosing. Spoke to the pharmacist about dosing him as an inpatient and she called outpatient pharmacy but the Fosamax only comes in box of 4. Patient will be discharged tomorrow on Fosamax . 01/11 Mr. Amor is a 61-year-old pleasant male with a past medical history of COPD, hypertension, history of CVA who was admitted to the floor because of back pain was found to have L1-L2 compression fracture on CT. Patient was admitted not too long ago for L4 vertebral body fracture status post kyphoplasty at [facility]. Endorses that he has a chronic history of COPD this endorses no worsening shortness of breath or productive sputum. Denies any sick contacts or recent travels. She endorses that he has had multiple episodes of pneumonia and was admitted to the hospital not too long ago. Endorses that he was on wheelchair trying to bend forward [place] [facility] when he heard something snap. Patient denies any radiating pain to his lower extremities. Patient was seen at the bedside. He seems to be in moderate pain because of his compression fracture. - Exam Vitals: Temp Pulse Resp BP Pulse Ox 97.8 F 63 18 149/84 96 01/12/18 07:04 01/12/18 07:04 01/12/18 07:04 01/12/18 07:04 01/12/18 07:04 Exam: General: Alert and oriented 3; lying in bed in no acute distress Skin:Normal color, no rash, no lesions. HEENT:EOM, pupils equal, round and reactive. Cardiovascular:Normal S1 & S2, no rubs, murmurs or gallops. No JVD. Pulse regular. Lungs:Normal breath sounds, no wheezes or crackles. Abdomen:Soft, non-tender, no rigidity. Extremities:No deformity, no edema or tenderness, no numbness; no joint swelling or clubbing. Neurological:Normal cognition and motor skills. Pulses:Carotid and radial pulses normal +2. Musculoskeletal: Tenderness palpation along the lumbar spine at the level of L1- L2. - Assessment and Plan (1) COPD (chronic obstructive pulmonary disease) Current Visit: No Status: Acute Assessment and Plan: Patient has a history of COPD. During this admission he does not appear to be an exacerbation of COPD. -Endorses no worsening cough productive sputum or shortness of breath. -Currently on DuoNeb's when necessary, symbiort 2 puffs BID, spiriva, and prednisone 20 mg.. (2) Compression fracture of lumbar spine, non-traumatic Current Visit: Yes Status: Chronic Assessment and Plan: Likely due to stretching his back getting forward, in the context of recent kyphoplasty to L4 vertebrae. - Patient's lumbar CT showed L1-L2 compression fracture of indeterminate age but new since 09/11/2017. -On physical exam patient manifested be back pain but non radiating in nature with no evidence of numbness or tingling in extremities. - As per the recommendation of pain consult,plan is to follow-up in Dr. Patterson's office next week. Patient also recommended to take Fosamax 70 mg weekly (3) Left ureteral calculus Current Visit: Yes Status: Acute Assessment and Plan: - CT showed 3 mm proximal left ureteral stone noted on CT of spine. Patient currently asymptomatic. L- on physical exam patient appears to be in no acute distress for his ureteral stone. No indication for any invasive procedure because of the size of the stone. - Continue to monitor. (4) DVT prophylaxis Current Visit: No Status: Acute Assessment and Plan: Subcutaneous heparin (5) Pleural effusion, right Current Visit: Yes Status: Acute Assessment and Plan: - CT thoracic showed Right lower lobe consolidation and small right pleural effusion -On physical exam not endorsing any shortness of breath, fever or productive cough. He does have mild bilateral wheezing. -Incentive spirometry to rectify the V/Q mismatch secondary to atelectasis. - Time Spent with Patient Total time spent is greater than 50% in coordination of care (as documented) at patient's floor/unit and/or counseling patient: Internal Medicine: Result - Labs CBC & Chem 7: 01/12/18 03:43 01/12/18 03:43 Labs: Short CBC 01/12/18 Range/Units 03:43 WBC 6.3 (4.3-11.1) K/mcL Hgb 12.7 L (12.9-16.9) g/dL Hct 40.8 (37.5-50.1) % Plt Count 189 (140-400) K/mcL Neutrophils # 4.4 (1.6-8.9) K/mcL BMP 01/12/18 03:43 Sodium 137 Potassium 4.1 Chloride 102 Carbon Dioxide 29 BUN 17 Creatinine 0.89 Glucose 88 Calcium 8.5 L Consult Discharge Plan - Plan Referrals: NONE,PCP [Primary Care Provider] - <Poncho Ramírez - Last Filed: 01/12/18 18:17> Hospitalist Progress Note - Exam Vitals: Temp Pulse Resp BP Pulse Ox 97.7 F 65 15 121/79 96 01/12/18 14:09 01/12/18 14:09 01/12/18 14:09 01/12/18 14:09 01/12/18 14:09 - Assessment and Plan (1) DVT prophylaxis Current Visit: No Status: Acute (2) COPD (chronic obstructive pulmonary disease) Current Visit: No Status: Acute (3) Compression fracture of lumbar spine, non-traumatic Current Visit: Yes Status: Chronic (4) Left ureteral calculus Current Visit: Yes Status: Acute (5) Pleural effusion, right Current Visit: Yes Status: Acute (6) HTN (hypertension) Current Visit: No Status: Chronic (7) Pneumonia Current Visit: Yes Status: Acute - Time Spent with Patient Total time spent is greater than 50% in coordination of care (as documented) at patient's floor/unit and/or counseling patient: Internal Medicine: Result - Labs CBC & Chem 7: 01/12/18 03:43 01/12/18 03:43 Labs: Short CBC 01/12/18 Range/Units 03:43 WBC 6.3 (4.3-11.1) K/mcL Hgb 12.7 L (12.9-16.9) g/dL Hct 40.8 (37.5-50.1) % Plt Count 189 (140-400) K/mcL Neutrophils # 4.4 (1.6-8.9) K/mcL BMP 01/12/18 03:43 Sodium 137 Potassium 4.1 Chloride 102 Carbon Dioxide 29 BUN 17 Creatinine 0.89 Glucose 88 Calcium 8.5 L - Attending Attestation I examined this patient and my medical decision-making was reviewed with the Resident Physician on 01/12/18. I agree with the documented findings, disposition and treatment plan as described except to the extent set forth below. Mr Amor is currently in observation for compression fracture and pain. He remains moderate to high risk. Mr Amor is doing OK. Still with a lot of pain. Seen by pain management and conservative management recommended. No fever or chills. No CP or SOB. Exam alert Comfortable Mucus membranes dry Heart reg No wheeze Abd soft I/P 1. Compression fracture 2. HTN Further diagnoses and plan as above Anticipate return to [facility] tomorrow. <Micheal Corado - Last Filed: 01/12/18 17:45> (1) COPD (chronic obstructive pulmonary disease) Qualifiers: COPD type: unspecified COPD Qualified Code(s): J44.9 - Chronic obstructive pulmonary disease, unspecified (2) Compression fracture of lumbar spine, non-traumatic Qualifiers: Encounter type: subsequent encounter Lumbar vertebra fracture level: L2 Fracture healing: with routine healing Qualified Code(s): M48.56XD - Collapsed vertebra, not elsewhere classified, lumbar region, subsequent encounter for fracture with routine healing <Poncho Ramírez - Last Filed: 01/12/18 18:17> (2) COPD (chronic obstructive pulmonary disease) Qualifiers: COPD type: unspecified COPD Qualified Code(s): J44.9 - Chronic obstructive pulmonary disease, unspecified (3) Compression fracture of lumbar spine, non-traumatic Qualifiers: Encounter type: subsequent encounter Lumbar vertebra fracture level: L2 Fracture healing: with routine healing Qualified Code(s): M48.56XD - Collapsed vertebra, not elsewhere classified, lumbar region, subsequent encounter for fracture with routine healing (6) HTN (hypertension) Qualifiers: Hypertension type: essential hypertension Qualified Code(s): I10 - Essential (primary) hypertension (7) Pneumonia Qualifiers: Pneumonia type: due to unspecified organism Laterality: unspecified laterality Lung location: unspecified part of lung Qualified Code(s): J18.9 - Pneumonia, unspecified organism
[2018-01-13] MEDS: *HR* HYDROcodone/Acet 5/325 mg TABLET PO PRN ×3 (03:56→22:11)
[2018-01-13] MEDS: traMADol 50 MG TABLET PO PRN ×2 (05:30→09:47)
[2018-01-13] MEDS: *HR* Heparin 5,000 UNIT/ML VIAL SQ SCH ×3 (05:31→22:06)
[2018-01-13] MEDS: Cefepime HCl 2,000 MG in Water for inj. (sterile) 20 ML 20 ML IVP SCH ×2 (05:31→17:52)
[2018-01-13 05:59] LABS: Basophils % 0.4 %; Eosinophils # 0.2 K/mcL (0.0-0.6); Eosinophils % 2.1 %; Hematocrit 40.7 % (37.5-50.1); Hemoglobin 12.7 g/dL (12.9-16.9); Immature Granulocytes % 0.4 % (0-4); Lymphocytes # 1.1 K/mcL (0.6-4.6); Mean Corpuscular HGB Conc 31.2 g/dL (31.6-35.5); Mean Corpuscular Hemoglobin 28.9 pg (28.0-33.3); Mean Corpuscular Volume 92.7 fL (83.0-100.0); Monocytes # 0.8 K/mcL (0.0-1.3); Monocytes % 10.2 %; Neutrophils # 5.4 K/mcL (1.6-8.9); Platelet Count 184 K/mcL (140-400); Red Blood Count 4.39 M/mcL (4.19-5.50); Red Cell Distribution Width 13.6 % (11.5-14.5); Segmented Neutrophils % 71.9 %
[2018-01-13] MEDS: Budesonide/Formoterol 80/4.5 MDI IH SCH ×2 (07:39→22:00)
[2018-01-13] MEDS: Tiotropium 18 MCG inhalation IH SCH (07:39)
[2018-01-13] MEDS: predniSONE 20 MG TABLET PO SCH (09:47)
[2018-01-13] MEDS: Primidone 50 MG TABLET PO SCH ×2 (09:47→22:06)
--- NOTE | 2018-01-13 10:57 | Discharge Summary ---
<Poncho Ramírez - Last Filed: 01/13/18 15:09> Orders not resulted at time of discharge: Pending orders 01/10/18 19:36 Culture,Blood [BC] Stat - Discharge Diagnosis (1) DVT prophylaxis Status: Acute (2) HTN (hypertension) Status: Chronic Qualifiers: Hypertension type: essential hypertension Qualified Code(s): I10 - Essential (primary) hypertension (3) Pneumonia Status: Acute Qualifiers: Pneumonia type: due to unspecified organism Laterality: unspecified laterality Lung location: unspecified part of lung Qualified Code(s): J18.9 - Pneumonia, unspecified organism (4) COPD (chronic obstructive pulmonary disease) Status: Acute Qualifiers: COPD type: unspecified COPD Qualified Code(s): J44.9 - Chronic obstructive pulmonary disease, unspecified (5) Compression fracture of lumbar spine, non-traumatic Status: Chronic Qualifiers: Encounter type: subsequent encounter Lumbar vertebra fracture level: L2 Fracture healing: with routine healing Qualified Code(s): M48.56XD - Collapsed vertebra, not elsewhere classified, lumbar region, subsequent encounter for fracture with routine healing (6) Left ureteral calculus Status: Acute (7) Pleural effusion, right Status: Acute Hospital course: Mr. Amor is a 67 year old male Discharge discussed with: patient - Time Spent with Patient Total time spent providing and/or coordinating discharge services: 37min - Discharge Medications Prescriptions: Alendronate Sodium/Vitamin D3 [Fosamax Plus D 70 mg-2,800 Iu] 1 tab PO QWEEK #1 tab Cefdinir 250 mg PO ONCE 1 Days #1 mls Home Medications: Aspirin 81 mg PO DAILY #30 tab.chew 05/20/16 [Rx] Acetaminophen [Tylenol] 500 mg PO Q6H PRN 08/26/16 [History] Primidone [Mysoline] 50 mg PO BID 08/26/16 [History] Theophylline Anhydrous [Curt-24] 100 mg PO DAILY 10/04/16 [History] Docusate [Colace] 100 mg PO BID PRN 11/02/16 [History] Roflumilast [Daliresp] 500 mcg PO DAILY 11/02/16 [History] Buspirone HCl [Buspar] 15 mg PO BID 02/28/17 [History] GuaiFENesin ER [Mucinex] 600 mg PO Q12H PRN 02/28/17 [History] Calcium Carbonate [Calcium] 600 mg PO BIDWM 05/27/17 [History] Lovastatin 40 mg PO HS 05/27/17 [History] Sertraline [Zoloft] 50 mg PO DAILY 05/27/17 [History] Tiotropium [place] [Spiriva Respimat] 2 puff IH DAILY 05/27/17 [History] Metoprolol [Lopressor] 25 mg PO BID 06/06/17 [History] Mometasone/Formoterol [Dulera 100 Mcg/5 Mcg Inhaler] 2 puff IH BID 09/02/17 [History] Omeprazole [PriLOSEC] 20 mg PO DAILY 09/02/17 [History] Simethicone [Gas Relief] 180 mg PO Q4H PRN 09/02/17 [History] predniSONE [PredniSONE] 20 mg PO DAILY 09/02/17 [History] Calcitonin,[place],Synthetic [Calcitonin-[place]] 1 spr NS DAILY 12/16/17 [History] GuaiFENesin Liq [Robitussin Liq] 200 mg PO Q6HR PRN 12/16/17 [History] HYDROcodone/Acet 5/325 mg [[place] 5-325 mg] 1 tab PO Q6H PRN 12/16/17 [History] Ipratropium/Albuterol Neb [Duoneb] 3 ml IH QIDR PRN 12/16/17 [History] Tramadol HCl [Ultram] 50 - 100 mg PO QID PRN 12/16/17 [History] HYDROcodone/Acet 5/325 mg [[place] 5-325 mg] 1 tab PO Q4H PRN 01/10/18 [History] Ipratropium/Albuterol Neb [Duoneb] 3 ml IH Q4HR PRN 01/10/18 [History] Alendronate Sodium/Vitamin D3 [Fosamax Plus D 70 mg-2,800 Iu] 1 tab PO QWEEK #1 tab 01/13/18 [Rx] Cefdinir 250 mg PO ONCE 1 Days #1 mls 01/13/18 [Rx] Allergies/Adverse Reactions: Allergy/AdvReac Type Severity Reaction Status Date / Time azithromycin [From Zithromax] AdvReac See Verified 12/16/17 10:00 Comments hydrochlorothiazide AdvReac Difficulty Verified 12/16/17 10:00 Breathing ibuprofen [From Motrin] AdvReac Gastrointestinal Verified 12/16/17 10:00 Upset levofloxacin [From Levaquin] AdvReac See Verified 12/16/17 10:00 Comments Date of admission: 01/10/18 22:02 Primary care physician: PCP NONE Consults: 01/10/18 23:30 Consult to Orthopedic Surgery [CONS] Routine Consulting Provider: [facility] Reason for Consult: Compression Fracture L1-L2 Call Completed: No - Constitutional Vitals: Temp Pulse Resp BP Pulse Ox 97.6 F 68 14 118/66 97 01/13/18 14:43 01/13/18 14:43 01/13/18 14:43 01/13/18 14:43 01/13/18 14:43 - Patient Status Disposition: Home, Self-Care Condition: Fair - Discharge Instructions Follow Up With: NONE,PCP [Primary Care Provider] - Additional Instructions: - resume activities as tolerated - continue with bronchdilators for COPD - use incentive spirometry to rectify the V/Q mismatch secondary to atelectesis. - follow up with Dr. Patterson as an outpatient. - Attending Attestation I examined this patient and my medical decision-making was reviewed with the Resident Physician on 01/13/18. I agree with the documented findings, disposition and treatment plan as described except to the extent set forth below. Mr Amor has been admitted for back pain associated with compression fractures. He has been seen by pain management. Pursuing conservative management. He is afebrile and ready for discharge back to ECF. Exam alert Comfortable except with movement Mucus membranes dry Heart not tachy No wheeze Abd soft Plan D/C to ECF. Follow up with Dr. Patterson as arranged. <Micheal Corado - Last Filed: 01/13/18 22:08> - NOTES TO OUTPATIENT PROVIDER Notes to Outpatient Provider: - Consider tapering his prednisone because he's being prescribed Fosamax 70mg /weekly for his osteoporesis. - follow up with Dr. Patterson for his lumbar compression Frx. Orders not resulted at time of discharge: Pending orders 01/10/18 19:36 Culture,Blood [BC] Stat 01/13/18 10:53 XR lumbar spine 1V [XR] Stat Date of Encounter: 01/13/18 Time of Encounter: 09:00 - Discharge Diagnosis (1) DVT prophylaxis Priority: Secondary Status: Acute (2) HTN (hypertension) Priority: Secondary Status: Chronic Qualifiers: Hypertension type: essential hypertension Qualified Code(s): I10 - Essential (primary) hypertension (3) Pneumonia Priority: Secondary Status: Acute Qualifiers: Pneumonia type: due to unspecified organism Laterality: unspecified laterality Lung location: unspecified part of lung Qualified Code(s): J18.9 - Pneumonia, unspecified organism (4) COPD (chronic obstructive pulmonary disease) Priority: Secondary Status: Acute Qualifiers: COPD type: unspecified COPD Qualified Code(s): J44.9 - Chronic obstructive pulmonary disease, unspecified (5) Compression fracture of lumbar spine, non-traumatic Priority: Primary Status: Chronic Qualifiers: Encounter type: subsequent encounter Lumbar vertebra fracture level: L2 F racture healing: with routine healing Qualified Code(s): M48.56XD - Collapsed vertebra, not elsewhere classified, lumbar region, subsequent encounter for fracture with routine healing (6) Left ureteral calculus Priority: Secondary Status: Acute (7) Pleural effusion, right Priority: Secondary Status: Acute Hospital course: Mr. Amor is a 67 year old male with a PMHx of chronic COPD, L4 Frx s/p kypoplasty who was admitted to the floor because of L1-L2 compression Frx. Patient was seen by Dr. Patterson who he follows for his back pain and was found not to be a candidate for any surgical intervention. Patient was on PRN pain medications for back pain. Recommendations were made by Dr. Patterson to be discharged on Fosamax 70 mg /weekly to help with osteoporosis. Patient is on his day three of his hospital stay, and today he endorsed some worsening lower lumbar back pain and we did a repeat lumbar X ray. Results are pending. Patient will be following up with Dr Patterson for his back pain as an outpatient. - Time Spent with Patient Total time spent providing and/or coordinating discharge services: Date of admission: 01/10/18 22:02 Primary care physician: PCP NONE Consults: 01/10/18 23:30 Consult to Orthopedic Surgery [CONS] Routine Consulting Provider: [facility] Reason for Consult: Compression Fracture L1-L2 Call Completed: No - Constitutional Vitals: Temp Pulse Resp BP Pulse Ox 98.3 F 52 14 156/96 97 01/13/18 07:18 01/13/18 07:18 01/13/18 07:40 01/13/18 07:18 01/13/18 07:40 Exam: General: Alert and oriented 3; lying in bed in no acute distress Skin:Normal color, no rash, no lesions. HEENT:EOM, pupils equal, round and reactive. Cardiovascular:Normal S1 & S2, no rubs, murmurs or gallops. No JVD. Pulse regular. Lungs:Normal breath sounds, no wheezes or crackles. Abdomen:Soft, non-tender, no rigidity. Extremities:No deformity, no edema or tenderness, no numbness; no joint swelling or clubbing. Neurological:Normal cognition and motor skills. Pulses:Carotid and radial pulses normal +2. Musculoskeletal: Tenderness palpation along the lumbar spine at the level of L1- L2. - Patient Status Overall status at discharge: patient is progressing back to baseline - Diet and Activity Activity: resume usual activities as tolerated Diet: low fat, low cholesterol Addendum entered and electronically signed by Micheal Corado 01/16/18 17:12: Patient underwent L1-L2 kyphoplasty, no 01/15- tolerated the procedure well. The patient endorses his pain of 4 scale 1-10. He is on [place] for pain control. She has been instructed to follow-up with Dr. Patterson's office as an outpatient. She is being sent home on a prednisone long taper because of end- stage COPD \ Additional instructions: 1. allow bandages to stay on skin, do not remove. Dr. Patterson's office will take down bandages in 7-10 days. 2. Ok to wear back brace for comfort. 3. Encourage sit on side of bed as tolerated. 4. Continue to take prednisone with long taper as directed.
--- NOTE | 2018-01-13 19:36 | Pain Management Progress Note ---
Date of Encounter: 01/13/18 Time of Encounter: 16:26 - Assessment and Plan (1) Compression fracture of lumbar spine, non-traumatic Current Visit: Yes Status: Chronic I spoke with the resident about his plan of care. Gave my cellphone number as [phone]. Plan is to discuss case after PT/OT consult. Also call me if any other issues or problems. The newer fractures at L1 and L2 are stable since first being seen on 12.27.17. I looked at today's lumbar films and compared the height measurements to those from 12.27.17 lumbar films. No change in height. Exam now shows no pain over L1 and L2 but continued pain over L4 which was previously repaired with kyphoplasty. I recommend we get a PT/OT consult and determine if he can be somewhat function al. If he is bedridden because of pain, there would be an indication to perform further kyphoplasty at L1 and L2. However, most guidelines indicate conservative care is best. Conservative care would be bracing, ambulation, mild PT/OT, oral analgesics. I am also concerned that his pain still comes from L4 and not L1 and L2. Exam is reassuring at L1 and L2. Qualifiers: Encounter type: subsequent encounter Lumbar vertebra fracture level: L2 Fracture healing: with routine healing Qualified Code(s): M48.56XD - Collapsed vertebra, not elsewhere classified, lumbar region, subsequent encounter for fracture with routine healing Subjective Patient reports: no new complaints (Feels pain in lower back, not higher back, 2/10 while sitting, higher when moving, not out of bed today, no radiating pain, pain worse since one week, able to eat and drink despite pain), voiding w/o difficulty, afebrile Objective Vital Signs - Last 8 Hours Temp Pulse Resp BP Pulse Ox 01/13/18 14:43 97.6 F 68 14 118/66 97 01/13/18 10:30 97.8 F 76 15 124/69 96 Intake and Output 01/13/18 01/13/18 01/13/18 07:59 15:59 23:59 Intake Total 0 / 0 960 / 960 Output Total 450 / 450 250 / 250 Balance -450 / -450 710 / 710 Intake: Oral 0 / 0 960 / 960 Output: Urine 100 / 100 Catheter 350 / 350 250 / 250 Other: Meal Lunch Percent of Meal Consumed 100% Weight 86 kg Patient Weight 01/13/18 23:59 Weight 86 kg - General physical appearance well developed - Eyes PERRL, normal ocular movement - Respiratory normal expansion, normal respiratory effort, clear to percussion - Neurologic other (normal sensation in lower limbs) - Musculoskeletal other (pain over L4 identified by scar. No pain over L1 or L2 spinous process, no pain with percussion of spine.) - Psychiatric oriented to time, oriented to person, oriented to place, other (talkative) - Labs 01/13/18 05:47 01/12/18 03:43 Consult Discharge Plan - Plan Additional Instructions: - resume activities as tolerated - continue with bronchdilators for COPD - use incentive spirometry to rectify the V/Q mismatch secondary to atelectesis. - follow up with Dr. Patterson as an outpatient. Referrals: NONE,PCP [Primary Care Provider] - Prescriptions: Alendronate Sodium/Vitamin D3 [Fosamax Plus D 70 mg-2,800 Iu] 1 tab PO QWEEK #1 tab Cefdinir 250 mg PO ONCE 1 Days #1 mls
--- NOTE | 2018-01-13 19:40 | Event Note ---
Date of Encounter: 01/13/18 Time of Encounter: 09:30 I examined this patient and my medical decision-making was reviewed with the Resident Physician on 01/13/18. I agree with the documented findings, disposition and treatment plan as described except to the extent set forth below. Mr Amor is currently admitted for acute compression fracture lumbar area with increased pain. He remains moderate to high risk. Mr Amor continues to have pain. It is worse when he moves. No fever or chills. No cough now. Exam alert Mild distress with movement Mucus membranes dry Heart reg No wheeze abd soft I/P 1. Lumbar compression fracture - reeval today 2. Back pain 3. Pneumonia Further diagnoses and plan as per progress note today.
[2018-01-14] MEDS: Cefepime HCl 2,000 MG in Water for inj. (sterile) 20 ML 20 ML IVP SCH ×2 (05:03→19:20)
[2018-01-14 06:08] LABS: Hemoglobin 12.6 g/dL (12.9-16.9); Mean Corpuscular HGB Conc 30.7 g/dL (31.6-35.5); Mean Corpuscular Hemoglobin 29.5 pg (28.0-33.3); Mean Platelet Volume 9.9 fL (9.4-12.4); Platelet Count 188 K/mcL (140-400); Red Blood Count 4.27 M/mcL (4.19-5.50); Red Cell Distribution Width 13.6 % (11.5-14.5)
[2018-01-14 06:16] LABS: INR 1.1; Prothrombin Time 11.9 Seconds (9.4-12.1)
[2018-01-14 06:27] LABS: BUN/Creatinine Ratio 19 (6-26); Blood Urea Nitrogen 20 mg/dL (8-23); Calcium 8.7 mg/dL (8.6-10.3); Carbon Dioxide 31 mEq/L (23-29); Chloride 106 mEq/L (98-107); Glucose 112 mg/dL (70-105); Osmolality,Calculated 297 (280-300); Potassium 4.1 mEq/L (3.5-5.1); Sodium 142 mEq/L (136-145); eGFR For Non-African Americans > 60 (> 60)
--- NOTE | 2018-01-14 07:36 | Internal Med Progress Note ---
<Oneil Hsu - Last Filed: 01/14/18 18:06> Hospitalist Progress Note - Encounter Date of Encounter: 01/14/18 Time of Encounter: 08:00 - Subjective Interval History: Patient discharge was postponed because he is unable to up in bed without severe pain. Physical/ occupational therapy assessment today determined patient was not functional enough to go back to [facility] facility. Patient denies loss of bowel or bladder function or saddle anesthesia. Stat MRI lumbar spine ordered. Depending on MRI results, Dr. Patterson may performed intervention today or tomorrow. Patient remains NPO. - Exam Vitals: Temp Pulse Resp BP Pulse Ox 98.4 F 57 16 161/81 97 01/14/18 03:12 01/14/18 03:12 01/14/18 03:12 01/14/18 03:12 01/14/18 03:12 Exam: General: Alert and oriented 3, lying in bed in no acute distress, moderate distress with sitting for Skin:Normal color, no rash, no lesions. HEENT:EOMI, pupils equal, round and reactive. Cardiovascular:Normal S1 & S2, no rubs, murmurs or gallops. No JVD. Pulse regular. Lungs:Normal breath sounds, no wheezes or crackles. Abdomen:Soft, non-tender, no rigidity. Extremities:No deformity, no edema or tenderness, no numbness; no joint swelling or clubbing. Neurological:Normal cognition and motor skills. Pulses:Carotid and radial pulses normal +2. Musculoskeletal: Tenderness TO palpation along the lumbar spine at the level of L1-L2, moderate distress with sitting or moving legs off side of bed - Assessment and Plan (1) Compression fracture of lumbar spine, non-traumatic Current Visit: Yes Status: Chronic Assessment and Plan: Lumbar CT showed L1-L2 compression fracture of indeterminate age but new since 09/11/2017. Dr. Patterson's recommended to starting Fosamax 70 mg weekly Patient discharge was postponed because he is unable to up in bed without severe pain. Physical/ occupational therapy assessment today determined patient was not functional. Stat MRI lumbar spine ordered. Depending on results, Dr. Patterson may performed intervention today or tomorrow. Patient remains NPO. (2) HTN (hypertension) Current Visit: No Status: Chronic Assessment and Plan: Continue Metoprolol Continue monitoring (3) COPD (chronic obstructive pulmonary disease) Current Visit: No Status: Chronic Assessment and Plan: Patient has a history of COPD. During this admission he does not appear to be an exacerbation of COPD. No worsening cough productive sputum or shortness of breath. Currently on DuoNeb's, symbiort 2 puffs BID, spiriva, and prednisone 20 mg. (4) Left ureteral calculus Current Visit: Yes Status: Acute Assessment and Plan: CT showed 3 mm proximal left ureteral stone noted on CT of spine. Patient currently asymptomatic. No indication for any invasive procedure because of the size of the stone. Continue to monitor. (5) Pneumonia Current Visit: Yes Status: Acute Assessment and Plan: CT thoracic showed Right lower lobe consolidation and small right pleural effusion Patient completed 7 day course of Cefepime Continue incentive spirometry - Time Spent with Patient Total time spent is greater than 50% in coordination of care (as documented) at patient's floor/unit and/or counseling patient: Internal Medicine: Result - Labs CBC & Chem 7: 01/14/18 05:15 01/14/18 05:15 Labs: Short CBC 01/14/18 Range/Units 05:15 WBC 6.3 (4.3-11.1) K/mcL Hgb 12.6 L (12.9-16.9) g/dL Hct 41.0 (37.5-50.1) % Plt Count 188 (140-400) K/mcL BMP 01/14/18 05:15 Sodium 142 Potassium 4.1 Chloride 106 Carbon Dioxide 31 H BUN 20 Creatinine 1.03 Glucose 112 H Calcium 8.7 - ABG Interpretation ABG results: PT/INR, D-dimer PT 11.9 Seconds (9.4-12.1) 01/14/18 05:15 - Pulse Oximetry Interpretation Digit-Finger Pulse Oximetry Readin (Room air) - Impressions Impressions Lumbar Spine CT 01/10/18 16:17 IMPRESSION: L1-L2 compression fractures of indeterminate age but new since September 11, 2017. Interval progression of loss of height of the L4 compression fracture which was present on the prior study. Right lower lobe consolidation and small right pleural effusion. Correlation for pneumonia is recommended. Follow-up to resolution is recommended. 3 mm proximal left ureteral stone with mild prominence of the proximal left ureter. D/ / Anabel Caro Cha, MD / Anabel Caro Cha, MD Interpreting Provider: Anabel Caro Cha, MD Thoracic Spine CT 01/10/18 16:17 IMPRESSION: L1-L2 compression fractures of indeterminate age but new since September 11, 2017. Interval progression of loss of height of the L4 compression fracture which was present on the prior study. Right lower lobe consolidation and small right pleural effusion. Correlation for pneumonia is recommended. Follow-up to resolution is recommended. 3 mm proximal left ureteral stone with mild prominence of the proximal left ureter. D/ / Anabel Caro Cha, MD / Anabel Caro Cha, MD Interpreting Provider: Anabel Caro Cha, MD Chest X-Ray 01/10/18 19:19 IMPRESSION: Bibasilar lung aeration overall improved from August 2017. D/ / Mark Maguire MD / Mark Maguire MD Interpreting Provider: Mark Maguire MD Lumbar Spine X-Ray 01/13/18 10:53 IMPRESSION: 1. Stable appearance since 12/27/2017 of the lumbar spine including compression deformities of T12, L2, and L4. 2. Mild degenerative changes as described. 3. Bony demineralization. D/ / 01/13/2018 11:49:24 Laura Johnson MD / Shantell Hernandez Interpreting Provider: Laura Johnson MD Lumbar Spine MRI 01/14/18 13:52 IMPRESSION: Compression fracture deformities involving L1 and L. There is also suggested microfracture involving the upper endplate of L3 at the midline and left of midline. There is no significant loss of height. Old fracture of L4 Multilevel degenerative disc disease as described. See above for details. D/ / Bertin Deutsch / Bertin Deutsch Interpreting Provider: Bertin Deutsch Consult Discharge Plan - Plan Additional Instructions: - resume activities as tolerated - continue with bronchdilators for COPD - use incentive spirometry to rectify the V/Q mismatch secondary to atelectesis. - follow up with Dr. Patterson as an outpatient. Referrals: NONE,PCP [Primary Care Provider] - Prescriptions: Alendronate Sodium/Vitamin D3 [Fosamax Plus D 70 mg-2,800 Iu] 1 tab PO QWEEK #1 tab <Poncho Ramírez - Last Filed: 01/14/18 18:40> Hospitalist Progress Note - Exam Vitals: Temp Pulse Resp BP Pulse Ox 98.6 F 59 17 147/86 94 01/14/18 15:16 01/14/18 15:16 01/14/18 15:16 01/14/18 15:16 01/14/18 15:16 - Assessment and Plan (1) HTN (hypertension) Current Visit: No Status: Chronic (2) COPD (chronic obstructive pulmonary disease) Current Visit: No Status: Chronic (3) Compression fracture of lumbar spine, non-traumatic Current Visit: Yes Status: Chronic (4) Left ureteral calculus Current Visit: Yes Status: Acute (5) Pneumonia Current Visit: Yes Status: Resolved - Time Spent with Patient Total time spent is greater than 50% in coordination of care (as documented) at patient's floor/unit and/or counseling patient: Internal Medicine: Result - Labs CBC & Chem 7: 01/14/18 05:15 01/14/18 05:15 Labs: Short CBC 01/14/18 Range/Units 05:15 WBC 6.3 (4.3-11.1) K/mcL Hgb 12.6 L (12.9-16.9) g/dL Hct 41.0 (37.5-50.1) % Plt Count 188 (140-400) K/mcL BMP 01/14/18 05:15 Sodium 142 Potassium 4.1 Chloride 106 Carbon Dioxide 31 H BUN 20 Creatinine 1.03 Glucose 112 H Calcium 8.7 - ABG Interpretation ABG results: PT/INR, D-dimer PT 11.9 Seconds (9.4-12.1) 01/14/18 05:15 - Impressions Impressions Lumbar Spine X-Ray 01/13/18 10:53 IMPRESSION: 1. Stable appearance since 12/27/2017 of the lumbar spine including compression deformities of T12, L2, and L4. 2. Mild degenerative changes as described. 3. Bony demineralization. D/ / 01/13/2018 11:49:24 Laura Johnson MD / Shantell Hernandez Interpreting Provider: Laura Johnson MD Lumbar Spine MRI 01/14/18 13:52 IMPRESSION: Compression fracture deformities involving L1 and L. There is also suggested microfracture involving the upper endplate of L3 at the midline and left of midline. There is no significant loss of height. Old fracture of L4 Multilevel degenerative disc disease as described. See above for details. D/ / Bertin Deutsch / Bertin Deutsch Interpreting Provider: Bertin Deutsch - Attending Attestation I examined this patient and my medical decision-making was reviewed with the Resident Physician on 01/14/18. I agree with the documented findings, disposition and treatment plan as described except to the extent set forth below. Mr Amor is currently in observation for back pain. He remains moderate to high risk at this time. Mr Amor was not discharged due to continued pain. He has been unable to move. Appreciate input from Dr. Patterson. MRI to be done today. Exam alert Comfortable lying flat Mucus membranes dry Heart reg No wheeze abd soft I/P 1. Compression fracture lumbar spine 2. Pain Further diagnoses and plan as above. <Oneil Hsu - Last Filed: 01/14/18 18:06> (1) Compression fracture of lumbar spine, non-traumatic Qualifiers: Encounter type: subsequent encounter Lumbar vertebra fracture level: L2 Fracture healing: with routine healing Qualified Code(s): M48.56XD - Collapsed vertebra, not elsewhere classified, lumbar region, subsequent encounter for fracture with routine healing (2) HTN (hypertension) Qualifiers: Hypertension type: essential hypertension Qualified Code(s): I10 - Essential (primary) hypertension (3) COPD (chronic obstructive pulmonary disease) Qualifiers: COPD type: unspecified COPD Qualified Code(s): J44.9 - Chronic obstructive pulmonary disease, unspecified <Brandon Ramírezin Oly - Last Filed: 01/14/18 18:40> (1) HTN (hypertension) Qualifiers: Hypertension type: essential hypertension Qualified Code(s): I10 - Essential (primary) hypertension (2) COPD (chronic obstructive pulmonary disease) Qualifiers: COPD type: unspecified COPD Qualified Code(s): J44.9 - Chronic obstructive pulmonary disease, unspecified (3) Compression fracture of lumbar spine, non-traumatic Qualifiers: Encounter type: subsequent encounter Lumbar vertebra fracture level: L2 Fracture healing: with routine healing Qualified Code(s): M48.56XD - Collapsed vertebra, not elsewhere classified, lumbar region, subsequent encounter for fracture with routine healing (5) Pneumonia Qualifiers: Pneumonia type: due to other aerobic Gram-negative bacteria Laterality: right Lung location: lower lobe of lung Qualified Code(s): J15.6 - Pneumonia due to other Gram-negative bacteria
[2018-01-14] MEDS: Budesonide/Formoterol 80/4.5 MDI IH SCH ×2 (08:01→20:37)
[2018-01-14] MEDS: Tiotropium 18 MCG inhalation IH SCH (08:02)
[2018-01-14] MEDS: predniSONE 20 MG TABLET PO SCH (08:25)
[2018-01-14] MEDS: Primidone 50 MG TABLET PO SCH ×2 (08:26→21:07)
[2018-01-14] MEDS: *HR* HYDROcodone/Acet 5/325 mg TABLET PO PRN ×2 (15:18→21:07)
--- NOTE | 2018-01-14 21:43 | Electrocardiograph Report ---
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
[2018-01-15] MEDS: Cefepime HCl 2,000 MG in Water for inj. (sterile) 20 ML 20 ML IVP SCH ×2 (04:50→18:26)
[2018-01-15] MEDS: *HR* HYDROcodone/Acet 5/325 mg TABLET PO PRN ×4 (04:50→22:51)
[2018-01-15 05:34] LABS: Hematocrit 39.3 % (37.5-50.1); Hemoglobin 12.4 g/dL (12.9-16.9)
[2018-01-15 05:44] LABS: INR 1.1; Prothrombin Time 12.1 Seconds (9.4-12.1)
--- NOTE | 2018-01-15 07:22 | History & Physical Report ---
Date of Encounter: 01/15/18 Time of Encounter: 08:06 24 Hour HP Update - Instructions Instructions: If the History and Physical is less than 30 days old and was completed prior to A.M. admission and or procedure and has NOT been updated on calendar day of procedure please complete this update prior to performing procedure. - Update Patient reports changes in Medical Condition: No Changes in examination, assessment, or condition: No Changes in Medication: No Preop tests/diagnostics Reviewed: Yes Pre-Op MRSA Screen: Negative Surgery Remains Indicated: Yes Consent for Planned Operative Procedure(s) Verified: Yes Additions to current History and Physical: New MRI shows worsening fractures at L1,L2,L3. Kyphoplasty indicated.
--- NOTE | 2018-01-15 07:30 | Anesthesia Evaluation PreOp ---
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 History: CVA, Other (benign essential tremor) Other Medical History: Hepatic (hep C?), Renal (stones) Anesthesia History: No Prior Anesthetic Complications Alcohol Use: none Drug use: none Medications and Allergies Aspirin 81 mg PO DAILY #30 tab.chew 05/20/16 [Rx] Acetaminophen [Tylenol] 500 mg PO Q6H PRN 08/26/16 [History] Primidone [Mysoline] 50 mg PO BID 08/26/16 [History] Theophylline Anhydrous [Curt-24] 100 mg PO DAILY 10/04/16 [History] Docusate [Colace] 100 mg PO BID PRN 11/02/16 [History] Roflumilast [Daliresp] 500 mcg PO DAILY 11/02/16 [History] Buspirone HCl [Buspar] 15 mg PO BID 02/28/17 [History] GuaiFENesin ER [Mucinex] 600 mg PO Q12H PRN 02/28/17 [History] Calcium Carbonate [Calcium] 600 mg PO BIDWM 05/27/17 [History] Lovastatin 40 mg PO HS 05/27/17 [History] Sertraline [Zoloft] 50 mg PO DAILY 05/27/17 [History] Tiotropium [place] [Spiriva Respimat] 2 puff IH DAILY 05/27/17 [History] Metoprolol [Lopressor] 25 mg PO BID 06/06/17 [History] Mometasone/Formoterol [Dulera 100 Mcg/5 Mcg Inhaler] 2 puff IH BID 09/02/17 [History] Omeprazole [PriLOSEC] 20 mg PO DAILY 09/02/17 [History] Simethicone [Gas Relief] 180 mg PO Q4H PRN 09/02/17 [History] predniSONE [PredniSONE] 20 mg PO DAILY 09/02/17 [History] Calcitonin,[place],Synthetic [Calcitonin-[place]] 1 spr NS DAILY 12/16/17 [History] GuaiFENesin Liq [Robitussin Liq] 200 mg PO Q6HR PRN 12/16/17 [History] HYDROcodone/Acet 5/325 mg [[place] 5-325 mg] 1 tab PO Q6H PRN 12/16/17 [History] Ipratropium/Albuterol Neb [Duoneb] 3 ml IH QIDR PRN 12/16/17 [History] Tramadol HCl [Ultram] 50 - 100 mg PO QID PRN 12/16/17 [History] HYDROcodone/Acet 5/325 mg [[place] 5-325 mg] 1 tab PO Q4H PRN 01/10/18 [History] Ipratropium/Albuterol Neb [Duoneb] 3 ml IH Q4HR PRN 01/10/18 [History] Alendronate Sodium/Vitamin D3 [Fosamax Plus D 70 mg-2,800 Iu] 1 tab PO QWEEK #1 tab 01/13/18 [Rx] Allergy/AdvReac Type Severity Reaction Status Date / Time azithromycin [From Zithromax] AdvReac See Verified 12/16/17 10:00 Comments hydrochlorothiazide AdvReac Difficulty Verified 12/16/17 10:00 Breathing ibuprofen [From Motrin] AdvReac Gastrointestinal Verified 12/16/17 10:00 Upset levofloxacin [From Levaquin] AdvReac See Verified 12/16/17 10:00 Comments - Meds/Allergy Pre-op Review Medications Reviewed: Yes Allergies Reviewed: Yes Beta Blockers on Current Med List: Yes If Beta Blockers taken, Date/Time (Last Dose taken): 01-14-18 metoprolol @ 21:07 Anesthesia Results - Labs 01/15/18 05:05 01/14/18 05:15 - Imaging EKG: report reviewed, image reviewed (Sinus rhythm Atrial premature complex) Additional studies: -2017 TTE: Impressions: LVEF 60%. Normal LV chamber size, wall thickness and function. Normal right ventricular structure and function. No significant valvular dysfunction. No pulmonary hypertension. Anesthesia Exam Last Vital Signs Temp 97.8 F 01/15/18 05:05 Pulse 56 01/15/18 05:05 Resp 17 01/15/18 05:05 BP 129/63 01/15/18 05:05 Pulse Ox 94 01/15/18 05:05 Weight: 88 kg NPO (# of Hours): > 8 hrs - HEENT Pupil (Motor): Pupils equal, EOMI Mallampati: II Teeth: Edentulous Oral Opening: Greater than 3 - BREAD RACKER LOC: Oriented - Cardiac Rhythm: Regular Murmur: None - Pulmonary Breath Sounds: bilateral Clear Respiratory Effort: Symmetrical Anesthesia Assess/Plan ASA Score: 4 Modified Reggie Scale for Level of Consciousness: Cooperative, oriented, and tranquil Anesthetic Plan: General Monitoring Plan: Standard Monitors Recovery Plan: PACU
[2018-01-15] MEDS ORDERED: Isovue-300 30 ML VIAL ONE (07:31)
[2018-01-15] MEDS ORDERED: *HR* Propofol 200 MG/20 ML VIAL IVP ONE (07:39)
[2018-01-15] MEDS ORDERED: *HR* FentaNYL (PF) 100 MCG/2 ML VIAL ONE (07:39)
[2018-01-15] MEDS ORDERED: Lidocaine -MPF 2% 2 ML VIAL ONE (07:40)
[2018-01-15] MEDS ORDERED: *HR* Rocuronium Bromide 50 MG/5 ML VIAL ONE (07:40)
[2018-01-15] MEDS ORDERED: Ondansetron 4 MG/2 ML VIAL ONE (07:41)
[2018-01-15] MEDS ORDERED: Dexamethasone 4 MG/ML VIAL ONE (07:41)
--- NOTE | 2018-01-15 08:00 | Internal Med Progress Note ---
<Poncho Ramírez Oly - Last Filed: 01/15/18 14:44> Hospitalist Progress Note - Exam Vitals: Temp Pulse Resp BP Pulse Ox 97.6 F 75 12 139/77 97 01/15/18 11:45 01/15/18 11:45 01/15/18 11:45 01/15/18 11:45 01/15/18 11:45 - Assessment and Plan (1) HTN (hypertension) Current Visit: No Status: Chronic (2) COPD (chronic obstructive pulmonary disease) Current Visit: No Status: Chronic (3) Compression fracture of lumbar spine, non-traumatic Current Visit: Yes Status: Chronic (4) Left ureteral calculus Current Visit: Yes Status: Acute (5) Pneumonia Current Visit: Yes Status: Resolved - Time Spent with Patient Total time spent is greater than 50% in coordination of care (as documented) at patient's floor/unit and/or counseling patient: Internal Medicine: Result - Labs CBC & Chem 7: 01/15/18 05:05 01/14/18 05:15 Labs: Short CBC 01/15/18 Range/Units 05:05 Hgb 12.4 L (12.9-16.9) g/dL Hct 39.3 (37.5-50.1) % - ABG Interpretation ABG results: PT/INR, D-dimer PT 12.1 Seconds (9.4-12.1) 01/15/18 05:05 - Impressions Impressions Lumbar Spine MRI 01/14/18 13:52 IMPRESSION: Compression fracture deformities involving L1 and L. There is also suggested microfracture involving the upper endplate of L3 at the midline and left of midline. There is no significant loss of height. Old fracture of L4 Multilevel degenerative disc disease as described. See above for details. D/ / Bertin Deutsch / Bertin Deutsch Interpreting Provider: Bertin Deutsch Fluoroscopy 01/15/18 08:00 IMPRESSION: Upper lumbar spine vertebroplasty. Refer to report. D/ / 01/15/2018 12:10:38 Dylon Meier MD / [facility] Interpreting Provider: Dylon Meier MD Lumbar Spine X-Ray 01/15/18 08:00 IMPRESSION: Intraprocedural fluoroscopic spot images as above. See separate procedure report for more information. D/ / 01/15/2018 11:31:02 Dylon Meier MD / Sh[facility] Interpreting Provider: Dylon Meier MD Xray Preliminary Report 01/15/18 08:00 IMPRESSION: Intraprocedural fluoroscopic spot images as above. See separate procedure report for more information. D/ / 01/15/2018 11:31:02 Dylon Meier MD / Shantell Hernandez Interpreting Provider: Dylon Meier MD Consult Discharge Plan - Plan Additional Instructions: - resume activities as tolerated - continue with bronchdilators for COPD - use incentive spirometry to rectify the V/Q mismatch secondary to atelectesis. - follow up with Dr. Patterson as an outpatient. Wound Care:: NO ANTICOAGULANTS OF ANY KIND (ASA, NSAID INCLUDED) FOR 24 HOURS AFTER SURGERY 1. allow bandages to stay on skin, do not remove. My office will take down bandages in 7-10 days. 2. Our spine coordinator, Nina Vang, will make the patient a follow up appointment with me in office in 7-10 days. 3. Continue oral pain medication PRN through hospital discharge if needed. 4. Ok to wear back brace for comfort. 5. Encourage sit on side of bed as tolerated. 6. I want PT to evaluate 24 hours after surgery to see if he is more functional. 7. If doing well, ok to discharge back to living facility. Referrals: NONE,PCP [Primary Care Provider] - - Attending Attestation I examined this patient and my medical decision-making was reviewed with the Resident Physician on 01/15/18. I agree with the documented findings, disp osition and treatment plan as described except to the extent set forth below. Mr Amor is currently admitted for severe back pain related to compression fractures. He had repeat kyphoplasty today. He remains moderate to high risk due to potential for worsening clinical status. Mr Amor went to OR today. No fever or chills. No CP or SOB. No GI issues. Exam alert Comfortable post op Mucus membranes dry Heart not tachy No wheeze Abd soft I/P 1. Lumbar compression fractures d/p kyphoplasty Further diagnoses and plan as above. Anticipate d/c tomorrow if stable. <Oneil Hsu - Last Filed: 01/15/18 17:14> Hospitalist Progress Note - Encounter Date of Encounter: 01/15/18 Time of Encounter: 11:45 - Subjective Interval History: Patient discharge was postponed because he was unable to sit up in bed without severe pain. Patient underwent kyphoplasty procedure on 01/15/18. Patient returned operating room in stable condition. Patient will continue to work with physical therapy prior to discharge back to residential facility - Exam Vitals: Temp Pulse Resp BP Pulse Ox 97.8 F 56 17 129/63 94 01/15/18 05:05 01/15/18 05:05 01/15/18 05:05 01/15/18 05:05 01/15/18 05:05 Exam: General: Alert and oriented 3, lying in bed in no acute distress Skin: Normal color, no rash, no lesions. HEENT: EOMI, pupils equal, round and reactive. Cardiovascular: RRR, Normal S1 & S2, no rubs, murmurs or gallops. No JVD. Pulse regular. Lungs: Normal breath sounds, no wheezes or crackles. Abdomen: Soft, non-tender, no rigidity. Extremities: No deformity, no edema or tenderness, no numbness; no joint swelling or clubbing. Neurological: Normal cognition and motor skills. Pulses: Carotid and radial pulses normal +2. Musculoskeletal: Tenderness to palpation along the lumbar spine at the level of L-spine - Assessment and Plan (1) Compression fracture of lumbar spine, non-traumatic Current Visit: Yes Status: Chronic Assessment and Plan: 01/10/[address] showed L1-L2 compression fracture of indeterminate age but new since 09/11/2017. Dr. Patterson's recommended to starting Fosamax 70 mg weekly upon discharge Patient discharge was postponed because he was unable to up in bed without severe pain. Physical/ occupational therapy assessment determined patient was not functional to return to residential facility. 01/14/18 MRI lumbar spine revealed acute compression abnormalities of L1-L3 Patient underwent kyphoplasty at L1-L3 on 01/15/[address] Patterson Patient will continue to participate in physical therapy/ occupational therapy Anticipate return to SNF tomorrow if condition stable. (2) Pneumonia Current Visit: Yes Status: Resolved Assessment and Plan: CT thoracic showed Right lower lobe consolidation and small right pleural effusion Patient completed 7 day course of Cefepime Continue incentive spirometry (3) COPD (chronic obstructive pulmonary disease) Current Visit: No Status: Chronic Assessment and Plan: Patient has a history of COPD. During this admission he does not appear to be an exacerbation of COPD. No worsening cough productive sputum or shortness of breath. Currently on DuoNeb's, symbiort 2 puffs BID, spiriva, and prednisone 20 mg. (4) HTN (hypertension) Current Visit: No Status: Chronic Assessment and Plan: Continue Metoprolol Continue monitoring (5) Left ureteral calculus Current Visit: Yes Status: Acute Assessment and Plan: CT showed 3 mm proximal left ureteral stone noted on CT of spine. Patient currently asymptomatic. No indication for any invasive procedure because of the size of the stone. Continue to monitor. - Time Spent with Patient Total time spent is greater than 50% in coordination of care (as documented) at patient's floor/unit and/or counseling patient: Internal Medicine: Result - Labs CBC & Chem 7: 01/15/18 05:05 01/14/18 05:15 Labs: Short CBC 01/15/18 Range/Units 05:05 Hgb 12.4 L (12.9-16.9) g/dL Hct 39.3 (37.5-50.1) % - ABG Interpretation ABG results: PT/INR, D-dimer PT 12.1 Seconds (9.4-12.1) 01/15/18 05:05 - Impressions Impressions Lumbar Spine MRI 01/14/18 13:52 IMPRESSION: Compression fracture deformities involving L1 and L. There is also suggested microfracture involving the upper endplate of L3 at the midline and left of midline. There is no significant loss of height. Old fracture of L4 Multilevel degenerative disc disease as described. See above for details. D/ / Bertin Deutsch / Bertin Deutsch Interpreting Provider: Bertin Deutsch <Poncho Ramírez - Last Filed: 01/15/18 14:44> (1) HTN (hypertension) Qualifiers: Hypertension type: essential hypertension Qualified Code(s): I10 - Essential (primary) hypertension (2) COPD (chronic obstructive pulmonary disease) Qualifiers: COPD type: unspecified COPD Qualified Code(s): J44.9 - Chronic obstructive pulmonary disease, unspecified (3) Compression fracture of lumbar spine, non-traumatic Qualifiers: Encounter type: subsequent encounter Lumbar vertebra fracture level: L2 Fracture healing: with routine healing Qualified Code(s): M48.56XD - Collapsed vertebra, not elsewhere classified, lumbar region, subsequent encounter for fracture with routine healing (5) Pneumonia Qualifiers: Pneumonia type: due to other aerobic Gram-negative bacteria Laterality: right Lung location: lower lobe of lung Qualified Code(s): J15.6 - Pneumonia due to other Gram-negative bacteria <Oneil Hsu - Last Filed: 01/15/18 17:14> (1) Compression fracture of lumbar spine, non-traumatic Qualifiers: Encounter type: subsequent encounter Lumbar vertebra fracture level: L2 Fracture healing: with routine healing Qualified Code(s): M48.56XD - Collapsed vertebra, not elsewhere classified, lumbar region, subsequent encounter for fracture with routine healing (2) Pneumonia Qualifiers: Pneumonia type: due to other aerobic Gram-negative bacteria Laterality: right Lung location: lower lobe of lung Qualified Code(s): J15.6 - Pneumonia due to other Gram-negative bacteria (3) COPD (chronic obstructive pulmonary disease) Qualifiers: COPD type: unspecified COPD Qualified Code(s): J44.9 - Chronic obstructive pulmonary disease, unspecified (4) HTN (hypertension) Qualifiers: Hypertension type: essential hypertension Qualified Code(s): I10 - Essential (primary) hypertension
[2018-01-15] MEDS ORDERED: EPHEDrine 50 MG/ML VIAL ONE ×2 (08:36→09:33)
[2018-01-15] MEDS ORDERED: Bupivacaine/EPI 1:200k 0.25%PF 30 ML VIAL ONE (08:52)
[2018-01-15] MEDS ORDERED: Isovue-M 200 10 ML VIAL ONE ×2 (08:52→09:47)
[2018-01-15] MEDS ORDERED: *HR* OxyCODONE/APAP 5/325 TABLET PO PRN (08:55)
[2018-01-15] MEDS ORDERED: Ondansetron 4 MG/2 ML VIAL IVP ONE (08:55)
[2018-01-15] MEDS ORDERED: *HR* HYDROmorphone (PF) 1 MG/ML SYRINGE IVP PRN (08:55)
[2018-01-15] MEDS ORDERED: KETAMINE HCL 50 MG/ML SYRINGE IV ONE (09:54)
[2018-01-15] MEDS ORDERED: *HR* Magnesium Sulfate 1 GM/2 ML VIAL ONE (09:58)
[2018-01-15] MEDS ORDERED: Neostigmine Methylsulfate 3 MG/3 ML SYRINGE ONE (10:35)
[2018-01-15] MEDS: Tiotropium 18 MCG inhalation IH SCH (10:38)
[2018-01-15] MEDS: Budesonide/Formoterol 80/4.5 MDI IH SCH ×2 (10:38→20:50)
--- NOTE | 2018-01-15 10:53 | Discharge Summary ---
Outpatient Proc Discharge Plan - Plan Additional Instructions: - resume activities as tolerated - continue with bronchdilators for COPD - use incentive spirometry to rectify the V/Q mismatch secondary to atelectesis. - follow up with Dr. Patterson as an outpatient. Wound Care:: NO ANTICOAGULANTS OF ANY KIND (ASA, NSAID INCLUDED) FOR 24 HOURS AFTER SURGERY 1. allow bandages to stay on skin, do not remove. My office will take down bandages in 7-10 days. 2. Our spine coordinator, Nina Vang, will make the patient a follow up appointment with me in office in 7-10 days. 3. Continue oral pain medication PRN through hospital discharge if needed. 4. Ok to wear back brace for comfort. 5. Encourage sit on side of bed as tolerated. 6. I want PT to evaluate 24 hours after surgery to see if he is more functional. 7. If doing well, ok to discharge back to living facility. Prescriptions: Alendronate Sodium/Vitamin D3 [Fosamax Plus D 70 mg-2,800 Iu] 1 tab PO QWEEK #1 tab Home Medications: Aspirin 81 mg PO DAILY #30 tab.chew 05/20/16 [Rx] Acetaminophen [Tylenol] 500 mg PO Q6H PRN 08/26/16 [History] Primidone [Mysoline] 50 mg PO BID 08/26/16 [History] Theophylline Anhydrous [Curt-24] 100 mg PO DAILY 10/04/16 [History] Docusate [Colace] 100 mg PO BID PRN 11/02/16 [History] Roflumilast [Daliresp] 500 mcg PO DAILY 11/02/16 [History] Buspirone HCl [Buspar] 15 mg PO BID 02/28/17 [History] GuaiFENesin ER [Mucinex] 600 mg PO Q12H PRN 02/28/17 [History] Calcium Carbonate [Calcium] 600 mg PO BIDWM 05/27/17 [History] Lovastatin 40 mg PO HS 05/27/17 [History] Sertraline [Zoloft] 50 mg PO DAILY 05/27/17 [History] Tiotropium [place] [Spiriva Respimat] 2 puff IH DAILY 05/27/17 [History] Metoprolol [Lopressor] 25 mg PO BID 06/06/17 [History] Mometasone/Formoterol [Dulera 100 Mcg/5 Mcg Inhaler] 2 puff IH BID 09/02/17 [History] Omeprazole [PriLOSEC] 20 mg PO DAILY 09/02/17 [History] Simethicone [Gas Relief] 180 mg PO Q4H PRN 09/02/17 [History] predniSONE [PredniSONE] 20 mg PO DAILY 09/02/17 [History] Calcitonin,[place],Synthetic [Calcitonin-[place]] 1 spr NS DAILY 12/16/17 [History] GuaiFENesin Liq [Robitussin Liq] 200 mg PO Q6HR PRN 12/16/17 [History] HYDROcodone/Acet 5/325 mg [[place] 5-325 mg] 1 tab PO Q6H PRN 12/16/17 [History] Ipratropium/Albuterol Neb [Duoneb] 3 ml IH QIDR PRN 12/16/17 [History] Tramadol HCl [Ultram] 50 - 100 mg PO QID PRN 12/16/17 [History] HYDROcodone/Acet 5/325 mg [[place] 5-325 mg] 1 tab PO Q4H PRN 01/10/18 [History] Ipratropium/Albuterol Neb [Duoneb] 3 ml IH Q4HR PRN 01/10/18 [History] Alendronate Sodium/Vitamin D3 [Fosamax Plus D 70 mg-2,800 Iu] 1 tab PO QWEEK #1 tab 01/13/18 [Rx]
--- NOTE | 2018-01-15 11:16 | Pain Management Procedure Note ---
Date of procedure: 01/15/18 Procedure: PHYSICIAN: DR. VINSON PREOPERATIVE DIAGNOSIS: Osteoporotic Compression Fractures at L1 and L2 POSTOPERATIVE DIAGNOSIS: Same OPERATIVE PROCEDURE: Kyphoplasty at Levels L1 and L2 COMPLICATIONS: None IMAGES SAVED: AP and Lateral Views of Trochar Tip Position Just Before Entering the Vertebral Body. AP and Lateral Views After Placement of Bone Cement. SAFETY INFORMATION: Prior to entering the operating room, we verified the following information with the patient: 1. The patient denies allergies to contrast and bone cement. 2. The patient denies taking oral anticoagulants. 3. The patient denies recently being given injectable anticoagulants. Last heparin dose was over 24 hours ago. Verified by me last night and today with resident and RN. 4. The patient denies use of herbal medications, in particular garlic and ginkgo. 5. Chronic pneumonia under control, white count normal now. 6. There have been no neurologic or new symptoms since last evaluation occurred. PROCEDURE: This patient underwent successful L4 kyphoplasty on 12/16/2017. At follow-up visit on 12/27/2017, the patient reported a pain free interval after surgery of about 1 week. However, the patient began experiencing a worsening of lower back pain one week after the December 16 L4 procedure. The patient described the pain as in the middle of his back, not involving the legs, sharp, 10/10, preventing him from standing. A radiograph was taken that day that demonstrated new compression deformities at L1 and L2. The plan at that point was conservative. The patient was released from the office back to his living facility where back bracing, oral opioid analgesics, bedrest, lifestyle modification, and physical therapy were performed. This conservative care persisted until 01/14/2018. At that point the patient had been readmitted to the hospital due to worsening pain and an inability to perform basic physical therapy treatments. The patient could only perform range of motion exercises with his upper arms and he could not tolerate any sort of activity with the lower limbs due to severe, stabbing pain in the lower back. The patient also was relegated to his bed being unable to exit the bed due to pain. During the most recent hospital admission, the patient was again treated for suspected pneumonia with cefepime infusion and bronchodilators. The patient was having a difficult time coughing and mobilizing airway secretions. I reevaluated the patient on January 13. We had physical therapy reevaluate him at my request. The physical therapy reevaluation was poor. The patient could not tolerate any out of bed functions. For that reason, a new MRI was performed of the lumbar spine which showed worsening compression deformities especially at L1 superior endplate and the entire L2 vertebral body. Micro-fracturing was also noted in L3 incidentally. The L4 vertebral body was stabilized with cement. Because of the threat of constant worsening pneumonia, loss of physical function while in bed, and debilitating pain that was not responding to typical conservative care for a period of just over 4 weeks, I decided that the patient would be best treated with urgent kyphoplasty to quickly reduce pain and allow out of bed function to prevent what could be a deadly pneumonia. I am diagnosing the patient with osteoporosis secondary to the presence of multiple vertebral fractures occurring after minor movements showed such as standing and walking. He does not have a history of trauma or even a fall from standing. He also has been exposed to corticosteroid as a long-term treatment for chronic obstructive pulmonary disease. The CT scans and lumbar radiographs all demonstrate obvious low bone density, and his history to this point noted above is diagnostic of osteoporosis. I reviewed the risks and benefits of the procedure with the patient. Specific risks discussed are circled on the consent form in blue ink. The patient was agreeable to performing repeat kyphoplasty(s) primarily at L1 and L2 and not L3. The patient was brought into the operating room on a rolling hospital bed. Routine [employer] [place] [employer] monitors were placed after verifying patient identity and surgical procedure. General anesthesia was induced and the trachea was intubated without any obvious complications. I then helped the anesthesiology team move the patient from a supine position in the hospital bed to a prone position on the operating interventional pain table. Face, chest, elbow, external genitalia, hip, knee, and foot pressure points were padded and checked to be free of hard pressure points. Pillows were placed under the patient to accentuate the decrease the thoracic kyphosis and accentuate the lumbar lordosis. Airway was verified to be secure and mechanical ventilation was easily tolerated by the patient. A surgical field was established by scrubbing the skin from the upper thorax to the gluteal cleft, covering the entire area between posterior axillary lines, with chlorohexadine solution and allowing to dry for four minutes. The surgical field was outlined with four sterile towels before applying a full body drape to cover the entire patient. Two C arms which had been drapped in the usual sterile fashion were now brought into the surgical field, and we spent the next five minutes obtaining perfect AP and lateral views of the fractured vertebral body. AP views made the superior and inferior endplates appear linear with the superior border of the pedicle being even with the superior endplate. The spinous process was equidistant between the pedicles. The lateral view showed superimposed pedicles as well as superior and inferior endplates. A right unipedicular, transpedicular approach was planned at [L1] based upon the level and fracture morphology. The right trochar was placed. I identifed the lateral tip of the ipsilateral transverse process and marked just superior to this location on skin. An eleven blade was used to make a small stab incision. A [employer] trochar with a beveled tip was introduced through skin and directed down through subcutaneous tissue and muscle to reach the surface of the posterior elements. Rashard contact was established with the superior lateral pedicle while the tip was monitored with both AP and lateral views. The beveled tip was adjusted slightly to touch the bone of the upper and outer ipsilateral pedicle. AP and lateral views verified the troachar tip as being at position one, the most posterior and lateral aspect of the pedicle. Two light taps with a mallet caused the tip to engage in cortical bone. The trochar was then oriented medially and inferiorly, and more light taps from the mallet moved the tip to the waist of the pedicle as seen on the AP and lateral views. At this point, very small movements and adjustments were made so as the trochar tip never crossed the medial border of the pedicle as the tip was advanced gently from the waist to the posterior aspect of the vertebral body. Just before reaching the posterior wall of the body, I turned the beveled tip outward so as to reduce the chance of entering the central canal. The bone at this level was very soft. Very light taps on the trochar were able to advance it. A bipedicular, transpedicular approach was planned at [L2] based upon the level and fracture morphology. The right trochar was placed. I identifed the lateral tip of the ipsilateral transverse process and marked just superior to this location on skin. An eleven blade was used to make a small stab incision. A [employer] trochar with a beveled tip was introduced through skin and directed down through s ubcutaneous tissue and muscle to reach the surface of the posterior elements. Rashard contact was established with the superior lateral pedicle while the tip was monitored with both AP and lateral views. The beveled tip was adjusted slightly to touch the bone of the upper and outer ipsilateral pedicle. AP and lateral views verified the troachar tip as being at position one, the most posterior and lateral aspect of the pedicle. Two light taps with a mallet caused the tip to engage in cortical bone. The trochar was then oriented medially and inferiorly, and more light taps from the mallet moved the tip to the waist of the pedicle as seen on the AP and lateral views. At this point, very small movements and adjustments were made so as the trochar tip never crossed the medial border of the pedicle as the tip was advanced gently from the waist to the posterior aspect of the vertebral body. Just before reaching the posterior wall of the body, I turned the beveled tip outward so as to reduce the chance of entering the central canal. I then repeated the access steps noted above on the left at L2. Now that vertebral body access had been safely achieved, each level was treated as follows. The inner stylet with the beveled tip was now removed. A bone sample was aspirated using a simple bone biopsy device. The hallow tube was placed through working channel of the trochar and monitored with AP and lateral views. Once in the middle of the vertebral body, negative pressure was applied with a 5 mL syringe and the biopsy device was pulled back and out. A plunger was used to remove the core sample, and it was sent to the lab. A hand drill was now placed via the working channel. I held the drill snuggly as it entered the proximal end of the working channel. The drill was slowly advanced being absolutely careful not to drive the drill through the anterior cortical bone. Lateral views were used to orient the bone access trochar in such a way that the endplates were not approached by the drill. I also used the perioperative imaging to orient the drill into the fracture site. The drill tip was brought to the anterior third of the vertebral body on lateral view; AP view showed the drill tip in the midline. The drill was now backed out intact. The exact same sequence of events was repeated on the contralateral side from skin marking to bone drilling. Once completed, two bone access ports were in place with drilled tracts into the fracture site. Balloon tamps 4 mL were now placed via each working channel so that the two radiopaque alexander were both distal to the distal tip of the working trochar. Fracture reduction was now begun by instilling contrast into both balloons under frequent intermittent AP and lateral fluoroscopic images. The balloons were expanded with contrast volume while the pressure of each balloon was monitored in real time. Fluoroscopic images confirmed lack of cortical bone contact or violation of cortical bone in any view. Once expanded to no more than 400 PSI, both balloons were allowed to rest in the fracture bed over a period of five to ten minutes in order to reduce the fracture as much as possible. The balloons were then deflated and removed intact. The right L1 balloon expanded to 4 ml at 130 psi. The right L2 balloon expanded to 1.6 ml at 380 psi. the left L2 balloon expanded to 1.8 ml at 300 psi. Kyphon H[employer] bone cement was loaded into the Ky[employer] cement delivery system. A sample of the cement was kept on the surgical back table to monitor viscosity. I waited until the bone cement became doughy, dull in color, and did not stick to my glove. The cement delivery systems were then placed into the voids created with the balloon tamps. I then proceeded to deliver bone cement into each void while monitoring for extra cortical spread. No obvious venous, paravertebral, or epidural spread occurred. The patient was stable throughout cement placement. Fluoroscopic images showed anterior filling of the vertebral body first without any posterior extravasation. Each cement delivery system was then removed intact, and the beveled tipped trochar stylet was replaced. I decided not to treat the left side of L1 because the MRI did not show profound edema on the left side of the L1 body. Furthermore, I wanted to keep the volume of cement low due to his poor pulmonary function. The patient did r equire albuterol nebulizer to control high airway pressures prior to cement placement. L3 was also not treated due to the very minor findings on MRI. Unfortunately, the patient is predisposed to further fracture because of longstanding steroid exposure. I then pulled out each intact trochar. The bone cement was given another four minutes, a full twenty minutes after initial mixing, to fully set up. Skin glue and steristrips were placed over the skin incisions. Sterile gauze and tegaderm were placed. The patient was returned to the supine position in a hospital bed. Emergence from general anesthesia was allowed; the trachea was extubated. The patient was moved to the recovery area. Monitoring was carried out until the patient met our discharge criteria and was released home with family support. Was there an surgeon assistant present: No Estimated blood loss (cc): 10 Specimen: 0
--- NOTE | 2018-01-15 12:13 | Anesthesia Evaluation Post Op ---
Date of Encounter: 01/15/18 Time of Encounter: 11:30 - Vital Signs Vital Signs: Last Vital Signs Temp 97.6 F 01/15/18 11:23 Pulse 70 01/15/18 11:23 Resp 14 01/15/18 11:23 BP 144/77 01/15/18 11:23 Pulse Ox 96 01/15/18 11:23 - Lungs Lungs: Clear Ascult./Percussion - Airway Airway: Non-obstructed - Cardiovascular Regular Rate - Mental Status Mental Status: Alert & Oriented, Answers Appropriately - Pain Pain Scale: 6 - Nausea Vomiting Nausea Vomiting: Not Present - Hydration Hydration: NPO - Discharge PostOp Status: Transfer Patient to floor
[2018-01-15] MEDS: predniSONE 20 MG TABLET PO SCH (12:42)
[2018-01-15] MEDS: Primidone 50 MG TABLET PO SCH ×2 (12:43→21:09)
[2018-01-16] MEDS: traMADol 50 MG TABLET PO PRN (00:10)
[2018-01-16] MEDS: *HR* HYDROcodone/Acet 5/325 mg TABLET PO PRN ×2 (04:47→13:54)
[2018-01-16] MEDS: Cefepime HCl 2,000 MG in Water for inj. (sterile) 20 ML 20 ML IVP SCH (04:48)
[2018-01-16 06:41] LABS: Hematocrit 37.7 % (37.5-50.1); Mean Corpuscular HGB Conc 31.8 g/dL (31.6-35.5); Mean Corpuscular Hemoglobin 29.6 pg (28.0-33.3); Mean Corpuscular Volume 92.9 fL (83.0-100.0); Mean Platelet Volume 10.3 fL (9.4-12.4); Platelet Count 182 K/mcL (140-400); Red Blood Count 4.06 M/mcL (4.19-5.50); Red Cell Distribution Width 13.7 % (11.5-14.5)
[2018-01-16 07:02] LABS: BUN/Creatinine Ratio 20 (6-26); Blood Urea Nitrogen 18 mg/dL (8-23); Calcium 8.6 mg/dL (8.6-10.3); Carbon Dioxide 30 mEq/L (23-29); Chloride 101 mEq/L (98-107); Glucose 111 mg/dL (70-105); Osmolality,Calculated 285 (280-300); Potassium 4.1 mEq/L (3.5-5.1); Sodium 136 mEq/L (136-145); eGFR For Non-African Americans > 60 (> 60)
[2018-01-16] MEDS: Budesonide/Formoterol 80/4.5 MDI IH SCH (08:21)
[2018-01-16] MEDS: Tiotropium 18 MCG inhalation IH SCH (08:22)
[2018-01-16] MEDS: Primidone 50 MG TABLET PO SCH (08:50)
[2018-01-16] MEDS: predniSONE 20 MG TABLET PO SCH (08:51)
--- NOTE | 2018-01-16 10:02 | Internal Med Progress Note ---
<Poncho Ramírez - Last Filed: 01/16/18 18:42> Hospitalist Progress Note - Exam Vitals: Temp Pulse Resp BP Pulse Ox 97.7 F 65 14 127/78 98 01/16/18 14:47 01/16/18 14:47 01/16/18 14:47 01/16/18 14:47 01/16/18 14:47 - Assessment and Plan (1) HTN (hypertension) Status: Chronic (2) COPD (chronic obstructive pulmonary disease) Status: Chronic (3) Compression fracture of lumbar spine, non-traumatic Status: Chronic (4) Left ureteral calculus Status: Acute (5) Pneumonia Status: Resolved (6) Osteoporosis Status: Acute - Time Spent with Patient Total time spent is greater than 50% in coordination of care (as documented) at patient's floor/unit and/or counseling patient: Internal Medicine: Result - Labs CBC & Chem 7: 01/16/18 05:58 01/16/18 05:58 Labs: Short CBC 01/16/18 Range/Units 05:58 WBC 8.1 (4.3-11.1) K/mcL Hgb 12.0 L (12.9-16.9) g/dL Hct 37.7 (37.5-50.1) % Plt Count 182 (140-400) K/mcL BMP 01/16/18 05:58 Sodium 136 Potassium 4.1 Chloride 101 Carbon Dioxide 30 H BUN 18 Creatinine 0.89 Glucose 111 H Calcium 8.6 - ABG Interpretation ABG results: PT/INR, D-dimer PT 12.1 Seconds (9.4-12.1) 01/15/18 05:05 Consult Discharge Plan - Plan Instructions: Viral Pneumonia (DC), Kyphoplasty (DC) Additional Instructions: - resume activities as tolerated - continue with bronchdilators for COPD - use incentive spirometry to rectify the V/Q mismatch secondary to atelectesis. - follow up with Dr. Patterson as an outpatient. Wound Care:: NO ANTICOAGULANTS OF ANY KIND (ASA, NSAID INCLUDED) FOR 24 HOURS AFTER SURGERY 1. allow bandages to stay on skin, do not remove. My office will take down bandages in 7-10 days. 2. Our spine coordinator, Nina Vang, will make the patient a follow up appointment with me in office in 7-10 days. 3. Continue oral pain medication PRN through hospital discharge if needed. 4. Ok to wear back brace for comfort. 5. Encourage sit on side of bed as tolerated. 6. I want PT to evaluate 24 hours after surgery to see if he is more functional. 7. If doing well, ok to discharge back to living facility. Referrals: Dung Patterson, [Partnered Physician] - 01/25/18 11:20 am Prescriptions: Alendronate Sodium/Vitamin D3 [Fosamax Plus D 70 mg-2,800 Iu] 1 tab PO QWEEK 30 Days #4 tab HYDROcodone/Acet 5/325 mg [[place] 5-325 mg] 1 tab PO Q6H PRN 5 Days #20 tab PRN Reason: post op pain predniSONE [PredniSONE] See Taper PO DAILY 20 Days #50 tablet - Attending Attestation I examined this patient and my medical decision-making was reviewed with the Resident Physician on 01/15/18. I agree with the documented findings, disposition and treatment plan as described except to the extent set forth below. Mr Amor is currently admitted for back pain related to compression fractures. He remains moderate risk. Mr Amor had kyphoplasty yesterday. He is still having pain but is going to rehab today. He is afebrile and ready for discharge. Exam Alert Mod distress when moves Mucus membranes dry Heart reg No wheeze abd soft Brace in place I/P 1. Compression fracture s/p kyphoplasty 2. Osteoporosis - taper off prednisone. Fosamax To SNF today. <Micheal Corado - Last Filed: 01/16/18 20:36> Hospitalist Progress Note - Encounter Date of Encounter: 01/16/18 Time of Encounter: 09:00 - Subjective Interval History: 01/16 Patient was seen at the bedside. He is status post day 2 of kyphoplasty. Enodrses mild distress especially with physical therapy to try to ambulate him from bed to chair. As per recommendation of Dr. Patterson patient needs to be discharged to a rehabilitation facility and follow-up with him as an outpatient to determine if he is making any functional progress. 01/12 Patient seen today at the bedside. He endorses no acute distress. Patient is currently on oxycodone and Tramadol for pain control for his L1-L2 compression fracture. Dr. Patterson wants to initiate Fosamax therapy for him at 70 mg weekly dosing. Spoke to the pharmacist about dosing him as an inpatient and she called outpatient pharmacy but the Fosamax only comes in box of 4. Patient will be discharged tomorrow on Fosamax . 01/11 Mr. Amor is a 61-year-old pleasant male with a past medical history of COPD, hypertension, history of CVA who was admitted to the floor because of back pain was found to have L1-L2 compression fracture on CT. Patient was admitted not too long ago for L4 vertebral body fracture status post kyphoplasty at [facility]. Endorses that he has a chronic history of COPD this endorses no worsening shor tness of breath or productive sputum. Denies any sick contacts or recent travels. She endorses that he has had multiple episodes of pneumonia and was admitted to the hospital not too long ago. Endorses that he was on wheelchair trying to bend forward At [place] when he heard something snap. Patient denies any radiating pain to his lower extremities. Patient was seen at the bedside. He seems to be in moderate pain because of his compression fracture. - Exam Vitals: Temp Pulse Resp BP Pulse Ox 98.1 F 58 12 125/78 98 01/16/18 07:01 01/16/18 07:01 01/16/18 08:26 01/16/18 07:01 01/16/18 08:26 Exam: General: Alert and oriented 3, lying in bed in no acute distress Skin: Normal color, no rash, no lesions. HEENT: EOMI, pupils equal, round and reactive. Cardiovascular: RRR, Normal S1 & S2, no rubs, murmurs or gallops. No JVD. Pulse regular. Lungs: Normal breath sounds, no wheezes or crackles. Abdomen: Soft, non-tender, no rigidity. Extremities: No deformity, no edema or tenderness, no numbness; no joint swelling or clubbing. Neurological: Normal cognition and motor skills. Pulses: Carotid and radial pulses normal +2. Musculoskeletal: s/o L1-L2 kyphoplasty, Tenderness to palpation along the lumbar spine at the level of L-spine - Assessment and Plan (1) Compression fracture of lumbar spine, non-traumatic Status: Chronic Assessment and Plan: -Patient is day 1 s/p kyphoplasty at L1-L3 on 01/15/[address] Patterson -01/14/18 MRI lumbar spine revealed acute compression abnormalities of L1-L3 - Recommended to continue participating physical therapy/occupation therapy - Patient will return to SNF either today or tomorrow if he is stable. - Dr. Palomares recommended to starting Fosamax 70 mg weekly upon discharge (2) HTN (hypertension) Status: Chronic Assessment and Plan: Continue Metoprolol Continue monitoring (3) COPD (chronic obstructive pulmonary disease) Status: Chronic Assessment and Plan: Patient has a history of COPD. During this admission he does not appear to be an exacerbation of COPD. No worsening cough productive sputum or shortness of breath. Currently on DuoNeb's, symbiort 2 puffs BID, spiriva, and prednisone 20 mg. (4) Left ureteral calculus Status: Acute Assessment and Plan: CT showed 3 mm proximal left ureteral stone noted on CT of spine. Patient currently asymptomatic. No indication for any invasive procedure because of the size of the stone. Continue to monitor. (5) Pneumonia Status: Resolved Assessment and Plan: CT thoracic showed Right lower lobe consolidation and small right pleural effusion Patient completed 7 day course of Cefepime as of today Continue incentive spirometry - Time Spent with Patient Total time spent is greater than 50% in coordination of care (as documented) at patient's floor/unit and/or counseling patient: Internal Medicine: Result - Labs CBC & Chem 7: 01/16/18 05:58 01/16/18 05:58 Labs: Short CBC 01/16/18 Range/Units 05:58 WBC 8.1 (4.3-11.1) K/mcL Hgb 12.0 L (12.9-16.9) g/dL Hct 37.7 (37.5-50.1) % Plt Count 182 (140-400) K/mcL BMP 01/16/18 05:58 Sodium 136 Potassium 4.1 Chloride 101 Carbon Dioxide 30 H BUN 18 Creatinine 0.89 Glucose 111 H Calcium 8.6 - ABG Interpretation ABG results: PT/INR, D-dimer PT 12.1 Seconds (9.4-12.1) 01/15/18 05:05 - Impressions Impressions Fluoroscopy 01/15/18 08:00 IMPRESSION: Upper lumbar spine vertebroplasty. Refer to report. D/ / 01/15/2018 12:10:38 Dylon Meier MD / shane Interpreting Provider: Dylon Meier MD Lumbar Spine X-Ray 01/15/18 08:00 IMPRESSION: Intraprocedural fluoroscopic spot images as above. See separate procedure report for more information. D/ / 01/15/2018 11:31:02 Dylon Meier MD / Shantell Hernandez Interpreting Provider: Dylon eMier MD Xray Preliminary Report 01/15/18 08:00 IMPRESSION: Intraprocedural fluoroscopic spot images as above. See separate procedure report for more information. D/ / 01/15/2018 11:31:02 Dylon Meier MD / Shantell Hernandez Interpreting Provider: Dylon Meier MD <Poncho Ramírez - Last Filed: 01/16/18 18:42> (1) HTN (hypertension) Qualifiers: Hypertension type: essential hypertension Qualified Code(s): I10 - Essential (primary) hypertension (2) COPD (chronic obstructive pulmonary disease) Qualifiers: COPD type: unspecified COPD Qualified Code(s): J44.9 - Chronic obstructive pulmonary disease, unspecified (3) Compression fracture of lumbar spine, non-traumatic Qualifiers: Encounter type: subsequent encounter Lumbar vertebra fracture level: L2 Fracture healing: with routine healing Qualified Code(s): M48.56XD - Collapsed vertebra, not elsewhere classified, lumbar region, subsequent encounter for fracture with routine healing (5) Pneumonia Qualifiers: Pneumonia type: due to other aerobic Gram-negative bacteria Laterality: right Lung location: lower lobe of lung Qualified Code(s): J15.6 - Pneumonia due to other Gram-negative bacteria (6) Osteoporosis Qualifiers: Osteoporosis type: other Presence of current pathological fracture: with current pathological fracture Encounter type: subsequent encounter Fracture healing: with routine healing Qualified Code(s): M80.80XD - Other osteoporosis with current pathological fracture, unspecified site, subsequent encounter for fracture with routine healing <Micheal Corado - Last Filed: 01/16/18 20:36> (1) Compression fracture of lumbar spine, non-traumatic Qualifiers: Encounter type: subsequent encounter Lumbar vertebra fracture level: L2 Fracture healing: with routine healing Qualified Code(s): M48.56XD - Collapsed vertebra, not elsewhere classified, lumbar region, subsequent encounter for fracture with routine healing (2) HTN (hypertension) Qualifiers: Hypertension type: essential hypertension Qualified Code(s): I10 - Essential (primary) hypertension (3) COPD (chronic obstructive pulmonary disease) Qualifiers: COPD type: unspecified COPD Qualified Code(s): J44.9 - Chronic obstructive pulmonary disease, unspecified (5) Pneumonia Qualifiers: Pneumonia type: due to other aerobic Gram-negative bacteria Laterality: right Lung location: lower lobe of lung Qualified Code(s): J15.6 - Pneumonia due to other Gram-negative bacteria
--- NOTE | 2018-01-16 13:48 | Pain Management Consultation ---
Date of Encounter: 01/16/18 Time of Encounter: 13:45 Assessment and Plan (1) Compression fracture of lumbar spine, non-traumatic Current Visit: Yes Status: Chronic I was able to repair the L1 and L2 fractures yesterday with kyphoplasty. I chose not to proceed with the L3 repair due to the subtle, microfracture in noted on the MRI. The amount and distribution of bone cement in a patient with poor pulmonary status was also a factor in this decision. I recommend that the patient be discharged to rehabilitation facility and follow up with me soon to determine if he is making functional progress. Appreciate colleagues initiating Fosamax. It is also a question to his medical team as to what should be done with his chronic prednisone therapy. The patient has been maintained on prednisone as a treatment for COPD for a long while. His bone density is extremely poor. During surgery yesterday, the cancellous bone in the L1 vertebral body was e xtremely delicate. I think the likelihood of repeat fractures is extremely high in his case. If it is possible to reduce or withdraw prednisone therapy, it would help the patient recover from his current fractures and prevent new ones. Qualifiers: Encounter type: subsequent encounter Lumbar vertebra fracture level: L2 Fracture healing: with routine healing Qualified Code(s): M48.56XD - Collapsed vertebra, not elsewhere classified, lumbar region, subsequent encounter for fracture with routine healing History of Present Illness Chief complaint: back pain HPI: Mr. Amor is a 67 year old male who has been recently diagnosed with osteoporosis and multiple fragility fractures in his lumbar spine. I saw the patient today in his room while he is sitting up out of bed. The patient states that he has little pain when sitting still, but he does get sharp jabs of pain that he describes as 10/10 in the right more so than left of his back. The pain is centered in the lower back mostly in the middle of his body but does favor the right side. He denies any pain traveling into his legs. He does feel weak overall from prolonged bedrest. The patient feels that he can restart physical therapy. Prior to surgery, he was unable to sit up out of bed without having severe pain. Past Med Surg Social Fam HX - Past Medical History Medical history: atrial fibrillation, COPD, CVA, DVT, hyperlipidemia, hypertension, kidney stones Additional medical history: L4 fracture. benign essential tremors. hepatitis C (patient denies - states one test positive and later test negative) Psychiatric history: anxiety, depression - Past Surgical History Surgical History: tonsilectomy, other Additional surgical history: Herniated testical repair 1961, teeth removed - Social History Smoking Status: Former smoker Smokeless Tobacco Status: No Alcohol use: none Drug use: none - Family History Brother Family Member Ethnicity: Non- Living Status: Mother Adopted: No Family Member Ethnicity: Non- Living Status: Hx Family Cardiac Disorders: No Hx Family Respiratory Disorders: No Hx Family Cancer: Yes (lung) Hx Family GI Disorders: No Hx Family Endocrine Disorder: No Hx Family Neuromuscular Disorders: No Hx Family Neurologic Disorders: No Hx Family HEENT Disorders: No Hx Family Autoimmune Disorders: No Father Adopted: No Family Member Ethnicity: Non- Living Status: Hx Family Cardiac Disorders: No Hx Family Respiratory Disorders: Yes (emphysema) Hx Family Cancer: No Hx Family GI Disorders: No Hx Family Endocrine Disorder: No Hx Family Neuromuscular Disorders: No Hx Family Neurologic Disorders: No Hx Family HEENT Disorders: No Hx Family Autoimmune Disorders: No Medications and Allergies Aspirin 81 mg PO DAILY #30 tab.chew 05/20/16 [Rx] Acetaminophen [Tylenol] 500 mg PO Q6H PRN 08/26/16 [History] Primidone [Mysoline] 50 mg PO BID 08/26/16 [History] Theophylline Anhydrous [Curt-24] 100 mg PO DAILY 10/04/16 [History] Docusate [Colace] 100 mg PO BID PRN 11/02/16 [History] Roflumilast [Daliresp] 500 mcg PO DAILY 11/02/16 [History] Buspirone HCl [Buspar] 15 mg PO BID 02/28/17 [History] GuaiFENesin ER [Mucinex] 600 mg PO Q12H PRN 02/28/17 [History] Calcium Carbonate [Calcium] 600 mg PO BIDWM 05/27/17 [History] Lovastatin 40 mg PO HS 05/27/17 [History] Sertraline [Zoloft] 50 mg PO DAILY 05/27/17 [History] Tiotropium [place] [Spiriva Respimat] 2 puff IH DAILY 05/27/17 [History] Metoprolol [Lopressor] 25 mg PO BID 06/06/17 [History] Mometasone/Formoterol [Dulera 100 Mcg/5 Mcg Inhaler] 2 puff IH BID 09/02/17 [History] Omeprazole [PriLOSEC] 20 mg PO DAILY 09/02/17 [History] Simethicone [Gas Relief] 180 mg PO Q4H PRN 09/02/17 [History] predniSONE [PredniSONE] 20 mg PO DAILY 09/02/17 [History] Calcitonin,[place],Synthetic [Calcitonin-W[place]] 1 spr NS DAILY 12/16/17 [History] GuaiFENesin Liq [Robitussin Liq] 200 mg PO Q6HR PRN 12/16/17 [History] HYDROcodone/Acet 5/325 mg [[place] 5-325 mg] 1 tab PO Q6H PRN 12/16/17 [History] Ipratropium/Albuterol Neb [Duoneb] 3 ml IH QIDR PRN 12/16/17 [History] Tramadol HCl [Ultram] 50 - 100 mg PO QID PRN 12/16/17 [History] HYDROcodone/Acet 5/325 mg [[place] 5-325 mg] 1 tab PO Q4H PRN 01/10/18 [History] Ipratropium/Albuterol Neb [Duoneb] 3 ml IH Q4HR PRN 01/10/18 [History] Alendronate Sodium/Vitamin D3 [Fosamax Plus D 70 mg-2,800 Iu] 1 tab PO QWEEK #1 tab 01/13/18 [Rx] Allergy/AdvReac Type Severity Reaction Status Date / Time azithromycin [From Zithromax] AdvReac See Verified 12/16/17 10:00 Comments hydrochlorothiazide AdvReac Difficulty Verified 12/16/17 10:00 Breathing ibuprofen [From Motrin] AdvReac Gastrointestinal Verified 12/16/17 10:00 Upset levofloxacin [From Levaquin] AdvReac See Verified 12/16/17 10:00 Comments Review of Systems - Constitutional Constitutional ROS IM: no photophobia, no phonophobia, no daytime sleepiness, no fever(s), no stops breathing during sleep - EENT Nose, mouth and throat: no headache(s), no neck pain, no neck trauma - Cardiovascular Cardiovascular ROS: no chest pain, no leg edema, no lightheadedness - Respiratory Respiratory: no pain on inspiration, no pain with cough - Gastrointestinal Gastrointestinal: no abdominal pain, no constipation, no diarrhea, no heartburn - Genitourinary Genitourinary ROS: no difficulty urinating, no flank pain, no urinary hesitancy - Musculoskeletal Musculoskeletal ROS: no muscle weakness, no numbness, no radiating pain into limb, no tingling - Integumentary Integumentary: no erythema, no lesions, no swelling - Neurological Neurological ROS: no abnormal gait, no behavioral changes, no focal weakness, no radicular pain - Psychiatric Psychiatric general: no anxiety, no confusion, no depression - Hematologic/Lymphatic Hematologic/Lymphatic pediatric: no easy bleeding, no easy bruising Physical Exam Initial Vital Signs Temp Pulse Resp BP Pulse Ox 98.2 F 70 18 144/88 98 01/10/18 15:42 01/10/18 15:42 01/10/18 15:42 01/10/18 15:42 01/10/18 15:42 - Additional Findings Constitutional: well appearing, able to sit comfortably without pain. Skin: Surgical incisions dressed, dressing intact. Cranial Nerves: CN II through X12 grossly intact HEENT: NCAT Cardiac: No lower limb edema. Respiratory: quiet, normal respiratory pattern ABD: no distention MSK: Myotome testing indicates 4/5 strength in all lower limb dermatomes with knee, ankle, and great toe flexion and extension left and right Neuro: no focal sensory deficits in any lower limb dermatome. I have reviewed and agree with information documented in the scribed documentation, ROS, patient medications, allergies, medical history, surgical history, social history, and family history. Results - Labs 01/16/18 05:58 01/16/18 05:58 Abnormal lab results RBC 4.06 M/mcL (4.19-5.50) L 01/16/18 05:58 Hgb 12.0 g/dL (12.9-16.9) L 01/16/18 05:58 Carbon Dioxide 30 mEq/L (23-29) H 01/16/18 05:58 Glucose 111 mg/dL (70-105) H 01/16/18 05:58 B-Natriuretic Peptide 242 pg/mL (Less than 100) H 01/10/18 19:36 Serum Total Protein 5.8 g/dL (6.4-8.9) L 01/11/18 03:28 Albumin 3.2 g/dL (3.5-5.7) L 01/11/18 03:28 Ur Specific [place] 1.029 (1.010-1.025) H 01/10/18 20:13 Urine Blood Large (Negative) H 01/10/18 20:13 Urine Microscopic RBC TNTC per hpf (0-3) H 01/10/18 20:13 Ur Squamous Epith Cells Many per lpf (None-Few) H 01/10/18 20:13 Diabetes panel 01/16/18 Range/Units 05:58 Sodium 136 (136-145) mEq/L Potassium 4.1 (3.5-5.1) mEq/L Chloride 101 (98-107) mEq/L Carbon Dioxide 30 H (23-29) mEq/L BUN 18 (8-23) mg/dL Creatinine 0.89 (0.70-1.30) mg/dL Glucose 111 H (70-105) mg/dL Calcium 8.6 (8.6-10.3) mg/dL Calcium panel 01/16/18 Range/Units 05:58 Calcium 8.6 (8.6-10.3) mg/dL Pituitary panel 01/16/18 Range/Units 05:58 Sodium 136 (136-145) mEq/L Potassium 4.1 (3.5-5.1) mEq/L Chloride 101 (98-107) mEq/L Carbon Dioxide 30 H (23-29) mEq/L BUN 18 (8-23) mg/dL Creatinine 0.89 (0.70-1.30) mg/dL Glucose 111 H (70-105) mg/dL Calcium 8.6 (8.6-10.3) mg/dL Adrenal panel 01/16/18 Range/Units 05:58 Sodium 136 (136-145) mEq/L Potassium 4.1 (3.5-5.1) mEq/L Chloride 101 (98-107) mEq/L Carbon Dioxide 30 H (23-29) mEq/L BUN 18 (8-23) mg/dL Creatinine 0.89 (0.70-1.30) mg/dL Glucose 111 H (70-105) mg/dL Calcium 8.6 (8.6-10.3) mg/dL All other labs normal. Consult Discharge Plan - Plan Additional Instructions: - resume activities as tolerated - continue with bronchdilators for COPD - use incentive spirometry to rectify the V/Q mismatch secondary to atelectesis. - follow up with Dr. Patterson as an outpatient. Wound Care:: NO ANTICOAGULANTS OF ANY KIND (ASA, NSAID INCLUDED) FOR 24 HOURS AFTER SURGERY 1. allow bandages to stay on skin, do not remove. My office will take down bandages in 7-10 days. 2. Our spine coordinator, Nina Vang, will make the patient a follow up appointment with me in office in 7-10 days. 3. Continue oral pain medication PRN through hospital discharge if needed. 4. Ok to wear back brace for comfort. 5. Encourage sit on side of bed as tolerated. 6. I want PT to evaluate 24 hours after surgery to see if he is more functional. 7. If doing well, ok to discharge back to living facility. Referrals: Dung Patterson, [Partnered Physician] - 01/25/18 11:20 am
[2018-01-16 14:49] VITALS: BP 127/78
--- NOTE | 2018-01-16 17:57 | Physician Discharge Referral ---
ExtendedCare Referral Info Transfer To: [facility] - Diagnosis (1) Compression fracture of lumbar spine, non-traumatic Priority: Primary Status: Chronic (2) HTN (hypertension) Priority: Secondary Status: Chronic (3) COPD (chronic obstructive pulmonary disease) Priority: Secondary Status: Chronic (4) Left ureteral calculus Priority: Secondary Status: Acute (5) Pneumonia Priority: Secondary Status: Resolved - Transfer Medications Prescriptions: Alendronate Sodium/Vitamin D3 [Fosamax Plus D 70 mg-2,800 Iu] 1 tab PO QWEEK 30 Days #4 tab HYDROcodone/Acet 5/325 mg [[place] 5-325 mg] 1 tab PO Q6H PRN 5 Days #20 tab PRN Reason: post op pain predniSONE [PredniSONE] See Taper PO DAILY 20 Days #50 tablet Home Medications: Aspirin 81 mg PO DAILY #30 tab.chew 05/20/16 [Rx] Acetaminophen [Tylenol] 500 mg PO Q6H PRN 08/26/16 [History] Primidone [Mysoline] 50 mg PO BID 08/26/16 [History] Theophylline Anhydrous [Curt-24] 100 mg PO DAILY 10/04/16 [History] Docusate [Colace] 100 mg PO BID PRN 11/02/16 [History] Roflumilast [Daliresp] 500 mcg PO DAILY 11/02/16 [History] Buspirone HCl [Buspar] 15 mg PO BID 02/28/17 [History] GuaiFENesin ER [Mucinex] 600 mg PO Q12H PRN 02/28/17 [History] Calcium Carbonate [Calcium] 600 mg PO BIDWM 05/27/17 [History] Lovastatin 40 mg PO HS 05/27/17 [History] Sertraline [Zoloft] 50 mg PO DAILY 05/27/17 [History] Tiotropium [place] [Spiriva Respimat] 2 puff IH DAILY 05/27/17 [History] Metoprolol [Lopressor] 25 mg PO BID 06/06/17 [History] Mometasone/Formoterol [Dulera 100 Mcg/5 Mcg Inhaler] 2 puff IH BID 09/02/17 [History] Omeprazole [PriLOSEC] 20 mg PO DAILY 09/02/17 [History] Simethicone [Gas Relief] 180 mg PO Q4H PRN 09/02/17 [History] Calcitonin,[place],Synthetic [Calcitonin-[place]] 1 spr NS DAILY 12/16/17 [History] GuaiFENesin Liq [Robitussin Liq] 200 mg PO Q6HR PRN 12/16/17 [History] Ipratropium/Albuterol Neb [Duoneb] 3 ml IH QIDR PRN 12/16/17 [History] Tramadol HCl [Ultram] 50 - 100 mg PO QID PRN 12/16/17 [History] HYDROcodone/Acet 5/325 mg [[place] 5-325 mg] 1 tab PO Q4H PRN 01/10/18 [History] Ipratropium/Albuterol Neb [Duoneb] 3 ml IH Q4HR PRN 01/10/18 [History] Alendronate Sodium/Vitamin D3 [Fosamax Plus D 70 mg-2,800 Iu] 1 tab PO QWEEK #1 tab 01/13/18 [Rx] Alendronate Sodium/Vitamin D3 [Fosamax Plus D 70 mg-2,800 Iu] 1 tab PO QWEEK 30 Days #4 tab 01/16/18 [Rx] HYDROcodone/Acet 5/325 mg [[place] 5-325 mg] 1 tab PO Q6H PRN 5 Days #20 tab 01/16/18 [Rx] predniSONE [PredniSONE] See Taper PO DAILY 20 Days #50 tablet 01/16/18 [Rx] Allergies/Adverse Reactions: Allergy/AdvReac Type Severity Reaction Status Date / Time azithromycin [From Zithromax] AdvReac See Verified 12/16/17 10:00 Comments hydrochlorothiazide AdvReac Difficulty Verified 12/16/17 10:00 Breathing ibuprofen [From Motrin] AdvReac Gastrointestinal Verified 12/16/17 10:00 Upset levofloxacin [From Levaquin] AdvReac See Verified 12/16/17 10:00 Comments - Respiratory Orders Smoking Cessation: Smoking cessation has been advised. For more information, call the [place] Tobacco Quit Line at 5-394-KDLJNOW. CERTIFICATION: I certify that the transfer of the above named patient to an Extended Care Facility is necessary for the continuing treatment of the diagnosis listed. The above information is true and accurate reflection of patient's current condition. Confidential - Redisclosure prohibited without a patient's written consent.
== END 2018-01-16 18:45 | DRG 515 ==
LOC: 3ANU 15:38 → EMEROOARM 15:38 → SUATTDRO 22:02 → 3ANU 22:40
PROVIDERS: ADMIT Internal Medicine; ATTEND Internal Medicine

== ENCOUNTER 2018-07-08 09:40 | Inpatient (IN) ==
--- NOTE | 2018-07-08 09:47 | Emergency Department Note ---
Disposition Clinical Impression: HCAP (healthcare-associated pneumonia) Disposition: Admitted As Inpatient Condition: Good General Adult HPI - General Stated complaint: LIZETH Time Seen by Provider: 07/08/18 09:43 - Related Data Home Medications Medication Instructions Recorded Confirmed RX: Acetaminophen [Tylenol] 500 mg PO Q6H PRN 08/26/16 06/27/18 RX: Primidone [Mysoline] 50 mg PO BID 08/26/16 06/27/18 RX: Theophylline Anhydrous 100 mg PO DAILY 10/04/16 06/27/18 [Curt-24] RX: Roflumilast [Daliresp] 500 mcg PO DAILY 11/02/16 06/27/18 RX: Buspirone HCl [Buspar] 15 mg PO BID 02/28/17 06/27/18 RX: GuaiFENesin ER [Mucinex] 600 mg PO Q12H PRN 02/28/17 06/27/18 RX: Calcium Carbonate [Calcium] 600 mg PO BIDWM 05/27/17 06/27/18 RX: Lovastatin 40 mg PO HS 05/27/17 06/27/18 RX: Sertraline [Zoloft] 50 mg PO DAILY 05/27/17 06/27/18 RX: Tiotropium [place] [Spiriva 2 puff IH DAILY 05/27/17 06/27/18 Respimat] RX: Metoprolol [Lopressor] 25 mg PO BID 06/06/17 06/27/18 RX: Mometasone/Formoterol [Dulera 2 puff IH BID 09/02/17 04/03/18 100 Mcg/5 Mcg Inhaler] RX: Omeprazole [PriLOSEC] 20 mg PO DAILY 09/02/17 06/27/18 RX: Simethicone [Gas Relief] 180 mg PO Q4H PRN 09/02/17 04/03/18 RX: GuaiFENesin Liq [Robitussin 200 mg PO Q6HR PRN 12/16/17 04/03/18 Liq] RX: Tramadol HCl [Ultram] 50 - 100 mg PO QID PRN 12/16/17 04/03/18 RX: HYDROcodone/Acet 5/325 mg 1 tab PO Q6H PRN 01/10/18 04/03/18 [[place] 5-325 mg] RX: Ipratropium/Albuterol Neb 3 ml IH Q4HR PRN 01/10/18 04/03/18 [Duoneb] RX: Albuterol Sulfate [Proair Hfa] 2 puff PO Q4H PRN 04/03/18 06/27/18 RX: Diphenoxylate/Atropine 2 each PO QID PRN 04/03/18 06/27/18 [Lomotil 2.5 mg/0.025 mg] RX: Potassium Chloride [K-Tab ER] 20 meq PO BID 04/03/18 06/27/18 Previous Rx's Medication Instructions Recorded RX: Aspirin 81 mg PO DAILY #30 tab.chew 05/20/16 RX: Alendronate Sodium/Vitamin D3 1 tab PO QWEEK #1 tab 01/13/18 [Fosamax Plus D 70 mg-2,800 Iu] RX: Doxycycline Hyclate 100 mg PO BID #14 capsule 06/27/18 Allergies Allergy/AdvReac Type Severity Reaction Status Date / Time azithromycin [From Zithromax] AdvReac See Verified 12/16/17 10:00 Comments hydrochlorothiazide AdvReac Difficulty Verified 12/16/17 10:00 Breathing ibuprofen [From Motrin] AdvReac Gastrointestinal Verified 12/16/17 10:00 Upset levofloxacin [From Levaquin] AdvReac See Verified 12/16/17 10:00 Comments Past Medical History - Past Medical History Medical history: Reports: atrial fibrillation, COPD, CVA, DVT, hyperlipidemia, hypertension, kidney stones Surgical history: Reports: tonsilectomy, other Psychiatric history: Reports: anxiety, depression - Social History Smoking Status: Former smoker Smokeless Tobacco Status: No Alcohol use: Reports: none Drug use: Reports: none Course Vital Signs Temperature 98.3 F 07/08/18 09:47 Pulse Rate 80 07/08/18 09:47 Respiratory Rate 18 07/08/18 09:47 Blood Pressure 127/97 07/08/18 09:47 O2 Sat by Pulse Oximetry 98 07/08/18 09:47 Temperature 97.9 F 07/08/18 14:14 Pulse Rate 67 07/08/18 14:14 Respiratory Rate 15 07/08/18 14:14 Blood Pressure 127/81 07/08/18 14:14 O2 Sat by Pulse Oximetry 96 07/08/18 14:14 Oxygen Delivery Oxygen Delivery Nasal Cannula Medical Decision Making - Lab Data Result diagrams: 07/08/18 09:53 07/08/18 09:53 Lab Results 07/08/18 07/08/18 07/08/18 Range/Units 09:53 09:53 10:04 WBC 11.2 H (4.3-11.1) K/mcL RBC 4.52 (4.19-5.50) M/mcL Hgb 13.2 (12.9-16.9) g/dL Hct 40.9 (37.5-50.1) % MCV 90.5 (83.0-100.0) fL MCH 29.2 (28.0-33.3) pg MCHC 32.3 (31.6-35.5) g/dL RDW 13.2 (11.5-14.5) % Plt Count 393 (140-400) K/mcL MPV 10.1 (9.4-12.4) fL Immature Gran % 0.5 (0-4) % Seg Neutrophils % 83.0 % Lymphocytes % 7.4 % Monocytes % 8.0 % Eosinophils % 0.8 % Basophils % 0.3 % Neutrophils # 9.3 H (1.6-8.9) K/mcL Lymphocytes # 0.8 (0.6-4.6) K/mcL Monocytes # 0.9 (0.0-1.3) K/mcL Eosinophils # 0.1 (0.0-0.6) K/mcL Basophils # 0.0 (0.0-0.2) K/mcL PT (9.4-12.1) Seconds INR Sodium 134 L (136-145) mEq/L Potassium 4.4 (3.5-5.1) mEq/L Chloride 103 (98-107) mEq/L Carbon Dioxide 25 (23-29) mEq/L BUN 17 (8-23) mg/dL Creatinine 0.80 (0.70-1.30) mg/dL Est GFR ( Amer) > 60 (> 60) Est GFR (Non-Af Amer) > 60 (> 60) BUN/Creatinine Ratio 21 (6-26) Glucose 121 H (70-105) mg/dL Calculated Osmolality 281 (280-300) Lactic Acid 1.3 (0.5-2.2) mmol/L Calcium 8.2 L (8.6-10.3) mg/dL Total Bilirubin 0.6 (0.3-1.0) mg/dL Direct Bilirubin 0.2 (0.0-0.2) mg/dL Indirect Bilirubin 0.4 (0.0-1.2) mg/dL AST 17 (13-39) Units/L ALT 12 (7-52) Units/L Alkaline Phosphatase 89 (34-104) Units/L Serum Total Protein 6.6 (6.4-8.9) g/dL Albumin 2.8 L (3.5-5.7) g/dL Globulin 3.8 H (2.4-3.5) g/dL Albumin/Globulin Ratio 0.7 L (1.1-2.2) 07/08/18 Range/Units 10:56 WBC (4.3-11.1) K/mcL RBC (4.19-5.50) M/mcL Hgb (12.9-16.9) g/dL Hct (37.5-50.1) % MCV (83.0-100.0) fL MCH (28.0-33.3) pg MCHC (31.6-35.5) g/dL RDW (11.5-14.5) % Plt Count (140-400) K/mcL MPV (9.4-12.4) fL Immature Gran % (0-4) % Seg Neutrophils % % Lymphocytes % % Monocytes % % Eosinophils % % Basophils % % Neutrophils # (1.6-8.9) K/mcL Lymphocytes # (0.6-4.6) K/mcL Monocytes # (0.0-1.3) K/mcL Eosinophils # (0.0-0.6) K/mcL Basophils # (0.0-0.2) K/mcL PT 15.7 H (9.4-12.1) Seconds INR 1.4 Sodium (136-145) mEq/L Potassium (3.5-5.1) mEq/L Chloride (98-107) mEq/L Carbon Dioxide (23-29) mEq/L BUN (8-23) mg/dL Creatinine (0.70-1.30) mg/dL Est GFR ( Amer) (> 60) Est GFR (Non-Af Amer) (> 60) BUN/Creatinine Ratio (6-26) Glucose (70-105) mg/dL Calculated Osmolality (280-300) Lactic Acid (0.5-2.2) mmol/L Calcium (8.6-10.3) mg/dL Total Bilirubin (0.3-1.0) mg/dL Direct Bilirubin (0.0-0.2) mg/dL Indirect Bilirubin (0.0-1.2) mg/dL AST (13-39) Units/L ALT (7-52) Units/L Alkaline Phosphatase (34-104) Units/L Serum Total Protein (6.4-8.9) g/dL Albumin (3.5-5.7) g/dL Globulin (2.4-3.5) g/dL Albumin/Globulin Ratio (1.1-2.2) Attestation Statement - Attestation Attestation: I examined this patient and my medical decision-making was reviewed with the Resident Physician. I agree with the documented findings, disposition and treatment plan as described except to the extent set forth below. [id number] time provided Patient presents by EMS after having a prehospital chest x-ray indicating pneumonia. He completed a course of doxycycline. The patient appears in no acute respiratory distress upon arrival. I evaluated this patient in conjunction with the resident physician Dr. Laughlin. I attest to supervising his interpretation of the ECG
[2018-07-08] MEDS ORDERED: Piperacillin/Tazobactam 3.375 GM in Water for inj. (sterile) 20 ML 20 ML IVP ONE (09:53)
--- NOTE | 2018-07-08 10:02 | Emergency Department Note ---
Disposition Clinical Impression: HCAP (healthcare-associated pneumonia) Disposition: Admitted As Inpatient Condition: Good Referrals: Flex De La Garza MD [Primary Care Provider] - Forms: ED Satisfaction Letter Time of Disposition: 10:52 SOB HPI - General Chief Complaint: ED Shortness of Breath/Dyspnea Stated Complaint: LIZETH Time Seen by Provider: 07/08/18 09:43 Source: patient, EMS Mode of arrival: EMS Limitations: no limitations Nursing Notes Reviewed: Yes Vital Signs Reviewed: Yes - History of Present Illness 67-year-old male history of COPD on 2 L home oxygen supplementation presents to the emergency department via EMS for difficulty in breathing. Patient is a resident at [facility]. He was recently evaluated 11 days ago for cough and was diagnosed with pneumonia. He was discharged home with doxycycline. He continues to have some dyspnea and has required increase of his oxygen to 3 L for the past 2 days. Chest x-ray was performed yesterday at the nursing facility in the report today shows persistent right lower lobe pneumonia. Patient denies any fever. Reports lower right chest pain. He continues to have her productive cough. Denies any hemoptysis. He has chronic abdominal pain which she states this is same as prior to evaluation. He has known kidney stones and gallstones. Denies any other complaints. Pt Subjective Complaint: shortness of breath, cough - Related Data Home Medications Medication Instructions Recorded Confirmed Acetaminophen [Tylenol] 500 mg PO Q6H PRN 08/26/16 06/27/18 Primidone [Mysoline] 50 mg PO BID 08/26/16 06/27/18 Theophylline Anhydrous [Curt-24] 100 mg PO DAILY 10/04/16 06/27/18 Roflumilast [Daliresp] 500 mcg PO DAILY 11/02/16 06/27/18 Buspirone HCl [Buspar] 15 mg PO BID 02/28/17 06/27/18 GuaiFENesin ER [Mucinex] 600 mg PO Q12H PRN 02/28/17 06/27/18 Calcium Carbonate [Calcium] 600 mg PO BIDWM 05/27/17 06/27/18 Lovastatin 40 mg PO HS 05/27/17 06/27/18 Sertraline [Zoloft] 50 mg PO DAILY 05/27/17 06/27/18 Tiotropium [place] [Spiriva 2 puff IH DAILY 05/27/17 06/27/18 Respimat] Metoprolol [Lopressor] 25 mg PO BID 06/06/17 06/27/18 Mometasone/Formoterol [Dulera 100 2 puff IH BID 09/02/17 04/03/18 Mcg/5 Mcg Inhaler] Omeprazole [PriLOSEC] 20 mg PO DAILY 09/02/17 06/27/18 Simethicone [Gas Relief] 180 mg PO Q4H PRN 09/02/17 04/03/18 GuaiFENesin Liq [Robitussin Liq] 200 mg PO Q6HR PRN 12/16/17 04/03/18 Tramadol HCl [Ultram] 50 - 100 mg PO QID PRN 12/16/17 04/03/18 HYDROcodone/Acet 5/325 mg [[place] 1 tab PO Q6H PRN 01/10/18 04/03/18 5-325 mg] Ipratropium/Albuterol Neb [Duoneb] 3 ml IH Q4HR PRN 01/10/18 04/03/18 Albuterol Sulfate [Proair Hfa] 2 puff PO Q4H PRN 04/03/18 06/27/18 Diphenoxylate/Atropine [Lomotil 2 each PO QID PRN 04/03/18 06/27/18 2.5 mg/0.025 mg] Potassium Chloride [K-Tab ER] 20 meq PO BID 04/03/18 06/27/18 Previous Rx's Medication Instructions Recorded Aspirin 81 mg PO DAILY #30 tab.chew 05/20/16 Alendronate Sodium/Vitamin D3 1 tab PO QWEEK #1 tab 01/13/18 [Fosamax Plus D 70 mg-2,800 Iu] Doxycycline Hyclate 100 mg PO BID #14 capsule 06/27/18 Allergies Allergy/AdvReac Type Severity Reaction Status Date / Time azithromycin [From Zithromax] AdvReac See Verified 12/16/17 10:00 Comments hydrochlorothiazide AdvReac Difficulty Verified 12/16/17 10:00 Breathing ibuprofen [From Motrin] AdvReac Gastrointestinal Verified 12/16/17 10:00 Upset levofloxacin [From Levaquin] AdvReac See Verified 12/16/17 10:00 Comments All systems ED: reviewed and negative except as stated. Review of Systems: As Per HPI Constitutional: Denies: fever, chills ENT ED: Denies: congestion Cardiovascular: Reports: chest pain Respiratory: Reports: cough, dyspnea Gastrointestinal: Reports: abdominal pain (Chronic). Denies: nausea, vomiting Genitourinary: Denies: dysuria Musculoskeletal: Denies: back pain, neck pain Neurological: Denies: headache, weakness Past Medical History - Past Medical History Attestation: Yes The following information was validated with the patient. Source: patient Medical history: Reports: atrial fibrillation, COPD, CVA, DVT, hyperlipidemia, hypertension, kidney stones Surgical history: Reports: tonsilectomy, other Psychiatric history: Reports: anxiety, depression - Social History Smoking Status: Former smoker Smokeless Tobacco Status: No Alcohol use: Reports: none Drug use: Reports: none Physical Exam - General Limitations: no limitations General appearance: alert, in no apparent distress - Head Head exam: atraumatic, normocephalic, normal inspection - Eye Eye exam: Present: normal appearance, PERRL, EOMI - ENT ENT exam: normal exam, normal oropharynx, mucous membranes moist - Neck Neck exam: Present: normal inspection, full ROM, trachea midline - Chest Chest inspection: Present: normal inspection, symmetric chest wall rise - Respiratory Respiratory exam: Present: normal lung sounds bilaterally, other (Diminished aeration bilaterally). Absent: respiratory distress, wheezes - Cardiovascular Cardiovascular exam: Present: regular rate, normal rhythm, normal heart sounds - Abdominal Exam Abdominal exam: Present: soft, tenderness, normal bowel sounds. Absent: distention, guarding, rebound, rigidity Abdominal tenderness: Present: diffuse - Extremities Exam Extremities exam: Present: normal inspection, full ROM. Absent: tenderness, pedal edema - Back Exam Back exam: Present: normal inspection, full ROM. Absent: tenderness, CVA tenderness (R), CVA tenderness (L) - Neurological Exam Neurological exam: Present: alert, oriented X3 - Psychiatric Psychiatric exam: Present: normal affect, normal mood - Skin Skin exam: Present: warm, dry, intact, normal color. Absent: rash, cyanosis, diaphoresis Course Course Narrative: Patient presents for suspected failed outpatient pneumonia therapy. Patient will receive vancomycin and Zosyn as he is a nursing facility inpatient resident for coverage of HCAP. - Reevaluation(s) Reevaluation #1: Patient has a leukocytosis of 11. Lactate is 1.3. His labs or otherwise unremarkable. Review of his prior visit showed a negative influenza tests. Concern for healthcare associated pneumonia patient will be placed on vancomycin and Zosyn and admitted for further management treatment. He is in agreement wit h this plan. He is aware of his lung mass and states it was negative after being evaluated by quantitative strategy analyst with an outpatient follow-up appointment next month. He also has a remote history of riff fractures on bilateral side. He uses a spirometer at the nursing facility but continues to have discomfort and has been less compliant. Impression is HCAP Time: 10:49 - Consultations Consultation #1: Spoke with on-call hospitalist lisa Markham to admit for HCAP. No further orders at this time Time: 10:50 Vital Signs Temperature 98.3 F 07/08/18 09:47 Pulse Rate 80 07/08/18 09:47 Respiratory Rate 18 07/08/18 09:47 Blood Pressure 127/97 07/08/18 09:47 O2 Sat by Pulse Oximetry 98 07/08/18 09:47 Temperature 98.3 F 07/08/18 09:47 Pulse Rate 80 07/08/18 09:47 Respiratory Rate 18 07/08/18 09:47 Blood Pressure 127/97 07/08/18 09:47 O2 Sat by Pulse Oximetry 96 07/08/18 09:52 Oxygen Delivery Oxygen Delivery Nasal Cannula Shortness of Breath/Dyspnea - MDM Narrative Medical decision making narrative: Patient was discussed with my attending physician who agrees with ED management and final disposition. They independently evaluated the patient. Please refer to their attestation to this encounter for additional information. This note was generated by [employer] voice recognition software and as a result grammatical or spelling errors may occur using this program. - Medical Records Medical records reviewed: Yes I reviewed the patient's medical records. - Lab Data Lab results reviewed: Yes I reviewed the patient's lab results. Result diagrams: 07/08/18 09:53 07/08/18 09:53 Lab Results 07/08/18 07/08/18 07/08/18 Range/Units 09:53 09:53 10:04 WBC 11.2 H (4.3-11.1) K/mcL RBC 4.52 (4.19-5.50) M/mcL Hgb 13.2 (12.9-16.9) g/dL Hct 40.9 (37.5-50.1) % MCV 90.5 (83.0-100.0) fL MCH 29.2 (28.0-33.3) pg MCHC 32.3 (31.6-35.5) g/dL RDW 13.2 (11.5-14.5) % Plt Count 393 (140-400) K/mcL MPV 10.1 (9.4-12.4) fL Immature Gran % 0.5 (0-4) % Seg Neutrophils % 83.0 % Lymphocytes % 7.4 % Monocytes % 8.0 % Eosinophils % 0.8 % Basophils % 0.3 % Neutrophils # 9.3 H (1.6-8.9) K/mcL Lymphocytes # 0.8 (0.6-4.6) K/mcL Monocytes # 0.9 (0.0-1.3) K/mcL Eosinophils # 0.1 (0.0-0.6) K/mcL Basophils # 0.0 (0.0-0.2) K/mcL Sodium 134 L (136-145) mEq/L Potassium 4.4 (3.5-5.1) mEq/L Chloride 103 (98-107) mEq/L Carbon Dioxide 25 (23-29) mEq/L BUN 17 (8-23) mg/dL Creatinine 0.80 (0.70-1.30) mg/dL Est GFR ( Amer) > 60 (> 60) Est GFR (Non-Af Amer) > 60 (> 60) BUN/Creatinine Ratio 21 (6-26) Glucose 121 H (70-105) mg/dL Calculated Osmolality 281 (280-300) Lactic Acid 1.3 (0.5-2.2) mmol/L Calcium 8.2 L (8.6-10.3) mg/dL Total Bilirubin 0.6 (0.3-1.0) mg/dL Direct Bilirubin 0.2 (0.0-0.2) mg/dL Indirect Bilirubin 0.4 (0.0-1.2) mg/dL AST 17 (13-39) Units/L ALT 12 (7-52) Units/L Alkaline Phosphatase 89 (34-104) Units/L Serum Total Protein 6.6 (6.4-8.9) g/dL Albumin 2.8 L (3.5-5.7) g/dL Globulin 3.8 H (2.4-3.5) g/dL Albumin/Globulin Ratio 0.7 L (1.1-2.2) - Radiology Data Radiology results reviewed: Yes I reviewed the patient's radiology results. Chest X-Ray 07/08/18 09:53 IMPRESSION: 1. Bibasilar lung infiltrates, right side greater than left, concerning for pneumonia. 2. Spiculated mass in the right mid lung field, not appreciably changed from the previous radiograph. 3. Emphysema. D/ / 07/08/2018 10:25:14 Gonzalez Alicea MD / heather Interpreting Provider: Gonzalez Alicea MD
[2018-07-08 10:18] LABS: Basophils % 0.3 %; Eosinophils # 0.1 K/mcL (0.0-0.6); Eosinophils % 0.8 %; Hematocrit 40.9 % (37.5-50.1); Hemoglobin 13.2 g/dL (12.9-16.9); Immature Granulocytes % 0.5 % (0-4); Lymphocytes # 0.8 K/mcL (0.6-4.6); Lymphocytes % 7.4 %; Mean Corpuscular HGB Conc 32.3 g/dL (31.6-35.5); Mean Corpuscular Hemoglobin 29.2 pg (28.0-33.3); Mean Corpuscular Volume 90.5 fL (83.0-100.0); Mean Platelet Volume 10.1 fL (9.4-12.4); Monocytes # 0.9 K/mcL (0.0-1.3); Neutrophils # 9.3 K/mcL (1.6-8.9); Platelet Count 393 K/mcL (140-400); Red Blood Count 4.52 M/mcL (4.19-5.50); Red Cell Distribution Width 13.2 % (11.5-14.5)
[2018-07-08 10:37] LABS: Alanine Aminotransferase 12 Units/L (7-52); Albumin 2.8 g/dL (3.5-5.7); Albumin/Globulin Ratio 0.7 (1.1-2.2); Alkaline Phosphatase 89 Units/L (34-104); Aspartate Amino Transferase 17 Units/L (13-39); BUN/Creatinine Ratio 21 (6-26); Bilirubin,Direct 0.2 mg/dL (0.0-0.2); Bilirubin,Indirect 0.4 mg/dL (0.0-1.2); Bilirubin,Total 0.6 mg/dL (0.3-1.0); Blood Urea Nitrogen 17 mg/dL (8-23); Calcium 8.2 mg/dL (8.6-10.3); Carbon Dioxide 25 mEq/L (23-29); Chloride 103 mEq/L (98-107); Globulin 3.8 g/dL (2.4-3.5); Glucose 121 mg/dL (70-105); Osmolality,Calculated 281 (280-300); Potassium 4.4 mEq/L (3.5-5.1); Sodium 134 mEq/L (136-145); Total Protein 6.6 g/dL (6.4-8.9); eGFR For Non-African Americans > 60 (> 60)
[2018-07-08] MEDS ORDERED: Naloxone 0.4 MG/ML INJ IVP PRN (10:49)
[2018-07-08] MEDS ORDERED: Piperacillin/Tazobactam 3.375 GM in 0.9 % Sodium Chloride Mini Bag 100 ML IVPB ONE (11:00)
[2018-07-08 11:47] LABS: INR 1.4; Prothrombin Time 15.7 Seconds (9.4-12.1)
--- NOTE | 2018-07-08 12:02 | Internal Med History&Physical ---
Date of Encounter: 07/08/18 Time of Encounter: 11:56 Internal Medicine - H&P: HPI Chief complaint: shortness of breath Admitted From: Home Plans for Post Hospital Care: Home History of present illness: Mr. 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 Patient presented to the ED due to shortness of breath and productive cough of one day duration. Patient reports last night he woke up with significant shortness of breath and a persistent productive cough of yellowish/clear sputum. Reports subjective fever. Also reports being treated recently with antibiotics for a possible pneumonia, but stated that he continues to have productive cough and significant weakness. Reports poor PO intake and has not been able to have a full meal for the past week. Denies chest pain, reports abdominal discomfort mainly when he coughs. Denies urinary symptoms. Past Med Surg Social Fam HX - Past Medical History Medical history: atrial fibrillation, COPD, CVA, DVT, hyperlipidemia, hypertension, kidney stones Additional medical history: Emphysema Psychiatric history: anxiety, depression - Past Surgical History Surgical History: tonsilectomy, other Additional surgical history: Herniated testical repair 1961, teeth removed - Social History Smoking Status: Former smoker Smokeless Tobacco Status: No Alcohol use: none Drug use: none - Family History Brother Family Member Ethnicity: Non- Living Status: Mother Adopted: No Family Member Ethnicity: Non- Living Status: Hx Family Cardiac Disorders: No Hx Family Respiratory Disorders: Yes Hx Family Cancer: Yes (lung) Hx Family GI Disorders: No Hx Family Endocrine Disorder: No Hx Family Neuromuscular Disorders: No Hx Family Neurologic Disorders: No Hx Family HEENT Disorders: No Hx Family Autoimmune Disorders: No Father Adopted: No Family Member Ethnicity: Non- Living Status: Hx Family Cardiac Disorders: No Hx Family Respiratory Disorders: Yes Hx Family Cancer: No Hx Family GI Disorders: No Hx Family Endocrine Disorder: No Hx Family Neuromuscular Disorders: No Hx Family Neurologic Disorders: No Hx Family HEENT Disorders: No Hx Family Autoimmune Disorders: No Internal Medicine - H&P: Meds Aspirin 81 mg PO DAILY #30 tab.chew 05/20/16 [Rx] Acetaminophen [Tylenol] 500 mg PO Q6H PRN 08/26/16 [History] Primidone [Mysoline] 50 mg PO BID 08/26/16 [History] Theophylline Anhydrous [Curt-24] 100 mg PO DAILY 10/04/16 [History] Roflumilast [Daliresp] 500 mcg PO DAILY 11/02/16 [History] Buspirone HCl [Buspar] 15 mg PO BID 02/28/17 [History] GuaiFENesin ER [Mucinex] 600 mg PO Q12H PRN 02/28/17 [History] Calcium Carbonate [Calcium] 600 mg PO BIDWM 05/27/17 [History] Lovastatin 40 mg PO HS 05/27/17 [History] Sertraline [Zoloft] 50 mg PO DAILY 05/27/17 [History] Tiotropium [place] [Spiriva Respimat] 2 puff IH DAILY 05/27/17 [History] Metoprolol [Lopressor] 25 mg PO BID 06/06/17 [History] Mometasone/Formoterol [Dulera 100 Mcg/5 Mcg Inhaler] 2 puff IH BID 09/02/17 [History] Omeprazole [PriLOSEC] 20 mg PO DAILY 09/02/17 [History] Simethicone [Gas Relief] 180 mg PO Q4H PRN 09/02/17 [History] GuaiFENesin Liq [Robitussin Liq] 200 mg PO Q6HR PRN 12/16/17 [History] Tramadol HCl [Ultram] 50 - 100 mg PO QID PRN 12/16/17 [History] HYDROcodone/Acet 5/325 mg [Gardner 5-325 mg] 1 tab PO Q6H PRN 01/10/18 [History] Ipratropium/Albuterol Neb [Duoneb] 3 ml IH Q4HR PRN 01/10/18 [History] Alendronate Sodium/Vitamin D3 [Fosamax Plus D 70 mg-2,800 Iu] 1 tab PO QWEEK #1 tab 01/13/18 [Rx] Albuterol Sulfate [Proair Hfa] 2 puff PO Q4H PRN 04/03/18 [History] Diphenoxylate/Atropine [Lomotil 2.5 mg/0.025 mg] 2 each PO QID PRN 04/03/18 [History] Potassium Chloride [K-Tab ER] 20 meq PO BID 04/03/18 [History] Doxycycline Hyclate 100 mg PO BID #14 capsule 06/27/18 [Rx] Allergy/AdvReac Type Severity Reaction Status Date / Time azithromycin [From Zithromax] AdvReac See Verified 12/16/17 10:00 Comments hydrochlorothiazide AdvReac Difficulty Verified 12/16/17 10:00 Breathing ibuprofen [From Motrin] AdvReac Gastrointestinal Verified 12/16/17 10:00 Upset levofloxacin [From Levaquin] AdvReac See Verified 12/16/17 10:00 Comments All Systems PM: A 10-system review of systems was performed and is negative for pertinent findings except as documented above in the HPI. - Constitutional Constitutional: chills, fever(s) (subjective. ), weakness - EENT Eyes: no blurry vision, no discharge - Cardiovascular Cardiovascular ROS IM: chest pain, dyspnea, dyspnea on exertion, no edema, no irregular heart rhythm, no lightheadedness, no palpitations, no paroxysmal nocturnal dyspnea - Respiratory Respiratory: cough, chest congestion, excessive phlegm production, change in phlegm color, no pain with cough - Gastrointestinal Gastrointestinal: loose stools, no abdominal pain, no diarrhea, no nausea, no vomiting - Genitourinary Genitourinary ROS male: no dysuria, no urinary frequency, no urinary hesitancy, no urinary incontinence, no urinary urgency - Musculoskeletal Musculoskeletal ROS IM: no atrophy, no muscle weakness - Integumentary Integumentary IM: no erythema, no unusual bruising - Neurological Neurological ROS: no focal weakness, no frequent falls, no headache(s) - Psychiatric Psychiatric: no anxiety, no hopelessness, no irritability - Endocrine Endocrine IM: no cold intolerance, no excessive sweating - Hematologic/Lymphatic Hematologic/Lymphatic: no lymphadenopathy - Allergic/Immunologic Allergic/Immunologic: no wheezing, no GI upset with certain foods Additional comments: Rest of a 10 review of system negative. - Constitutional Vitals: Temp Pulse Resp BP Pulse Ox 98.3 F 80 18 127/97 96 07/08/18 09:47 07/08/18 09:47 07/08/18 09:47 07/08/18 09:47 07/08/18 09:52 Exam: Vitals: Reviewed General: Alert and oriented x4. In mild distress due to generalized weakness. Skin: Normal color, no rash, no lesions. HEENT: EOM, pupils equal, round and reactive. Cardiovascular: RRR, normal S1 & S2, no rubs, murmurs or gallops. Lungs: decreased breath sounds in the left lower lobe, no wheezing or rales. Abdomen: Soft, non-tender, no rigidity. Extremities: No deformity, no edema or tenderness, no joint swelling or clubbing. Neurological: Normal cognition and motor skills. Rest of the physical exam is non contributory Internal Med - H&P Results - Labs CBC & Chem 7: 07/08/18 09:53 07/08/18 09:53 Labs: Short CBC 07/08/18 Range/Units 09:53 WBC 11.2 H (4.3-11.1) K/mcL Hgb 13.2 (12.9-16.9) g/dL Hct 40.9 (37.5-50.1) % Plt Count 393 (140-400) K/mcL Neutrophils # 9.3 H (1.6-8.9) K/mcL BMP 07/08/18 09:53 Sodium 134 L Potassium 4.4 Chloride 103 Carbon Dioxide 25 BUN 17 Creatinine 0.80 Glucose 121 H Calcium 8.2 L Liver Function 07/08/18 Range/Units 09:53 Total Bilirubin 0.6 (0.3-1.0) mg/dL Direct Bilirubin 0.2 (0.0-0.2) mg/dL AST 17 (13-39) Units/L ALT 12 (7-52) Units/L Alkaline Phosphatase 89 (34-104) Units/L Albumin 2.8 L (3.5-5.7) g/dL - Impressions ITS Impressions Chest X-Ray 07/08/18 09:53 IMPRESSION: 1. Bibasilar lung infiltrates, right side greater than left, concerning for pneumonia. 2. Spiculated mass in the right mid lung field, not appreciably changed from the previous radiograph. 3. Emphysema. D/ / 07/08/2018 10:25:14 Gonzalez Alicea MD / heather Interpreting Provider: Gonzalez Alicea MD - Diagnostic Studies Chest x-ray Status: image reviewed by me (right > left lower lobe infiltrate ) - Assessment and Plan (1) HCAP (healthcare-associated pneumonia) Current Visit: Yes Status: Acute Assessment and plan: XR/XR chest 1V portable IMPRESSION: 1. Bibasilar lung infiltrates, right side greater than left, concerning for pneumonia. 2. Spiculated mass in the right mid lung field, not appreciably changed from the previous radiograph. 3. Emphysema. patient recently treated with IV antibiotics. today presenting with shortness of breath, and productive cough. Plan Started on bronchodilators Q4RT PRN Incentive spirometry Empiric antibiotics coverage with piperacillin/tazobactam 3.375mg/IV Q8HRs plus vancomycin per pharmacy protocol. Sputum culture and gram stain Urine for atypical organism Titrate for O2Sat >92% (2) DVT prophylaxis Current Visit: No Status: Acute Assessment and plan: Heparin subcutaneous. (3) Generalized weakness Current Visit: No Status: Chronic Assessment and plan: PT/OT. (4) AF (atrial fibrillation) Current Visit: No Status: Chronic Assessment and plan: Patient reports he has been diagnosed with paroxysmal A. fib. On metoprolol for rate control. On aspirin 81 mg for secondary stroke prevention. Qualifiers: Atrial fibrillation type: unspecified Qualified Code(s): I48.91 - Unspecified atrial fibrillation (5) COPD (chronic obstructive pulmonary disease) Current Visit: No Status: Chronic Assessment and plan: Not on acute exacerbation. Continue Spiriva home medication. Started on bronchodilators every 4 hours when necessary. Qualifiers: COPD type: chronic bronchitis Chronic bronchitis type: simple Qualified Code(s): J41.0 - Simple chronic bronchitis (6) HLD (hyperlipidemia) Current Visit: No Status: Chronic Assessment and plan: On lovastatin 40 mg by mouth at bedtime. Qualifiers: Hyperlipidemia type: pure hypercholesterolemia Qualified Code(s): E78.00 - Pure hypercholesterolemia, unspecified; E78.0 - Pure hypercholesterolemia (7) Hypertension Current Visit: No Status: Chronic Assessment and plan: Blood pressures well controlled on metoprolol 25 mg by mouth twice a day. Qualifiers: Hypertension type: essential hypertension Qualified Code(s): I10 - Essential (primary) hypertension (8) Depression Current Visit: Yes Status: Chronic Assessment and plan: Continue sertraline 50 mg by mouth daily. Qualifiers: Depression Type: unspecified Qualified Code(s): F32.9 - Major depressive disorder, single episode, unspecified - Time Spent With Patient Total time spent is greater than 50% in coordination of care (as documented) at patient's floor/unit and/or counseling patient: Greater than 35 minutes (40)
[2018-07-08] MEDS: *HR* Heparin 5,000 UNIT/ML VIAL SQ SCH ×2 (13:58→21:28)
[2018-07-08] MEDS: Ipratropium/Albuterol Neb 3 ML IH SCH ×3 (14:08→19:54)
[2018-07-08] MEDS: Piperacillin/Tazobactam 3.375 GM in 0.9 % Sodium Chloride Mini Bag 100 ML IVPB SCH (17:18)
[2018-07-09] MEDS: Ipratropium/Albuterol Neb 3 ML IH SCH ×7 (00:17→23:47)
[2018-07-09] MEDS: Piperacillin/Tazobactam 3.375 GM in 0.9 % Sodium Chloride Mini Bag 100 ML IVPB SCH ×3 (01:48→16:47)
[2018-07-09 04:56] LABS: Basophils # 0.1 K/mcL (0.0-0.2); Basophils % 0.6 %; Eosinophils # 0.1 K/mcL (0.0-0.6); Eosinophils % 1.3 %; Hematocrit 37.3 % (37.5-50.1); Hemoglobin 11.9 g/dL (12.9-16.9); Immature Granulocytes % 0.6 % (0-4); Lymphocytes # 0.9 K/mcL (0.6-4.6); Lymphocytes % 9.7 %; Mean Corpuscular HGB Conc 31.9 g/dL (31.6-35.5); Mean Corpuscular Hemoglobin 29.1 pg (28.0-33.3); Mean Corpuscular Volume 91.2 fL (83.0-100.0); Monocytes # 0.8 K/mcL (0.0-1.3); Monocytes % 8.9 %; Neutrophils # 7.2 K/mcL (1.6-8.9); Platelet Count 333 K/mcL (140-400); Red Blood Count 4.09 M/mcL (4.19-5.50); Red Cell Distribution Width 13.2 % (11.5-14.5); Segmented Neutrophils % 78.9 %
[2018-07-09 05:12] LABS: BUN/Creatinine Ratio 20 (6-26); Blood Urea Nitrogen 16 mg/dL (8-23); Carbon Dioxide 24 mEq/L (23-29); Chloride 104 mEq/L (98-107); Glucose 144 mg/dL (70-105); Magnesium 1.9 mg/dL (1.6-2.6); Osmolality,Calculated 284 (280-300); Phosphorous 3.5 mg/dL (2.7-4.5); Sodium 135 mEq/L (136-145); eGFR For Non-African Americans > 60 (> 60)
[2018-07-09] MEDS: *HR* Heparin 5,000 UNIT/ML VIAL SQ SCH ×3 (05:50→21:09)
[2018-07-09] MEDS ORDERED: Aminoglycoside Consult 1 EACH MC ONE (07:25)
[2018-07-09] MEDS ORDERED: Aspirin Enteric Coated 81 MG Tablet PO SCH (09:00)
[2018-07-09] MEDS ORDERED: Tiotropium 18 MCG inhalation IH SCH (10:00)
--- NOTE | 2018-07-09 11:42 | Internal Med Progress Note ---
<Dave Oswald - Last Filed: 07/09/18 11:38> Hospitalist Progress Note - Encounter Date of Encounter: 07/09/18 Time of Encounter: 09:00 - Subjective Interval History: Patient reports his shortness of breath has improved. He denies any chest pain abdominal pain nausea vomiting. He reports some decreased urine production. He reports productive cough. He is at his baseline oxygen to 2 L. Patient initially presented to [facility] emergency room on 06/27/2018 and was found to have pneumonia and discharged with doxycycline. Patient shortness of breath did not improve and he had a repeat chest x-ray performed in the nursing facility which showed persistent right lower lobe pneumonia. - Exam Vitals: Temp Pulse Resp BP Pulse Ox 98.0 F 80 18 108/73 96 07/09/18 07:34 07/09/18 07:34 07/09/18 11:00 07/09/18 07:34 07/09/18 11:00 Exam: General: pleasant, without distress Cardiovascualr: Regular rate and rhythm with no murmur, absent gallops or rubs, absent pedal edema, radial pulses 2 out of 4 Lungs: Clear to auscultation bilaterally, not in respiratory distress Abdomen: Soft nontender, nondistended positive bowel sounds, Skin: warm and dry, absent rash, absent open wounds and nodules MSK: absent clubbing, cyanosis, joints without swelling Neuro: Cranial nerves II through XII intact, UE and LE sensation equal bila terally, UE and LEstrength 4/5, alert oriented 3, Psych: good insight and judgment - Assessment and Plan (1) Pneumonia Current Visit: Yes Status: Resolved Assessment and Plan: Chest x-ray shows bibasilar lung infiltrates, right side greater than left Speaking of mass in the right midlung field: Patient has been worked up for this mass in [place] and was found to have negative path results for malignancy Currently on home 2 L oxygen Sputum culture, blood cultures pending Patient had an influenza swab 06/27 which was negative Failed doxycycline outpatient MRSa nasal swab We will continue vancomycin and Zosyn and await sensitivities. (2) Chronic respiratory failure Current Visit: Yes Status: Acute Assessment and Plan: Secondary to COPD Continue supplemental oxygen of 2 L. (3) Inflammatory bowel disease Current Visit: Yes Status: Acute Assessment and Plan: Patient had a colonoscopy in March 2018 showing signs of ulcerative colitis and was started on budesonide. He followed up with GI outpatient and was told to continue budesonide We will continue Patient. (4) History of CVA (cerebrovascular accident) Current Visit: Yes Status: Acute Assessment and Plan: Patient has history of CVA Continue aspirin, statin (5) AF (atrial fibrillation) Current Visit: Yes Status: Chronic Assessment and Plan: Patient has history of atrial fibrillation Continue metoprolol Not on anticoagulation (6) COPD (chronic obstructive pulmonary disease) Current Visit: Yes Status: Chronic Assessment and Plan: History of COPD not an exacerbation Continue to feel Tamy Griggs (7) Lung nodule Current Visit: Yes Status: Acute Assessment and Plan: Patient has a right spiculated nodule in nodule followed by pulmonology in the outpatient setting Initial bronchoscopy with biopsy was negative Follow-up with pulmonology outpatient (8) Decreased urine output Current Visit: Yes Status: Acute Assessment and Plan: She complains of increased urine output we will obtain a bladder scan. Kidney function is stable Urinalysis negative for UTI (9) Physical deconditioning Current Visit: Yes Status: Acute Assessment and Plan: PT OT - Time Spent with Patient Total time spent is greater than 50% in coordination of care (as documented) at patient's floor/unit and/or counseling patient: Internal Medicine: Result - Labs CBC & Chem 7: 07/09/18 04:10 07/09/18 04:10 Labs: Short CBC 07/09/18 Range/Units 04:10 WBC 9.1 (4.3-11.1) K/mcL Hgb 11.9 L (12.9-16.9) g/dL Hct 37.3 L (37.5-50.1) % Plt Count 333 (140-400) K/mcL Neutrophils # 7.2 (1.6-8.9) K/mcL BMP 07/09/18 04:10 Sodium 135 L Potassium 4.0 Chloride 104 Carbon Dioxide 24 BUN 16 Creatinine 0.82 Glucose 144 H Calcium 8.0 L - ABG Interpretation ABG results: PT/INR, D-dimer PT 15.7 Seconds (9.4-12.1) H 07/08/18 10:56 Consult Discharge Plan - Plan Referrals: Flex De La Garza MD [Primary Care Provider] - <Gisselle Kingston - Last Filed: 07/09/18 13:10> Hospitalist Progress Note - Encounter Date of Encounter: 07/09/18 - Exam Vitals: Temp Pulse Resp BP Pulse Ox 98.1 F 76 16 108/70 94 07/09/18 11:42 07/09/18 11:42 07/09/18 11:42 07/09/18 11:42 07/09/18 11:42 - Assessment and Plan (1) COPD (chronic obstructive pulmonary disease) Current Visit: Yes Status: Chronic (2) Hypertension Current Visit: No Status: Chronic (3) DVT prophylaxis Current Visit: No Status: Acute (4) HCAP (healthcare-associated pneumonia) Current Visit: Yes Status: Acute (5) HLD (hyperlipidemia) Current Visit: No Status: Chronic (6) Generalized weakness Current Visit: No Status: Chronic (7) AF (atrial fibrillation) Current Visit: Yes Status: Chronic (8) Depression Current Visit: Yes Status: Chronic - Time Spent with Patient Total time spent is greater than 50% in coordination of care (as documented) at patient's floor/unit and/or counseling patient: Internal Medicine: Result - Labs CBC & Chem 7: 07/09/18 04:10 07/09/18 04:10 Labs: Short CBC 07/09/18 Range/Units 04:10 WBC 9.1 (4.3-11.1) K/mcL Hgb 11.9 L (12.9-16.9) g/dL Hct 37.3 L (37.5-50.1) % Plt Count 333 (140-400) K/mcL Neutrophils # 7.2 (1.6-8.9) K/mcL BMP 07/09/18 04:10 Sodium 135 L Potassium 4.0 Chloride 104 Carbon Dioxide 24 BUN 16 Creatinine 0.82 Glucose 144 H Calcium 8.0 L - ABG Interpretation ABG results: PT/INR, D-dimer PT 15.7 Seconds (9.4-12.1) H 07/08/18 10:56 - Attending Attestation I examined this patient and my medical decision-making was reviewed with the Resident Physician Dr Oswald. I agree with the documented findings, disposition and treatment plan as described except to the extent set forth below. Mr Steven is being observed for multifocal pna refractory to outpt treatment awake, no sob at rest but sob with exertion, + cough, denies wheezing, fevers, chills. feels as if he is retaingin urine which he notes he has done in past hospitalizations gen- awake, alert, appears stated age cv- rrr, no murmurs appreciated, no le edema lungs- course bl bases bs, no wheezing, no crackles, normal resp effort on O2 NC abd- soft, nt, nd, + bs Multifocal Bibasilar pna, orgnaism not yet known -cont nebs, vanc + zosyn, attempt to ID organism Acute on Chronic resp failure as evidenced bu inital o2 requirement greater than home 2L NC Severe COPD Emphysema Hx -pna treatment as above, nebs, wean o2 as able pAfib hx- cont home BB + asa, monitor lytes Rule out urinary retention- obtain bladder scan, straight cath prn further diagnoses and plan as noted by resident <Dave Oswald - Last Filed: 07/09/18 11:38> (1) Pneumonia Qualifiers: Pneumonia type: due to unspecified organism Laterality: right Lung location: lower lobe of lung Qualified Code(s): J18.1 - Lobar pneumonia, unspecified organism (2) Chronic respiratory failure Qualifiers: Respiratory failure complication: hypoxia Qualified Code(s): J96.11 - Chronic respiratory failure with hypoxia (5) AF (atrial fibrillation) Qualifiers: Atrial fibrillation type: chronic Qualified Code(s): I48.2 - Chronic atrial fibrillation (6) COPD (chronic obstructive pulmonary disease) Qualifiers: COPD type: chronic bronchitis Chronic bronchitis type: simple Qualified Code(s): J41.0 - Simple chronic bronchitis <Gisselle Kingston - Last Filed: 07/09/18 13:10> (1) COPD (chronic obstructive pulmonary disease) Qualifiers: COPD type: chronic bronchitis Chronic bronchitis type: simple Qualified Code(s): J41.0 - Simple chronic bronchitis (2) Hypertension Qualifiers: Hypertension type: essential hypertension Qualified Code(s): I10 - Essential (primary) hypertension (5) HLD (hyperlipidemia) Qualifiers: Hyperlipidemia type: pure hypercholesterolemia Qualified Code(s): E78.00 - Pure hypercholesterolemia, unspecified; E78.0 - Pure hypercholesterolemia (7) AF (atrial fibrillation) Qualifiers: Atrial fibrillation type: chronic Qualified Code(s): I48.2 - Chronic atrial fibrillation (8) Depression Qualifiers: Depression Type: unspecified Qualified Code(s): F32.9 - Major depressive disorder, single episode, unspecified
[2018-07-09] MEDS ORDERED: Cholestyramine 4 GM POWD.PACK PO PRN (11:46)
[2018-07-09] MEDS: BUDESONIDE 6 MG PO SCH (12:30)
[2018-07-09] MEDS ORDERED: LOVASTATIN 40 MG PO SCH (21:00)
[2018-07-09] MEDS: Primidone 50 MG TABLET PO SCH (21:09)
[2018-07-09] MEDS ORDERED: Mag Hydrox/Al Hydrox/Simeth 30 ML UDC PO PRN (21:33)
[2018-07-10] MEDS: traMADol 50 MG TABLET PO PRN ×2 (00:08→17:27)
[2018-07-10] MEDS: Piperacillin/Tazobactam 3.375 GM in 0.9 % Sodium Chloride Mini Bag 100 ML IVPB SCH ×3 (02:03→17:31)
[2018-07-10] MEDS: Ondansetron 4 MG/2 ML VIAL IVP PRN ×2 (03:53→03:57)
[2018-07-10] MEDS: Ipratropium/Albuterol Neb 3 ML IH SCH ×5 (04:31→20:09)
[2018-07-10] MEDS: *HR* Heparin 5,000 UNIT/ML VIAL SQ SCH (06:00)
[2018-07-10] MEDS: Tiotropium 18 MCG inhalation IH SCH (08:05)
[2018-07-10] MEDS: Primidone 50 MG TABLET PO SCH ×2 (08:21→20:32)
[2018-07-10] MEDS: (Roflumilast [Daliresp] 500 MCG) PO SCH (08:22)
[2018-07-10] MEDS: (Breo Ellipta 100-25 Mcg Inh) PO SCH (08:22)
[2018-07-10] MEDS: BUDESONIDE 6 MG PO SCH (08:22)
[2018-07-10] MEDS: Pantoprazole 40 MG VIAL IVP SCH ×2 (08:59→17:27)
[2018-07-10] MEDS ORDERED: Aspirin 81 MG TAB.CHEW PO SCH (09:00)
[2018-07-10 09:32] LABS: Basophils % 0.4 %; Eosinophils # 0.1 K/mcL (0.0-0.6); Eosinophils % 1.5 %; Hematocrit 39.2 % (37.5-50.1); Hemoglobin 12.6 g/dL (12.9-16.9); Immature Granulocytes % 0.3 % (0-4); Lymphocytes # 1.1 K/mcL (0.6-4.6); Lymphocytes % 11.7 %; Mean Corpuscular HGB Conc 32.1 g/dL (31.6-35.5); Mean Corpuscular Hemoglobin 29.6 pg (28.0-33.3); Mean Corpuscular Volume 92.2 fL (83.0-100.0); Mean Platelet Volume 9.8 fL (9.4-12.4); Monocytes # 0.8 K/mcL (0.0-1.3); Neutrophils # 7.2 K/mcL (1.6-8.9); Platelet Count 341 K/mcL (140-400); Red Blood Count 4.25 M/mcL (4.19-5.50); Red Cell Distribution Width 13.2 % (11.5-14.5); Segmented Neutrophils % 77.1 %
[2018-07-10 09:43] LABS: INR 1.4; Prothrombin Time 15.3 Seconds (9.4-12.1)
[2018-07-10 10:02] LABS: Alanine Aminotransferase 14 Units/L (7-52); Albumin 2.6 g/dL (3.5-5.7); Albumin/Globulin Ratio 0.8 (1.1-2.2); Alkaline Phosphatase 84 Units/L (34-104); Aspartate Amino Transferase 21 Units/L (13-39); BUN/Creatinine Ratio 14 (6-26); Bilirubin,Total 0.6 mg/dL (0.3-1.0); Blood Urea Nitrogen 12 mg/dL (8-23); Calcium 8.2 mg/dL (8.6-10.3); Carbon Dioxide 29 mEq/L (23-29); Chloride 103 mEq/L (98-107); Globulin 3.4 g/dL (2.4-3.5); Glucose 120 mg/dL (70-105); Osmolality,Calculated 287 (280-300); Potassium 4.5 mEq/L (3.5-5.1); Sodium 138 mEq/L (136-145); eGFR For Non-African Americans > 60 (> 60)
--- NOTE | 2018-07-10 11:25 | Internal Med Progress Note ---
<Dave Oswald - Last Filed: 07/10/18 12:46> Hospitalist Progress Note - Encounter Date of Encounter: 07/10/18 Time of Encounter: 12:46 - Subjective Interval History: Overnight patient had 400 mL of block vomiting. He reports epigastric pain with coughing. He reports his shortness breath is at baseline. His cough frequency has decreased. - Exam Vitals: Temp Pulse Resp BP Pulse Ox 98.6 F 76 18 116/81 96 07/10/18 07:17 07/10/18 07:17 07/10/18 08:05 07/10/18 07:17 07/10/18 08:05 Exam: General: pleasant, without distress Cardiovascualr: Regular rate and rhythm with no murmur, absent gallops or rubs, absent pedal edema, radial pulses 2 out of 4 Lungs: Clear to auscultation bilaterally, not in respiratory distress Abdomen: Soft epigastric tenderness nondistended positive bowel sounds, Skin: warm and dry, absent rash, absent open wounds and nodules MSK: absent clubbing, cyanosis, joints without swelling Neuro: Cranial nerves II through XII intact, UE and LE sensation equal bilaterally, UE and LEstrength 4/5, alert oriented 3, Psych: good insight and judgment - Assessment and Plan (1) Upper GI bleed Current Visit: Yes Status: Acute Assessment and Plan: Patient had 4 mL of black vomiting overnight. Hemoglobin is 12.6 this morning. Was 13.2 on admission Reports epigastric pain which worsens with coughing. Nothing by mouth Pantoprazole 40 IV twice a day GI consult Trend H&H (2) Pneumonia Current Visit: Yes Status: Resolved Assessment and Plan: Chest x-ray shows bibasilar lung infiltrates, right side greater than left Speaking of mass in the right midlung field: Patient has been worked up for this mass in [place] and was found to have negative path results for malignancy Currently on home 2 L oxygen Sputum culture, blood cultures pending Patient had an influenza swab 06/27 which was negative Failed doxycycline outpatient MRSa nasal swab negative Discontinue vancomycin Continue Zosyn Await culture results and sensitivity (3) Chronic respiratory failure Current Visit: Yes Status: Acute Assessment and Plan: Secondary to COPD Continue supplemental oxygen of 2 L. (4) Inflammatory bowel disease Current Visit: Yes Status: Acute Assessment and Plan: Patient had a colonoscopy in March 2018 showing signs of ulcerative colitis and was started on budesonide. He followed up with GI outpatient and was told to continue budesonide We will continue Patient. (5) History of CVA (cerebrovascular accident) Current Visit: Yes Status: Acute Assessment and Plan: Patient has history of CVA Holding aspirin due to suspected GI bleed, continue statin (6) AF (atrial fibrillation) Current Visit: Yes Status: Chronic Assessment and Plan: Patient has history of atrial fibrillation Continue metoprolol Not on anticoagulation (7) COPD (chronic obstructive pulmonary disease) Current Visit: Yes Status: Chronic (8) Lung nodule Current Visit: Yes Status: Acute Assessment and Plan: Patient has a right spiculated nodule in nodule followed by pulmonology in the outpatient setting Initial bronchoscopy with biopsy was negative Follow-up with pulmonology outpatient (9) Decreased urine output Current Visit: Yes Status: Acute Assessment and Plan: Strict I's and O's Normal kidney function (10) Physical deconditioning Current Visit: Yes Status: Acute Assessment and Plan: PT OT consult - Time Spent with Patient Total time spent is greater than 50% in coordination of care (as documented) at patient's floor/unit and/or counseling patient: Internal Medicine: Result - Labs CBC & Chem 7: 07/10/18 08:48 07/10/18 08:48 Labs: Short CBC 07/10/18 Range/Units 08:48 WBC 9.3 (4.3-11.1) K/mcL Hgb 12.6 L (12.9-16.9) g/dL Hct 39.2 (37.5-50.1) % Plt Count 341 (140-400) K/mcL Neutrophils # 7.2 (1.6-8.9) K/mcL BMP 07/10/18 08:48 Sodium 138 Potassium 4.5 Chloride 103 Carbon Dioxide 29 BUN 12 Creatinine 0.83 Glucose 120 H Calcium 8.2 L Liver Function 07/10/18 Range/Units 08:48 Total Bilirubin 0.6 (0.3-1.0) mg/dL AST 21 (13-39) Units/L ALT 14 (7-52) Units/L Alkaline Phosphatase 84 (34-104) Units/L Albumin 2.6 L (3.5-5.7) g/dL - ABG Interpretation ABG results: PT/INR, D-dimer PT 15.3 Seconds (9.4-12.1) H 07/10/18 08:48 Consult Discharge Plan - Plan Referrals: Flex De La Garza MD [Primary Care Provider] - <Gisselle Kingston - Last Filed: 07/10/18 13:05> Hospitalist Progress Note - Encounter Date of Encounter: 07/10/18 - Exam Vitals: Temp Pulse Resp BP Pulse Ox 98.3 F 97 19 113/76 99 07/10/18 11:49 07/10/18 11:49 07/10/18 11:49 07/10/18 11:49 07/10/18 11:49 - Assessment and Plan (1) COPD (chronic obstructive pulmonary disease) Current Visit: Yes Status: Chronic (2) Hypertension Current Visit: No Status: Chronic (3) DVT prophylaxis Current Visit: No Status: Acute (4) HCAP (healthcare-associated pneumonia) Current Visit: Yes Status: Acute (5) HLD (hyperlipidemia) Current Visit: No Status: Chronic (6) Generalized weakness Current Visit: No Status: Chronic (7) AF (atrial fibrillation) Current Visit: Yes Status: Chronic (8) Depression Current Visit: Yes Status: Chronic - Time Spent with Patient Total time spent is greater than 50% in coordination of care (as documented) at patient's floor/unit and/or counseling patient: Internal Medicine: Result - Labs CBC & Chem 7: 07/10/18 08:48 07/10/18 08:48 Labs: Short CBC 07/10/18 Range/Units 08:48 WBC 9.3 (4.3-11.1) K/mcL Hgb 12.6 L (12.9-16.9) g/dL Hct 39.2 (37.5-50.1) % Plt Count 341 (140-400) K/mcL Neutrophils # 7.2 (1.6-8.9) K/mcL BMP 07/10/18 08:48 Sodium 138 Potassium 4.5 Chloride 103 Carbon Dioxide 29 BUN 12 Creatinine 0.83 Glucose 120 H Calcium 8.2 L Liver Function 07/10/18 Range/Units 08:48 Total Bilirubin 0.6 (0.3-1.0) mg/dL AST 21 (13-39) Units/L ALT 14 (7-52) Units/L Alkaline Phosphatase 84 (34-104) Units/L Albumin 2.6 L (3.5-5.7) g/dL - ABG Interpretation ABG results: PT/INR, D-dimer PT 15.3 Seconds (9.4-12.1) H 07/10/18 08:48 - Attending Attestation I examined this patient and my medical decision-making was reviewed with the Resident Physician Dr Oswald. I agree with the documented findings, disposition and treatment plan as described except to the extent set forth below. Mr Steven is being observed for multifocal pna refractory to outpt treatment awake, rn notes state pt had 400 ml black vomit overnight. discussed with pt, notes that staff was in to clean him up, i see no documentation that a physician was called and he does not recall seeing one. notes he had some nausea and sore stomach after dinner and overnight epigastric pain and then brown emesis with food particles. denies further episode. no melena. no lower abd pain but cont epigastric pain today with coughing and movement. no distension. denies fevers, chills, cp, presyncope. gen- awake, alert, appears stated age eyes- no conjunctival pallor cv- rrr, no murmurs appreciated, no le edema lungs- ctable, no wheezing, no crackles or rhonchi, normal resp effort on O2 NC abd- soft, + tender to palpation epigastric regin and ruq, nd, + bs, no guarding or rigidity skin- no pallor, rash or jaundice Multifocal Bibasilar pna, orgnaism not yet known MRSA neg- dc vanc -cont nebs, zosyn, attempt to ID organism Acute on Chronic resp failure as evidenced by initial o2 requirement greater t [place] home 2L NC Severe COPD Emphysema Hx -pna treatment as above, nebs, wean o2 as able Possible Upper GIB Brown emesis -hold asa and vte ppx sqh, scds, npo, iv ppi, gi consult, follow with dr aceves for hx colitis, check occult stool, Hgb up since yesterday and hemodynamically stable, cont to monitor pAfib hx- cont home BB, monitor lytes, hold asa as above further diagnoses and plan as noted by resident <Dave Oswaldnonigayle - Last Filed: 07/10/18 12:46> (2) Pneumonia Qualifiers: Pneumonia type: due to unspecified organism Laterality: right Lung location: lower lobe of lung Qualified Code(s): J18.1 - Lobar pneumonia, unspecified organism (3) Chronic respiratory failure Qualifiers: Respiratory failure complication: hypoxia Qualified Code(s): J96.11 - Chronic respiratory failure with hypoxia (6) AF (atrial fibrillation) Qualifiers: Atrial fibrillation type: chronic Qualified Code(s): I48.2 - Chronic atrial fibrillation (7) COPD (chronic obstructive pulmonary disease) Qualifiers: COPD type: chronic bronchitis Chronic bronchitis type: simple Qualified Code(s): J41.0 - Simple chronic bronchitis <Gisselle Kingston - Last Filed: 07/10/18 13:05> (1) COPD (chronic obstructive pulmonary disease) Qualifiers: COPD type: chronic bronchitis Chronic bronchitis type: simple Qualified Code(s): J41.0 - Simple chronic bronchitis (2) Hypertension Qualifiers: Hypertension type: essential hypertension Qualified Code(s): I10 - Essential (primary) hypertension (5) HLD (hyperlipidemia) Qualifiers: Hyperlipidemia type: pure hypercholesterolemia Qualified Code(s): E78.00 - Pure hypercholesterolemia, unspecified; E78.0 - Pure hypercholesterolemia (7) AF (atrial fibrillation) Qualifiers: Atrial fibrillation type: chronic Qualified Code(s): I48.2 - Chronic atrial fibrillation (8) Depression Qualifiers: Depression Type: unspecified Qualified Code(s): F32.9 - Major depressive disorder, single episode, unspecified
[2018-07-10 13:20] LABS: Hematocrit 37.6 % (37.5-50.1); Hemoglobin 12.1 g/dL (12.9-16.9)
[2018-07-11] MEDS: Ipratropium/Albuterol Neb 3 ML IH SCH (00:11)
[2018-07-11] MEDS: Piperacillin/Tazobactam 3.375 GM in 0.9 % Sodium Chloride Mini Bag 100 ML IVPB SCH ×3 (02:18→17:35)
[2018-07-11] MEDS: Pantoprazole 40 MG VIAL IVP SCH ×2 (06:21→17:35)
--- NOTE | 2018-07-11 07:33 | Internal Med Progress Note ---
<Dipesh Wood S - Last Filed: 07/11/18 11:43> Hospitalist Progress Note - Encounter Date of Encounter: 07/11/18 Time of Encounter: 09:02 - Subjective Interval History: Pt seen at bedside. He is without acute concern or complaint. No chest pain, N/V/D. Pt does have some abdominal pain. No acute overnight events. - Exam Vitals: Temp Pulse Resp BP Pulse Ox 98.3 F 66 17 120/67 98 07/11/18 03:34 07/11/18 03:34 07/11/18 03:34 07/11/18 03:34 07/11/18 03:34 Exam: General: pleasant, without distress Cardiovascualr: Regular rate and rhythm with no murmur, absent gallops or rubs, absent pedal edema, radial pulses 2 out of 4 Lungs: Clear to auscultation bilaterally, not in respiratory distress Abdomen: Soft epigastric tenderness nondistended positive bowel sounds, Skin: warm and dry, absent rash, absent open wounds and nodules MSK: absent clubbing, cyanosis, joints without swelling Neuro: Cranial nerves II through XII intact, UE and LE sensation equal bilaterally, UE and LEstrength 4/5, alert oriented 3, Psych: good insight and judgment - Assessment and Plan (1) Upper GI bleed Current Visit: Yes Status: Acute Assessment and Plan: Pt reported to have 4mL black vomiting overnight - hemoglobin 13.2 on admission, has since decreased to 12.6 ---> 12.1 - does have a hx of Ulcerative colitis, diagnosed in Mar 2018 and given budesonide by GI - followed by GI as an outpatient Plan: - GI consulted, awaiting recommendations - IV protonix 40 mg BID - continue to monitor H&H - FEN: NPO - dispo: PTOT consulted, GI consulted, ?scopes today to eval for GIB (2) Pneumonia Current Visit: Yes Status: Acute Assessment and Plan: Pt admitted for failure of outpatient PNA therapy with doxycycline - on chronic home 2 L oxygen, at baseline oxygen level XR chest on admission showed bibasilar lung infilrates, right > left - mass in right midlung field, spiculated in appearance - emphysema - pt has had workup/biopsy of the mass in [place] and was found to be negative for malignancy Sputum cx 07/08 preliminary - gram negative coccobacilli; awaiting sensitivities Urine antigens negative Negative influenza swab on 06/27 Plan: - blood cx pending - pt currently on zosyn day will de-escalate pending sensitivities - MRSA swab negative, vancomycin d/c (3) COPD (chronic obstructive pulmonary disease) Current Visit: Yes Status: Chronic Assessment and Plan: NOT in acute exacerbation. Continue home medications. Continue home oxygen. (4) Hypertension Current Visit: No Status: Chronic Assessment and Plan: Chronic. Continue home medications. (5) DVT prophylaxis Current Visit: No Status: Chronic Assessment and Plan: scd (6) AF (atrial fibrillation) Current Visit: Yes Status: Chronic (7) Chronic respiratory failure Current Visit: No Status: Chronic Assessment and Plan: c/w 2L baseline oxygen. Secondary to COPD. (8) Inflammatory bowel disease Current Visit: Yes Status: Acute Assessment and Plan: Colonoscopy in Mar 2018 showed signs of UC - continue budesinide - GI consulted (9) History of CVA (cerebrovascular accident) Current Visit: No Status: Chronic (10) Lung nodule Current Visit: No Status: Chronic Assessment and Plan: See above for PNA. (11) Physical deconditioning Current Visit: No Status: Chronic Assessment and Plan: PTOT consulted. - Time Spent with Patient Total time spent is greater than 50% in coordination of care (as documented) at patient's floor/unit and/or counseling patient: less than 15 minutes Plan of Care Discussed with: patient Internal Medicine: Result - Labs CBC & Chem 7: 07/11/18 09:13 07/11/18 09:13 Labs: Short CBC 07/10/18 07/10/18 Range/Units 08:48 13:07 WBC 9.3 (4.3-11.1) K/mcL Hgb 12.6 L 12.1 L (12.9-16.9) g/dL Hct 39.2 37.6 (37.5-50.1) % Plt Count 341 (140-400) K/mcL Neutrophils # 7.2 (1.6-8.9) K/mcL BMP 07/10/18 08:48 Sodium 138 Potassium 4.5 Chloride 103 Carbon Dioxide 29 BUN 12 Creatinine 0.83 Glucose 120 H Calcium 8.2 L Liver Function 07/10/18 Range/Units 08:48 Total Bilirubin 0.6 (0.3-1.0) mg/dL AST 21 (13-39) Units/L ALT 14 (7-52) Units/L Alkaline Phosphatase 84 (34-104) Units/L Albumin 2.6 L (3.5-5.7) g/dL - ABG Interpretation ABG results: PT/INR, D-dimer PT 15.3 Seconds (9.4-12.1) H 07/10/18 08:48 Consult Discharge Plan - Plan Referrals: Flex De La Garza MD [Primary Care Provider] - <Gisselle Kingston - Last Filed: 07/11/18 15:15> Hospitalist Progress Note - Encounter Date of Encounter: 07/11/18 - Exam Vitals: Temp Pulse Resp BP Pulse Ox 98.4 F 69 20 109/70 93 07/11/18 15:09 07/11/18 15:09 07/11/18 15:09 07/11/18 11:17 07/11/18 15:09 - Assessment and Plan (1) COPD (chronic obstructive pulmonary disease) Current Visit: Yes Status: Chronic (2) Hypertension Current Visit: No Status: Chronic (3) DVT prophylaxis Current Visit: No Status: Chronic (4) HCAP (healthcare-associated pneumonia) Current Visit: Yes Status: Acute (5) HLD (hyperlipidemia) Current Visit: No Status: Chronic (6) Generalized weakness Current Visit: No Status: Chronic (7) AF (atrial fibrillation) Current Visit: Yes Status: Chronic (8) Depression Current Visit: Yes Status: Chronic - Time Spent with Patient Total time spent is greater than 50% in coordination of care (as documented) at patient's floor/unit and/or counseling patient: Internal Medicine: Result - Labs CBC & Chem 7: 07/11/18 09:13 07/11/18 09:13 Labs: Short CBC 07/11/18 Range/Units 09:13 WBC 7.5 (4.3-11.1) K/mcL Hgb 12.8 L (12.9-16.9) g/dL Hct 41.9 (37.5-50.1) % Plt Count 354 (140-400) K/mcL Neutrophils # 5.6 (1.6-8.9) K/mcL BMP 07/11/18 09:13 Sodium 135 L Potassium 4.3 Chloride 101 Carbon Dioxide 29 BUN 8 Creatinine 0.92 Glucose 116 H Calcium 8.3 L - ABG Interpretation ABG results: PT/INR, D-dimer PT 15.3 Seconds (9.4-12.1) H 07/10/18 08:48 - Attending Attestation I examined this patient and my medical decision-making was reviewed with the Resident Physician Dr Wood. I agree with the documented findings, disposition and treatment plan as described except to the extent set forth below. Mr Steven is being observed for multifocal pna refractory to outpt treatment He had epsiode of dark emesis concerning for gib awake, pleasant, no further emesis, cont bl lower rib and epigastric pain, cough improving, no sob gen- awake, alert, appears stated age cv- rrr, no murmurs appreciated, no le edema lungs- ctabl, no wheezing, no crackles or rhonchi, normal resp effort on O2 NC abd- soft, non tender, non distended, + bs, no guarding or rigidity skin- no pallor, rash or jaundice Multifocal Bibasilar pna, orgnaism not yet known prelim gn coccobacilli MRSA neg- dc vanc -cont nebs, zosyn,follow cxs Acute on Chronic resp failure as evidenced by initial o2 requirement greater than home 2L NC Severe COPD Emphysema Hx -pna treatment as above, nebs, wean o2 as able Possible Upper GIB Brown emesis -hold asa and vte ppx sqh, scds, iv ppi, gi consulted and eval pending, follow with dr aceves for hx colitis, Hgb stable pAfib hx- cont home BB, monitor lytes, hold asa as above further diagnoses and plan as noted by resident <Dipesh Wood S - Last Filed: 07/11/18 11:43> (2) Pneumonia Qualifiers: Pneumonia type: due to unspecified organism (3) COPD (chronic obstructive pulmonary disease) Qualifiers: COPD type: chronic bronchitis Chronic bronchitis type: simple Qualified Code(s): J41.0 - Simple chronic bronchitis (4) Hypertension Qualifiers: Hypertension type: essential hypertension Qualified Code(s): I10 - Essential (primary) hypertension (6) AF (atrial fibrillation) Qualifiers: Atrial fibrillation type: chronic Qualified Code(s): I48.2 - Chronic atrial fibrillation (7) Chronic respiratory failure Qualifiers: Respiratory failure complication: hypoxia Qualified Code(s): J96.11 - Chronic respiratory failure with hypoxia <Gisselle Kingston - Last Filed: 07/11/18 15:15> (1) COPD (chronic obstructive pulmonary disease) Qualifiers: COPD type: chronic bronchitis Chronic bronchitis type: simple Qualified Code(s): J41.0 - Simple chronic bronchitis (2) Hypertension Qualifiers: Hypertension type: essential hypertension Qualified Code(s): I10 - Essential (primary) hypertension (5) HLD (hyperlipidemia) Qualifiers: Hyperlipidemia type: pure hypercholesterolemia Qualified Code(s): E78.00 - Pure hypercholesterolemia, unspecified; E78.0 - Pure hypercholesterolemia (7) AF (atrial fibrillation) Qualifiers: Atrial fibrillation type: chronic Qualified Code(s): I48.2 - Chronic atrial fibrillation (8) Depression Qualifiers: Depression Type: unspecified Qualified Code(s): F32.9 - Major depressive disorder, single episode, unspecified
[2018-07-11] MEDS: Ipratropium/Albuterol Neb 3 ML IH PRN (08:00)
[2018-07-11] MEDS: Tiotropium 18 MCG inhalation IH SCH (08:00)
[2018-07-11] MEDS: Primidone 50 MG TABLET PO SCH ×2 (08:57→21:24)
[2018-07-11] MEDS: (Breo Ellipta 100-25 Mcg Inh) PO SCH (08:58)
[2018-07-11] MEDS: (Roflumilast [Daliresp] 500 MCG) PO SCH (08:58)
[2018-07-11] MEDS: BUDESONIDE 6 MG PO SCH (08:58)
[2018-07-11 09:34] LABS: Basophils % 0.5 %; Eosinophils # 0.2 K/mcL (0.0-0.6); Eosinophils % 2.4 %; Hematocrit 41.9 % (37.5-50.1); Hemoglobin 12.8 g/dL (12.9-16.9); Immature Granulocytes % 0.3 % (0-4); Lymphocytes % 12.7 %; Mean Corpuscular HGB Conc 30.5 g/dL (31.6-35.5); Mean Corpuscular Hemoglobin 29.1 pg (28.0-33.3); Mean Corpuscular Volume 95.2 fL (83.0-100.0); Mean Platelet Volume 9.7 fL (9.4-12.4); Monocytes # 0.7 K/mcL (0.0-1.3); Monocytes % 9.1 %; Neutrophils # 5.6 K/mcL (1.6-8.9); Platelet Count 354 K/mcL (140-400); Red Cell Distribution Width 13.1 % (11.5-14.5)
[2018-07-11 09:55] LABS: BUN/Creatinine Ratio 9 (6-26); Blood Urea Nitrogen 8 mg/dL (8-23); Calcium 8.3 mg/dL (8.6-10.3); Carbon Dioxide 29 mEq/L (23-29); Chloride 101 mEq/L (98-107); Glucose 116 mg/dL (70-105); Osmolality,Calculated 279 (280-300); Potassium 4.3 mEq/L (3.5-5.1); Sodium 135 mEq/L (136-145); eGFR For Non-African Americans > 60 (> 60)
--- NOTE | 2018-07-11 13:23 | Anesthesia Evaluation PreOp ---
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: CVA (2017 with bilat LE weakness, anxiety) Other Medical History: Hepatic (Hep C), Renal (sones) Anesthesia History: No Prior Anesthetic Complications, Past Anesthesia (tonsils, testicle, EBUS, c-scope, USE) Alcohol Use: none Drug use: none Medications and Allergies Aspirin 81 mg PO DAILY #30 tab.chew 05/20/16 [Rx] Acetaminophen [Tylenol] 500 mg PO Q6H PRN 08/26/16 [History] Primidone [Mysoline] 50 mg PO BID 08/26/16 [History] Theophylline Anhydrous [Curt-24] 100 mg PO DAILY 10/04/16 [History] Roflumilast [Daliresp] 500 mcg PO DAILY 11/02/16 [History] Buspirone HCl [Buspar] 15 mg PO BID 02/28/17 [History] GuaiFENesin ER [Mucinex] 600 mg PO Q12H PRN 02/28/17 [History] Calcium Carbonate [Calcium] 600 mg PO BIDWM 05/27/17 [History] Lovastatin 40 mg PO HS 05/27/17 [History] Sertraline [Zoloft] 50 mg PO DAILY 05/27/17 [History] Tiotropium [place] [Spiriva Respimat] 2 puff IH DAILY 05/27/17 [History] Metoprolol [Lopressor] 25 mg PO BID 06/06/17 [History] Omeprazole [PriLOSEC] 20 mg PO DAILY 09/02/17 [History] Simethicone [Gas Relief] 180 mg PO Q4H PRN 09/02/17 [History] GuaiFENesin Liq [Robitussin Liq] 200 mg PO Q6HR PRN 12/16/17 [History] Tramadol HCl [Ultram] 50 - 100 mg PO QID PRN 12/16/17 [History] HYDROcodone/Acet 5/325 mg [[place] 5-325 mg] 1 tab PO Q6H PRN 01/10/18 [History] Ipratropium/Albuterol Neb [Duoneb] 3 ml IH Q4HR PRN 01/10/18 [History] Albuterol Sulfate [Proair Hfa] 2 puff PO Q4H PRN 04/03/18 [History] Diphenoxylate/Atropine [Lomotil 2.5 mg/0.025 mg] 2 each PO QID PRN 04/03/18 [History] Potassium Chloride [K-Tab ER] 20 meq PO BID 04/03/18 [History] Alendronate Sodium/Vitamin D3 [Fosamax Plus D 70 mg-2,800 Iu] 1 tab PO WE 07/08/18 [History] Budesonide [Entocort EC] 6 mg PO DAILY 07/08/18 [History] Cholestyramine (with Sugar) [Cholestyramine Bulk Powder] 1 packet PO QID PRN 07/08/18 [History] Fluticasone/Vilanterol [Breo Ellipta 100-25 Mcg INH] 1 puff PO DAILY 07/08/18 [History] Allergy/AdvReac Type Severity Reaction Status Date / Time azithromycin [From Zithromax] AdvReac See Verified 07/08/18 16:55 Comments hydrochlorothiazide AdvReac Difficulty Verified 07/08/18 16:55 Breathing ibuprofen [From Motrin] AdvReac Gastrointestinal Verified 07/08/18 16:55 Upset levofloxacin [From Levaquin] AdvReac See Verified 07/08/18 16:55 Comments - Meds/Allergy Pre-op Review Medications Reviewed: Yes Allergies Reviewed: Yes Beta Blockers on Current Med List: Yes If Beta Blockers taken, Date/Time (Last Dose taken): today 856 Anesthesia Results - Labs 07/11/18 09:13 07/11/18 09:13 - Imaging EKG: report reviewed (Sinus rhythm Atrial premature complex Low voltage, precordial leads) Anesthesia Exam Selected Entries 07/11/18 11:17 Temperature 97.7 F Pulse Rate 96 Respiratory Rate 17 Blood Pressure 109/70 O2 Sat by Pulse Oximetry 98 Oxygen Delivery Method Room Air Weight: 80kg NPO (# of Hours): 8 - HEENT Pupil (Motor): EOMI Mallampati: II Teeth: Edentulous Oral Opening: Greater than 3 - COFFEE ATTENDANT LOC: Oriented COFFEE ATTENDANT Motor: Normal RUE, Normal LUE, Normal Face, Deficit RLE, Deficit LLE COFFEE ATTENDANT Sensory: Normal: RUE, LUE, RLE, LLE, Face - Cardiac Rhythm: Regular Murmur: None - Pulmonary Breath Sounds: bilateral Clear (decreased) Anesthesia Assess/Plan ASA Score: 4 Level of consciousness: Cooperative, Oriented Anesthetic Plan: MAC Monitoring Plan: Standard Monitors Recovery Plan: Other (agrees to MAC)
[2018-07-11] MEDS ORDERED: Lidocaine -MPF 2% 2 ML VIAL ONE (14:33)
[2018-07-11] MEDS ORDERED: *HR* Propofol 200 MG/20 ML VIAL IVP ONE (14:33)
--- NOTE | 2018-07-11 15:39 | Anesthesia Evaluation Post Op ---
Date of Encounter: 07/11/18 Time of Encounter: 15:34 - Vital Signs Vital Signs: 89/52, HR 63, SpO2 99%, RR 16 - Lungs Lungs: Clear Ascult./Percussion - Airway Airway: Non-obstructed - Cardiovascular Regular Rate - Mental Status Mental Status: Alert & Oriented, Answers Appropriately - Pain Pain Scale: 0 Pain Scale used: Numeric (1 - 10) - Nausea Vomiting Nausea Vomiting: Not Present - Hydration Hydration: NPO, Has not voided - Discharge PostOp Status: Transfer Patient to floor
--- NOTE | 2018-07-11 15:54 | Gastroenterology Consult Note ---
<Vikash Rodriguez Nathalia - Last Filed: 07/11/18 15:52> Date of Encounter: 07/11/18 Time of Encounter: 12:25 - Assessment and plan (1) Upper GI bleed Current Visit: Yes Status: Acute Assessment and plan: Patient with 400 ml black emesis overnight. Continue PPI. Continue to monitor CBC. Plan for EGD today to r/o esophagitis, gastritis, duodenitis, PUD, MW tear, or AVM. Patient educated regarding lifestyle modifications including: (1) avoidance of foods that may precipitate reflux (eg, coffee, alcohol, chocolate, fatty foods). (2) avoidance of acidic foods that may precipitate heartburn (eg, citrus, carbonated drinks, spicy foods). (3) adoption of behaviors that may reduce esophageal acid exposure (see weight loss, smoking cessation, raising the head of the bed, and avoiding recumbency for 2-3 hours after meals). (2) Inflammatory bowel disease Current Visit: Yes Status: Acute Assessment and plan: Ulcerative colitis, continue Entocort. - Time Spent With Patient Total time spent is greater than 50% in coordination of care (as documented) at patient's floor/unit and/or counseling patient: GI History of Present Illness - Data of Consult Patient: known to practice within the last 3 years Consult date: 07/11/18 Requesting Physician: Gisselle Kingston - Consult Narrative Reason for consult: GI Bleed History of present illness: Mr. Steven is a 67 year old male with PMHx of fib, COPD, CVA, DVT, HLD, HTN, ulcerative colitis on Entocort who presented to the ED with one day of SOB and productive cough. He complained of abdominal pain with coughing. We were consulted to evaluate upper GI bleed. Overnight he had 400 ml black emesis. Hgb 13.2 on admission and this AM Hgb 12.8. He continues to complain of epigastric pain with coughing. Procedures: Colonoscopy 04/11/2018 Dr. Muro: Ulcerative colitis, diverticulosis, 10 mm adenoma, two 6 mm tubular adenoma. NSAIDs: ASA Anticoagulation: None Past Med Surg Social Fam HX - Past Medical History Medical history: atrial fibrillation, COPD, CVA, DVT, hyperlipidemia, hy pertension, kidney stones Additional medical history: Emphysema Psychiatric history: anxiety, depression - Past Surgical History Surgical History: tonsilectomy, other Additional surgical history: Herniated testical repair 1961, teeth removed - Social History Smoking Status: Former smoker Smokeless Tobacco Status: No Alcohol use: none Drug use: none - Family History Brother Family Member Ethnicity: Non- Living Status: Father Adopted: No Family Member Ethnicity: Non- Living Status: Hx Family Cardiac Disorders: No Hx Family Respiratory Disorders: Yes Hx Family Cancer: No Hx Family GI Disorders: No Hx Family Endocrine Disorder: No Hx Family Neuromuscular Disorders: No Hx Family Neurologic Disorders: No Hx Family HEENT Disorders: No Hx Family Autoimmune Disorders: No Mother Adopted: No Family Member Ethnicity: Non- Living Status: Hx Family Cardiac Disorders: No Hx Family Respiratory Disorders: Yes Hx Family Cancer: Yes (lung) Hx Family GI Disorders: No Hx Family Endocrine Disorder: No Hx Family Neuromuscular Disorders: No Hx Family Neurologic Disorders: No Hx Family HEENT Disorders: No Hx Family Autoimmune Disorders: No - Gastrointestinal Gastrointestinal: Present: as per HPI - Constitutional Constitutional: as per HPI - EENT Eyes: as per HPI Ears: Present: as per HPI Nose, mouth and throat: Present: as per HPI - Cardiovascular Cardiovascular ROS: Present: as per HPI - Respiratory Respiratory IM: Present: as per HPI - Genitourinary Genitourinary: Absent: change in color, Urinary frequency - Neurological ROS Neurological GI: Present: as per HPI - Hematologic/Lymphatic Hematologic/Lymphatic pediatric: Present: as per HPI - Musculoskeletal Musculoskeletal ROS GI: Present: as per HPI - Integumentary Integumentary GI: Present: as per HPI - Psychiatric ROS Psychiatric GI: Present: as per HPI - Endocrine Endocrine IM: Present: as per HPI - Constitutional Vitals: Temp Pulse Resp BP Pulse Ox 98.4 F 67 14 119/78 94 07/11/18 15:50 07/11/18 15:50 07/11/18 15:50 07/11/18 15:50 07/11/18 15:50 General appearance: Present: cooperative, A&O X 3, no acute distress, answers questions appropriately - Head Head exam: Present: atraumatic, normocephalic - Eye Eye exam: Present: normal appearance, sclera anicteric - ENT ENT exam: Present: mucous membranes moist - Neck Neck exam general surgery: Present: normal inspection, trachea midline - Respiratory Respiratory exam: Present: CTAB. Absent: rales, rhonchi - Cardiovascular Cardiovascular exam: Present: RRR, +S1, +S2 - GI/Abdominal GI/Abdominal exam: Present: soft, tenderness (epigastric), no peritoneal signs. Absent: distended, firm, guarding - Rectal Rectal exam: Present: deferred - Extremities Exam Extremities exam: Present: warm - Neurological Exam Neurological exam: Present: no focal deficits - Psychiatric Psychiatric exam: Present: normal affect, normal mood - Skin Skin exam: Present: dry, intact, normal color, warm Results - Labs CBC & Chem 7: 07/11/18 09:13 07/11/18 09:13 Labs: Last Result Calcium 8.3 mg/dL (8.6-10.3) L 07/11/18 09:13 Gastric Occult Blood Positive (Negative) A 07/10/18 08:20 Stool Occult Blood Negative (Negative) 07/10/18 14:21 Entire Visit Hgb 12.8 g/dL (12.9-16.9) L 07/11/18 09:13 Hct 41.9 % (37.5-50.1) 07/11/18 09:13 PT 15.3 Seconds (9.4-12.1) H 07/10/18 08:48 Total Bilirubin 0.6 mg/dL (0.3-1.0) 07/10/18 08:48 AST 21 Units/L (13-39) 07/10/18 08:48 ALT 14 Units/L (7-52) 07/10/18 08:48 - ABG ABG results: PT/INR, D-dimer PT 15.3 Seconds (9.4-12.1) H 07/10/18 08:48 Consult Discharge Plan - Plan Referrals: Flex De La Garza MD [Primary Care Provider] - <Chris Munroe - Last Filed: 07/11/18 16:14> Date of Encounter: 07/11/18 - Time Spent With Patient Total time spent is greater than 50% in coordination of care (as documented) at patient's floor/unit and/or counseling patient: GI History of Present Illness - Data of Consult Requesting Physician: Gisselle Kingston - Consult Narrative History of present illness: Mr. Steven is a 67 year old male - Constitutional Vitals: Temp Pulse Resp BP Pulse Ox 98.4 F 67 14 119/78 94 07/11/18 15:50 07/11/18 15:50 07/11/18 15:50 07/11/18 15:50 07/11/18 15:50 Results - Labs CBC & Chem 7: 07/11/18 09:13 07/11/18 09:13 Labs: Last Result Calcium 8.3 mg/dL (8.6-10.3) L 07/11/18 09:13 Gastric Occult Blood Positive (Negative) A 07/10/18 08:20 Stool Occult Blood Negative (Negative) 07/10/18 14:21 Entire Visit Hgb 12.8 g/dL (12.9-16.9) L 07/11/18 09:13 Hct 41.9 % (37.5-50.1) 07/11/18 09:13 PT 15.3 Seconds (9.4-12.1) H 07/10/18 08:48 Total Bilirubin 0.6 mg/dL (0.3-1.0) 07/10/18 08:48 AST 21 Units/L (13-39) 07/10/18 08:48 ALT 14 Units/L (7-52) 07/10/18 08:48 - ABG ABG results: PT/INR, D-dimer PT 15.3 Seconds (9.4-12.1) H 07/10/18 08:48 - Attending Attestation Mr Nova presents with coffee ground emesis. He has severe COPD. Has some myofascial pain in his right chest secondary to coughing spells.Takes a baby ASA daily. Recommend EGD. Agree with the differential although given his age group one has to also consider malignancy. Further recommendations post EGD I have personally performed a face to face evaluation on this patient. I have reviewed and agree with the care plan. History and Exam by me shows:
[2018-07-12] MEDS: Piperacillin/Tazobactam 3.375 GM in 0.9 % Sodium Chloride Mini Bag 100 ML IVPB SCH ×2 (01:24→08:41)
[2018-07-12] MEDS: Pantoprazole 40 MG VIAL IVP SCH (05:45)
[2018-07-12] MEDS: Ipratropium/Albuterol Neb 3 ML IH PRN (06:09)
--- NOTE | 2018-07-12 08:13 | Discharge Summary ---
<Dipesh Wood S - Last Filed: 07/12/18 15:38> - NOTES TO OUTPATIENT PROVIDER Notes to Outpatient Provider: Complete Amoxicillin x 3 days. F/U with PCP in 1 week. Holding ASA as per GI recommendations, will allow PCP to decide to restart vs hold. Orders not resulted at time of discharge: Pending orders 07/08/18 10:04 Culture,Blood [BC] Stat 07/08/18 15:50 Sputum Culture [Culture,Sputum with Gram Stain] [RM] Stat 07/11/18 15:26 Cytology [PTH] Routine Date of Encounter: 07/12/18 Time of Encounter: 11:35 - Discharge Diagnosis (1) Upper GI bleed Priority: Secondary Status: Acute (2) Pneumonia Priority: Primary Status: Acute Qualifiers: Pneumonia type: due to unspecified organism Laterality: unspecified laterality Lung location: unspecified part of lung Qualified Code(s): J18.9 - Pneumonia, unspecified organism (3) COPD (chronic obstructive pulmonary disease) Priority: Secondary Status: Chronic Qualifiers: COPD type: chronic bronchitis Chronic bronchitis type: simple Qualified Code(s): J41.0 - Simple chronic bronchitis (4) Hypertension Priority: Secondary Status: Chronic Qualifiers: Hypertension type: essential hypertension Qualified Code(s): I10 - Essential (primary) hypertension (5) DVT prophylaxis Priority: Secondary Status: Chronic (6) AF (atrial fibrillation) Priority: Secondary Status: Chronic Qualifiers: Atrial fibrillation type: chronic Qualified Code(s): I48.2 - Chronic atrial fibrillation (7) Chronic respiratory failure Priority: Secondary Status: Chronic Qualifiers: Respiratory failure complication: hypoxia Qualified Code(s): J96.11 - Chronic respiratory failure with hypoxia (8) Inflammatory bowel disease Priority: Secondary Status: Acute (9) History of CVA (cerebrovascular accident) Priority: Secondary Status: Chronic (10) Lung nodule Priority: Secondary Status: Chronic (11) Physical deconditioning Priority: Secondary Status: Chronic Hospital course: Mr. Steven is a 67 year old male PMH of kidney stones, COPD/emphysema on 2 litters of O2, HTN, Paroxismal A.fib and HTN. Patient presented to the ED due to shortness of breath and productive cough. He was seen as an outpatient for PNA and given doxycycline and continued to have shortness of breath and a persistent productive cough of yellowish/clear sputum and a subjective fever. He had continued weakness. Reported poor PO intake and has not been able to have a full meal for the past week. Denies chest pain, reports abdominal discomfort mainly when he coughs. Denies urinary symptoms. While in the hospital he had an episode of 4mL of black vomiting. Hemoglobin dropped from 13.2 to 12.1. He does have a hx of Ulcerative colitis diagnosed in March 2018 and is followed by GI as an outpatient. The pt was scoepd on 07/11 and was found to have gastritis, nonbleeding esophageal ulcer, erosive duodenopathy w/o bleeding secondary to NSAID gastropathy. There was benign esopahgeal stricture seen. Biopsies were taken and are still pending. He was started on vancomycin and zosyn while in the hospital. Vanc was d/c after MRSA negative. Zosyn x 4 days and he will be discharged with 3 more days of amoxicillin. Blood cx ngtd. Sputum cx positive for haemophilus parahaemolyticus. Legionella/strep pneumo negative antigens. The pt is stable for discharge and is to return to [facility]. We will hold aspirin and allow outpatient PCP to decide whether or not to start aspirin again, GI recommending he have non NSAID antiplatelet added. Will also be sent home with PPI and carafate as per GI. Discharge discussed with: patient Time spent discussing smoking cessation with patient: 3 to 10 minutes - Time Spent with Patient Total time spent providing and/or coordinating discharge services: Time spent: Greater than 30 minutes - Discharge Medications Prescriptions: New Amoxicillin [Amoxil] 500 mg PO TID 3 Days #9 capsule Pantoprazole Sodium [Protonix] 40 mg PO BID 30 Days #60 tablet. Sucralfate [Carafate] 1 gm PO QIDAC 30 Days #180 tablet Continue Primidone [Mysoline] 50 mg PO BID Acetaminophen [Tylenol] 500 mg PO Q6H PRN PRN Reason: Pain Theophylline Anhydrous [Curt-24] 100 mg PO DAILY Roflumilast [Daliresp] 500 mcg PO DAILY GuaiFENesin ER [Mucinex] 600 mg PO Q12H PRN PRN Reason: Cough/Congestion Buspirone HCl [Buspar] 15 mg PO BID Sertraline [Zoloft] 50 mg PO DAILY Tiotropium [place] [Spiriva Respimat] 2 puff IH DAILY Lovastatin 40 mg PO HS Calcium Carbonate [Calcium] 600 mg PO BIDWM Metoprolol [Lopressor] 25 mg PO BID Omeprazole [PriLOSEC] 20 mg PO DAILY Simethicone [Gas Relief] 180 mg PO Q4H PRN PRN Reason: FLATULENCE GuaiFENesin Liq [Robitussin Liq] 200 mg PO Q6HR PRN PRN Reason: Cough Tramadol HCl [Ultram] 50 - 100 mg PO QID PRN PRN Reason: Mild To Moderate Pain Ipratropium/Albuterol Neb [Duoneb] 3 ml IH Q4HR PRN PRN Reason: Dyspnea Potassium Chloride [K-Tab ER] 20 meq PO BID Albuterol Sulfate [Proair Hfa] 2 puff PO Q4H PRN PRN Reason: COPD Diphenoxylate/Atropine [Lomotil 2.5 mg/0.025 mg] 2 each PO QID PRN PRN Reason: Diarrhea Alendronate Sodium/Vitamin D3 [Fosamax Plus D 70 mg-2,800 Iu] 1 tab PO WE Budesonide [Entocort EC] 6 mg PO DAILY Cholestyramine (with Sugar) [Cholestyramine Bulk Powder] 1 packet PO QID PRN PRN Reason: Diarrhea Fluticasone/Vilanterol [Breo Ellipta 100-25 Mcg INH] 1 puff PO DAILY HYDROcodone/Acet 5/325 mg [[place] 5-325 mg] 1 tab PO Q6H PRN 1 Days #4 tablet PRN Reason: Pain Discontinued Aspirin 81 mg PO DAILY #30 tab.chew Home Medications: Acetaminophen [Tylenol] 500 mg PO Q6H PRN 08/26/16 [History] Primidone [Mysoline] 50 mg PO BID 08/26/16 [History] Theophylline Anhydrous [Curt-24] 100 mg PO DAILY 10/04/16 [History] Roflumilast [Daliresp] 500 mcg PO DAILY 11/02/16 [History] Buspirone HCl [Buspar] 15 mg PO BID 02/28/17 [History] GuaiFENesin ER [Mucinex] 600 mg PO Q12H PRN 02/28/17 [History] Calcium Carbonate [Calcium] 600 mg PO BIDWM 05/27/17 [History] Lovastatin 40 mg PO HS 05/27/17 [History] Sertraline [Zoloft] 50 mg PO DAILY 05/27/17 [History] Tiotropium [place] [Spiriva Respimat] 2 puff IH DAILY 05/27/17 [History] Metoprolol [Lopressor] 25 mg PO BID 06/06/17 [History] Omeprazole [PriLOSEC] 20 mg PO DAILY 09/02/17 [History] Simethicone [Gas Relief] 180 mg PO Q4H PRN 09/02/17 [History] GuaiFENesin Liq [Robitussin Liq] 200 mg PO Q6HR PRN 12/16/17 [History] Tramadol HCl [Ultram] 50 - 100 mg PO QID PRN 12/16/17 [History] Ipratropium/Albuterol Neb [Duoneb] 3 ml IH Q4HR PRN 01/10/18 [History] Albuterol Sulfate [Proair Hfa] 2 puff PO Q4H PRN 04/03/18 [History] Diphenoxylate/Atropine [Lomotil 2.5 mg/0.025 mg] 2 each PO QID PRN 04/03/18 [History] Potassium Chloride [K-Tab ER] 20 meq PO BID 04/03/18 [History] Alendronate Sodium/Vitamin D3 [Fosamax Plus D 70 mg-2,800 Iu] 1 tab PO WE 07/08/18 [History] Budesonide [Entocort EC] 6 mg PO DAILY 07/08/18 [History] Cholestyramine (with Sugar) [Cholestyramine Bulk Powder] 1 packet PO QID PRN 07/08/18 [History] Fluticasone/Vilanterol [Breo Ellipta 100-25 Mcg INH] 1 puff PO DAILY 07/08/18 [History] Amoxicillin [Amoxil] 500 mg PO TID 3 Days #9 capsule 07/12/18 [Rx] HYDROcodone/Acet 5/325 mg [[place] 5-325 mg] 1 tab PO Q6H PRN 1 Days #4 tablet 07/12/18 [Rx] Pantoprazole Sodium [Protonix] 40 mg PO BID 30 Days #60 tablet. 07/12/18 [Rx] Sucralfate [Carafate] 1 gm PO QIDAC 30 Days #180 tablet 07/12/18 [Rx] Allergies/Adverse Reactions: Allergy/AdvReac Type Severity Reaction Status Date / Time azithromycin [From Zithromax] AdvReac See Verified 07/08/18 16:55 Comments hydrochlorothiazide AdvReac Difficulty Verified 07/08/18 16:55 Breathing ibuprofen [From Motrin] AdvReac Gastrointestinal Verified 07/08/18 16:55 Upset levofloxacin [From Levaquin] AdvReac See Verified 07/08/18 16:55 Comments Date of admission: 07/08/18 12:41 Primary care physician: Flex De La Garza MD Consults: 07/09/18 08:32 Consult to Physical Therapy [CONS] Routine Comment: Evaluate, develop and implement POC Reason for Consult: patient states he has not been able to ambulate, has been using a wheelchair. Does patient have active BEDREST order?: No Is patient medically & hemodynamically stable?: Yes Patient assessed for mobility or mobilized this visit?: Yes 07/09/18 08:36 OT [Consult to Occupational Therapy] [CONS] Routine Comment: Evaluate, develop and implement POC Reason for Consult: weakness, has been using a wheelchair instead of ambulating. Does patient have active BEDREST order?: No Is patient medically & hemodynamically stable?: Yes Patient assessed for mobility or mobilized this visit?: Yes 07/10/18 10:38 Consult to Gastroenterology [CONS] Routine Consulting Provider: Gastroentertequila Hernandez Reason for Consult: GI bleed. Patient had black vomit last night. Call Completed: Yes 07/10/18 14:56 Consult to Nurse Navigator [CONS] Routine Comment: pneumonia 07/10/18 15:24 Consult to Deputy Felony Clerk [CONS] Routine Reason for SW Consult: correction signature Discharging clinician: Dipesh Wood Anticipated date of discharge: 07/12/18 - Constitutional Vitals: Temp Pulse Resp BP Pulse Ox 97.9 F 82 17 129/86 95 07/12/18 07:20 07/12/18 07:20 07/12/18 07:20 07/12/18 07:20 07/12/18 07:20 Exam: General: pleasant, without distress Cardiovascualr: Regular rate and rhythm with no murmur, absent gallops or rubs, absent pedal edema, radial pulses 2 out of 4 Lungs: Clear to auscultation bilaterally, not in respiratory distress Abdomen: Soft nontender nondistended positive bowel sounds, Skin: warm and dry, absent rash, absent open wounds and nodules MSK: absent clubbing, cyanosis, joints without swelling Neuro: Cranial nerves II through XII intact, UE and LE sensation equal bilaterally, UE and LEstrength 4/5, alert oriented 3, Psych: good insight and judgment - Patient Status Disposition: Transfer SNF Condition: Good Overall status at discharge: patient is progressing back to baseline - Discharge Instructions Follow Up With: Flex De La Garza MD [Primary Care Provider] - - Diet and Activity Activity: as per physical therapy, increase activity as tolerated Diet: other (cardiac) <Lucio Schaeffer - Last Filed: 07/12/18 17:20> Orders not resulted at time of discharge: Pending orders 07/08/18 10:04 Culture,Blood [BC] Stat 07/11/18 15:26 Cytology [PTH] Routine Date of Encounter: 07/12/18 - Discharge Diagnosis (1) COPD (chronic obstructive pulmonary disease) Status: Chronic Qualifiers: COPD type: chronic bronchitis Chronic bronchitis type: simple Qualified Code(s): J41.0 - Simple chronic bronchitis (2) Hypertension Status: Chronic Qualifiers: Hypertension type: essential hypertension Qualified Code(s): I10 - Essential (primary) hypertension (3) DVT prophylaxis Status: Chronic (4) HCAP (healthcare-associated pneumonia) Status: Acute (5) HLD (hyperlipidemia) Status: Chronic Qualifiers: Hyperlipidemia type: pure hypercholesterolemia Qualified Code(s): E78.00 - Pure hypercholesterolemia, unspecified; E78.0 - Pure hypercholesterolemia (6) Generalized weakness Status: Chronic (7) AF (atrial fibrillation) Status: Chronic Qualifiers: Atrial fibrillation type: chronic Qualified Code(s): I48.2 - Chronic atrial fibrillation (8) Depression Status: Chronic Qualifiers: Depression Type: unspecified Qualified Code(s): F32.9 - Major depressive disorder, single episode, unspecified Hospital course: Mr. Steven is a 67 year old male - Time Spent with Patient Total time spent providing and/or coordinating discharge services: Date of admission: 07/08/18 12:41 Primary care physician: Flex De La Garza MD Consults: 07/09/18 08:32 Consult to Physical Therapy [CONS] Routine Comment: Evaluate, develop and implement POC Reason for Consult: patient states he has not been able to ambulate, has been using a wheelchair. Does patient have active BEDREST order?: No Is patient medically & hemodynamically stable?: Yes Patient assessed for mobility or mobilized this visit?: Yes 07/09/18 08:36 OT [Consult to Occupational Therapy] [CONS] Routine Comment: Evaluate, develop and implement POC Reason for Consult: weakness, has been using a wheelchair instead of ambulating. Does patient have active BEDREST order?: No Is patient medically & hemodynamically stable?: Yes Patient assessed for mobility or mobilized this visit?: Yes 07/10/18 10:38 Consult to Gastroenterology [CONS] Routine Consulting Provider: Gastroenterology Mary Reason for Consult: GI bleed. Patient had black vomit last night. Call Completed: Yes 07/10/18 14:56 Consult to Nurse Navigator [CONS] Routine Comment: pneumonia 07/10/18 15:24 Consult to Deputy Felony Clerk [CONS] Routine Reason for SW Consult: intermediate teacher signature - Constitutional Vitals: Temp Pulse Resp BP Pulse Ox 98.0 F 74 15 104/72 97 07/12/18 11:40 07/12/18 11:40 07/12/18 11:40 07/12/18 11:40 07/12/18 11:40 - Attending Attestation I examined this patient and my medical decision-making was reviewed with the Resident Physician. I agree with the documented findings, disposition and treatment plan as described except to the extent set forth below. GI did recommend changing ASA to another antiplatelet therapy that is not NSAID, since EGD showed likely NSAID gastropathy. Will defer to primary care if he should be placed on antiplatelet therapy with recent bleed or not.
[2018-07-12] MEDS: Primidone 50 MG TABLET PO SCH (08:41)
[2018-07-12] MEDS: BUDESONIDE 6 MG PO SCH (08:42)
[2018-07-12] MEDS: (Breo Ellipta 100-25 Mcg Inh) PO SCH (08:42)
[2018-07-12] MEDS: (Roflumilast [Daliresp] 500 MCG) PO SCH (08:42)
--- NOTE | 2018-07-12 09:05 | Internal Med Progress Note ---
Hospitalist Progress Note - Encounter Date of Encounter: 07/12/18 Time of Encounter: 09:05 - Subjective Interval History: Pt seen at bedside. He states he still has abdominal pain and feels very week. He was informed about findings on EGD yesterday. Otherwise, w/o complaint. - Exam Vitals: Temp Pulse Resp BP Pulse Ox 97.9 F 82 17 129/86 95 07/12/18 07:20 07/12/18 07:20 07/12/18 07:20 07/12/18 07:20 07/12/18 07:20 Exam: General: pleasant, without distress Cardiovascualr: Regular rate and rhythm with no murmur, absent gallops or rubs, absent pedal edema, radial pulses 2 out of 4 Lungs: Clear to auscultation bilaterally, not in respiratory distress Abdomen: Soft epigastric tenderness nondistended positive bowel sounds, Skin: warm and dry, absent rash, absent open wounds and nodules MSK: absent clubbing, cyanosis, joints without swelling Neuro: Cranial nerves II through XII intact, UE and LE sensation equal bilaterally, UE and LEstrength 4/5, alert oriented 3, Psych: good insight and judgment - Assessment and Plan (1) Upper GI bleed Current Visit: Yes Status: Acute Assessment and Plan: Pt reported to have 4mL black vomiting overnight - hemoglobin 13.2 on admission, has since decreased to 12.6 ---> 12.1 - does have a hx of Ulcerative colitis, diagnosed in Mar 2018 and given budesonide by GI - followed by GI as an outpatient EGD report from 07/11: - non bleeding esophagea ulcer - benign esophageal stenosis - gastritis - erosive duodenopathy w/o bleeding 2/2 NSAID gastropathy Plan: - GI consulted EGD performed 07/11/18 start carafate QID biopsies pending - IV protonix 40 mg BID - continue to monitor H&H - FEN: NPO - dispo: PTOT consulted, d/c to SNF tomorrow (2) Pneumonia Current Visit: Yes Status: Acute Assessment and Plan: Pt admitted for failure of outpatient PNA therapy with doxycycline - on chronic home 2 L oxygen, at baseline oxygen level XR chest on admission showed bibasilar lung infilrates, right > left - mass in right midlung field, spiculated in appearance - emphysema - pt has had workup/biopsy of the mass in [place] and was found to be negative for malignancy Sputum cx 07/08 preliminary - gram negative coccobacilli H. parahaemolyticus, awaiting sensitivities Urine antigens negative Negative influenza swab on 06/27 Plan: - blood cx pending, ngtd - pt currently on zosyn day will de-escalate pending sensitivities - MRSA swab negative, vancomycin d/c (3) COPD (chronic obstructive pulmonary disease) Current Visit: Yes Status: Chronic Assessment and Plan: NOT in acute exacerbation. Continue home medications. Continue home oxygen. (4) Hypertension Current Visit: No Status: Chronic Assessment and Plan: chronic, con't home medications (5) DVT prophylaxis Current Visit: No Status: Chronic Assessment and Plan: scd (6) Chronic respiratory failure Current Visit: No Status: Chronic Assessment and Plan: c/w 2L baseline oxygen. Secondary to COPD. (7) Inflammatory bowel disease Current Visit: Yes Status: Acute Assessment and Plan: Colonoscopy in Mar 2018 showed signs of UC - continue budesinide - GI consulted (8) History of CVA (cerebrovascular accident) Current Visit: No Status: Chronic (9) Lung nodule Current Visit: No Status: Chronic Assessment and Plan: See above for PNA. (10) Physical deconditioning Current Visit: No Status: Chronic Assessment and Plan: PTOT consulted. DVT Prophylaxis: scd. - Time Spent with Patient Total time spent is greater than 50% in coordination of care (as documented) at patient's floor/unit and/or counseling patient: less than 15 minutes Plan of Care Discussed with: patient Internal Medicine: Result - Labs CBC & Chem 7: 07/11/18 09:13 07/11/18 09:13 Labs: Short CBC 07/11/18 Range/Units 09:13 WBC 7.5 (4.3-11.1) K/mcL Hgb 12.8 L (12.9-16.9) g/dL Hct 41.9 (37.5-50.1) % Plt Count 354 (140-400) K/mcL Neutrophils # 5.6 (1.6-8.9) K/mcL BMP 07/11/18 09:13 Sodium 135 L Potassium 4.3 Chloride 101 Carbon Dioxide 29 BUN 8 Creatinine 0.92 Glucose 116 H Calcium 8.3 L - ABG Interpretation ABG results: PT/INR, D-dimer PT 15.3 Seconds (9.4-12.1) H 07/10/18 08:48 Consult Discharge Plan - Plan Referrals: Flex De La Garza MD [Primary Care Provider] - (2) Pneumonia Qualifiers: Pneumonia type: due to unspecified organism (3) COPD (chronic obstructive pulmonary disease) Qualifiers: COPD type: chronic bronchitis Chronic bronchitis type: simple Qualified Code(s): J41.0 - Simple chronic bronchitis (4) Hypertension Qualifiers: Hypertension type: essential hypertension Qualified Code(s): I10 - Essential (primary) hypertension (6) Chronic respiratory failure Qualifiers: Respiratory failure complication: hypoxia Qualified Code(s): J96.11 - Chronic respiratory failure with hypoxia
[2018-07-12] MEDS: Tiotropium 18 MCG inhalation IH SCH (10:04)
[2018-07-12 11:47] VITALS: BP 104/72
--- NOTE | 2018-07-12 11:53 | Physician Discharge Referral ---
ExtendedCare Referral Info Transfer To: signature Provider in Charge after Transfer: PCP Institutional Level of Care: Skilled - Diagnosis (1) Upper GI bleed Priority: Secondary Status: Acute (2) Pneumonia Priority: Primary Status: Acute (3) COPD (chronic obstructive pulmonary disease) Priority: Secondary Status: Chronic (4) Hypertension Priority: Secondary Status: Chronic (5) DVT prophylaxis Priority: Secondary Status: Chronic (6) AF (atrial fibrillation) Priority: Secondary Status: Chronic (7) Chronic respiratory failure Priority: Secondary Status: Chronic (8) Inflammatory bowel disease Priority: Secondary Status: Acute (9) History of CVA (cerebrovascular accident) Priority: Secondary Status: Chronic (10) Lung nodule Priority: Secondary Status: Chronic (11) Physical deconditioning Priority: Secondary Status: Chronic Prognosis: Good Aware of Diagnosis: Patient Aware of Prognosis: Patient - Transfer Medications Prescriptions: Amoxicillin [Amoxil] 500 mg PO TID 3 Days #9 capsule Home Medications: Acetaminophen [Tylenol] 500 mg PO Q6H PRN 08/26/16 [History] Primidone [Mysoline] 50 mg PO BID 08/26/16 [History] Theophylline Anhydrous [Curt-24] 100 mg PO DAILY 10/04/16 [History] Roflumilast [Daliresp] 500 mcg PO DAILY 11/02/16 [History] Buspirone HCl [Buspar] 15 mg PO BID 02/28/17 [History] GuaiFENesin ER [Mucinex] 600 mg PO Q12H PRN 02/28/17 [History] Calcium Carbonate [Calcium] 600 mg PO BIDWM 05/27/17 [History] Lovastatin 40 mg PO HS 05/27/17 [History] Sertraline [Zoloft] 50 mg PO DAILY 05/27/17 [History] Tiotropium [place] [Spiriva Respimat] 2 puff IH DAILY 05/27/17 [History] Metoprolol [Lopressor] 25 mg PO BID 06/06/17 [History] Omeprazole [PriLOSEC] 20 mg PO DAILY 09/02/17 [History] Simethicone [Gas Relief] 180 mg PO Q4H PRN 09/02/17 [History] GuaiFENesin Liq [Robitussin Liq] 200 mg PO Q6HR PRN 12/16/17 [History] Tramadol HCl [Ultram] 50 - 100 mg PO QID PRN 12/16/17 [History] HYDROcodone/Acet 5/325 mg [[place] 5-325 mg] 1 tab PO Q6H PRN 01/10/18 [History] Ipratropium/Albuterol Neb [Duoneb] 3 ml IH Q4HR PRN 01/10/18 [History] Albuterol Sulfate [Proair Hfa] 2 puff PO Q4H PRN 04/03/18 [History] Diphenoxylate/Atropine [Lomotil 2.5 mg/0.025 mg] 2 each PO QID PRN 04/03/18 [History] Potassium Chloride [K-Tab ER] 20 meq PO BID 04/03/18 [History] Alendronate Sodium/Vitamin D3 [Fosamax Plus D 70 mg-2,800 Iu] 1 tab PO WE 07/08/18 [History] Budesonide [Entocort EC] 6 mg PO DAILY 07/08/18 [History] Cholestyramine (with Sugar) [Cholestyramine Bulk Powder] 1 packet PO QID PRN 07/08/18 [History] Fluticasone/Vilanterol [Breo Ellipta 100-25 Mcg INH] 1 puff PO DAILY 07/08/18 [History] Amoxicillin [Amoxil] 500 mg PO TID 3 Days #9 capsule 07/12/18 [Rx] Allergies/Adverse Reactions: Allergy/AdvReac Type Severity Reaction Status Date / Time azithromycin [From Zithromax] AdvReac See Verified 07/08/18 16:55 Comments hydrochlorothiazide AdvReac Difficulty Verified 07/08/18 16:55 Breathing ibuprofen [From Motrin] AdvReac Gastrointestinal Verified 07/08/18 16:55 Upset levofloxacin [From Levaquin] AdvReac See Verified 07/08/18 16:55 Comments - Respiratory Orders Oxygen / L per min (2) Smoking Cessation: Smoking cessation has been advised. For more information, call the [employer] Tobacco Quit Line at 8-024-EXSU-NOW. - Advance Directives Code Status: Full Code - Mobility Orders Chair, Ambulate - Rehabiliation Orders Rehab Potential: Fair Rehab Orders: ROM Exercises, Evaluation for Physical Therapy, Evaluation for Occupational Therapy - Diet Orders Cardiac CERTIFICATION: I certify that the transfer of the above named patient to an Extended Care Facility is necessary for the continuing treatment of the diagnosis listed. The above information is true and accurate reflection of patient's current condition. Confidential - Redisclosure prohibited without a patient's written consent.
--- NOTE | 2018-07-12 14:17 | Gastroenterology Progress Note ---
Date of Encounter: 07/12/18 Time of Encounter: 10:20 - Assessment and plan (1) Upper GI bleed Current Visit: Yes Status: Acute Assessment and plan: EGD yesterday with nonbleeding esophageal ulcer, esophageal stenosis, gastritis, and erosive duodenopathy. Change antiplatelet to non-NSAID. Continue PPI BID. Start TID Carafate for one month. Patient educated regarding lifestyle modifications including: (1) avoidance of foods that may precipitate reflux (eg, coffee, alcohol, chocolate, fatty foods). (2) avoidance of acidic foods that may precipitate heartburn (eg, citrus, carbonated drinks, spicy foods). (3) adoption of behaviors that may reduce esophageal acid exposure (see weight loss, smoking cessation, raising the head of the bed, and avoiding recumbency for 2-3 hours after meals). (2) Inflammatory bowel disease Current Visit: Yes Status: Acute Assessment and plan: Ulcerative colitis, continue Entocort. - Time Spent With Patient Total time spent is greater than 50% in coordination of care (as documented) at patient's floor/unit and/or counseling patient: - Subjective Interval history: Patient is resting in bed without acute complaint at this time. He states his abdominal pain has improved, but would like to stay in the hospital for several more days to further improve. - Constitutional Vitals: Temp Pulse Resp BP Pulse Ox 98.0 F 74 15 104/72 97 07/12/18 11:40 07/12/18 11:40 07/12/18 11:40 07/12/18 11:40 07/12/18 11:40 General appearance: Present: cooperative, A&O X 3, no acute distress, answers questions appropriately - Head Head exam: Present: atraumatic, normocephalic - Eye Eye exam: Present: normal appearance, sclera anicteric - ENT ENT exam: Present: mucous membranes moist - Neck Neck exam general surgery: Present: normal inspection, trachea midline - Respiratory Respiratory exam: Present: CTAB. Absent: rales, rhonchi - Cardiovascular Cardiovascular exam: Present: RRR, +S1, +S2 - GI/Abdominal GI/Abdominal exam: Present: soft, tenderness (mild epigastric tenderness, improved from yesterday), no peritoneal signs. Absent: distended, firm, guarding - Rectal Rectal exam: Present: deferred - Extremities Exam Extremities exam: Present: warm - Neurological Exam Neurological exam: Present: no focal deficits - Psychiatric Psychiatric exam: Present: normal affect, normal mood - Skin Skin exam: Present: dry, intact, normal color, warm Results - Labs CBC & Chem 7: 07/11/18 09:13 07/11/18 09:13 Labs: Last Result Calcium 8.3 mg/dL (8.6-10.3) L 07/11/18 09:13 Gastric Occult Blood Positive (Negative) A 07/10/18 08:20 Stool Occult Blood Negative (Negative) 07/10/18 14:21 Entire Visit Hgb 12.8 g/dL (12.9-16.9) L 07/11/18 09:13 Hct 41.9 % (37.5-50.1) 07/11/18 09:13 PT 15.3 Seconds (9.4-12.1) H 07/10/18 08:48 Total Bilirubin 0.6 mg/dL (0.3-1.0) 07/10/18 08:48 AST 21 Units/L (13-39) 07/10/18 08:48 ALT 14 Units/L (7-52) 07/10/18 08:48 - ABG ABG results: PT/INR, D-dimer PT 15.3 Seconds (9.4-12.1) H 07/10/18 08:48 Consult Discharge Plan - Plan Referrals: Flex De La Garza MD [Primary Care Provider] - Prescriptions: Amoxicillin [Amoxil] 500 mg PO TID 3 Days #9 capsule Pantoprazole Sodium [Protonix] 40 mg PO BID 30 Days #60 tablet. Sucralfate [Carafate] 1 gm PO QIDAC 30 Days #180 tablet
== END 2018-07-12 16:48 | DRG 193 ==
LOC: EMEROOARM 09:40 → 3BNU 09:40 → SUATTDRO 12:41 → OBSVTOIN 12:41 → 3BNU 13:48
PROVIDERS: ADMIT Internal Medicine; ATTEND Internal Medicine
PROC: ENDOERT (2018-07-11 14:15)

== ENCOUNTER 2018-08-08 10:56 | Observation (INO) ==
[2018-08-08 11:51] LABS: Basophils % 0.5 %; Eosinophils # 0.2 K/mcL (0.0-0.6); Eosinophils % 3.7 %; Hematocrit 39.9 % (37.5-50.1); Hemoglobin 12.3 g/dL (12.9-16.9); Immature Granulocytes % 0.3 % (0-4); Lymphocytes # 0.5 K/mcL (0.6-4.6); Lymphocytes % 8.2 %; Mean Corpuscular HGB Conc 30.8 g/dL (31.6-35.5); Mean Corpuscular Hemoglobin 28.5 pg (28.0-33.3); Mean Corpuscular Volume 92.4 fL (83.0-100.0); Mean Platelet Volume 9.7 fL (9.4-12.4); Monocytes # 0.5 K/mcL (0.0-1.3); Monocytes % 7.4 %; Platelet Count 221 K/mcL (140-400); Red Blood Count 4.32 M/mcL (4.19-5.50); Red Cell Distribution Width 13.6 % (11.5-14.5); Segmented Neutrophils % 79.9 %
--- NOTE | 2018-08-08 11:53 | Emergency Department Note ---
Disposition Clinical Impression: Fall Qualifiers: Encounter type: initial encounter Qualified Code(s): W19.XXXA - Unspecified fall, initial encounter Pneumonia Qualifiers: Pneumonia type: due to unspecified organism Laterality: right Lung location: lower lobe of lung Qualified Code(s): J18.1 - Lobar pneumonia, unspecified organism Disposition: Admitted As Inpatient Condition: Fair Referrals: NONE,PCP [Primary Care Provider] - Forms: ED Satisfaction Letter Time of Disposition: 15:05 Fall HPI - General Chief Complaint: ED Fall Stated Complaint: fall Time Seen by Provider: 08/08/18 11:10 Source: patient, EMS Mode of arrival: EMS Limitations: no limitations Nursing Notes Reviewed: Yes Vital Signs Reviewed: Yes - History of Present Illness HPI Narrative: Agent presents emergency room for evaluation of a fall. Patient was in his bathroom this morning and slipped on some water that was on the floor. He did not lose consciousness. He is concerned because he thought he had his head. No other complaints or issues at this time. Pt Subjective Complaint: fall Onset (ago): Just [employer] Fall From: standing Fall Witnessed: no Place Fall Occurred: home Loss of Consciousness: none Prolonged Down Time?: minute(s) Symptoms Prior to Fall: none Context: tripped/slipped Location of injury: head, hip Location of injury - extremities: Left: shoulder Severity: none Severity scale (1-10): 1 Quality: burning Associated symptoms (after fall): Reports: denies - Related Data Home Medications Medication Instructions Recorded Confirmed Acetaminophen [Tylenol] 500 mg PO Q6H PRN 08/26/16 08/08/18 Primidone [Mysoline] 50 mg PO BID 08/26/16 08/08/18 Theophylline Anhydrous [Curt-24] 100 mg PO DAILY 10/04/16 08/08/18 Roflumilast [Daliresp] 500 mcg PO DAILY 11/02/16 08/08/18 GuaiFENesin ER [Mucinex] 600 mg PO Q12H PRN 02/28/17 08/08/18 Calcium Carbonate [Calcium] 600 mg PO BIDWM 05/27/17 08/08/18 Lovastatin 40 mg PO HS 05/27/17 08/08/18 Sertraline [Zoloft] 50 mg PO HS 05/27/17 08/08/18 Tiotropium [place] [Spiriva 2 puff IH DAILY 05/27/17 08/08/18 Respimat] Metoprolol [Lopressor] 25 mg PO BID 06/06/17 08/08/18 Simethicone [Gas Relief] 180 mg PO Q4H PRN 09/02/17 08/08/18 GuaiFENesin Liq [Robitussin Liq] 200 mg PO Q6HR PRN 12/16/17 08/08/18 Tramadol HCl [Ultram] 50 mg PO QID PRN 12/16/17 08/08/18 Ipratropium/Albuterol Neb [Duoneb] 3 ml IH Q4HR PRN 01/10/18 08/08/18 Albuterol Sulfate [Proair Hfa] 2 puff PO Q4H PRN 04/03/18 08/08/18 Diphenoxylate/Atropine [Lomotil 2 each PO QID PRN 04/03/18 08/08/18 2.5 mg/0.025 mg] Potassium Chloride [K-Tab ER] 20 meq PO BIDWM 04/03/18 08/08/18 Alendronate Sodium/Vitamin D3 1 tab PO WE 07/08/18 08/08/18 [Fosamax Plus D 70 mg-2,800 Iu] Budesonide [Entocort EC] 6 mg PO DAILY 07/08/18 08/08/18 Cholestyramine (with Sugar) 1 packet PO QID PRN 07/08/18 08/08/18 [Cholestyramine Bulk Powder] Fluticasone/Vilanterol [Breo 1 puff PO DAILY 07/08/18 08/08/18 Ellipta 100-25 Mcg INH] Buspirone HCl [Buspar] 15 mg PO BID 08/08/18 08/08/18 Hydrocodone/Acetaminophen [[place] 1 each PO Q6H PRN 08/08/18 08/08/18 5-325 Tablet] Polyvinyl Alcohol/Povidone 1 drop BOTH EYES TID PRN 08/08/18 08/08/18 [Artificial Tears Drops] Tramadol HCl [Ultram] 100 mg PO QID 08/08/18 08/08/18 Previous Rx's Medication Instructions Recorded Pantoprazole Sodium [Protonix] 40 mg PO BID 30 Days #60 tablet. 07/12/18 Sucralfate [Carafate] 1 gm PO QIDAC 30 Days #180 tablet 07/12/18 Allergies Allergy/AdvReac Type Severity Reaction Status Date / Time azithromycin [From Zithromax] AdvReac See Verified 07/08/18 16:55 Comments hydrochlorothiazide AdvReac Difficulty Verified 07/08/18 16:55 Breathing ibuprofen [From Motrin] AdvReac Gastrointestinal Verified 07/08/18 16:55 Upset levofloxacin [From Levaquin] AdvReac See Verified 07/08/18 16:55 Comments All systems ED: reviewed and negative except as stated. Review of Systems: As Per HPI Constitutional: Denies: fever, chills Eyes: Denies: eye pain ENT ED: Denies: congestion Cardiovascular: Denies: chest pain, palpitations, dyspnea on exertion Respiratory: Denies: cough, dyspnea, wheezes Gastrointestinal: Denies: abdominal pain, nausea, vomiting, diarrhea Genitourinary: Denies: urgency, dysuria, frequency Musculoskeletal: Denies: back pain, neck pain Integumentary: Denies: rash Neurological: Denies: headache Psychiatric: Denies: anxiety, depression Endocrine: Denies: fatigue Fall PMH - Past Medical History Medical history: Reports: atrial fibrillation, COPD, CVA, DVT, hyperlipidemia, hypertension, kidney stones Surgical history: Reports: tonsillectomy, other Psychiatric history: Reports: anxiety, depression - Social History Smoking Status: Former smoker Alcohol use: Reports: none Drug use: Reports: none Physical Exam - General Limitations: no limitations General appearance: alert, in no apparent distress - Head Head exam: atraumatic, normocephalic, normal inspection - ENT ENT exam: normal exam, normal oropharynx, mucous membranes moist - Neck Neck exam: Present: normal inspection, full ROM, trachea midline. Absent: tenderness - Chest Chest inspection: Present: normal inspection, symmetric chest wall rise. Absent: tenderness - Respiratory Respiratory exam: Present: normal lung sounds bilaterally. Absent: respiratory distress, accessory muscle use - Cardiovascular Cardiovascular exam: Present: regular rate, normal rhythm, normal heart sounds - Abdominal Exam Abdominal exam: Present: soft, Non-Tender, normal bowel sounds. Absent: tenderness, distention, guarding, rebound, rigidity - Extremities Exam Extremities exam: Present: normal inspection - Back Exam Back exam: Present: normal inspection, full ROM. Absent: tenderness - Neurological Exam Neurological exam: Present: alert, oriented X3, CN II-XII intact, normal gait - Skin Skin exam: Present: warm, dry, intact, normal color Course Course Narrative: Patient presents emergency room after slipping and falling in his bathroom and is nursing facility here today. Patient was going to the restroom and ac cidentally. On the floor. When he went to turn the pulp is patency slipped falling onto his buttock and hitting his left shoulder on the wall or floor. He does think that he hit his head but did not lose consciousness. He is on aspirin. Patient denies any other complaints outside of by Dr. benavidez left shoulder pain and generalized discomfort. Currently denying chest pain shortness of breath headache vision changes nausea vomiting or diarrhea. He does not have any fevers or chills. He has not fallen or injured himself prior to these events. Head is atraumatic. Pupils are equal and reactive. He has no reproducible midline tenderness to cervical thoracic or lumbar spine. His lungs are clear. Heart is regular. He moves both shoulders and says that the pain in the shoulder is gone at this time. He has no crepitus or deformity to the chest wall. Abdomen is soft. Pelvis is stable. He does have pain in the posterior aspect of his back. He does have the ability to move both his legs without any significant ataxia or deficit. CT imaging of the head and cervical spine along with CT imaging of the abdomen will be resulted. Chest x-ray screening labs will be ordered including an EKG. Patient is otherwise clinically stable. No other acute issues noted this point. Disposition pending full workup. Pain medication has been offered but declined at this time - Reevaluation(s) Reevaluation #1: CT imaging of the head cervical spine and abdomen are otherwise unremarkable outside of a right-sided pleural effusion and possible pneumonia. Patient has been treated for a right-sided pneumonia here within the last several weeks. He has still had a productive cough. All the injury sustained today were to the left side of his chest wall. Low clinical suspicion for pulmonary contusion at this time. Patient has had refractory pneumonia with pleural effusion. Patient is been on oral antibiotics and is still clinically showing signs of an infection in the lower lobe of the lung. IV antibiotics including vancomycin and Zosyn as well as blood cultures and lactic acid will be ordered at this time. Patient will be admitted for refractory pneumonia that is failed outpatient treatment. Hospitalist has been paged at this time. Time: 13:46 Reevaluation #2: Was discussed with the hospitalist Dr. Machuca area detailed review the presentation the symptoms medical intervention and recommendations were reviewed. No other concerns or issues at this time. Patient is otherwise cl inically stable. Will be admitted for what appears to be refractory are failed outpatient management of pneumonia. Patient is otherwise clinically stable in no distress at time of admission. Patient will be monitored here in the emergency department until the admission process is completed Time: 15:05 Vital Signs Temperature 98.3 F 08/08/18 11:03 Pulse Rate 71 08/08/18 11:03 Respiratory Rate 18 08/08/18 11:03 Blood Pressure 133/74 08/08/18 11:03 O2 Sat by Pulse Oximetry 94 08/08/18 11:03 Temperature 98.3 F 08/08/18 11:03 Pulse Rate 56 08/08/18 14:25 Respiratory Rate 16 08/08/18 14:25 Blood Pressure 124/88 08/08/18 14:25 O2 Sat by Pulse Oximetry 2 08/08/18 14:25 Oxygen Delivery Oxygen Delivery Nasal Cannula Fall - MDM Narrative Medical decision making narrative: Fall, left shoulder pain, pelvis pain - Medical Records Medical records reviewed: Yes I reviewed the patient's medical records. - Lab Data Lab results reviewed: Yes I reviewed the patient's lab results. Result diagrams: 08/08/18 11:35 08/08/18 11:35 Lab Results 08/08/18 08/08/18 08/08/18 Range/Units 11:35 11:35 11:35 WBC 6.2 (4.3-11.1) K/mcL RBC 4.32 (4.19-5.50) M/mcL Hgb 12.3 L (12.9-16.9) g/dL Hct 39.9 (37.5-50.1) % MCV 92.4 (83.0-100.0) fL MCH 28.5 (28.0-33.3) pg MCHC 30.8 L (31.6-35.5) g/dL RDW 13.6 (11.5-14.5) % Plt Count 221 (140-400) K/mcL MPV 9.7 (9.4-12.4) fL Immature Gran % 0.3 (0-4) % Seg Neutrophils % 79.9 % Lymphocytes % 8.2 % Monocytes % 7.4 % Eosinophils % 3.7 % Basophils % 0.5 % Neutrophils # 5.0 (1.6-8.9) K/mcL Lymphocytes # 0.5 L (0.6-4.6) K/mcL Monocytes # 0.5 (0.0-1.3) K/mcL Eosinophils # 0.2 (0.0-0.6) K/mcL Basophils # 0.0 (0.0-0.2) K/mcL PT 13.5 H (9.4-12.1) Seconds INR 1.2 APTT 28.5 (26.0-36.0) Seconds Sodium 136 (136-145) mEq/L Potassium 4.0 (3.5-5.1) mEq/L Chloride 103 (98-107) mEq/L Carbon Dioxide 29 (23-29) mEq/L BUN 10 (8-23) mg/dL Creatinine 0.89 (0.70-1.30) mg/dL Est GFR ( Amer) > 60 (> 60) Est GFR (Non-Af Amer) > 60 (> 60) BUN/Creatinine Ratio 11 (6-26) Glucose 121 H (70-105) mg/dL Calculated Osmolality 282 (280-300) Lactic Acid (0.5-2.2) mmol/L Calcium 8.7 (8.6-10.3) mg/dL Procalcitonin (0.00-0.15) ng/mL Urine Color (Yellow) Urine Clarity (Clear) Urine pH (5.0-8.0) pH Units Ur Specific [place] (1.010-1.025) Urine Protein (Neg-Trace) mg/dL Urine Glucose (UA) (Normal) mg/dL Urine Ketones (Negative) mg/dL Urine Blood (Negative) Urine Nitrite (Negative) Urine Bilirubin (Negative) Urine Urobilinogen (Normal) mg/dL Ur Leukocyte Esterase (Negative) Ur Culture Indicated? (NO) 08/08/18 08/08/18 08/08/18 Range/Units 11:35 12:54 14:03 WBC (4.3-11.1) K/mcL RBC (4.19-5.50) M/mcL Hgb (12.9-16.9) g/dL Hct (37.5-50.1) % MCV (83.0-100.0) fL MCH (28.0-33.3) pg MCHC (31.6-35.5) g/dL RDW (11.5-14.5) % Plt Count (140-400) K/mcL MPV (9.4-12.4) fL Immature Gran % (0-4) % Seg Neutrophils % % Lymphocytes % % Monocytes % % Eosinophils % % Basophils % % Neutrophils # (1.6-8.9) K/mcL Lymphocytes # (0.6-4.6) K/mcL Monocytes # (0.0-1.3) K/mcL Eosinophils # (0.0-0.6) K/mcL Basophils # (0.0-0.2) K/mcL PT (9.4-12.1) Seconds INR APTT (26.0-36.0) Seconds Sodium (136-145) mEq/L Potassium (3.5-5.1) mEq/L Chloride (98-107) mEq/L Carbon Dioxide (23-29) mEq/L BUN (8-23) mg/dL Creatinine (0.70-1.30) mg/dL Est GFR ( Amer) (> 60) Est GFR (Non-Af Amer) (> 60) BUN/Creatinine Ratio (6-26) Glucose (70-105) mg/dL Calculated Osmolality (280-300) Lactic Acid 1.5 (0.5-2.2) mmol/L Calcium (8.6-10.3) mg/dL Procalcitonin 0.07 (0.00-0.15) ng/mL Urine Color Yellow (Yellow) Urine Clarity Clear (Clear) Urine pH 6.0 (5.0-8.0) pH Units Ur Specific [place] 1.018 (1.010-1.025) Urine Protein Negative (Neg-Trace) mg/dL Urine Glucose (UA) Normal (Normal) mg/dL Urine Ketones Negative (Negative) mg/dL Urine Blood Negative (Negative) Urine Nitrite Negative (Negative) Urine Bilirubin Negative (Negative) Urine Urobilinogen Normal (Normal) mg/dL Ur Leukocyte Esterase Negative (Negative) Ur Culture Indicated? NO (NO) - Radiology Data Radiology results reviewed: Yes I reviewed the patient's radiology results. CT imaging of the head and cervical spine are unremarkable. CT the abdomen comments on a right pleural effusion and pneumonia. No visible signs of trauma or injury to lower pelvis. - EKG Data EKG attestation: Yes I reviewed and interpreted this EKG. EKG results narrative: EKG shows sinus rhythm. Heart rate of 57. NC interval 151. QRS duration of 82. QTC of 428. [place] is normal. No acute signs of ST segment elevation or abnormality. No acute signs of WPW or Brugada syndrome. Compared to previous EKG on 06/27/18 with no acute changes.
[2018-08-08 11:56] LABS: INR 1.2; Prothrombin Time 13.5 Seconds (9.4-12.1)
[2018-08-08 11:58] LABS: Activated Partial Thrombo Time 28.5 Seconds (26.0-36.0)
[2018-08-08 12:12] LABS: BUN/Creatinine Ratio 11 (6-26); Blood Urea Nitrogen 10 mg/dL (8-23); Calcium 8.7 mg/dL (8.6-10.3); Carbon Dioxide 29 mEq/L (23-29); Chloride 103 mEq/L (98-107); Glucose 121 mg/dL (70-105); Osmolality,Calculated 282 (280-300); Sodium 136 mEq/L (136-145); eGFR For Non-African Americans > 60 (> 60)
[2018-08-08 13:27] LABS: Bilirubin,Urine Negative (Negative); Blood,Urine Negative (Negative); Clarity,Urine Clear (Clear); Color,Urine Yellow (Yellow); Glucose,Urine (UA) Normal (Normal); Ketones,Urine Negative (Negative); Leukocyte Esterase,Urine Negative (Negative); Nitrite,Urine Negative (Negative); Protein,Urine Negative (Neg-Trace); Specific Gravity,Urine 1.018 (1.010-1.025); Urobilinogen,Urine Normal (Normal)
[2018-08-08] MEDS ORDERED: Vancomycin (wt based) 1,000 MG VIAL IVPB SCH (14:00)
[2018-08-08] MEDS ORDERED: Piperacillin/Tazobactam 3.375 GM in 0.9 % Sodium Chloride Mini Bag 100 ML IVPB SCH (16:00)
--- NOTE | 2018-08-08 16:26 | Internal Med History&Physical ---
Date of Encounter: 08/08/18 Time of Encounter: 16:24 Internal Medicine - H&P: HPI Chief complaint: fall Admitted From: Long-term Nursing Facility Plans for Post Hospital Care: [facility] History of present illness: Mr. Steven is a 67 year old male 's medical history of kidney stones, significant COPD emphysematous changes with 2 L home oxygen, hypertension, paroxysmal A. fib, depression who was recently admitted for pneumonia and was found to have some gastritis and esophageal ulcer with erosive duodenitis likely secondary to NSAID use came in after a fall. Patient finished his course of antibiotics and was doing well otherwise. Patient this morning slipped in the bathroom and lost his balance and fell on his buttocks and slightly on his left side. Came in here for further evaluation. He did hit his head slightly on the back of his head. Denied any loss of consciousness. Denies any fevers however had some on and off chills. Denies any weight loss. Patient was evaluated in the ER with labs otherwise unremarkable except mild anemia. Patient had CT abdomen and pelvis, CT spine and head CT which were unremarkable. Chest x-ray showed moderate to large amount of opacity in right lower lung suspicion of pulmonary contusion or pre-existing pneumonia. Patient did not have any fevers or chills or increase sputum production. Patient has about [id number] history of smoking however quit 1 year ago. On review of chart there were abnormal CT scan since January 2018 for which patient had bronchoscopy reportedly. Could not find a bronchoscopy report however biopsy specimen were benign on pathology report. Admission was requested for recurrent pneumonia. Patient received Zosyn in ER. Patient on aspirin before which was held on last discharge due to upper GI bleed. Patient heart rate controlled with metoprolol. Pro-calcitonin level were unremarkable. Admission was reques augustin for further management. Past Med Surg Social Fam HX - Past Medical History Medical history: atrial fibrillation, COPD, CVA, DVT, hyperlipidemia, hypertension, kidney stones Additional medical history: Emphysema Psychiatric history: anxiety, depression - Past Surgical History Surgical History: tonsillectomy, other Additional surgical history: Herniated testical repair 1961, teeth removed - Social History Smoking Status: Former smoker Smokeless Tobacco Status: No Alcohol use: none Drug use: none - Family History Brother Family Member Ethnicity: Non- Living Status: Mother Adopted: No Family Member Ethnicity: Non- Living Status: Hx Family Cardiac Disorders: No Hx Family Respiratory Disorders: Yes Hx Family Cancer: Yes (lung) Hx Family GI Disorders: No Hx Family Endocrine Disorder: No Hx Family Neuromuscular Disorders: No Hx Family Neurologic Disorders: No Hx Family HEENT Disorders: No Hx Family Autoimmune Disorders: No Father Adopted: No Family Member Ethnicity: Non- Living Status: Hx Family Cardiac Disorders: No Hx Family Respiratory Disorders: Yes Hx Family Cancer: No Hx Family GI Disorders: No Hx Family Endocrine Disorder: No Hx Family Neuromuscular Disorders: No Hx Family Neurologic Disorders: No Hx Family HEENT Disorders: No Hx Family Autoimmune Disorders: No Internal Medicine - H&P: Meds Acetaminophen [Tylenol] 500 mg PO Q6H PRN 08/26/16 [History] Primidone [Mysoline] 50 mg PO BID 08/26/16 [History] Theophylline Anhydrous [Curt-24] 100 mg PO DAILY 10/04/16 [History] Roflumilast [Daliresp] 500 mcg PO DAILY 11/02/16 [History] GuaiFENesin ER [Mucinex] 600 mg PO Q12H PRN 02/28/17 [History] Calcium Carbonate [Calcium] 600 mg PO BIDWM 05/27/17 [History] Lovastatin 40 mg PO HS 05/27/17 [History] Sertraline [Zoloft] 50 mg PO HS 05/27/17 [History] Tiotropium [place] [Spiriva Respimat] 2 puff IH DAILY 05/27/17 [History] Metoprolol [Lopressor] 25 mg PO BID 06/06/17 [History] Simethicone [Gas Relief] 180 mg PO Q4H PRN 09/02/17 [History] GuaiFENesin Liq [Robitussin Liq] 200 mg PO Q6HR PRN 12/16/17 [History] Tramadol HCl [Ultram] 50 mg PO QID PRN 12/16/17 [History] Ipratropium/Albuterol Neb [Duoneb] 3 ml IH Q4HR PRN 01/10/18 [History] Albuterol Sulfate [Proair Hfa] 2 puff PO Q4H PRN 04/03/18 [History] Diphenoxylate/Atropine [Lomotil 2.5 mg/0.025 mg] 2 each PO QID PRN 04/03/18 [History] Potassium Chloride [K-Tab ER] 20 meq PO BIDWM 04/03/18 [History] Alendronate Sodium/Vitamin D3 [Fosamax Plus D 70 mg-2,800 Iu] 1 tab PO WE 07/08/18 [History] Budesonide [Entocort EC] 6 mg PO DAILY 07/08/18 [History] Cholestyramine (with Sugar) [Cholestyramine Bulk Powder] 1 packet PO QID PRN 07/08/18 [History] Fluticasone/Vilanterol [Breo Ellipta 100-25 Mcg INH] 1 puff PO DAILY 07/08/18 [History] Pantoprazole Sodium [Protonix] 40 mg PO BID 30 Days #60 tablet. 07/12/18 [Rx] Sucralfate [Carafate] 1 gm PO QIDAC 30 Days #180 tablet 07/12/18 [Rx] Buspirone HCl [Buspar] 15 mg PO BID 08/08/18 [History] Hydrocodone/Acetaminophen [[place] 5-325 Tablet] 1 each PO Q6H PRN 08/08/18 [History] Polyvinyl Alcohol/Povidone [Artificial Tears Drops] 1 drop BOTH EYES TID PRN 08/08/18 [History] Tramadol HCl [Ultram] 100 mg PO QID 08/08/18 [History] Allergy/AdvReac Type Severity Reaction Status Date / Time azithromycin [From Zithromax] AdvReac See Verified 07/08/18 16:55 Comments hydrochlorothiazide AdvReac Difficulty Verified 07/08/18 16:55 Breathing ibuprofen [From Motrin] AdvReac Gastrointestinal Verified 07/08/18 16:55 Upset levofloxacin [From Levaquin] AdvReac See Verified 07/08/18 16:55 Comments All Systems PM: A 10-system review of systems was performed and is negative for pertinent findings except as documented above in the HPI. - Constitutional Vitals: Temp Pulse Resp BP Pulse Ox 98.3 F 56 15 117/77 92 08/08/18 11:03 08/08/18 14:25 08/08/18 15:37 08/08/18 15:37 08/08/18 14:25 Exam: Constitutional: Vitals as noted. Conversant. No Apparent Distress. Well groomed. No obvious deformities. Eyes : Sclera white, conjunctiva clear, no lid lag, PEAR[place]. ENT : Grossly normal hearing. Oropharyngeal exam unremarkable. Moist mucus membranes. No JVD, no cervical lymphadenopathy. no thyromegaly or mass. Respiratory : No accessory muscle use. Mild crackles at base. decreased air entry bilaterally Cardiovascular : RRR, +S1, +S2. no murmur, gallop, rubs. No chest wall tenderness GI/Abdominal : Soft, Non-tender, Non-distended, normal bowel sounds, soft, no peritoneal signs. no orgenomegaly or mass appreciated. no hernia. Musculoskeletal: no deformity noted. no edema or cyanosis. warm extremities, pulses palpable and symmetrical in UE/LE. no calf tenderness. tenderness on deep palpation on coccyx. Neurological: AO X3, CN II-XII grossly intact, grossly normal motor and sensory exam. Skin: hyperpigmented rash on Lt LE Internal Med - H&P Results - Labs CBC & Chem 7: 08/08/18 11:35 08/08/18 11:35 Labs: Short CBC 08/08/18 Range/Units 11:35 WBC 6.2 (4.3-11.1) K/mcL Hgb 12.3 L (12.9-16.9) g/dL Hct 39.9 (37.5-50.1) % Plt Count 221 (140-400) K/mcL Neutrophils # 5.0 (1.6-8.9) K/mcL BMP 08/08/18 11:35 Sodium 136 Potassium 4.0 Chloride 103 Carbon Dioxide 29 BUN 10 Creatinine 0.89 Glucose 121 H Calcium 8.7 Urine 08/08/18 Range/Units 12:54 Urine Color Yellow (Yellow) Urine Clarity Clear (Clear) Urine pH 6.0 (5.0-8.0) pH Units Ur Specific [place] 1.018 (1.010-1.025) Urine Protein Negative (Neg-Trace) mg/dL Urine Glucose (UA) Normal (Normal) mg/dL - EKG Data -: EKG Interpreted by Myself EKG shows normal: sinus rhythm Rate: normal - Impressions ITS Impressions Abdomen/Pelvis CT 08/08/18 11:20 IMPRESSION: New small right pleural effusion with right lower lobe atelectasis or infiltrate. Cholelithiasis. Diverticulosis. Question gastric wall thickening, nonspecific. Consider correlation to direct visualization or barium evaluation. D/ / 08/08/2018 12:48:54 Gennaro Jackman MD / heather Interpreting Provider: Gennaro Jackman MD Cervical Spine CT 08/08/18 11:20 IMPRESSION: No acute abnormality of the cervical spine. D/ / Valentina Cardona MD / Valentina Cardona MD Interpreting Provider: Valentina Cardona MD Chest X-Ray 08/08/18 11:20 IMPRESSION: Moderate to large amount of opacity in the lower right lung worrisome for pulmonary contusion. Pre-existing pneumonia as a cause for the patient's fall is another consideration. Very small right pleural effusion. Slight to mild chronic left basilar atelectasis or scarring. Mild bullous changes. D/ / Donovan Pearson MD / Donovan Pearson MD Interpreting Provider: Donovan Pearson MD Head CT 08/08/18 11:20 IMPRESSION: No acute intracranial abnormality. D/ / Valentina Cardona MD / Valentina Cardona MD Interpreting Provider: Valentina Cardona MD - Assessment and Plan (1) Abnormal CXR Current Visit: Yes Status: Acute Assessment and plan: Patient does not appear to have pneumonia However does have abnormal chest to compare to last with right-sided infiltrate. Less likely to be contusion as he did not fall on Rt side. We will obtain CT chest to further evaluate We will hold antibiotics for now given hemodynamically stable, without significant shortness of breath, normal pro calcitonin and afebrile Bronchoscopy done recently biopsy showing benign bronchial mucosa. Full report not available. We will consult pulmonology for tomorrow. We will keep nothing by mouth in case needs bronchoscopy. (2) Fall Current Visit: Yes Status: Acute Assessment and plan: Likely mechanical Obtain PT/OT. Qualifiers: Encounter type: initial encounter Qualified Code(s): W19.XXXA - Unspecified fall, initial encounter (3) Anxiety Current Visit: No Status: Acute Assessment and plan: Continue home medications (4) COPD (chronic obstructive pulmonary disease) Current Visit: No Status: Chronic Assessment and plan: Not in exacerbation Continue home inhalers including Spiriva, albuterol, and the, along with home roflumilast and theophylline Qualifiers: COPD type: emphysema Emphysema type: unspecified Qualified Code(s): J43.9 - Emphysema, unspecified (5) Chronic respiratory failure Current Visit: No Status: Chronic Assessment and plan: Continue home supplemental oxygen Qualifiers: Respiratory failure complication: hypoxia Qualified Code(s): J96.11 - Chronic respiratory failure with hypoxia (6) HTN (hypertension) Current Visit: No Status: Chronic Assessment and plan: Continue home metoprolol Qualifiers: Hypertension type: essential hypertension Qualified Code(s): I10 - Essential (primary) hypertension (7) Paroxysmal A-fib Current Visit: Yes Status: Acute Assessment and plan: Currently in sinus No on AC. Only on ASA before but stopped after recently EGD showing NSAID gastropathy c/w home metoprolol for rate control. (8) DVT prophylaxis Current Visit: No Status: Chronic Assessment and plan: epcd - Time Spent With Patient Total time spent is greater than 50% in coordination of care (as documented) at patient's floor/unit and/or counseling patient:
[2018-08-08] MEDS ORDERED: Naloxone 0.4 MG/ML INJ IVP PRN (16:32)
[2018-08-08] MEDS ORDERED: *HR* HYDROcodone/Acet 5/325 mg TABLET PO PRN (16:40)
[2018-08-08] MEDS ORDERED: Ipratropium/Albuterol Neb 3 ML IH PRN (16:40)
[2018-08-08] MEDS: Primidone 50 MG TABLET PO SCH (21:02)
[2018-08-08] MEDS: Sucralfate 1 GM TABLET PO SCH (21:02)
[2018-08-09] MEDS ORDERED: Albuterol 2.5 MG/3 ML NEBULIZER IH PRN (07:49)
[2018-08-09] MEDS ORDERED: (Fluticasone/Vilanterol [Breo Ellipta 100-25 Mcg Inh] PO SCH (09:00)
[2018-08-09] MEDS ORDERED: (Tiotropium Bromide [Spiriva Respimat] 2 PUFF) IH SCH (09:00)
[2018-08-09] MEDS ORDERED: (Roflumilast [Daliresp] 500 MCG) PO SCH (09:00)
[2018-08-09] MEDS: Sucralfate 1 GM TABLET PO SCH ×4 (09:30→20:55)
[2018-08-09] MEDS: Primidone 50 MG TABLET PO SCH ×2 (09:30→20:55)
[2018-08-09] MEDS: Budesonide/Formoterol 160/4.5 1 PUFF INH IH SCH ×2 (10:53→20:31)
[2018-08-09] MEDS: Tiotropium 18 MCG inhalation IH SCH (10:54)
--- NOTE | 2018-08-09 11:59 | Pulmonology Consult Note ---
Date of Encounter: 08/09/18 Time of Encounter: 08:00 Assessment and Plan (1) COPD (chronic obstructive pulmonary disease) Current Visit: No Status: Chronic COPD with emphysematous changes to continue bronchodilators. No evidence of acute COPD exacerbation we will hold off steroids. Patient can be discharged home tomorrow Qualifiers: COPD type: emphysema Emphysema type: panlobular Qualified Code(s): J43.1 - Panlobular emphysema (2) Pleural effusion, right Current Visit: No Status: Acute Patient has right-sided pleural effusion, parapneumonic possible patient had a recent fall will do an ultrasound examination see whether has a pocket to drain the fluid. p.s did ultrasound of the right side the chest and the left side chest right- sided has small amount of pleural effusion on the safe pocket to drain the fluid the left side is very minimal pleural effusion patient has bilateral atelect asis. Encourage patient to do incentive spirometry encouraged him to sit and more around. (3) Pneumonia Current Visit: No Status: Resolved Looks like right lower lobe consolidation already completed the antibiotic therapy currently Percocet on and is negative not much clinical symptoms of pneumonia agree with discontinuing antibiotics and watch. Qualifiers: Pneumonia type: due to unspecified organism Laterality: right Lung location: lower lobe of lung Qualified Code(s): J18.1 - Lobar pneumonia, unspecified organism (4) Chronic respiratory failure Current Visit: Yes Status: Acute Patient oxygen dependent COPD 2 L at baseline patient currently is at his baseline oxygen requirement. Qualifiers: Respiratory failure complication: hypoxia Qualified Code(s): J96.11 - Chronic respiratory failure with hypoxia History of Present Illness Consult date: 08/09/18 Requesting physician: Parvin Snow Chief complaint: Fall History of present illness: 67-year-old male with past medical history significant COPD oxygen dependent was recently treated for pneumonia. Comes with fall looks like a mechanical fall denies any chest pain chest tightness denies any palpitation or syncope. Patient has this persistent right lower lobe consolidation and pleural effusion pulmonary was consulted for evaluation for possible pneumonia. Patient denies much cough or sputum production has some chest tenderness around the bilateral rib area has some tenderness in the middle lower thoracic spine CT chest did not show any bony abnormalities or any fractures Past Med Surg Social Fam HX - Past Medical History Medical history: atrial fibrillation, COPD, CVA, DVT, hyperlipidemia, hypertension, kidney stones Additional medical history: Emphysema Psychiatric history: anxiety, depression - Past Surgical History Surgical History: tonsillectomy, other Additional surgical history: Herniated testical repair 1961, teeth removed - Social History Smoking Status: Former smoker Smokeless Tobacco Status: No Alcohol use: none Drug use: none - Family History Brother Family Member Ethnicity: Non- Living Status: Mother Adopted: No Family Member Ethnicity: Non- Living Status: Hx Family Cardiac Disorders: No Hx Family Respiratory Disorders: Yes Hx Family Cancer: Yes (lung) Hx Family GI Disorders: No Hx Family Endocrine Disorder: No Hx Family Neuromuscular Disorders: No Hx Family Neurologic Disorders: No Hx Family HEENT Disorders: No Hx Family Autoimmune Disorders: No Father Adopted: No Family Member Ethnicity: Non- Living Status: Hx Family Cardiac Disorders: No Hx Family Respiratory Disorders: Yes Hx Family Cancer: No Hx Family GI Disorders: No Hx Family Endocrine Disorder: No Hx Family Neuromuscular Disorders: No Hx Family Neurologic Disorders: No Hx Family HEENT Disorders: No Hx Family Autoimmune Disorders: No Medications and Allergies Acetaminophen [Tylenol] 500 mg PO Q6H PRN 08/26/16 [History] Primidone [Mysoline] 50 mg PO BID 08/26/16 [History] Theophylline Anhydrous [Curt-24] 100 mg PO DAILY 10/04/16 [History] Roflumilast [Daliresp] 500 mcg PO DAILY 11/02/16 [History] GuaiFENesin ER [Mucinex] 600 mg PO Q12H PRN 02/28/17 [History] Calcium Carbonate [Calcium] 600 mg PO BIDWM 05/27/17 [History] Lovastatin 40 mg PO HS 05/27/17 [History] Sertraline [Zoloft] 50 mg PO HS 05/27/17 [History] Tiotropium [place] [Spiriva Respimat] 2 puff IH DAILY 05/27/17 [History] Metoprolol [Lopressor] 25 mg PO BID 06/06/17 [History] Simethicone [Gas Relief] 180 mg PO Q4H PRN 09/02/17 [History] GuaiFENesin Liq [Robitussin Liq] 200 mg PO Q6HR PRN 12/16/17 [History] Tramadol HCl [Ultram] 50 mg PO QID PRN 12/16/17 [History] Ipratropium/Albuterol Neb [Duoneb] 3 ml IH Q4HR PRN 01/10/18 [History] Albuterol Sulfate [Proair Hfa] 2 puff PO Q4H PRN 04/03/18 [History] Diphenoxylate/Atropine [Lomotil 2.5 mg/0.025 mg] 2 each PO QID PRN 04/03/18 [History] Potassium Chloride [K-Tab ER] 20 meq PO BIDWM 04/03/18 [History] Alendronate Sodium/Vitamin D3 [Fosamax Plus D 70 mg-2,800 Iu] 1 tab PO WE 07/08/18 [History] Budesonide [Entocort EC] 6 mg PO DAILY 07/08/18 [History] Cholestyramine (with Sugar) [Cholestyramine Bulk Powder] 1 packet PO QID PRN 07/08/18 [History] Fluticasone/Vilanterol [Breo Ellipta 100-25 Mcg INH] 1 puff PO DAILY 07/08/18 [History] Pantoprazole Sodium [Protonix] 40 mg PO BID 30 Days #60 tablet. 07/12/18 [Rx] Sucralfate [Carafate] 1 gm PO QIDAC 30 Days #180 tablet 07/12/18 [Rx] Buspirone HCl [Buspar] 15 mg PO BID 08/08/18 [History] Hydrocodone/Acetaminophen [[place] 5-325 Tablet] 1 each PO Q6H PRN 08/08/18 [History] Polyvinyl Alcohol/Povidone [Artificial Tears Drops] 1 drop BOTH EYES TID PRN 08/08/18 [History] Tramadol HCl [Ultram] 100 mg PO QID 08/08/18 [History] Allergy/AdvReac Type Severity Reaction Status Date / Time azithromycin [From Zithromax] AdvReac See Verified 07/08/18 16:55 Comments hydrochlorothiazide AdvReac Difficulty Verified 07/08/18 16:55 Breathing ibuprofen [From Motrin] AdvReac Gastrointestinal Verified 07/08/18 16:55 Upset levofloxacin [From Levaquin] AdvReac See Verified 07/08/18 16:55 Comments All Systems: The remainder of the systems were reviewed and are negative Physical Examination Vital Signs: Vital Signs, Last 4 Hours Temp Pulse Resp BP Pulse Ox 08/09/18 10:50 98.2 F 54 17 142/78 97 General appearance: no acute distress Effort: normal Auscultation: bilateral: diminished breath sounds (Basilar) Cardiovascular: irregular rhythm Gastrointestinal: normoactive bowel sounds Extremities: no edema normal mental status, non-focal exam mood appropriate Results - Laboratory Findings CBC and BMP: 08/08/18 11:35 08/08/18 11:35 PT/INR, D-dimer PT 13.5 Seconds (9.4-12.1) H 08/08/18 11:35 Abnormal lab findings: Abnormal lab results Hgb 12.3 g/dL (12.9-16.9) L 08/08/18 11:35 MCHC 30.8 g/dL (31.6-35.5) L 08/08/18 11:35 0.5 K/mcL (0.6-4.6) L 08/08/18 11:35 PT 13.5 Seconds (9.4-12.1) H 08/08/18 11:35 Glucose 121 mg/dL (70-105) H 08/08/18 11:35 - Microbiology Findings Microbiology Findings: Microbiology, Last 48 Hours 08/08/18 13:58 Blood Culture - Preliminary Peripheral Venipuncture Culture is incubating and being continuously monitored for growth. Final report to follow. 08/08/18 14:03 Blood Culture - Preliminary Peripheral Venipuncture Culture is incubating and being continuously monitored for growth. Final report to follow. - Clinical Findings Intake & Output: Intake & Output 08/08/18 08/09/18 08/09/18 23:59 07:59 15:59 Intake Total 590 / 590 120 / 120 Output Total 275 / 275 200 / 200 0 / 200 Balance 315 / 315 -200 / -80 120 / -80 Consult Discharge Plan - Plan Referrals: NONE,PCP [Primary Care Provider] -
--- NOTE | 2018-08-09 14:47 | Internal Med Progress Note ---
Hospitalist Progress Note - Encounter Date of Encounter: 08/09/18 Time of Encounter: 08:23 - Subjective Interval History: Patient seen and examined this morning and was admitted no acute overnight events. Patient with mild cough and minimal expectoration. Denies any breathing difficulties or chest pain. Has some pain at the tail bone. Denies any fevers chills nausea vomiting or diarrhea. - Exam Vitals: Temp Pulse Resp BP Pulse Ox 98.2 F 54 17 142/78 97 08/09/18 10:50 08/09/18 10:50 08/09/18 10:50 08/09/18 10:50 08/09/18 10:50 Exam: General: In no acute distress. Respiratory exam: No accessory muscle use. Mild crackles at base. decreased air entry bilaterally Cardiovascular exam: RRR, +S1, +S2. no murmur, gallop, rubs. GI/Abdominal exam: Non-tender, Non-distended, normal bowel sounds, soft, no peritoneal signs. Extremities exam: no pedal edema, pulses palpable in b/l lower extremities. no calf tenderness Neurological exam: CN II-XII intact, AO X3, no focal deficits. Skin exam: hyperpigmented rash on Lt LE - Assessment and Plan (1) Abnormal CXR Current Visit: Yes Status: Acute (2) Fall Current Visit: Yes Status: Acute (3) Anxiety Current Visit: No Status: Acute (4) COPD (chronic obstructive pulmonary disease) Current Visit: No Status: Chronic (5) Chronic respiratory failure Current Visit: No Status: Chronic (6) HTN (hypertension) Current Visit: No Status: Chronic (7) Paroxysmal A-fib Current Visit: Yes Status: Acute (8) DVT prophylaxis Current Visit: No Status: Chronic - Summary of Assessment and Plan Summary of Assessment and Plan: Assessment Acute Abnormal CXR Plueral effusion Mechanical Fall Chronic Recent UGI bleed COPD Chronic respiratory failure HTN Paroxysmal Afib anxiety DVT ppx Plan - Patient does not appear to have active infection with pneumonia or sepsis. Procal normal. Finished antibiotics recently. Hold off antibiotics for now. Has Rt pleural effusioin. Pulmonology consulted. Likely to do thorocentesis under US guidance - Recent bronchoscopy with normal results. - c/w homesymbicort, theophylline, bronchodilators and supplemental oxygen - c/w home buspiron, sertralline and primidone - c/w sucralfate for NSAID gastropathy with recent UGI bleed. - c/w metoprolol - Time Spent with Patient Total time spent is greater than 50% in coordination of care (as documented) at patient's floor/unit and/or counseling patient: Internal Medicine: Result - Labs CBC & Chem 7: 08/08/18 11:35 08/08/18 11:35 - ABG Interpretation ABG results: PT/INR, D-dimer PT 13.5 Seconds (9.4-12.1) H 08/08/18 11:35 - Impressions Impressions Chest CT 08/08/18 16:35 IMPRESSION: Small to moderate right and trace left pleural effusions. There is dependent airspace disease, atelectasis and/or pneumonia. D/ / Anabel Caro Cha, MD / Anabel Caro Cha, MD Interpreting Provider: Anabel Caro Cha, MD Consult Discharge Plan - Plan Referrals: NONE,PCP [Primary Care Provider] - (2) Fall Qualifiers: Encounter type: initial encounter Qualified Code(s): W19.XXXA - Unspecified fall, initial encounter (4) COPD (chronic obstructive pulmonary disease) Qualifiers: COPD type: emphysema Emphysema type: unspecified Qualified Code(s): J43.9 - Emphysema, unspecified (5) Chronic respiratory failure Qualifiers: Respiratory failure complication: hypoxia Qualified Code(s): J96.11 - Chronic respiratory failure with hypoxia (6) HTN (hypertension) Qualifiers: Hypertension type: essential hypertension Qualified Code(s): I10 - Essential (primary) hypertension
[2018-08-09] MEDS ORDERED: NON-FORMULARY MEDICATION 1 EACH EACH (Alendronate Sodium/Vitamin D3 [Fosamax Plus D 70 Mg- PO SCH (16:40)
[2018-08-10] MEDS: Tiotropium 18 MCG inhalation IH SCH (07:55)
[2018-08-10] MEDS: Budesonide/Formoterol 160/4.5 1 PUFF INH IH SCH (07:55)
[2018-08-10] MEDS: Primidone 50 MG TABLET PO SCH (09:41)
[2018-08-10] MEDS: Sucralfate 1 GM TABLET PO SCH ×2 (09:41→12:41)
--- NOTE | 2018-08-10 11:26 | Discharge Summary ---
- NOTES TO OUTPATIENT PROVIDER Notes to Outpatient Provider: Will need follow-up chest CT in about 6 weeks for complete resolution. Orders not resulted at time of discharge: Pending orders 08/08/18 13:58 Culture,Blood [BC] Stat Date of Encounter: 08/10/18 Time of Encounter: 10:20 - Discharge Diagnosis (1) Abnormal CXR Priority: Primary Status: Acute (2) Fall Priority: Primary Status: Acute Qualifiers: Encounter type: initial encounter Qualified Code(s): W19.XXXA - Unspecified fall, initial encounter (3) Anxiety Priority: Secondary Status: Acute (4) COPD (chronic obstructive pulmonary disease) Priority: Secondary Status: Chronic Qualifiers: COPD type: emphysema Emphysema type: unspecified Qualified Code(s): J43.9 - Emphysema, unspecified (5) Chronic respiratory failure Priority: Secondary Status: Chronic Qualifiers: Respiratory failure complication: hypoxia Qualified Code(s): J96.11 - Chronic respiratory failure with hypoxia (6) HTN (hypertension) Priority: Secondary Status: Chronic Qualifiers: Hypertension type: essential hypertension Qualified Code(s): I10 - Essential (primary) hypertension (7) Paroxysmal A-fib Priority: Secondary Status: Acute (8) DVT prophylaxis Priority: Secondary Status: Chronic (9) Pleural effusion, right Priority: Primary Status: Acute Hospital course: Mr. Steven is a 67 year old male with past medical history of COPD, CVA, hypertension, atrial fibrillation who was recently discharged after treatment for pneumonia and erosive duodenitis with gastritis and esophageal ulcer came in after a fall from a [facility]. Patient was found to have pleural effusion on the right and possible pulmonary contusion however patient did not fell on his right side. Patient fell on his bottom after he slipped and he was mechanical fall. Patient had CT abdomen pelvis C-spine head CT which were unremarkable. Patient was admitted under observation for further management. TTE chest was obtained to further evaluate there was small to moderate right pleural effusion. Pulmonology was consulted. No antibiotics were started initially until further workup given there were no signs of infection and imaging findings could be from resolving pneumonia. Patient initially had some plans to have thoracentesis by pulmonology however given ultrasound findings there was no safe pocket to drain by pulmonology. Patient was not in COPD exacerbation and effusion was likely thought to be parapneumonic. Patient would be discharged today to follow up outpatient with pulmonology. No further antibiotics prescribed. Patient will need follow-up imaging per pulmonology in about 6 weeks. Patient will be discharged back to SNF for further rehabilitation as recommended by physical therapy. Discharge discussed with: patient, nurse, case management, [employer] consultant - Time Spent with Patient Total time spent providing and/or coordinating discharge services: Time spent: Greater than 30 minutes (40) - Discharge Medications Prescriptions: Continued Primidone [Mysoline] 50 mg PO BID Acetaminophen [Tylenol] 500 mg PO Q6H PRN PRN Reason: Pain Theophylline Anhydrous [Curt-24] 100 mg PO DAILY Roflumilast [Daliresp] 500 mcg PO DAILY GuaiFENesin ER [Mucinex] 600 mg PO Q12H PRN PRN Reason: Cough/Congestion Sertraline [Zoloft] 50 mg PO HS Tiotropium [place] [Spiriva Respimat] 2 puff IH DAILY Lovastatin 40 mg PO HS Calcium Carbonate [Calcium] 600 mg PO BIDWM Metoprolol [Lopressor] 25 mg PO BID Simethicone [Gas Relief] 180 mg PO Q4H PRN PRN Reason: FLATULENCE GuaiFENesin Liq [Robitussin Liq] 200 mg PO Q6HR PRN PRN Reason: Cough Tramadol HCl [Ultram] 50 mg PO QID PRN PRN Reason: Mild Pain Ipratropium/Albuterol Neb [Duoneb] 3 ml IH Q4HR PRN PRN Reason: Dyspnea Potassium Chloride [K-Tab ER] 20 meq PO BIDWM Albuterol Sulfate [Proair Hfa] 2 puff PO Q4H PRN PRN Reason: COPD Diphenoxylate/Atropine [Lomotil 2.5 mg/0.025 mg] 2 each PO QID PRN PRN Reason: Diarrhea Alendronate Sodium/Vitamin D3 [Fosamax Plus D 70 mg-2,800 Iu] 1 tab PO WE Budesonide [Entocort EC] 6 mg PO DAILY Cholestyramine (with Sugar) [Cholestyramine Bulk Powder] 1 packet PO QID PRN PRN Reason: Diarrhea Fluticasone/Vilanterol [Breo Ellipta 100-25 Mcg INH] 1 puff PO DAILY Pantoprazole Sodium [Protonix] 40 mg PO BID 30 Days #60 tablet. Sucralfate [Carafate] 1 gm PO QIDAC 30 Days #180 tablet Buspirone HCl [Buspar] 15 mg PO BID Tramadol HCl [Ultram] 100 mg PO QID Hydrocodone/Acetaminophen [[place] 5-325 Tablet] 1 each PO Q6H PRN PRN Reason: Severe Pain Polyvinyl Alcohol/Povidone [Artificial Tears Drops] 1 drop BOTH EYES TID PRN PRN Reason: Dry Eyes Home Medications: Acetaminophen [Tylenol] 500 mg PO Q6H PRN 08/26/16 [History] Primidone [Mysoline] 50 mg PO BID 08/26/16 [History] Theophylline Anhydrous [Curt-24] 100 mg PO DAILY 10/04/16 [History] Roflumilast [Daliresp] 500 mcg PO DAILY 11/02/16 [History] GuaiFENesin ER [Mucinex] 600 mg PO Q12H PRN 02/28/17 [History] Calcium Carbonate [Calcium] 600 mg PO BIDWM 05/27/17 [History] Lovastatin 40 mg PO HS 05/27/17 [History] Sertraline [Zoloft] 50 mg PO HS 05/27/17 [History] Tiotropium [place] [Spiriva Respimat] 2 puff IH DAILY 05/27/17 [History] Metoprolol [Lopressor] 25 mg PO BID 06/06/17 [History] Simethicone [Gas Relief] 180 mg PO Q4H PRN 09/02/17 [History] GuaiFENesin Liq [Robitussin Liq] 200 mg PO Q6HR PRN 12/16/17 [History] Tramadol HCl [Ultram] 50 mg PO QID PRN 12/16/17 [History] Ipratropium/Albuterol Neb [Duoneb] 3 ml IH Q4HR PRN 01/10/18 [History] Albuterol Sulfate [Proair Hfa] 2 puff PO Q4H PRN 04/03/18 [History] Diphenoxylate/Atropine [Lomotil 2.5 mg/0.025 mg] 2 each PO QID PRN 04/03/18 [History] Potassium Chloride [K-Tab ER] 20 meq PO BIDWM 04/03/18 [History] Alendronate Sodium/Vitamin D3 [Fosamax Plus D 70 mg-2,800 Iu] 1 tab PO WE 07/08/18 [History] Budesonide [Entocort EC] 6 mg PO DAILY 07/08/18 [History] Cholestyramine (with Sugar) [Cholestyramine Bulk Powder] 1 packet PO QID PRN 07/08/18 [History] Fluticasone/Vilanterol [Breo Ellipta 100-25 Mcg INH] 1 puff PO DAILY 07/08/18 [History] Pantoprazole Sodium [Protonix] 40 mg PO BID 30 Days #60 tablet. 07/12/18 [Rx] Sucralfate [Carafate] 1 gm PO QIDAC 30 Days #180 tablet 07/12/18 [Rx] Buspirone HCl [Buspar] 15 mg PO BID 08/08/18 [History] Hydrocodone/Acetaminophen [[place] 5-325 Tablet] 1 each PO Q6H PRN 08/08/18 [History] Polyvinyl Alcohol/Povidone [Artificial Tears Drops] 1 drop BOTH EYES TID PRN 08/08/18 [History] Tramadol HCl [Ultram] 100 mg PO QID 08/08/18 [History] Allergies/Adverse Reactions: Allergy/AdvReac Type Severity Reaction Status Date / Time azithromycin [From Zithromax] AdvReac See Verified 07/08/18 16:55 Comments hydrochlorothiazide AdvReac Difficulty Verified 07/08/18 16:55 Breathing ibuprofen [From Motrin] AdvReac Gastrointestinal Verified 07/08/18 16:55 Upset levofloxacin [From Levaquin] AdvReac See Verified 07/08/18 16:55 Comments Date of admission: 08/08/18 15:11 Primary care physician: PCP NONE Consults: 08/08/18 16:35 Consult to Pulmonology [CONS] Routine Consulting Provider: [facility] Reason for Consult: infiltrate on CXR Call Completed: Yes 08/08/18 16:41 Consult to [employer] [facility] [CONS] Routine Reason for SW Consult: d/c plannining; from signature 08/08/18 17:07 Consult to Physical Therapy [CONS] Routine Comment: Evaluate, develop and implement POC Reason for Consult: fall, improve mobility Does patient have active BEDREST order?: No Is patient medically & hemodynamically stable?: Yes Discharging clinician: Parvin Snow - Constitutional Vitals: Temp Pulse Resp BP Pulse Ox 98.0 F 60 18 137/80 96 08/10/18 07:18 08/10/18 07:18 08/10/18 07:55 08/10/18 07:18 08/10/18 07:55 Exam: General: In no acute distress. Respiratory exam: No accessory muscle use. Mild crackles at base. decreased air entry bilaterally Cardiovascular exam: RRR, +S1, +S2. no murmur, gallop, rubs. GI/Abdominal exam: Non-tender, Non-distended, normal bowel sounds, soft, no peritoneal signs. Extremities exam: no pedal edema, pulses palpable in b/l lower extremities. no calf tenderness Neurological exam: CN II-XII intact, AO X3, no focal deficits. Skin exam: hyperpigmented rash on Lt LE - Patient Status Disposition: Transfer SNF Condition: Fair - Discharge Instructions Follow Up With: NONE,PCP [Primary Care Provider] - - Diet and Activity Activity: as per physical therapy
[2018-08-10 11:34] VITALS: BP 113/64
--- NOTE | 2018-08-10 12:02 | Physician Discharge Referral ---
ExtendedCare Referral Info Institutional Level of Care: Skilled - Diagnosis (1) Abnormal CXR Status: Acute (2) Fall Status: Acute (3) Anxiety Status: Acute (4) COPD (chronic obstructive pulmonary disease) Status: Chronic (5) Chronic respiratory failure Status: Chronic (6) HTN (hypertension) Status: Chronic (7) Paroxysmal A-fib Status: Acute (8) DVT prophylaxis Status: Chronic (9) Pleural effusion, right Status: Acute - Transfer Medications Home Medications: Acetaminophen [Tylenol] 500 mg PO Q6H PRN 08/26/16 [History] Primidone [Mysoline] 50 mg PO BID 08/26/16 [History] Theophylline Anhydrous [Curt-24] 100 mg PO DAILY 10/04/16 [History] Roflumilast [Daliresp] 500 mcg PO DAILY 11/02/16 [History] GuaiFENesin ER [Mucinex] 600 mg PO Q12H PRN 02/28/17 [History] Calcium Carbonate [Calcium] 600 mg PO BIDWM 05/27/17 [History] Lovastatin 40 mg PO HS 05/27/17 [History] Sertraline [Zoloft] 50 mg PO HS 05/27/17 [History] Tiotropium [place] [Spiriva Respimat] 2 puff IH DAILY 05/27/17 [History] Metoprolol [Lopressor] 25 mg PO BID 06/06/17 [History] Simethicone [Gas Relief] 180 mg PO Q4H PRN 09/02/17 [History] GuaiFENesin Liq [Robitussin Liq] 200 mg PO Q6HR PRN 12/16/17 [History] Tramadol HCl [Ultram] 50 mg PO QID PRN 12/16/17 [History] Ipratropium/Albuterol Neb [Duoneb] 3 ml IH Q4HR PRN 01/10/18 [History] Albuterol Sulfate [Proair Hfa] 2 puff PO Q4H PRN 04/03/18 [History] Diphenoxylate/Atropine [Lomotil 2.5 mg/0.025 mg] 2 each PO QID PRN 04/03/18 [History] Potassium Chloride [K-Tab ER] 20 meq PO BIDWM 04/03/18 [History] Alendronate Sodium/Vitamin D3 [Fosamax Plus D 70 mg-2,800 Iu] 1 tab PO WE 07/08/18 [History] Budesonide [Entocort EC] 6 mg PO DAILY 07/08/18 [History] Cholestyramine (with Sugar) [Cholestyramine Bulk Powder] 1 packet PO QID PRN 07/08/18 [History] Fluticasone/Vilanterol [Breo Ellipta 100-25 Mcg INH] 1 puff PO DAILY 07/08/18 [History] Pantoprazole Sodium [Protonix] 40 mg PO BID 30 Days #60 tablet. 07/12/18 [Rx] Sucralfate [Carafate] 1 gm PO QIDAC 30 Days #180 tablet 07/12/18 [Rx] Buspirone HCl [Buspar] 15 mg PO BID 08/08/18 [History] Hydrocodone/Acetaminophen [[place] 5-325 Tablet] 1 each PO Q6H PRN 08/08/18 [History] Polyvinyl Alcohol/Povidone [Artificial Tears Drops] 1 drop BOTH EYES TID PRN 08/08/18 [History] Tramadol HCl [Ultram] 100 mg PO QID 08/08/18 [History] Allergies/Adverse Reactions: Allergy/AdvReac Type Severity Reaction Status Date / Time azithromycin [From Zithromax] AdvReac See Verified 07/08/18 16:55 Comments hydrochlorothiazide AdvReac Difficulty Verified 07/08/18 16:55 Breathing ibuprofen [From Motrin] AdvReac Gastrointestinal Verified 07/08/18 16:55 Upset levofloxacin [From Levaquin] AdvReac See Verified 07/08/18 16:55 Comments - Respiratory Orders Smoking Cessation: Smoking cessation has been advised. For more information, call the [place] Tobacco Quit Line at 0-315-XQNU-NOW. CERTIFICATION: I certify that the transfer of the above named patient to an Extended Care Facility is necessary for the continuing treatment of the diagnosis listed. The above information is true and accurate reflection of patient's current condition. Confidential - Redisclosure prohibited without a patient's written consent.
== END 2018-08-10 14:10 ==
LOC: 2ANU 10:56 → EMEROOARM 10:56 → SUATTDRO 15:11 → 2ANU 15:53
PROVIDERS: ADMIT Internal Medicine Nephrology; ATTEND Internal Medicine

== ENCOUNTER 2019-03-06 07:37 | Inpatient (IN) ==
[2019-03-06] MEDS ORDERED: Isovue-370 500 ML BOTTLE IVP ONE (08:32)
[2019-03-06 09:01] LABS: Basophils # 0.1 K/mcL (0.0-0.2); Basophils % 0.7 %; Eosinophils # 0.1 K/mcL (0.0-0.6); Eosinophils % 1.8 %; Hematocrit 44.9 % (37.5-50.1); Hemoglobin 14.1 g/dL (12.9-16.9); Immature Granulocytes % 0.3 % (0-4); Lymphocytes # 0.7 K/mcL (0.6-4.6); Lymphocytes % 9.5 %; Mean Corpuscular HGB Conc 31.4 g/dL (31.6-35.5); Mean Corpuscular Hemoglobin 27.9 pg (28.0-33.3); Mean Corpuscular Volume 88.9 fL (83.0-100.0); Mean Platelet Volume 9.5 fL (9.4-12.4); Monocytes # 0.7 K/mcL (0.0-1.3); Monocytes % 9.5 %; Platelet Count 263 K/mcL (140-400); Red Blood Count 5.05 M/mcL (4.19-5.50); Red Cell Distribution Width 14.9 % (11.5-14.5); Segmented Neutrophils % 78.2 %; White Blood Count 7.7 K/mcL (4.3-11.1)
[2019-03-06 09:24] LABS: BUN/Creatinine Ratio 17 (6-26); Blood Urea Nitrogen 16 mg/dL (8-23); Calcium 8.5 mg/dL (8.6-10.3); Carbon Dioxide 31 mEq/L (23-29); Chloride 98 mEq/L (98-107); Glucose 101 mg/dL (70-105); Osmolality,Calculated 293 (280-300); Potassium 4.5 mEq/L (3.5-5.1); Sodium 141 mEq/L (136-145); Troponin I < 0.03 ng/mL (< 0.04); eGFR For African Americans > 60 (> 60); eGFR For Non-African Americans > 60 (> 60)
[2019-03-06 09:31] LABS: Bilirubin,Urine Negative (Negative); Blood,Urine Negative (Negative); Clarity,Urine Clear (Clear); Color,Urine Yellow (Yellow); Glucose,Urine (UA) Normal (Normal); Ketones,Urine Negative (Negative); Leukocyte Esterase,Urine Negative (Negative); Nitrite,Urine Negative (Negative); PH,Urine 5.5 pH Units (5.0-8.0); Protein,Urine Negative (Neg-Trace); Specific Gravity,Urine 1.021 (1.010-1.025); Urobilinogen,Urine Normal (Normal)
[2019-03-06] MEDS ORDERED: Doxycycline 100 MG in 0.9 % Sodium Chloride Mini Bag 100 ML IVPB ONE (13:27)
[2019-03-06] MEDS ORDERED: cefTRIAXone 1,000 MG in 0.9 % Sodium Chloride Mini Bag 100 ML IVPB ONE (13:27)
[2019-03-06] MEDS ORDERED: Naloxone 0.4 MG/ML INJ IVP PRN (13:38)
[2019-03-06] MEDS ORDERED: Acetaminophen 325 MG TABLET PO PRN (13:38)
[2019-03-06] MEDS ORDERED: Ipratropium/Albuterol Neb 3 ML IH SCH (16:00)
[2019-03-06] MEDS: Piperacillin/Tazobactam 3.375 GM in 0.9 % Sodium Chloride Mini Bag 100 ML IVPB SCH ×2 (16:03→23:25)
[2019-03-06] MEDS: MethylPREDNISolone 40 MG/ML VIAL IVP SCH (17:57)
[2019-03-06] MEDS: *HR* Heparin 5,000 UNIT/ML VIAL SQ SCH (17:57)
[2019-03-06] MEDS: Ipratropium Neb 0.5 MG NEBULIZER IH SCH (19:59)
[2019-03-06 21:45] LABS: Adenovirus Not Detected (Not Detect); Bordetella Pertussis Not Detected (Not Detect); Chlamydophila pneumoniae Not Detected (Not Detect); Coronavirus 229E Not Detected (Not Detect); Coronavirus HKU1 Not Detected (Not Detect); Coronavirus NL63 Not Detected (Not Detect); Coronavirus OC43 Not Detected (Not Detect); Human Metapneumovirus Not Detected (Not Detect); Human Rhinovirus/Enterovirus Not Detected (Not Detect); Influenza A Subtype 2009 H1 Not Detected (Not Detect); Influenza A Untypeable Not Detected (Not Detect); Influenza B Not Detected (Not Detect); Mycoplasma pneumoniae Not Detected (Not Detect); Parainfluenza Virus 1 Not Detected (Not Detect); Parainfluenza Virus 2 Not Detected (Not Detect); Parainfluenza Virus 3 Not Detected (Not Detect); Parainfluenza Virus 4 Not Detected (Not Detect); Respiratory Syncytial Virus Not Detected (Not Detect)
[2019-03-07] MEDS: Ipratropium Neb 0.5 MG NEBULIZER IH SCH ×5 (00:44→22:35)
[2019-03-07 04:32] LABS: Basophils % 0.5 %; Hematocrit 41.1 % (37.5-50.1); Hemoglobin 12.8 g/dL (12.9-16.9); INR 1.2; Immature Granulocytes % 0.2 % (0-4); Lymphocytes # 0.5 K/mcL (0.6-4.6); Lymphocytes % 11.3 %; Mean Corpuscular HGB Conc 31.1 g/dL (31.6-35.5); Mean Corpuscular Hemoglobin 27.7 pg (28.0-33.3); Mean Platelet Volume 10.2 fL (9.4-12.4); Monocytes # 0.3 K/mcL (0.0-1.3); Monocytes % 7.6 %; Neutrophils # 3.3 K/mcL (1.6-8.9); Platelet Count 245 K/mcL (140-400); Prothrombin Time 13.4 Seconds (9.4-12.1); Red Blood Count 4.62 M/mcL (4.19-5.50); Red Cell Distribution Width 14.8 % (11.5-14.5); Segmented Neutrophils % 80.4 %; White Blood Count 4.1 K/mcL (4.3-11.1)
[2019-03-07 04:35] LABS: Activated Partial Thrombo Time 28.9 Seconds (26.0-36.0)
[2019-03-07 04:56] LABS: BUN/Creatinine Ratio 18 (6-26); Blood Urea Nitrogen 20 mg/dL (8-23); Calcium 8.8 mg/dL (8.6-10.3); Carbon Dioxide 29 mEq/L (23-29); Chloride 100 mEq/L (98-107); Glucose 168 mg/dL (70-105); Osmolality,Calculated 294 (280-300); Phosphorous 3.6 mg/dL (2.7-4.5); Potassium 4.5 mEq/L (3.5-5.1); Sodium 139 mEq/L (136-145); eGFR For African Americans > 60 (> 60); eGFR For Non-African Americans > 60 (> 60)
[2019-03-07] MEDS: *HR* Heparin 5,000 UNIT/ML VIAL SQ SCH ×2 (06:01→16:23)
[2019-03-07] MEDS: MethylPREDNISolone 40 MG/ML VIAL IVP SCH ×2 (06:02→16:23)
[2019-03-07] MEDS: Piperacillin/Tazobactam 3.375 GM in 0.9 % Sodium Chloride Mini Bag 100 ML IVPB SCH ×2 (07:54→16:23)
[2019-03-07] MEDS ORDERED: *HR* HYDROcodone/Acet 5/325 mg TABLET PO PRN (10:26)
[2019-03-07] MEDS ORDERED: Simethicone 80 MG TAB.CHEW PO PRN (15:05)
[2019-03-07] MEDS ORDERED: Cholestyramine 4 GM POWD.PACK PO PRN (15:05)
[2019-03-07] MEDS ORDERED: Ipratropium/Albuterol Neb 3 ML IH SCH (16:00)
[2019-03-07] MEDS: Sucralfate 1 GM TABLET PO SCH ×2 (16:23→20:07)
[2019-03-07] MEDS ORDERED: Budesonide Neb 0.5 MG/2 ML IH SCH (21:00)
[2019-03-07] MEDS ORDERED: Budesonide/Formoterol 160/4.5 1 PUFF INH IH SCH (22:00)
[2019-03-07] MEDS: Budesonide Neb 0.5 MG/2 ML IH SCH (22:35)
[2019-03-08] MEDS: Piperacillin/Tazobactam 3.375 GM in 0.9 % Sodium Chloride Mini Bag 100 ML IVPB SCH ×3 (00:24→16:35)
[2019-03-08] MEDS: Ipratropium Neb 0.5 MG NEBULIZER IH SCH ×4 (03:22→22:08)
[2019-03-08] MEDS: *HR* Heparin 5,000 UNIT/ML VIAL SQ SCH ×2 (05:59→16:35)
[2019-03-08] MEDS: Sucralfate 1 GM TABLET PO SCH ×4 (06:02→22:13)
[2019-03-08 06:07] LABS: Hematocrit 37.9 % (37.5-50.1); Hemoglobin 11.4 g/dL (12.9-16.9); Mean Corpuscular HGB Conc 30.1 g/dL (31.6-35.5); Mean Corpuscular Volume 93.1 fL (83.0-100.0); Platelet Count 218 K/mcL (140-400); Red Blood Count 4.07 M/mcL (4.19-5.50)
[2019-03-08 06:10] LABS: White Blood Count 7.1 K/mcL (4.3-11.1)
[2019-03-08 06:55] LABS: BUN/Creatinine Ratio 17 (6-26); Blood Urea Nitrogen 16 mg/dL (8-23); Calcium 8.5 mg/dL (8.6-10.3); Carbon Dioxide 31 mEq/L (23-29); Chloride 102 mEq/L (98-107); Glucose 102 mg/dL (70-105); Osmolality,Calculated 293 (280-300); Potassium 4.5 mEq/L (3.5-5.1); Sodium 141 mEq/L (136-145); eGFR For African Americans > 60 (> 60); eGFR For Non-African Americans > 60 (> 60)
[2019-03-08] MEDS ORDERED: NON-FORMULARY MEDICATION 1 EACH EACH (Tiotropium Br/Olodaterol Hcl [Stiolto Respimat Inhal IH SCH (09:00)
[2019-03-08] MEDS: predniSONE 20 MG TABLET PO SCH (09:12)
[2019-03-08] MEDS: Budesonide Neb 0.5 MG/2 ML IH SCH ×2 (10:21→22:08)
[2019-03-09] MEDS: Piperacillin/Tazobactam 3.375 GM in 0.9 % Sodium Chloride Mini Bag 100 ML IVPB SCH ×3 (00:25→16:30)
[2019-03-09] MEDS: Ipratropium Neb 0.5 MG NEBULIZER IH SCH ×4 (04:06→21:20)
[2019-03-09] MEDS: *HR* Heparin 5,000 UNIT/ML VIAL SQ SCH ×2 (06:20→16:29)
[2019-03-09 08:03] LABS: Hematocrit 37.6 % (37.5-50.1); Hemoglobin 11.4 g/dL (12.9-16.9); Mean Corpuscular HGB Conc 30.3 g/dL (31.6-35.5); Mean Corpuscular Hemoglobin 28.4 pg (28.0-33.3); Mean Corpuscular Volume 93.5 fL (83.0-100.0); Mean Platelet Volume 10.4 fL (9.4-12.4); Platelet Count 203 K/mcL (140-400); Red Blood Count 4.02 M/mcL (4.19-5.50); Red Cell Distribution Width 15.3 % (11.5-14.5)
[2019-03-09 08:19] LABS: BUN/Creatinine Ratio 14 (6-26); Blood Urea Nitrogen 13 mg/dL (8-23); Calcium 8.5 mg/dL (8.6-10.3); Carbon Dioxide 32 mEq/L (23-29); Chloride 102 mEq/L (98-107); Glucose 110 mg/dL (70-105); Osmolality,Calculated 295 (280-300); Potassium 4.5 mEq/L (3.5-5.1); Sodium 142 mEq/L (136-145); eGFR For African Americans > 60 (> 60); eGFR For Non-African Americans > 60 (> 60)
[2019-03-09] MEDS: Sucralfate 1 GM TABLET PO SCH ×4 (08:35→21:10)
[2019-03-09] MEDS: predniSONE 20 MG TABLET PO SCH (08:36)
[2019-03-09] MEDS: Budesonide Neb 0.5 MG/2 ML IH SCH ×2 (10:29→21:20)
[2019-03-10] MEDS: Piperacillin/Tazobactam 3.375 GM in 0.9 % Sodium Chloride Mini Bag 100 ML IVPB SCH ×3 (00:20→17:01)
[2019-03-10] MEDS: Ipratropium Neb 0.5 MG NEBULIZER IH SCH ×4 (05:10→22:06)
[2019-03-10] MEDS: *HR* Heparin 5,000 UNIT/ML VIAL SQ SCH ×2 (06:45→17:07)
[2019-03-10] MEDS: predniSONE 20 MG TABLET PO SCH (08:06)
[2019-03-10] MEDS: Sucralfate 1 GM TABLET PO SCH ×4 (08:07→21:11)
[2019-03-10] MEDS: Budesonide Neb 0.5 MG/2 ML IH SCH ×2 (10:26→22:06)
[2019-03-11] MEDS: Piperacillin/Tazobactam 3.375 GM in 0.9 % Sodium Chloride Mini Bag 100 ML IVPB SCH ×3 (00:50→15:35)
[2019-03-11] MEDS: Ipratropium Neb 0.5 MG NEBULIZER IH SCH ×4 (03:18→23:06)
[2019-03-11] MEDS: *HR* Heparin 5,000 UNIT/ML VIAL SQ SCH ×2 (04:57→16:56)
[2019-03-11 07:35] LABS: Hematocrit 40.7 % (37.5-50.1); Hemoglobin 12.1 g/dL (12.9-16.9); Mean Corpuscular HGB Conc 29.7 g/dL (31.6-35.5); Mean Corpuscular Hemoglobin 28.1 pg (28.0-33.3); Mean Corpuscular Volume 94.7 fL (83.0-100.0); Mean Platelet Volume 10.6 fL (9.4-12.4); Platelet Count 190 K/mcL (140-400); Red Cell Distribution Width 15.7 % (11.5-14.5); White Blood Count 6.9 K/mcL (4.3-11.1)
[2019-03-11] MEDS: predniSONE 20 MG TABLET PO SCH (08:31)
[2019-03-11] MEDS: Sucralfate 1 GM TABLET PO SCH ×4 (08:32→20:03)
[2019-03-11 08:59] LABS: Blood Urea Nitrogen 13 mg/dL (8-23); Calcium 8.5 mg/dL (8.6-10.3); Carbon Dioxide 32 mEq/L (23-29); Chloride 103 mEq/L (98-107); Glucose 114 mg/dL (70-105); Osmolality,Calculated 293 (280-300); Potassium 4.7 mEq/L (3.5-5.1); Sodium 141 mEq/L (136-145)
[2019-03-11] MEDS: Budesonide Neb 0.5 MG/2 ML IH SCH ×2 (09:48→23:06)
[2019-03-11 10:07] LABS: BUN/Creatinine Ratio 13 (6-26); eGFR For African Americans > 60 (> 60); eGFR For Non-African Americans > 60 (> 60)
[2019-03-12] MEDS: Piperacillin/Tazobactam 3.375 GM in 0.9 % Sodium Chloride Mini Bag 100 ML IVPB SCH ×2 (01:25→08:47)
[2019-03-12] MEDS: Ipratropium Neb 0.5 MG NEBULIZER IH SCH ×2 (03:59→09:50)
[2019-03-12] MEDS: predniSONE 20 MG TABLET PO SCH (08:45)
[2019-03-12] MEDS: Sucralfate 1 GM TABLET PO SCH ×2 (08:45→11:02)
[2019-03-12] MEDS: *HR* Heparin 5,000 UNIT/ML VIAL SQ SCH (08:47)
[2019-03-12] MEDS: Budesonide Neb 0.5 MG/2 ML IH SCH (09:50)
[2019-03-12 11:28] VITALS: BP 138/80
== END 2019-03-12 13:06 | DRG 178 ==
LOC: EMEROOARM 07:37 → 2ANU 07:37 → SUATTDRO 13:45 → 2ANU 14:30
PROVIDERS: ADMIT Internal Medicine; ATTEND Internal Medicine

== ENCOUNTER 2019-08-20 17:12 | Inpatient (IN) ==
[2019-08-20 17:37] LABS: Basophils # 0.1 K/mcL (0.0-0.2); Basophils % 0.4 %; Hematocrit 41.6 % (37.5-50.1); Hemoglobin 12.5 g/dL (12.9-16.9); Immature Granulocytes % 0.4 % (0-4); Lymphocytes # 0.5 K/mcL (0.6-4.6); Lymphocytes % 3.8 %; Mean Corpuscular Hemoglobin 27.1 pg (28.0-33.3); Mean Platelet Volume 9.9 fL (9.4-12.4); Monocytes # 0.8 K/mcL (0.0-1.3); Monocytes % 6.6 %; Neutrophils # 10.7 K/mcL (1.6-8.9); Platelet Count 322 K/mcL (140-400); Red Blood Count 4.62 M/mcL (4.19-5.50); Red Cell Distribution Width 13.9 % (11.5-14.5); Segmented Neutrophils % 88.8 %; White Blood Count 12.1 K/mcL (4.3-11.1)
[2019-08-20] MEDS ORDERED: Ipratropium/Albuterol Neb 3 ML IH ONE (17:52)
[2019-08-20] MEDS ORDERED: *HR* FentaNYL (PF) 100 MCG/2 ML VIAL IVP ONE (17:52)
[2019-08-20] MEDS ORDERED: methylPREDNISolone 125 MG/2 ML VIAL IVP ONE (17:52)
[2019-08-20 17:57] LABS: BUN/Creatinine Ratio 16 (6-26); Blood Urea Nitrogen 14 mg/dL (8-23); Calcium 9.1 mg/dL (8.6-10.3); Carbon Dioxide 30 mEq/L (23-29); Chloride 99 mEq/L (98-107); Glucose 119 mg/dL (70-105); Osmolality,Calculated 282 (280-300); Potassium 5.5 mEq/L (3.5-5.1); Sodium 135 mEq/L (136-145); Troponin I < 0.03 ng/mL (< 0.04); eGFR For African Americans > 60 (> 60); eGFR For Non-African Americans > 60 (> 60)
[2019-08-20] MEDS ORDERED: Ipratropium/Albuterol Neb 3 ML ONE (18:06)
[2019-08-20] MEDS ORDERED: Doxycycline 100 MG CAPSULE PO STA (19:12)
[2019-08-21] MEDS ORDERED: Naloxone 0.4 MG/ML INJ IVP PRN (01:05)
[2019-08-21] MEDS ORDERED: Acetaminophen IV 1,000 MG/100 ML INFUS..BTL IVPB ONE (01:05)
[2019-08-21] MEDS ORDERED: Albuterol 2.5 MG/3 ML NEBULIZER IH PRN (01:05)
[2019-08-21] MEDS ORDERED: Levalbuterol 1 PUFF INHALER IH PRN (01:08)
[2019-08-21] MEDS ORDERED: Ipratropium/Albuterol Neb 3 ML IH SCH (01:15)
[2019-08-21] MEDS ORDERED: 0.9 % Sodium Chloride 1,000 ML IVC SCH (01:15)
[2019-08-21] MEDS ORDERED: Calcium Gluconate 1gm/50mL 1 GM/50 ML BAG IVPB ONE (01:30)
[2019-08-21 03:24] LABS: Basophils % 0.1 %; Hematocrit 36.9 % (37.5-50.1); Hemoglobin 11.2 g/dL (12.9-16.9); Immature Granulocytes % 0.3 % (0-4); Lymphocytes # 0.3 K/mcL (0.6-4.6); Lymphocytes % 4.1 %; Mean Corpuscular HGB Conc 30.4 g/dL (31.6-35.5); Mean Corpuscular Hemoglobin 27.4 pg (28.0-33.3); Mean Corpuscular Volume 90.2 fL (83.0-100.0); Mean Platelet Volume 9.8 fL (9.4-12.4); Monocytes # 0.2 K/mcL (0.0-1.3); Monocytes % 3.2 %; Neutrophils # 6.4 K/mcL (1.6-8.9); Platelet Count 283 K/mcL (140-400); Red Blood Count 4.09 M/mcL (4.19-5.50); Red Cell Distribution Width 14.1 % (11.5-14.5); Segmented Neutrophils % 92.3 %; White Blood Count 6.9 K/mcL (4.3-11.1)
[2019-08-21 03:41] LABS: Alanine Aminotransferase 26 Units/L (7-52); Albumin 3.1 g/dL (3.5-5.7); Albumin/Globulin Ratio 0.9 (1.1-2.2); Alkaline Phosphatase 75 Units/L (34-104); Aspartate Amino Transferase 19 Units/L (13-39); BUN/Creatinine Ratio 19 (6-26); Bilirubin,Total 0.3 mg/dL (0.3-1.0); Blood Urea Nitrogen 18 mg/dL (8-23); Calcium 8.7 mg/dL (8.6-10.3); Carbon Dioxide 25 mEq/L (23-29); Chloride 98 mEq/L (98-107); Chol/HDL Ratio 3.3 (0-4.9); Cholesterol 126 mg/dL (< 200); Globulin 3.5 g/dL (2.4-3.5); Glucose 182 mg/dL (70-105); HDL Cholesterol 38 mg/dL (40-59); LDL Cholesterol,Calculated 78 mg/dL (0-99); Magnesium 1.9 mg/dL (1.6-2.6); Osmolality,Calculated 283 (280-300); Phosphorous 3.8 mg/dL (2.7-4.5); Potassium 4.4 mEq/L (3.5-5.1); Sodium 133 mEq/L (136-145); Total Protein 6.6 g/dL (6.4-8.9); Triglycerides 48 mg/dL (< 150); Troponin I < 0.03 ng/mL (< 0.04); eGFR For African Americans > 60 (> 60); eGFR For Non-African Americans > 60 (> 60)
[2019-08-21] MEDS: *HR* Heparin 5,000 UNIT/ML VIAL SQ SCH ×2 (06:28→18:15)
[2019-08-21 07:11] LABS: Bilirubin,Urine Negative (Negative); Blood,Urine Negative (Negative); Clarity,Urine Clear (Clear); Color,Urine Yellow (Yellow); Glucose,Urine (UA) Normal (Normal); Ketones,Urine Negative (Negative); Leukocyte Esterase,Urine Negative (Negative); Nitrite,Urine Negative (Negative); PH,Urine 5.5 pH Units (5.0-8.0); Protein,Urine Negative (Neg-Trace); Specific Gravity,Urine > 1.030 (1.010-1.025); Urobilinogen,Urine Normal (Normal)
[2019-08-21 08:06] LABS: Estimated Average Glucose 117 mg/dl
[2019-08-21] MEDS ORDERED: Doxycycline 100 MG CAPSULE PO SCH (09:00)
[2019-08-21] MEDS: predniSONE 20 MG TABLET PO SCH (09:11)
[2019-08-21] MEDS ORDERED: Ipratropium/Albuterol Neb 3 ML IH PRN (14:57)
[2019-08-21] MEDS ORDERED: Acetaminophen 325 MG TABLET PO PRN (14:57)
[2019-08-21] MEDS: Sucralfate 1 GM TABLET PO SCH ×2 (18:14→21:08)
[2019-08-21] MEDS: Doxycycline 100 MG CAPSULE PO SCH (18:14)
[2019-08-21] MEDS: Primidone 50 MG TABLET PO SCH (21:09)
[2019-08-22] MEDS: Sucralfate 1 GM TABLET PO SCH ×4 (05:46→21:23)
[2019-08-22] MEDS: *HR* Heparin 5,000 UNIT/ML VIAL SQ SCH ×2 (05:46→17:22)
[2019-08-22] MEDS: Doxycycline 100 MG CAPSULE PO SCH (05:46)
[2019-08-22] MEDS: predniSONE 20 MG TABLET PO SCH (08:45)
[2019-08-22] MEDS: Primidone 50 MG TABLET PO SCH ×2 (08:49→21:22)
[2019-08-22] MEDS: Ipratropium/Albuterol Neb 3 ML IH SCH ×2 (15:30→22:28)
[2019-08-22] MEDS ORDERED: Isovue-370 500 ML BOTTLE IVP ONE (20:06)
[2019-08-23] MEDS: Ipratropium/Albuterol Neb 3 ML IH SCH ×4 (04:08→21:21)
[2019-08-23] MEDS: *HR* Heparin 5,000 UNIT/ML VIAL SQ SCH ×2 (05:45→17:03)
[2019-08-23 07:34] LABS: Hematocrit 33.6 % (37.5-50.1); Mean Corpuscular HGB Conc 29.8 g/dL (31.6-35.5); Mean Corpuscular Hemoglobin 27.6 pg (28.0-33.3); Mean Corpuscular Volume 92.8 fL (83.0-100.0); Mean Platelet Volume 10.3 fL (9.4-12.4); Platelet Count 267 K/mcL (140-400); Red Blood Count 3.62 M/mcL (4.19-5.50); Red Cell Distribution Width 14.5 % (11.5-14.5); White Blood Count 5.8 K/mcL (4.3-11.1)
[2019-08-23 07:55] LABS: BUN/Creatinine Ratio 29 (6-26); Blood Urea Nitrogen 23 mg/dL (8-23); Calcium 7.9 mg/dL (8.6-10.3); Carbon Dioxide 30 mEq/L (23-29); Chloride 106 mEq/L (98-107); Glucose 93 mg/dL (70-105); Osmolality,Calculated 293 (280-300); Potassium 3.6 mEq/L (3.5-5.1); Sodium 140 mEq/L (136-145); eGFR For African Americans > 60 (> 60); eGFR For Non-African Americans > 60 (> 60)
[2019-08-23] MEDS: Sucralfate 1 GM TABLET PO SCH ×4 (08:58→21:11)
[2019-08-23] MEDS: predniSONE 20 MG TABLET PO SCH (08:58)
[2019-08-23] MEDS: Primidone 50 MG TABLET PO SCH ×2 (08:59→21:11)
[2019-08-24 02:11] LABS: Hemoglobin 10.1 g/dL (12.9-16.9); Mean Corpuscular HGB Conc 29.7 g/dL (31.6-35.5); Mean Corpuscular Hemoglobin 27.4 pg (28.0-33.3); Mean Corpuscular Volume 92.1 fL (83.0-100.0); Mean Platelet Volume 9.8 fL (9.4-12.4); Platelet Count 264 K/mcL (140-400); Red Blood Count 3.69 M/mcL (4.19-5.50); Red Cell Distribution Width 14.5 % (11.5-14.5); White Blood Count 5.4 K/mcL (4.3-11.1)
[2019-08-24 02:28] LABS: BUN/Creatinine Ratio 26 (6-26); Blood Urea Nitrogen 20 mg/dL (8-23); Calcium 8.3 mg/dL (8.6-10.3); Carbon Dioxide 29 mEq/L (23-29); Chloride 105 mEq/L (98-107); Glucose 162 mg/dL (70-105); Osmolality,Calculated 294 (280-300); Potassium 4.1 mEq/L (3.5-5.1); Sodium 139 mEq/L (136-145); eGFR For African Americans > 60 (> 60); eGFR For Non-African Americans > 60 (> 60)
[2019-08-24] MEDS: Ipratropium/Albuterol Neb 3 ML IH SCH ×3 (03:59→15:21)
[2019-08-24] MEDS: *HR* Heparin 5,000 UNIT/ML VIAL SQ SCH (05:50)
[2019-08-24 06:59] VITALS: BP 135/78
[2019-08-24] MEDS: Sucralfate 1 GM TABLET PO SCH ×2 (10:18→13:28)
[2019-08-24] MEDS: predniSONE 20 MG TABLET PO SCH (10:18)
[2019-08-24] MEDS: Primidone 50 MG TABLET PO SCH (10:18)
[2019-08-29] MEDS ORDERED: NON-FORMULARY MEDICATION 1 EACH EACH (Alendronate Sodium 70 MG) PO SCH (13:33)
== END 2019-08-24 15:22 | DRG 189 ==
LOC: 2NENU 17:12 → EMEROOARM 17:12 → 2NENU 22:27 → 3ANU 08-21 20:27
PROVIDERS: ADMIT Family Medicine; ATTEND Family Medicine

== ENCOUNTER 2019-11-29 08:54 | Inpatient (IN) ==
[2019-11-29] MEDS ORDERED: Ipratropium/Albuterol Neb 3 ML IH ONE (09:11)
[2019-11-29] MEDS ORDERED: methylPREDNISolone 125 MG/2 ML VIAL IVP ONE (09:11)
[2019-11-29 09:34] LABS: Basophils % 0.3 %; Eosinophils # 0.1 K/mcL (0.0-0.6); Eosinophils % 1.1 %; Hematocrit 42.8 % (37.5-50.1); Hemoglobin 12.8 g/dL (12.9-16.9); Immature Granulocytes % 0.6 % (0-4); Lymphocytes # 1.1 K/mcL (0.6-4.6); Lymphocytes % 10.4 %; Mean Corpuscular HGB Conc 29.9 g/dL (31.6-35.5); Mean Corpuscular Hemoglobin 27.9 pg (28.0-33.3); Mean Corpuscular Volume 93.2 fL (83.0-100.0); Mean Platelet Volume 10.9 fL (9.4-12.4); Monocytes # 0.8 K/mcL (0.0-1.3); Monocytes % 7.4 %; Neutrophils # 8.1 K/mcL (1.6-8.9); Platelet Count 161 K/mcL (140-400); Red Blood Count 4.59 M/mcL (4.19-5.50); Red Cell Distribution Width 13.8 % (11.5-14.5); Segmented Neutrophils % 80.2 %; White Blood Count 10.1 K/mcL (4.3-11.1)
[2019-11-29 09:55] LABS: BUN/Creatinine Ratio 15 (6-26); Blood Urea Nitrogen 15 mg/dL (8-23); Calcium 8.3 mg/dL (8.6-10.3); Carbon Dioxide 37 mEq/L (23-29); Chloride 100 mEq/L (98-107); Glucose 87 mg/dL (70-105); Osmolality,Calculated 288 (280-300); Potassium 4.2 mEq/L (3.5-5.1); Sodium 139 mEq/L (136-145); Troponin I 0.03 ng/mL (< 0.04); eGFR For African Americans > 60 (> 60); eGFR For Non-African Americans > 60 (> 60)
[2019-11-29 12:54] LABS: Adenovirus Not Detected (Not Detect); Coronavirus 229E Not Detected (Not Detect); Coronavirus HKU1 Not Detected (Not Detect); Coronavirus NL63 Not Detected (Not Detect); Coronavirus OC43 Not Detected (Not Detect); Human Metapneumovirus Not Detected (Not Detect); Human Rhinovirus/Enterovirus Not Detected (Not Detect); Influenza A Subtype 2009 H1 Not Detected (Not Detect); Influenza B Not Detected (Not Detect); SARS-CoV-2 Not Detected (Not Detect)
[2019-11-29 12:55] LABS: Bordetella Pertussis Not Detected (Not Detect); Chlamydophila pneumoniae Not Detected (Not Detect); Mycoplasma pneumoniae Not Detected (Not Detect); Parainfluenza Virus 1 Not Detected (Not Detect); Parainfluenza Virus 2 Not Detected (Not Detect); Parainfluenza Virus 3 Not Detected (Not Detect); Parainfluenza Virus 4 Not Detected (Not Detect); Respiratory Syncytial Virus Not Detected (Not Detect)
[2019-11-29] MEDS ORDERED: Aspirin 325 MG TABLET PO ONE (14:00)
[2019-11-29] MEDS ORDERED: Doxycycline 100 MG CAPSULE PO ONE (14:04)
[2019-11-29] MEDS ORDERED: Naloxone 0.4 MG/ML INJ IVP PRN (14:11)
[2019-11-29] MEDS ORDERED: Perflutren Lipid Microsphere 1.3 ML in 0.9 % Sodium Chloride 8.7 ML IVP PRN (14:13)
[2019-11-29] MEDS: Ipratropium/Albuterol Neb 3 ML IH SCH ×3 (15:42→23:11)
[2019-11-29] MEDS: MethylPREDNISolone 40 MG/ML VIAL IVP SCH (16:16)
[2019-11-29] MEDS: *HR* Heparin 5,000 UNIT/ML VIAL SQ SCH (16:19)
[2019-11-29] MEDS: Doxycycline 100 MG CAPSULE PO SCH (20:47)
[2019-11-30] MEDS: MethylPREDNISolone 40 MG/ML VIAL IVP SCH ×3 (00:16→17:34)
[2019-11-30 02:03] LABS: Hematocrit 38.2 % (37.5-50.1); Hemoglobin 11.5 g/dL (12.9-16.9); Immature Granulocytes % 0.4 % (0-4); Lymphocytes # 0.4 K/mcL (0.6-4.6); Lymphocytes % 4.5 %; Mean Corpuscular HGB Conc 30.1 g/dL (31.6-35.5); Mean Corpuscular Hemoglobin 28.3 pg (28.0-33.3); Mean Corpuscular Volume 93.9 fL (83.0-100.0); Mean Platelet Volume 11.1 fL (9.4-12.4); Monocytes # 0.5 K/mcL (0.0-1.3); Monocytes % 5.6 %; Neutrophils # 7.3 K/mcL (1.6-8.9); Platelet Count 176 K/mcL (140-400); Red Blood Count 4.07 M/mcL (4.19-5.50); Red Cell Distribution Width 13.8 % (11.5-14.5); Segmented Neutrophils % 89.5 %; White Blood Count 8.2 K/mcL (4.3-11.1)
[2019-11-30 02:30] LABS: BUN/Creatinine Ratio 22 (6-26); Blood Urea Nitrogen 20 mg/dL (8-23); Carbon Dioxide 33 mEq/L (23-29); Chloride 99 mEq/L (98-107); Glucose 149 mg/dL (70-105); Osmolality,Calculated 293 (280-300); Potassium 4.5 mEq/L (3.5-5.1); Sodium 139 mEq/L (136-145); eGFR For African Americans > 60 (> 60); eGFR For Non-African Americans > 60 (> 60)
[2019-11-30] MEDS: Ipratropium/Albuterol Neb 3 ML IH SCH ×6 (03:56→23:54)
[2019-11-30] MEDS: *HR* Heparin 5,000 UNIT/ML VIAL SQ SCH ×2 (05:57→17:34)
[2019-11-30] MEDS: Doxycycline 100 MG CAPSULE PO SCH (08:33)
[2019-11-30] MEDS ORDERED: CLEAR EYES NATURAL TEARS 15 ML BOTTLE BOTH EYES PRN (13:06)
[2019-11-30] MEDS ORDERED: Cholestyramine 4 GM POWD.PACK PO PRN (14:22)
[2019-11-30] MEDS: (Roflumilast [Daliresp] 500 MCG) PO SCH (15:07)
[2019-11-30] MEDS: Sucralfate 1 GM TABLET PO SCH ×2 (16:38→20:34)
[2019-11-30] MEDS: Primidone 50 MG TABLET PO SCH (20:34)
[2019-12-01 02:46] LABS: Hematocrit 38.3 % (37.5-50.1); Hemoglobin 11.2 g/dL (12.9-16.9); Mean Corpuscular HGB Conc 29.2 g/dL (31.6-35.5); Mean Corpuscular Hemoglobin 27.8 pg (28.0-33.3); Mean Platelet Volume 10.5 fL (9.4-12.4); Platelet Count 166 K/mcL (140-400); Red Blood Count 4.03 M/mcL (4.19-5.50); Red Cell Distribution Width 14.2 % (11.5-14.5); White Blood Count 8.8 K/mcL (4.3-11.1)
[2019-12-01 03:07] LABS: BUN/Creatinine Ratio 23 (6-26); Blood Urea Nitrogen 27 mg/dL (8-23); Calcium 8.1 mg/dL (8.6-10.3); Carbon Dioxide 37 mEq/L (23-29); Chloride 102 mEq/L (98-107); Glucose 128 mg/dL (70-105); Osmolality,Calculated 297 (280-300); Sodium 140 mEq/L (136-145); eGFR For African Americans > 60 (> 60); eGFR For Non-African Americans > 60 (> 60)
[2019-12-01] MEDS: Ipratropium/Albuterol Neb 3 ML IH SCH ×4 (03:57→16:06)
[2019-12-01] MEDS: MethylPREDNISolone 40 MG/ML VIAL IVP SCH (05:53)
[2019-12-01] MEDS: Sucralfate 1 GM TABLET PO SCH ×2 (05:53→10:01)
[2019-12-01] MEDS: *HR* Heparin 5,000 UNIT/ML VIAL SQ SCH (05:54)
[2019-12-01] MEDS ORDERED: OLODATEROL HCL IH SCH (09:00)
[2019-12-01] MEDS ORDERED: TIOTROPIUM BR IH SCH (09:00)
[2019-12-01] MEDS ORDERED: Cholecalciferol (D-3) 1,000 UNIT (25MCG) TABLET PO SCH (09:00)
[2019-12-01] MEDS: Primidone 50 MG TABLET PO SCH (10:01)
[2019-12-01] MEDS: (Roflumilast [Daliresp] 500 MCG) PO SCH (10:03)
[2019-12-01 11:47] VITALS: BP 137/82
[2019-12-05] MEDS ORDERED: NON-FORMULARY MEDICATION 1 EACH EACH (Alendronate Sodium 70 MG) PO SCH (14:22)
== END 2019-12-01 16:45 | disposition home or self-care (01) | DRG 191 ==
LOC: EMEROOARM 08:54 → 3BNU 08:54 → SUATTDRO 11-30 13:49
PROVIDERS: ADMIT Student in an Organized Health Care Education/Training Program; ATTEND Nurse Practitioner Adult Health

== ENCOUNTER 2019-12-14 10:38 | Inpatient (IN) ==
[2019-12-14 12:34] LABS: Troponin I 0.06 ng/mL (< 0.04)
[2019-12-14] MEDS ORDERED: Vancomycin 1,250 MG/262.5 ML IV.SOLN IVPB STA (12:35)
[2019-12-14 12:42] LABS: Fibrinogen 500 mg/dL (169-393)
[2019-12-14] MEDS ORDERED: Ondansetron 4 MG/2 ML VIAL IVP PRN (12:49)
[2019-12-14] MEDS ORDERED: Naloxone 0.4 MG/ML INJ IVP PRN (12:49)
[2019-12-14] MEDS ORDERED: Artificial Tears SOLN 15 ML BOTTLE BOTH EYES PRN (12:56)
[2019-12-14] MEDS ORDERED: Acetaminophen 325 MG TABLET PO PRN (12:56)
[2019-12-14 13:12] LABS: D-Dimer 2080 ng/mLFEU (0-500)
[2019-12-14] MEDS: Sucralfate 1 GM TABLET PO SCH ×3 (14:04→20:13)
[2019-12-14] MEDS: Dexamethasone 4 MG/ML VIAL IVP SCH (14:04)
[2019-12-14] MEDS: *HR* Enoxaparin 80 MG/0.8 ML SYRINGE SQ SCH (16:34)
[2019-12-14] MEDS ORDERED: *HR* Enoxaparin 30 MG/0.3 ML SYRINGE SQ SCH (18:00)
[2019-12-14 18:13] LABS: Adenovirus Not Detected (Not Detect); Coronavirus 229E Not Detected (Not Detect); Coronavirus HKU1 Not Detected (Not Detect); Coronavirus NL63 Not Detected (Not Detect); Coronavirus OC43 Not Detected (Not Detect)
[2019-12-14 18:14] LABS: Bordetella Pertussis Not Detected (Not Detect); Chlamydophila pneumoniae Not Detected (Not Detect); Human Metapneumovirus Not Detected (Not Detect); Human Rhinovirus/Enterovirus Not Detected (Not Detect); Influenza A Subtype 2009 H1 Not Detected (Not Detect); Influenza B Not Detected (Not Detect); Mycoplasma pneumoniae Not Detected (Not Detect); Parainfluenza Virus 1 Not Detected (Not Detect); Parainfluenza Virus 2 Not Detected (Not Detect); Parainfluenza Virus 3 Not Detected (Not Detect); Parainfluenza Virus 4 Not Detected (Not Detect); Respiratory Syncytial Virus Not Detected (Not Detect); SARS-CoV-2 DETECTED (Not Detect)
[2019-12-14] MEDS: Primidone 50 MG TABLET PO SCH (20:14)
[2019-12-15] MEDS: *HR* Enoxaparin 80 MG/0.8 ML SYRINGE SQ SCH (05:04)
[2019-12-15] MEDS: Primidone 50 MG TABLET PO SCH ×2 (10:00→19:43)
[2019-12-15] MEDS: Sucralfate 1 GM TABLET PO SCH ×4 (10:01→19:44)
[2019-12-15] MEDS: Dexamethasone 4 MG/ML VIAL IVP SCH (10:02)
[2019-12-15] MEDS: (Roflumilast [Daliresp] 500 MCG) PO SCH (10:17)
[2019-12-15 11:10] LABS: Hematocrit 44.9 % (37.5-50.1); Hemoglobin 13.5 g/dL (12.9-16.9); Immature Granulocytes % 0.2 % (0-4); Lymphocytes # 0.4 K/mcL (0.6-4.6); Lymphocytes % 8.9 %; Mean Corpuscular HGB Conc 30.1 g/dL (31.6-35.5); Mean Corpuscular Hemoglobin 27.3 pg (28.0-33.3); Mean Corpuscular Volume 90.7 fL (83.0-100.0); Mean Platelet Volume 11.1 fL (9.4-12.4); Monocytes # 0.3 K/mcL (0.0-1.3); Monocytes % 7.4 %; Neutrophils # 3.8 K/mcL (1.6-8.9); Platelet Count 155 K/mcL (140-400); Red Blood Count 4.95 M/mcL (4.19-5.50); Red Cell Distribution Width 14.1 % (11.5-14.5); Segmented Neutrophils % 83.5 %; White Blood Count 4.6 K/mcL (4.3-11.1)
[2019-12-15 11:31] LABS: Alanine Aminotransferase 31 Units/L (7-52); Alkaline Phosphatase 53 Units/L (34-104); Aspartate Amino Transferase 41 Units/L (13-39); BUN/Creatinine Ratio 25 (6-26); Bilirubin,Total 0.3 mg/dL (0.3-1.0); Blood Urea Nitrogen 24 mg/dL (8-23); Calcium 8.3 mg/dL (8.6-10.3); Carbon Dioxide 31 mEq/L (23-29); Chloride 98 mEq/L (98-107); Globulin 3.1 g/dL (2.4-3.5); Glucose 122 mg/dL (70-105); Magnesium 1.8 mg/dL (1.6-2.6); Osmolality,Calculated 289 (280-300); Potassium 4.1 mEq/L (3.5-5.1); Sodium 137 mEq/L (136-145); Total Protein 6.1 g/dL (6.4-8.9); eGFR For African Americans > 60 (> 60); eGFR For Non-African Americans > 60 (> 60)
[2019-12-15] MEDS: Levalbuterol 1 PUFF INHALER IH SCH ×3 (11:40→21:30)
[2019-12-15] MEDS ORDERED: Levalbuterol Neb 0.63 MG/3 ML IH SCH (12:00)
[2019-12-16] MEDS ORDERED: Melatonin 3 MG TABLET PO ONE (01:31)
[2019-12-16] MEDS: Levalbuterol 1 PUFF INHALER IH SCH ×4 (03:44→21:25)
[2019-12-16] MEDS: *HR* Enoxaparin 40 MG/0.4 ML SYRINGE SQ SCH (05:11)
[2019-12-16 08:25] LABS: Hematocrit 44.1 % (37.5-50.1); Hemoglobin 13.7 g/dL (12.9-16.9); Immature Granulocytes % 0.5 % (0-4); Lymphocytes # 0.6 K/mcL (0.6-4.6); Lymphocytes % 9.6 %; Mean Corpuscular HGB Conc 31.1 g/dL (31.6-35.5); Mean Corpuscular Hemoglobin 28.6 pg (28.0-33.3); Mean Corpuscular Volume 92.1 fL (83.0-100.0); Mean Platelet Volume 11.9 fL (9.4-12.4); Monocytes # 0.3 K/mcL (0.0-1.3); Monocytes % 4.5 %; Platelet Count 167 K/mcL (140-400); Red Blood Count 4.79 M/mcL (4.19-5.50); Red Cell Distribution Width 13.9 % (11.5-14.5); Segmented Neutrophils % 85.4 %; White Blood Count 5.8 K/mcL (4.3-11.1)
[2019-12-16 08:44] LABS: Alanine Aminotransferase 33 Units/L (7-52); Albumin 3.1 g/dL (3.5-5.7); Albumin/Globulin Ratio 1.1 (1.1-2.2); Alkaline Phosphatase 54 Units/L (34-104); Aspartate Amino Transferase 44 Units/L (13-39); BUN/Creatinine Ratio 27 (6-26); Bilirubin,Total 0.3 mg/dL (0.3-1.0); Blood Urea Nitrogen 26 mg/dL (8-23); Carbon Dioxide 33 mEq/L (23-29); Chloride 99 mEq/L (98-107); Globulin 2.9 g/dL (2.4-3.5); Glucose 93 mg/dL (70-105); Osmolality,Calculated 288 (280-300); Potassium 4.1 mEq/L (3.5-5.1); Sodium 137 mEq/L (136-145); eGFR For African Americans > 60 (> 60); eGFR For Non-African Americans > 60 (> 60)
[2019-12-16] MEDS: Dexamethasone 4 MG/ML VIAL IVP SCH (09:56)
[2019-12-16] MEDS: Aspirin Enteric Coated 81 MG Tablet PO SCH (09:57)
[2019-12-16] MEDS: Sucralfate 1 GM TABLET PO SCH ×4 (09:58→20:01)
[2019-12-16] MEDS: Primidone 50 MG TABLET PO SCH ×2 (09:58→20:02)
[2019-12-16] MEDS: (Roflumilast [Daliresp] 500 MCG) PO SCH (09:59)
[2019-12-16] MEDS ORDERED: Furosemide 20 MG/2 ML VIAL IVP ONE (10:20)
[2019-12-17] MEDS: Levalbuterol 1 PUFF INHALER IH SCH ×4 (03:03→21:43)
[2019-12-17] MEDS: *HR* Enoxaparin 40 MG/0.4 ML SYRINGE SQ SCH (04:55)
[2019-12-17] MEDS: (Roflumilast [Daliresp] 500 MCG) PO SCH (07:50)
[2019-12-17] MEDS: Aspirin Enteric Coated 81 MG Tablet PO SCH (08:34)
[2019-12-17] MEDS: Primidone 50 MG TABLET PO SCH ×2 (08:35→22:02)
[2019-12-17] MEDS: Dexamethasone 4 MG/ML VIAL IVP SCH (08:35)
[2019-12-17] MEDS: Sucralfate 1 GM TABLET PO SCH ×4 (08:35→22:02)
[2019-12-17] MEDS ORDERED: Furosemide 20 MG/2 ML VIAL IVP ONE (10:36)
[2019-12-17 11:28] LABS: Hematocrit 42.8 % (37.5-50.1); Hemoglobin 13.1 g/dL (12.9-16.9); Immature Granulocytes % 0.8 % (0-4); Lymphocytes # 0.3 K/mcL (0.6-4.6); Lymphocytes % 6.6 %; Mean Corpuscular HGB Conc 30.6 g/dL (31.6-35.5); Mean Corpuscular Hemoglobin 28.5 pg (28.0-33.3); Mean Corpuscular Volume 93.2 fL (83.0-100.0); Mean Platelet Volume 11.7 fL (9.4-12.4); Monocytes # 0.3 K/mcL (0.0-1.3); Monocytes % 5.3 %; Neutrophils # 4.3 K/mcL (1.6-8.9); Platelet Count 147 K/mcL (140-400); Red Blood Count 4.59 M/mcL (4.19-5.50); Red Cell Distribution Width 14.1 % (11.5-14.5); Segmented Neutrophils % 87.3 %; White Blood Count 4.9 K/mcL (4.3-11.1)
[2019-12-17 11:45] LABS: BUN/Creatinine Ratio 26 (6-26); Blood Urea Nitrogen 22 mg/dL (8-23); Calcium 7.3 mg/dL (8.6-10.3); Carbon Dioxide 31 mEq/L (23-29); Chloride 100 mEq/L (98-107); Glucose 105 mg/dL (70-105); Osmolality,Calculated 290 (280-300); Sodium 138 mEq/L (136-145); eGFR For African Americans > 60 (> 60); eGFR For Non-African Americans > 60 (> 60)
[2019-12-17] MEDS ORDERED: 0.9 % Sodium Chloride 250 ML ONE (12:34)
[2019-12-17] MEDS: Piperacillin/Tazobactam 3.375 GM in 0.9 % Sodium Chloride Mini Bag 100 ML IVPB SCH (16:05)
[2019-12-18] MEDS: Piperacillin/Tazobactam 3.375 GM in 0.9 % Sodium Chloride Mini Bag 100 ML IVPB SCH ×3 (01:06→15:47)
[2019-12-18 01:45] LABS: Basophils % 0.3 %; Hematocrit 38.1 % (37.5-50.1); Immature Granulocytes % 0.3 % (0-4); Lymphocytes # 0.3 K/mcL (0.6-4.6); Lymphocytes % 8.4 %; Mean Corpuscular HGB Conc 30.2 g/dL (31.6-35.5); Mean Corpuscular Hemoglobin 27.6 pg (28.0-33.3); Mean Corpuscular Volume 91.6 fL (83.0-100.0); Monocytes # 0.2 K/mcL (0.0-1.3); Monocytes % 6.2 %; Neutrophils # 3.1 K/mcL (1.6-8.9); Nucleated Red Blood Cells 0.5 /100 WBC (0); Platelet Count 152 K/mcL (140-400); Red Blood Count 4.16 M/mcL (4.19-5.50); Red Cell Distribution Width 13.9 % (11.5-14.5); Segmented Neutrophils % 84.8 %; White Blood Count 3.7 K/mcL (4.3-11.1)
[2019-12-18 01:46] LABS: Hemoglobin 11.5 g/dL (12.9-16.9)
[2019-12-18 02:06] LABS: Alanine Aminotransferase 31 Units/L (7-52); Albumin 2.6 g/dL (3.5-5.7); Alkaline Phosphatase 45 Units/L (34-104); Aspartate Amino Transferase 38 Units/L (13-39); BUN/Creatinine Ratio 26 (6-26); Bilirubin,Total 0.3 mg/dL (0.3-1.0); Blood Urea Nitrogen 22 mg/dL (8-23); Calcium 7.2 mg/dL (8.6-10.3); Carbon Dioxide 32 mEq/L (23-29); Chloride 101 mEq/L (98-107); Globulin 2.5 g/dL (2.4-3.5); Glucose 122 mg/dL (70-105); Osmolality,Calculated 293 (280-300); Potassium 3.8 mEq/L (3.5-5.1); Sodium 139 mEq/L (136-145); Total Protein 5.1 g/dL (6.4-8.9); eGFR For African Americans > 60 (> 60); eGFR For Non-African Americans > 60 (> 60)
[2019-12-18] MEDS: Levalbuterol 1 PUFF INHALER IH SCH ×5 (03:44→22:19)
[2019-12-18] MEDS: *HR* Enoxaparin 40 MG/0.4 ML SYRINGE SQ SCH (05:25)
[2019-12-18] MEDS ORDERED: Furosemide 40 MG/4 ML VIAL IVP ONE (07:19)
[2019-12-18] MEDS: (Roflumilast [Daliresp] 500 MCG) PO SCH (08:02)
[2019-12-18] MEDS: Primidone 50 MG TABLET PO SCH ×2 (08:15→21:17)
[2019-12-18] MEDS: Dexamethasone 4 MG/ML VIAL IVP SCH (08:15)
[2019-12-18] MEDS: Sucralfate 1 GM TABLET PO SCH ×4 (08:15→21:18)
[2019-12-18] MEDS: Aspirin Enteric Coated 81 MG Tablet PO SCH (08:15)
[2019-12-18 08:46] LABS: ABG Base Excess 5 mEq/L (-2 to 3); ABG HCO3 31 mEq/L (21-27); ABG Oxygen Saturation 83 % (95-98); ABG PCO2 45 mmHg (35-45); ABG PH 7.44 pH Units (7.32-7.45); ABG PO2 47 mmHg (85-104); ABG TCO2 32 mEq/L (20-26)
[2019-12-18 09:51] LABS: C-Reactive Protein 108 mg/L (Less than 10)
[2019-12-18] MEDS ORDERED: 0.9 % Sodium Chloride 250 ML ONE (13:44)
[2019-12-18] MEDS ORDERED: 0.9 % Sodium Chloride 1,000 ML IVC ONE (19:31)
[2019-12-18] MEDS ORDERED: 0.9 % Sodium Chloride 1,000 ML ONE (19:33)
[2019-12-19] MEDS: Piperacillin/Tazobactam 3.375 GM in 0.9 % Sodium Chloride Mini Bag 100 ML IVPB SCH ×3 (03:00→16:16)
[2019-12-19] MEDS: Levalbuterol 1 PUFF INHALER IH SCH ×4 (03:25→20:23)
[2019-12-19] MEDS: *HR* Enoxaparin 40 MG/0.4 ML SYRINGE SQ SCH (06:36)
[2019-12-19] MEDS: Primidone 50 MG TABLET PO SCH ×2 (08:11→22:32)
[2019-12-19] MEDS: Sucralfate 1 GM TABLET PO SCH ×4 (08:11→22:31)
[2019-12-19] MEDS: Dexamethasone 4 MG/ML VIAL IVP SCH (08:11)
[2019-12-19] MEDS: Aspirin Enteric Coated 81 MG Tablet PO SCH (08:11)
[2019-12-19] MEDS: (Roflumilast [Daliresp] 500 MCG) PO SCH (08:12)
[2019-12-19 13:04] LABS: Hematocrit 39.6 % (37.5-50.1); Lymphocytes # 0.3 K/mcL (0.6-4.6); Mean Corpuscular HGB Conc 30.3 g/dL (31.6-35.5); Mean Corpuscular Hemoglobin 28.4 pg (28.0-33.3); Mean Corpuscular Volume 93.6 fL (83.0-100.0); Mean Platelet Volume 11.4 fL (9.4-12.4); Platelet Count 175 K/mcL (140-400); Red Blood Count 4.23 M/mcL (4.19-5.50); Red Cell Distribution Width 13.9 % (11.5-14.5); White Blood Count 3.5 K/mcL (4.3-11.1)
[2019-12-19 13:16] LABS: BUN/Creatinine Ratio 27 (6-26); Blood Urea Nitrogen 21 mg/dL (8-23); Calcium 7.5 mg/dL (8.6-10.3); Carbon Dioxide 33 mEq/L (23-29); Chloride 103 mEq/L (98-107); Glucose 122 mg/dL (70-105); Osmolality,Calculated 292 (280-300); Potassium 3.7 mEq/L (3.5-5.1); Sodium 139 mEq/L (136-145); eGFR For African Americans > 60 (> 60); eGFR For Non-African Americans > 60 (> 60)
[2019-12-19 13:38] LABS: Monocytes # 0.3 K/mcL (0.0-1.3); Platelet Estimate Normal (Normal); Reactive Lymphocytes Present (Not Present)
[2019-12-19] MEDS ORDERED: Furosemide 40 MG/4 ML VIAL IVP ONE (14:50)
[2019-12-19] MEDS: Ipratropium 1 PUFF INHALER IH SCH ×3 (15:26→23:34)
[2019-12-19] MEDS ORDERED: 0.9 % Sodium Chloride 250 ML ONE (15:57)
[2019-12-19] MEDS: Budesonide/Formoterol 80/4.5 1 PUFF INH IH SCH (20:24)
[2019-12-20] MEDS: Piperacillin/Tazobactam 3.375 GM in 0.9 % Sodium Chloride Mini Bag 100 ML IVPB SCH ×3 (01:18→15:34)
[2019-12-20] MEDS: Ipratropium 1 PUFF INHALER IH SCH ×5 (03:58→21:48)
[2019-12-20] MEDS: Levalbuterol 1 PUFF INHALER IH SCH ×4 (03:58→21:49)
[2019-12-20 04:42] LABS: Hematocrit 39.6 % (37.5-50.1); Hemoglobin 11.7 g/dL (12.9-16.9); Mean Corpuscular HGB Conc 29.5 g/dL (31.6-35.5); Mean Corpuscular Hemoglobin 27.4 pg (28.0-33.3); Mean Corpuscular Volume 92.7 fL (83.0-100.0); Mean Platelet Volume 11.8 fL (9.4-12.4); Platelet Count 181 K/mcL (140-400); Red Blood Count 4.27 M/mcL (4.19-5.50); Red Cell Distribution Width 13.7 % (11.5-14.5)
[2019-12-20 04:58] LABS: Alanine Aminotransferase 29 Units/L (7-52); Albumin 2.7 g/dL (3.5-5.7); Albumin/Globulin Ratio 0.9 (1.1-2.2); Alkaline Phosphatase 51 Units/L (34-104); Aspartate Amino Transferase 33 Units/L (13-39); BUN/Creatinine Ratio 25 (6-26); Bilirubin,Total 0.4 mg/dL (0.3-1.0); Blood Urea Nitrogen 19 mg/dL (8-23); C-Reactive Protein 39 mg/L (Less than 10); Calcium 7.3 mg/dL (8.6-10.3); Carbon Dioxide 34 mEq/L (23-29); Chloride 101 mEq/L (98-107); Glucose 83 mg/dL (70-105); Lactate Dehydrogenase 236 Units/L (140-271); Magnesium 1.7 mg/dL (1.6-2.6); Osmolality,Calculated 295 (280-300); Phosphorous 2.1 mg/dL (2.7-4.5); Potassium 3.3 mEq/L (3.5-5.1); Sodium 142 mEq/L (136-145); Total Protein 5.7 g/dL (6.4-8.9); eGFR For African Americans > 60 (> 60); eGFR For Non-African Americans > 60 (> 60)
[2019-12-20 05:15] LABS: Ferritin 302 ng/mL (20-250)
[2019-12-20] MEDS: *HR* Enoxaparin 40 MG/0.4 ML SYRINGE SQ SCH (06:05)
[2019-12-20] MEDS: Aspirin Enteric Coated 81 MG Tablet PO SCH (08:02)
[2019-12-20] MEDS: Dexamethasone 4 MG/ML VIAL IVP SCH (08:02)
[2019-12-20] MEDS: Sucralfate 1 GM TABLET PO SCH ×4 (08:02→19:43)
[2019-12-20] MEDS: Primidone 50 MG TABLET PO SCH ×2 (08:02→19:44)
[2019-12-20] MEDS: (Roflumilast [Daliresp] 500 MCG) PO SCH (08:03)
[2019-12-20] MEDS: Budesonide/Formoterol 80/4.5 1 PUFF INH IH SCH ×2 (08:18→21:49)
[2019-12-21] MEDS: Levalbuterol 1 PUFF INHALER IH SCH ×4 (03:39→21:28)
[2019-12-21] MEDS: Ipratropium 1 PUFF INHALER IH SCH ×4 (03:40→21:27)
[2019-12-21] MEDS: Piperacillin/Tazobactam 3.375 GM in 0.9 % Sodium Chloride Mini Bag 100 ML IVPB SCH ×4 (06:06→20:03)
[2019-12-21] MEDS: *HR* Enoxaparin 40 MG/0.4 ML SYRINGE SQ SCH (06:07)
[2019-12-21 06:38] LABS: Hematocrit 38.6 % (37.5-50.1); Hemoglobin 11.6 g/dL (12.9-16.9); Mean Corpuscular HGB Conc 30.1 g/dL (31.6-35.5); Mean Corpuscular Hemoglobin 27.5 pg (28.0-33.3); Mean Corpuscular Volume 91.5 fL (83.0-100.0); Platelet Count 230 K/mcL (140-400); Red Blood Count 4.22 M/mcL (4.19-5.50); Red Cell Distribution Width 13.9 % (11.5-14.5); White Blood Count 4.2 K/mcL (4.3-11.1)
[2019-12-21 06:59] LABS: BUN/Creatinine Ratio 20 (6-26); Blood Urea Nitrogen 17 mg/dL (8-23); Calcium 7.8 mg/dL (8.6-10.3); Carbon Dioxide 32 mEq/L (23-29); Chloride 105 mEq/L (98-107); Glucose 86 mg/dL (70-105); Osmolality,Calculated 295 (280-300); Potassium 3.6 mEq/L (3.5-5.1); Sodium 142 mEq/L (136-145); eGFR For African Americans > 60 (> 60); eGFR For Non-African Americans > 60 (> 60)
[2019-12-21] MEDS: Budesonide/Formoterol 80/4.5 1 PUFF INH IH SCH ×2 (09:43→21:28)
[2019-12-21] MEDS: Dexamethasone 4 MG/ML VIAL IVP SCH ×2 (11:26→20:02)
[2019-12-21] MEDS: Sucralfate 1 GM TABLET PO SCH ×4 (11:27→20:02)
[2019-12-21] MEDS: Primidone 50 MG TABLET PO SCH ×2 (11:27→20:02)
[2019-12-21] MEDS: Furosemide 20 MG TABLET PO SCH (11:27)
[2019-12-21] MEDS: Aspirin Enteric Coated 81 MG Tablet PO SCH (11:27)
[2019-12-21] MEDS: (Roflumilast [Daliresp] 500 MCG) PO SCH (11:59)
[2019-12-21] MEDS ORDERED: Furosemide 40 MG/4 ML VIAL IVP ONE (14:00)
[2019-12-21] MEDS: *HR* Enoxaparin 80 MG/0.8 ML SYRINGE SQ SCH (17:14)
[2019-12-21 20:00] LABS: BUN/Creatinine Ratio 17 (6-26); Blood Urea Nitrogen 18 mg/dL (8-23); Calcium 8.1 mg/dL (8.6-10.3); Carbon Dioxide 35 mEq/L (23-29); Chloride 100 mEq/L (98-107); Glucose 182 mg/dL (70-105); Magnesium 1.7 mg/dL (1.6-2.6); Osmolality,Calculated 295 (280-300); Potassium 3.7 mEq/L (3.5-5.1); Sodium 139 mEq/L (136-145); eGFR For African Americans > 60 (> 60); eGFR For Non-African Americans > 60 (> 60)
[2019-12-22] MEDS: Ipratropium 1 PUFF INHALER IH SCH ×4 (03:34→21:37)
[2019-12-22] MEDS: Levalbuterol 1 PUFF INHALER IH SCH ×4 (03:34→21:39)
[2019-12-22] MEDS: Piperacillin/Tazobactam 3.375 GM in 0.9 % Sodium Chloride Mini Bag 100 ML IVPB SCH ×3 (04:43→19:53)
[2019-12-22] MEDS: *HR* Enoxaparin 80 MG/0.8 ML SYRINGE SQ SCH ×2 (04:43→16:03)
[2019-12-22 05:33] LABS: Hematocrit 38.3 % (37.5-50.1); Hemoglobin 11.3 g/dL (12.9-16.9); Mean Corpuscular HGB Conc 29.5 g/dL (31.6-35.5); Mean Corpuscular Hemoglobin 27.2 pg (28.0-33.3); Mean Corpuscular Volume 92.1 fL (83.0-100.0); Mean Platelet Volume 11.1 fL (9.4-12.4); Platelet Count 225 K/mcL (140-400); Red Blood Count 4.16 M/mcL (4.19-5.50); Red Cell Distribution Width 13.9 % (11.5-14.5); White Blood Count 3.6 K/mcL (4.3-11.1)
[2019-12-22 05:37] LABS: BUN/Creatinine Ratio 23 (6-26); Blood Urea Nitrogen 19 mg/dL (8-23); C-Reactive Protein 99 mg/L (Less than 10); Calcium 7.7 mg/dL (8.6-10.3); Carbon Dioxide 35 mEq/L (23-29); Chloride 100 mEq/L (98-107); Glucose 124 mg/dL (70-105); Lactate Dehydrogenase 183 Units/L (140-271); Magnesium 1.7 mg/dL (1.6-2.6); Osmolality,Calculated 296 (280-300); Phosphorous 3.1 mg/dL (2.7-4.5); Potassium 3.9 mEq/L (3.5-5.1); Sodium 141 mEq/L (136-145); eGFR For African Americans > 60 (> 60); eGFR For Non-African Americans > 60 (> 60)
[2019-12-22 05:55] LABS: Ferritin 228 ng/mL (20-250)
[2019-12-22] MEDS: Aspirin Enteric Coated 81 MG Tablet PO SCH (09:24)
[2019-12-22] MEDS: Sucralfate 1 GM TABLET PO SCH ×4 (09:24→19:51)
[2019-12-22] MEDS: Furosemide 20 MG TABLET PO SCH (09:25)
[2019-12-22] MEDS: Primidone 50 MG TABLET PO SCH ×2 (09:25→19:52)
[2019-12-22] MEDS: Dexamethasone 4 MG/ML VIAL IVP SCH ×2 (09:25→19:53)
[2019-12-22] MEDS: (Roflumilast [Daliresp] 500 MCG) PO SCH (09:26)
[2019-12-22] MEDS: Budesonide/Formoterol 80/4.5 1 PUFF INH IH SCH ×2 (10:47→21:37)
[2019-12-23] MEDS: Ipratropium 1 PUFF INHALER IH SCH ×4 (03:12→21:21)
[2019-12-23] MEDS: Levalbuterol 1 PUFF INHALER IH SCH ×4 (03:12→21:20)
[2019-12-23] MEDS: Piperacillin/Tazobactam 3.375 GM in 0.9 % Sodium Chloride Mini Bag 100 ML IVPB SCH ×3 (03:12→19:50)
[2019-12-23 03:52] LABS: Hematocrit 35.2 % (37.5-50.1); Hemoglobin 10.6 g/dL (12.9-16.9); Mean Corpuscular HGB Conc 30.1 g/dL (31.6-35.5); Mean Corpuscular Hemoglobin 27.4 pg (28.0-33.3); Mean Platelet Volume 11.3 fL (9.4-12.4); Platelet Count 231 K/mcL (140-400); Red Blood Count 3.87 M/mcL (4.19-5.50); Red Cell Distribution Width 13.8 % (11.5-14.5); White Blood Count 4.1 K/mcL (4.3-11.1)
[2019-12-23 04:10] LABS: BUN/Creatinine Ratio 28 (6-26); Blood Urea Nitrogen 24 mg/dL (8-23); Carbon Dioxide 34 mEq/L (23-29); Chloride 100 mEq/L (98-107); Glucose 167 mg/dL (70-105); Magnesium 1.7 mg/dL (1.6-2.6); Osmolality,Calculated 296 (280-300); Phosphorous 2.6 mg/dL (2.7-4.5); Potassium 3.5 mEq/L (3.5-5.1); Sodium 139 mEq/L (136-145); eGFR For African Americans > 60 (> 60); eGFR For Non-African Americans > 60 (> 60)
[2019-12-23] MEDS: *HR* Enoxaparin 80 MG/0.8 ML SYRINGE SQ SCH (05:38)
[2019-12-23] MEDS: Aspirin Enteric Coated 81 MG Tablet PO SCH (09:04)
[2019-12-23] MEDS: Sucralfate 1 GM TABLET PO SCH ×4 (09:06→19:53)
[2019-12-23] MEDS: Dexamethasone 4 MG/ML VIAL IVP SCH ×2 (09:06→19:52)
[2019-12-23] MEDS: Furosemide 40 MG/4 ML VIAL IVP SCH (09:07)
[2019-12-23] MEDS: (Roflumilast [Daliresp] 500 MCG) PO SCH (09:09)
[2019-12-23] MEDS: Budesonide/Formoterol 80/4.5 1 PUFF INH IH SCH ×2 (09:09→21:21)
[2019-12-23] MEDS: Primidone 50 MG TABLET PO SCH ×2 (09:09→19:51)
[2019-12-24] MEDS: Ipratropium 1 PUFF INHALER IH SCH ×3 (03:13→16:05)
[2019-12-24] MEDS: Levalbuterol 1 PUFF INHALER IH SCH ×3 (03:13→16:05)
[2019-12-24] MEDS: Piperacillin/Tazobactam 3.375 GM in 0.9 % Sodium Chloride Mini Bag 100 ML IVPB SCH ×2 (04:12→11:54)
[2019-12-24 04:55] LABS: Hematocrit 36.2 % (37.5-50.1); Hemoglobin 10.8 g/dL (12.9-16.9); Mean Corpuscular HGB Conc 29.8 g/dL (31.6-35.5); Mean Corpuscular Hemoglobin 27.8 pg (28.0-33.3); Mean Corpuscular Volume 93.3 fL (83.0-100.0); Mean Platelet Volume 11.3 fL (9.4-12.4); Platelet Count 209 K/mcL (140-400); Red Blood Count 3.88 M/mcL (4.19-5.50); Red Cell Distribution Width 13.9 % (11.5-14.5); White Blood Count 3.9 K/mcL (4.3-11.1)
[2019-12-24 05:18] LABS: % Iron Saturation 17 % (20-55); BUN/Creatinine Ratio 24 (6-26); Blood Urea Nitrogen 24 mg/dL (8-23); C-Reactive Protein 28 mg/L (Less than 10); Calcium 8.1 mg/dL (8.6-10.3); Carbon Dioxide 36 mEq/L (23-29); Chloride 99 mEq/L (98-107); Glucose 141 mg/dL (70-105); Iron 43 mcg/dL (65-175); Lactate Dehydrogenase 161 Units/L (140-271); Magnesium 1.5 mg/dL (1.6-2.6); Osmolality,Calculated 302 (280-300); Phosphorous 4.6 mg/dL (2.7-4.5); Potassium 3.7 mEq/L (3.5-5.1); Sodium 143 mEq/L (136-145); Transferrin 183 mg/dL (203-362); eGFR For African Americans > 60 (> 60); eGFR For Non-African Americans > 60 (> 60)
[2019-12-24 05:40] LABS: Folate 7.2 ng/mL (3.0-16.0)
[2019-12-24 05:44] LABS: Procalcitonin 0.09 ng/mL (0.00-0.15)
[2019-12-24] MEDS ORDERED: *HR* Enoxaparin 40 MG/0.4 ML SYRINGE SQ SCH (06:00)
[2019-12-24] MEDS: Primidone 50 MG TABLET PO SCH (09:27)
[2019-12-24] MEDS: Aspirin Enteric Coated 81 MG Tablet PO SCH (09:27)
[2019-12-24] MEDS: Sucralfate 1 GM TABLET PO SCH ×3 (09:27→16:46)
[2019-12-24] MEDS: Dexamethasone 4 MG/ML VIAL IVP SCH (09:28)
[2019-12-24] MEDS: Budesonide/Formoterol 80/4.5 1 PUFF INH IH SCH (09:46)
[2019-12-24] MEDS: Furosemide 40 MG/4 ML VIAL IVP SCH (09:50)
[2019-12-24] MEDS: (Roflumilast [Daliresp] 500 MCG) PO SCH (09:57)
[2019-12-24 15:58] VITALS: BP 121/80
== END 2019-12-24 17:17 | DRG 177 ==
LOC: EMEROOARM 10:38 → 2NENU 10:38 → SUATTDRO 12:38 → 2NENU 13:29 → SUATTDRO 12-15 15:24
PROVIDERS: ADMIT Pharmacist; ATTEND Internal Medicine

== ENCOUNTER 2020-04-02 23:24 | Inpatient (IN) ==
[2020-04-02] MEDS ORDERED: Isovue-370 500 ML BOTTLE IVP ONE (23:55)
[2020-04-03 00:38] LABS: Basophils % 0.3 %; Eosinophils % 0.1 %; Hematocrit 38.6 % (37.5-50.1); Hemoglobin 11.7 g/dL (12.9-16.9); Immature Granulocytes % 0.2 % (0-4); Lymphocytes # 0.3 K/mcL (0.6-4.6); Lymphocytes % 2.3 %; Mean Corpuscular HGB Conc 30.3 g/dL (31.6-35.5); Mean Corpuscular Hemoglobin 28.3 pg (28.0-33.3); Mean Corpuscular Volume 93.5 fL (83.0-100.0); Mean Platelet Volume 10.4 fL (9.4-12.4); Monocytes # 0.6 K/mcL (0.0-1.3); Monocytes % 5.4 %; Neutrophils # 9.9 K/mcL (1.6-8.9); Platelet Count 280 K/mcL (140-400); Red Blood Count 4.13 M/mcL (4.19-5.50); Red Cell Distribution Width 14.6 % (11.5-14.5); Segmented Neutrophils % 91.7 %; White Blood Count 10.8 K/mcL (4.3-11.1)
[2020-04-03 00:49] LABS: BUN/Creatinine Ratio 14 (6-26); Blood Urea Nitrogen 10 mg/dL (8-23); Calcium 8.7 mg/dL (8.6-10.3); Carbon Dioxide 34 mEq/L (23-29); Chloride 99 mEq/L (98-107); Glucose 116 mg/dL (70-105); Osmolality,Calculated 286 (280-300); Potassium 4.6 mEq/L (3.5-5.1); Sodium 138 mEq/L (136-145); eGFR For African Americans > 60 (> 60); eGFR For Non-African Americans > 60 (> 60)
[2020-04-03 00:50] LABS: Troponin I < 0.03 ng/mL (< 0.04)
[2020-04-03 01:07] LABS: Hypochromasia Present (Not Present); Platelet Estimate Normal (Normal); Toxic Granulation Present (Not Present)
[2020-04-03] MEDS ORDERED: Aspirin 81 MG TAB.CHEW PO ONE (01:59)
[2020-04-03] MEDS ORDERED: *HR* FentaNYL (PF) 100 MCG/2 ML VIAL IVP ONE (02:00)
[2020-04-03] MEDS ORDERED: Naloxone 0.4 MG/ML INJ IVP PRN (03:41)
[2020-04-03 06:34] LABS: Hematocrit 32.6 % (37.5-50.1); Mean Corpuscular HGB Conc 30.1 g/dL (31.6-35.5); Mean Corpuscular Hemoglobin 27.7 pg (28.0-33.3); Mean Corpuscular Volume 92.1 fL (83.0-100.0); Mean Platelet Volume 10.2 fL (9.4-12.4); Platelet Count 255 K/mcL (140-400); Red Blood Count 3.54 M/mcL (4.19-5.50); Red Cell Distribution Width 14.6 % (11.5-14.5); White Blood Count 10.6 K/mcL (4.3-11.1)
[2020-04-03 06:40] LABS: Hemoglobin 9.8 g/dL (12.9-16.9)
[2020-04-03] MEDS: *HR* Heparin 5,000 UNIT/ML VIAL SQ SCH ×3 (06:45→22:20)
[2020-04-03 06:56] LABS: BUN/Creatinine Ratio 17 (6-26); Blood Urea Nitrogen 11 mg/dL (8-23); Calcium 8.4 mg/dL (8.6-10.3); Carbon Dioxide 31 mEq/L (23-29); Chloride 100 mEq/L (98-107); Glucose 126 mg/dL (70-105); Osmolality,Calculated 283 (280-300); Potassium 4.3 mEq/L (3.5-5.1); Sodium 136 mEq/L (136-145); eGFR For African Americans > 60 (> 60); eGFR For Non-African Americans > 60 (> 60)
[2020-04-03] MEDS: Morphine Sulfate 2 MG/ML SYRINGE IVP PRN ×2 (08:42→14:39)
[2020-04-03] MEDS ORDERED: Perflutren Lipid Microsphere 1.3 ML in 0.9 % Sodium Chloride 8.7 ML IVP PRN (09:05)
[2020-04-03] MEDS ORDERED: Cholestyramine 4 GM POWD.PACK PO PRN (09:11)
[2020-04-03] MEDS ORDERED: Ipratropium/Albuterol Neb 3 ML IH PRN (09:11)
[2020-04-03] MEDS ORDERED: Regadenoson 0.4 MG/5 ML SYRINGE IVP ONE (10:02)
[2020-04-03] MEDS: Sucralfate 1 GM TABLET PO SCH ×3 (14:20→22:19)
[2020-04-03] MEDS: Primidone 50 MG TABLET PO SCH (22:19)
[2020-04-04] MEDS: *HR* Heparin 5,000 UNIT/ML VIAL SQ SCH ×3 (05:13→22:01)
[2020-04-04 07:48] LABS: Basophils # 0.1 K/mcL (0.0-0.2); Basophils % 0.9 %; Eosinophils # 0.2 K/mcL (0.0-0.6); Eosinophils % 3.4 %; Hematocrit 34.6 % (37.5-50.1); Hemoglobin 10.4 g/dL (12.9-16.9); Immature Granulocytes % 0.4 % (0-4); Lymphocytes # 0.6 K/mcL (0.6-4.6); Lymphocytes % 10.3 %; Mean Corpuscular HGB Conc 30.1 g/dL (31.6-35.5); Mean Corpuscular Hemoglobin 28.2 pg (28.0-33.3); Mean Corpuscular Volume 93.8 fL (83.0-100.0); Monocytes # 0.6 K/mcL (0.0-1.3); Monocytes % 10.3 %; Neutrophils # 4.2 K/mcL (1.6-8.9); Platelet Count 235 K/mcL (140-400); Red Blood Count 3.69 M/mcL (4.19-5.50); Red Cell Distribution Width 14.9 % (11.5-14.5); Segmented Neutrophils % 74.7 %; White Blood Count 5.6 K/mcL (4.3-11.1)
[2020-04-04] MEDS: Tiotropium 10 INH DOSE IH SCH (07:55)
[2020-04-04 08:15] LABS: Alanine Aminotransferase 9 Units/L (7-52); Albumin 2.6 g/dL (3.5-5.7); Albumin/Globulin Ratio 0.7 (1.1-2.2); Alkaline Phosphatase 57 Units/L (34-104); Aspartate Amino Transferase 13 Units/L (13-39); BUN/Creatinine Ratio 16 (6-26); Bilirubin,Total 0.4 mg/dL (0.3-1.0); Blood Urea Nitrogen 11 mg/dL (8-23); Calcium 8.4 mg/dL (8.6-10.3); Carbon Dioxide 33 mEq/L (23-29); Chloride 100 mEq/L (98-107); Globulin 3.6 g/dL (2.4-3.5); Glucose 94 mg/dL (70-105); Osmolality,Calculated 285 (280-300); Potassium 4.2 mEq/L (3.5-5.1); Sodium 138 mEq/L (136-145); Total Protein 6.2 g/dL (6.4-8.9); eGFR For African Americans > 60 (> 60); eGFR For Non-African Americans > 60 (> 60)
[2020-04-04 08:24] LABS: Troponin I < 0.03 ng/mL (< 0.04)
[2020-04-04] MEDS: Primidone 50 MG TABLET PO SCH ×2 (08:48→22:01)
[2020-04-04] MEDS: Sucralfate 1 GM TABLET PO SCH ×4 (08:48→22:01)
[2020-04-04] MEDS: Aspirin Enteric Coated 81 MG Tablet PO SCH (08:48)
[2020-04-04] MEDS ORDERED: (Roflumilast [Daliresp] 500 MCG) PO SCH (09:00)
[2020-04-04] MEDS ORDERED: NON-FORMULARY MEDICATION 1 EACH EACH (Tiotropium Br/Olodaterol Hcl [Stiolto Respimat Inhal IH SCH (09:00)
[2020-04-04] MEDS ORDERED: Furosemide 20 MG/2 ML VIAL IVP SCH (12:30)
[2020-04-04] MEDS: Furosemide 20 MG/2 ML VIAL IVP SCH (22:03)
[2020-04-04] MEDS: Levalbuterol 1 PUFF INHALER IH SCH (23:59)
[2020-04-05] MEDS: Ipratropium/Albuterol Neb 3 ML IH PRN ×3 (00:22→22:22)
[2020-04-05] MEDS: Levalbuterol 1 PUFF INHALER IH SCH ×4 (04:03→22:23)
[2020-04-05 04:13] LABS: Hematocrit 31.7 % (37.5-50.1); Hemoglobin 9.5 g/dL (12.9-16.9); Mean Corpuscular Hemoglobin 27.4 pg (28.0-33.3); Mean Corpuscular Volume 91.4 fL (83.0-100.0); Mean Platelet Volume 10.7 fL (9.4-12.4); Platelet Count 251 K/mcL (140-400); Red Blood Count 3.47 M/mcL (4.19-5.50); Red Cell Distribution Width 15.1 % (11.5-14.5); White Blood Count 5.6 K/mcL (4.3-11.1)
[2020-04-05 04:35] LABS: BUN/Creatinine Ratio 27 (6-26); Blood Urea Nitrogen 16 mg/dL (8-23); Calcium 8.1 mg/dL (8.6-10.3); Carbon Dioxide 34 mEq/L (23-29); Chloride 100 mEq/L (98-107); Glucose 106 mg/dL (70-105); Osmolality,Calculated 286 (280-300); Potassium 4.1 mEq/L (3.5-5.1); Sodium 137 mEq/L (136-145); eGFR For African Americans > 60 (> 60); eGFR For Non-African Americans > 60 (> 60)
[2020-04-05] MEDS: *HR* Heparin 5,000 UNIT/ML VIAL SQ SCH ×3 (05:46→20:33)
[2020-04-05] MEDS: Primidone 50 MG TABLET PO SCH ×2 (08:06→20:33)
[2020-04-05] MEDS: Aspirin Enteric Coated 81 MG Tablet PO SCH (08:06)
[2020-04-05] MEDS: Sucralfate 1 GM TABLET PO SCH ×4 (08:06→20:33)
[2020-04-05] MEDS: Morphine Sulfate 2 MG/ML SYRINGE IVP PRN (08:07)
[2020-04-05] MEDS: Furosemide 20 MG/2 ML VIAL IVP SCH ×2 (08:07→16:02)
[2020-04-05] MEDS: Tiotropium 10 INH DOSE IH SCH (10:53)
[2020-04-05] MEDS: Acetylcysteine 10% 2 ML INHSOL IH SCH ×2 (16:40→22:23)
[2020-04-06] MEDS: Levalbuterol 1 PUFF INHALER IH SCH ×4 (04:27→22:04)
[2020-04-06] MEDS: Ipratropium/Albuterol Neb 3 ML IH PRN (04:27)
[2020-04-06] MEDS: Acetylcysteine 10% 2 ML INHSOL IH SCH (04:27)
[2020-04-06 04:31] LABS: Hematocrit 31.7 % (37.5-50.1); Hemoglobin 9.3 g/dL (12.9-16.9); Mean Corpuscular HGB Conc 29.3 g/dL (31.6-35.5); Mean Corpuscular Hemoglobin 27.8 pg (28.0-33.3); Mean Corpuscular Volume 94.9 fL (83.0-100.0); Mean Platelet Volume 10.2 fL (9.4-12.4); Platelet Count 238 K/mcL (140-400); Red Blood Count 3.34 M/mcL (4.19-5.50); White Blood Count 5.1 K/mcL (4.3-11.1)
[2020-04-06 04:46] LABS: BUN/Creatinine Ratio 28 (6-26); Blood Urea Nitrogen 16 mg/dL (8-23); Carbon Dioxide 37 mEq/L (23-29); Chloride 100 mEq/L (98-107); Glucose 146 mg/dL (70-105); Osmolality,Calculated 290 (280-300); Potassium 3.9 mEq/L (3.5-5.1); Sodium 138 mEq/L (136-145); eGFR For African Americans > 60 (> 60); eGFR For Non-African Americans > 60 (> 60)
[2020-04-06] MEDS: *HR* Heparin 5,000 UNIT/ML VIAL SQ SCH ×3 (05:56→20:20)
[2020-04-06] MEDS: Sucralfate 1 GM TABLET PO SCH ×4 (07:35→20:20)
[2020-04-06] MEDS: Furosemide 20 MG/2 ML VIAL IVP SCH ×2 (07:35→17:10)
[2020-04-06] MEDS: Aspirin Enteric Coated 81 MG Tablet PO SCH (07:35)
[2020-04-06] MEDS: Primidone 50 MG TABLET PO SCH ×2 (07:35→20:20)
[2020-04-06] MEDS: Tiotropium 10 INH DOSE IH SCH (10:07)
[2020-04-06] MEDS: Morphine Sulfate 2 MG/ML SYRINGE IVP PRN (20:24)
[2020-04-07] MEDS: Levalbuterol 1 PUFF INHALER IH SCH ×2 (04:23→10:10)
[2020-04-07 05:36] LABS: Hematocrit 30.2 % (37.5-50.1); Hemoglobin 8.9 g/dL (12.9-16.9); Mean Corpuscular HGB Conc 29.5 g/dL (31.6-35.5); Mean Corpuscular Hemoglobin 27.9 pg (28.0-33.3); Mean Corpuscular Volume 94.7 fL (83.0-100.0); Mean Platelet Volume 10.3 fL (9.4-12.4); Platelet Count 230 K/mcL (140-400); Red Blood Count 3.19 M/mcL (4.19-5.50); White Blood Count 4.6 K/mcL (4.3-11.1)
[2020-04-07] MEDS: *HR* Heparin 5,000 UNIT/ML VIAL SQ SCH (05:52)
[2020-04-07] MEDS: Sucralfate 1 GM TABLET PO SCH ×2 (07:57→12:37)
[2020-04-07] MEDS: Primidone 50 MG TABLET PO SCH (07:57)
[2020-04-07] MEDS: Furosemide 20 MG/2 ML VIAL IVP SCH (07:57)
[2020-04-07] MEDS: Aspirin Enteric Coated 81 MG Tablet PO SCH (07:57)
[2020-04-07 08:16] VITALS: BP 110/71
[2020-04-07] MEDS: Tiotropium 10 INH DOSE IH SCH (10:10)
== END 2020-04-07 12:55 | DRG 204 ==
LOC: CDU 23:24 → EMEROOARM 23:24 → CDU 04-03 03:54 → 2ANU 04-04 23:44
PROVIDERS: ADMIT Student in an Organized Health Care Education/Training Program; ATTEND Student in an Organized Health Care Education/Training Program

== ENCOUNTER 2020-06-03 10:32 | Inpatient (IN) ==
[2020-06-03] MEDS ORDERED: Ipratropium/Albuterol Neb 3 ML IH ONE (10:51)
[2020-06-03 11:14] LABS: Basophils % 0.4 %; Eosinophils # 0.1 K/mcL (0.0-0.6); Hematocrit 36.3 % (37.5-50.1); Hemoglobin 10.7 g/dL (12.9-16.9); Immature Granulocytes % 0.2 % (0-4); Lymphocytes # 0.3 K/mcL (0.6-4.6); Lymphocytes % 5.7 %; Mean Corpuscular HGB Conc 29.5 g/dL (31.6-35.5); Mean Corpuscular Hemoglobin 28.5 pg (28.0-33.3); Mean Corpuscular Volume 96.5 fL (83.0-100.0); Mean Platelet Volume 10.6 fL (9.4-12.4); Monocytes # 0.1 K/mcL (0.0-1.3); Monocytes % 2.6 %; Neutrophils # 4.4 K/mcL (1.6-8.9); Platelet Count 285 K/mcL (140-400); Red Blood Count 3.76 M/mcL (4.19-5.50); Red Cell Distribution Width 15.7 % (11.5-14.5); Segmented Neutrophils % 90.1 %; White Blood Count 4.9 K/mcL (4.3-11.1)
[2020-06-03 11:23] LABS: INR 1.2; Prothrombin Time 13.8 Seconds (9.4-12.1)
[2020-06-03 11:25] LABS: Activated Partial Thrombo Time 23.2 Seconds (26.0-36.0)
[2020-06-03 12:37] LABS: Alanine Aminotransferase 20 Units/L (7-52); Albumin 2.7 g/dL (3.5-5.7); Albumin/Globulin Ratio 0.7 (1.1-2.2); Alkaline Phosphatase 69 Units/L (34-104); Aspartate Amino Transferase 21 Units/L (13-39); BUN/Creatinine Ratio 10 (6-26); Bilirubin,Direct 0.1 mg/dL (0.0-0.2); Bilirubin,Indirect 0.2 mg/dL (0.0-1.0); Bilirubin,Total 0.3 mg/dL (0.3-1.0); Blood Urea Nitrogen 8 mg/dL (8-23); Calcium 8.1 mg/dL (8.6-10.3); Carbon Dioxide 38 mEq/L (23-29); Chloride 97 mEq/L (98-107); Globulin 3.9 g/dL (2.4-3.5); Glucose 146 mg/dL (70-105); Osmolality,Calculated 283 (280-300); Potassium 4.6 mEq/L (3.5-5.1); Sodium 136 mEq/L (136-145); Total Protein 6.6 g/dL (6.4-8.9); eGFR For African Americans > 60 (> 60); eGFR For Non-African Americans > 60 (> 60)
[2020-06-03] MEDS ORDERED: Doxycycline 100 MG in 0.9 % Sodium Chloride Mini Bag 100 ML IVPB ONE (13:29)
[2020-06-03] MEDS ORDERED: MethylPREDNISolone 40 MG/ML VIAL IVP ONE (14:07)
[2020-06-03] MEDS ORDERED: Nitroglycerin 0.4 MG TAB.SUBL SL PRN (14:12)
[2020-06-03] MEDS ORDERED: Naloxone 0.4 MG/ML INJ IVP PRN (14:19)
[2020-06-03] MEDS: Albuterol 2.5 MG/3 ML NEBULIZER IH SCH ×3 (15:02→23:34)
[2020-06-03] MEDS: *HR* Heparin 5,000 UNIT/ML VIAL SQ SCH (16:46)
[2020-06-03] MEDS: Doxycycline 100 MG CAPSULE PO SCH (21:08)
[2020-06-04] MEDS: Albuterol 2.5 MG/3 ML NEBULIZER IH SCH ×3 (03:47→11:02)
[2020-06-04 05:34] LABS: Basophils % 0.3 %; Hematocrit 33.2 % (37.5-50.1); Hemoglobin 9.8 g/dL (12.9-16.9); Immature Granulocytes % 0.3 % (0-4); Lymphocytes # 0.4 K/mcL (0.6-4.6); Lymphocytes % 10.3 %; Mean Corpuscular HGB Conc 29.5 g/dL (31.6-35.5); Mean Corpuscular Hemoglobin 28.2 pg (28.0-33.3); Mean Corpuscular Volume 95.7 fL (83.0-100.0); Mean Platelet Volume 10.6 fL (9.4-12.4); Monocytes # 0.3 K/mcL (0.0-1.3); Monocytes % 6.5 %; Neutrophils # 3.3 K/mcL (1.6-8.9); Platelet Count 259 K/mcL (140-400); Red Blood Count 3.47 M/mcL (4.19-5.50); Red Cell Distribution Width 15.5 % (11.5-14.5); Segmented Neutrophils % 82.6 %
[2020-06-04] MEDS: *HR* Heparin 5,000 UNIT/ML VIAL SQ SCH ×2 (05:55→18:09)
[2020-06-04 05:57] LABS: Alanine Aminotransferase 15 Units/L (7-52); Albumin 2.6 g/dL (3.5-5.7); Albumin/Globulin Ratio 0.7 (1.1-2.2); Alkaline Phosphatase 62 Units/L (34-104); Aspartate Amino Transferase 15 Units/L (13-39); BUN/Creatinine Ratio 14 (6-26); Bilirubin,Total 0.2 mg/dL (0.3-1.0); Blood Urea Nitrogen 9 mg/dL (8-23); Calcium 8.3 mg/dL (8.6-10.3); Carbon Dioxide 36 mEq/L (23-29); Chloride 98 mEq/L (98-107); Globulin 3.6 g/dL (2.4-3.5); Glucose 143 mg/dL (70-105); Osmolality,Calculated 285 (280-300); Potassium 4.5 mEq/L (3.5-5.1); Sodium 137 mEq/L (136-145); Total Protein 6.2 g/dL (6.4-8.9); eGFR For African Americans > 60 (> 60); eGFR For Non-African Americans > 60 (> 60)
[2020-06-04] MEDS ORDERED: Roflumilast [Daliresp] 500 MCG Tablet PO SCH (09:00)
[2020-06-04 09:28] LABS: Estimated Average Glucose 111 mg/dl; Hemoglobin A1C 5.5 %
[2020-06-04] MEDS: Cholecalciferol (D-3) 1,000 UNIT (25MCG) TABLET PO SCH (10:25)
[2020-06-04] MEDS: predniSONE 20 MG TABLET PO SCH (10:25)
[2020-06-04] MEDS: Doxycycline 100 MG CAPSULE PO SCH ×2 (10:25→20:21)
[2020-06-04] MEDS: Aspirin Enteric Coated 81 MG Tablet PO SCH (10:25)
[2020-06-04] MEDS ORDERED: NON-FORMULARY MEDICATION 1 EACH EACH (Alendronate Sodium 70 MG Tablet) PO SCH (14:12)
[2020-06-04] MEDS: Albuterol 2.5 MG/3 ML NEBULIZER IH PRN (18:28)
[2020-06-04] MEDS: Mirtazapine 15 MG TABLET PO SCH (20:21)
[2020-06-04] MEDS: Primidone 50 MG TABLET PO SCH (20:22)
[2020-06-05 02:16] LABS: Hematocrit 30.1 % (37.5-50.1); Hemoglobin 8.9 g/dL (12.9-16.9); Mean Corpuscular HGB Conc 29.6 g/dL (31.6-35.5); Mean Corpuscular Hemoglobin 27.7 pg (28.0-33.3); Mean Corpuscular Volume 93.8 fL (83.0-100.0); Mean Platelet Volume 9.8 fL (9.4-12.4); Platelet Count 277 K/mcL (140-400); Red Blood Count 3.21 M/mcL (4.19-5.50); Red Cell Distribution Width 15.9 % (11.5-14.5); White Blood Count 4.9 K/mcL (4.3-11.1)
[2020-06-05 02:27] LABS: VBG HCO3 35 mEq/L (21-27); VBG PCO2 55 mmHg (41-51); VBG PH 7.41 pH Units (7.32-7.42); VBG PO2 117 mmHg (25-50)
[2020-06-05 02:35] LABS: BUN/Creatinine Ratio 13 (6-26); Blood Urea Nitrogen 12 mg/dL (8-23); Calcium 8.2 mg/dL (8.6-10.3); Carbon Dioxide 38 mEq/L (23-29); Chloride 100 mEq/L (98-107); Glucose 155 mg/dL (70-105); Osmolality,Calculated 289 (280-300); Potassium 4.5 mEq/L (3.5-5.1); Sodium 138 mEq/L (136-145); eGFR For African Americans > 60 (> 60); eGFR For Non-African Americans > 60 (> 60)
[2020-06-05] MEDS: *HR* Heparin 5,000 UNIT/ML VIAL SQ SCH ×2 (05:58→17:53)
[2020-06-05] MEDS: Aspirin Enteric Coated 81 MG Tablet PO SCH (09:16)
[2020-06-05] MEDS: predniSONE 20 MG TABLET PO SCH (09:17)
[2020-06-05] MEDS: Cholecalciferol (D-3) 1,000 UNIT (25MCG) TABLET PO SCH (09:17)
[2020-06-05] MEDS: Doxycycline 100 MG CAPSULE PO SCH ×2 (09:17→21:16)
[2020-06-05] MEDS: Primidone 50 MG TABLET PO SCH ×2 (09:17→21:16)
[2020-06-05] MEDS: Mirtazapine 15 MG TABLET PO SCH (21:16)
[2020-06-06] MEDS: *HR* Heparin 5,000 UNIT/ML VIAL SQ SCH ×2 (05:18→17:49)
[2020-06-06 06:41] LABS: Hematocrit 37.8 % (37.5-50.1); Mean Corpuscular HGB Conc 29.1 g/dL (31.6-35.5); Mean Corpuscular Hemoglobin 27.7 pg (28.0-33.3); Mean Corpuscular Volume 95.2 fL (83.0-100.0); Mean Platelet Volume 10.7 fL (9.4-12.4); Platelet Count 316 K/mcL (140-400); Red Blood Count 3.97 M/mcL (4.19-5.50); Red Cell Distribution Width 16.2 % (11.5-14.5)
[2020-06-06 07:04] LABS: BUN/Creatinine Ratio 12 (6-26); Blood Urea Nitrogen 9 mg/dL (8-23); Calcium 8.9 mg/dL (8.6-10.3); Carbon Dioxide 35 mEq/L (23-29); Chloride 101 mEq/L (98-107); Glucose 81 mg/dL (70-105); Osmolality,Calculated 286 (280-300); Potassium 4.2 mEq/L (3.5-5.1); Sodium 139 mEq/L (136-145); eGFR For African Americans > 60 (> 60); eGFR For Non-African Americans > 60 (> 60)
[2020-06-06 07:19] LABS: Ferritin 85 ng/mL (20-250)
[2020-06-06 07:24] LABS: Folate 8.2 ng/mL (3.0-16.0)
[2020-06-06] MEDS ORDERED: Lidocaine -MPF 2% 2 ML VIAL ONE (09:58)
[2020-06-06] MEDS ORDERED: *HR* Propofol 200 MG/20 ML VIAL IVP ONE (11:17)
[2020-06-06] MEDS ORDERED: *HR* FentaNYL (PF) 100 MCG/2 ML VIAL ONE (11:17)
[2020-06-06] MEDS: Aspirin Enteric Coated 81 MG Tablet PO SCH (12:51)
[2020-06-06] MEDS: Cyanocobalamin (B-12) 1,000 MCG TABLET PO SCH (12:51)
[2020-06-06] MEDS: Cholecalciferol (D-3) 1,000 UNIT (25MCG) TABLET PO SCH (12:51)
[2020-06-06] MEDS: Primidone 50 MG TABLET PO SCH ×2 (12:51→20:35)
[2020-06-06] MEDS: predniSONE 20 MG TABLET PO SCH (12:51)
[2020-06-06] MEDS: Doxycycline 100 MG CAPSULE PO SCH ×2 (12:51→20:35)
[2020-06-06] MEDS: Mirtazapine 15 MG TABLET PO SCH (20:35)
[2020-06-07 01:26] LABS: Basophils % 0.5 %; Hematocrit 32.9 % (37.5-50.1); Hemoglobin 9.8 g/dL (12.9-16.9); Immature Granulocytes % 0.2 % (0-4); Lymphocytes # 0.6 K/mcL (0.6-4.6); Mean Corpuscular HGB Conc 29.8 g/dL (31.6-35.5); Mean Corpuscular Hemoglobin 27.8 pg (28.0-33.3); Mean Corpuscular Volume 93.5 fL (83.0-100.0); Mean Platelet Volume 10.3 fL (9.4-12.4); Monocytes # 0.4 K/mcL (0.0-1.3); Monocytes % 6.6 %; Neutrophils # 4.7 K/mcL (1.6-8.9); Platelet Count 297 K/mcL (140-400); Red Blood Count 3.52 M/mcL (4.19-5.50); Segmented Neutrophils % 82.7 %; White Blood Count 5.7 K/mcL (4.3-11.1)
[2020-06-07 01:42] LABS: BUN/Creatinine Ratio 26 (6-26); Blood Urea Nitrogen 17 mg/dL (8-23); Calcium 8.5 mg/dL (8.6-10.3); Carbon Dioxide 36 mEq/L (23-29); Chloride 102 mEq/L (98-107); Glucose 152 mg/dL (70-105); Osmolality,Calculated 293 (280-300); Potassium 4.4 mEq/L (3.5-5.1); Sodium 139 mEq/L (136-145); eGFR For African Americans > 60 (> 60); eGFR For Non-African Americans > 60 (> 60)
[2020-06-07] MEDS: *HR* Heparin 5,000 UNIT/ML VIAL SQ SCH ×2 (06:09→17:51)
[2020-06-07] MEDS: Primidone 50 MG TABLET PO SCH ×2 (09:18→19:32)
[2020-06-07] MEDS: Aspirin Enteric Coated 81 MG Tablet PO SCH (09:18)
[2020-06-07] MEDS: Cyanocobalamin (B-12) 1,000 MCG TABLET PO SCH (09:18)
[2020-06-07] MEDS: Doxycycline 100 MG CAPSULE PO SCH ×2 (09:18→19:32)
[2020-06-07] MEDS: predniSONE 20 MG TABLET PO SCH (09:18)
[2020-06-07] MEDS: Cholecalciferol (D-3) 1,000 UNIT (25MCG) TABLET PO SCH (09:19)
[2020-06-07] MEDS ORDERED: Morphine Sulfate 2 MG/ML SYRINGE IVP PRN (09:40)
[2020-06-07] MEDS ORDERED: 0.9 % Sodium Chloride 1,000 ML IVC SCH (09:45)
[2020-06-07] MEDS: Albuterol 2.5 MG/3 ML NEBULIZER IH PRN (10:05)
[2020-06-08 01:00] LABS: Hemoglobin 9.1 g/dL (12.9-16.9); Mean Corpuscular HGB Conc 29.4 g/dL (31.6-35.5); Mean Corpuscular Hemoglobin 28.3 pg (28.0-33.3); Mean Corpuscular Volume 96.3 fL (83.0-100.0); Mean Platelet Volume 10.3 fL (9.4-12.4); Platelet Count 249 K/mcL (140-400); Red Blood Count 3.22 M/mcL (4.19-5.50); Red Cell Distribution Width 16.2 % (11.5-14.5); White Blood Count 6.2 K/mcL (4.3-11.1)
[2020-06-08 01:21] LABS: BUN/Creatinine Ratio 22 (6-26); Blood Urea Nitrogen 16 mg/dL (8-23); Calcium 7.9 mg/dL (8.6-10.3); Carbon Dioxide 34 mEq/L (23-29); Chloride 105 mEq/L (98-107); Glucose 124 mg/dL (70-105); Osmolality,Calculated 295 (280-300); Potassium 4.3 mEq/L (3.5-5.1); Sodium 141 mEq/L (136-145); eGFR For African Americans > 60 (> 60); eGFR For Non-African Americans > 60 (> 60)
[2020-06-08] MEDS: *HR* Heparin 5,000 UNIT/ML VIAL SQ SCH ×2 (04:14→17:06)
[2020-06-08] MEDS: Cyanocobalamin (B-12) 1,000 MCG TABLET PO SCH (08:09)
[2020-06-08] MEDS: Cholecalciferol (D-3) 1,000 UNIT (25MCG) TABLET PO SCH (08:09)
[2020-06-08] MEDS: Aspirin Enteric Coated 81 MG Tablet PO SCH (08:09)
[2020-06-08] MEDS: Doxycycline 100 MG CAPSULE PO SCH ×2 (08:10→21:51)
[2020-06-08] MEDS: Metoprolol XL (24 HR) Succ 25 MG TAB.ER.24H PO SCH (08:10)
[2020-06-08] MEDS: Primidone 50 MG TABLET PO SCH ×2 (08:10→21:52)
[2020-06-08] MEDS: Albuterol 2.5 MG/3 ML NEBULIZER IH PRN (08:53)
[2020-06-08] MEDS: Mirtazapine 15 MG TABLET PO SCH (21:52)
[2020-06-09 04:59] LABS: Hematocrit 32.3 % (37.5-50.1); Hemoglobin 9.5 g/dL (12.9-16.9); Mean Corpuscular HGB Conc 29.4 g/dL (31.6-35.5); Mean Corpuscular Hemoglobin 28.1 pg (28.0-33.3); Mean Corpuscular Volume 95.6 fL (83.0-100.0); Mean Platelet Volume 10.3 fL (9.4-12.4); Platelet Count 251 K/mcL (140-400); Red Blood Count 3.38 M/mcL (4.19-5.50); Red Cell Distribution Width 16.6 % (11.5-14.5); White Blood Count 5.1 K/mcL (4.3-11.1)
[2020-06-09 05:21] LABS: BUN/Creatinine Ratio 25 (6-26); Blood Urea Nitrogen 16 mg/dL (8-23); Carbon Dioxide 37 mEq/L (23-29); Chloride 103 mEq/L (98-107); Glucose 87 mg/dL (70-105); Osmolality,Calculated 293 (280-300); Potassium 4.2 mEq/L (3.5-5.1); Sodium 141 mEq/L (136-145); eGFR For African Americans > 60 (> 60); eGFR For Non-African Americans > 60 (> 60)
[2020-06-09] MEDS: *HR* Heparin 5,000 UNIT/ML VIAL SQ SCH (06:28)
[2020-06-09] MEDS: Aspirin Enteric Coated 81 MG Tablet PO SCH (08:41)
[2020-06-09] MEDS: Cyanocobalamin (B-12) 1,000 MCG TABLET PO SCH (08:42)
[2020-06-09] MEDS: Metoprolol XL (24 HR) Succ 25 MG TAB.ER.24H PO SCH (08:42)
[2020-06-09] MEDS: Doxycycline 100 MG CAPSULE PO SCH (08:43)
[2020-06-09] MEDS: Cholecalciferol (D-3) 1,000 UNIT (25MCG) TABLET PO SCH (08:43)
[2020-06-09] MEDS: Primidone 50 MG TABLET PO SCH (08:44)
[2020-06-09] MEDS ORDERED: *HR* Heparin 10,000 UNIT/10 ML VIAL ONE (09:57)
[2020-06-09] MEDS ORDERED: 0.9 % Sodium Chloride 1,000 ML ONE (09:57)
[2020-06-09] MEDS ORDERED: ISOVUE-370 200 ML INFUS..BTL ONE ×2 (09:57→11:03)
[2020-06-09] MEDS ORDERED: Nitroglycerin 1,000 MCG/5 ML VIAL IV ONE (09:57)
[2020-06-09] MEDS ORDERED: Heparin 1,000 UNITS/500 mL 500 ML ONE (09:57)
[2020-06-09] MEDS ORDERED: *HR* FentaNYL (PF) 100 MCG/2 ML VIAL ONE (10:05)
[2020-06-09] MEDS ORDERED: *HR* Midazolam HCl 2 MG/2 ML VIAL ONE (10:05)
[2020-06-09] MEDS ORDERED: *HR* Atropine Sulfate 1 MG/10 ML SYRINGE ONE (10:39)
[2020-06-09] MEDS ORDERED: Tirofiban 12.5 MG/250ML 12.5 MG/250 ML BAG ONE (10:58)
[2020-06-09] MEDS ORDERED: Tirofiban 12.5 MG/250ML 12.5 MG/250 ML BAG IVC SCH (15:30)
[2020-06-09] MEDS: Mirtazapine 15 MG TABLET PO SCH (23:44)
[2020-06-09] MEDS: Apixaban 5 MG TABLET PO SCH (23:45)
[2020-06-10 09:39] LABS: Hemoglobin 10.4 g/dL (12.9-16.9); Mean Corpuscular HGB Conc 29.7 g/dL (31.6-35.5); Mean Corpuscular Hemoglobin 28.3 pg (28.0-33.3); Mean Corpuscular Volume 95.4 fL (83.0-100.0); Mean Platelet Volume 10.3 fL (9.4-12.4); Platelet Count 260 K/mcL (140-400); Red Blood Count 3.67 M/mcL (4.19-5.50); Red Cell Distribution Width 16.3 % (11.5-14.5); White Blood Count 6.2 K/mcL (4.3-11.1)
[2020-06-10] MEDS: Aspirin Enteric Coated 81 MG Tablet PO SCH (10:05)
[2020-06-10] MEDS: Metoprolol XL (24 HR) Succ 25 MG TAB.ER.24H PO SCH (10:06)
[2020-06-10] MEDS: Cyanocobalamin (B-12) 1,000 MCG TABLET PO SCH (10:07)
[2020-06-10] MEDS: Apixaban 5 MG TABLET PO SCH (10:07)
[2020-06-10] MEDS: Cholecalciferol (D-3) 1,000 UNIT (25MCG) TABLET PO SCH (10:07)
[2020-06-10 10:12] LABS: BUN/Creatinine Ratio 19 (6-26); Blood Urea Nitrogen 11 mg/dL (8-23); Calcium 8.4 mg/dL (8.6-10.3); Carbon Dioxide 42 mEq/L (23-29); Chloride 99 mEq/L (98-107); Glucose 92 mg/dL (70-105); Osmolality,Calculated 291 (280-300); Potassium 3.6 mEq/L (3.5-5.1); Sodium 141 mEq/L (136-145); eGFR For African Americans > 60 (> 60); eGFR For Non-African Americans > 60 (> 60)
[2020-06-10 10:41] LABS: VBG HCO3 39 mEq/L (21-27); VBG PCO2 70 mmHg (41-51); VBG PH 7.36 pH Units (7.32-7.42); VBG PO2 73 mmHg (25-50)
[2020-06-10 11:11] VITALS: BP 128/87
== END 2020-06-10 13:44 | DRG 246 ==
LOC: EMEROOARM 10:32 → 2ANU 10:32 → SUATTDRO 06-04 14:30
PROVIDERS: ADMIT Family Medicine; ATTEND Internal Medicine
PROC: ENDOEBX (2020-06-06 08:55)

== ENCOUNTER 2021-03-13 23:39 | Inpatient (IN) ==
[2021-03-13] MEDS ORDERED: Isovue-370 500 ML BOTTLE IVP ONE (23:47)
[2021-03-13] MEDS ORDERED: 0.9 % Sodium Chloride 1,000 ML IV ONE (23:47)
[2021-03-13] MEDS ORDERED: Morphine Sulfate 2 MG/ML SYRINGE IVP ONE (23:47)
[2021-03-13] MEDS ORDERED: Ondansetron 4 MG/2 ML VIAL IVP ONE (23:47)
[2021-03-14 00:30] LABS: Eosinophils % 1.3 %; Immature Granulocytes % 0.2 % (0-4); Red Blood Count 4.09 M/mcL (4.19-5.50)
[2021-03-14 00:31] LABS: Basophils % 0.4 %; Eosinophils # 0.1 K/mcL (0.0-0.6); Hematocrit 38.5 % (37.5-50.1); Hemoglobin 10.9 g/dL (12.9-16.9); Mean Corpuscular HGB Conc 28.3 g/dL (31.6-35.5); Mean Corpuscular Hemoglobin 26.7 pg (28.0-33.3); Mean Corpuscular Volume 94.1 fL (83.0-100.0); Mean Platelet Volume 11.5 fL (9.4-12.4); Monocytes # 0.9 K/mcL (0.0-1.3); Monocytes % 10.1 %; Platelet Count 239 K/mcL (140-400); Red Cell Distribution Width 16.1 % (11.5-14.5); White Blood Count 9.1 K/mcL (4.3-11.1)
[2021-03-14 00:32] LABS: Lymphocytes # 1.1 K/mcL (0.6-4.6); Neutrophils # 6.9 K/mcL (1.6-8.9)
[2021-03-14 00:34] LABS: Alanine Aminotransferase 346 Units/L (7-52); Albumin 3.3 g/dL (3.5-5.7); Albumin/Globulin Ratio 0.9 (1.1-2.2); Alkaline Phosphatase 165 Units/L (34-104); Aspartate Amino Transferase 370 Units/L (13-39); BUN/Creatinine Ratio 18 (6-26); Bilirubin,Direct 0.5 mg/dL (0.0-0.2); Bilirubin,Indirect 0.3 mg/dL (0.0-1.0); Bilirubin,Total 0.8 mg/dL (0.3-1.0); Blood Urea Nitrogen 16 mg/dL (8-23); Calcium 8.3 mg/dL (8.6-10.3); Carbon Dioxide 34 mEq/L (23-29); Chloride 103 mEq/L (98-107); Globulin 3.8 g/dL (2.4-3.5); Glucose 122 mg/dL (70-105); Lipase 43 Units/L (11-82); Osmolality,Calculated 294 (280-300); Potassium 4.2 mEq/L (3.5-5.1); Sodium 141 mEq/L (136-145); Total Protein 7.1 g/dL (6.4-8.9); Troponin I < 0.03 ng/mL (< 0.04); eGFR For African Americans > 60 (> 60); eGFR For Non-African Americans > 60 (> 60)
[2021-03-14 00:34] LABS: Bilirubin,Urine Negative (Negative); Blood,Urine Negative (Negative); Clarity,Urine Clear (Clear); Color,Urine Yellow (Yellow); Glucose,Urine (UA) Normal (Normal); Ketones,Urine Negative (Negative); Leukocyte Esterase,Urine Negative (Negative); Nitrite,Urine Negative (Negative); PH,Urine 6.5 pH Units (5.0-8.0); Protein,Urine Trace mg/dL (Neg-Trace); Specific Gravity,Urine 1.025 (1.010-1.025); Urobilinogen,Urine Normal (Normal)
[2021-03-14 00:50] LABS: Influenza A PCR Negative (Negative); Influenza B PCR Negative (Negative); Resp. Syncytial Virus PCR Negative (Negative)
[2021-03-14 00:51] LABS: SARS-CoV-2 by PCR (In House) Negative (Negative)
[2021-03-14 03:26] LABS: INR 1.2; Prothrombin Time 13.6 Seconds (9.4-12.1)
[2021-03-14 03:29] LABS: Activated Partial Thrombo Time 24.9 Seconds (26.0-36.0)
[2021-03-14] MEDS ORDERED: Naloxone 0.4 MG/ML INJ IVP PRN (03:32)
[2021-03-14] MEDS ORDERED: Melatonin 3 MG TABLET PO PRN (03:32)
[2021-03-14 03:41] LABS: Acetaminophen < 10 mcg/mL (10-20); Salicylate < 2.5 mg/dL (15.0-30.0)
[2021-03-14] MEDS ORDERED: Ipratropium/Albuterol Neb 3 ML IH PRN (03:52)
[2021-03-14] MEDS ORDERED: Levalbuterol 1 PUFF INHALER IH PRN (03:52)
[2021-03-14] MEDS ORDERED: MetroNIDAZOLE 500 MG/100 ML 500 MG/100 ML BAG IVPB SCH ×2 (05:00→08:00)
[2021-03-14] MEDS: Metoprolol XL (24 HR) Succ 25 MG TAB.ER.24H PO SCH (08:35)
[2021-03-14] MEDS: Piperacillin/Tazobactam 3.375 GM in 0.9 % Sodium Chloride Mini Bag 100 ML IVPB SCH (17:16)
[2021-03-14] MEDS: *HR* Heparin 5,000 UNIT/ML VIAL SQ SCH (17:17)
[2021-03-14] MEDS ORDERED: Mirtazapine 15 MG TABLET PO SCH (21:00)
[2021-03-14] MEDS ORDERED: Apixaban 5 MG TABLET PO SCH (21:00)
[2021-03-15] MEDS: Piperacillin/Tazobactam 3.375 GM in 0.9 % Sodium Chloride Mini Bag 100 ML IVPB SCH ×3 (01:22→17:51)
[2021-03-15] MEDS: *HR* Heparin 5,000 UNIT/ML VIAL SQ SCH ×3 (05:37→18:50)
[2021-03-15 06:13] LABS: Red Cell Distribution Width 16.2 % (11.5-14.5)
[2021-03-15 06:14] LABS: Hemoglobin 10.2 g/dL (12.9-16.9); Mean Corpuscular HGB Conc 28.3 g/dL (31.6-35.5); Mean Corpuscular Hemoglobin 26.7 pg (28.0-33.3); Mean Corpuscular Volume 94.2 fL (83.0-100.0); Mean Platelet Volume 10.5 fL (9.4-12.4); Platelet Count 161 K/mcL (140-400); Red Blood Count 3.82 M/mcL (4.19-5.50); White Blood Count 8.2 K/mcL (4.3-11.1)
[2021-03-15 06:54] LABS: Alanine Aminotransferase 447 Units/L (7-52); Albumin 2.8 g/dL (3.5-5.7); Alkaline Phosphatase 204 Units/L (34-104); Aspartate Amino Transferase 206 Units/L (13-39); BUN/Creatinine Ratio 19 (6-26); Bilirubin,Direct 0.8 mg/dL (0.0-0.2); Bilirubin,Indirect 0.8 mg/dL (0.0-1.0); Bilirubin,Total 1.6 mg/dL (0.3-1.0); Blood Urea Nitrogen 16 mg/dL (8-23); Carbon Dioxide 26 mEq/L (23-29); Chloride 106 mEq/L (98-107); Glucose 75 mg/dL (70-105); Osmolality,Calculated 292 (280-300); Potassium 4.3 mEq/L (3.5-5.1); Sodium 141 mEq/L (136-145); eGFR For African Americans > 60 (> 60); eGFR For Non-African Americans > 60 (> 60)
[2021-03-15 07:46] LABS: Albumin/Globulin Ratio 0.9 (1.1-2.2); Globulin 3.1 g/dL (2.4-3.5); Total Protein 5.9 g/dL (6.4-8.9)
[2021-03-15] MEDS: Metoprolol XL (24 HR) Succ 25 MG TAB.ER.24H PO SCH ×2 (08:01→20:41)
[2021-03-15] MEDS ORDERED: NON-FORMULARY MEDICATION 1 EACH EACH (Buspirone Hcl [Buspar] 15 MG Tablet) PO SCH (09:00)
[2021-03-15] MEDS ORDERED: Roflumilast [Daliresp] 500 MCG Tablet PO SCH (09:00)
[2021-03-15] MEDS ORDERED: Cyanocobalamin (B-12) 1,000 MCG TABLET PO SCH (09:00)
[2021-03-15] MEDS ORDERED: Aspirin Enteric Coated 81 MG Tablet PO SCH (09:00)
[2021-03-15] MEDS ORDERED: Perflutren Lipid Microsphere 1.3 ML in 0.9 % Sodium Chloride 8.7 ML IVP PRN ×2 (09:24→18:00)
[2021-03-15] MEDS ORDERED: Isovue-300 50ML VIAL ONE (13:41)
[2021-03-15] MEDS ORDERED: Albumin Human 5% 25.0 GM/500 ML IV.SOLN ONE (13:54)
[2021-03-15] MEDS ORDERED: *HR* Vasopressin 20 UNIT/ML VIAL ONE (13:54)
[2021-03-15] MEDS ORDERED: Ondansetron 4 MG/2 ML VIAL ONE (13:57)
[2021-03-15] MEDS ORDERED: Lidocaine HCL 4 ML Topical Solution (Laryng-O-Jet Kit Sterile Pak) TP ONE (13:57)
[2021-03-15] MEDS ORDERED: *HR* Propofol 200 MG/20 ML VIAL IVP ONE (13:57)
[2021-03-15] MEDS ORDERED: Lidocaine -MPF 2% 5 ML VIAL ONE ×2 (13:57→15:10)
[2021-03-15] MEDS ORDERED: *HR* FentaNYL (PF) 100 MCG/2 ML VIAL ONE (13:57)
[2021-03-15] MEDS ORDERED: *HR* Succinylcholine 200 MG/10 ML VIAL IVP ONE (13:57)
[2021-03-15] MEDS ORDERED: *HR* Rocuronium Bromide 50 MG/5 ML VIAL ONE (13:57)
[2021-03-15] MEDS ORDERED: EPHEDrine 50 MG/ML VIAL ONE (14:00)
[2021-03-15] MEDS ORDERED: Ringers Solution, Lactated 1,000 ML ONE (16:38)
[2021-03-15] MEDS ORDERED: Morphine Sulfate 2 MG/ML SYRINGE IVP PRN (16:48)
[2021-03-15] MEDS ORDERED: Naloxone 0.4 MG/ML INJ IVP PRN (18:00)
[2021-03-15] MEDS ORDERED: Ipratropium/Albuterol Neb 3 ML IH PRN (18:00)
[2021-03-15] MEDS: Mirtazapine 15 MG TABLET PO SCH ×2 (20:42→21:00)
[2021-03-15] MEDS ORDERED: Metoprolol XL (24 HR) Succ 25 MG TAB.ER.24H PO SCH (21:00)
[2021-03-16] MEDS: Piperacillin/Tazobactam 3.375 GM in 0.9 % Sodium Chloride Mini Bag 100 ML IVPB SCH ×3 (01:21→18:07)
[2021-03-16 02:25] LABS: BUN/Creatinine Ratio 25 (6-26); Basophils % 0.1 %; Blood Urea Nitrogen 27 mg/dL (8-23); Calcium 7.8 mg/dL (8.6-10.3); Carbon Dioxide 30 mEq/L (23-29); Chloride 105 mEq/L (98-107); Glucose 158 mg/dL (70-105); Magnesium 1.9 mg/dL (1.6-2.6); Osmolality,Calculated 300 (280-300); Phosphorous 4.8 mg/dL (2.7-4.5); Potassium 4.8 mEq/L (3.5-5.1); Red Cell Distribution Width 16.3 % (11.5-14.5); Sodium 141 mEq/L (136-145); eGFR For African Americans > 60 (> 60); eGFR For Non-African Americans > 60 (> 60)
[2021-03-16 02:27] LABS: Hematocrit 35.4 % (37.5-50.1); Hemoglobin 9.6 g/dL (12.9-16.9); Immature Granulocytes % 0.2 % (0-4); Lymphocytes # 0.2 K/mcL (0.6-4.6); Lymphocytes % 1.6 %; Mean Corpuscular HGB Conc 27.1 g/dL (31.6-35.5); Mean Corpuscular Hemoglobin 26.2 pg (28.0-33.3); Mean Corpuscular Volume 96.5 fL (83.0-100.0); Mean Platelet Volume 12.2 fL (9.4-12.4); Monocytes # 0.7 K/mcL (0.0-1.3); Monocytes % 6.3 %; Neutrophils # 10.1 K/mcL (1.6-8.9); Platelet Count 182 K/mcL (140-400); Red Blood Count 3.67 M/mcL (4.19-5.50); Segmented Neutrophils % 91.8 %
[2021-03-16 03:00] LABS: Anisocytosis 1+ (Not Present); Hypochromasia Present (Not Present); Platelet Estimate Normal (Normal)
[2021-03-16] MEDS: *HR* Heparin 5,000 UNIT/ML VIAL SQ SCH ×2 (06:57→18:07)
[2021-03-16] MEDS ORDERED: Patient Taking Own Medication 1 EACH PO SCH (09:00)
[2021-03-16 09:05] LABS: Alanine Aminotransferase 337 Units/L (7-52); Alkaline Phosphatase 170 Units/L (34-104); Aspartate Amino Transferase 124 Units/L (13-39); Bilirubin,Direct 0.2 mg/dL (0.0-0.2); Bilirubin,Indirect 0.4 mg/dL (0.0-1.0); Bilirubin,Total 0.6 mg/dL (0.3-1.0); Globulin 3.1 g/dL (2.4-3.5); Total Protein 6.1 g/dL (6.4-8.9)
[2021-03-16] MEDS: Cyanocobalamin (B-12) 1,000 MCG TABLET PO SCH (09:27)
[2021-03-16] MEDS: Metoprolol XL (24 HR) Succ 25 MG TAB.ER.24H PO SCH ×2 (09:28→22:13)
[2021-03-16] MEDS: Aspirin Enteric Coated 81 MG Tablet PO SCH (09:31)
[2021-03-16] MEDS ORDERED: Tiotropium 10 INH DOSE IH SCH (10:00)
[2021-03-16 10:31] LABS: Bilirubin,Urine Negative (Negative); Blood,Urine Negative (Negative); Clarity,Urine Turbid (Clear); Color,Urine Yellow (Yellow); Glucose,Urine (UA) Normal (Normal); Hyaline Casts,Urine Few per lpf (None Seen); Ketones,Urine Trace mg/dL (Negative); Leukocyte Esterase,Urine Negative (Negative); Mucus,Urine Few per lpf (None-Few); Nitrite,Urine Negative (Negative); PH,Urine 5.5 pH Units (5.0-8.0); Protein,Urine 30 mg/dL (Neg-Trace); RBC,Urine 0-3 per hpf (0-3); Specific Gravity,Urine 1.029 (1.010-1.025); Squamous Epithelial Cell,Urine Few per hpf (None-Few); Urobilinogen,Urine Normal (Normal)
[2021-03-16] MEDS: Tiotropium 10 INH DOSE IH SCH (10:45)
[2021-03-16] MEDS: Acetaminophen IV 1,000 MG/100 ML BAG IVPB SCH ×3 (12:50→18:10)
[2021-03-16] MEDS ORDERED: Ondansetron 4 MG/2 ML VIAL ONE (15:09)
[2021-03-16] MEDS ORDERED: Lidocaine -MPF 4% 5 ML AMPUL ONE (15:09)
[2021-03-16] MEDS ORDERED: Lidocaine -MPF 2% 5 ML VIAL ONE (15:09)
[2021-03-16] MEDS ORDERED: *HR* FentaNYL (PF) 100 MCG/2 ML VIAL ONE (15:43)
[2021-03-16] MEDS ORDERED: Albumin Human 5% 25.0 GM/500 ML IV.SOLN ONE (16:00)
[2021-03-16] MEDS ORDERED: *HR* Metoprolol 5 MG/5 ML VIAL IVP PRN ×2 (16:05→17:34)
[2021-03-16] MEDS ORDERED: Ipratropium Neb 0.5 MG NEBULIZER IH PRN (16:05)
[2021-03-16] MEDS ORDERED: *HR* FentaNYL (PF) 100 MCG/2 ML VIAL IVP PRN (16:05)
[2021-03-16] MEDS ORDERED: Albuterol 2.5 MG/3 ML NEBULIZER IH PRN (16:05)
[2021-03-16] MEDS ORDERED: Nitroglycerin 0.4 MG TAB.SUBL SL PRN (16:05)
[2021-03-16] MEDS ORDERED: Naloxone 0.4 MG/ML INJ IVP PRN (16:05)
[2021-03-16] MEDS ORDERED: Acetaminophen 325 MG TABLET PO PRN (19:23)
[2021-03-16] MEDS: Mirtazapine 15 MG TABLET PO SCH (22:13)
[2021-03-16] MEDS: Primidone 50 MG TABLET PO SCH (22:13)
[2021-03-17] MEDS: Acetaminophen IV 1,000 MG/100 ML BAG IVPB SCH ×5 (00:09→23:27)
[2021-03-17] MEDS: Piperacillin/Tazobactam 3.375 GM in 0.9 % Sodium Chloride Mini Bag 100 ML IVPB SCH ×4 (00:12→23:28)
[2021-03-17 05:24] LABS: Immature Granulocytes % 0.3 % (0-4)
[2021-03-17 05:26] LABS: Basophils % 0.2 %; Hematocrit 25.5 % (37.5-50.1); Hemoglobin 7.2 g/dL (12.9-16.9); Lymphocytes # 0.2 K/mcL (0.6-4.6); Lymphocytes % 3.5 %; Mean Corpuscular HGB Conc 28.2 g/dL (31.6-35.5); Mean Corpuscular Hemoglobin 26.9 pg (28.0-33.3); Mean Corpuscular Volume 95.1 fL (83.0-100.0); Mean Platelet Volume 10.5 fL (9.4-12.4); Monocytes # 0.4 K/mcL (0.0-1.3); Monocytes % 6.6 %; Neutrophils # 5.9 K/mcL (1.6-8.9); Platelet Count 124 K/mcL (140-400); Red Blood Count 2.68 M/mcL (4.19-5.50); Red Cell Distribution Width 16.7 % (11.5-14.5); Segmented Neutrophils % 89.4 %; White Blood Count 6.6 K/mcL (4.3-11.1)
[2021-03-17 05:49] LABS: Hypochromasia Present (Not Present); Platelet Estimate Normal (Normal)
[2021-03-17] MEDS: *HR* Heparin 5,000 UNIT/ML VIAL SQ SCH ×2 (05:54→16:58)
[2021-03-17 06:32] LABS: BUN/Creatinine Ratio 33 (6-26); Blood Urea Nitrogen 29 mg/dL (8-23); Calcium 7.4 mg/dL (8.6-10.3); Carbon Dioxide 34 mEq/L (23-29); Chloride 107 mEq/L (98-107); Glucose 105 mg/dL (70-105); Osmolality,Calculated 306 (280-300); Potassium 4.6 mEq/L (3.5-5.1); Sodium 145 mEq/L (136-145); eGFR For African Americans > 60 (> 60); eGFR For Non-African Americans > 60 (> 60)
[2021-03-17] MEDS ORDERED: 0.9 % Sodium Chloride 1,000 ML IVC ONE (06:47)
[2021-03-17 07:15] LABS: Bilirubin,Direct 0.2 mg/dL (0.0-0.2); Bilirubin,Indirect 0.2 mg/dL (0.0-1.0); Bilirubin,Total 0.4 mg/dL (0.3-1.0); Lipase 11 Units/L (11-82)
[2021-03-17] MEDS: Tiotropium 10 INH DOSE IH SCH (07:32)
[2021-03-17] MEDS: Aspirin Enteric Coated 81 MG Tablet PO SCH ×2 (12:47→12:53)
[2021-03-17] MEDS: Cyanocobalamin (B-12) 1,000 MCG TABLET PO SCH ×2 (12:49→13:24)
[2021-03-17] MEDS: Metoprolol XL (24 HR) Succ 25 MG TAB.ER.24H PO SCH ×2 (12:52→20:22)
[2021-03-17] MEDS: Primidone 50 MG TABLET PO SCH (20:21)
[2021-03-17] MEDS: Melatonin 3 MG TABLET PO PRN (20:21)
[2021-03-17] MEDS: Mirtazapine 15 MG TABLET PO SCH (20:22)
[2021-03-18] MEDS: *HR* Heparin 5,000 UNIT/ML VIAL SQ SCH (05:32)
[2021-03-18] MEDS: Acetaminophen IV 1,000 MG/100 ML BAG IVPB SCH (05:32)
[2021-03-18 06:50] LABS: Basophils % 0.4 %; Eosinophils # 0.2 K/mcL (0.0-0.6); Eosinophils % 4.6 %; Hematocrit 26.6 % (37.5-50.1); Hemoglobin 7.5 g/dL (12.9-16.9); Immature Granulocytes % 0.2 % (0-4); Lymphocytes # 0.7 K/mcL (0.6-4.6); Lymphocytes % 13.2 %; Mean Corpuscular HGB Conc 28.2 g/dL (31.6-35.5); Mean Corpuscular Hemoglobin 27.3 pg (28.0-33.3); Mean Corpuscular Volume 96.7 fL (83.0-100.0); Monocytes # 0.5 K/mcL (0.0-1.3); Monocytes % 10.2 %; Neutrophils # 3.6 K/mcL (1.6-8.9); Platelet Count 134 K/mcL (140-400); Red Blood Count 2.75 M/mcL (4.19-5.50); Red Cell Distribution Width 16.9 % (11.5-14.5); Segmented Neutrophils % 71.4 %
[2021-03-18 07:13] LABS: Alanine Aminotransferase 136 Units/L (7-52); Albumin 2.8 g/dL (3.5-5.7); Albumin/Globulin Ratio 1.2 (1.1-2.2); Alkaline Phosphatase 96 Units/L (34-104); Aspartate Amino Transferase 35 Units/L (13-39); BUN/Creatinine Ratio 33 (6-26); Bilirubin,Direct 0.1 mg/dL (0.0-0.2); Bilirubin,Indirect 0.2 mg/dL (0.0-1.0); Bilirubin,Total 0.3 mg/dL (0.3-1.0); Blood Urea Nitrogen 25 mg/dL (8-23); Calcium 7.5 mg/dL (8.6-10.3); Carbon Dioxide 35 mEq/L (23-29); Chloride 106 mEq/L (98-107); Globulin 2.4 g/dL (2.4-3.5); Glucose 81 mg/dL (70-105); Osmolality,Calculated 299 (280-300); Potassium 4.1 mEq/L (3.5-5.1); Sodium 143 mEq/L (136-145); Total Protein 5.2 g/dL (6.4-8.9); eGFR For African Americans > 60 (> 60); eGFR For Non-African Americans > 60 (> 60)
[2021-03-18 07:22] LABS: Anisocytosis 1+ (Not Present)
[2021-03-18 07:23] LABS: Platelet Estimate Normal (Normal)
[2021-03-18] MEDS: Tiotropium 10 INH DOSE IH SCH (07:36)
[2021-03-18] MEDS: Piperacillin/Tazobactam 3.375 GM in 0.9 % Sodium Chloride Mini Bag 100 ML IVPB SCH ×3 (08:45→23:40)
[2021-03-18] MEDS: Aspirin Enteric Coated 81 MG Tablet PO SCH (08:49)
[2021-03-18] MEDS: Metoprolol XL (24 HR) Succ 25 MG TAB.ER.24H PO SCH ×2 (08:50→21:15)
[2021-03-18] MEDS: Cyanocobalamin (B-12) 1,000 MCG TABLET PO SCH (08:50)
[2021-03-18] MEDS: Melatonin 3 MG TABLET PO PRN (21:15)
[2021-03-18] MEDS: Primidone 50 MG TABLET PO SCH (21:15)
[2021-03-18] MEDS: Apixaban 5 MG TABLET PO SCH (21:15)
[2021-03-18] MEDS: Mirtazapine 15 MG TABLET PO SCH (21:15)
[2021-03-19 04:42] LABS: Basophils % 0.3 %; Eosinophils # 0.3 K/mcL (0.0-0.6); Hematocrit 27.9 % (37.5-50.1); Hemoglobin 8.1 g/dL (12.9-16.9); Immature Granulocytes % 0.3 % (0-4); Lymphocytes # 0.7 K/mcL (0.6-4.6); Lymphocytes % 10.4 %; Mean Corpuscular Hemoglobin 27.4 pg (28.0-33.3); Mean Corpuscular Volume 94.3 fL (83.0-100.0); Mean Platelet Volume 11.8 fL (9.4-12.4); Monocytes # 0.7 K/mcL (0.0-1.3); Monocytes % 10.7 %; Neutrophils # 4.6 K/mcL (1.6-8.9); Platelet Count 164 K/mcL (140-400); Red Blood Count 2.96 M/mcL (4.19-5.50); Red Cell Distribution Width 16.6 % (11.5-14.5); Segmented Neutrophils % 73.3 %; White Blood Count 6.3 K/mcL (4.3-11.1)
[2021-03-19 04:56] LABS: BUN/Creatinine Ratio 28 (6-26); Blood Urea Nitrogen 21 mg/dL (8-23); Calcium 7.7 mg/dL (8.6-10.3); Carbon Dioxide 37 mEq/L (23-29); Chloride 103 mEq/L (98-107); Glucose 95 mg/dL (70-105); Osmolality,Calculated 297 (280-300); Potassium 3.8 mEq/L (3.5-5.1); Sodium 142 mEq/L (136-145); eGFR For African Americans > 60 (> 60); eGFR For Non-African Americans > 60 (> 60)
[2021-03-19] MEDS: Tiotropium 10 INH DOSE IH SCH (08:39)
[2021-03-19] MEDS: Piperacillin/Tazobactam 3.375 GM in 0.9 % Sodium Chloride Mini Bag 100 ML IVPB SCH (09:31)
[2021-03-19] MEDS: Apixaban 5 MG TABLET PO SCH ×2 (09:33→21:13)
[2021-03-19] MEDS: Cyanocobalamin (B-12) 1,000 MCG TABLET PO SCH (09:34)
[2021-03-19] MEDS: Metoprolol XL (24 HR) Succ 25 MG TAB.ER.24H PO SCH ×2 (09:34→21:14)
[2021-03-19 16:26] LABS: Adenovirus Not Detected (Not Detect); Bordetella Pertussis Not Detected (Not Detect); Chlamydophila pneumoniae Not Detected (Not Detect); Coronavirus 229E Not Detected (Not Detect); Coronavirus HKU1 Not Detected (Not Detect); Coronavirus NL63 Not Detected (Not Detect); Coronavirus OC43 Not Detected (Not Detect); Human Metapneumovirus Not Detected (Not Detect); Human Rhinovirus/Enterovirus Not Detected (Not Detect); Influenza A Subtype 2009 H1 Not Detected (Not Detect); Influenza B Not Detected (Not Detect); Mycoplasma pneumoniae Not Detected (Not Detect); Parainfluenza Virus 1 Not Detected (Not Detect); Parainfluenza Virus 2 Not Detected (Not Detect); Parainfluenza Virus 3 Not Detected (Not Detect); Parainfluenza Virus 4 Not Detected (Not Detect); Respiratory Syncytial Virus Not Detected (Not Detect); SARS-CoV-2 Not Detected (Not Detect)
[2021-03-19] MEDS: Primidone 50 MG TABLET PO SCH (21:13)
[2021-03-19] MEDS: Mirtazapine 15 MG TABLET PO SCH (21:14)
[2021-03-20 07:07] VITALS: BP 128/75; PULSE 66; TEMP 97.8; O2SAT 100
[2021-03-20] MEDS: Tiotropium 10 INH DOSE IH SCH (08:05)
[2021-03-20] MEDS: Cyanocobalamin (B-12) 1,000 MCG TABLET PO SCH (08:26)
[2021-03-20] MEDS: Metoprolol XL (24 HR) Succ 25 MG TAB.ER.24H PO SCH (08:26)
[2021-03-20] MEDS: Apixaban 5 MG TABLET PO SCH (08:26)
[2021-03-20 11:42] LABS: Influenza A PCR Negative (Negative); Influenza B PCR Negative (Negative); Resp. Syncytial Virus PCR Negative (Negative); SARS-CoV-2 by PCR (In House) Negative (Negative)
== END 2021-03-20 13:42 | DRG 418 ==
LOC: EMEROOARM 23:39 → 3ANU 23:39 → OBSVTOIN 03-14 03:33 → SUATTDRO 03-14 03:33 → 3ANU 03-14 05:14
PROVIDERS: ADMIT Internal Medicine; ATTEND Internal Medicine

== ENCOUNTER 2021-03-30 16:10 | Inpatient (IN) ==
[2021-03-30] MEDS ORDERED: Isovue-370 500 ML BOTTLE IVP ONE (16:37)
[2021-03-30 16:51] LABS: Basophils % 0.7 %; Eosinophils # 0.1 K/mcL (0.0-0.6); Eosinophils % 2.1 %; Hematocrit 31.7 % (37.5-50.1); Hemoglobin 9.2 g/dL (12.9-16.9); Immature Granulocytes % 0.5 % (0-4); Lymphocytes # 0.7 K/mcL (0.6-4.6); Lymphocytes % 12.6 %; Mean Platelet Volume 10.3 fL (9.4-12.4); Monocytes # 0.6 K/mcL (0.0-1.3); Monocytes % 11.1 %; Neutrophils # 4.2 K/mcL (1.6-8.9); Platelet Count 413 K/mcL (140-400); Red Blood Count 3.41 M/mcL (4.19-5.50); Red Cell Distribution Width 17.1 % (11.5-14.5); White Blood Count 5.8 K/mcL (4.3-11.1)
[2021-03-30 17:21] LABS: INR 1.6; Prothrombin Time 17.4 Seconds (9.4-12.1)
[2021-03-30 17:24] LABS: Activated Partial Thrombo Time 35.4 Seconds (26.0-36.0)
[2021-03-30 17:39] LABS: Influenza A PCR Negative (Negative); Influenza B PCR Negative (Negative); Resp. Syncytial Virus PCR Negative (Negative)
[2021-03-30 17:44] LABS: SARS-CoV-2 by PCR (In House) Negative (Negative)
[2021-03-30 17:45] LABS: Alanine Aminotransferase 17 Units/L (7-52); Albumin 2.6 g/dL (3.5-5.7); Albumin/Globulin Ratio 0.8 (1.1-2.2); Alkaline Phosphatase 81 Units/L (34-104); Aspartate Amino Transferase 19 Units/L (13-39); BUN/Creatinine Ratio 9 (6-26); Bilirubin,Direct 0.1 mg/dL (0.0-0.2); Bilirubin,Indirect 0.4 mg/dL (0.0-1.0); Bilirubin,Total 0.5 mg/dL (0.3-1.0); Blood Urea Nitrogen 6 mg/dL (8-23); Calcium 7.9 mg/dL (8.6-10.3); Carbon Dioxide 35 mEq/L (23-29); Chloride 100 mEq/L (98-107); Globulin 3.1 g/dL (2.4-3.5); Glucose 95 mg/dL (70-105); Lipase 33 Units/L (11-82); Osmolality,Calculated 287 (280-300); Potassium 4.2 mEq/L (3.5-5.1); Sodium 140 mEq/L (136-145); Total Protein 5.7 g/dL (6.4-8.9); Troponin I 0.03 ng/mL (< 0.04); eGFR For African Americans > 60 (> 60); eGFR For Non-African Americans > 60 (> 60)
[2021-03-30] MEDS ORDERED: cefTRIAXone 1,000 MG in Water for inj. (sterile) 10 ML IVP ONE (20:36)
[2021-03-30] MEDS ORDERED: Melatonin 3 MG TABLET PO PRN (21:25)
[2021-03-30] MEDS ORDERED: Ondansetron ODT 4 MG TAB.RAPDIS SL PRN (21:25)
[2021-03-30] MEDS ORDERED: Acetaminophen 325 MG TABLET PO PRN (21:25)
[2021-03-30] MEDS ORDERED: Naloxone 0.4 MG/ML INJ IVP PRN (21:25)
[2021-03-30] MEDS ORDERED: Ipratropium/Albuterol Neb 3 ML IH PRN (22:04)
[2021-03-31] MEDS ORDERED: cefTRIAXone 1,000 MG in 0.9 % Sodium Chloride Mini Bag 100 ML IVPB SCH (06:00)
[2021-03-31 08:07] LABS: Red Cell Distribution Width 16.9 % (11.5-14.5)
[2021-03-31 08:08] LABS: Basophils # 0.1 K/mcL (0.0-0.2); Basophils % 0.8 %; Eosinophils # 0.2 K/mcL (0.0-0.6); Eosinophils % 2.3 %; Hematocrit 35.3 % (37.5-50.1); Hemoglobin 9.8 g/dL (12.9-16.9); Immature Granulocytes % 0.2 % (0-4); Lymphocytes % 11.3 %; Mean Corpuscular HGB Conc 27.8 g/dL (31.6-35.5); Mean Corpuscular Hemoglobin 26.8 pg (28.0-33.3); Mean Corpuscular Volume 96.7 fL (83.0-100.0); Mean Platelet Volume 10.4 fL (9.4-12.4); Monocytes # 0.6 K/mcL (0.0-1.3); Monocytes % 8.8 %; Platelet Count 384 K/mcL (140-400); Red Blood Count 3.65 M/mcL (4.19-5.50); Segmented Neutrophils % 76.6 %; White Blood Count 6.6 K/mcL (4.3-11.1)
[2021-03-31 08:28] LABS: BUN/Creatinine Ratio 10 (6-26); Blood Urea Nitrogen 7 mg/dL (8-23); Calcium 8.3 mg/dL (8.6-10.3); Carbon Dioxide 34 mEq/L (23-29); Chloride 98 mEq/L (98-107); Glucose 64 mg/dL (70-105); Magnesium 1.7 mg/dL (1.6-2.6); Osmolality,Calculated 284 (280-300); Phosphorous 3.3 mg/dL (2.7-4.5); Potassium 4.1 mEq/L (3.5-5.1); Sodium 139 mEq/L (136-145); eGFR For African Americans > 60 (> 60); eGFR For Non-African Americans > 60 (> 60)
[2021-03-31 08:30] LABS: Lymphocytes # 0.8 K/mcL (0.6-4.6); Neutrophils # 5.1 K/mcL (1.6-8.9)
[2021-03-31] MEDS: *HR* OxyCODONE Immed Rel 5 MG TABLET PO PRN (11:08)
[2021-03-31 12:16] LABS: Platelet Estimate Normal (Normal)
[2021-03-31 12:17] LABS: Anisocytosis 1+ (Not Present); Hypochromasia Present (Not Present)
[2021-03-31] MEDS ORDERED: Vancomycin 1,250 MG/262.5 ML IV.SOLN IVPB SCH (13:00)
[2021-03-31] MEDS: Vancomycin 1,250 MG/262.5 ML IV.SOLN IVPB SCH (13:54)
[2021-03-31] MEDS ORDERED: Acetaminophen 325 MG TABLET PO PRN (16:43)
[2021-03-31] MEDS: Tiotropium 10 INH DOSE IH SCH (16:45)
[2021-03-31] MEDS: Levalbuterol Neb 1.25 MG/3 ML IH SCH ×2 (16:45→19:55)
[2021-03-31] MEDS: Cefepime HCl 2,000 MG in 0.9 % Sodium Chloride Mini Bag 100 ML IVPB SCH (16:50)
[2021-03-31] MEDS: Apixaban 5 MG TABLET PO SCH (19:57)
[2021-03-31] MEDS: Mirtazapine 15 MG TABLET PO SCH (19:57)
[2021-03-31] MEDS: Primidone 50 MG TABLET PO SCH (19:58)
[2021-03-31] MEDS: Metoprolol XL (24 HR) Succ 25 MG TAB.ER.24H PO SCH (20:00)
[2021-04-01] MEDS: Levalbuterol Neb 1.25 MG/3 ML IH SCH ×4 (03:50→20:26)
[2021-04-01] MEDS: Cefepime HCl 2,000 MG in 0.9 % Sodium Chloride Mini Bag 100 ML IVPB SCH ×2 (05:05→18:07)
[2021-04-01] MEDS: Tiotropium 10 INH DOSE IH SCH (07:49)
[2021-04-01] MEDS: Metoprolol XL (24 HR) Succ 25 MG TAB.ER.24H PO SCH ×2 (08:20→22:05)
[2021-04-01] MEDS: Cyanocobalamin (B-12) 1,000 MCG TABLET PO SCH (08:20)
[2021-04-01] MEDS: Apixaban 5 MG TABLET PO SCH ×2 (08:20→22:05)
[2021-04-01] MEDS: Cholecalciferol (D-3) 1,000 UNIT (25MCG) TABLET PO SCH (08:20)
[2021-04-01] MEDS: (Roflumilast [Daliresp] 500 MCG Tablet) PO SCH (08:21)
[2021-04-01 13:53] LABS: Hemoglobin 9.1 g/dL (12.9-16.9); Immature Granulocytes % 0.3 % (0-4); Red Cell Distribution Width 16.7 % (11.5-14.5)
[2021-04-01 13:55] LABS: Basophils % 0.5 %; Eosinophils # 0.1 K/mcL (0.0-0.6); Eosinophils % 1.5 %; Lymphocytes # 0.5 K/mcL (0.6-4.6); Lymphocytes % 6.6 %; Mean Corpuscular HGB Conc 28.4 g/dL (31.6-35.5); Mean Corpuscular Hemoglobin 27.4 pg (28.0-33.3); Mean Corpuscular Volume 96.4 fL (83.0-100.0); Mean Platelet Volume 10.4 fL (9.4-12.4); Monocytes # 0.6 K/mcL (0.0-1.3); Monocytes % 7.4 %; Neutrophils # 6.5 K/mcL (1.6-8.9); Platelet Count 349 K/mcL (140-400); Red Blood Count 3.32 M/mcL (4.19-5.50); Segmented Neutrophils % 83.7 %; White Blood Count 7.8 K/mcL (4.3-11.1)
[2021-04-01 14:15] LABS: Alanine Aminotransferase 13 Units/L (7-52); Albumin 2.6 g/dL (3.5-5.7); Albumin/Globulin Ratio 0.8 (1.1-2.2); Alkaline Phosphatase 68 Units/L (34-104); Aspartate Amino Transferase 14 Units/L (13-39); BUN/Creatinine Ratio 12 (6-26); Bilirubin,Total 0.4 mg/dL (0.3-1.0); Blood Urea Nitrogen 8 mg/dL (8-23); Calcium 8.5 mg/dL (8.6-10.3); Carbon Dioxide 38 mEq/L (23-29); Chloride 98 mEq/L (98-107); Globulin 3.2 g/dL (2.4-3.5); Glucose 92 mg/dL (70-105); Osmolality,Calculated 286 (280-300); Potassium 4.2 mEq/L (3.5-5.1); Sodium 139 mEq/L (136-145); Total Protein 5.8 g/dL (6.4-8.9); eGFR For African Americans > 60 (> 60); eGFR For Non-African Americans > 60 (> 60)
[2021-04-01 14:35] LABS: Anisocytosis 1+ (Not Present); Hypochromasia Present (Not Present); Poikilocytosis 1+ (Not Present)
[2021-04-01 14:36] LABS: Platelet Estimate Normal (Normal)
[2021-04-01] MEDS: Vancomycin 1,250 MG/262.5 ML IV.SOLN IVPB SCH (14:40)
[2021-04-01] MEDS: Mirtazapine 15 MG TABLET PO SCH (22:05)
[2021-04-01] MEDS: Primidone 50 MG TABLET PO SCH (22:05)
[2021-04-02] MEDS: *HR* HYDROcodone/Acet 5/325 mg TABLET PO PRN ×2 (03:16→14:02)
[2021-04-02] MEDS: Levalbuterol Neb 1.25 MG/3 ML IH SCH ×4 (03:46→20:07)
[2021-04-02] MEDS: Cefepime HCl 2,000 MG in 0.9 % Sodium Chloride Mini Bag 100 ML IVPB SCH ×2 (05:48→18:05)
[2021-04-02 06:55] LABS: Hemoglobin 8.7 g/dL (12.9-16.9); Immature Granulocytes % 0.4 % (0-4); Monocytes % 9.2 %; Red Cell Distribution Width 16.6 % (11.5-14.5)
[2021-04-02 06:57] LABS: Basophils # 0.1 K/mcL (0.0-0.2); Basophils % 0.9 %; Eosinophils # 0.2 K/mcL (0.0-0.6); Eosinophils % 4.5 %; Hematocrit 30.5 % (37.5-50.1); Lymphocytes # 0.5 K/mcL (0.6-4.6); Lymphocytes % 9.5 %; Mean Corpuscular HGB Conc 28.5 g/dL (31.6-35.5); Mean Corpuscular Hemoglobin 27.4 pg (28.0-33.3); Mean Corpuscular Volume 95.9 fL (83.0-100.0); Mean Platelet Volume 10.7 fL (9.4-12.4); Monocytes # 0.5 K/mcL (0.0-1.3); Platelet Count 285 K/mcL (140-400); Red Blood Count 3.18 M/mcL (4.19-5.50); Segmented Neutrophils % 75.5 %; White Blood Count 5.4 K/mcL (4.3-11.1)
[2021-04-02 07:13] LABS: Alanine Aminotransferase 12 Units/L (7-52); Albumin 2.5 g/dL (3.5-5.7); Albumin/Globulin Ratio 0.8 (1.1-2.2); Alkaline Phosphatase 68 Units/L (34-104); Aspartate Amino Transferase 15 Units/L (13-39); BUN/Creatinine Ratio 11 (6-26); Bilirubin,Total 0.5 mg/dL (0.3-1.0); Blood Urea Nitrogen 7 mg/dL (8-23); Calcium 8.1 mg/dL (8.6-10.3); Carbon Dioxide 37 mEq/L (23-29); Chloride 99 mEq/L (98-107); Globulin 3.2 g/dL (2.4-3.5); Glucose 102 mg/dL (70-105); Osmolality,Calculated 286 (280-300); Potassium 4.2 mEq/L (3.5-5.1); Sodium 139 mEq/L (136-145); Total Protein 5.7 g/dL (6.4-8.9); eGFR For African Americans > 60 (> 60); eGFR For Non-African Americans > 60 (> 60)
[2021-04-02 07:23] LABS: Neutrophils # 4.1 K/mcL (1.6-8.9)
[2021-04-02] MEDS: (Roflumilast [Daliresp] 500 MCG Tablet) PO SCH (07:24)
[2021-04-02] MEDS: Apixaban 5 MG TABLET PO SCH ×2 (07:24→20:29)
[2021-04-02] MEDS: Cholecalciferol (D-3) 1,000 UNIT (25MCG) TABLET PO SCH (07:24)
[2021-04-02] MEDS: Cyanocobalamin (B-12) 1,000 MCG TABLET PO SCH (07:24)
[2021-04-02] MEDS: Metoprolol XL (24 HR) Succ 25 MG TAB.ER.24H PO SCH ×2 (07:24→20:28)
[2021-04-02] MEDS: Tiotropium 10 INH DOSE IH SCH (07:45)
[2021-04-02 10:11] LABS: Target Cells 1+ (Not Present); Tear Drop Cells 1+ (Not Present)
[2021-04-02 10:12] LABS: Platelet Estimate Normal (Normal)
[2021-04-02] MEDS: Vancomycin 1,250 MG/262.5 ML IV.SOLN IVPB SCH (14:00)
[2021-04-02] MEDS: Primidone 50 MG TABLET PO SCH (20:27)
[2021-04-02] MEDS: Mirtazapine 15 MG TABLET PO SCH (20:29)
[2021-04-02] MEDS: *HR* OxyCODONE Immed Rel 5 MG TABLET PO PRN (22:30)
[2021-04-03 02:27] LABS: Basophils # 0.1 K/mcL (0.0-0.2); Basophils % 0.7 %; Eosinophils # 0.3 K/mcL (0.0-0.6); Eosinophils % 4.5 %; Hematocrit 32.7 % (37.5-50.1); Hemoglobin 9.2 g/dL (12.9-16.9); Immature Granulocytes % 0.1 % (0-4); Lymphocytes # 1.3 K/mcL (0.6-4.6); Lymphocytes % 16.9 %; Mean Corpuscular HGB Conc 28.1 g/dL (31.6-35.5); Mean Corpuscular Hemoglobin 26.7 pg (28.0-33.3); Mean Corpuscular Volume 95.1 fL (83.0-100.0); Mean Platelet Volume 10.6 fL (9.4-12.4); Monocytes # 0.7 K/mcL (0.0-1.3); Monocytes % 9.9 %; Neutrophils # 5.1 K/mcL (1.6-8.9); Platelet Count 321 K/mcL (140-400); Red Blood Count 3.44 M/mcL (4.19-5.50); Red Cell Distribution Width 16.6 % (11.5-14.5); Segmented Neutrophils % 67.9 %; White Blood Count 7.5 K/mcL (4.3-11.1)
[2021-04-03 02:48] LABS: Alanine Aminotransferase 12 Units/L (7-52); Albumin 2.7 g/dL (3.5-5.7); Albumin/Globulin Ratio 0.8 (1.1-2.2); Alkaline Phosphatase 70 Units/L (34-104); Aspartate Amino Transferase 16 Units/L (13-39); BUN/Creatinine Ratio 12 (6-26); Bilirubin,Total 0.5 mg/dL (0.3-1.0); Blood Urea Nitrogen 7 mg/dL (8-23); Calcium 8.3 mg/dL (8.6-10.3); Carbon Dioxide 36 mEq/L (23-29); Chloride 98 mEq/L (98-107); Globulin 3.6 g/dL (2.4-3.5); Glucose 118 mg/dL (70-105); Osmolality,Calculated 285 (280-300); Sodium 138 mEq/L (136-145); Total Protein 6.3 g/dL (6.4-8.9); eGFR For African Americans > 60 (> 60); eGFR For Non-African Americans > 60 (> 60)
[2021-04-03 03:27] LABS: Anisocytosis 1+ (Not Present)
[2021-04-03 03:28] LABS: Hypochromasia Present (Not Present); Platelet Estimate Normal (Normal)
[2021-04-03] MEDS: Levalbuterol Neb 1.25 MG/3 ML IH SCH ×4 (03:34→21:03)
[2021-04-03] MEDS: Cefepime HCl 2,000 MG in 0.9 % Sodium Chloride Mini Bag 100 ML IVPB SCH ×2 (05:17→17:30)
[2021-04-03] MEDS: Tiotropium 10 INH DOSE IH SCH (08:15)
[2021-04-03] MEDS: Apixaban 5 MG TABLET PO SCH ×2 (09:12→19:57)
[2021-04-03] MEDS: Cyanocobalamin (B-12) 1,000 MCG TABLET PO SCH (09:12)
[2021-04-03] MEDS: Cholecalciferol (D-3) 1,000 UNIT (25MCG) TABLET PO SCH (09:12)
[2021-04-03] MEDS: (Roflumilast [Daliresp] 500 MCG Tablet) PO SCH (09:12)
[2021-04-03] MEDS: Metoprolol XL (24 HR) Succ 25 MG TAB.ER.24H PO SCH ×2 (09:12→19:57)
[2021-04-03] MEDS ORDERED: methylPREDNISolone 125 MG/2 ML VIAL IVP ONE (09:29)
[2021-04-03] MEDS ORDERED: Furosemide 40 MG/4 ML VIAL IVP ONE (09:29)
[2021-04-03] MEDS ORDERED: methylPREDNISolone 125 MG/2 ML VIAL ONE (09:30)
[2021-04-03] MEDS ORDERED: Furosemide 40 MG/4 ML VIAL ONE (09:30)
[2021-04-03] MEDS ORDERED: Albuterol 2.5 MG/3 ML NEBULIZER IH PRN (09:35)
[2021-04-03] MEDS: Primidone 50 MG TABLET PO SCH (19:57)
[2021-04-03] MEDS: Mirtazapine 15 MG TABLET PO SCH (19:57)
[2021-04-04] MEDS: Levalbuterol Neb 1.25 MG/3 ML IH SCH ×4 (03:49→20:48)
[2021-04-04] MEDS: Cefepime HCl 2,000 MG in 0.9 % Sodium Chloride Mini Bag 100 ML IVPB SCH ×2 (04:42→18:00)
[2021-04-04 05:16] LABS: Immature Granulocytes % 0.4 % (0-4); Red Cell Distribution Width 16.5 % (11.5-14.5)
[2021-04-04 05:18] LABS: Basophils % 0.5 %; Hematocrit 35.6 % (37.5-50.1); Hemoglobin 10.3 g/dL (12.9-16.9); Lymphocytes # 0.4 K/mcL (0.6-4.6); Lymphocytes % 7.9 %; Mean Corpuscular HGB Conc 28.9 g/dL (31.6-35.5); Mean Corpuscular Hemoglobin 27.5 pg (28.0-33.3); Mean Corpuscular Volume 95.2 fL (83.0-100.0); Mean Platelet Volume 11.5 fL (9.4-12.4); Monocytes # 0.6 K/mcL (0.0-1.3); Monocytes % 10.6 %; Neutrophils # 4.5 K/mcL (1.6-8.9); Platelet Count 260 K/mcL (140-400); Red Blood Count 3.74 M/mcL (4.19-5.50); Segmented Neutrophils % 80.6 %; White Blood Count 5.6 K/mcL (4.3-11.1)
[2021-04-04 05:27] LABS: Alanine Aminotransferase 10 Units/L (7-52); Albumin 2.9 g/dL (3.5-5.7); Albumin/Globulin Ratio 0.9 (1.1-2.2); Alkaline Phosphatase 72 Units/L (34-104); Aspartate Amino Transferase 15 Units/L (13-39); BUN/Creatinine Ratio 20 (6-26); Bilirubin,Total 0.4 mg/dL (0.3-1.0); Blood Urea Nitrogen 13 mg/dL (8-23); Calcium 8.2 mg/dL (8.6-10.3); Carbon Dioxide 38 mEq/L (23-29); Chloride 95 mEq/L (98-107); Globulin 3.4 g/dL (2.4-3.5); Glucose 99 mg/dL (70-105); Osmolality,Calculated 288 (280-300); Potassium 4.4 mEq/L (3.5-5.1); Sodium 139 mEq/L (136-145); Total Protein 6.3 g/dL (6.4-8.9); eGFR For African Americans > 60 (> 60); eGFR For Non-African Americans > 60 (> 60)
[2021-04-04] MEDS: Tiotropium 10 INH DOSE IH SCH (07:40)
[2021-04-04] MEDS: Cholecalciferol (D-3) 1,000 UNIT (25MCG) TABLET PO SCH (10:22)
[2021-04-04] MEDS: predniSONE 20 MG TABLET PO SCH (10:22)
[2021-04-04] MEDS: Apixaban 5 MG TABLET PO SCH ×2 (10:22→20:38)
[2021-04-04] MEDS: Metoprolol XL (24 HR) Succ 25 MG TAB.ER.24H PO SCH ×2 (10:22→20:38)
[2021-04-04] MEDS: Cyanocobalamin (B-12) 1,000 MCG TABLET PO SCH (10:22)
[2021-04-04] MEDS: *HR* HYDROcodone/Acet 5/325 mg TABLET PO PRN (11:56)
[2021-04-04] MEDS: *HR* OxyCODONE Immed Rel 5 MG TABLET PO PRN (15:05)
[2021-04-04] MEDS: Doxycycline 100 MG in 0.9 % Sodium Chloride Mini Bag 100 ML IVPB SCH (18:41)
[2021-04-04] MEDS: Primidone 50 MG TABLET PO SCH (20:37)
[2021-04-04] MEDS: Mirtazapine 15 MG TABLET PO SCH (20:38)
[2021-04-05 03:05] VITALS: O2SAT 100
[2021-04-05] MEDS: *HR* HYDROcodone/Acet 5/325 mg TABLET PO PRN (03:14)
[2021-04-05] MEDS: Levalbuterol Neb 1.25 MG/3 ML IH SCH ×2 (03:25→08:38)
[2021-04-05] MEDS: Doxycycline 100 MG in 0.9 % Sodium Chloride Mini Bag 100 ML IVPB SCH (04:15)
[2021-04-05] MEDS: Cefepime HCl 2,000 MG in 0.9 % Sodium Chloride Mini Bag 100 ML IVPB SCH (04:15)
[2021-04-05 07:18] VITALS: BP 129/75; PULSE 69; TEMP 97.4
[2021-04-05] MEDS: Tiotropium 10 INH DOSE IH SCH (08:36)
[2021-04-05] MEDS: Cyanocobalamin (B-12) 1,000 MCG TABLET PO SCH (08:53)
[2021-04-05] MEDS: predniSONE 20 MG TABLET PO SCH (08:53)
[2021-04-05] MEDS: *HR* OxyCODONE Immed Rel 5 MG TABLET PO PRN (08:53)
[2021-04-05] MEDS: Cholecalciferol (D-3) 1,000 UNIT (25MCG) TABLET PO SCH (08:53)
[2021-04-05] MEDS: Metoprolol XL (24 HR) Succ 25 MG TAB.ER.24H PO SCH (08:53)
[2021-04-05] MEDS: Apixaban 5 MG TABLET PO SCH (08:54)
[2021-04-05] MEDS ORDERED: polyethylene glycoL 3350 17 GM POWD.PACK PO SCH (09:15)
[2021-04-05 10:44] LABS: Basophils # 0.1 K/mcL (0.0-0.2); Basophils % 0.9 %; Eosinophils # 0.2 K/mcL (0.0-0.6); Eosinophils % 3.2 %; Hematocrit 29.7 % (37.5-50.1); Immature Granulocytes % 0.2 % (0-4); Lymphocytes # 0.6 K/mcL (0.6-4.6); Lymphocytes % 11.4 %; Mean Corpuscular Hemoglobin 27.6 pg (28.0-33.3); Mean Corpuscular Volume 95.2 fL (83.0-100.0); Mean Platelet Volume 11.1 fL (9.4-12.4); Monocytes # 0.5 K/mcL (0.0-1.3); Monocytes % 10.1 %; Neutrophils # 3.9 K/mcL (1.6-8.9); Platelet Count 227 K/mcL (140-400); Red Blood Count 3.12 M/mcL (4.19-5.50); Red Cell Distribution Width 16.7 % (11.5-14.5); Segmented Neutrophils % 74.2 %; White Blood Count 5.3 K/mcL (4.3-11.1)
[2021-04-05 10:49] LABS: Hemoglobin 8.6 g/dL (12.9-16.9)
[2021-04-05 11:10] LABS: Alanine Aminotransferase 10 Units/L (7-52); Albumin 2.6 g/dL (3.5-5.7); Albumin/Globulin Ratio 0.8 (1.1-2.2); Alkaline Phosphatase 58 Units/L (34-104); Aspartate Amino Transferase 16 Units/L (13-39); BUN/Creatinine Ratio 25 (6-26); Bilirubin,Total 0.4 mg/dL (0.3-1.0); Blood Urea Nitrogen 19 mg/dL (8-23); Calcium 7.9 mg/dL (8.6-10.3); Carbon Dioxide 40 mEq/L (23-29); Chloride 94 mEq/L (98-107); Globulin 3.1 g/dL (2.4-3.5); Glucose 109 mg/dL (70-105); Osmolality,Calculated 283 (280-300); Potassium 3.8 mEq/L (3.5-5.1); Sodium 135 mEq/L (136-145); Total Protein 5.7 g/dL (6.4-8.9); eGFR For African Americans > 60 (> 60); eGFR For Non-African Americans > 60 (> 60)
[2021-04-05 11:26] LABS: Influenza A PCR Negative (Negative); Influenza B PCR Negative (Negative); Resp. Syncytial Virus PCR Negative (Negative)
[2021-04-05 11:27] LABS: SARS-CoV-2 by PCR (In House) Negative (Negative)
== END 2021-04-05 16:33 | DRG 193 ==
LOC: EMEROOARM 16:10 → 3BNU 16:10 → SUATTDRO 21:51 → 3BNU 23:40
PROVIDERS: ADMIT Internal Medicine; ATTEND Nurse Practitioner

== ENCOUNTER 2021-06-27 17:33 | Inpatient (IN) ==
[2021-06-27] MEDS ORDERED: Pantoprazole 40 MG VIAL IVP ONE (18:07)
[2021-06-27] MEDS ORDERED: GI Cocktail 40 ML EACH PO ONE (18:07)
[2021-06-27] MEDS ORDERED: Famotidine 20 MG/2 ML VIAL IVP ONE (18:11)
[2021-06-27 19:23] LABS: Basophils # 0.1 K/mcL (0.0-0.2); Basophils % 0.7 %; Eosinophils # 0.2 K/mcL (0.0-0.6); Eosinophils % 2.5 %; Hematocrit 33.2 % (37.5-50.1); Hemoglobin 9.9 g/dL (12.9-16.9); Immature Granulocytes % 0.3 % (0-4); Lymphocytes # 0.7 K/mcL (0.6-4.6); Lymphocytes % 9.3 %; Mean Corpuscular HGB Conc 29.8 g/dL (31.6-35.5); Mean Corpuscular Hemoglobin 28.3 pg (28.0-33.3); Mean Corpuscular Volume 94.9 fL (83.0-100.0); Mean Platelet Volume 10.2 fL (9.4-12.4); Monocytes # 0.8 K/mcL (0.0-1.3); Monocytes % 10.3 %; Neutrophils # 5.9 K/mcL (1.6-8.9); Platelet Count 265 K/mcL (140-400); Red Cell Distribution Width 15.4 % (11.5-14.5); Segmented Neutrophils % 76.9 %; White Blood Count 7.6 K/mcL (4.3-11.1)
[2021-06-27 19:31] LABS: INR 1.6; Prothrombin Time 18.1 Seconds (9.4-12.1)
[2021-06-27 19:44] LABS: Bilirubin,Urine Negative (Negative); Blood,Urine Negative (Negative); Clarity,Urine Clear (Clear); Color,Urine Yellow (Yellow); Glucose,Urine (UA) Normal (Normal); Ketones,Urine Negative (Negative); Leukocyte Esterase,Urine Trace (Negative); Nitrite,Urine Negative (Negative); Protein,Urine Trace mg/dL (Neg-Trace); Specific Gravity,Urine 1.026 (1.010-1.025); Urobilinogen,Urine Normal (Normal)
[2021-06-27 19:45] LABS: BUN/Creatinine Ratio 12 (6-26); Blood Urea Nitrogen 8 mg/dL (8-23); Calcium 7.8 mg/dL (8.6-10.3); Carbon Dioxide 35 mEq/L (23-29); Chloride 97 mEq/L (98-107); Glucose 124 mg/dL (70-105); Osmolality,Calculated 280 (280-300); Potassium 4.1 mEq/L (3.5-5.1); Sodium 135 mEq/L (136-145); Troponin I < 0.03 ng/mL (< 0.04); eGFR For African Americans > 60 (> 60); eGFR For Non-African Americans > 60 (> 60)
[2021-06-27 19:55] LABS: Mucus,Urine Moderate per lpf (None-Few); Squamous Epithelial Cell,Urine Few per hpf (None-Few)
[2021-06-27 19:56] LABS: Calcium Oxalate Crystals,Urine Present per hpf; WBC,Urine 0-3 per hpf (0-3)
[2021-06-27 20:07] LABS: Influenza A PCR Negative (Negative); Influenza B PCR Negative (Negative); Resp. Syncytial Virus PCR Negative (Negative)
[2021-06-27 20:09] LABS: SARS-CoV-2 by PCR (In House) Negative (Negative)
[2021-06-28] MEDS ORDERED: Nitroglycerin 0.4 MG TAB.SUBL SL PRN (00:29)
[2021-06-28] MEDS ORDERED: Calcium Gluconate 1gm/50mL 1 GM/50 ML BAG IVPB ONE ×2 (00:36→03:53)
[2021-06-28] MEDS: Morphine Sulfate 2 MG/ML SYRINGE IVP PRN ×2 (00:44→06:44)
[2021-06-28] MEDS ORDERED: Perflutren Lipid Microsphere 1.3 ML in 0.9 % Sodium Chloride 8.7 ML IVP PRN (01:32)
[2021-06-28] MEDS ORDERED: Acetaminophen 325 MG TABLET PO PRN (01:48)
[2021-06-28] MEDS ORDERED: Ondansetron 4 MG/2 ML VIAL IVP PRN (01:48)
[2021-06-28] MEDS ORDERED: Naloxone 0.4 MG/ML INJ IVP PRN (01:48)
[2021-06-28] MEDS ORDERED: *HR* Heparin 5,000 UNIT/ML VIAL IVP PRN ×2 (02:18)
[2021-06-28 02:25] LABS: Hematocrit 30.3 % (37.5-50.1); Hemoglobin 9.1 g/dL (12.9-16.9); Mean Corpuscular Volume 93.2 fL (83.0-100.0); Mean Platelet Volume 9.2 fL (9.4-12.4); Platelet Count 209 K/mcL (140-400); Red Blood Count 3.25 M/mcL (4.19-5.50); Red Cell Distribution Width 15.2 % (11.5-14.5); White Blood Count 5.2 K/mcL (4.3-11.1)
[2021-06-28] MEDS ORDERED: Heparin 25,000UNIT/250ML 1/2NS 25,000 UNIT/250 ML IV.SOLN IVC SCH ×2 (02:30)
[2021-06-28 02:47] LABS: BUN/Creatinine Ratio 13 (6-26); Blood Urea Nitrogen 8 mg/dL (8-23); Calcium 7.8 mg/dL (8.6-10.3); Carbon Dioxide 36 mEq/L (23-29); Chloride 99 mEq/L (98-107); Chol/HDL Ratio 2.7 (0-4.9); Cholesterol 75 mg/dL (< 200); Glucose 103 mg/dL (70-105); HDL Cholesterol 28 mg/dL (40-59); LDL Cholesterol,Calculated 38 mg/dL (< 100); Magnesium 1.8 mg/dL (1.6-2.6); Osmolality,Calculated 281 (280-300); Potassium 4.4 mEq/L (3.5-5.1); Sodium 136 mEq/L (136-145); Triglycerides 44 mg/dL (< 150); eGFR For African Americans > 60 (> 60); eGFR For Non-African Americans > 60 (> 60)
[2021-06-28 03:07] LABS: Heparin anti-factor XA UFH 0.56 IU/mL (0.30-0.70)
[2021-06-28 03:09] LABS: Activated Partial Thrombo Time 36.7 Seconds (26.0-36.0)
[2021-06-28] MEDS ORDERED: Bisacodyl 10 MG RECTAL SUPPOSITORY RC PRN (04:10)
[2021-06-28] MEDS ORDERED: Levalbuterol 1 PUFF INHALER IH PRN (04:10)
[2021-06-28] MEDS ORDERED: Regadenoson 0.4 MG/5 ML SYRINGE IVP ONE (07:25)
[2021-06-28] MEDS ORDERED: NON-FORMULARY MEDICATION 1 EACH EACH (Roflumilast [Daliresp] 500 MCG Tablet) PO SCH (09:00)
[2021-06-28] MEDS: Cholecalciferol (D-3) 1,000 UNIT (25MCG) TABLET PO SCH (12:15)
[2021-06-28] MEDS: Cyanocobalamin (B-12) 1,000 MCG TABLET PO SCH (12:16)
[2021-06-28] MEDS: polyethylene glycoL 3350 17 GM POWD.PACK PO SCH (12:16)
[2021-06-28] MEDS: TIOTROPIUM BR IH SCH (12:19)
[2021-06-28] MEDS: OLODATEROL HCL IH SCH (12:19)
[2021-06-28] MEDS: Ketoconazole 2% CRM 15 GM TUBE TP SCH (12:19)
[2021-06-28] MEDS ORDERED: Furosemide 20 MG/2 ML VIAL IVP ONE (14:42)
[2021-06-28] MEDS ORDERED: Metoprolol XL (24 HR) Succ 25 MG TAB.ER.24H PO SCH (14:45)
[2021-06-28] MEDS: Metoprolol XL (24 HR) Succ 50 MG TAB.ER.24H PO SCH (15:06)
[2021-06-28] MEDS ORDERED: Mag Hydrox/Al Hydrox/Simeth 30 ML UDC PO ONE (15:17)
[2021-06-28] MEDS: Levalbuterol Neb 1.25 MG/3 ML IH SCH ×2 (16:06→20:50)
[2021-06-28] MEDS: *HR* LORazepam 0.5 MG TABLET PO SCH (19:50)
[2021-06-28] MEDS: Apixaban 5 MG TABLET PO SCH (19:50)
[2021-06-28] MEDS: Primidone 50 MG TABLET PO SCH (19:50)
[2021-06-28] MEDS: Mirtazapine 15 MG TABLET PO SCH (19:51)
[2021-06-29] MEDS: Levalbuterol Neb 1.25 MG/3 ML IH SCH ×4 (03:33→19:59)
[2021-06-29 03:53] LABS: Hematocrit 31.3 % (37.5-50.1); Hemoglobin 9.2 g/dL (12.9-16.9); Mean Corpuscular HGB Conc 29.4 g/dL (31.6-35.5); Mean Corpuscular Hemoglobin 27.9 pg (28.0-33.3); Mean Corpuscular Volume 94.8 fL (83.0-100.0); Mean Platelet Volume 10.7 fL (9.4-12.4); Platelet Count 272 K/mcL (140-400); Red Cell Distribution Width 15.3 % (11.5-14.5); White Blood Count 6.8 K/mcL (4.3-11.1)
[2021-06-29 04:12] LABS: BUN/Creatinine Ratio 19 (6-26); Blood Urea Nitrogen 13 mg/dL (8-23); Calcium 8.3 mg/dL (8.6-10.3); Carbon Dioxide 37 mEq/L (23-29); Chloride 98 mEq/L (98-107); Glucose 97 mg/dL (70-105); Osmolality,Calculated 284 (280-300); Potassium 4.7 mEq/L (3.5-5.1); Sodium 137 mEq/L (136-145); eGFR For African Americans > 60 (> 60); eGFR For Non-African Americans > 60 (> 60)
[2021-06-29] MEDS: polyethylene glycoL 3350 17 GM POWD.PACK PO SCH (09:05)
[2021-06-29] MEDS: Morphine Sulfate 2 MG/ML SYRINGE IVP PRN (09:08)
[2021-06-29] MEDS: Famotidine 20 MG TABLET PO SCH (09:11)
[2021-06-29] MEDS: Metoprolol XL (24 HR) Succ 50 MG TAB.ER.24H PO SCH (09:11)
[2021-06-29] MEDS: Cholecalciferol (D-3) 1,000 UNIT (25MCG) TABLET PO SCH (09:11)
[2021-06-29] MEDS: Cyanocobalamin (B-12) 1,000 MCG TABLET PO SCH (09:12)
[2021-06-29] MEDS: Furosemide 20 MG TABLET PO SCH (09:12)
[2021-06-29] MEDS: predniSONE 20 MG TABLET PO SCH (09:12)
[2021-06-29] MEDS: Apixaban 5 MG TABLET PO SCH ×2 (09:12→20:59)
[2021-06-29] MEDS: TIOTROPIUM BR IH SCH (09:13)
[2021-06-29] MEDS: Ketoconazole 2% CRM 15 GM TUBE TP SCH (09:13)
[2021-06-29] MEDS: OLODATEROL HCL IH SCH (09:13)
[2021-06-29] MEDS: Azithromycin 250 MG TABLET PO SCH (11:25)
[2021-06-29] MEDS: Cefdinir 300 MG CAPSULE PO SCH ×2 (11:25→20:59)
[2021-06-29] MEDS ORDERED: Furosemide 20 MG/2 ML VIAL IVP ONE (14:00)
[2021-06-29] MEDS: Sucralfate 1 GM TABLET PO SCH (18:20)
[2021-06-29] MEDS: Mirtazapine 15 MG TABLET PO SCH (20:58)
[2021-06-29] MEDS: Primidone 50 MG TABLET PO SCH (20:59)
[2021-06-29] MEDS: *HR* LORazepam 0.5 MG TABLET PO SCH (20:59)
[2021-06-29] MEDS ORDERED: *HR* Metoprolol 5 MG/5 ML VIAL IVP ONE (23:50)
[2021-06-30] MEDS: Levalbuterol Neb 1.25 MG/3 ML IH SCH ×4 (04:09→19:54)
[2021-06-30 06:17] LABS: Basophils % 0.5 %; Eosinophils # 0.1 K/mcL (0.0-0.6); Eosinophils % 1.1 %; Hematocrit 30.3 % (37.5-50.1); Immature Granulocytes % 0.3 % (0-4); Lymphocytes # 0.5 K/mcL (0.6-4.6); Lymphocytes % 8.6 %; Mean Corpuscular HGB Conc 29.7 g/dL (31.6-35.5); Mean Corpuscular Hemoglobin 28.2 pg (28.0-33.3); Mean Platelet Volume 10.5 fL (9.4-12.4); Monocytes # 0.6 K/mcL (0.0-1.3); Monocytes % 10.4 %; Neutrophils # 4.9 K/mcL (1.6-8.9); Platelet Count 243 K/mcL (140-400); Red Blood Count 3.19 M/mcL (4.19-5.50); Red Cell Distribution Width 15.6 % (11.5-14.5); Segmented Neutrophils % 79.1 %; White Blood Count 6.1 K/mcL (4.3-11.1)
[2021-06-30 06:43] LABS: Alanine Aminotransferase 7 Units/L (7-52); Albumin 2.2 g/dL (3.5-5.7); Albumin/Globulin Ratio 0.7 (1.1-2.2); Alkaline Phosphatase 54 Units/L (34-104); Aspartate Amino Transferase 13 Units/L (13-39); BUN/Creatinine Ratio 27 (6-26); Bilirubin,Total 0.3 mg/dL (0.3-1.0); Blood Urea Nitrogen 17 mg/dL (8-23); Carbon Dioxide 38 mEq/L (23-29); Chloride 99 mEq/L (98-107); Globulin 3.2 g/dL (2.4-3.5); Glucose 102 mg/dL (70-105); Osmolality,Calculated 288 (280-300); Potassium 4.4 mEq/L (3.5-5.1); Sodium 138 mEq/L (136-145); Total Protein 5.4 g/dL (6.4-8.9); eGFR For African Americans > 60 (> 60); eGFR For Non-African Americans > 60 (> 60)
[2021-06-30] MEDS ORDERED: Tiotropium 10 INH DOSE IH ONE (07:20)
[2021-06-30] MEDS: Tiotropium 10 INH DOSE IH SCH (07:48)
[2021-06-30] MEDS: predniSONE 20 MG TABLET PO SCH (08:12)
[2021-06-30] MEDS: Apixaban 5 MG TABLET PO SCH ×2 (08:13→20:00)
[2021-06-30] MEDS: Famotidine 20 MG TABLET PO SCH (08:13)
[2021-06-30] MEDS: Cefdinir 300 MG CAPSULE PO SCH ×2 (08:13→20:01)
[2021-06-30] MEDS: Cyanocobalamin (B-12) 1,000 MCG TABLET PO SCH (08:13)
[2021-06-30] MEDS: Azithromycin 250 MG TABLET PO SCH (08:13)
[2021-06-30] MEDS: Furosemide 20 MG TABLET PO SCH (08:13)
[2021-06-30] MEDS: Metoprolol XL (24 HR) Succ 50 MG TAB.ER.24H PO SCH (08:13)
[2021-06-30] MEDS: polyethylene glycoL 3350 17 GM POWD.PACK PO SCH (08:14)
[2021-06-30] MEDS: Ketoconazole 2% CRM 15 GM TUBE TP SCH (08:14)
[2021-06-30] MEDS: Cholecalciferol (D-3) 1,000 UNIT (25MCG) TABLET PO SCH (08:14)
[2021-06-30] MEDS: Sucralfate 1 GM TABLET PO SCH ×2 (08:14→17:49)
[2021-06-30] MEDS: Morphine Sulfate 2 MG/ML SYRINGE IVP PRN (10:13)
[2021-06-30] MEDS: Primidone 50 MG TABLET PO SCH (20:00)
[2021-06-30] MEDS: Mirtazapine 15 MG TABLET PO SCH (20:01)
[2021-06-30] MEDS: *HR* LORazepam 0.5 MG TABLET PO SCH (20:01)
[2021-07-01] MEDS: Levalbuterol Neb 1.25 MG/3 ML IH SCH ×4 (03:15→19:25)
[2021-07-01 06:39] LABS: Basophils % 0.5 %; Eosinophils % 0.7 %; Hematocrit 28.9 % (37.5-50.1); Hemoglobin 8.8 g/dL (12.9-16.9); Immature Granulocytes % 0.3 % (0-4); Lymphocytes # 0.8 K/mcL (0.6-4.6); Lymphocytes % 13.9 %; Mean Corpuscular HGB Conc 30.4 g/dL (31.6-35.5); Mean Corpuscular Hemoglobin 28.8 pg (28.0-33.3); Mean Corpuscular Volume 94.4 fL (83.0-100.0); Mean Platelet Volume 10.5 fL (9.4-12.4); Monocytes # 0.7 K/mcL (0.0-1.3); Monocytes % 11.1 %; Neutrophils # 4.3 K/mcL (1.6-8.9); Platelet Count 235 K/mcL (140-400); Red Blood Count 3.06 M/mcL (4.19-5.50); Red Cell Distribution Width 15.8 % (11.5-14.5); Segmented Neutrophils % 73.5 %; White Blood Count 5.8 K/mcL (4.3-11.1)
[2021-07-01 07:00] LABS: Alanine Aminotransferase 8 Units/L (7-52); Albumin 2.2 g/dL (3.5-5.7); Albumin/Globulin Ratio 0.7 (1.1-2.2); Alkaline Phosphatase 51 Units/L (34-104); Aspartate Amino Transferase 15 Units/L (13-39); BUN/Creatinine Ratio 26 (6-26); Bilirubin,Total 0.2 mg/dL (0.3-1.0); Blood Urea Nitrogen 15 mg/dL (8-23); Carbon Dioxide 40 mEq/L (23-29); Chloride 98 mEq/L (98-107); Globulin 3.2 g/dL (2.4-3.5); Glucose 96 mg/dL (70-105); Osmolality,Calculated 287 (280-300); Potassium 4.4 mEq/L (3.5-5.1); Sodium 138 mEq/L (136-145); Total Protein 5.4 g/dL (6.4-8.9); eGFR For African Americans > 60 (> 60); eGFR For Non-African Americans > 60 (> 60)
[2021-07-01] MEDS: Tiotropium 10 INH DOSE IH SCH (07:46)
[2021-07-01] MEDS: Morphine Sulfate 2 MG/ML SYRINGE IVP PRN (09:10)
[2021-07-01] MEDS: predniSONE 20 MG TABLET PO SCH (09:11)
[2021-07-01] MEDS: Cyanocobalamin (B-12) 1,000 MCG TABLET PO SCH (09:11)
[2021-07-01] MEDS: Cefdinir 300 MG CAPSULE PO SCH ×2 (09:11→22:18)
[2021-07-01] MEDS: Apixaban 5 MG TABLET PO SCH ×2 (09:11→22:18)
[2021-07-01] MEDS: Cholecalciferol (D-3) 1,000 UNIT (25MCG) TABLET PO SCH (09:11)
[2021-07-01] MEDS: Furosemide 20 MG TABLET PO SCH (09:11)
[2021-07-01] MEDS: Sucralfate 1 GM TABLET PO SCH ×2 (09:12→17:03)
[2021-07-01] MEDS: Azithromycin 250 MG TABLET PO SCH (09:12)
[2021-07-01] MEDS: Ketoconazole 2% CRM 15 GM TUBE TP SCH (09:12)
[2021-07-01] MEDS: polyethylene glycoL 3350 17 GM POWD.PACK PO SCH (09:12)
[2021-07-01] MEDS: Famotidine 20 MG TABLET PO SCH (09:12)
[2021-07-01] MEDS: Metoprolol XL (24 HR) Succ 50 MG TAB.ER.24H PO SCH (09:12)
[2021-07-01] MEDS ORDERED: Mag Hydrox/Al Hydrox/Simeth 30 ML UDC PO PRN (10:11)
[2021-07-01] MEDS ORDERED: *HR* OxyCODONE Immed Rel 5 MG TABLET PO PRN (10:12)
[2021-07-01] MEDS ORDERED: Furosemide 20 MG/2 ML VIAL IVP ONE (14:00)
[2021-07-01] MEDS: Magic Mouthwash 10 ML UD Cup PO SCH (17:05)
[2021-07-01] MEDS: *HR* LORazepam 0.5 MG TABLET PO SCH (22:06)
[2021-07-01] MEDS: Primidone 50 MG TABLET PO SCH (22:18)
[2021-07-01] MEDS: Mirtazapine 15 MG TABLET PO SCH (22:19)
[2021-07-02 01:36] LABS: Hematocrit 27.7 % (37.5-50.1); Hemoglobin 8.4 g/dL (12.9-16.9); Mean Corpuscular HGB Conc 30.3 g/dL (31.6-35.5); Mean Corpuscular Hemoglobin 28.6 pg (28.0-33.3); Mean Corpuscular Volume 94.2 fL (83.0-100.0); Mean Platelet Volume 10.8 fL (9.4-12.4); Platelet Count 227 K/mcL (140-400); Red Blood Count 2.94 M/mcL (4.19-5.50); Segmented Neutrophils % 74.2 %; White Blood Count 5.3 K/mcL (4.3-11.1)
[2021-07-02 01:37] LABS: Basophils % 0.4 %; Eosinophils % 0.2 %; Immature Granulocytes % 0.4 % (0-4); Lymphocytes # 0.8 K/mcL (0.6-4.6); Lymphocytes % 14.2 %; Monocytes # 0.6 K/mcL (0.0-1.3); Monocytes % 10.6 %; Neutrophils # 3.9 K/mcL (1.6-8.9)
[2021-07-02 02:04] LABS: Alanine Aminotransferase 10 Units/L (7-52); Albumin 2.2 g/dL (3.5-5.7); Alkaline Phosphatase 49 Units/L (34-104); Aspartate Amino Transferase 18 Units/L (13-39); BUN/Creatinine Ratio 20 (6-26); Bilirubin,Total 0.2 mg/dL (0.3-1.0); Blood Urea Nitrogen 16 mg/dL (8-23); Calcium 7.8 mg/dL (8.6-10.3); Carbon Dioxide 40 mEq/L (23-29); Chloride 98 mEq/L (98-107); Glucose 117 mg/dL (70-105); Osmolality,Calculated 290 (280-300); Potassium 3.9 mEq/L (3.5-5.1); Sodium 139 mEq/L (136-145); eGFR For African Americans > 60 (> 60); eGFR For Non-African Americans > 60 (> 60)
[2021-07-02 03:04] LABS: Albumin/Globulin Ratio 0.7 (1.1-2.2); Globulin 3.1 g/dL (2.4-3.5); Total Protein 5.3 g/dL (6.4-8.9)
[2021-07-02] MEDS: Levalbuterol Neb 1.25 MG/3 ML IH SCH ×3 (03:36→15:40)
[2021-07-02] MEDS: Sucralfate 1 GM TABLET PO SCH ×2 (05:32→15:16)
[2021-07-02] MEDS: Magic Mouthwash 10 ML UD Cup PO SCH ×2 (05:32→12:36)
[2021-07-02] MEDS: Tiotropium 10 INH DOSE IH SCH (07:32)
[2021-07-02] MEDS: Azithromycin 250 MG TABLET PO SCH (08:49)
[2021-07-02] MEDS: Cefdinir 300 MG CAPSULE PO SCH ×2 (08:49→09:10)
[2021-07-02] MEDS: Cholecalciferol (D-3) 1,000 UNIT (25MCG) TABLET PO SCH (08:51)
[2021-07-02] MEDS: Furosemide 20 MG TABLET PO SCH (08:52)
[2021-07-02] MEDS: predniSONE 20 MG TABLET PO SCH ×2 (08:53→09:10)
[2021-07-02] MEDS: Cyanocobalamin (B-12) 1,000 MCG TABLET PO SCH ×2 (08:53→09:10)
[2021-07-02] MEDS: polyethylene glycoL 3350 17 GM POWD.PACK PO SCH ×2 (08:54→11:45)
[2021-07-02] MEDS: Apixaban 5 MG TABLET PO SCH ×2 (08:54→09:09)
[2021-07-02] MEDS: Metoprolol XL (24 HR) Succ 25 MG TAB.ER.24H PO SCH ×2 (08:54→09:10)
[2021-07-02] MEDS: Ketoconazole 2% CRM 15 GM TUBE TP SCH ×2 (08:54→11:47)
[2021-07-02 15:30] VITALS: BP 116/75; PULSE 74; TEMP 98.2; O2SAT 93
[2021-07-02] MEDS ORDERED: Levalbuterol Neb 1.25 MG/3 ML IH PRN (17:00)
[2021-07-02 17:54] LABS: Adenovirus Not Detected (Not Detect); Bordetella Pertussis Not Detected (Not Detect); Chlamydophila pneumoniae Not Detected (Not Detect); Coronavirus 229E Not Detected (Not Detect); Coronavirus HKU1 Not Detected (Not Detect); Coronavirus NL63 Not Detected (Not Detect); Coronavirus OC43 Not Detected (Not Detect); Human Metapneumovirus Not Detected (Not Detect); Human Rhinovirus/Enterovirus Not Detected (Not Detect); Influenza A Subtype 2009 H1 Not Detected (Not Detect); Influenza B Not Detected (Not Detect); Mycoplasma pneumoniae Not Detected (Not Detect); Parainfluenza Virus 1 Not Detected (Not Detect); Parainfluenza Virus 2 Not Detected (Not Detect); Parainfluenza Virus 3 Not Detected (Not Detect); Parainfluenza Virus 4 Not Detected (Not Detect); Respiratory Syncytial Virus Not Detected (Not Detect); SARS-CoV-2 Not Detected (Not Detect)
== END 2021-07-02 18:44 | DRG 291 ==
LOC: EMEROOARM 17:33 → 3BNU 17:33 → SUATTDRO 06-29 14:48
PROVIDERS: ADMIT Nurse Practitioner; ATTEND Registered Nurse

== ENCOUNTER 2021-10-08 10:25 | Inpatient (IN) ==
[2021-10-08] MEDS ORDERED: Albuterol 2.5 MG/3 ML NEBULIZER IH ONE (10:46)
[2021-10-08] MEDS ORDERED: Ipratropium/Albuterol Neb 3 ML IH ONE (10:46)
[2021-10-08] MEDS ORDERED: methylPREDNISolone 125 MG/2 ML VIAL IVP ONE (10:46)
[2021-10-08] MEDS ORDERED: 0.9 % Sodium Chloride 1,000 ML IVC ONE (10:46)
[2021-10-08 11:42] LABS: Basophils # 0.1 K/mcL (0.0-0.2); Eosinophils # 0.1 K/mcL (0.0-0.6); Eosinophils % 1.2 %; Hematocrit 34.7 % (37.5-50.1); Hemoglobin 10.1 g/dL (12.9-16.9); Immature Granulocytes % 0.2 % (0-4); Lymphocytes # 0.6 K/mcL (0.6-4.6); Lymphocytes % 12.5 %; Mean Corpuscular HGB Conc 29.1 g/dL (31.6-35.5); Mean Corpuscular Hemoglobin 28.7 pg (28.0-33.3); Mean Corpuscular Volume 98.6 fL (83.0-100.0); Mean Platelet Volume 10.8 fL (9.4-12.4); Monocytes # 0.5 K/mcL (0.0-1.3); Monocytes % 9.6 %; Neutrophils # 3.8 K/mcL (1.6-8.9); Platelet Count 210 K/mcL (140-400); Red Blood Count 3.52 M/mcL (4.19-5.50); Red Cell Distribution Width 15.8 % (11.5-14.5); Segmented Neutrophils % 75.5 %
[2021-10-08 12:38] LABS: Bacteria,Urine Few per hpf (None-Few); Bilirubin,Urine Negative (Negative); Blood,Urine Negative (Negative); Clarity,Urine Clear (Clear); Color,Urine Yellow (Yellow); Glucose,Urine (UA) Normal (Normal); Hyaline Casts,Urine Few per lpf (None Seen); Ketones,Urine 10 mg/dL (Negative); Leukocyte Esterase,Urine Negative (Negative); Mucus,Urine Moderate per lpf (None-Few); Nitrite,Urine Negative (Negative); Protein,Urine 30 mg/dL (Neg-Trace); Specific Gravity,Urine 1.029 (1.010-1.025); Squamous Epithelial Cell,Urine Few per hpf (None-Few); Urobilinogen,Urine Normal (Normal)
[2021-10-08 12:55] LABS: Alanine Aminotransferase 14 Units/L (7-52); Albumin 2.8 g/dL (3.5-5.7); Albumin/Globulin Ratio 0.7 (1.1-2.2); Alkaline Phosphatase 61 Units/L (34-104); Aspartate Amino Transferase 20 Units/L (13-39); BUN/Creatinine Ratio 24 (6-26); Bilirubin,Direct 0.1 mg/dL (0.0-0.2); Bilirubin,Indirect 0.3 mg/dL (0.0-1.0); Bilirubin,Total 0.4 mg/dL (0.3-1.0); Blood Urea Nitrogen 16 mg/dL (8-23); Carbon Dioxide > 45 mEq/L (23-29); Chloride 91 mEq/L (98-107); Creatine Kinase 28 Units/L (30-223); Globulin 4.2 g/dL (2.4-3.5); Glucose 95 mg/dL (70-105); Osmolality,Calculated 295 (280-300); Potassium 4.5 mEq/L (3.5-5.1); Sodium 142 mEq/L (136-145); Troponin I < 0.03 ng/mL (< 0.04); eGFR For African Americans > 60 (> 60); eGFR For Non-African Americans > 60 (> 60)
[2021-10-08 13:09] LABS: Influenza A PCR Negative (Negative); Influenza B PCR Negative (Negative); Resp. Syncytial Virus PCR Negative (Negative)
[2021-10-08] MEDS ORDERED: Iopamidol - 370 500 ML MLS IVP ONE (13:41)
[2021-10-08] MEDS ORDERED: Ondansetron 4 MG/2 ML VIAL IVP PRN (13:42)
[2021-10-08 13:52] LABS: SARS-CoV-2 by PCR (In House) Negative (Negative)
[2021-10-08] MEDS ORDERED: Acetaminophen 325 MG TABLET PO PRN (21:31)
[2021-10-08] MEDS ORDERED: Morphine Sulfate 2 MG/ML SYRINGE IVP ONE (22:46)
[2021-10-09 02:01] LABS: Basophils % 0.2 %; Hematocrit 30.7 % (37.5-50.1); Hemoglobin 8.9 g/dL (12.9-16.9); Immature Granulocytes % 0.2 % (0-4); Lymphocytes # 0.4 K/mcL (0.6-4.6); Lymphocytes % 7.6 %; Mean Corpuscular Hemoglobin 28.3 pg (28.0-33.3); Mean Corpuscular Volume 97.5 fL (83.0-100.0); Mean Platelet Volume 10.8 fL (9.4-12.4); Monocytes # 0.4 K/mcL (0.0-1.3); Monocytes % 7.8 %; Platelet Count 190 K/mcL (140-400); Red Blood Count 3.15 M/mcL (4.19-5.50); Red Cell Distribution Width 15.9 % (11.5-14.5); Segmented Neutrophils % 84.2 %; White Blood Count 4.7 K/mcL (4.3-11.1)
[2021-10-09 02:17] LABS: INR 9.5; Prothrombin Time 103.7 Seconds (9.4-12.1)
[2021-10-09 02:26] LABS: BUN/Creatinine Ratio 26 (6-26); Blood Urea Nitrogen 18 mg/dL (8-23); Calcium 8.4 mg/dL (8.6-10.3); Chloride 93 mEq/L (98-107); Glucose 97 mg/dL (70-105); Lactate Dehydrogenase 119 Units/L (140-271); Osmolality,Calculated 290 (280-300); Potassium 4.5 mEq/L (3.5-5.1); Sodium 139 mEq/L (136-145); Total Protein 6.6 g/dL (6.4-8.9); eGFR For African Americans > 60 (> 60); eGFR For Non-African Americans > 60 (> 60)
[2021-10-09 04:41] LABS: Carbon Dioxide 40 mEq/L (23-29)
[2021-10-09] MEDS ORDERED: Albuterol 2.5 MG/3 ML NEBULIZER IH ONE (04:44)
[2021-10-09 05:06] LABS: Activated Partial Thrombo Time 31.7 Seconds (26.0-36.0)
[2021-10-09 05:28] LABS: INR 1.2; Prothrombin Time 13.5 Seconds (9.4-12.1)
[2021-10-09] MEDS: 0.9 % Sodium Chloride 1,000 ML IVC SCH ×2 (08:24→23:06)
[2021-10-09] MEDS ORDERED: Bisacodyl 10 MG RECTAL SUPPOSITORY RC PRN (08:31)
[2021-10-09] MEDS ORDERED: Apixaban 5 MG TABLET PO SCH (09:00)
[2021-10-09] MEDS ORDERED: Roflumilast [Daliresp] 500 MCG Tablet PO SCH (09:00)
[2021-10-09] MEDS ORDERED: Tiotropium Br/Olodaterol Hcl [Stiolto Respimat] IH SCH (10:00)
[2021-10-09] MEDS: Metoprolol XL (24 HR) Succ 50 MG TAB.ER.24H PO SCH (10:25)
[2021-10-09] MEDS ORDERED: *HR* Heparin 5,000 UNIT/ML VIAL IVP PRN ×2 (16:42)
[2021-10-09] MEDS ORDERED: *HR* Heparin 5,000 UNIT/ML VIAL IVP ONE (16:42)
[2021-10-09] MEDS ORDERED: Heparin 25,000UNIT/250ML 1/2NS 25,000 UNIT/250 ML IV.SOLN IVC SCH (16:45)
[2021-10-09] MEDS: Sucralfate 1 GM TABLET PO SCH (16:59)
[2021-10-09] MEDS: Heparin 25,000UNIT/250ML 1/2NS 25,000 UNIT/250 ML IV.SOLN IVC SCH (17:26)
[2021-10-09 18:24] LABS: Hematocrit 27.6 % (37.5-50.1); Hemoglobin 8.1 g/dL (12.9-16.9); Mean Corpuscular HGB Conc 29.3 g/dL (31.6-35.5); Mean Corpuscular Hemoglobin 28.5 pg (28.0-33.3); Mean Corpuscular Volume 97.2 fL (83.0-100.0); Mean Platelet Volume 10.7 fL (9.4-12.4); Platelet Count 183 K/mcL (140-400); Red Blood Count 2.84 M/mcL (4.19-5.50); Red Cell Distribution Width 16.1 % (11.5-14.5); White Blood Count 4.9 K/mcL (4.3-11.1)
[2021-10-09 18:34] LABS: INR 1.3; Prothrombin Time 14.5 Seconds (9.4-12.1)
[2021-10-09 18:41] LABS: Heparin anti-factor XA UFH 1.43 IU/mL (0.30-0.70)
[2021-10-09] MEDS: Mirtazapine 15 MG TABLET PO SCH (20:56)
[2021-10-09] MEDS: Primidone 50 MG TABLET PO SCH (20:57)
[2021-10-10 06:29] LABS: BUN/Creatinine Ratio 29 (6-26); Blood Urea Nitrogen 16 mg/dL (8-23); Calcium 8.1 mg/dL (8.6-10.3); Carbon Dioxide 42 mEq/L (23-29); Chloride 97 mEq/L (98-107); Glucose 87 mg/dL (70-105); Osmolality,Calculated 289 (280-300); Potassium 4.1 mEq/L (3.5-5.1); Sodium 139 mEq/L (136-145); eGFR For African Americans > 60 (> 60); eGFR For Non-African Americans > 60 (> 60)
[2021-10-10] MEDS: Ipratropium/Albuterol Neb 3 ML IH PRN (07:36)
[2021-10-10] MEDS: Sucralfate 1 GM TABLET PO SCH ×2 (08:25→16:26)
[2021-10-10] MEDS: Metoprolol XL (24 HR) Succ 50 MG TAB.ER.24H PO SCH (08:25)
[2021-10-10] MEDS: *HR* Metoprolol 5 MG/5 ML VIAL IVP SCH ×2 (09:29→13:13)
[2021-10-10] MEDS: Tiotropium 10 INH DOSE IH SCH (10:16)
[2021-10-10 12:04] LABS: Mean Corpuscular Hemoglobin 28.7 pg (28.0-33.3); Red Blood Count 2.44 M/mcL (4.19-5.50); Red Cell Distribution Width 15.9 % (11.5-14.5)
[2021-10-10 12:06] LABS: Hematocrit 24.6 % (37.5-50.1); Mean Corpuscular HGB Conc 28.5 g/dL (31.6-35.5); Mean Corpuscular Volume 100.8 fL (83.0-100.0); Mean Platelet Volume 10.7 fL (9.4-12.4); Platelet Count 156 K/mcL (140-400); White Blood Count 4.3 K/mcL (4.3-11.1)
[2021-10-10 12:17] LABS: Magnesium 1.6 mg/dL (1.6-2.6); Phosphorous 2.6 mg/dL (2.7-4.5)
[2021-10-10] MEDS ORDERED: D10% in Water 500 ML IVC PRN (12:32)
[2021-10-10] MEDS ORDERED: D5% in Water 1,000 ML IVC PRN (12:33)
[2021-10-10] MEDS ORDERED: Dextrose Gel 15 GM/37.5 ML TUBE PO PRN ×2 (12:33)
[2021-10-10] MEDS ORDERED: *HR* Dextrose 50 % in Water (Syg) 50 ML SYRINGE IVP PRN (12:33)
[2021-10-10] MEDS ORDERED: *HR* Dextrose 50 % in Water (Syg) 50 ML SYRINGE IVP ONE (12:39)
[2021-10-10] MEDS ORDERED: Norepinephrine 4 MG/254 ML in 0.9% Sodium Chloride IVC ONE (12:39)
[2021-10-10] MEDS: 0.9 % Sodium Chloride 1,000 ML IVC SCH (12:44)
[2021-10-10 15:11] LABS: Hematocrit 26.3 % (37.5-50.1); Hemoglobin 7.5 g/dL (12.9-16.9)
[2021-10-10] MEDS ORDERED: *HR* LORazepam Oral Conc 2 MG/ML SL PRN (15:21)
[2021-10-10] MEDS ORDERED: 0.9 % Sodium Chloride 1,000 ML IV ONE (15:56)
[2021-10-10] MEDS: Naloxone 0.4 MG/ML INJ IVP PRN ×2 (15:57→17:30)
[2021-10-10] MEDS ORDERED: *HR* Succinylcholine 200 MG/10 ML VIAL IVP ONE (16:09)
[2021-10-10] MEDS ORDERED: *HR* Midazolam HCl 2 MG/2 ML VIAL IVP ONE (16:09)
[2021-10-10 16:12] LABS: ABG Base Excess 6 mEq/L (-2 to 3); ABG HCO3 37 mEq/L (21-27); ABG Oxygen Saturation 91 % (95-98); ABG PCO2 105 mmHg (35-45); ABG PH 7.15 pH Units (7.32-7.45); ABG PO2 83 mmHg (85-104); ABG TCO2 40 mEq/L (20-26)
[2021-10-10] MEDS: Insulin LISPRO 300 UNITS/3 ML VIAL SUBQ SCH ×3 (16:26→23:18)
[2021-10-10] MEDS ORDERED: Clinimix E 5%-15% SOLUTION 2,000 ML with MVI, adult with vitamin K 10 ML IVC SCH (17:00)
[2021-10-10] MEDS ORDERED: Dexamethasone Sodium Phos/PF 10 MG/ML VIAL IVP STA (17:45)
[2021-10-10 17:53] LABS: BUN/Creatinine Ratio 25 (6-26); Blood Urea Nitrogen 15 mg/dL (8-23); Calcium 6.4 mg/dL (8.6-10.3); Carbon Dioxide 31 mEq/L (23-29); Chloride 108 mEq/L (98-107); Glucose 51 mg/dL (70-105); Osmolality,Calculated 296 (280-300); Potassium 3.9 mEq/L (3.5-5.1); Sodium 144 mEq/L (136-145); eGFR For African Americans > 60 (> 60); eGFR For Non-African Americans > 60 (> 60)
[2021-10-10] MEDS: Albumin 25% 25gram/100mL 25 GM/100 ML IV.SOLN IVC SCH ×2 (18:03→19:32)
[2021-10-10] MEDS: Norepinephrine 4 MG/254 ML IV.SOLN IVC SCH ×3 (18:07→22:22)
[2021-10-10] MEDS ORDERED: Artificial Tears SOLN 15 ML BOTTLE BOTH EYES PRN (18:40)
[2021-10-10] MEDS: FentaNYL (PF) 1,000 MCG/100 ML IV.SOLN IVC SCH (18:44)
[2021-10-10] MEDS ORDERED: D10% in Water 500 ML IVC SCH (18:45)
[2021-10-10] MEDS ORDERED: Vancomycin (wt based) 1,000 MG VIAL IVPB SCH (19:00)
[2021-10-10] MEDS: Heparin 25,000UNIT/250ML 1/2NS 25,000 UNIT/250 ML IV.SOLN IVC SCH (19:03)
[2021-10-10 19:28] LABS: Basophils % 0.3 %; Hematocrit 23.7 % (37.5-50.1); Hemoglobin 6.5 g/dL (12.9-16.9); Immature Granulocytes % 0.3 % (0-4); Lymphocytes # 0.3 K/mcL (0.6-4.6); Lymphocytes % 2.8 %; Mean Corpuscular HGB Conc 27.4 g/dL (31.6-35.5); Mean Corpuscular Hemoglobin 28.5 pg (28.0-33.3); Mean Corpuscular Volume 103.9 fL (83.0-100.0); Monocytes # 1.3 K/mcL (0.0-1.3); Monocytes % 10.9 %; Neutrophils # 10.3 K/mcL (1.6-8.9); Platelet Count 202 K/mcL (140-400); Red Blood Count 2.28 M/mcL (4.19-5.50); Red Cell Distribution Width 15.8 % (11.5-14.5); Segmented Neutrophils % 85.7 %
[2021-10-10] MEDS: Artificial Tears SOLN 15 ML BOTTLE BOTH EYES SCH ×2 (19:33→23:17)
[2021-10-10] MEDS: Pantoprazole 40 MG VIAL IVP SCH (19:35)
[2021-10-10 19:46] LABS: INR 1.4; Prothrombin Time 15.8 Seconds (9.4-12.1)
[2021-10-10] MEDS: Piperacillin/Tazobactam 3.375 GM in 0.9 % Sodium Chloride Mini Bag 100 ML IVPB SCH (19:48)
[2021-10-10 19:49] LABS: Activated Partial Thrombo Time 37.3 Seconds (26.0-36.0); Hypochromasia Present (Not Present)
[2021-10-10 19:50] LABS: Alanine Aminotransferase 162 Units/L (7-52); Albumin 2.6 g/dL (3.5-5.7); Alkaline Phosphatase 49 Units/L (34-104); Aspartate Amino Transferase 202 Units/L (13-39); BUN/Creatinine Ratio 23 (6-26); Bilirubin,Direct 0.2 mg/dL (0.0-0.2); Bilirubin,Indirect 0.3 mg/dL (0.0-1.0); Bilirubin,Total 0.5 mg/dL (0.3-1.0); Blood Urea Nitrogen 19 mg/dL (8-23); Calcium 7.7 mg/dL (8.6-10.3); Carbon Dioxide 34 mEq/L (23-29); Chloride 101 mEq/L (98-107); Globulin 2.6 g/dL (2.4-3.5); Glucose 138 mg/dL (70-105); Osmolality,Calculated 300 (280-300); Platelet Estimate Normal (Normal); Potassium 4.4 mEq/L (3.5-5.1); Sodium 143 mEq/L (136-145); Stomatocytes 1+ (Not Present); Total Protein 5.2 g/dL (6.4-8.9); eGFR For African Americans > 60 (> 60); eGFR For Non-African Americans > 60 (> 60)
[2021-10-10] MEDS: Primidone 50 MG TABLET PO SCH (19:53)
[2021-10-10] MEDS: Mirtazapine 15 MG TABLET PO SCH (19:53)
[2021-10-10 19:55] LABS: ABG Base Excess 5 mEq/L (-2 to 3); ABG HCO3 33 mEq/L (21-27); ABG Oxygen Saturation 88 % (95-98); ABG PCO2 81 mmHg (35-45); ABG PH 7.22 pH Units (7.32-7.45); ABG PO2 68 mmHg (85-104); ABG TCO2 36 mEq/L (20-26); Blood Gas VT 450 cc
[2021-10-10] MEDS: Chlorhexidine Rinse 15 ML MOUTHWASH MM SCH (20:13)
[2021-10-11] MEDS: FentaNYL (PF) 1,000 MCG/100 ML IV.SOLN IVC SCH ×4 (00:06→20:44)
[2021-10-11] MEDS: Norepinephrine 4 MG/254 ML IV.SOLN IVC SCH ×3 (02:54→11:43)
[2021-10-11] MEDS: Piperacillin/Tazobactam 3.375 GM in 0.9 % Sodium Chloride Mini Bag 100 ML IVPB SCH ×3 (03:04→18:40)
[2021-10-11] MEDS: Artificial Tears SOLN 15 ML BOTTLE BOTH EYES SCH ×6 (03:05→22:59)
[2021-10-11 03:08] LABS: VBG Ionized Calcium 0.97 mmol/L (1.15-1.35)
[2021-10-11 03:50] LABS: Hematocrit 23.5 % (37.5-50.1); Hemoglobin 7.1 g/dL (12.9-16.9); Mean Corpuscular HGB Conc 30.2 g/dL (31.6-35.5); Mean Corpuscular Volume 99.2 fL (83.0-100.0); Mean Platelet Volume 11.1 fL (9.4-12.4); Platelet Count 148 K/mcL (140-400); Red Blood Count 2.37 M/mcL (4.19-5.50); Red Cell Distribution Width 16.1 % (11.5-14.5)
[2021-10-11 03:57] LABS: Alanine Aminotransferase 153 Units/L (7-52); Albumin 2.8 g/dL (3.5-5.7); Albumin/Globulin Ratio 1.3 (1.1-2.2); Alkaline Phosphatase 47 Units/L (34-104); Aspartate Amino Transferase 179 Units/L (13-39); BUN/Creatinine Ratio 28 (6-26); Bilirubin,Direct 0.5 mg/dL (0.0-0.2); Bilirubin,Indirect 0.5 mg/dL (0.0-1.0); Blood Urea Nitrogen 23 mg/dL (8-23); Calcium 7.3 mg/dL (8.6-10.3); Carbon Dioxide 31 mEq/L (23-29); Chloride 102 mEq/L (98-107); Globulin 2.2 g/dL (2.4-3.5); Glucose 250 mg/dL (70-105); Magnesium 1.9 mg/dL (1.6-2.6); Osmolality,Calculated 304 (280-300); Phosphorous 2.8 mg/dL (2.7-4.5); Potassium 3.8 mEq/L (3.5-5.1); Sodium 141 mEq/L (136-145); eGFR For African Americans > 60 (> 60); eGFR For Non-African Americans > 60 (> 60)
[2021-10-11] MEDS: Insulin LISPRO 300 UNITS/3 ML VIAL SUBQ SCH ×6 (04:06→23:01)
[2021-10-11 04:15] LABS: Lymphocytes # 0.5 K/mcL (0.6-4.6); Monocytes # 0.3 K/mcL (0.0-1.3); Neutrophils # 12.2 K/mcL (1.6-8.9); Platelet Estimate Normal (Normal)
[2021-10-11 04:40] LABS: ABG Base Excess 5 mEq/L (-2 to 3); ABG HCO3 30 mEq/L (21-27); ABG Oxygen Saturation 92 % (95-98); ABG PCO2 49 mmHg (35-45); ABG PO2 65 mmHg (85-104); ABG TCO2 32 mEq/L (20-26); Blood Gas Modality ASSIST CONTROL; Blood Gas VT 450 cc
[2021-10-11] MEDS: Calcium Gluconate 1gm/50mL 1 GM/50 ML BAG IVPB SCH ×2 (06:14→06:46)
[2021-10-11] MEDS: Tiotropium 10 INH DOSE IH SCH (07:37)
[2021-10-11] MEDS: Sucralfate 1 GM TABLET PO SCH ×2 (07:38→13:48)
[2021-10-11] MEDS: Pantoprazole 40 MG VIAL IVP SCH ×2 (08:52→19:53)
[2021-10-11] MEDS: Chlorhexidine Rinse 15 ML MOUTHWASH MM SCH ×2 (08:54→19:53)
[2021-10-11] MEDS ORDERED: 0.9 % Sodium Chloride 1,000 ML IVC ONE (11:57)
[2021-10-11 12:56] LABS: Mean Platelet Volume 11.5 fL (9.4-12.4)
[2021-10-11 12:58] LABS: Hematocrit 18.8 % (37.5-50.1); Immature Platelets 6.7 % (1.1-6.1); Mean Corpuscular HGB Conc 31.9 g/dL (31.6-35.5); Mean Corpuscular Hemoglobin 30.5 pg (28.0-33.3); Mean Corpuscular Volume 95.4 fL (83.0-100.0); Red Blood Count 1.97 M/mcL (4.19-5.50); Red Cell Distribution Width 16.4 % (11.5-14.5); White Blood Count 7.6 K/mcL (4.3-11.1)
[2021-10-11 13:05] LABS: INR 1.8; Prothrombin Time 19.9 Seconds (9.4-12.1)
[2021-10-11 13:07] LABS: Activated Partial Thrombo Time 30.7 Seconds (26.0-36.0)
[2021-10-11] MEDS: Albumin Human 5% 12.5 GM/250 ML IV.SOLN IVC SCH ×2 (13:12→17:18)
[2021-10-11 13:15] LABS: BUN/Creatinine Ratio 30 (6-26); Blood Urea Nitrogen 23 mg/dL (8-23); Calcium 6.9 mg/dL (8.6-10.3); Carbon Dioxide 31 mEq/L (23-29); Chloride 107 mEq/L (98-107); Glucose 144 mg/dL (70-105); Osmolality,Calculated 298 (280-300); Potassium 3.2 mEq/L (3.5-5.1); Sodium 141 mEq/L (136-145); eGFR For African Americans > 60 (> 60); eGFR For Non-African Americans > 60 (> 60)
[2021-10-11] MEDS ORDERED: 0.9 % Sodium Chloride 250 ML ONE (13:36)
[2021-10-11 13:40] LABS: RBC,Pleural Fluid 56000 RBC/mcL
[2021-10-11 13:52] LABS: Total Protein,Pleural Fluid 3.2 g/dL
[2021-10-11 14:00] LABS: Appearance of Pleural Fl Cloudy (Clear)
[2021-10-11 16:15] LABS: VBG Ionized Calcium 1.04 mmol/L (1.15-1.35)
[2021-10-11] MEDS ORDERED: Potassium Phosphate 44 MEQ in 0.9 % Sodium Chloride 250 ML IVPB PRN (16:32)
[2021-10-11] MEDS ORDERED: Calcium Gluconate 1gm/50mL 1 GM/50 ML BAG IVPB PRN (16:32)
[2021-10-11] MEDS ORDERED: Clinimix E 5%-15% SOLUTION 2,000 ML with MVI, adult with vitamin K 10 ML IVC SCH (17:00)
[2021-10-11 20:36] LABS: Immature Granulocytes % 0.1 % (0-4); Lymphocytes # 0.4 K/mcL (0.6-4.6); Lymphocytes % 6.1 %; Mean Corpuscular Hemoglobin 28.8 pg (28.0-33.3); Mean Corpuscular Volume 89.9 fL (83.0-100.0); Monocytes # 0.5 K/mcL (0.0-1.3); Monocytes % 6.7 %; Platelet Count 111 K/mcL (140-400); Red Blood Count 2.78 M/mcL (4.19-5.50); Red Cell Distribution Width 17.3 % (11.5-14.5); Segmented Neutrophils % 87.1 %; White Blood Count 6.9 K/mcL (4.3-11.1)
[2021-10-12] MEDS: Norepinephrine 4 MG/254 ML IV.SOLN IVC SCH (02:14)
[2021-10-12] MEDS: Piperacillin/Tazobactam 3.375 GM in 0.9 % Sodium Chloride Mini Bag 100 ML IVPB SCH ×3 (03:12→18:50)
[2021-10-12] MEDS: Artificial Tears SOLN 15 ML BOTTLE BOTH EYES SCH ×6 (03:13→23:42)
[2021-10-12] MEDS: Insulin LISPRO 300 UNITS/3 ML VIAL SUBQ SCH ×6 (03:30→23:56)
[2021-10-12 04:03] LABS: Mean Corpuscular Volume 89.2 fL (83.0-100.0)
[2021-10-12 04:05] LABS: Basophils % 0.1 %; Eosinophils # 0.1 K/mcL (0.0-0.6); Hematocrit 24.7 % (37.5-50.1); Hemoglobin 8.1 g/dL (12.9-16.9); Immature Granulocytes % 0.1 % (0-4); Immature Platelets 8.2 % (1.1-6.1); Lymphocytes # 0.4 K/mcL (0.6-4.6); Lymphocytes % 6.6 %; Mean Corpuscular HGB Conc 32.8 g/dL (31.6-35.5); Mean Corpuscular Hemoglobin 29.2 pg (28.0-33.3); Mean Platelet Volume 11.6 fL (9.4-12.4); Monocytes # 0.4 K/mcL (0.0-1.3); Monocytes % 5.2 %; Neutrophils # 5.8 K/mcL (1.6-8.9); Platelet Count 117 K/mcL (140-400); Red Blood Count 2.77 M/mcL (4.19-5.50); Red Cell Distribution Width 17.8 % (11.5-14.5); White Blood Count 6.7 K/mcL (4.3-11.1)
[2021-10-12 04:15] LABS: Alanine Aminotransferase 78 Units/L (7-52); Albumin 2.8 g/dL (3.5-5.7); Albumin/Globulin Ratio 1.4 (1.1-2.2); Alkaline Phosphatase 38 Units/L (34-104); Aspartate Amino Transferase 65 Units/L (13-39); BUN/Creatinine Ratio 36 (6-26); Bilirubin,Total 0.6 mg/dL (0.3-1.0); Blood Urea Nitrogen 27 mg/dL (8-23); Calcium 7.6 mg/dL (8.6-10.3); Carbon Dioxide 32 mEq/L (23-29); Chloride 106 mEq/L (98-107); Glucose 124 mg/dL (70-105); Magnesium 2.1 mg/dL (1.6-2.6); Osmolality,Calculated 299 (280-300); Phosphorous 1.6 mg/dL (2.7-4.5); Potassium 3.5 mEq/L (3.5-5.1); Sodium 141 mEq/L (136-145); Total Protein 4.8 g/dL (6.4-8.9); eGFR For African Americans > 60 (> 60); eGFR For Non-African Americans > 60 (> 60)
[2021-10-12] MEDS: FentaNYL (PF) 1,000 MCG/100 ML IV.SOLN IVC SCH ×3 (05:04→19:47)
[2021-10-12 05:12] LABS: ABG Base Excess 4 mEq/L (-2 to 3); ABG HCO3 29 mEq/L (21-27); ABG Oxygen Saturation 90 % (95-98); ABG PCO2 45 mmHg (35-45); ABG PH 7.42 pH Units (7.32-7.45); ABG PO2 59 mmHg (85-104); ABG TCO2 31 mEq/L (20-26); Blood Gas Modality ASSIST CONTROL; Blood Gas VT 450 cc
[2021-10-12] MEDS: Pantoprazole 40 MG VIAL IVP SCH (06:06)
[2021-10-12 06:54] LABS: INR 1.5; Prothrombin Time 16.9 Seconds (9.4-12.1)
[2021-10-12 06:56] LABS: Activated Partial Thrombo Time 29.1 Seconds (26.0-36.0)
[2021-10-12] MEDS: Chlorhexidine Rinse 15 ML MOUTHWASH MM SCH ×2 (09:13→20:33)
[2021-10-12] MEDS ORDERED: 0.9 % Sodium Chloride 250 ML ONE ×2 (13:08→20:30)
[2021-10-12] MEDS ORDERED: Albumin Human 5% 12.5 GM/250 ML IV.SOLN IVPB ONE (14:52)
[2021-10-12 16:57] LABS: BUN/Creatinine Ratio 37 (6-26); Blood Urea Nitrogen 25 mg/dL (8-23); Calcium 7.3 mg/dL (8.6-10.3); Carbon Dioxide 32 mEq/L (23-29); Chloride 109 mEq/L (98-107); Glucose 119 mg/dL (70-105); Osmolality,Calculated 302 (280-300); Potassium 3.7 mEq/L (3.5-5.1); Sodium 143 mEq/L (136-145); eGFR For African Americans > 60 (> 60); eGFR For Non-African Americans > 60 (> 60)
[2021-10-12] MEDS ORDERED: Clinimix E 5%-20% SOLUTION 2,000 ML with MVI, adult with vitamin K 10 ML IVC SCH (17:00)
[2021-10-12 18:10] LABS: Phosphorous 3.3 mg/dL (2.7-4.5)
[2021-10-12 20:31] LABS: Basophils % 0.3 %; Eosinophils # 0.3 K/mcL (0.0-0.6); Eosinophils % 4.3 %; Hematocrit 26.8 % (37.5-50.1); Hemoglobin 8.6 g/dL (12.9-16.9); Immature Granulocytes % 0.3 % (0-4); Lymphocytes # 0.6 K/mcL (0.6-4.6); Lymphocytes % 7.4 %; Mean Corpuscular HGB Conc 32.1 g/dL (31.6-35.5); Mean Corpuscular Hemoglobin 29.5 pg (28.0-33.3); Mean Corpuscular Volume 91.8 fL (83.0-100.0); Mean Platelet Volume 11.4 fL (9.4-12.4); Monocytes # 0.5 K/mcL (0.0-1.3); Monocytes % 6.7 %; Platelet Count 103 K/mcL (140-400); Red Blood Count 2.92 M/mcL (4.19-5.50); Red Cell Distribution Width 18.1 % (11.5-14.5); White Blood Count 7.4 K/mcL (4.3-11.1)
[2021-10-13] MEDS: FentaNYL (PF) 1,000 MCG/100 ML IV.SOLN IVC SCH ×2 (03:35→21:52)
[2021-10-13] MEDS: Artificial Tears SOLN 15 ML BOTTLE BOTH EYES SCH ×5 (03:36→20:11)
[2021-10-13] MEDS: Piperacillin/Tazobactam 3.375 GM in 0.9 % Sodium Chloride Mini Bag 100 ML IVPB SCH ×3 (03:37→18:30)
[2021-10-13] MEDS: Insulin LISPRO 300 UNITS/3 ML VIAL SUBQ SCH ×5 (03:40→20:08)
[2021-10-13 03:56] LABS: Basophils % 0.3 %
[2021-10-13 03:58] LABS: Eosinophils # 0.3 K/mcL (0.0-0.6); Eosinophils % 4.7 %; Hematocrit 25.9 % (37.5-50.1); Hemoglobin 8.2 g/dL (12.9-16.9); Immature Granulocytes % 0.3 % (0-4); Immature Platelets 9.6 % (1.1-6.1); Lymphocytes # 0.4 K/mcL (0.6-4.6); Lymphocytes % 5.8 %; Mean Corpuscular HGB Conc 31.7 g/dL (31.6-35.5); Mean Corpuscular Hemoglobin 29.2 pg (28.0-33.3); Mean Corpuscular Volume 92.2 fL (83.0-100.0); Mean Platelet Volume 10.7 fL (9.4-12.4); Monocytes # 0.5 K/mcL (0.0-1.3); Monocytes % 6.5 %; Red Blood Count 2.81 M/mcL (4.19-5.50); Red Cell Distribution Width 17.8 % (11.5-14.5); Segmented Neutrophils % 82.4 %; White Blood Count 7.1 K/mcL (4.3-11.1)
[2021-10-13 04:01] LABS: Neutrophils # 5.9 K/mcL (1.6-8.9); Platelet Count 96 K/mcL (140-400)
[2021-10-13 04:17] LABS: ABG Base Excess 1 mEq/L (-2 to 3); ABG HCO3 28 mEq/L (21-27); ABG Oxygen Saturation 96 % (95-98); ABG PCO2 54 mmHg (35-45); ABG PH 7.32 pH Units (7.32-7.45); ABG PO2 94 mmHg (85-104); ABG TCO2 29 mEq/L (20-26); Blood Gas VT 450 cc
[2021-10-13 04:30] LABS: Alanine Aminotransferase 47 Units/L (7-52); Albumin 2.5 g/dL (3.5-5.7); Albumin/Globulin Ratio 1.2 (1.1-2.2); Alkaline Phosphatase 39 Units/L (34-104); Aspartate Amino Transferase 35 Units/L (13-39); BUN/Creatinine Ratio 38 (6-26); Bilirubin,Total 0.4 mg/dL (0.3-1.0); Blood Urea Nitrogen 26 mg/dL (8-23); Calcium 7.3 mg/dL (8.6-10.3); Carbon Dioxide 30 mEq/L (23-29); Chloride 109 mEq/L (98-107); Globulin 2.1 g/dL (2.4-3.5); Glucose 113 mg/dL (70-105); Magnesium 1.9 mg/dL (1.6-2.6); Osmolality,Calculated 296 (280-300); Phosphorous 3.3 mg/dL (2.7-4.5); Potassium 4.4 mEq/L (3.5-5.1); Sodium 140 mEq/L (136-145); Total Protein 4.6 g/dL (6.4-8.9); eGFR For African Americans > 60 (> 60); eGFR For Non-African Americans > 60 (> 60)
[2021-10-13] MEDS: Norepinephrine 4 MG/254 ML IV.SOLN IVC SCH (07:32)
[2021-10-13] MEDS ORDERED: Albumin 25% 25gram/100mL 25 GM/100 ML IV.SOLN IVPB ONE (08:05)
[2021-10-13] MEDS: Pantoprazole 40 MG VIAL IVP SCH (08:46)
[2021-10-13 08:51] LABS: VBG Ionized Calcium 1.23 mmol/L (1.15-1.35)
[2021-10-13] MEDS ORDERED: Ciprofloxacin/Dex *EAR* Susp 7.5 ML BOTTLE ONE (08:54)
[2021-10-13] MEDS ORDERED: Oxymetazoline Nasal SPRAY BOTTLE 15ML NS ONE (08:54)
[2021-10-13] MEDS ORDERED: Lidocaine/EPI 1:100k 1% 50 ML VIAL ONE (08:54)
[2021-10-13 08:59] LABS: INR 1.3; Prothrombin Time 14.4 Seconds (9.4-12.1)
[2021-10-13] MEDS: Chlorhexidine Rinse 15 ML MOUTHWASH MM SCH ×2 (08:59→20:20)
[2021-10-13 09:11] LABS: BUN/Creatinine Ratio 40 (6-26); Blood Urea Nitrogen 27 mg/dL (8-23); Calcium 7.4 mg/dL (8.6-10.3); Carbon Dioxide 31 mEq/L (23-29); Chloride 109 mEq/L (98-107); Glucose 129 mg/dL (70-105); Osmolality,Calculated 297 (280-300); Potassium 4.1 mEq/L (3.5-5.1); Sodium 140 mEq/L (136-145); eGFR For African Americans > 60 (> 60); eGFR For Non-African Americans > 60 (> 60)
[2021-10-13] MEDS ORDERED: Albumin Human 5% 25.0 GM/500 ML IV.SOLN ONE (09:45)
[2021-10-13] MEDS ORDERED: *HR* Rocuronium Bromide 50 MG/5 ML VIAL ONE ×3 (09:49→12:14)
[2021-10-13] MEDS ORDERED: *HR* Midazolam HCl 2 MG/2 ML VIAL ONE (09:50)
[2021-10-13] MEDS ORDERED: Ondansetron 4 MG/2 ML VIAL ONE (11:45)
[2021-10-13] MEDS ORDERED: *HR* FentaNYL (PF) 100 MCG/2 ML VIAL ONE (11:50)
[2021-10-13] MEDS ORDERED: Clinimix E 5%-20% SOLUTION 2,000 ML, Amino Acids 10% 200 ML with MVI, adult with vita... IVC SCH (17:00)
[2021-10-13 20:38] LABS: BUN/Creatinine Ratio 40 (6-26); Blood Urea Nitrogen 25 mg/dL (8-23); Calcium 8.2 mg/dL (8.6-10.3); Carbon Dioxide 28 mEq/L (23-29); Chloride 110 mEq/L (98-107); Glucose 279 mg/dL (70-105); Magnesium 2.1 mg/dL (1.6-2.6); Osmolality,Calculated 294 (280-300); Phosphorous 3.8 mg/dL (2.7-4.5); Potassium 4.8 mEq/L (3.5-5.1); Sodium 135 mEq/L (136-145); eGFR For African Americans > 60 (> 60); eGFR For Non-African Americans > 60 (> 60)
[2021-10-14] MEDS: Piperacillin/Tazobactam 3.375 GM in 0.9 % Sodium Chloride Mini Bag 100 ML IVPB SCH ×3 (03:06→17:59)
[2021-10-14] MEDS: Insulin LISPRO 300 UNITS/3 ML VIAL SUBQ SCH ×7 (04:12→23:49)
[2021-10-14] MEDS: Artificial Tears SOLN 15 ML BOTTLE BOTH EYES SCH ×7 (04:12→23:49)
[2021-10-14 04:31] LABS: Segmented Neutrophils % 92.1 %
[2021-10-14 04:33] LABS: Hematocrit 26.2 % (37.5-50.1); Hemoglobin 7.8 g/dL (12.9-16.9); Immature Granulocytes % 0.4 % (0-4); Lymphocytes # 0.2 K/mcL (0.6-4.6); Lymphocytes % 2.5 %; Mean Corpuscular HGB Conc 29.8 g/dL (31.6-35.5); Mean Corpuscular Hemoglobin 28.5 pg (28.0-33.3); Mean Corpuscular Volume 95.6 fL (83.0-100.0); Mean Platelet Volume 11.4 fL (9.4-12.4); Monocytes # 0.4 K/mcL (0.0-1.3); Neutrophils # 6.7 K/mcL (1.6-8.9); Red Blood Count 2.74 M/mcL (4.19-5.50); Red Cell Distribution Width 17.2 % (11.5-14.5); White Blood Count 7.3 K/mcL (4.3-11.1)
[2021-10-14 04:35] LABS: Platelet Count 91 K/mcL (140-400)
[2021-10-14 04:48] LABS: Alanine Aminotransferase 31 Units/L (7-52); Albumin 2.8 g/dL (3.5-5.7); Albumin/Globulin Ratio 1.5 (1.1-2.2); Alkaline Phosphatase 33 Units/L (34-104); Aspartate Amino Transferase 21 Units/L (13-39); BUN/Creatinine Ratio 49 (6-26); Bilirubin,Total 0.4 mg/dL (0.3-1.0); Blood Urea Nitrogen 28 mg/dL (8-23); Carbon Dioxide 31 mEq/L (23-29); Chloride 109 mEq/L (98-107); Globulin 1.9 g/dL (2.4-3.5); Glucose 125 mg/dL (70-105); Osmolality,Calculated 297 (280-300); Phosphorous 3.2 mg/dL (2.7-4.5); Potassium 4.9 mEq/L (3.5-5.1); Sodium 140 mEq/L (136-145); Total Protein 4.7 g/dL (6.4-8.9); eGFR For African Americans > 60 (> 60); eGFR For Non-African Americans > 60 (> 60)
[2021-10-14 05:08] LABS: ABG Base Excess 3 mEq/L (-2 to 3); ABG HCO3 30 mEq/L (21-27); ABG Oxygen Saturation 93 % (95-98); ABG PCO2 62 mmHg (35-45); ABG PH 7.29 pH Units (7.32-7.45); ABG PO2 76 mmHg (85-104); ABG TCO2 32 mEq/L (20-26); Blood Gas VT 450 cc
[2021-10-14] MEDS: Norepinephrine 4 MG/254 ML IV.SOLN IVC SCH (05:10)
[2021-10-14 05:14] LABS: Cholesterol,Body Fluid 36 mg/dL; Fluid Source for Cholesterol PLEURAL FLUID
[2021-10-14] MEDS: FentaNYL (PF) 1,000 MCG/100 ML IV.SOLN IVC SCH ×2 (05:32→18:20)
[2021-10-14] MEDS: Chlorhexidine Rinse 15 ML MOUTHWASH MM SCH ×2 (07:18→19:49)
[2021-10-14] MEDS: Pantoprazole 40 MG VIAL IVP SCH (07:19)
[2021-10-14 09:29] LABS: ABG Base Excess 3 mEq/L (-2 to 3); ABG HCO3 29 mEq/L (21-27); ABG Oxygen Saturation 99 % (95-98); ABG PCO2 55 mmHg (35-45); ABG PH 7.34 pH Units (7.32-7.45); ABG PO2 126 mmHg (85-104); ABG TCO2 31 mEq/L (20-26); Blood Gas Modality AF; Blood Gas VT 500 cc
[2021-10-14] MEDS ORDERED: Dexmedetomidine HCl 400 MCG/100 ML MLS IVC SCH (10:30)
[2021-10-14] MEDS: Ciprofloxacin/Dex *EAR* Susp 7.5 ML BOTTLE RIGHT EAR SCH ×2 (11:33→19:49)
[2021-10-14] MEDS ORDERED: D10% in Water 500 ML IVC PRN (13:27)
[2021-10-14] MEDS ORDERED: Clinimix E 5%-20% SOLUTION 2,000 ML with MVI, adult with vitamin K 10 ML IVC SCH (17:00)
[2021-10-15] MEDS: Norepinephrine 4 MG/254 ML IV.SOLN IVC SCH ×2 (00:01→18:23)
[2021-10-15] MEDS: FentaNYL (PF) 1,000 MCG/100 ML IV.SOLN IVC SCH ×3 (00:48→16:00)
[2021-10-15] MEDS: Piperacillin/Tazobactam 3.375 GM in 0.9 % Sodium Chloride Mini Bag 100 ML IVPB SCH ×3 (03:23→17:25)
[2021-10-15] MEDS: Artificial Tears SOLN 15 ML BOTTLE BOTH EYES SCH ×6 (03:24→23:50)
[2021-10-15 03:55] LABS: VBG Ionized Calcium 1.24 mmol/L (1.15-1.35)
[2021-10-15 03:56] LABS: Basophils % 0.3 %; Eosinophils # 0.4 K/mcL (0.0-0.6); Eosinophils % 5.5 %; Hematocrit 25.4 % (37.5-50.1); Hemoglobin 7.8 g/dL (12.9-16.9); Immature Granulocytes % 0.5 % (0-4); Immature Platelets 11.5 % (1.1-6.1); Lymphocytes # 0.6 K/mcL (0.6-4.6); Lymphocytes % 9.2 %; Mean Corpuscular HGB Conc 30.7 g/dL (31.6-35.5); Mean Corpuscular Hemoglobin 29.2 pg (28.0-33.3); Mean Corpuscular Volume 95.1 fL (83.0-100.0); Mean Platelet Volume 11.8 fL (9.4-12.4); Monocytes # 0.8 K/mcL (0.0-1.3); Monocytes % 12.3 %; Neutrophils # 4.6 K/mcL (1.6-8.9); Platelet Count 115 K/mcL (140-400); Red Blood Count 2.67 M/mcL (4.19-5.50); Red Cell Distribution Width 17.1 % (11.5-14.5); Segmented Neutrophils % 72.2 %; White Blood Count 6.4 K/mcL (4.3-11.1)
[2021-10-15 04:16] LABS: ABG Base Excess 2 mEq/L (-2 to 3); ABG HCO3 29 mEq/L (21-27); ABG Oxygen Saturation 93 % (95-98); ABG PCO2 56 mmHg (35-45); ABG PH 7.32 pH Units (7.32-7.45); ABG PO2 73 mmHg (85-104); ABG TCO2 31 mEq/L (20-26); Blood Gas VT 500 cc
[2021-10-15 04:18] LABS: Alanine Aminotransferase 34 Units/L (7-52); Albumin 2.7 g/dL (3.5-5.7); Albumin/Globulin Ratio 1.3 (1.1-2.2); Alkaline Phosphatase 33 Units/L (34-104); Aspartate Amino Transferase 32 Units/L (13-39); BUN/Creatinine Ratio 49 (6-26); Bilirubin,Total 0.6 mg/dL (0.3-1.0); Blood Urea Nitrogen 34 mg/dL (8-23); Calcium 8.2 mg/dL (8.6-10.3); Carbon Dioxide 27 mEq/L (23-29); Chloride 109 mEq/L (98-107); Globulin 2.1 g/dL (2.4-3.5); Glucose 89 mg/dL (70-105); Osmolality,Calculated 297 (280-300); Phosphorous 3.1 mg/dL (2.7-4.5); Potassium 4.8 mEq/L (3.5-5.1); Sodium 140 mEq/L (136-145); Total Protein 4.8 g/dL (6.4-8.9); Triglycerides 43 mg/dL (< 150); eGFR For African Americans > 60 (> 60); eGFR For Non-African Americans > 60 (> 60)
[2021-10-15] MEDS: Insulin LISPRO 300 UNITS/3 ML VIAL SUBQ SCH ×6 (04:39→23:58)
[2021-10-15] MEDS: Chlorhexidine Rinse 15 ML MOUTHWASH MM SCH ×2 (07:03→20:10)
[2021-10-15] MEDS: Ciprofloxacin/Dex *EAR* Susp 7.5 ML BOTTLE RIGHT EAR SCH ×2 (07:03→20:09)
[2021-10-15] MEDS: Pantoprazole 40 MG VIAL IVP SCH (07:03)
[2021-10-15] MEDS ORDERED: Lidocaine -MPF 2% 2 ML VIAL IH ONE (11:07)
[2021-10-15] MEDS: Docusate Oral Soln 100 MG/10 ML UDC GTUBE SCH ×2 (12:42→20:10)
[2021-10-16] MEDS: Piperacillin/Tazobactam 3.375 GM in 0.9 % Sodium Chloride Mini Bag 100 ML IVPB SCH ×2 (02:14→17:21)
[2021-10-16 03:03] LABS: Basophils % 0.3 %; Eosinophils # 0.4 K/mcL (0.0-0.6); Eosinophils % 5.8 %; Hematocrit 26.8 % (37.5-50.1); Hemoglobin 8.1 g/dL (12.9-16.9); Immature Granulocytes % 0.3 % (0-4); Immature Platelets 11.6 % (1.1-6.1); Lymphocytes # 0.6 K/mcL (0.6-4.6); Lymphocytes % 9.1 %; Mean Corpuscular HGB Conc 30.2 g/dL (31.6-35.5); Mean Corpuscular Hemoglobin 29.5 pg (28.0-33.3); Mean Corpuscular Volume 97.5 fL (83.0-100.0); Monocytes # 1.1 K/mcL (0.0-1.3); Monocytes % 16.2 %; Neutrophils # 4.7 K/mcL (1.6-8.9); Nucleated Red Blood Cells 0.3 /100 WBC (0); Platelet Count 137 K/mcL (140-400); Red Blood Count 2.75 M/mcL (4.19-5.50); Red Cell Distribution Width 17.1 % (11.5-14.5); Segmented Neutrophils % 68.3 %; White Blood Count 6.9 K/mcL (4.3-11.1)
[2021-10-16 03:13] LABS: Alanine Aminotransferase 40 Units/L (7-52); Albumin 2.7 g/dL (3.5-5.7); Albumin/Globulin Ratio 1.2 (1.1-2.2); Alkaline Phosphatase 37 Units/L (34-104); Aspartate Amino Transferase 37 Units/L (13-39); BUN/Creatinine Ratio 50 (6-26); Bilirubin,Total 0.5 mg/dL (0.3-1.0); Blood Urea Nitrogen 32 mg/dL (8-23); Calcium 8.1 mg/dL (8.6-10.3); Carbon Dioxide 31 mEq/L (23-29); Chloride 108 mEq/L (98-107); Globulin 2.3 g/dL (2.4-3.5); Glucose 114 mg/dL (70-105); Magnesium 1.8 mg/dL (1.6-2.6); Osmolality,Calculated 298 (280-300); Phosphorous 3.5 mg/dL (2.7-4.5); Potassium 4.8 mEq/L (3.5-5.1); Sodium 140 mEq/L (136-145); eGFR For African Americans > 60 (> 60); eGFR For Non-African Americans > 60 (> 60)
[2021-10-16] MEDS: Insulin LISPRO 300 UNITS/3 ML VIAL SUBQ SCH ×5 (03:46→20:48)
[2021-10-16 04:19] LABS: ABG Base Excess 3 mEq/L (-2 to 3); ABG HCO3 30 mEq/L (21-27); ABG Oxygen Saturation 92 % (95-98); ABG PCO2 54 mmHg (35-45); ABG PH 7.35 pH Units (7.32-7.45); ABG PO2 67 mmHg (85-104); ABG TCO2 31 mEq/L (20-26); Blood Gas Modality ASSIST CONTROL; Blood Gas VT 500 cc
[2021-10-16] MEDS: Artificial Tears SOLN 15 ML BOTTLE BOTH EYES SCH ×6 (04:30→23:51)
[2021-10-16] MEDS: Pantoprazole 40 MG VIAL IVP SCH (07:12)
[2021-10-16] MEDS: Chlorhexidine Rinse 15 ML MOUTHWASH MM SCH ×2 (07:12→20:46)
[2021-10-16] MEDS: Docusate Oral Soln 100 MG/10 ML UDC GTUBE SCH ×2 (07:12→20:46)
[2021-10-16] MEDS: Ciprofloxacin/Dex *EAR* Susp 7.5 ML BOTTLE RIGHT EAR SCH ×2 (07:13→20:47)
[2021-10-16] MEDS: FentaNYL (PF) 1,000 MCG/100 ML IV.SOLN IVC SCH ×2 (10:42→17:22)
[2021-10-16] MEDS ORDERED: Piperacillin/Tazobactam 3.375 GM in 0.9 % Sodium Chloride Mini Bag 100 ML IVPB SCH (12:00)
[2021-10-16] MEDS: Norepinephrine 4 MG/254 ML IV.SOLN IVC SCH (23:48)
[2021-10-17] MEDS: Insulin LISPRO 300 UNITS/3 ML VIAL SUBQ SCH ×7 (00:04→23:30)
[2021-10-17] MEDS: FentaNYL (PF) 1,000 MCG/100 ML IV.SOLN IVC SCH ×2 (00:41→09:40)
[2021-10-17 03:44] LABS: ABG Base Excess 4 mEq/L (-2 to 3); ABG HCO3 30 mEq/L (21-27); ABG Oxygen Saturation 99 % (95-98); ABG PCO2 57 mmHg (35-45); ABG PH 7.33 pH Units (7.32-7.45); ABG PO2 145 mmHg (85-104); ABG TCO2 32 mEq/L (20-26); Blood Gas VT 500 cc
[2021-10-17] MEDS: Artificial Tears SOLN 15 ML BOTTLE BOTH EYES SCH ×6 (03:47→23:28)
[2021-10-17 05:56] LABS: Basophils % 0.3 %
[2021-10-17 05:58] LABS: Eosinophils # 0.3 K/mcL (0.0-0.6); Eosinophils % 5.8 %; Hematocrit 24.2 % (37.5-50.1); Hemoglobin 7.4 g/dL (12.9-16.9); Immature Granulocytes % 0.2 % (0-4); Immature Platelets 9.9 % (1.1-6.1); Lymphocytes # 0.4 K/mcL (0.6-4.6); Lymphocytes % 6.8 %; Mean Corpuscular HGB Conc 30.6 g/dL (31.6-35.5); Mean Corpuscular Hemoglobin 28.9 pg (28.0-33.3); Mean Corpuscular Volume 94.5 fL (83.0-100.0); Monocytes # 0.9 K/mcL (0.0-1.3); Monocytes % 15.6 %; Platelet Count 144 K/mcL (140-400); Red Blood Count 2.56 M/mcL (4.19-5.50); Red Cell Distribution Width 16.9 % (11.5-14.5); Segmented Neutrophils % 71.3 %; White Blood Count 5.8 K/mcL (4.3-11.1)
[2021-10-17 06:12] LABS: Neutrophils # 4.1 K/mcL (1.6-8.9)
[2021-10-17 06:14] LABS: Blood Urea Nitrogen 27 mg/dL (8-23); Carbon Dioxide 32 mEq/L (23-29); Chloride 106 mEq/L (98-107); Potassium 4.7 mEq/L (3.5-5.1); Sodium 138 mEq/L (136-145)
[2021-10-17 06:15] LABS: BUN/Creatinine Ratio 43 (6-26); Calcium 7.9 mg/dL (8.6-10.3); Glucose 139 mg/dL (70-105); Osmolality,Calculated 293 (280-300); eGFR For African Americans > 60 (> 60); eGFR For Non-African Americans > 60 (> 60)
[2021-10-17] MEDS: Docusate Oral Soln 100 MG/10 ML UDC GTUBE SCH ×2 (07:28→21:14)
[2021-10-17] MEDS: Pantoprazole 40 MG VIAL IVP SCH (07:29)
[2021-10-17] MEDS: Chlorhexidine Rinse 15 ML MOUTHWASH MM SCH ×2 (07:29→21:14)
[2021-10-17] MEDS: Ciprofloxacin/Dex *EAR* Susp 7.5 ML BOTTLE RIGHT EAR SCH ×2 (07:30→21:14)
[2021-10-17] MEDS: Dexmedetomidine HCl 400 MCG/100 ML MLS IVC SCH (10:47)
[2021-10-17 13:19] LABS: ABG Base Excess 3 mEq/L (-2 to 3); ABG HCO3 31 mEq/L (21-27); ABG Oxygen Saturation 95 % (95-98); ABG PCO2 65 mmHg (35-45); ABG PH 7.28 pH Units (7.32-7.45); ABG PO2 89 mmHg (85-104); ABG TCO2 33 mEq/L (20-26)
[2021-10-17] MEDS ORDERED: *HR* Rocuronium Bromide 50 MG/5 ML VIAL IVP ONE (13:38)
[2021-10-17] MEDS ORDERED: *HR* Etomidate 40 MG/20 ML VIAL IVP ONE (13:38)
[2021-10-17] MEDS ORDERED: Albumin 25% 25gram/100mL 25 GM/100 ML IV.SOLN IVPB ONE (14:36)
[2021-10-17 15:50] LABS: Adenovirus Not Detected (Not Detect); Bordetella Pertussis Not Detected (Not Detect); Chlamydophila pneumoniae Not Detected (Not Detect); Coronavirus 229E Not Detected (Not Detect); Coronavirus HKU1 Not Detected (Not Detect); Coronavirus NL63 Not Detected (Not Detect); Coronavirus OC43 Not Detected (Not Detect); Human Metapneumovirus Not Detected (Not Detect); Human Rhinovirus/Enterovirus Not Detected (Not Detect); Influenza A Subtype 2009 H1 Not Detected (Not Detect); Influenza B Not Detected (Not Detect); Mycoplasma pneumoniae Not Detected (Not Detect); Parainfluenza Virus 1 Not Detected (Not Detect); Parainfluenza Virus 2 Not Detected (Not Detect); Parainfluenza Virus 3 Not Detected (Not Detect); Parainfluenza Virus 4 Not Detected (Not Detect); Respiratory Syncytial Virus Not Detected (Not Detect); SARS-CoV-2 Not Detected (Not Detect)
[2021-10-17] MEDS: Furosemide 40 MG/4 ML VIAL IVP SCH (16:41)
[2021-10-17 18:55] LABS: Basophils % 0.3 %; Eosinophils % 0.3 %; Hematocrit 24.6 % (37.5-50.1); Hemoglobin 7.5 g/dL (12.9-16.9); Immature Granulocytes % 0.5 % (0-4); Lymphocytes # 0.3 K/mcL (0.6-4.6); Lymphocytes % 4.7 %; Mean Corpuscular HGB Conc 30.5 g/dL (31.6-35.5); Mean Platelet Volume 11.9 fL (9.4-12.4); Monocytes # 0.9 K/mcL (0.0-1.3); Monocytes % 13.8 %; Neutrophils # 5.3 K/mcL (1.6-8.9); Platelet Count 153 K/mcL (140-400); Red Blood Count 2.59 M/mcL (4.19-5.50); Red Cell Distribution Width 16.8 % (11.5-14.5); Segmented Neutrophils % 80.4 %; White Blood Count 6.6 K/mcL (4.3-11.1)
[2021-10-17 19:08] LABS: INR 1.3; Prothrombin Time 14.9 Seconds (9.4-12.1)
[2021-10-17 19:57] LABS: ABG Base Excess 6 mEq/L (-2 to 3); ABG HCO3 32 mEq/L (21-27); ABG Oxygen Saturation 96 % (95-98); ABG PCO2 54 mmHg (35-45); ABG PH 7.38 pH Units (7.32-7.45); ABG PO2 84 mmHg (85-104); ABG TCO2 34 mEq/L (20-26); Blood Gas Modality AF; Blood Gas VT 500 cc
[2021-10-17] MEDS: Norepinephrine 4 MG/254 ML IV.SOLN IVC SCH (21:16)
[2021-10-18] MEDS: FentaNYL (PF) 1,000 MCG/100 ML IV.SOLN IVC SCH ×3 (02:05→18:45)
[2021-10-18] MEDS: Artificial Tears SOLN 15 ML BOTTLE BOTH EYES SCH ×6 (03:48→23:59)
[2021-10-18] MEDS: Insulin LISPRO 300 UNITS/3 ML VIAL SUBQ SCH ×6 (03:50→23:59)
[2021-10-18 04:50] LABS: ABG Base Excess 7 mEq/L (-2 to 3); ABG HCO3 32 mEq/L (21-27); ABG Oxygen Saturation 97 % (95-98); ABG PCO2 51 mmHg (35-45); ABG PH 7.41 pH Units (7.32-7.45); ABG PO2 87 mmHg (85-104); ABG TCO2 34 mEq/L (20-26); Blood Gas Modality AF; Blood Gas VT 500 cc
[2021-10-18 05:14] LABS: Hematocrit 21.6 % (37.5-50.1); Hemoglobin 6.7 g/dL (12.9-16.9); Mean Corpuscular Hemoglobin 29.4 pg (28.0-33.3); Mean Corpuscular Volume 94.7 fL (83.0-100.0); Mean Platelet Volume 11.7 fL (9.4-12.4); Platelet Count 143 K/mcL (140-400); Red Blood Count 2.28 M/mcL (4.19-5.50); White Blood Count 5.1 K/mcL (4.3-11.1)
[2021-10-18 05:20] LABS: INR 1.4; Prothrombin Time 15.6 Seconds (9.4-12.1)
[2021-10-18 05:30] LABS: BUN/Creatinine Ratio 41 (6-26); Blood Urea Nitrogen 28 mg/dL (8-23); Calcium 7.8 mg/dL (8.6-10.3); Carbon Dioxide 35 mEq/L (23-29); Chloride 103 mEq/L (98-107); Glucose 126 mg/dL (70-105); Osmolality,Calculated 293 (280-300); Potassium 4.6 mEq/L (3.5-5.1); Sodium 138 mEq/L (136-145); eGFR For African Americans > 60 (> 60); eGFR For Non-African Americans > 60 (> 60)
[2021-10-18] MEDS: Chlorhexidine Rinse 15 ML MOUTHWASH MM SCH ×2 (07:27→20:08)
[2021-10-18] MEDS: Ciprofloxacin/Dex *EAR* Susp 7.5 ML BOTTLE RIGHT EAR SCH ×2 (07:27→20:09)
[2021-10-18] MEDS: Furosemide 40 MG/4 ML VIAL IVP SCH (07:27)
[2021-10-18] MEDS: Pantoprazole 40 MG VIAL IVP SCH (07:27)
[2021-10-18] MEDS: Docusate Oral Soln 100 MG/10 ML UDC GTUBE SCH ×2 (07:27→20:08)
[2021-10-18 08:06] LABS: Troponin I 0.03 ng/mL (< 0.04)
[2021-10-18] MEDS: Ipratropium/Albuterol Neb 3 ML IH PRN (08:32)
[2021-10-18] MEDS: Acetylcysteine 10% 2 ML INHSOL IH SCH ×3 (08:32→19:58)
[2021-10-18] MEDS ORDERED: Iopamidol - 370 500 ML MLS IVP ONE (09:17)
[2021-10-18] MEDS ORDERED: 0.9 % Sodium Chloride 250 ML ONE (09:51)
[2021-10-18 10:06] LABS: Albumin 2.5 g/dL (3.5-5.7); Albumin/Globulin Ratio 1.1 (1.1-2.2); Bilirubin,Direct 0.1 mg/dL (0.0-0.2); Bilirubin,Indirect 0.4 mg/dL (0.0-1.0); Bilirubin,Total 0.5 mg/dL (0.3-1.0); Globulin 2.2 g/dL (2.4-3.5); Total Protein 4.7 g/dL (6.4-8.9)
[2021-10-18] MEDS: Ipratropium/Albuterol Neb 3 ML IH SCH ×4 (11:06→23:59)
[2021-10-18] MEDS: Dexmedetomidine HCl 400 MCG/100 ML MLS IVC SCH (11:30)
[2021-10-18] MEDS ORDERED: levETIRAcetam 1,000 MG in 0.9 % Sodium Chloride 100 ML IVPB ONE (11:32)
[2021-10-18] MEDS ORDERED: *HR* LORazepam 2 MG/ML VIAL IVP PRN (11:33)
[2021-10-18 14:56] LABS: Procalcitonin 0.5 ng/mL (0.00-0.15)
[2021-10-18 15:31] LABS: Segmented Neutrophils % 76.1 %
[2021-10-18 15:33] LABS: Basophils % 0.2 %; Eosinophils # 0.1 K/mcL (0.0-0.6); Eosinophils % 1.6 %; Hemoglobin 7.8 g/dL (12.9-16.9); Immature Granulocytes % 0.4 % (0-4); Lymphocytes # 0.4 K/mcL (0.6-4.6); Lymphocytes % 7.2 %; Mean Corpuscular HGB Conc 32.5 g/dL (31.6-35.5); Mean Corpuscular Hemoglobin 30.2 pg (28.0-33.3); Mean Platelet Volume 11.1 fL (9.4-12.4); Monocytes # 0.8 K/mcL (0.0-1.3); Monocytes % 14.5 %; Platelet Count 145 K/mcL (140-400); Red Blood Count 2.58 M/mcL (4.19-5.50); Red Cell Distribution Width 16.8 % (11.5-14.5); White Blood Count 5.2 K/mcL (4.3-11.1)
[2021-10-19] MEDS: Ipratropium/Albuterol Neb 3 ML IH SCH ×6 (03:30→23:40)
[2021-10-19] MEDS: Insulin LISPRO 300 UNITS/3 ML VIAL SUBQ SCH ×4 (03:49→17:57)
[2021-10-19] MEDS: Artificial Tears SOLN 15 ML BOTTLE BOTH EYES SCH ×5 (03:49→21:08)
[2021-10-19 04:05] LABS: Hematocrit 26.8 % (37.5-50.1); Hemoglobin 8.1 g/dL (12.9-16.9); Mean Corpuscular HGB Conc 30.2 g/dL (31.6-35.5); Mean Corpuscular Hemoglobin 27.9 pg (28.0-33.3); Mean Corpuscular Volume 92.4 fL (83.0-100.0); Mean Platelet Volume 11.7 fL (9.4-12.4); Platelet Count 164 K/mcL (140-400); Red Cell Distribution Width 17.2 % (11.5-14.5); White Blood Count 5.8 K/mcL (4.3-11.1)
[2021-10-19 04:07] LABS: VBG Ionized Calcium 1.11 mmol/L (1.15-1.35)
[2021-10-19 04:13] LABS: INR 1.3; Prothrombin Time 14.5 Seconds (9.4-12.1)
[2021-10-19 04:18] LABS: ABG Base Excess 8 mEq/L (-2 to 3); ABG HCO3 34 mEq/L (21-27); ABG Oxygen Saturation 95 % (95-98); ABG PCO2 60 mmHg (35-45); ABG PH 7.37 pH Units (7.32-7.45); ABG PO2 81 mmHg (85-104); ABG TCO2 36 mEq/L (20-26); Blood Gas VT 500 cc
[2021-10-19] MEDS: FentaNYL (PF) 1,000 MCG/100 ML IV.SOLN IVC SCH ×3 (04:52→21:22)
[2021-10-19 05:23] LABS: BUN/Creatinine Ratio 42 (6-26); Blood Urea Nitrogen 25 mg/dL (8-23); Calcium 7.9 mg/dL (8.6-10.3); Carbon Dioxide 35 mEq/L (23-29); Chloride 102 mEq/L (98-107); Glucose 115 mg/dL (70-105); Osmolality,Calculated 295 (280-300); Phosphorous 3.6 mg/dL (2.7-4.5); Potassium 4.6 mEq/L (3.5-5.1); Sodium 140 mEq/L (136-145); eGFR For African Americans > 60 (> 60); eGFR For Non-African Americans > 60 (> 60)
[2021-10-19] MEDS: Norepinephrine 4 MG/254 ML IV.SOLN IVC SCH ×2 (06:18→21:07)
[2021-10-19] MEDS: Acetylcysteine 10% 2 ML INHSOL IH SCH ×2 (07:24→19:23)
[2021-10-19] MEDS: Docusate Oral Soln 100 MG/10 ML UDC GTUBE SCH ×2 (07:29→21:08)
[2021-10-19] MEDS: Pantoprazole 40 MG VIAL IVP SCH (07:29)
[2021-10-19] MEDS: Chlorhexidine Rinse 15 ML MOUTHWASH MM SCH ×2 (07:29→21:08)
[2021-10-19] MEDS: Furosemide 40 MG/4 ML VIAL IVP SCH (07:30)
[2021-10-19] MEDS: Ciprofloxacin/Dex *EAR* Susp 7.5 ML BOTTLE RIGHT EAR SCH (07:31)
[2021-10-19] MEDS: Dexmedetomidine HCl 400 MCG/100 ML MLS IVC SCH (09:48)
[2021-10-19] MEDS ORDERED: Bisacodyl 10 MG RECTAL SUPPOSITORY RC ONE (10:44)
[2021-10-20] MEDS: Artificial Tears SOLN 15 ML BOTTLE BOTH EYES SCH ×7 (01:11→23:52)
[2021-10-20] MEDS: Insulin LISPRO 300 UNITS/3 ML VIAL SUBQ SCH ×5 (01:12→23:52)
[2021-10-20] MEDS: Ipratropium/Albuterol Neb 3 ML IH SCH ×6 (03:46→23:59)
[2021-10-20] MEDS: FentaNYL (PF) 1,000 MCG/100 ML IV.SOLN IVC SCH ×4 (04:03→22:33)
[2021-10-20 04:30] LABS: VBG Ionized Calcium 1.12 mmol/L (1.15-1.35)
[2021-10-20 04:42] LABS: ABG Base Excess 11 mEq/L (-2 to 3); ABG HCO3 38 mEq/L (21-27); ABG Oxygen Saturation 94 % (95-98); ABG PCO2 64 mmHg (35-45); ABG PH 7.39 pH Units (7.32-7.45); ABG PO2 73 mmHg (85-104); ABG TCO2 40 mEq/L (20-26); Blood Gas Modality AF; Blood Gas VT 500 cc
[2021-10-20 04:58] LABS: Phosphorous 3.8 mg/dL (2.7-4.5)
[2021-10-20 05:40] LABS: Hematocrit 25.5 % (37.5-50.1); Mean Corpuscular HGB Conc 31.4 g/dL (31.6-35.5); Mean Corpuscular Hemoglobin 29.3 pg (28.0-33.3); Mean Corpuscular Volume 93.4 fL (83.0-100.0); Mean Platelet Volume 11.6 fL (9.4-12.4); Platelet Count 180 K/mcL (140-400); Red Blood Count 2.73 M/mcL (4.19-5.50); Red Cell Distribution Width 17.3 % (11.5-14.5); White Blood Count 7.2 K/mcL (4.3-11.1)
[2021-10-20 05:51] LABS: BUN/Creatinine Ratio 36 (6-26); Blood Urea Nitrogen 24 mg/dL (8-23); Calcium 7.9 mg/dL (8.6-10.3); Carbon Dioxide 37 mEq/L (23-29); Chloride 100 mEq/L (98-107); Glucose 132 mg/dL (70-105); Magnesium 2.1 mg/dL (1.6-2.6); Osmolality,Calculated 294 (280-300); Potassium 4.5 mEq/L (3.5-5.1); Sodium 139 mEq/L (136-145); eGFR For African Americans > 60 (> 60); eGFR For Non-African Americans > 60 (> 60)
[2021-10-20] MEDS: Acetylcysteine 10% 2 ML INHSOL IH SCH ×2 (06:58→19:45)
[2021-10-20] MEDS: Chlorhexidine Rinse 15 ML MOUTHWASH MM SCH ×2 (08:51→20:44)
[2021-10-20] MEDS: Furosemide 40 MG/4 ML VIAL IVP SCH (08:51)
[2021-10-20] MEDS: Pantoprazole 40 MG VIAL IVP SCH (08:51)
[2021-10-20] MEDS: Docusate Oral Soln 100 MG/10 ML UDC GTUBE SCH ×2 (08:51→20:44)
[2021-10-20] MEDS ORDERED: *HR* Rocuronium Bromide 50 MG/5 ML VIAL IVP ONE (11:20)
[2021-10-20] MEDS: Dexmedetomidine HCl 400 MCG/100 ML MLS IVC SCH (11:23)
[2021-10-20] MEDS ORDERED: Lidocaine/EPI 1:100k 1% 20 ML VIAL INFILT ONE (11:30)
[2021-10-20] MEDS ORDERED: Lidocaine/EPI 1:200k 1% PF 10 ML VIAL INFILT ONE (12:41)
[2021-10-20] MEDS: *HR* Heparin 5,000 UNIT/ML VIAL SQ SCH (17:05)
[2021-10-20] MEDS: Norepinephrine 4 MG/254 ML IV.SOLN IVC SCH (20:45)
[2021-10-21] MEDS ORDERED: *HR* Metoprolol 5 MG/5 ML VIAL IVP ONE (01:20)
[2021-10-21] MEDS: Ipratropium/Albuterol Neb 3 ML IH SCH ×6 (03:26→23:23)
[2021-10-21] MEDS: Artificial Tears SOLN 15 ML BOTTLE BOTH EYES SCH ×6 (03:32→23:14)
[2021-10-21 03:59] LABS: Hematocrit 25.5 % (37.5-50.1); Hemoglobin 7.8 g/dL (12.9-16.9); Mean Corpuscular HGB Conc 30.6 g/dL (31.6-35.5); Mean Corpuscular Hemoglobin 28.3 pg (28.0-33.3); Mean Corpuscular Volume 92.4 fL (83.0-100.0); Mean Platelet Volume 11.8 fL (9.4-12.4); Platelet Count 191 K/mcL (140-400); Red Blood Count 2.76 M/mcL (4.19-5.50); Red Cell Distribution Width 16.8 % (11.5-14.5); White Blood Count 8.7 K/mcL (4.3-11.1)
[2021-10-21 04:15] LABS: BUN/Creatinine Ratio 32 (6-26); Blood Urea Nitrogen 24 mg/dL (8-23); Calcium 7.7 mg/dL (8.6-10.3); Carbon Dioxide 39 mEq/L (23-29); Chloride 101 mEq/L (98-107); Glucose 132 mg/dL (70-105); Magnesium 2.1 mg/dL (1.6-2.6); Osmolality,Calculated 296 (280-300); Phosphorous 3.4 mg/dL (2.7-4.5); Potassium 4.1 mEq/L (3.5-5.1); Sodium 140 mEq/L (136-145); eGFR For African Americans > 60 (> 60); eGFR For Non-African Americans > 60 (> 60)
[2021-10-21] MEDS: Insulin LISPRO 300 UNITS/3 ML VIAL SUBQ SCH ×4 (04:42→23:15)
[2021-10-21] MEDS: *HR* Heparin 5,000 UNIT/ML VIAL SQ SCH ×2 (04:43→18:13)
[2021-10-21 05:17] LABS: ABG Base Excess 9 mEq/L (-2 to 3); ABG HCO3 35 mEq/L (21-27); ABG Oxygen Saturation 97 % (95-98); ABG PCO2 54 mmHg (35-45); ABG PH 7.42 pH Units (7.32-7.45); ABG PO2 93 mmHg (85-104); ABG TCO2 36 mEq/L (20-26); Blood Gas Modality AF; Blood Gas VT 500 cc
[2021-10-21] MEDS: FentaNYL (PF) 1,000 MCG/100 ML IV.SOLN IVC SCH ×3 (06:29→17:25)
[2021-10-21] MEDS: Acetylcysteine 10% 2 ML INHSOL IH SCH ×2 (07:40→20:09)
[2021-10-21] MEDS: Pantoprazole 40 MG VIAL IVP SCH (08:56)
[2021-10-21] MEDS: Docusate Oral Soln 100 MG/10 ML UDC GTUBE SCH ×2 (08:56→20:18)
[2021-10-21] MEDS: Chlorhexidine Rinse 15 ML MOUTHWASH MM SCH ×2 (08:56→20:18)
[2021-10-21] MEDS: Furosemide 20 MG TABLET PO SCH (08:56)
[2021-10-21] MEDS: Dexmedetomidine HCl 400 MCG/100 ML MLS IVC SCH (11:10)
[2021-10-21] MEDS: Saliva Stimulant 44.3ml BOTTLE PO PRN ×2 (11:42→16:00)
[2021-10-21] MEDS: Bisacodyl 10 MG RECTAL SUPPOSITORY RC SCH (12:50)
[2021-10-21] MEDS: Calcium Gluconate 1gm/50mL 1 GM/50 ML BAG IVPB SCH ×2 (12:50→13:45)
[2021-10-21] MEDS: Norepinephrine 4 MG/254 ML IV.SOLN IVC SCH (15:39)
[2021-10-21 21:37] LABS: BUN/Creatinine Ratio 44 (6-26); Blood Urea Nitrogen 27 mg/dL (8-23); Calcium 8.2 mg/dL (8.6-10.3); Carbon Dioxide 37 mEq/L (23-29); Chloride 102 mEq/L (98-107); Glucose 136 mg/dL (70-105); Magnesium 2.1 mg/dL (1.6-2.6); Osmolality,Calculated 297 (280-300); Phosphorous 3.7 mg/dL (2.7-4.5); Potassium 4.4 mEq/L (3.5-5.1); Sodium 140 mEq/L (136-145); eGFR For African Americans > 60 (> 60); eGFR For Non-African Americans > 60 (> 60)
[2021-10-21 23:09] LABS: VBG Ionized Calcium 1.15 mmol/L (1.15-1.35)
[2021-10-22] MEDS: Ipratropium/Albuterol Neb 3 ML IH SCH ×7 (03:24→22:54)
[2021-10-22] MEDS: *HR* HYDROcodone/Acet 5/325 mg TABLET PO PRN ×2 (03:36→08:21)
[2021-10-22] MEDS: Artificial Tears SOLN 15 ML BOTTLE BOTH EYES SCH ×5 (04:27→21:47)
[2021-10-22 05:18] LABS: Basophils % 0.2 %; Eosinophils % 0.1 %; Hematocrit 29.7 % (37.5-50.1); Hemoglobin 9.1 g/dL (12.9-16.9); Immature Granulocytes % 0.4 % (0-4); Lymphocytes # 0.2 K/mcL (0.6-4.6); Lymphocytes % 1.5 %; Mean Corpuscular HGB Conc 30.6 g/dL (31.6-35.5); Mean Corpuscular Hemoglobin 29.1 pg (28.0-33.3); Mean Corpuscular Volume 94.9 fL (83.0-100.0); Mean Platelet Volume 11.5 fL (9.4-12.4); Monocytes # 0.6 K/mcL (0.0-1.3); Monocytes % 3.6 %; Neutrophils # 14.5 K/mcL (1.6-8.9); Platelet Count 215 K/mcL (140-400); Red Blood Count 3.13 M/mcL (4.19-5.50); Segmented Neutrophils % 94.2 %
[2021-10-22 05:20] LABS: White Blood Count 15.4 K/mcL (4.3-11.1)
[2021-10-22 05:31] LABS: BUN/Creatinine Ratio 45 (6-26); Blood Urea Nitrogen 29 mg/dL (8-23); Carbon Dioxide 38 mEq/L (23-29); Chloride 102 mEq/L (98-107); Glucose 149 mg/dL (70-105); Magnesium 2.1 mg/dL (1.6-2.6); Osmolality,Calculated 301 (280-300); Potassium 4.3 mEq/L (3.5-5.1); Sodium 141 mEq/L (136-145); eGFR For African Americans > 60 (> 60); eGFR For Non-African Americans > 60 (> 60)
[2021-10-22] MEDS: *HR* Heparin 5,000 UNIT/ML VIAL SQ SCH ×2 (06:44→17:49)
[2021-10-22] MEDS: Insulin LISPRO 300 UNITS/3 ML VIAL SUBQ SCH ×3 (06:44→17:56)
[2021-10-22] MEDS: Acetylcysteine 10% 2 ML INHSOL IH SCH ×2 (07:21→19:42)
[2021-10-22] MEDS: Chlorhexidine Rinse 15 ML MOUTHWASH MM SCH ×2 (08:14→21:47)
[2021-10-22] MEDS: Furosemide 20 MG TABLET PO SCH (08:15)
[2021-10-22] MEDS: Bisacodyl 10 MG RECTAL SUPPOSITORY RC SCH (08:15)
[2021-10-22] MEDS: Pantoprazole 40 MG VIAL IVP SCH (08:15)
[2021-10-22] MEDS: Docusate Oral Soln 100 MG/10 ML UDC GTUBE SCH ×2 (08:15→21:47)
[2021-10-22] MEDS ORDERED: Potassium Phosphate 44 MEQ in 0.9 % Sodium Chloride 250 ML IVPB PRN (11:16)
[2021-10-22] MEDS ORDERED: D5% in Water 1,000 ML IVC PRN (11:16)
[2021-10-22] MEDS ORDERED: *HR* Dextrose 50 % in Water (Syg) 50 ML SYRINGE IVP PRN (11:16)
[2021-10-22] MEDS ORDERED: *HR* HYDROcodone/Acet 5/325 mg TABLET PO PRN (11:16)
[2021-10-22] MEDS ORDERED: Saliva Stimulant 44.3ml BOTTLE PO PRN (11:16)
[2021-10-22] MEDS ORDERED: Artificial Tears SOLN 15 ML BOTTLE BOTH EYES PRN (11:16)
[2021-10-22] MEDS ORDERED: *HR* LORazepam 2 MG/ML VIAL IVP PRN (11:16)
[2021-10-22] MEDS ORDERED: Bisacodyl 10 MG RECTAL SUPPOSITORY RC PRN (11:16)
[2021-10-22] MEDS ORDERED: Dextrose Gel 15 GM/37.5 ML TUBE PO PRN ×2 (11:16)
[2021-10-22] MEDS ORDERED: Ondansetron 4 MG/2 ML VIAL IVP PRN (11:16)
[2021-10-22] MEDS ORDERED: Calcium Gluconate 1gm/50mL 1 GM/50 ML BAG IVPB PRN (11:16)
[2021-10-22] MEDS ORDERED: Naloxone 0.4 MG/ML INJ IVP PRN (11:16)
[2021-10-22 15:36] LABS: VBG Ionized Calcium 1.13 mmol/L (1.15-1.35)
[2021-10-22 15:56] LABS: BUN/Creatinine Ratio 49 (6-26); Blood Urea Nitrogen 29 mg/dL (8-23); Calcium 7.9 mg/dL (8.6-10.3); Carbon Dioxide 38 mEq/L (23-29); Chloride 103 mEq/L (98-107); Glucose 150 mg/dL (70-105); Magnesium 2.1 mg/dL (1.6-2.6); Osmolality,Calculated 303 (280-300); Phosphorous 2.9 mg/dL (2.7-4.5); Potassium 4.4 mEq/L (3.5-5.1); Sodium 142 mEq/L (136-145); eGFR For African Americans > 60 (> 60); eGFR For Non-African Americans > 60 (> 60)
[2021-10-22] MEDS: levETIRAcetam 500 MG/5 ML UDC GTUBE SCH (21:47)
[2021-10-23] MEDS: Artificial Tears SOLN 15 ML BOTTLE BOTH EYES SCH ×6 (00:20→20:02)
[2021-10-23] MEDS: Ipratropium/Albuterol Neb 3 ML IH SCH ×5 (03:36→20:27)
[2021-10-23] MEDS: Insulin LISPRO 300 UNITS/3 ML VIAL SUBQ SCH ×4 (03:56→19:47)
[2021-10-23 05:45] LABS: BUN/Creatinine Ratio 53 (6-26); Blood Urea Nitrogen 31 mg/dL (8-23); Calcium 7.8 mg/dL (8.6-10.3); Carbon Dioxide 35 mEq/L (23-29); Chloride 103 mEq/L (98-107); Glucose 163 mg/dL (70-105); Osmolality,Calculated 300 (280-300); Potassium 4.4 mEq/L (3.5-5.1); Sodium 140 mEq/L (136-145); eGFR For African Americans > 60 (> 60); eGFR For Non-African Americans > 60 (> 60)
[2021-10-23] MEDS: *HR* Heparin 5,000 UNIT/ML VIAL SQ SCH ×2 (06:26→20:02)
[2021-10-23] MEDS: Acetylcysteine 10% 2 ML INHSOL IH SCH ×2 (07:21→20:27)
[2021-10-23] MEDS: Chlorhexidine Rinse 15 ML MOUTHWASH MM SCH ×2 (08:08→20:03)
[2021-10-23] MEDS: levETIRAcetam 500 MG/5 ML UDC GTUBE SCH ×2 (08:08→20:03)
[2021-10-23] MEDS: Docusate Oral Soln 100 MG/10 ML UDC GTUBE SCH ×2 (08:09→20:03)
[2021-10-23] MEDS: Pantoprazole 40 MG VIAL IVP SCH (08:09)
[2021-10-23] MEDS: Bisacodyl 10 MG RECTAL SUPPOSITORY RC SCH (08:09)
[2021-10-23 08:14] LABS: Phosphorous 2.8 mg/dL (2.7-4.5)
[2021-10-23] MEDS: *HR* OxyCODONE Oral Soln 5 MG/5 ML UD.LIQ GTUBE PRN (10:18)
[2021-10-23] MEDS ORDERED: Furosemide 40 MG/4 ML VIAL IVP ONE (10:54)
[2021-10-24] MEDS: Ipratropium/Albuterol Neb 3 ML IH SCH ×5 (00:12→15:25)
[2021-10-24] MEDS: Artificial Tears SOLN 15 ML BOTTLE BOTH EYES SCH ×4 (00:22→12:36)
[2021-10-24] MEDS: Insulin LISPRO 300 UNITS/3 ML VIAL SUBQ SCH ×3 (00:23→12:35)
[2021-10-24 03:26] LABS: BUN/Creatinine Ratio 52 (6-26); Blood Urea Nitrogen 34 mg/dL (8-23); Carbon Dioxide 36 mEq/L (23-29); Chloride 104 mEq/L (98-107); Glucose 121 mg/dL (70-105); Sodium 143 mEq/L (136-145); eGFR For African Americans > 60 (> 60); eGFR For Non-African Americans > 60 (> 60)
[2021-10-24 03:27] LABS: Calcium 7.6 mg/dL (8.6-10.3); Osmolality,Calculated 305 (280-300)
[2021-10-24] MEDS ORDERED: *HR* Metoprolol 5 MG/5 ML VIAL IVP PRN (05:05)
[2021-10-24] MEDS: *HR* Heparin 5,000 UNIT/ML VIAL SQ SCH (05:32)
[2021-10-24 07:00] LABS: Basophils % 0.3 %; Eosinophils % 0.3 %; Hemoglobin 8.8 g/dL (12.9-16.9); Immature Granulocytes % 0.4 % (0-4); Lymphocytes # 0.4 K/mcL (0.6-4.6); Lymphocytes % 3.9 %; Mean Corpuscular HGB Conc 30.3 g/dL (31.6-35.5); Mean Corpuscular Hemoglobin 28.8 pg (28.0-33.3); Mean Corpuscular Volume 94.8 fL (83.0-100.0); Mean Platelet Volume 12.7 fL (9.4-12.4); Monocytes # 0.7 K/mcL (0.0-1.3); Monocytes % 6.7 %; Neutrophils # 8.8 K/mcL (1.6-8.9); Platelet Count 124 K/mcL (140-400); Red Blood Count 3.06 M/mcL (4.19-5.50); Red Cell Distribution Width 17.2 % (11.5-14.5); Segmented Neutrophils % 88.4 %
[2021-10-24 07:03] LABS: VBG Ionized Calcium 0.79 mmol/L (1.15-1.35)
[2021-10-24] MEDS: Acetylcysteine 10% 2 ML INHSOL IH SCH (07:31)
[2021-10-24 08:02] LABS: Magnesium 2.1 mg/dL (1.6-2.6); Phosphorous 3.2 mg/dL (2.7-4.5)
[2021-10-24] MEDS: *HR* OxyCODONE Oral Soln 5 MG/5 ML UD.LIQ GTUBE PRN ×2 (09:12→15:28)
[2021-10-24] MEDS: levETIRAcetam 500 MG/5 ML UDC GTUBE SCH (09:12)
[2021-10-24] MEDS: Docusate Oral Soln 100 MG/10 ML UDC GTUBE SCH (09:12)
[2021-10-24] MEDS: Pantoprazole 40 MG VIAL IVP SCH (09:13)
[2021-10-24] MEDS: Bisacodyl 10 MG RECTAL SUPPOSITORY RC SCH (09:14)
[2021-10-24] MEDS: Chlorhexidine Rinse 15 ML MOUTHWASH MM SCH (09:24)
[2021-10-24 15:27] VITALS: O2SAT 96
[2021-10-24 15:54] VITALS: BP 120/75; PULSE 145; TEMP 97.6
== END 2021-10-24 17:21 | DRG 4 ==
LOC: EMEROOARM 10:25 → 2NENU 10:25 → SUATTDRO 13:26 → 2NENU 14:35 → SUATTDRO 10-10 12:47 → ICNU 10-10 17:52 → 2NNU 10-22 21:31
PROVIDERS: ADMIT Internal Medicine; ATTEND Internal Medicine
PROC: ENDOBFB (~2021-10-08)